=== PATIENT | female | born 1940 | race Caucasian/White ===

== ENCOUNTER → 2018-06-09 08:46 | Outpatient (CLI) | payer MEDICARE, OTHER, SELFPAY ==
[2018-06-09 08:56] LABS: Bacteria 0 SEEN /hpf (None Seen); Mucous, Urine 0 SEEN /hpf (<or=2+); Red Blood Cells-Urine 0 SEEN /hpf (0-5)
[2018-06-09 10:30] LABS: Color, Urine Straw (Yellow); Glucose, Dipstick Normal (Normal); Ketone-Dipstick Negative (Negative); Leukocyte Esterase-Dipstick Negative /ul (Negative); Nitrite-Dipstick Negative (Negative); Occult Blood-Urine 10 /ul (Negative); Protein-Dipstick Negative (Negative); Specific Gravity, Urine 1.005 (1.002-1.030); Urine Bilirubin Dipstick Negative (Negative); Urine Clarity Clear (Clear); Urine Urobilinogen Normal (Normal); Urine pH 6.5 (5.0 - 8.0)
[2018-06-09 10:38] LABS: Squamous Epithelial Cells - UA 0-5 SEEN /hpf (5-10); White Blood Cells 0-5 SEEN /hpf (0-5)
[2018-06-09 10:39] LABS: Erythrocyte Sedimentation Rate 3 mm/hr (0-30)
[2018-06-09 10:41] LABS: Absolute Lymphocyte Count 1.44 X10^3/ul (0.83-4.51); Absolute Neutrophil Count 3.5 X10^3/uL (2.0-7.7); Basophil# 0.02 X10^3/uL; Basophil% 0.4 % (0-1); Eosinophil# 0.09 X10^3/uL; Eosinophils% 1.6 % (0-5); Hematocrit 43.3 % (37-47); Hemoglobin 14.4 g/dl (12.0-15.0); Lymphocyte # 1.44 X10^3/ul (4.0); Lymphocyte % 26.3 % (19-41); Mean Corp Hgb Conc 33.3 g/gl (32-36); Mean Corpuscular Hgb 29.9 pg (27.0-32.0); Monocyte# 0.47 X10^3/uL; Monocyte% 8.6 % (0-10); Neutrophil # 3.45 X10^3/uL (2.7-7.7); Neutrophil % 62.9 % (47-70); Platelet Count 244 K/mm3 (150-450); RBC Distribution Width SD 39.1 fl (35.1-43.9); Red Blood Count 4.81 M/mm3 (4.2-5.4); White Blood Count 5.5 K/mm3 (4.4-11.0)
[2018-06-09 10:42] LABS: POSITIVE COUNT NO; POSITIVE DIFFERENTIAL NO; POSITIVE MORPHOLOGY NO
[2018-06-09 10:55] LABS: T3 Total - Triiodothyronine 1.15 ng/mL (0.6-1.81)
[2018-06-09 10:56] LABS: AST(SGOT) 18 U/L (15-37); Alanine Aminotransfer ALT/SGPT 26 U/L (13-56); Albumin, Serum 3.8 g/dL (3.2-5.0); Alkaline Phosphatase 81 U/L (45-117); Anion Gap 6 (5-15); BUN 24 mg/dL (7-18); BUN/Creat Ratio 26.4 RATIO (10-20); Calcium,Total 9.1 mg/dL (8.5-10.1); Chloride 109 mmol/L (98-107); Creatinine, Serum 0.91 mg/dL (0.55-1.02); EST Glomerular Filtration Rate 63 mL/min (>60); Est Glom Filt Rate - Afr Amer 77 mL/min (>60); Globulin 3.7 g/dL (2.2-4.2); Glucose 96 mg/dL (74-106); Potassium 4.1 mmol/L (3.5-5.1); Protein, Total 7.5 g/dL (6.4-8.2); Sodium Level 143 mmol/L (136-145); T4 Free Direct 0.94 ng/dL (0.76-1.46); Thyroid Stim Hormone (TSH) 2.29 uIU/mL (0.358-3.74)
[2018-06-11 11:00] LABS: ANTINUCLEAR ANTIBODIES DIRECT Negative (Negative)
== END ==
PROVIDERS: Family Provider Internal Medicine; PCP Internal Medicine; Referring Provider Dermatology Pediatric Dermatology; Visit Provider Dermatology Pediatric Dermatology
DX: L20.89 Other atopic dermatitis (principal); L29.8 Other pruritus; L81.7 Pigmented purpuric dermatosis
CPT/HCPCS: 36415; 80053; 81001; 84439; 84443; 84480; 85025; 85652; 86038

== ENCOUNTER → 2018-09-29 08:48 | Outpatient (CLI) | payer MEDICARE, OTHER, SELFPAY ==
[2017-10-21 08:18] VITALS: BMI 25.6
--- NOTE | 2018-09-29 12:24 | PFTCOMP ---
COMPLETE PULMONARY FUNCTION TEST INTERPRETATION Brief HPI: Patient is a 78 year old female, currently under the care of myself, who presents to [facility] for complete pulmonary function tests secondary to diagnosis of COPD. Respiratory therapist reports good effort and reproducible results. Interpretation: Forced expiration spirometry shows no large airways obstructive ventilatory defect with an FEV1 of 96% predicted. There is no significant bronchodilator response by strict ATS criteria. Spirograms are of good quality and plateau normally. The respiratory flow volume loop shows a normal pattern. Lung volumes by body plethysmography show a normal total lung capacity at 4.17 L, 96% predicted. All other lung volumes are within normal limits. Diffusion capacity by carbon monoxide is normal at 85% predicted. The airway resistance is normal. Compared to previous pulmonary function tests from 03/25/2017, there has been no significant change. Impression: These pulmonary function tests are within normal limits and show no significant international exchange coordinator the last 18 months.
== END ==
PROVIDERS: Family Provider Internal Medicine; PCP Internal Medicine; Referring Provider Nurse Practitioner Acute Care; Visit Provider Nurse Practitioner Acute Care
DX: J44.9 Chronic obstructive pulmonary disease, unspecified (principal)
CPT/HCPCS: 94060; 94726; 94729

== ENCOUNTER → 2019-10-25 | Outpatient (CLI) | payer MEDICARE, OTHER, SELFPAY ==
[2018-10-20 07:54] VITALS: BMI 27.4
[2019-10-25 17:47] LABS: Absolute Lymphocyte Count 1.63 X10^3/uL (0.83-4.51); Absolute Neutrophil Count 3.5 X10^3/uL (2.0-7.7); Basophil# 0.04 X10^3/uL; Basophil% 0.7 % (0-1); Eosinophil# 0.07 X10^3/uL; Eosinophils% 1.2 % (0-5); Hematocrit 42.7 % (37-47); Hemoglobin 14.3 g/dL (12.0-15.0); Lymphocyte # 1.63 X10^3/ul (4.0); Lymphocyte % 28.3 % (19-41); Mean Corp Hgb Conc 33.5 g/dL (32-36); Mean Corpuscular Hgb 29.5 pg (27.0-32.0); Mean Corpuscular Volume 88.2 fL (81-99); Mean Platelet Vol. 10.5 fl (6.2-12.0); Monocyte# 0.48 X10^3/uL; Monocyte% 8.3 % (0-10); NRBC Flagged by Analyzer 0 % (0-5); Neutrophil # 3.53 X10^3/uL (2.7-7.7); Neutrophil % 61.3 % (47-70); Platelet Count 245 K/mm3 (150-450); RBC Distribution Width CV 11.8 % (11.6-14.6); Red Blood Count 4.84 M/mm3 (4.2-5.4); White Blood Count 5.8 K/mm3 (4.4-11.0)
[2019-10-25 18:19] LABS: AST(SGOT) 20 U/L (15-37); Alanine Aminotransfer ALT/SGPT 24 U/L (13-56); Albumin, Serum 3.6 g/dL (3.2-5.0); Alkaline Phosphatase 92 U/L (45-117); Anion Gap 5 (5-15); BUN 22 mg/dL (7-18); BUN/Creat Ratio 18.8 RATIO (10-20); Bilirubin, Direct 0.09 mg/dL (0.00-0.30); Calcium,Total 9.1 mg/dL (8.5-10.1); Chloride 110 mmol/L (98-107); Cholesterol 207 mg/dL (200); Creatinine, Serum 1.17 mg/dL (0.55-1.02); EST Glomerular Filtration Rate 47 mL/min (>60); Est Glom Filt Rate - Afr Amer 57 mL/min (>60); Globulin 3.5 g/dL (2.2-4.2); Glucose 104 mg/dL (74-106); High Density Lipoprotein 51 mg/dL; Protein, Total 7.1 g/dL (6.4-8.2); Sodium Level 142 mmol/L (136-145); Triglycerides 160 mg/dL; Very Low Density Lipoprotein 32 mg/dL (5-40)
[2019-10-28 12:07] LABS: QNTFERON TB Mitogen Value > 10.00 IU/mL (.); QNTFERON TB Nil Value 0.04 IU/mL (.); QNTFERON TB1+ Ag Value 0.06 IU/mL (.); QNTFERON TB2+ Ag Value 0.06 IU/mL (.)
[2019-10-28 14:04] LABS: QNTIFERON TB Positive Criteria Negative (Negative)
== END | disposition home or self-care (01) ==
LOC: MTLAB 14:54
PROVIDERS: PCP Internal Medicine; Referring Provider Dermatology; Visit Provider Dermatology
DX: L40.0 Psoriasis vulgaris (principal); Z79.899 Other long term (current) drug therapy
CPT/HCPCS: 36415; 80053; 80061; 82248; 85025; 86480

== ENCOUNTER 2020-11-28 08:48 | Observation (INO) | payer MEDICARE, OTHER, SELFPAY ==
[2019-11-30 11:21] VITALS: BMI 27.4
[2020-11-28] VITALS (10 sets, daily range): BP systolic 139–178; BP diastolic 76–100; PULSE 67–75; RESP 16–21; TEMP 36.3–36.8; O2SAT 96–100; BMI 27.8; BMI 28.5
--- NOTE | 2020-11-28 09:06 | EKG12_ITS ---
Test Reason : DIZZY Blood Pressure : / mmHG Vent. Rate : 068 BPM Atrial Rate : 068 BPM P-R Int : 158 ms QRS Dur : 090 ms QT Int : 436 ms P-R-T Axes : 030 -17 022 degrees QTc Int : 463 ms Normal sinus rhythm Inferior infarct , age undetermined Anterior infarct , age undetermined Abnormal ECG Confirmed by NIKUNJ HUDDLESTON, JON ([id number]), marketing editor MARCOS SAENZ ([id number]) on 12/01/2020 2:52:26 PM Referred By: FAWN Confirmed By:AMANDA CALVIN MD
--- NOTE | 2020-11-28 09:06 | CT_ITS ---
STUDY: CT BRAIN WITHOUT CONTRAST REASON FOR EXAM: Female, 80 years old. Vertigo RADIATION DOSAGE (If Supplied By Facility): CTDIvol = ( 44.99 ) mGy, DLP = ( 779.24 ) mGycm TECHNIQUE: Transaxial CT imaging of the brain was performed without administration of intravenous contrast material. Individualized dose optimization techniques were used for this CT. COMPARISON: No relevant priors. FINDINGS: Normal soft tissue structures. Normal calvarium. There is moderate cerebral atrophy with widening of the extra-axial spaces and ventricular dilatation. There are areas of decreased attenuation within the white matter tracts of the supratentorial brain, consistent with microvascular disease changes. Normal basal ganglia and thalami. Normal brainstem. There is mild cerebellar atrophy. There is no intracranial hemorrhage. There are no findings of an acute ischemic infarction. Normal visualized paranasal sinuses. CT/Brain/Head without Contrast IMPRESSION: Chronic involutional changes of the brain. No acute hemorrhage Electronically Signed: Ja Jules MD at 10:06 EDT , Service support ,
--- NOTE | 2020-11-28 09:09 | ED.DCSUM_ITS ---
History of Present Illness Chief Complaint: Dizziness Informant: Patient Onset: Today Narrative: Presents with sudden onset of room spinning while getting ready for massage therapy. Nausea with symptoms. Symptoms worse with movement. Reports awaking with mild off balance symptoms states while walking mildly bumped her head on a cabinet however was not significant. Denies any headache or visual changes. No speech changes. No hemiparesis. States had similar symptoms 15 years ago. She states she was evaluated in ED however not admitted. Denies any stroke history. Denies any recent sinus congestion ear pain or ringing. She does wear hearing aids. Patient does report she has pain when she urinates however not significant. Prior similar symptoms: Yes Past Medical History - Allergies and Home Meds Allergies/Adverse Reactions: Allergies Latex, Natural Rubber Allergy (Mild, Verified 10/20/18 07:31) simvastatin [From Zocor] Allergy (Mild, Verified 10/20/18 07:31) guaifenesin [From Robitussin] Allergy (Verified 10/20/18 07:31) Unknown Penicillins Allergy (Verified 10/20/18 07:31) Unknown Sulfa (Sulfonamide Antibiotics) Allergy (Verified 10/20/18 07:31) Unknown Primary Care Physician: Suyapa Jordan MD [Primary Care Provider] - Past Medical History: - - COPD, hypertension Smoking Status: Never smoker Review of Systems General: Denies: Chills, Fever, Sweats Eyes: Denies: Visual changes - bilaterally, Diplopia ENT: Denies: Rhinorrhea, Sore throat Cardiovascular: Denies: Chest pain, Palpitations Respiratory: Denies: Dyspnea, Cough, Dyspnea on exertion Gastrointestinal: Reports: Nausea. Denies: Abdominal pain, Vomiting, Diarrhea, Melena, Hematochezia Genitourinary: Denies: Dysuria, Hematuria, Frequency Musculoskeletal: Denies: Back pain, Extremity Pain Skin: Denies: Rash, Wounds Neurological: Reports: - - Vertigo. Denies: Headache, Weakness, Numbness Physical Exam Vital Signs/Narrative: Vital Signs Temp Pulse Resp BP Pulse Ox 11/28/20 08:49 97.4 F L 67 17 139/84 H 100 Inital Vital Signs reviewed: Yes General: Well nourished, Well developed, No Acute Distress Head: Normocephalic, Atraumatic Eyes: Perrl, EOMI, - - No nystagmus ENT: Moist mucous membranes, No rhinorrhea Neck: Supple, Nontender Cardiovascular: Regular rate, Regular rhythm, No murmurs Respiratory: No distress, CTA bilaterally, Chest nontender Abdomen: Soft, Nontender, Nondistended, Normal bowel sounds Back: Nontender, Normal Inspection Extremities: Nontender, No edema Skin: Normal color, No rash Neurological: Alert, Oriented x3, Cranial nerves II-XII grossly intact, Normal Strength, Normal Sensation, - - NIH 0. Ivette-Hallpike did not elicit any nystagmus, however with laying down each side she would have recurrent symptoms of vertigo. Psychological: Normal affect, Normal Mood Diagnostic/Tx/Re-eval Clinical Impression(s) from Imaging Studies Brain CT 11/28/20 09:06 IMPRESSION: Chronic involutional changes of the brain. No acute hemorrhage Electronically Signed: Ja Jules MD at 10:06 EDT , Service support , Abnormal Lab Results 11/28/20 11/28/20 11/28/20 09:36 09:36 09:36 WBC 5.7 RBC 4.95 Hgb 14.6 Hct 43.8 MCV 88.5 MCH 29.5 MCHC 33.3 RDW Std Deviation 39.2 RDW Coeff of Catrina 12.1 Plt Count 249 MPV 9.6 Immature Gran % (Auto) 0.400 Neut % (Auto) 68.6 Lymph % (Auto) 22.0 [place] % (Auto) 6.3 Eos % (Auto) 1.8 Baso % (Auto) 0.9 Absolute Neuts (auto) 3.9 Absolute Lymphs (auto) 1.25 Nucleated RBC % 0 PT 11.8 INR 0.9 APTT 25.8 Sodium 142 Potassium 3.4 L Chloride 109 H Carbon Dioxide 29.0 Anion Gap 4 L BUN 17 Creatinine 0.91 Estim Creat Clear Calc 40.11 Est GFR (MDRD) Af Amer 76 Est GFR (MDRD) Non-Af 63 BUN/Creatinine Ratio 18.7 Glucose 101 Calcium 9.3 Urine Color Urine Clarity Urine pH Ur Specific [place] Urine Protein Urine Glucose (UA) Urine Ketones Urine Occult Blood Urine Nitrite Urine Bilirubin Urine Urobilinogen Ur Leukocyte Esterase Urine RBC Urine WBC Ur Squamous Epith Cells Urine Bacteria Urine Mucus 11/28/20 09:36 WBC RBC Hgb Hct MCV MCH MCHC RDW Std Deviation RDW Coeff of Catrina Plt Count MPV Immature Gran % (Auto) Neut % (Auto) Lymph % (Auto) [place] % (Auto) Eos % (Auto) Baso % (Auto) Absolute Neuts (auto) Absolute Lymphs (auto) Nucleated RBC % PT INR APTT Sodium Potassium Chloride Carbon Dioxide Anion Gap BUN Creatinine Estim Creat Clear Calc Est GFR (MDRD) Af Amer Est GFR (MDRD) Non-Af BUN/Creatinine Ratio Glucose Calcium Urine Color Yellow Urine Clarity Clear Urine pH 7.0 Ur Specific [place] 1.010 Urine Protein Negative Urine Glucose (UA) Normal Urine Ketones Negative Urine Occult Blood 10 H Urine Nitrite Negative Urine Bilirubin Negative Urine Urobilinogen Normal Ur Leukocyte Esterase 25 H Urine RBC 0-5 SEEN Urine WBC 0-5 SEEN Ur Squamous Epith Cells 0-5 SEEN Urine Bacteria 0 SEEN Urine Mucus 0 SEEN - EKG Initial EKG Interpretation: Sinus Rhythm - Sinus rate of 68, no ST changes. T wave inversion in leads III. - Medical Decision Making Patient acute vertigo symptoms. There is no nystagmus with Ivette-Hallpike however she was symptomatic on each side. Work-up initiated CT head negative basic labs normal she initially given IV Reglan with some improvement of symptoms her nausea is much better. She was ambulated to the restroom for urine sample however required 2 person assist for stability. Urine was sent had 25 leukocytes, culture sent. With patient being continued symptomatic with instability I feel she will benefit from inpatient management. Concerns there could be a posterior circulation component with her acute onset of vertigo symptoms. Bedside swallow by nursing, oral meclizine ordered. I discussed with hospitalist Dr. Dumas, patient reporting pain when she urinates with leukocytes we will give a dose of Rocephin in the ED. Urine culture pending. Patient and family updated. ED Disposition - Plan for ED Patient: Disposition: Acute Care Hospital [facility] Diagnosis: Acute severe vertigo, UTI (urinary tract infection) Referrals: Suyapa Jordan MD [Primary Care Provider] -
[2020-11-28] MEDS: Metoclopramide 10 MG/2 ML Vial 5 MG IV (09:27)
[2020-11-28] MEDS: 0.9% Normal Saline 1,000 ML 150 ML IV (09:28)
[2020-11-28 09:38] LABS: Absolute Lymphocyte Count 1.25 X10^3/uL (0.83-4.51); Absolute Neutrophil Count 3.9 X10^3/uL (2.0-7.7); Basophil# 0.05 X10^3/uL; Basophil% 0.9 % (0-1); Eosinophils% 1.8 % (0-5); Hematocrit 43.8 % (37-47); Hemoglobin 14.6 g/dL (12.0-15.0); Lymphocyte # 1.25 X10^3/ul (4.0); Mean Corp Hgb Conc 33.3 g/dL (32-36); Mean Corpuscular Hgb 29.5 pg (27.0-32.0); Mean Corpuscular Volume 88.5 fL (81-99); Mean Platelet Vol. 9.6 fl (6.2-12.0); Monocyte# 0.36 X10^3/uL; Monocyte% 6.3 % (0-10); NRBC Flagged by Analyzer 0 % (0-5); Neutrophil % 68.6 % (47-70); Platelet Count 249 K/mm3 (150-450); RBC Distribution Width CV 12.1 % (11.6-14.6); RBC Distribution Width SD 39.2 fl (35.1-43.9); Red Blood Count 4.95 M/mm3 (4.2-5.4); White Blood Count 5.7 K/mm3 (4.4-11.0)
[2020-11-28 09:49] LABS: International Normalized Ratio 0.9; Prothrombin Time (Protime)PT. 11.8 SECONDS (11.7-14.9)
[2020-11-28 09:50] LABS: Partial Thromboplast Time 25.8 Seconds (24.1-36.2)
[2020-11-28 09:52] LABS: Anion Gap 4 (5-15); BUN 17 mg/dL (7-18); BUN/Creat Ratio 18.7 RATIO (10-20); Calcium,Total 9.3 mg/dL (8.5-10.1); Chloride 109 mmol/L (98-107); Creatinine, Serum 0.91 mg/dL (0.55-1.02); EST Glomerular Filtration Rate 63 mL/min (>60); Est Glom Filt Rate - Afr Amer 76 mL/min (>60); Estimated Creatinine Clearance 40.11 ml/min; Glucose 101 mg/dL (74-106); Potassium 3.4 mmol/L (3.5-5.1); Sodium Level 142 mmol/L (136-145)
[2020-11-28 11:13] LABS: Bacteria 0 SEEN /hpf (None Seen); Mucous, Urine 0 SEEN /hpf (<or=2+)
[2020-11-28] MEDS: Meclizine 12.5 MG Tablet PO (11:13)
[2020-11-28 11:17] LABS: Color, Urine Yellow (Yellow); Glucose, Dipstick Normal (Normal); Ketone-Dipstick Negative (Negative); Leukocyte Esterase-Dipstick 25 /ul (Negative); Nitrite-Dipstick Negative (Negative); Occult Blood-Urine 10 /ul (Negative); Protein-Dipstick Negative (Negative); Urine Bilirubin Dipstick Negative (Negative); Urine Clarity Clear (Clear); Urine Urobilinogen Normal (Normal)
[2020-11-28 11:25] LABS: Red Blood Cells-Urine 0-5 SEEN /hpf (0-5); Squamous Epithelial Cells - UA 0-5 SEEN /hpf (5-10); White Blood Cells 0-5 SEEN /hpf (0-5)
[2020-11-28] MEDS: Ceftriaxone 1 GM/50 ML BAG IV (11:44)
--- NOTE | 2020-11-28 12:32 | MRI_ITS ---
STUDY: MRI BRAIN WITHOUT CONTRAST REASON FOR EXAM: Female, 80 years old. vertigo, ataxia -- Screws and plate in the left forearm TECHNIQUE: Standardized multiplanar fat and water weighted pulse sequences were obtained. COMPARISON: CT of the brain 11/28/2020 FINDINGS: Moderate atrophy and periventricular white matter ischemic change without mass effect or restricted diffusion.. Chronic ischemic changes of the michel. Normal bilateral basal ganglia. 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 There is no extra-axial fluid accumulation. Normal flow voids within the major intracranial circulation suggesting patency by spin echo criteria. Normal sella turcica, pituitary gland, infundibular stalk, optic chiasm and hypothalamus. Normal tectal plate and pineal gland. Normal midbrain, and medulla. Diffuse cerebellar atrophy.. Normal basal cisterns. Normal bilateral temporal bones. Normal bilateral internal auditory canals. Postsurgical changes of the orbits. Normal visualized paranasal sinuses. Normal calvarium and skull base. Normal visualized soft tissue structures. Normal visualized upper cervical spine. MRI/Brain without Contrast IMPRESSION: Atrophy and periventricular white matter ischemic changes. No evidence for acute infarct. Chronic ischemic changes of the michel and old lacunar infarct of left posterior thalamus Electronically Signed: Tomy Quijano MD at 16:06 EDT , Service support ,
[2020-11-28 13:15] LABS: Magnesium 2.4 mg/dL (1.6-2.6)
--- NOTE | 2020-11-28 13:35 | PCM.HP.STD ---
Problem List (1) Acute severe vertigo Status: Acute (2) UTI (urinary tract infection) Status: Acute (3) History of cataract extraction Status: Resolved (4) History of amputation of right great toe Status: Resolved (5) History of appendectomy Status: Resolved (6) history of left arm surgery Status: Resolved (7) history of hand reconstruction Status: Resolved (8) Psoriasis Status: Chronic (9) Urticaria Status: Chronic (10) Acute gastritis Status: Acute (11) Esophagitis Status: Chronic (12) Diverticulitis of colon Status: Chronic (13) Chronic cough Status: Chronic (14) Hoarseness Status: Chronic (15) Overweight Status: Chronic (16) HUMPHRIES (dyspnea on exertion) Status: Chronic (17) Stage 1 mild COPD by GOLD classification Status: Chronic History of Present Illness Date of Admission: 11/28/20 Chief Complaint: Vertigo in the morning. The patient is a 80 year old F with multiple comorbidities as listed above came to ER after she had sudden onset of vertigo. While she was getting ready for massage therapy, she felt the room was spinning along with nausea but no vomiting. She also has gait instability/loss of balance when she stands up and feels like falling. As per ER physician note, she also bumped her head on a cabinet but no significant injury. Denies headache, neck pain, blurry vision, focal weakness, numbness or tingling, dysarthria, dysphagia or language deficit. Denies previous history of a stroke. Her sister had a stroke in the past. She also complained of burning micturition but no increased frequency or urgency. UA negative WBC 0-5 cells, LE 25. Urine culture ordered. In ED, triage vitals shows elevated blood pressure 178/100, heart rate 69 but no hypoxia or tachypnea. Twelve-lead EKG shows normal sinus rhythm at 68 bpm, QTC [address] head without contrast no acute intracranial abnormality. Past Medical History Past Medical History (Chronic Problems): Chronic Problems (Last Reviewed 10/20/18 @ 07:30 by Lila Plunkett) Psoriasis (Chronic) Urticaria (Chronic) Esophagitis (Chronic) Diverticulitis of colon (Chronic) Chronic cough (Chronic) Hoarseness (Chronic) Overweight (Chronic) HUMPHRIES (dyspnea on exertion) (Chronic) Stage 1 mild COPD by GOLD classification (Chronic) Medical History: Medical History (Last Reviewed 10/20/18 @ 07:30 by Lila Plunkett) Psoriasis (Chronic) L40.9 Urticaria (Chronic) L50.9 Acute gastritis (Acute) K29.00 Esophagitis (Chronic) K20.9 Diverticulitis of colon (Chronic) K57.32 Chronic cough (Chronic) R05 Hoarseness (Chronic) R49.0 Overweight (Chronic) E66.3 HUMPHRIES (dyspnea on exertion) (Chronic) R06.09 Stage 1 mild COPD by GOLD classification (Chronic) J44.9 Allergies Latex, Natural Rubber Allergy (Mild, Verified 10/20/18 07:31) simvastatin [From Zocor] Allergy (Mild, Verified 10/20/18 07:31) guaifenesin [From Robitussin] Allergy (Verified 10/20/18 07:31) Unknown Penicillins Allergy (Verified 10/20/18 07:31) Unknown Sulfa (Sulfonamide Antibiotics) Allergy (Verified 10/20/18 07:31) Unknown Home Medications: Ambulatory Orders Medication Instructions Recorded Esomeprazole Mag Trihydrate 40 mg PO DAILY 06/24/15 [Nexium] amlodipine 10 mg tablet 10 mg PO QDAY 10/09/17 benzonatate 200 mg capsule 200 mg PO TID PRN 10/09/17 furosemide 20 mg tablet 20 mg PO DAILY 10/09/17 magnesium 250 mg tablet 125 mg PO QDAY 10/09/17 potassium gluconate 595 mg (99 mg) 595 mg PO QDAY tab 10/09/17 tablet aclidinium bromide 400 1 inh INHALATION Q12H #1 ea 11/30/19 mcg/actuation breath activated powder inhaler Aclidinium [place] [Tudorza 400 mcg IH BID 11/28/20 Pressair] Lisinopril 10 mg PO DAILY 11/28/20 Surgical History: Surgical History (Last Reviewed 10/20/18 @ 07:30 by Lila Plunkett) History of cataract extraction (Resolved) Z98.49 History of amputation of right great toe (Resolved) Z98.890, Z89.411 History of appendectomy (Resolved) Z98.890, Z90.49 history of left arm surgery (Resolved) history of hand reconstruction (Resolved) Smoking Status: Never smoker Tobacco Use: Non-smoker - *Family History Maternal Family History: Family History (Last Reviewed 10/20/18 @ 07:30 by Lila Plunkett) Mother Colon cancer Father Colon cancer Sister Breast cancer Diabetes CVA (cerebral vascular accident) Cervical cancer Brother Heart disease Daughter COPD (chronic obstructive pulmonary disease) Son Diabetes Review of Systems Constitutional: Denies: Chills, Fever, Weight Change HEENT: Reports: Difficulty Hearing - Chronic, Hard of Hearing. Denies: Difficulty Swallowing, Dysphasia, Head Aches, Hearing Changes, Nasal bleeding, Nasal Congestion, Post Nasal Drip, Sinus Congestion, Sinus Drainage, Visual Changes Cardiovascular: Denies: Chest Pain, Palpitations Respiratory: Denies: Cough, Shortness of breath at rest, Sputum production Gastrointestinal: Denies: Abdominal Pain, Nausea, Vomiting Genitourinary: Reports: Dysuria. Denies: Frequency, Hematuria, Urgency Musculoskeletal: Reports: Back Pain. Denies: Joint Pain, Joint Tenderness Skin: Denies: Rash, Wounds Neurological: Reports: Balance problems, Incoordination. Denies: Focal weakness, Numbness, Tingling Psychiatric: Denies: Anxiety, Depression, Homicidal Ideations, Suicidal Ideations Hematologic/ Lymphatic: Denies: Easy Bruising, Easy Bleeding VTE Information - Inpt Only VTE Present on Admission: No VTE Mechan Device Prophylaxis: None VTE Pharm Prophylaxis ordered?: Yes Patient Problems: Active and Suspected Problems (Last Reviewed 10/20/18 @ 07:30 by Lila Plunkett) Acute severe vertigo (Acute) UTI (urinary tract infection) (Acute) Objective: General: Alert, Oriented x3, Cooperative HEENT: No nystagmus noted. Atraumatic, PERRLA, EOMI, Normocephalic Oral: No Gingival or Mucosal Lesions/ Ulcerations Neck: Supple, No JVD, Negative Carotid Bruits Lungs: Air entry diminished in bilateral lung bases. No crepitation/rhonchi Cardiovascular: Regular rate, Regular Rhythm, Normal S1, Normal S2, No murmurs Abdomen: Bowel Sounds Present, Soft, Non Tender, Non-Distended : No renal angle tenderness. No suprapubic tenderness. Extremities: No edema, Capillary Refill Less than 3 Seconds Skin: No rashes, No breakdown Musculoskeletal: No Tenderness to Palpation of Joints or Extremities. Gait instability. Neurological: Cranial nerves II-XII grossly intact, Deep Tendon Reflexes 2+/4. NIHSS stroke scale 2; 1 for left leg mild drift and 1 for abnormal finger-nose test/heel valenzuela test. Mild weakness on the left lower leg. Psych/Mental Status: Normal Affect, Appropriate. - Physical Exam Vitals/I&O's: Vital Signs Temp Pulse Resp BP Pulse Ox 97.4 F L 70 18 168/80 H 97 11/28/20 12:26 11/28/20 12:26 11/28/20 12:26 11/28/20 12:26 11/28/20 12:26 Oxygen Delivery Method Room Air Weight: 155 lb 14.4 oz Body Mass Index (BMI) 28.5 Intake and Output for Last 24 Hours 11/26/20 11/27/20 11/28/20 23:59 23:59 23:59 Intake Total 50 / 50 Balance 50 / 50 Laboratory Results 11/28/20 09:36: WBC 5.7, RBC 4.95, Hgb 14.6, Hct 43.8, MCV 88.5, MCH 29.5, MCHC 33.3, RDW Std Deviation 39.2, RDW Coeff of Catrina 12.1, Plt Count 249, MPV 9.6, Immature Gran % (Auto) 0.400, Neut % (Auto) 68.6, Lymph % (Auto) 22.0, [place] % (Auto) 6.3, Eos % (Auto) 1.8, Baso % (Auto) 0.9, Absolute Neuts (auto) 3.9, Absolute Lymphs (auto) 1.25, Nucleated RBC % 0 11/28/20 09:36: Sodium 142, Potassium 3.4 L, Chloride 109 H, Carbon Dioxide 29.0, Anion Gap 4 L, BUN 17, Creatinine 0.91, Estim Creat Clear Calc 40.11, Est GFR (MDRD) Af Amer 76, Est GFR (MDRD) Non-Af 63, BUN/Creatinine Ratio 18.7, Glucose 101, Calcium 9.3 11/28/20 09:36: PT 11.8, INR 0.9, APTT 25.8 11/28/20 09:36: Urine Color Yellow, Urine Clarity Clear, Urine pH 7.0, Ur Specific [place] 1.010, Urine Protein Negative, Urine Glucose (UA) Normal, Urine Ketones Negative, Urine Occult Blood 10 H, Urine Nitrite Negative, Urine Bilirubin Negative, Urine Urobilinogen Normal, Ur Leukocyte Esterase 25 H, Urine RBC 0-5 SEEN, Urine WBC 0-5 SEEN, Ur Squamous Epith Cells 0-5 SEEN, Urine Bacteria 0 SEEN, Urine Mucus 0 SEEN 11/28/20 12:50: Magnesium 2.4, Troponin I < 0.015 Current Medications Acetaminophen (Acetaminophen 325 Mg Tablet) 650 mg PO Q6H PRN PRN PRN Reason: Pain Score 1-10/Temp > 100.7 F Al Hydroxide/Mg Hydroxide (Mag Hydrox/Al Hydrox/Simeth 30 Ml Udc) 30 ml PO Q6H PRN PRN PRN Reason: Gastric Burning Albuterol Sulfate (Albuterol 2.5 Mg/3 Ml Vial.Neb.) 2.5 mg INHALATION Q2H PRN PRN PRN Reason: SOB/Wheezing Amlodipine Besylate (Amlodipine 10 Mg Tablet) 10 mg PO DAILY [facility] Benzonatate (Benzonatate 100 Mg Capsule) 200 mg PO TID PRN PRN Reason: COUGH Furosemide (Furosemide 20 Mg Tablet) 20 mg PO DAILY [facility] Hydralazine HCl (Hydralazine 20 Mg/Ml Vial) 5 mg IV Q30M PRN PRN Reason: to maintain BP goals Lactated Ringer's () 1,000 mls @ 75 mls/hr IV .[id number] [facility] Stop: 11/29/20 01:51 Labetalol HCl (Labetalol (Prefilled) 20 Mg/4 Ml) 10 - 20 mg IV Q10M PRN PRN PRN Reason: to Maintain BP Goals Lisinopril (Lisinopril 10 Mg Tablet) 10 mg PO DAILY [facility] Morphine Sulfate (Morphine 2 Mg/Ml Syringe) 2 mg IV Q3H PRN PRN PRN Reason: Pain Score 6-10 Nitroglycerin (Nitroglycerin (Inpatient Use) 0.4 Mg Tab.Subl) 0.4 mg SL Q5M PRN PRN Reason: CARDIAC/CHEST PAIN Ondansetron HCl (Ondansetron 4 Mg/2 Ml Vial) 4 mg IV Q8H PRN PRN PRN Reason: NAUSEA/VOMITING Oxycodone HCl (Oxycodone 5 Mg Tablet) 5 mg PO Q4H PRN PRN PRN Reason: Pain Score 4-5 Pantoprazole Sodium (Pantoprazole Sodium 40 Mg Tablet) 40 mg PO DAILY [facility] Assessment/Plan All Active Problems (Last Reviewed 10/20/18 @ 07:30 by Lila Plunkett) Acute severe vertigo (Acute) UTI (urinary tract infection) (Acute) History of cataract extraction (Resolved) History of amputation of right great toe (Resolved) History of appendectomy (Resolved) history of left arm surgery (Resolved) history of hand reconstruction (Resolved) Acute gastritis (Acute) This 80-year-old female admitted for sudden onset of vertigo and found to have gait instability/loss of equilibrium. 1. Vertigo/gait instability concern for posterior fossa stroke: Patient is being admitted to PCU. Follow up TIA/stroke protocol with NIH stroke scale monitoring, BP and glucose control and MRI brain. PT OT and speech evaluation. If MRI is abnormal/positive for acute stroke, will do head and neck vascular study and 2D echo. EKG shows normal sinus rhythm. troponin magnesium normal. No prior history of a stroke. 2. Concern of acute cystitis: Burning micturition but UA is benign. Empirically started on IV ceftriaxone. Urine culture ordered. 3. Stage I mild COPD: At home, patient is Tudorza inhalation. DuoNeb as needed while in the hospital for shortness of breath. 4. Hypertension: Current 148/76. Control blood pressure as per stroke guidelines. 5. Other chronic comorbidities include gastritis, esophagitis, psoriasis history of urticaria: Home medication reconciliation done. VTE prophylaxis: On Lovenox 40 mg subcu daily. Living will/advanced directive/end of life care: Patient does not have living will or advanced directive. Her , Yossi Strickland is next to kin and power of regulatory attorney for health. After discussion of benefits/risks procedures involved with full code, DNR CC arrest and DNR CC, the patient opted for DNR-CC Arrest with no intubation Patient does not want artificial life support including intubation, tube feed, ventilator and/chest compression, central venous catheter, vasopressor and DC shock if needed but at same time does not want to be neglected. She was reassured of proper medical care; not to be neglected. Total time spent in [id number]-[id number] encounter in discussion of advanced directive 16 minutes. OBSV E&M: 73670 Initial observation care L3 Procedures: 15847 Advncd Care Plan 30 Min
[2020-11-28] MEDS: Potassium Chloride Oral Tablet 20 MEQ 40 MEQ PO (13:53)
[2020-11-28] MEDS: Lactated Ringers 1,000 ML 75 ML IV (13:54)
[2020-11-28] MEDS: Enoxaparin 40 MG/0.4 ML Syringe SC (16:21)
[2020-11-29] VITALS (7 sets, daily range): BP systolic 119–145; BP diastolic 77–90; PULSE 68–79; RESP 16–18; TEMP 36.6–37.1; O2SAT 97–98
[2020-11-29 05:47] LABS: Anion Gap 2 (5-15); BUN 13 mg/dL (7-18); Calcium,Total 8.9 mg/dL (8.5-10.1); Chloride 110 mmol/L (98-107); Cholesterol 174 mg/dL (200); Creatinine, Serum 0.86 mg/dL (0.55-1.02); EST Glomerular Filtration Rate 67 mL/min (>60); Est Glom Filt Rate - Afr Amer 81 mL/min (>60); Estimated Creatinine Clearance 40.58 ml/min; Glucose 91 mg/dL (74-106); High Density Lipoprotein 39 mg/dL; Potassium 3.8 mmol/L (3.5-5.1); Sodium Level 142 mmol/L (136-145); Thyroid Stim Hormone (TSH) 2.92 uIU/mL (0.358-3.74); Triglycerides 188 mg/dL; Very Low Density Lipoprotein 38 mg/dL (5-40)
[2020-11-29] MEDS: Pantoprazole Sodium 40 MG Tablet PO (09:17)
[2020-11-29] MEDS: Furosemide 20 MG Tablet PO (09:17)
--- NOTE | 2020-11-29 09:31 | PCM.DC ---
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) You will use the following diet at home:: Cardiac Your food should be the consistency of: Regular Discharge Activity: May Not Drive Weight Bearing Status: Weight bearing as tolerated Call your doctor if you observe: Fever of 101 or Higher, Numbness or Tingling, Change in Color, Inability to urinate, Inability to have a bowel movement, Using more than one pad per hour, Shortness of breath, Dizziness, Fainting spells, Swelling in the ankles, Chest pain, Prolonged hiccoughing, Increased palpitations (irregular heartbeat), Calf discomfort, Uncontrolled pain Allergies/Adverse Reactions: Allergies Latex, Natural Rubber Allergy (Mild, Verified 10/20/18 07:31) simvastatin [From Zocor] Allergy (Mild, Verified 10/20/18 07:31) guaifenesin [From Robitussin] Allergy (Verified 10/20/18 07:31) Unknown Penicillins Allergy (Verified 10/20/18 07:31) Unknown Sulfa (Sulfonamide Antibiotics) Allergy (Verified 10/20/18 07:31) Unknown Medications to take at Discharge Esomeprazole Mag Trihydrate [Nexium] 40 mg PO DAILY 06/24/15 benzonatate 200 mg capsule 200 mg PO TID PRN 10/09/17 magnesium 250 mg tablet 125 mg PO QDAY 10/09/17 potassium gluconate 595 mg (99 mg) tablet 595 mg PO QDAY tab 10/09/17 aclidinium bromide 400 mcg/actuation breath activated powder inhaler 1 inh INHALATION Q12H #1 ea 11/30/19 Aclidinium [place] [Tudorza Pressair] 400 mcg IH BID 11/28/20 Amlodipine Besylate [Norvasc] 10 mg PO QDAY #0 11/29/20 Furosemide [Lasix] 20 mg PO DAILY PRN PRN #0 11/29/20 Lisinopril 10 mg PO DAILY #0 11/29/20 Meclizine HCl [Antivert] 12.5 mg PO 4X/DAY PRN PRN #30 tablet 11/29/20 The following prescriptions were given: Meclizine HCl [Antivert] 12.5 mg PO 4X/DAY PRN PRN #30 tablet PRN Reason: dizziness Transmission Status: Pending to [facility]/pharmacy #[id number] Primary Care Physician: Suyapa Jordan MD [Primary Care Provider] - Please follow up with your Primary Care Physician in: in 2 weeks Test Results: Test results from this visit will be discussed in further detail at your follow-up appointment, if applicable.
--- NOTE | 2020-11-29 09:33 | DS.PCM_ITS ---
Discharge Date and Diagnosis - Problem List Patient Problems: Active and Suspected Problems (Last Reviewed 10/20/18 @ 07:30 by Lila Plunkett) Acute severe vertigo (Acute) UTI (urinary tract infection) (Acute) Acute gastritis (Acute) Date of Admission: 11/28/20 Date of Discharge: 11/29/20 - Primary Discharge Diagnosis Acute Problems: Active Problems (Last Reviewed 10/20/18 @ 07:30 by Lila Plunkett) Acute severe vertigo (Acute) UTI (urinary tract infection) (Acute) Acute gastritis (Acute) - Secondary Discharge Diagnosis Chronic Problems: Chronic Problems (Last Reviewed 10/20/18 @ 07:30 by Lila Plunkett) Psoriasis (Chronic) Urticaria (Chronic) Esophagitis (Chronic) Diverticulitis of colon (Chronic) Chronic cough (Chronic) Hoarseness (Chronic) Overweight (Chronic) HUMPHRIES (dyspnea on exertion) (Chronic) 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 1. Vertigo/gait instability most likely due to BPPV patient is being admitted to PCU. MRI brain negative for acute change. 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 Patient was evaluated by PT and OT and recommended no further therapy. Patient symptoms resolved. EKG shows normal sinus rhythm. troponin magnesium normal. No prior history of a stroke. 2. Mild acute cystitis: Burning micturition but UA is benign. 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 Patient had 1 dose of Rocephin in the hospital. Culture is in nonpathologic range but decided to treat this patient with symptoms. Discharged on Levaquin 500 mg daily for 2 days. 3. Stage I mild COPD: At home, patient is Tudorza inhalation. Tudorza resumed 4. Hypertension: Current 148/76. BP controlled. 5. Other chronic comorbidities include gastritis, esophagitis, psoriasis history of urticaria: Discharge medication reconciliation done. Discharge follow-up instructions completed. Discharge process discussed with the patient and all questions were answered to patient's satisfaction. Prescription for meclizine given. Patient advised to follow-up with neurologist Dr. Meyer Total time spent, exact 35 minutes on discharge meds reconciliation, examination, coordination of care with nurses and ancillary staff, review of imaging and blood test and discussion with the patient on follow-up instructions Patient Problems: Active and Suspected Problems (Last Reviewed 10/20/18 @ 07:30 by Lila Plunkett) Acute severe vertigo (Acute) UTI (urinary tract infection) (Acute) Acute gastritis (Acute) Objective: Seen and examined. Patient dizziness and vertigo has resolved. At bedside, Ivette-Hallpike test was done was negative for vertigo, dizziness or nystagmus. Dysuria has resolved. On physical exam General: Alert, Oriented x3, Cooperative HEENT: No nystagmus noted. Atraumatic, PERRLA, EOMI, Normocephalic Oral: No Gingival or Mucosal Lesions/ Ulcerations Neck: Supple, No JVD, Negative Carotid Bruits Lungs: Air entry diminished in bilateral lung bases. No crepitation/rhonchi Cardiovascular: Regular rate, Regular Rhythm, Normal S1, Normal S2, No murmurs Abdomen: Bowel Sounds Present, Soft, Non Tender, Non-Distended : No renal angle tenderness. No suprapubic tenderness. Extremities: No edema, Capillary Refill Less than 3 Seconds Skin: No rashes, No breakdown Musculoskeletal: No Tenderness to Palpation of Joints or Extremities. Gait instability. Neurological: Cranial nerves II-XII grossly intact, Deep Tendon Reflexes 2+/4. NIH stroke scale 0. Psych/Mental Status: Normal Affect, Appropriate. - Physical Exam Vitals/I&O's: Vital Signs Temp Pulse Resp BP Pulse Ox 98.2 F 79 16 142/81 H 97 11/29/20 02:15 11/29/20 07:35 11/29/20 02:15 11/29/20 02:15 11/29/20 02:15 Oxygen Delivery Method Room Air Weight: 155 lb 14.4 oz Body Mass Index (BMI) 28.5 Intake and Output for Last 24 Hours 11/27/20 11/28/20 11/29/20 23:59 23:59 23:59 Intake Total 1227.5 / 1227.5 1240 / 1240 Balance 1227.5 / 1227.5 1240 / 1240 Laboratory Results 11/28/20 09:36: WBC 5.7, RBC 4.95, Hgb 14.6, Hct 43.8, MCV 88.5, MCH 29.5, MCHC 33.3, RDW Std Deviation 39.2, RDW Coeff of Catrina 12.1, Plt Count 249, MPV 9.6, Immature Gran % (Auto) 0.400, Neut % (Auto) 68.6, Lymph % (Auto) 22.0, [place]oup % (Auto) 6.3, Eos % (Auto) 1.8, Baso % (Auto) 0.9, Absolute Neuts (auto) 3.9, Absolute Lymphs (auto) 1.25, Nucleated RBC % 0 11/28/20 09:36: Sodium 142, Potassium 3.4 L, Chloride 109 H, Carbon Dioxide 29.0, Anion Gap 4 L, BUN 17, Creatinine 0.91, Estim Creat Clear Calc 40.11, Est GFR (MDRD) Af Amer 76, Est GFR (MDRD) Non-Af 63, BUN/Creatinine Ratio 18.7, Glucose 101, Calcium 9.3 11/28/20 09:36: PT 11.8, INR 0.9, APTT 25.8 11/28/20 09:36: Urine Color Yellow, Urine Clarity Clear, Urine pH 7.0, Ur Specific Hooper 1.010, Urine Protein Negative, Urine Glucose (UA) Normal, Urine Ketones Negative, Urine Occult Blood 10 H, Urine Nitrite Negative, Urine Bilirubin Negative, Urine Urobilinogen Normal, Ur Leukocyte Esterase 25 H, Urine RBC 0-5 SEEN, Urine WBC 0-5 SEEN, Ur Squamous Epith Cells 0-5 SEEN, Urine Bacteria 0 SEEN, Urine Mucus 0 SEEN 11/28/20 12:50: Magnesium 2.4, Troponin I < 0.015 11/29/20 05:00: Sodium 142, Potassium 3.8, Chloride 110 H, Carbon Dioxide 30.0, Anion Gap 2 L, BUN 13, Creatinine 0.86, Estim Creat Clear Calc 40.58, Est GFR (MDRD) Af Amer 81, Est GFR (MDRD) Non-Af 67, BUN/Creatinine Ratio 15.0, Glucose 91, Calcium 8.9, Triglycerides 188, Cholesterol 174, LDL Cholesterol 97, VLDL Cholesterol 38, HDL Cholesterol 39 L, TSH 2.92 Current Medications Acetaminophen (Acetaminophen 325 Mg Tablet) 650 mg PO Q6H PRN PRN PRN Reason: Pain Score 1-10/Temp > 100.7 F Al Hydroxide/Mg Hydroxide (Mag Hydrox/Al Hydrox/Simeth 30 Ml Udc) 30 ml PO Q6H PRN PRN PRN Reason: Gastric Burning Albuterol/Ipratropium (Ipratropium/Albuterol Sulfate 3 Ml Ampul.Neb) 3 ml INHALATION Q4HWA.RT PRN PRN Reason: shortness of Breath Amlodipine Besylate (Amlodipine 10 Mg Tablet) 10 mg PO DAILY [facility] Last Admin: 11/29/20 09:20 Dose: Not Given Documented by: Benzonatate (Benzonatate 100 Mg Capsule) 200 mg PO TID PRN PRN Reason: COUGH Enoxaparin Sodium (Enoxaparin 40 Mg/0.4 Ml Syringe) 40 mg SC DAILY [facility] Last Admin: 11/29/20 09:20 Dose: Not Given Documented by: Furosemide (Furosemide 20 Mg Tablet) 20 mg PO DAILY [facility] Last Admin: 11/29/20 09:17 Dose: 20 mg Documented by: Hydralazine HCl (Hydralazine 20 Mg/Ml Vial) 5 mg IV Q30M PRN PRN Reason: to maintain BP goals Labetalol HCl (Labetalol (Prefilled) 20 Mg/4 Ml) 10 - 20 mg IV Q10M PRN PRN PRN Reason: to Maintain BP Goals Lisinopril (Lisinopril 10 Mg Tablet) 10 mg PO DAILY [facility] Morphine Sulfate (Morphine 2 Mg/Ml Syringe) 2 mg IV Q3H PRN PRN PRN Reason: Pain Score 6-10 Nitroglycerin (Nitroglycerin (Inpatient Use) 0.4 Mg Tab.Subl) 0.4 mg SL Q5M PRN PRN Reason: CARDIAC/CHEST PAIN Ondansetron HCl (Ondansetron 4 Mg/2 Ml Vial) 4 mg IV Q8H PRN PRN PRN Reason: NAUSEA/VOMITING Oxycodone HCl (Oxycodone 5 Mg Tablet) 5 mg PO Q4H PRN PRN PRN Reason: Pain Score 4-5 Pantoprazole Sodium (Pantoprazole Sodium 40 Mg Tablet) 40 mg PO DAILY [facility] Last Admin: 11/29/20 09:17 Dose: 40 mg Documented by: Discharge Activity: May Not Drive Weight Bearing Status: Weight bearing as tolerated Call your doctor if you observe: Fever of 101 or Higher, Numbness or Tingling, Change in Color, Inability to urinate, Inability to have a bowel movement, Using more than one pad per hour, Shortness of breath, Dizziness, Fainting spells, Swelling in the ankles, Chest pain, Prolonged hiccoughing, Increased palpitations (irregular heartbeat), Calf discomfort, Uncontrolled pain Home Medications: Medications to take at Discharge Esomeprazole Mag Trihydrate [Nexium] 40 mg PO DAILY 06/24/15 benzonatate 200 mg capsule 200 mg PO TID PRN 10/09/17 magnesium 250 mg tablet 125 mg PO QDAY 10/09/17 potassium gluconate 595 mg (99 mg) tablet 595 mg PO QDAY tab 10/09/17 aclidinium bromide 400 mcg/actuation breath activated powder inhaler 1 inh INHALATION Q12H #1 ea 11/30/19 Aclidinium [place] [Tudorza Pressair] 400 mcg IH BID 11/28/20 Amlodipine Besylate [Norvasc] 10 mg PO QDAY #0 11/29/20 Furosemide [Lasix] 20 mg PO DAILY PRN PRN #0 11/29/20 Lisinopril 10 mg PO DAILY #0 11/29/20 Meclizine HCl [Antivert] 12.5 mg PO 4X/DAY PRN PRN #30 tablet 11/29/20 levoFLOXacin tablet [Levaquin tablet] 500 mg PO DAILY #2 tablet 11/29/20 Following Prescriptions Were Given to Patient: Meclizine HCl [Antivert] 12.5 mg PO 4X/DAY PRN PRN #30 tablet PRN Reason: dizziness Transmission Status: Received by [facility]/pharmacy #[id number] levoFLOXacin tablet [Levaquin tablet] 500 mg PO DAILY #2 tablet Transmission Status: Received by [facility]/pharmacy #[id number] Primary Care Physician: Suyapa Jordan MD [Primary Care Provider] - Please follow up with your Primary Care Physician in: in 2 weeks Medical Necessity - Tobacco Use Smoking Status: Never smoker Tobacco Use: Non-smoker Meaningful Use Info Meaningful Use Diagnoses (Choose all that apply): None applicable OBSV E&M: 46655 Observation care discharge
[2020-11-29] MEDS: Lisinopril 10 MG Tablet PO (09:34)
--- NOTE | 2020-11-29 10:34 | CASEMGMT ---
Per therapy, pt does not need any further therapy at discharge. Pt has DME, if needed. SStaten RN CM
--- NOTE | 2020-11-29 14:08 | NURSING ---
message left regarding antibiotic RX being sent to [facility] pharmacy for UTI with call back number for questions.
== END 2020-11-29 09:32 | disposition home or self-care (01) ==
LOC: ED 11:34 → PCU 11:38
PROVIDERS: Admitting Provider Internal Medicine; Emergency Provider Emergency Medicine; PCP Internal Medicine; Visit Provider Internal Medicine
DX: R42 Dizziness and giddiness (principal); K29.00 Acute gastritis without bleeding; N30.00 Acute cystitis without hematuria; I10 Essential (primary) hypertension; J44.9 Chronic obstructive pulmonary disease, unspecified; Z79.899 Other long term (current) drug therapy; Z89.411 Acquired absence of right great toe; L40.9 Psoriasis, unspecified; B95.4 Other streptococcus as the cause of diseases classified elsewhere; R29.700 NIHSS score 0; R49.0 Dysphonia
CPT/HCPCS: 36415; 70450; 70551; 80048; 80061; 81001; 83735; 84443; 84484; 85025; 85610; 85730; 87077; 87086; 87088; 87186; 92522; 92610; 93005; 94762; 96361; 96365; 96366; 96372; 96375; 97162; 97166; 99218; 99251; 99285; J7030; J7120; G0378; G0463

== ENCOUNTER 2021-04-06 12:00 | Emergency (ER) | payer MEDICARE, OTHER, SELFPAY ==
[2020-11-28 12:24] VITALS: BMI 28.5
[2021-04-06 12:01] VITALS: BP 168/92; PULSE 75; RESP 18; TEMP 36.3; O2SAT 96; BMI 26.9
[2021-04-06 12:12] VITALS: BP 166/92; PULSE 76; RESP 21; O2SAT 96
--- NOTE | 2021-04-06 12:20 | EKG12_ITS ---
Test Reason : DIZZINESS Blood Pressure : / mmHG Vent. Rate : 071 BPM Atrial Rate : 071 BPM P-R Int : 150 ms QRS Dur : 088 ms QT Int : 408 ms P-R-T Axes : 045 005 034 degrees QTc Int : 443 ms Normal sinus rhythm Anterior infarct , age undetermined Abnormal ECG Confirmed by GONZÁLEZ HUDDLESTON, TAMERA ([id number]), associate entertainment editor KATTY WATTERS ([id number]) on 04/10/2021 9:10:06 AM Referred By: ANN/JONEL Confirmed By:TAMERA CLAUDIO MD
--- NOTE | 2021-04-06 12:35 | EX.ED.DYSGE1 ---
HPI History of Present Illness Chief Complaint: Dizziness Informant: patient Narrative Narrative: Patient is an 81-year-old female who presents to the emergency department for an episode of dizziness and high blood pressure. 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 Whenever she stood up she felt very dizzy. She told the other volunteers that she needed to sit down. They checked her blood pressure and it was in the 170 systolic. At that time they called the EMS crew to get her to the emergency department. Patient does have a history of vertigo. She is feeling better at this time but does not feel completely back to her baseline. She did have a slight left-sided headache. She denies any vision changes. No weakness or loss of sensation. No issues with word finding. She does not take anything for her symptoms. Patient does have a history of high blood pressure and did have a recent decrease in her amlodipine from 5 to 2.5 mg as she was dropping her blood pressures. She denies any chest pain or shortness of breath. No heart palpitations. No vomiting. [facility] Medical History (Updated 04/06/21 @ 13:[address] Kp Joiner, ) Acute gastritis Chronic cough Diverticulitis of colon HUMPHRIES (dyspnea on exertion) Esophagitis Hoarseness Overweight Psoriasis Stage 1 mild COPD by GOLD classification Urticaria Home Medications esomeprazole magnesium 40 mg PO DAILY 06/24/15 [History Last Taken Unknown] benzonatate 200 mg capsule 200 mg PO TID PRN 10/09/17 [History Last Taken Unknown] magnesium 250 mg tablet 125 mg PO QDAY 10/09/17 [History Last Taken Unknown] potassium gluconate 595 mg (99 mg) tablet 595 mg PO QDAY tab 10/09/17 [History Last Taken Unknown] aclidinium bromide 400 mcg/actuation breath activated powder inhaler 1 inh INHALATION Q12H #1 ea 11/30/19 [Rx Last Taken Unknown] aclidinium bromide 400 mcg IH BID 11/28/20 [History Last Taken Unknown] amlodipine 10 mg PO QDAY #0 11/29/20 [Rx Last Taken Unknown] furosemide 20 mg PO DAILY PRN PRN #0 11/29/20 [Rx Last Taken Unknown] levofloxacin 500 mg PO DAILY #2 tablet 11/29/20 [Rx Last Taken Unknown] lisinopril 10 mg PO DAILY #0 11/29/20 [Rx Last Taken Unknown] meclizine 12.5 mg PO 4X/DAY PRN PRN #30 tablet 11/29/20 [Rx Last Taken Unknown] meclizine 25 mg PO 4X/DAY PRN PRN #20 tab 04/06/21 [Rx Last Taken Unknown] Allergy/AdvReac Type Severity Reaction Status Date / Time Latex, Natural Rubber Allergy Mild Verified 04/06/21 12:01 simvastatin [From Zocor] Allergy Mild Verified 04/06/21 12:01 guaifenesin [From Robitussin] Allergy Unknown Verified 04/06/21 12:01 Penicillins Allergy Unknown Verified 04/06/21 12:01 Sulfa (Sulfonamide Allergy Unknown Verified 04/06/21 12:01 Antibiotics) Family History Mother Colon cancer Father Colon cancer Sister Breast cancer Diabetes CVA (cerebral vascular accident) Cervical cancer Brother Heart disease Daughter COPD (chronic obstructive pulmonary disease) Son Diabetes Surgical History History of amputation of right great toe History of appendectomy History of cataract extraction history of hand reconstruction history of left arm surgery Social History Smoking Status: Never smoker ROS ROS ED Constitutional Constitutional ED: Denies chills or fever(s) Eyes Eyes: Denies change in vision ENT ENT ED: Denies epistaxis or rhinorrhea Cardiovascular Cardiovascular: Denies chest pain or palpitations Respiratory/Chest Respiratory/Chest: Denies cough, dyspnea or dyspnea on exertion Gastrointestinal Gastrointestinal: Denies abdominal pain, diarrhea, nausea or vomiting Genitourinary Genitourinary ED: Denies dysuria, hematuria or urinary frequency Musculoskeletal Musculoskeletal: Denies back pain or neck pain Integumentary Denies rash Neurologic Neurologic: Reports headache(s) and other Details: Dizziness ; Denies weakness EXAM Physical Exam Const Vital Signs: 04/06/21 12:01 04/06/21 12:12 04/06/21 13:54 Temperature 97.4 F L Temperature Source Temporal Pulse Rate 75 76 78 Respiratory Rate 18 21 H 18 Blood Pressure 168/92 H 166/92 H 160/97 H Blood Pressure Mean 117 116 Pulse Ox 96 96 96 Oxygen Delivery Method Room Air Room Air Positive well nourished and well developed General Appearance ED: well developed and NAD HEENT Reports normocephalic and head/scalp atraumatic Eyes PERRL and EOMs intact bilaterally Neck supple Resp normal respiratory effort and clear to auscultation bilaterally Auscultation: Negative for rales, rhonchi or wheezes Cardio regular rate, regular rhythm and no murmurs GI normal to inspection, nondistended, normoactive bowel sounds and non-tender Palpation: soft; Negative for guarding or rebound tenderness present Back/Spine no CVA tenderness Extremity normal to inspection General Extremety ED: Negative for edema or tenderness General Extremity: Negative for edema Neuro oriented x3, CN's II-XII intact bilaterally and no sensory deficits noted Neuro Narrative: NIH score of 0. Sensorium / Orientation: alert Motor Exam: strength 5/5 throughout Psych mental status grossly normal Skin no rashes or lesions noted MDM MDM MDM Narrative Medical decision making narrative: Patient presents [facility] department for an episode of dizziness when moving from bent over to standing position lifting. She is feeling better at this time. On arrival to the ED she does have high blood pressure but is starting to trend downward. She is a benign physical exam. She states that she is embarrassed to be here and she thinks that they overreacted at the [facility]. EKG was performed per protocol. This time we will trial a dose of meclizine. This time I do not feel any imaging or lab work is necessary. On reexamination patient resting comfortably. She is feeling better at this time. This time I believe she is stable for discharge. We will write a prescription for meclizine for home treatment to take as needed. She has had this before. She is to follow-up with her PCP. Return precautions are reviewed with her. All questions were answered. EKG Initial EKG: Attestation: I personally reviewed and interpreted this EKG as follows: (Rate of 71 bpm and normal sinus rhythm. Normal intervals. Normal axis. No significant ST elevations or depressions. No T wave abnormalities.) Discharge Plan Triage Chief Complaint: Dizziness Other Complaint: Hypertension ED Provider: Kp Joiner Dx/Rx/DC Orders Clinical Impression: Dizziness Instructions: ED Dizziness, Uncertain Cause Prescriptions: New meclizine 25 mg tablet 25 mg PO 4X/DAY PRN PRN (Reason: Dizziness) Qty: 20 RF: 0 No Action benzonatate 200 mg capsule 200 mg PO TID PRN (Reason: Cough) RF: 0 magnesium 250 mg tablet 125 mg PO QDAY RF: 0 potassium gluconate 595 mg (99 mg) tablet 595 mg PO QDAY RF: 0 Tudorza Pressair 400 mcg/actuation aerosol powdr breath activated 1 inh INHALATION Q12H Qty: 1 RF: 11 esomeprazole magnesium 40 MG capsule 40 mg PO DAILY RF: 0 aclidinium bromide 400 MCG aerosol powdr breath activated 400 mcg IH BID RF: 0 meclizine 12.5 MG tablet 12.5 mg PO 4X/DAY PRN PRN (Reason: dizziness) Qty: 30 RF: 0 amlodipine 10 mg tablet 10 mg PO QDAY Qty: 0 RF: 0 lisinopril 10 MG tablet 10 mg PO DAILY Qty: 0 RF: 0 furosemide 20 mg tablet 20 mg PO DAILY PRN PRN (Reason: leg swelling) Qty: 0 RF: 0 levofloxacin 500 MG tablet 500 mg PO DAILY Qty: 2 RF: 0 Primary Care Provider: Suyapa Jordan Referrals: Suyapa Jordan MD [Primary Care Provider] - 3-5 Days Disposition Disposition: Home, Self Care Discharge Date/Time: 04/06/21 13:55
[2021-04-06] MEDS: Meclizine HCl 25 MG Tablet PO (12:37)
[2021-04-06 13:54] VITALS: BP 160/97; PULSE 78; RESP 18; O2SAT 96
== END 2021-04-06 13:55 | disposition home or self-care (01) ==
PROVIDERS: Emergency Provider Emergency Medicine; PCP Internal Medicine
DX: R42 Dizziness and giddiness (principal); J44.9 Chronic obstructive pulmonary disease, unspecified
CPT/HCPCS: 93005; 99283

== ENCOUNTER 2021-06-12 12:27 | Outpatient (CLI) | payer MEDICARE, OTHER, SELFPAY ==
[2021-06-12 12:44] VITALS: BP 142/63; PULSE 75; RESP 16; TEMP 36.6; O2SAT 97; BMI 26.9
[2021-06-12] MEDS: 0.9% Saline Lock 10 ML Syringe IV (12:51)
[2021-06-12 13:38] VITALS: BP 132/62; PULSE 69; RESP 16; TEMP 36.6; O2SAT 95
[2021-06-12 14:32] VITALS: BP 142/73; PULSE 71; RESP 16; TEMP 36.9; O2SAT 98
== END 2021-06-12 14:38 | disposition home or self-care (01) ==
LOC: MS3OUT 12:27 → MS3 12:28
PROVIDERS: PCP Internal Medicine; Referring Provider Nurse Practitioner Adult Health; Visit Provider Nurse Practitioner Adult Health
DX: Z23 Encounter for immunization (principal); U07.1 COVID-19
CPT/HCPCS: J7050; M0243; A4216; Q0244

== ENCOUNTER 2021-11-22 13:04 | Emergency (ER) | payer MEDICARE, OTHER, SELFPAY ==
[2021-11-22 13:05] VITALS: BP 191/112; PULSE 112; RESP 16; TEMP 36.4; O2SAT 97; BMI 27.0
--- NOTE | 2021-11-22 13:17 | EKG12_ITS ---
Test Reason : Blood Pressure : / mmHG Vent. Rate : 110 BPM Atrial Rate : 110 BPM P-R Int : 162 ms QRS Dur : 088 ms QT Int : 356 ms P-R-T Axes : 002 -40 -10 degrees QTc Int : 481 ms Sinus tachycardia Left axis deviation Inferior infarct , age undetermined Anterolateral infarct , age undetermined Abnormal ECG Confirmed by GONZÁLEZ HUDDLESTON, TAMERA ([id number]), newspaper managing editor KATTY WATTERS ([id number]) on 11/23/2021 2:47:32 PM Referred By: PRABHA Confirmed By:TAMERA CLAUDIO MD
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
[2021-11-22] MEDS: Mag Hydrox/Al Hydrox/Simeth 30 ML UDC PO (13:53)
[2021-11-22] MEDS: Ondansetron 4 MG/2 ML Vial IV (13:53)
[2021-11-22 13:54] LABS: Absolute Lymphocyte Count 1.44 X10^3/uL (0.83-4.51); Absolute Neutrophil Count 8.8 X10^3/uL (2.0-7.7); Basophil# 0.04 X10^3/uL; Basophil% 0.4 % (0-1); Eosinophil# 0.04 X10^3/uL; Eosinophils% 0.4 % (0-5); Hematocrit 45.6 % (37-47); Hemoglobin 15.8 g/dL (12.0-15.0); Lymphocyte # 1.44 X10^3/ul (0.83-4.51); Lymphocyte % 12.7 % (19-41); Mean Corp Hgb Conc 34.6 g/dL (32-36); Mean Corpuscular Hgb 30.2 pg (27.0-32.0); Mean Platelet Vol. 9.6 fl (6.2-12.0); Monocyte# 0.95 X10^3/uL; Monocyte% 8.4 % (0-10); NRBC Flagged by Analyzer 0 % (0-5); Neutrophil # 8.82 X10^3/uL (2.7-7.7); Neutrophil % 77.9 % (47-70); Platelet Count 278 K/mm3 (150-450); RBC Distribution Width CV 12.1 % (11.6-14.6); RBC Distribution Width SD 38.6 fl (35.1-43.9); Red Blood Count 5.24 M/mm3 (4.2-5.4); White Blood Count 11.3 K/mm3 (4.4-11.0)
--- NOTE | 2021-11-22 14:00 | RAD_ITS ---
STUDY: X-RAY CHEST REASON FOR EXAM: Female, 81 years old. 2 day history of epigastric pain. TECHNIQUE: Single AP portable view of the chest. COMPARISON: Comparison is made with prior study 03/29/2014. FINDINGS: EKG electrodes are seen. Hyperinflation. Mild increased markings at the lung bases slightly more prominent on the left side suggestive of a scarring. There is no demonstrated pleural abnormality. Normal size heart. Normal mediastinum and hernesto. Normal visualized pulmonary arteries. There is atherosclerotic tortuosity of the aortic arch and descending thoracic aorta. There are degenerative changes of the visualized thoracic spine. Multiple healed right rib fractures. Hiatal hernia. RAD/Chest 1 View (Portable) IMPRESSION: Hyperinflation. Mild increased markings at the lung bases suggestive of scarring. Electronically Signed: Jay Louie MD at 14:15 EDT ,
[2021-11-22 14:17] LABS: AST(SGOT) 16 U/L (15-37); Alanine Aminotransfer ALT/SGPT 23 U/L (13-56); Albumin, Serum 3.9 g/dL (3.2-5.0); Alkaline Phosphatase 103 U/L (45-117); Anion Gap 5 (5-15); BUN 19 mg/dL (7-18); BUN/Creat Ratio 18.8 RATIO (10-20); Calcium,Total 9.4 mg/dL (8.5-10.1); Chloride 106 mmol/L (98-107); Creatinine, Serum 1.01 mg/dL (0.55-1.02); EST Glomerular Filtration Rate 56 mL/min (>60); Est Glom Filt Rate - Afr Amer 67 mL/min (>60); Estimated Creatinine Clearance 33.96 ml/min; Globulin 4.1 g/dL (2.2-4.2); Glucose 117 mg/dL (74-106); Lipase 129 U/L (73-393); Potassium 3.8 mmol/L (3.5-5.1); Sodium Level 137 mmol/L (136-145); Troponin-I HS 8 pg/mL (3.0-54.0)
[2021-11-22] MEDS: Morphine 4 MG/ML Syringe IV (14:52)
[2021-11-22 15:37] VITALS: BP 147/82; PULSE 83; RESP 22; O2SAT 94
--- NOTE | 2021-11-22 15:51 | CT_ITS ---
STUDY: CT ABDOMEN AND PELVIS WITH CONTRAST REASON FOR EXAM: Female, 81 years old. Epigastric pain and heartburn RADIATION DOSAGE (If Supplied By Facility): CTDIvol = ( 12.80 ) mGy, DLP = ( 759.23 ) mGycm TECHNIQUE: Transaxial images were obtained from the dome of the diaphragm to the symphysis pubis without oral contrast. IV 100mL [id number]-300 was administered. Sagittal and coronal images were reconstructed. Individualized dose optimization techniques were used for this CT. COMPARISON: None. FINDINGS: Chronic interstitial changes noted in both lung bases with interstitial edema, small bilateral pleural effusions and bibasilar atelectasis. There is cardiomegaly. Normal liver. Normal gallbladder and extrahepatic biliary system. Normal spleen. Normal pancreas. Normal bilateral adrenal glands. No obstructive uropathy, or suspicious solid renal lesion, there are bilateral cortical and parapelvic renal cysts. There is a large hiatal hernia composed mostly of the fundus of the stomach. Nondistended fluid-filled small bowel loops are noted consistent with ileus. Colonic diverticulosis is noted particular in the sigmoid colon, no CT evidence of acute diverticulitis. However, because of the extensive diverticular disease in the sigmoid colon and underlying lesion cannot be excluded. There is non-visualization of the appendix. Normal abdominal aorta. Normal inferior vena cava. Normal retroperitoneum. Normal urinary bladder. Uterus is present, the endometrium cannot be accurately evaluated with CT. No suspicious cystic mass or free fluid in the pelvis. There is an umbilical hernia containing fat. There are diffuse degenerative changes of the visualized lumbar spine, and pelvis. There is a grade 1 spondylolisthesis at L4-5 CT/Abdomen/Pelvis W IV Cont ONLY IMPRESSION: Chronic interstitial changes in both lung bases with interstitial edema, small pleural effusions and bibasilar atelectasis. Cardiomegaly Bilateral cortical and parapelvic renal cysts, no specific follow-up needed Colonic diverticulosis, particularly in the sigmoid colon without diverticulitis. Underlying lesion of the sigmoid cannot be excluded due to the extensive diverticular disease in the sigmoid. Uterus is present, the endometrium cannot be accurately evaluated with CT. Degenerative bony changes Electronically Signed: Ja Jules MD at 16:43 EDT ,
[2021-11-22 17:14] VITALS: BP 120/78
== END 2021-11-22 17:21 | disposition home or self-care (01) ==
PROVIDERS: Emergency Provider Emergency Medicine; PCP Internal Medicine; Visit Provider Emergency Medicine
DX: K29.00 Acute gastritis without bleeding (principal); J44.9 Chronic obstructive pulmonary disease, unspecified; K44.9 Diaphragmatic hernia without obstruction or gangrene; K21.9 Gastro-esophageal reflux disease without esophagitis; N28.9 Disorder of kidney and ureter, unspecified; Z87.19 Personal history of other diseases of the digestive system; L40.9 Psoriasis, unspecified; Z79.899 Other long term (current) drug therapy; Z79.1 Long term (current) use of non-steroidal anti-inflammatories (NSAID)
CPT/HCPCS: 71045; 74177; 80053; 83690; 84484; 85025; 93005; 96365; 96366; 96375; 99285; J7050; Q9967; A4216; J2405

== ENCOUNTER → 2022-03-28 | Outpatient (CLI) | payer MEDICARE, OTHER, SELFPAY ==
--- NOTE | 2022-03-28 09:15 | RAD_ITS ---
INDICATION: severe hiatal hernia, eval for volvulus EXAMINATION/TECHNIQUE: Fluoroscopic evaluation of the upper gastrointestinal tract was performed in multiple projections, supine, erect and prone positions. Patient received effervescent granules in addition to Thin and thick barium orally. Total Fluoroscopic Time: 2:40 minutes/seconds. Number of Fluoroscopic Images: 38 COMPARISON: 11/22/2021. FINDINGS: Unremarkable transit of the contrast bolus through the oral cavity into the esophagus, no evidence of laryngeal aspiration or penetration. Irregular contractility of the esophagus is noted. Unremarkable transit of the contrast bolus the esophagus, no evidence of esophageal diverticula or strictures, no evidence of a SCHATZKI ring was seen. There is an irregular orientation of the gastroesophageal junction visualized due to a Large hiatus hernia but no evidence of delay of transit through the gastroesophageal junction, no evidence of stricture or narrowing. Severe gastroesophageal reflux is visualized. No evidence of volvulus of the stomach is seen. The stomach demonstrates mild prominence of the gastric folds, no evidence of mucosal irregularities, no evidence of ulcerations or intraluminal masses is seen. The gastric outlet is unremarkable, unremarkable duodenal sweep visualized. Unremarkable contrast opacification of the small bowel loops, no evidence of small bowel distention or obstruction. Unremarkable opacification of the cecum and proximal ascending colon. RAD/Upper GI/w Small Bowel IMPRESSION: Irregular contractility of the esophagus. Large hiatus hernia with severe gastroesophageal reflux seen. No evidence of gastric volvulus. Electronically Signed: Campbell Paris MD at 12:46 EDT ,
== END | disposition home or self-care (01) ==
LOC: RAD 09:12
PROVIDERS: PCP Internal Medicine; Referring Provider Nurse Practitioner Adult Health; Visit Provider Nurse Practitioner Adult Health
DX: K44.9 Diaphragmatic hernia without obstruction or gangrene (principal); K21.9 Gastro-esophageal reflux disease without esophagitis
CPT/HCPCS: 74246; 74248

== ENCOUNTER → 2022-04-17 | Outpatient (CLI) | payer MEDICARE, OTHER, SELFPAY ==
--- NOTE | 2022-04-17 11:28 | NM_ITS ---
CLINICAL: 82-year-old female with history of hiatal hernia, epigastric pain. SEMI-SOLID PHASE 99m Tc SULFUR COLLOID GASTRIC EMPTYING STUDY COMPARISON: Upper gastrointestinal series report 03/28/2022 FINDINGS: The patient was administered 1.0 mCi of 99m Tc sulfur colloid mixed with oatmeal and consumed per os. Image acquisitions in the anterior and posterior projections were obtained for 60 minutes. There is prompt visualization of the stomach. There is no gastroesophageal reflux identified. The T ? emptying was calculated to be 26.95 minutes, (Normal: 12-56 minutes). NM/Gastric Emptying Study IMPRESSION: 1. NORMAL 99m Tc sulfur colloid semi-solid phase (oatmeal) gastric emptying imaging examination. A. There is normal and preserved semi-solid phase gastric emptying compared to normal controls with maintained first order kinetics throughout all components of the examination. (Luis et al, J Nucl Med Tech 38: 186, 2010). Electronically Signed: López Ruth, at 13:50 EDT ,
== END | disposition home or self-care (01) ==
LOC: NM 11:27
PROVIDERS: PCP Internal Medicine; Referring Provider Nurse Practitioner Adult Health; Visit Provider Nurse Practitioner Adult Health
DX: K21.00 Gastro-esophageal reflux disease with esophagitis, without bleeding (principal); K44.9 Diaphragmatic hernia without obstruction or gangrene
CPT/HCPCS: 78264; A9541

== ENCOUNTER 2023-11-18 18:32 | Emergency (ER) | payer MEDICARE, OTHER, SELFPAY ==
[2023-11-18 18:33] VITALS: BP 167/81; PULSE 85; RESP 18; TEMP 36.2; O2SAT 97
--- NOTE | 2023-11-18 18:58 | ED.VIS.GI ---
HPI HPI - GI History of Present Illness Chief Complaint: Abd Pain Informant: patient Abdominal Pain/Flank Pain Onset: Hours (2) Context: Gradual Onset Timing: Continuous Quality: Sharp Location: - (Periumbilical) Worsened by: Car ride Relieved by: Nothing Nausea/Vomiting/Emesis GI Symptom: Positive for Nausea; Negative for Vomiting Diarrhea/Melena/Hematochezia GI Symptom: Negative for Diarrhea, Melena or Hematochezia Associated Symptoms Associated Symptoms: Positive for Frequency; Negative for Dysuria or Hematuria Narrative Narrative: Patient presents with abdominal pain that began approximately 2 hours prior to arrival. Patient states the pain came on gradually. Patient describes the pain as sharp. Patient states pain is over the periumbilical area. Patient states she knows she has a umbilical hernia. Patient states she normally tries to keep it reduced. Patient states she was unable to reduce it tonight. Patient states that her pain is worse with hitting a bump in the road. Patient admits to some nausea but denies any vomiting. Patient denies any diarrhea, melena, or hematochezia. Patient admits to some urinary frequency but denies any dysuria or hematuria. [facility] Medical History (Updated 11/18/23 @ 21:[address] Remy Archer, DO) Acute gastritis Chronic cough Diverticulitis of colon HUMPHRIES (dyspnea on exertion) Esophagitis Hoarseness Overweight Psoriasis Stage 1 mild COPD by GOLD classification Urticaria Home Medications magnesium 250 mg tablet 125 mg PO QDAY supplement 10/09/17 [History Last Taken Unknown] potassium gluconate 595 mg (99 mg) tablet 595 mg PO QDAY supplement 10/09/17 [History Last Taken Unknown] aclidinium bromide 400 mcg/actuation breath activated powder inhaler 400 mcg IH BID breathing 11/28/20 [History Last Taken Unknown] amlodipine 10 mg tablet 10 mg PO QDAY ##0 11/29/20 [Rx Last Taken Unknown] furosemide 20 mg tablet 20 mg PO DAILY PRN PRN leg swelling ##0 11/29/20 [Rx Last Taken Unknown] lisinopril 10 mg tablet 10 mg PO DAILY ##0 11/29/20 [Rx Last Taken Unknown] meclizine 25 mg tablet 25 mg PO 4X/DAY PRN PRN Dizziness #20 tabs 04/06/21 [Rx Last Taken Unknown] sucralfate 1 gram tablet 1 g PO QAC #90 tabs 06/19/22 [Rx Last Taken Unknown] esomeprazole magnesium 40 mg capsule,delayed release 40 mg PO QAM #90 caps 07/08/23 [Rx Last Taken Unknown] ciprofloxacin HCl 500 mg tablet 500 mg PO BID #20 TABLETS 11/18/23 [Rx Last Taken Unknown] metronidazole 500 mg tablet 500 mg PO Q6H #40 tabs 11/18/23 [Rx Last Taken Unknown] Allergy/AdvReac Type Severity Reaction Status Date / Time Latex, Natural Rubber Allergy Mild Verified 11/18/23 18:34 simvastatin [From Zocor] Allergy Mild Verified 11/18/23 18:34 guaifenesin [From Robitussin] Allergy Unknown Verified 11/18/23 18:34 Penicillins Allergy Anaphylaxis Verified 11/18/23 18:34 Sulfa (Sulfonamide Allergy Unknown Verified 11/18/23 18:34 Antibiotics) Family History (Reviewed 10/29/22 @ 14:04 by Ale Gill [employer] SALESPERSON, [employer] SALESPERSON-C) Mother Colon cancer Father Colon cancer Sister Breast cancer Diabetes CVA (cerebral vascular accident) Cervical cancer Brother Heart disease Daughter COPD (chronic obstructive pulmonary disease) Son Diabetes Surgical History History of amputation of right great toe History of appendectomy History of cataract extraction history of hand reconstruction history of left arm surgery Social History Smoking Status: Never smoker ROS ROS ED Constitutional Constitutional ED: Denies chills or fever(s) Eyes Eyes: Denies blurry vision or change in vision ENT ENT ED: Denies rhinorrhea or sore throat Cardiovascular Cardiovascular: Denies chest pain or palpitations Respiratory/Chest Respiratory/Chest: Denies cough or dyspnea Gastrointestinal Gastrointestinal: Reports abdominal pain and nausea; Denies vomiting Genitourinary Genitourinary ED: Reports urinary frequency; Denies dysuria or hematuria Musculoskeletal Musculoskeletal: Reports back pain; Denies neck pain Integumentary Denies abscess or rash Neurologic Neurologic: Denies headache(s) or weakness Allergic/Immunologic Allergic/Immunologic ED: Denies mouth swelling or urticaria EXAM Physical Exam Const Vital Signs: 11/18/23 18:33 11/18/23 20:32 Temperature 97.2 F L Temperature Source Temporal Pulse Rate 85 78 Respiratory Rate 18 18 Blood Pressure 167/81 H 151/75 H Blood Pressure Mean 109 100 Pulse Ox 97 96 Oxygen Delivery Method Room Air Room Air Positive well nourished and well developed General Appearance ED: well developed and NAD HEENT Reports moist mucous membranes Neck supple and no JVD Resp normal respiratory effort and clear to auscultation bilaterally Cardio regular rate and regular rhythm GI non-distended Palpation: soft, tender periumbilical and hernia umbilical Neuro CN's II-XII intact bilaterally, moves all extremities and no sensory deficits noted Sensorium / Orientation: alert Motor Exam: strength 5/5 throughout Psych mental status grossly normal MDM MDM MDM Narrative Medical decision making narrative: Differential diagnosis includes incarcerated umbilical hernia, bowel obstruction, perforation, gastroenteritis, and urinary tract infection. CBC will be obtained to assess for leukocytosis and anemia. Basic metabolic profile will be obtained to assess for electrolyte abnormality and renal function. Urinalysis will be obtained to assess for urinary tract infection and hematuria. CT scan of the abdomen and pelvis will be obtained to assess for incarcerated hernia, bowel obstruction, and perforation. Lab Data Attestation: I reviewed the patient's lab results. Lab results narrative: CBC was reviewed. There is a mild leukocytosis of 14.7. Hemoglobin was 15.1. The remainder is within normal limits. Basic metabolic profile was reviewed. BUN was slightly elevated at 22. The remainder was essentially within normal limits. Urinalysis was reviewed. There is no evidence of urinary tract infection or hematuria. Labs: Laboratory Results - last 24 hr 11/18/23 11/18/23 18:45 21:40 WBC 14.7 H RBC 5.15 Hgb 15.1 H Hct 45.1 MCV 87.6 MCH 29.3 MCHC 33.5 RDW Std Deviation 40.0 RDW Coeff of Catrina 12.5 Plt Count 254 MPV 10.0 Immature Gran % (Auto) 0.500 Neut % (Auto) 87.2 H Lymph % (Auto) 6.7 L Mineral % (Auto) 5.0 Eos % (Auto) 0.3 Baso % (Auto) 0.3 Absolute Neuts (auto) 12.8 H Absolute Lymphs (auto) 0.98 Nucleated RBC % 0 Sodium 142 Potassium 3.7 Chloride 109 H Carbon Dioxide 26.0 Anion Gap 7 BUN 22 H Creatinine 0.91 Estim Creat Clear Calc 41.69 Est GFR (MDRD) Af Amer 76 Est GFR (MDRD) Non-Af 63 BUN/Creatinine Ratio 24.2 H Glucose 111 H Calcium 9.6 Urine Color Yellow Urine Clarity Clear Urine pH 6.5 Ur Specific [place] 1.010 Urine Protein Negative Urine Glucose (UA) Normal Urine Ketones 15 H Urine Occult Blood 10 H Urine Nitrite Negative Urine Bilirubin Negative Urine Urobilinogen Normal Ur Leukocyte Esterase Negative Radiography Diagnostic Testing: Clinical Impression(s) from Imaging Studies Abdomen/Pelvis CT 11/18/23 19:03 IMPRESSION: 1. Small bowel diverticula with inflammation in the left hemipelvis which may represent small bowel diverticulitis. There is no abscess or perforation identified. 2. Cortical and peripelvic cysts within the kidneys. 3. Large hiatal hernia. Electronically Signed: Chinmay Bowman MD at 21:28 EDT Reading Location ID and State: [facility] / [place] Tel , Service support , CT scan of the abdomen and pelvis was obtained. There are small bowel diverticula with inflammation in the left hemipelvis which may represent small bowel diverticulitis. There is no abscess or perforation noted. This was interpreted by the radiologist and was also independently reviewed by myself. Treatment and Re-Evaluation :: Patient was given IV fluids, morphine, and Zofran. Patient was laying flat. The umbilical hernia was able to be reduced prior to the patient going to CT scan. Patient was feeling better on reevaluation. Patient was advised of her findings. Patient was given a dose of Cipro and Flagyl here. Patient was given prescription for Cipro and Flagyl. Patient was instructed to follow-up with her primary care physician in 5 to 7 days. Patient understood and was agreeable with the plan. All questions were answered. Discharge Plan Triage Chief Complaint: Abd Pain ED Provider: Remy Archer Dx/Rx/DC Orders Clinical Impression: Diverticulitis small intestine w/o perforation or abscess w/o bleeding, Stage 1 mild COPD by GOLD classification Instructions: ED Diverticulitis Prescriptions: New metronidazole [metronidazole] 500 mg tablet 500 mg PO Q6H Qty: 40 0RF ciprofloxacin HCl [ciprofloxacin HCl] 500 mg tablet 500 mg PO BID Qty: 20 0RF No Action magnesium 250 mg tablet 125 mg PO QDAY potassium gluconate 595 mg (99 mg) tablet 595 mg PO QDAY aclidinium bromide 400 MCG aerosol powdr breath activated 400 mcg IH BID amlodipine 10 mg tablet 10 mg PO QDAY Qty: 0 0RF Rx Instructions: Hold for systolic blood pressure less than 130 mmHg lisinopril 10 MG tablet 10 mg PO DAILY Qty: 0 0RF Rx Instructions: Hold for SBP less than 130 mmHg furosemide 20 mg tablet 20 mg PO DAILY PRN PRN (Reason: leg swelling) Qty: 0 0RF meclizine 25 mg tablet 25 mg PO 4X/DAY PRN PRN (Reason: Dizziness) Qty: 20 0RF sucralfate 1 gram tablet 1 g PO QAC Qty: 90 1RF esomeprazole magnesium 40 mg capsule,delayed release(DR/EC) 40 mg PO QAM Qty: 90 1RF Primary Care Provider: Suyapa Jordan Referrals: Suyapa Jordan MD [Primary Care Provider] - 5-7 Days Disposition Disposition: Home, Self Care
--- NOTE | 2023-11-18 19:03 | CT_ITS ---
EXAM: CT ABDOMEN AND PELVIS WITH INTRAVENOUS CONTRAST CLINICAL INDICATION: Abdominal pain TECHNIQUE: Helically acquired images were obtained of the abdomen and pelvis with intravenous contrast. This CT exam was performed using one or more of the following dose reduction techniques: automated exposure control, adjustment of the mA and/or kV according to patient size, and/or use of iterative reconstruction technique. CONTRAST: Oral and amp; IV Gastrografin and amp; 100mL Isovue-300 COMPARISON: 11/22/2021 FINDINGS: LOWER THORAX: There is a large hiatal hernia. Lung bases are clear. No cardiomegaly. No significant pericardial effusion. ABDOMEN: LIVER: Unremarkable. Homogeneous. No focal mass. GALLBLADDER AND BILE DUCTS: Unremarkable. No calcified gallstones. No gallbladder distention or wall edema. No intra- or extrahepatic biliary ductal dilation. PANCREAS: Unremarkable. No focal cystic or solid mass. SPLEEN: Unremarkable. Normal size without focal cystic or solid mass. ADRENALS: Unremarkable. No nodules. KIDNEYS AND URETERS: There are large peripelvic cysts within both kidneys which are stable. There are also cortical cysts on both kidneys which are stable. No follow-up imaging is necessary. STOMACH AND BOWEL: There is a diverticulum with inflammation seen off a loop of small bowel in the pelvis which may represent small bowel diverticulitis. There is no abscess or perforation. There are diverticula of the sigmoid colon with no inflammation. No stomach or bowel distention. PELVIS: APPENDIX: No evidence of acute appendicitis. BLADDER: Unremarkable. REPRODUCTIVE: Unremarkable as visualized. No mass. ABDOMEN and PELVIS: INTRAPERITONEAL SPACE: Unremarkable. No ascites or other fluid collection. No free air. BONES/JOINTS: Unremarkable. No suspicious lytic or blastic abnormality. SOFT TISSUES: There is an umbilical hernia which contains mesenteric fat. VASCULATURE: Unremarkable. Abdominal aorta is non-dilated. LYMPH NODES: Unremarkable. No enlarged lymph nodes. CT/Abdomen/Pelvis WITH Contrast IMPRESSION: 1. Small bowel diverticula with inflammation in the left hemipelvis which may represent small bowel diverticulitis. There is no abscess or perforation identified. 2. Cortical and peripelvic cysts within the kidneys. 3. Large hiatal hernia. Electronically Signed: Chinmay Bowman MD at 21:28 EDT ,
[2023-11-18] MEDS: Ondansetron 4 MG/2 ML Vial IV (19:12)
[2023-11-18] MEDS: 0.9% Normal Saline (1000mL) 1,000 ML 1000 ML IV (19:12)
[2023-11-18] MEDS: Morphine 4 MG/ML Syringe IV (19:13)
[2023-11-18 19:17] VITALS: BMI 27.5
[2023-11-18 19:17] LABS: Absolute Lymphocyte Count 0.98 X10^3/uL (0.83-4.51); Absolute Neutrophil Count 12.8 X10^3/uL (2.0-7.7); Basophil# 0.04 X10^3/uL; Basophil% 0.3 % (0-1); Eosinophil# 0.04 X10^3/uL; Eosinophils% 0.3 % (0-5); Hematocrit 45.1 % (37-47); Hemoglobin 15.1 g/dL (12.0-15.0); Lymphocyte # 0.98 X10^3/ul (0.83-4.51); Lymphocyte % 6.7 % (19-41); Mean Corp Hgb Conc 33.5 g/dL (32-36); Mean Corpuscular Hgb 29.3 pg (27.0-32.0); Mean Corpuscular Volume 87.6 fL (81-99); Monocyte# 0.74 X10^3/uL; NRBC Flagged by Analyzer 0 % (0-5); Neutrophil % 87.2 % (47-70); Platelet Count 254 K/mm3 (150-450); RBC Distribution Width CV 12.5 % (11.6-14.6); Red Blood Count 5.15 M/mm3 (4.2-5.4); White Blood Count 14.7 K/mm3 (4.4-11.0)
[2023-11-18 19:37] LABS: Anion Gap 7 (5-15); BUN 22 mg/dL (7-18); BUN/Creat Ratio 24.2 RATIO (10-20); Calcium,Total 9.6 mg/dL (8.5-10.1); Chloride 109 mmol/L (98-107); Creatinine, Serum 0.91 mg/dL (0.55-1.02); EST Glomerular Filtration Rate 63 mL/min (>60); Est Glom Filt Rate - Afr Amer 76 mL/min (>60); Estimated Creatinine Clearance 41.69 ml/min; Glucose 111 mg/dL (74-106); Potassium 3.7 mmol/L (3.5-5.1); Sodium Level 142 mmol/L (136-145)
[2023-11-18 20:32] VITALS: BP 151/75; PULSE 78; RESP 18; O2SAT 96
[2023-11-18 21:47] LABS: Bacteria 0 SEEN /hpf (None Seen); Mucous, Urine 0 SEEN /hpf (<or=2+); Squamous Epithelial Cells - UA 0 SEEN /hpf (5-10); White Blood Cells 0 SEEN /hpf (0-5)
[2023-11-18 21:48] LABS: Color, Urine Yellow (Yellow); Glucose, Dipstick Normal (Normal); Ketone-Dipstick 15 mg/dl (Negative); Leukocyte Esterase-Dipstick Negative /ul (Negative); Nitrite-Dipstick Negative (Negative); Occult Blood-Urine 10 /ul (Negative); Protein-Dipstick Negative (Negative); Urine Bilirubin Dipstick Negative (Negative); Urine Clarity Clear (Clear); Urine Urobilinogen Normal (Normal); Urine pH 6.5 (5.0 - 8.0)
[2023-11-18 22:01] LABS: Red Blood Cells-Urine 0-5 SEEN /hpf (0-5)
[2023-11-18] MEDS: metroNIDAZOLE 500 MG Tablet PO (22:04)
[2023-11-18] MEDS: Ciprofloxacin 500 MG Tablet PO (22:04)
[2023-11-18 22:05] VITALS: BP 153/66; PULSE 78; PULSE 81; RESP 18; TEMP 37.1; O2SAT 93
== END 2023-11-18 22:08 | disposition home or self-care (01) ==
PROVIDERS: Emergency Provider Emergency Medicine; PCP Internal Medicine; Visit Provider Emergency Medicine
DX: K57.12 Diverticulitis of small intestine without perforation or abscess without bleeding (principal); J44.9 Chronic obstructive pulmonary disease, unspecified
CPT/HCPCS: 74177; 80048; 81001; 85025; 96361; 96374; 96375; 99282; J7030; Q9967; J2405

== ENCOUNTER 2024-04-16 18:34 | Emergency (ER) | payer MEDICARE, OTHER, SELFPAY ==
[2024-04-16 18:35] VITALS: BP 189/90; PULSE 68; RESP 18; TEMP 36.6; O2SAT 98; BMI 26.6
--- NOTE | 2024-04-16 19:05 | CT_ITS ---
EXAMINATION : Head CT w/out contrast HISTORY : Closed head injury, persistent headache, COMPARISON : 11/28/2020. TECHNIQUE : Multiple contiguous axial images were obtained from the skull base to the vertex without intravenous contrast. A radiation dose optimization technique was used for this scan. FINDINGS : There is no evidence for acute intracranial hemorrhage, mass effect, or midline shift. There is no extra-axial fluid collection. There are periventricular white matter changes consistent with chronic microvascular ischemic disease. There is sulcal widening and ventricular enlargement consistent with cerebral atrophy. There is normal mcneal-white differentiation, without CT evidence of acute ischemia or infarct. The skull base and calvarium are unremarkable. The orbits are unremarkable. The paranasal sinuses are clear. The mastoid air cells are well-aerated. The soft tissues are unremarkable. CT/Brain/Head without Contrast IMPRESSION: No acute intracranial abnormality. Chronic involutional and ischemic changes of the brain. Electronically Signed: Jere Dean MD at 20:00 EDT ,
--- NOTE | 2024-04-16 19:23 | EDS_ITS ---
HPI HPI - Fall History of Present Illness Chief Complaint: Fall Detail of Chief Complaint: Headache status post fall Informant: patient Occured/Mechanism Occurred: Weeks (6 weeks) Mechanism/Context: Yes same level fall Narrative: Patient fell backward striking the back of her head. She saw stars. Usually ambulates: Without assistance Pain/Injury Location: Occiput Current Severity: Mild Maximum Severity: Severe Worsened by: Nothing specific Relieved by: Improves if she takes Tylenol or NSAID Associated Symptoms Associated Symptoms: Positive for Loss of consciousness (Transient); Negative for Parasthesias, Weakness, Loss of function, Inability to ambulate or Amnesia Narrative Narrative: Patient is a 84-year-old woman. Patient was instructed to come to the emergency room by her PCP. She had a fall 6 weeks ago. She had transient loss of consciousness. She has had headaches since the fall. Headache was worse the first 1 to 2 weeks. She denies double vision blurred vision loss of vision. Denies neck pain. Denies paresthesia, anesthesia or motor weakness upper lower extremity. She does report nausea. She had no vomiting recently. She is not on an antithrombotic or anticoagulant. Patient denies fever, chills night sweats. Patient denies double vision, blurred vision or loss of vision. She denies ringing or ears or decreased hearing. She denies neck stiffness. She denies cardiac respiratory symptoms. Patient is concerned that her insurance will deny her ER visit and the CAT scan. Patient was informed based on the [place] head rules she meets criteria for a scan and it is medically necessary. Prior similar symptoms: No Recent Illness/Hospitalization: No [facility] Medical History (Updated 04/16/24 @ 20:[address] Everett Sebastian MD) Psoriasis Urticaria Acute gastritis Esophagitis Diverticulitis of colon Chronic cough Hoarseness Overweight HUMPHRIES (dyspnea on exertion) Stage 1 mild COPD by GOLD classification Home Medications ?Medication ?Instructions ?Recorded ?Last Taken ?Type magnesium 250 mg tablet 125 mg PO QDAY supplement 10/09/17 Unknown History potassium gluconate 595 mg (99 mg) 595 mg PO QDAY supplement 10/09/17 Unknown History tablet aclidinium bromide 400 400 mcg IH BID breathing 11/28/20 Unknown History mcg/actuation breath activated powder inhaler amlodipine 10 mg tablet 10 mg PO QDAY ##0 11/29/20 Unknown Rx furosemide 20 mg tablet 20 mg PO DAILY PRN PRN leg 11/29/20 Unknown Rx swelling ##0 lisinopril 10 mg tablet 10 mg PO DAILY ##0 11/29/20 Unknown Rx meclizine 25 mg tablet 25 mg PO 4X/DAY PRN PRN Dizziness 04/06/21 Unknown Rx #20 tabs sucralfate 1 gram tablet 1 g PO QAC #90 tabs 06/19/22 Unknown Rx ciprofloxacin HCl 500 mg tablet 500 mg PO BID #20 TABLETS 11/18/23 Unknown Rx metronidazole 500 mg tablet 500 mg PO Q6H #40 tabs 11/18/23 Unknown Rx dicyclomine 10 mg capsule 10 mg PO BID #60 caps 12/25/23 Unknown Rx doxycycline hyclate 100 mg capsule 100 mg PO BID #60 caps 01/05/24 Unknown Rx esomeprazole magnesium 40 mg 40 mg PO QAM #90 caps 01/09/24 Unknown Rx capsule,delayed release Allergy/AdvReac Type Severity Reaction Status Date / Time Latex, Natural Rubber Allergy Mild Verified 04/16/24 18:35 simvastatin (From Zocor) Allergy Mild Verified 04/16/24 18:35 guaifenesin (From Robitussin) Allergy Unknown Verified 04/16/24 18:35 Penicillins Allergy Anaphylaxis Verified 04/16/24 18:35 Sulfa (Sulfonamide Allergy Unknown Verified 04/16/24 18:35 Antibiotics) Family History Mother Colon cancer Father Colon cancer Sister Breast cancer Diabetes CVA (cerebral vascular accident) Cervical cancer Brother Heart disease Daughter COPD (chronic obstructive pulmonary disease) Son Diabetes Surgical History History of cataract extraction History of amputation of right great toe History of appendectomy history of left arm surgery history of hand reconstruction Social History Smoking Status: Never smoker ROS ROS ED Constitutional Constitutional ED: Denies chills, fever(s) or subjective Eyes Eyes: Denies blurry vision, change in vision or diplopia Cardiovascular Cardiovascular: Denies chest pain or palpitations Respiratory/Chest Respiratory/Chest: Denies cough, dyspnea or dyspnea on exertion Gastrointestinal Gastrointestinal: Reports nausea; Denies vomiting Genitourinary Genitourinary ED: Denies hematuria Musculoskeletal Musculoskeletal: Denies arthralgias, back pain or myalgias Integumentary Denies rash Neurologic Neurologic: Reports headache(s); Denies paresthesias or weakness Endocrine Endocrinology: Denies polydipsia, polyphagia or polyuria Hematologic/Lymphatic Hematologic/Lymphatic: Denies easy bleeding or easy bruising EXAM Physical Exam Const Vital Signs: 04/16/24 18:35 04/16/24 18:59 Temperature 98 F Temperature Source Temporal Pulse Rate 68 Respiratory Rate 18 Respiratory Effort Normal Respiratory Depth Normal Respiratory Pattern Normal Blood Pressure 189/90 H Blood Pressure Mean 123 Pulse Ox 98 Oxygen Delivery Method Room Air Room Air Positive well nourished and well developed General Appearance ED: well developed and NAD HEENT Reports normocephalic, TM's clear and TM's normal bilaterally HEENT Narrative: No clinical signs of basilar skull fracture. trauma Tympanic Membrane ED: Yes TM's clear Eyes PERRL and EOMs intact bilaterally Eyes Narrative: There is no nystagmus. There is no APD. There is no subconjunctival hemorrhage. General Eye ED: Negative for pale conjunctiva or scleral icterus Neck full ROM, no lymphadenopathy and supple Neck Narrative: There is no midline posterior neck pain. Resp no retractions and clear to auscultation bilaterally Cardio regular rate, regular rhythm, S1 normal heart sound, S2 normal heart sound and no murmurs Back/Spine Cervical Spine: Negative for cervical spine tenderness Lumbar Spine / Lower Back: Negative for lumbar spinal tenderness Extremity Extremity Narrative: Grossly normal Neuro oriented x3, CN's II-XII intact bilaterally, moves all extremities, no focal motor deficits and no sensory deficits noted [place] Coma Scale: document GCS findings Spontaneous Obeys Commands Oriented 15 Motor Exam: strength 5/5 throughout Psych Psych Narrative: Patient is anxious because she is concerned that her insurance company will deny the visit because they did not hide when she had traumatic injury to her thumb that was infected. Skin Lesions: no lesions Rashes: no rashes MDM MDM MDM Narrative Medical decision making narrative: Patient met criteria for CT based on the [place] CT head rule and [place] rule date of injury. Since patient had a persistent headache and is required oral analgesics for 6 weeks we will obtain CT to rule out intracranial bleed i.e. subdural hematoma intraparenchymal contusion. Doubt traumatic subarachnoid and doubt epidural abscess. Radiography Diagnostic Testing: Clinical Impression(s) from Imaging Studies Brain CT 04/16/24 19:05 IMPRESSION: No acute intracranial abnormality. Chronic involutional and ischemic changes of the brain. Electronically Signed: Jere Dean MD at 20:00 EDT , CT was reviewed by me and agree there is no acute process. Discharge Plan Triage Chief Complaint: Fall ED Provider: Everett Sebastian Dx/Rx/DC Orders Clinical Impression: Post-concussion syndrome, Injury due to fall, Dizziness due to old head trauma Instructions: Coping with Concussion, ED Concussion Prescriptions: No Action magnesium 250 mg tablet 125 mg PO QDAY potassium gluconate 595 mg (99 mg) tablet 595 mg PO QDAY dicyclomine 10 mg capsule 10 mg PO BID Qty: 60 2RF aclidinium bromide 400 MCG aerosol powdr breath activated 400 mcg IH BID amlodipine 10 mg tablet 10 mg PO QDAY Qty: 0 0RF Rx Instructions: Hold for systolic blood pressure less than 130 mmHg lisinopril 10 MG tablet 10 mg PO DAILY Qty: 0 0RF Rx Instructions: Hold for SBP less than 130 mmHg furosemide 20 mg tablet 20 mg PO DAILY PRN PRN (Reason: leg swelling) Qty: 0 0RF meclizine 25 mg tablet 25 mg PO 4X/DAY PRN PRN (Reason: Dizziness) Qty: 20 0RF metronidazole [metronidazole] 500 mg tablet 500 mg PO Q6H Qty: 40 0RF ciprofloxacin HCl [ciprofloxacin HCl] 500 mg tablet 500 mg PO BID Qty: 20 0RF sucralfate 1 gram tablet 1 g PO QAC Qty: 90 1RF doxycycline hyclate 100 mg capsule 100 mg PO BID Qty: 60 1RF esomeprazole magnesium 40 mg capsule,delayed release(DR/EC) 40 mg PO QAM Qty: 90 1RF Primary Care Provider: Suyapa Joradn Referrals: Suyapa Jordan MD [Primary Care Provider] - As Needed Print Language: Maltese Disposition Disposition: Home, Self Care
[2024-04-16 20:40] VITALS: BP 158/74; PULSE 70; RESP 16; TEMP 36.4; O2SAT 95
== END 2024-04-16 20:41 | disposition home or self-care (01) ==
PROVIDERS: Emergency Provider Emergency Medicine; PCP Internal Medicine; Visit Provider Emergency Medicine
DX: F07.81 Postconcussional syndrome (principal); J44.9 Chronic obstructive pulmonary disease, unspecified; R42 Dizziness and giddiness; R51.9 Headache, unspecified; W01.10XA Fall on same level from slipping, tripping and stumbling with subsequent striking against unspecified object, initial encounter
CPT/HCPCS: 70450; 99282

== ENCOUNTER 2024-12-31 15:45 | Emergency (ER) | payer MEDICARE, OTHER, SELFPAY ==
[2024-12-31 15:45] VITALS: BP 197/125; PULSE 81; TEMP 36.4; O2SAT 98; BMI 26.6
--- NOTE | 2024-12-31 15:57 | EDS_ITS ---
HPI History of Present Illness Chief Complaint: Back [facility] Medical History Psoriasis Urticaria Acute gastritis Esophagitis Diverticulitis of colon Chronic cough Hoarseness Overweight HUMPHRIES (dyspnea on exertion) Stage 1 mild COPD by GOLD classification Home Medications ?Medication ?Instructions ?Recorded ?Last Taken ?Type magnesium 250 mg tablet 125 mg PO QDAY supplement Unknown History potassium gluconate 595 mg (99 mg) 595 mg PO QDAY supp lement 10/09/17 Unknown History tablet aclidinium bromide 400 400 mcg IH BID breathing 02/12 Unknown History mcg/actuation breath activated powder inhaler amlodipine 10 mg tablet 10 mg PO QDAY ##0 11/29/20 U nknown Rx furosemide 20 mg tablet 20 mg PO DAILY PRN PRN leg 0 11/29/20 Unknown Rx swelling ##0 lisinopril 10 mg tablet 10 mg PO DAILY ##0 11/29/20 Unknown Rx dicyclomine 10 mg capsule 10 mg PO BID #60 caps Unknown Rx esomeprazole magnesium 40 mg 40 mg PO QAM #90 caps 08/17 Unknown Rx capsule,delayed release Allergy/AdvReac Type Severity Reaction Status Date / Time Latex, Natural Rubber Allergy Mild Verified 12/31/24 15:53 simvastatin (From Zocor) Allergy Mild Verified 12/31/24 15:53 guaifenesin (From Robitussin) Allergy Unknown Verified 12/31/24 15:53 Penicillins Allergy Anaphylaxis Verified 12/31/24 15:53 Sulfa (Sulfonamide Allergy Unknown Verified 12/31/24 15:53 Antibiotics) Family History Mother Colon cancer Father Colon cancer Sister Breast cancer Diabetes CVA (cerebral vascular accident) Cervical cancer Brother Heart disease Daughter COPD (chronic obstructive pulmonary disease) Son Diabetes Surgical History History of cataract extraction History of amputation of right great toe History of appendectomy history of left arm surgery history of hand reconstruction Social History Smoking Status: Never smoker EXAM Physical Exam Const Vital Signs: 12/31/24 15:45 12/31/24 17:45 12/31/24 19:00 Temperature 97.5 F L Temperature Source Temporal Pulse Rate 81 66 70 Respiratory Rate 16 Blood Pressure 197/125 H 153/87 H 158/79 H Blood Pressure Mean 149 109 105 Pulse Ox 98 97 96 Oxygen Delivery Method Room Air Room Air Room Air [facility] Narr[place] Medical decision making narrative: HISTORY OF PRESENT ILLNESS: Chief complaint: Back pain 84-year-old female history of constipation, hiatal hernia, GERD, UTI, COPD presents with back pain. States her back pain start after work in the garden yesterday. She further states she was doing yard work with her bent over. did not feel any immediate pain but noticed worsening pain overnight. Located lower back Patient denies any saddle anesthesia, urinary retention, bowel or bladder incontinence, lower extremity weakness, fever or IV drug use, no recent spinal manipulation or surgery, no recent urinary catheterization. REVIEW OF SYSTEMS: Pertinent positives: Low back pain Pertinent negatives: Bowel or bladder incontinence PHYSICAL EXAM: Nursing triage notes reviewed, Vital signs reviewed Constitutional: please see [facility] HENT: MMM Eyes: Pupils equal round and reactive to light, Extraocular muscles intact Neck: No stridor, no JVD, full neck ROM Lungs: Clear to auscultation, No wheezing or rales. No increased work of breathing, no conversational dyspnea, no accessory muscle use, no nasal flaring. No respiratory distress noted Heart: Regular rate and rhythm, No murmurs, No rubs and No gallops, 2+ distal pulses (radial, femoral, posterior tibial) in all extremities Abdomen: Soft, there is no tenderness, rigidity, rebound or guarding, no obvious peritoneal signs, no palpable pulsatile abdominal masses, no auscultated abdominal bruit : No CVAT Extremities: No edema Neuro: No new focal neurological deficits, cranial nerves II through XII intact, 5/5 strength in all present extremities. Intact sensation to light touch in all present extremities, 2+ reflexes bilateral patella tendons. Skin: No rash or lesions noted MEDICAL DECISION MAKING: Chief Complaint: please see [facility] External records reviewed: Factors affecting care: none Social determinants of health: none History obtained from others: none Consults: none [facility] Narrative: Patient was initially hypertensive blood pressure 197/125, afebrile nontoxic- appearing. Initial exam without focal neurologic deficits in lower extremities. I considered the following differential diagnosis: Bony injury, cauda equina, conus medullaris, skeletal back pain The patient was treated with oral muscle laxer's, oral narcotics, oral steroids lidocaine patch and ibuprofen ALL IMAGES (IF OBTAINED) HAVE BEEN PERSONALLY REVIEWED AND INTERPRETED BY MYSELF. CT scan of the lumbar spine shows acute/subacute L1 compression fracture The synthesis of the patient's history, physical exam, labs emergency thoracic L1 compression fracture On reevaluation patient blood pressure improved to 158/79. Pain improved. Will prescribe narcotics, muscle relaxers and steroids. Will give close spine follow-up The patient and/or family, caregivers express understanding. The patient and/or family, caregivers agrees with the plan. Shared decision making: I will have a discussion with the patient and or visitors regarding ris k/benefits of further testing or admission. They will be made aware of of the risk/benefits inherent in this decision they will be given the opportunity to voice understanding. Total critical care time today provided was at least 0 minutes. This excludes separately billable procedures. Critical care time (if documented) is secondary to the patient having high probability of clinically significant/life threatening deterioration in the patient's condition which required my urgent intervention. Impression: 1. Acute back pain 2. L1 compression fracture Dispo: Discharge This note was generated with [employer] dictation software. It may contain incorrect words, spelling, and punctuation that were not noted in review of the chart prior to signing. Radiography Diagnostic Testing: Clinical Impression(s) from Imaging Studies Lumbar Spine CT 12/31/24 16:11 IMPRESSION: Mild acute-subacute L1 compression deformity. Degenerative changes without high-grade canal stenosis or neural foraminal narrowing. Reading Location: [facility] Discharge Plan Triage Chief Complaint: Back ED Provider: Johnson Osborne Dx/Rx/DC Orders Prescriptions: No Action magnesium 250 mg tablet 125 mg PO QDAY potassium gluconate 595 mg (99 mg) tablet 595 mg PO QDAY dicyclomine 10 mg capsule 10 mg PO BID Qty: 60 2RF aclidinium bromide 400 MCG aerosol powdr breath activated 400 mcg IH BID amlodipine 10 mg tablet 10 mg PO QDAY Qty: 0 0RF Rx Instructions: Hold for systolic blood pressure less than 130 mmHg lisinopril 10 MG tablet 10 mg PO DAILY Qty: 0 0RF Rx Instructions: Hold for SBP less than 130 mmHg furosemide 20 mg tablet 20 mg PO DAILY PRN PRN (Reason: leg swelling) Qty: 0 0RF esomeprazole magnesium 40 mg capsule,delayed release(DR/EC) 40 mg PO QAM Qty: 90 1RF Primary Care Provider: Suyapa Jordan Referrals: Suyapa Jordan MD [Primary Care Provider] - Print Language: Frisian
--- NOTE | 2024-12-31 16:11 | CT_ITS ---
PROCEDURE: SPINE LUMBAR WITHOUT CONTRAST 12/31/2024 REASON FOR EXAM: BACK PAIN TECHNIQUE: Lumbar spine CT without contrast. Coronal and Sagittal reconstruction series were provided. One or more dose reduction techniques were used (e.g., Automated exposure control, adjustment of the mA and/or kV according to patient size, use of iterative reconstruction technique COMPARISON: None. FINDINGS: Vertebrae: Mild acute-subacute L1 compression deformity. Less than 10% loss of disc height. Remainder of the vertebral body heights are within normal limits. Disc spaces are maintained. Diffuse osteopenia. Multilevel degenerative changes, without high-grade canal stenosis or neural foraminal narrowing. Alignment: Lumbar lordosis is maintained. Grade 1 anterolisthesis of L4 on L5. Multilevel degenerative changes without high-grade canal stenosis or neural foraminal narrowing. Sacrum: Mild degenerative changes of the SI joints CT/Spine Lumbar without Contrast IMPRESSION: Mild acute-subacute L1 compression deformity. Degenerative changes without high-grade canal stenosis or neural foraminal narr owing. Reading Location: [facility]
[2024-12-31] MEDS: Orphenadrine 100 MG Tablet PO (16:17)
[2024-12-31] MEDS: oxyCODONE 5 MG Tablet PO (16:17)
[2024-12-31] MEDS: Ibuprofen 200 MG Tablet 400 MG PO (16:17)
[2024-12-31] MEDS: predniSONE 20 MG Tablet PO (16:17)
[2024-12-31] MEDS: Lidocaine 5% Patch 1 PATCH TOPICAL (16:18)
[2024-12-31 17:45] VITALS: BP 153/87; PULSE 66; RESP 16; O2SAT 97
[2024-12-31 19:00] VITALS: BP 158/79; PULSE 70; O2SAT 96
[2024-12-31 20:00] VITALS: BP 161/74; PULSE 64; RESP 18; TEMP 36.6; O2SAT 96
== END 2024-12-31 20:31 | disposition home or self-care (01) ==
PROVIDERS: Emergency Provider Emergency Medicine; PCP Internal Medicine; Visit Provider Emergency Medicine
DX: M48.56XA Collapsed vertebra, not elsewhere classified, lumbar region, initial encounter for fracture (principal); J44.9 Chronic obstructive pulmonary disease, unspecified; K21.9 Gastro-esophageal reflux disease without esophagitis
CPT/HCPCS: 72131; 99283

== ENCOUNTER 2025-01-10 07:23 | Observation (INO) | payer MEDICARE, OTHER, SELFPAY ==
[2025-01-10 07:24] VITALS: BP 114/89; PULSE 67; RESP 18; TEMP 36.6; O2SAT 95; BMI 28.9
--- NOTE | 2025-01-10 07:50 | ED.VIS.BACK ---
HPI History of Present Illness Chief Complaint: Back Informant: patient and EMS Narrative Narrative: 84-year-old female presenting to the emergency room with low back pain. Patient states that last week she was seen in the emergency department for sudden onset of back pain. She states that she was bent over putting gas in the mower when she suddenly got a sharp pain in the midline of the lumbar region. She states that she underwent a CT scan that showed a compression fracture. Review of the chart shows a mild compression fracture of L1 was read by radiology. Patient denies any radicular symptoms. She denies any difficulty with bowel or bladder control. Last bowel movement was yesterday. She states she was given 3 days of pain medication and has no more that pain medicine. She states she was given the name of her doctor to follow-up with but she does not know that And did not schedule follow-up with them or primary care. She states last night she took a Tylenol PM and slept through the night but this morning she was unable to get up out of bed. She states her has stage IV cancer and cannot really care for so he called the ambulance. She denies any fevers. No rashes. She states that she has a IcyHot patch on the low back. She denies any abdominal pain. No urinary symptoms. [facility] Medical History (Updated 01/10/25 @ 09:[address] Gus Garza, ) Psoriasis Urticaria Acute gastritis Esophagitis Diverticulitis of colon Chronic cough Hoarseness Overweight HUMPHRIES (dyspnea on exertion) Stage 1 mild COPD by GOLD classification Home Medications ?Medication ?Instructions ?Recorded ?Last Taken ?Type furosemide 20 mg tablet 20 mg PO DAILY PRN PRN leg 11/29/20 01/10/25 Rx swelling ##0 esomeprazole magnesium 40 mg 40 mg PO QAM #90 caps 07/06/24 01/10/25 Rx capsule,delayed release amlodipine 2.5 mg tablet 2.5 mg PO DAILY 01/10/25 01/10/25 History calcium carbonate (Oyster Shell 500 mg PO DAILY 01/10/25 01/10/25 History Calcium) lisinopril 20 mg tablet 20 mg PO DAILY 01/10/25 01/10/25 History lysine 500 mg tablet (L-Lysine) 500 mg PO DAILY 01/10/25 01/10/25 History zinc acetate 50 mg (zinc) capsule 50 mg PO DAILY 01/10/25 01/10/25 History (Galzin) Allergy/AdvReac Type Severity Reaction Status Date / Time Latex, Natural Rubber Allergy Mild Verified 01/10/25 07:27 simvastatin (From Zocor) Allergy Mild Verified 01/10/25 07:27 guaifenesin (From Robitussin) Allergy Unknown Verified 01/10/25 07:27 Penicillins Allergy Anaphylaxis Verified 01/10/25 07:27 Sulfa (Sulfonamide Allergy Unknown Verified 01/10/25 07:27 Antibiotics) Family History Mother Colon cancer Father Colon cancer Sister Breast cancer Diabetes CVA (cerebral vascular accident) Cervical cancer Brother Heart disease Daughter COPD (chronic obstructive pulmonary disease) Son Diabetes Surgical History History of cataract extraction History of amputation of right great toe History of appendectomy history of left arm surgery history of hand reconstruction Social History Smoking Status: Never smoker ROS ROS ED Constitutional Constitutional ED: Denies chills, fever(s) or weight loss Eyes Eyes: Denies change in vision or diplopia ENT ENT ED: Denies ear pain, rhinorrhea or sore throat Cardiovascular Cardiovascular: Denies chest pain, orthopnea, palpitations or racing heartbeat Respiratory/Chest Respiratory/Chest: Denies cough, dyspnea or orthopnea Gastrointestinal Gastrointestinal: Denies abdominal pain, diarrhea, nausea or vomiting Genitourinary Genitourinary ED: Denies dysuria, hematuria or urinary frequency Musculoskeletal Musculoskeletal: Reports back pain; Denies arthralgias, myalgias or neck pain Integumentary Denies abscess or rash Neurologic Neurologic: Denies headache(s), paresthesias or weakness Psychiatric Psychiatric: Denies anxiety, depression, suicidal ideation or suicidal thoughts Endocrine Endocrinology: Denies polydipsia, polyphagia or polyuria Allergic/Immunologic Allergic/Immunologic ED: Denies mouth swelling, tongue swelling or urticaria EXAM Physical Exam Narrative Exam Narrative: Elderly female sitting slightly laying back in the bed. Const Vital Signs: 01/10/25 07:24 Temperature 97.8 F Temperature Source Oral Pulse Rate 67 Respiratory Rate 18 Blood Pressure 114/89 H Blood Pressure Mean 97 Pulse Ox 95 Oxygen Delivery Method Room Air Positive well nourished and well developed General Appearance ED: well developed and NAD HEENT Reports normocephalic, head/scalp atraumatic and moist mucous membranes Eyes PERRL and EOMs intact bilaterally Neck no lymphadenopathy, supple and no JVD Resp normal respiratory effort and clear to auscultation bilaterally Cardio regular rate, regular rhythm and no murmurs GI normal to inspection, nondistended, normoactive bowel sounds and non-tender Palpation: soft Back/Spine no CVA tenderness and normal ROM Back/Spine Narrative: Painful range of motion. She notes pain in the midline of the lower lumbar region. I do not appreciate any rashes. There is an icy patch on but I remove this to the evaluate the skin and do not appreciate rash. No significant tenderness to palpation in the paraspinal musculature. Extremity normal to inspection General Extremety ED: Negative for edema General Extremity: Negative for edema Neuro oriented x3, CN's II-XII intact bilaterally and no sensory deficits noted Neuro Narrative: no saddle anesthesia. normal LE reflexes. Normal sensation of legs. =strength in both legs. Sensorium / Orientation: alert Motor Exam: strength 5/5 throughout Deep Tendon Reflexes: Rt Patellar (L4): 2+, Lt Patellar (L4): 2+, Rt Ankle (S1): 2+ and Lt Ankle (S1): 2+ Deep Tendon Reflexes Back: Rt Patellar (L4): 2+, Lt Patellar (L4): 2+, Rt Ankle (S1): 2+ and Lt Ankle (S1): 2+ Psych mental status grossly normal Mood & Affect: Negative for depressed or tearful Skin no rashes or lesions noted and no wounds MDM MDM MDM Narrative Medical decision making narrative: Differential diagnosis includes but not limited to fracture lumbar stenosis cauda equina lumbar radiculopathy disc herniation hematoma infection Basic blood work shows a white count of 5.5 hemoglobin 13.9 platelet count is 238. CMP was obtained shows an alkaline phosphatase of 107 creatinine 0[address] of the lumbar spine was repeated which shows progression of the fracture with mild retropulsion of the posterior wall. She is neurologically intact. Please see radiologist read for full details patient received pain medication. She still has significant pain with range of motion. I spoke with the patient and her . I think the appropriate next course would be admission MRI and spine evaluation. History & Record Review Discussion w/independent historian: Patient and Family Additional record(s) reviewed:: Prior ED visit and Prior labs Lab Data Attestation: I reviewed the patient's lab results. Labs: Laboratory Results - last 24 hr 01/10/25 07:57 WBC 5.5 RBC 4.62 Hgb 13.9 Hct 41.4 MCV 89.6 MCH 30.1 MCHC 33.6 RDW Std Deviation 39.0 RDW Coeff of Catrina 12.0 Plt Count 238 MPV 9.4 Immature Gran % (Auto) 0.200 Neut % (Auto) 61.9 Lymph % (Auto) 25.1 Calvert % (Auto) 10.7 H Eos % (Auto) 1.4 Baso % (Auto) 0.7 Absolute Neuts (auto) 3.4 Absolute Lymphs (auto) 1.39 Nucleated RBC % 0 Sodium 142 Potassium 3.9 Chloride 110 H Carbon Dioxide 22.2 Anion Gap 10 BUN 21 H Creatinine 0.87 Estim Creat Clear Calc 43.87 L Est GFR (MDRD) Non-Af 65 BUN/Creatinine Ratio 23.9 H Glucose 91 Calcium 9.4 Total Bilirubin 0.25 AST 24 ALT 11 Alkaline Phosphatase 107 H Total Protein 6.8 Albumin 3.8 Globulin 3.0 Albumin/Globulin Ratio 1.2 Radiography Diagnostic Testing: Clinical Impression(s) from Imaging Studies Lumbar Spine CT 01/10/25 08:15 IMPRESSION: 1. Mild progression of acute to subacute compression fracture at the superior endplate of L1. 2. Minimal retropulsion of the posterior superior wall of L1 resulting in minimal osseous spinal canal stenosis. 3. Grade 1 anterolisthesis of L4 on L5. 4. Moderate multilevel degenerative change, greatest at L5-S1. Reading [facility] Management Discussion w/another healthcare provider: Hospitalist (Dr Brown) Discharge Plan Dx/Rx/DC Orders Clinical Impression: Lumbar compression fracture, Acute back pain, Lumbar degenerative disc disease, Anterolisthesis of lumbar spine Disposition Disposition: [facility]
[2025-01-10] MEDS: Morphine 4 MG/ML Syringe IV (07:55)
[2025-01-10] MEDS: Ondansetron 4 MG/2 ML Vial IV (07:55)
[2025-01-10 08:09] LABS: Absolute Lymphocyte Count 1.39 X10^3/uL (0.83-4.51); Absolute Neutrophil Count 3.4 X10^3/uL (2.0-7.7); Basophil# 0.04 X10^3/uL; Basophil% 0.7 % (0-1); Eosinophil# 0.08 X10^3/uL; Eosinophils% 1.4 % (0-5); Hematocrit 41.4 % (37-47); Hemoglobin 13.9 g/dL (12.0-15.0); Lymphocyte # 1.39 X10^3/ul (0.83-4.51); Lymphocyte % 25.1 % (19-41); Mean Corp Hgb Conc 33.6 g/dL (32-36); Mean Corpuscular Hgb 30.1 pg (27.0-32.0); Mean Corpuscular Volume 89.6 fL (81-99); Mean Platelet Vol. 9.4 fl (6.2-12.0); Monocyte# 0.59 X10^3/uL; Monocyte% 10.7 % (0-10); NRBC Flagged by Analyzer 0 % (0-5); Neutrophil # 3.42 X10^3/uL (2.7-7.7); Neutrophil % 61.9 % (47-70); Platelet Count 238 K/mm3 (150-450); Red Blood Count 4.62 M/mm3 (4.2-5.4); White Blood Count 5.5 K/mm3 (4.4-11.0)
--- NOTE | 2025-01-10 08:15 | CT_ITS ---
PROCEDURE: SPINE LUMBAR WITHOUT CONTRAST 01/10/2025 REASON FOR EXAM: L1 COMPRESSION FRACTURE/INCREASED PAIN Increased lumbar pain. TECHNIQUE: Lumbar spine CT without contrast. Coronal and Sagittal reconstruction series were provided. One or more dose reduction techniques were used (e.g., Automated exposure control, adjustment of the mA and/or kV according to patient size, use of iterative reconstruction technique COMPARISON: December 31, 2024 RADIATION DOSE SUMMARY: CTDlvol: 15.65 mGy DLP: 521.23 mGycm FINDINGS: Vertebrae: Acute to subacute compression fracture at the superior endplate of L1 with slight progression of vertebral body height loss compared to 12/31/2024 and more visualized fracture line at the superior endplate of L1. Minimal retropulsion of the posterior superior wall of L1 resulting in minimal osseous spinal canal stenosis. Alignment: Grade 1 anterolisthesis of L4 on L5 Vacuum disc phenomenon consistent with disc degeneration at L1-2, L4-5 and L5-S1. Advanced facet degenerative changes L4-5. Evaluation noncalcified disc pathology is markedly limited on CT without intrathecal contrast and is best evaluated with MRI. While evaluation is limited at L4-5 there does appear to be disc uncovering from anterolisthesis and diffuse disc bulge resulting in at least mild spinal canal and bilateral neural foraminal narrowing. Additional small disc bulges appear present at L2-3, L3-4 and L5-S1. Sacrum: Sacrum appears intact. CT/Spine Lumbar without Contrast IMPRESSION: 1. Mild progression of acute to subacute compression fracture at the superior endplate of L1. 2. Minimal retropulsion of the posterior superior wall of L1 resulting in mini mal osseous spinal canal stenosis. 3. Grade 1 anterolisthesis of L4 on L5. 4. Moderate multilevel degenerative change, greatest at L5-S1. Reading Location[facility]
[2025-01-10 08:48] LABS: ALB/GLOB Ratio 1.2 RATIO (0.9-2.4); AST(SGOT) 24 U/L (<=31); Alanine Aminotransfer ALT/SGPT 11 U/L (<=34); Albumin, Serum 3.8 g/dL (3.4-4.8); Alkaline Phosphatase 107 U/L (35-104); Anion Gap 10 (5-15); BUN 21 mg/dL (4-19); BUN/Creat Ratio 23.9 RATIO (10-20); Calcium,Total 9.4 mg/dL (7.6-11.0); Carbon Dioxide 22.2 mmol/L (21.0-32.0); Chloride 110 mmol/L (98-108); Creatinine, Serum 0.87 mg/dL (0.70-1.20); EST Glomerular Filtration Rate 65 (>60); Estimated Creatinine Clearance 43.87 ml/min (50-250); Glucose 91 mg/dL (70-99); Potassium 3.9 mmol/L (3.3-5.1); Protein, Total 6.8 g/dL (5.9-8.4); Sodium Level 142 mmol/L (133-145); Total Bilirubin 0.25 mg/dL (0.00-1.30)
[2025-01-10 09:50] VITALS: BP 147/78; PULSE 78; RESP 19; TEMP 36.6; O2SAT 97
[2025-01-10 10:03] LABS: Bacteria 0 SEEN /hpf (None Seen); Mucous, Urine 0 SEEN /hpf (<or=2+); Red Blood Cells-Urine 0 SEEN /hpf (0-5)
[2025-01-10 10:06] LABS: Color, Urine Yellow (Yellow); Glucose, Dipstick Normal (Normal); Ketone-Dipstick Negative (Negative); Leukocyte Esterase-Dipstick 100 /ul (Negative); Nitrite-Dipstick Negative (Negative); Occult Blood-Urine 10 /ul (Negative); Protein-Dipstick 30 mg/dl (Negative); Specific Gravity, Urine 1.015 (1.002-1.030); Urine Bilirubin Dipstick Negative (Negative); Urine Clarity Sl. Cloudy (Clear); Urine Urobilinogen Normal (Normal)
--- NOTE | 2025-01-10 10:09 | ED.RN ---
patient requesting to go home. Dr. Garza informed. AMA paperwork printed
--- NOTE | 2025-01-10 10:13 | ED.RN ---
after discussion with this RN, patient decided to stay and be admitted
[2025-01-10 10:23] LABS: Squamous Epithelial Cells - UA 0-5 SEEN /hpf (5-10); Transitional Epithelial - Ur 0-5 SEEN /hpf (0-5); White Blood Cells 0-5 SEEN /hpf (0-5)
--- NOTE | 2025-01-10 10:36 | MRI_ITS ---
PROCEDURE: MRI SPINE LUMBAR (ROUTINE) 01/10/2025 REASON FOR EXAM: COMPRESSION FRACTURE EVALUATION Lumbar pain. TECHNIQUE: MRI lumbar spine without contrast. Multiplanar and multisequence images were obtained without IV contrast administration. COMPARISON: CT lumbar spine 01/10/2025 and 12/31/2024 FINDINGS: Vertebrae: There is acute progression of a [id number] compression fracture of L1 with marrow edema, visualized fracture lines at the superior endplate and further vertebral body height loss compared to 12/31/2024. Minimal retropulsion of the posterior superior wall of L1 resulting in minimal spinal canal stenosis. The retropulsion of the posterior superior L1 wall does not contact or compress the distal spinal cord. Alignment: Grade 1 anterolisthesis of L4 on L5 Conus Medullaris: Distal spinal cord demonstrates normal signal characteristics and contour. L1-2: L1-2 mild diffuse disc bulge resulting in minimal spinal canal stenosis without mass effect on the nerve roots. Mild bilateral neural foraminal stenosis without mass effect on the nerve roots L2-3: L2-3 minimal diffuse disc bulge. Minimal spinal canal stenosis and mild bilateral neural foraminal stenosis without mass effect on the nerve roots L3-4: L3-4 diffuse disc bulge and mild bilateral facet degenerative change. Moderate spinal canal stenosis. Disc bulge contacts the nerve roots in the ventral spinal canal without compression of the nerve roots. Disc bulge contacts the bilateral L3 nerve roots without compression of the nerve roots. L4-5: L4-5 diffuse disc bulge, disc uncovering from grade 1 anterolisthesis and advanced bilateral facet degenerative changes results in severe spinal canal stenosis with compression of the nerve roots in the spinal canal. [id number] bilateral neural foraminal stenosis without mass effect on the nerve roots L5-S1: L5-S1 diffuse disc bulge, asymmetric to the left and mild bilateral facet degenerative change. Minimal spinal canal stenosis without mass effect on the nerve roots. Minimal right neural foraminal stenosis without mass effect on the nerve root. Moderate left neural foraminal stenosis. Disc bulge contacts the left L5 nerve root without compression of the nerve root. Sacrum: Partially visualized upper sacrum appears intact Incidental notation made of bilateral renal cysts. MRI/Spine Lumbar (Routine) IMPRESSION: 1. Acute progression of [id number] L1 compression fracture with marrow e nataly. Minimal retropulsion of posterior superior wall of L1 resulting in minimal spinal canal stenosis without mass effect on th e spinal cord. 2. Grade 1 anterolisthesis of L4 on L5. 3. Severe L4-5 spinal canal stenosis with compression of the nerve roots withi n the spinal canal. 4. Multilevel degenerative changes with varying degrees of spinal canal and ne ural foraminal stenosis, as detailed above. Reading Location: [facility]
[2025-01-10 10:44] VITALS: BP 157/65; PULSE 63; RESP 18; TEMP 36.7; O2SAT 97
[2025-01-10] MEDS: oxyCODONE 5 MG Tablet PO ×2 (11:15→21:05)
[2025-01-10 11:37] VITALS: BMI 24.7
[2025-01-10] MEDS: Enoxaparin 40 MG/0.4 ML Syringe SC (11:52)
[2025-01-10] MEDS: Lidocaine 5% Patch 1 PATCH TOPICAL (11:53)
[2025-01-10 14:42] VITALS: BP 123/59; PULSE 70; RESP 16; TEMP 36.7; O2SAT 94
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
[2025-01-10] MEDS: Acetaminophen 500 MG Tablet 1000 MG PO ×2 (14:55→21:06)
--- NOTE | 2025-01-10 16:53 | HP.PCM.HOS_ITS ---
HPI - General General Date of Admission: 01/10/25 HPI Narrative VIJI LONDON, is a 84 F who presents to the hospital with increasing lumbar back pain. Is localized to her midline and does not radiate down her legs. She states that about a week ago on she was filling up her 0 turn lawnmower and asked when she noticed the pain, it got more severe the next day so she went to her PCPs office who referred her to urgent care who then sent her to the hospital. While at the hospital she was given some pain medication and was discharged home with a pain management follow-up however she did not recognize the name and did not realize that the provider was local so she never made an appointment. She presented today because of the continued back pain in her lumbar spine. CT scan shows little bit of progression in my opinion of her compression fracture of L1. She was admitted for pain control and MRI imaging. She denies any red flag symptoms with loss of bowel or bladder function and control. [facility] Medical History (Updated 01/10/25 @ 09:[address] 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 Home Medications ?Medication ?Instructions ?Recorded ?Last Taken ?Type furosemide 20 mg tablet 20 mg PO DAILY PRN PRN leg 0 11/29/20 01/10/25 08:00 Rx swelling ##0 20 mg esomeprazole magnesium 40 mg 40 mg PO QAM #90 caps 08/1701/10/25 08:00 Rx capsule,delayed release 40 mg amlodipine 2.5 mg tablet 2.5 mg PO DAILY 01/10/25 08:00 History 2.5 mg calcium carbonate (Oyster Shell 500 mg PO DAILY 01/10/25 08:00 History Calcium) 500 mg lisinopril 20 mg tablet 20 mg PO DAILY 01/10/2512/23 08:00 History 20 mg lysine 500 mg tablet (L-Lysine) 500 mg PO DAILY 01/10/25 08:00 History 500 mg vit C 250 mg-vit E 90 mg-zinc 40 1 tab PO BID eye heal th 01/10/25 01/10/25 08:00 History mg-copper 1 bv-fuwizh-tlgizb 1 TAB capsule (PreserVision AREDS-2) zinc acetate 50 mg (zinc) capsule 50 mg PO DAILY 01/1001/10/25 08:00 History (Galzin) 50 mg Allergy/AdvReac Type Severity Reaction Status Date / Time Latex, Natural Rubber Allergy Mild Verified 01/10/25 07:27 simvastatin (From Zocor) Allergy Mild Verified 01/10/25 07:27 guaifenesin (From Robitussin) Allergy Unknown Verified 01/10/25 07:27 Penicillins Allergy Anaphylaxis Verified 01/10/25 07:27 Sulfa (Sulfonamide Allergy Unknown Verified 01/10/25 07:27 Antibiotics) Family History Mother Colon cancer Father Colon cancer Sister Breast cancer Diabetes CVA (cerebral vascular accident) Cervical cancer Brother Heart disease Daughter COPD (chronic obstructive pulmonary disease) Son Diabetes Surgical History History of cataract extraction History of amputation of right great toe History of appendectomy history of left arm surgery history of hand reconstruction Social History Smoking Status: Never smoker ROS Constitutional Constitutional: Denies chills, fatigue, fever(s) or malaise Eyes Eyes: Denies blurry vision ENT HEENT: Denies headache(s) or nasal discharge Cardiovascular Cardiovascular: Denies chest pain, dyspnea on exertion or syncope Respiratory/Chest Respiratory/Chest: Denies cough, shortness of breath at rest or shortness of breath with exertion Gastrointestinal Gastrointestinal: Denies constipation, diarrhea, nausea or vomiting Genitourinary Genitourinary: Denies dysuria Musculoskeletal Musculoskeletal: Reports back pain Neurologic Neurologic: Denies focal weakness, numbness or tremor(s) Psychiatric Psychiatric: Denies anxiety or depression Vital Signs Vital Signs Vital Signs: 01/10/25 07:24 01/10/25 09:50 01/10/25 10:44 Temperature 97.8 F 98 F 98.1 F Temperature Source Oral Oral Pulse Rate 67 78 63 Respiratory Rate 18 19 H 18 Blood Pressure 114/89 H 147/78 H 157/65 H Blood Pressure Mean 97 101 95 Blood Pressure Source Monitor Blood Pressure Position Semi-Fowlers Blood Pressure Location Right Arm Pulse Ox 95 97 97 Oxygen Delivery Method Room Air Room Air 01/10/25 14:42 Temperature 98.0 F Temperature Source Oral Pulse Rate 70 Respiratory Rate 16 Blood Pressure 123/59 H Blood Pressure Mean 80 Blood Pressure Source Monitor Blood Pressure Position Sitting Blood Pressure Location Left Arm Pulse Ox 94 Oxygen Delivery Method Room Air Weight Weight: 135 lb 5.821 oz Body Mass Index (BMI) 24.7 Physical Exam Narrative General: Alert, Oriented x3, Cooperative, No apparent distress HEENT: Atraumatic, PERRLA, EOMI, Normocephalic Oral: Moist Mucosa Neck: Supple, No JVD Lungs: Diminished, Normal air movement, No rhonchi, No wheeze, No rales Cardiovascular: Regular rate, Regular Rhythm, Normal S1, Normal S2, No murmurs Abdomen: Soft, Non Tender, Non-Distended, No Hepato-splenomegaly Extremities: No edema, Capillary Refill Less than 3 Seconds Skin: No rashes, No breakdown Musculoskeletal: Tenderness to palpation in the midline thoracolumbar region between Neurological: No focal neurological deficits, Motor Exam 5/5 strength throughout, Sensory exam intact to light touch and pain Psych/Mental Status: Normal Affect, Appropriate Results Lab / Micro Data 01/10/25 07:57 01/10/25 07:57 Labs: Laboratory Results - last 24 hr 01/10/25 07:57: WBC 5.5, RBC 4.62, Hgb 13.9, Hct 41.4, MCV 89.6, MCH 30.1, MCHC 33.6, RDW Std Deviation 39.0, RDW Coeff of Catrina 12.0, Plt Count 238, MPV 9.4, Immature Gran % (Auto) 0.200, Neut % (Auto) 61.9, Lymph % (Auto) 25.1, Tyrrell % (Auto) 10.7 H, Eos % (Auto) 1.4, Baso % (Auto) 0.7, Absolute Neuts (auto) 3.4, Absolute Lymphs (auto) 1.39, Nucleated RBC % 0, Sodium 142, Potassium 3.9, C hloride 110 H, Carbon Dioxide 22.2, Anion Gap 10, BUN 21 H, Creatinine 0.87, E stim Creat Clear Calc 43.87 L, Est GFR (MDRD) Non-Af 65, BUN/Creatinine Ratio 23.9 H, Glucose 91, Calcium 9.4, Total Bilirubin 0.25, AST 24, ALT 11, Alkaline Phosphatase 107 H, Total Protein 6.8, Albumin 3.8, Globulin 3.0, Albumin/Globulin Ratio 1.2 01/10/25 09:47: Urine Color Yellow, Urine Clarity Sl. Cloudy, Urine pH 6.0, Ur Specific Rousseau 1.015, Urine Protein 30 H, Urine Glucose (UA) Normal, Urine Ketones Negative, Urine Occult Blood 10 H, Urine Nitrite Negative, Urine Bilirubin Negative, Urine Urobilinogen Normal, Ur Leukocyte Esterase 100 H, Urine RBC 0 SEEN, Urine WBC 0-5 SEEN, Ur Squamous Epith Cells 0-5 SEEN, Ur Transition Epith Cell 0-5 SEEN, Urine Bacteria 0 SEEN, Urine Mucus 0 SEEN Imaging Radiology Impression Lumbar Spine CT 01/10/25 08:15 IMPRESSION: 1. Mild progression of acute to subacute compression fracture at the superior endplate of L1. 2. Minimal retropulsion of the posterior superior wall of L1 resulting in minimal osseous spinal canal stenosis. 3. Grade 1 anterolisthesis of L4 on L5. 4. Moderate multilevel degenerative change, greatest at L5-S1. [facility] Lumbar Spine MRI 01/10/25 10:36 IMPRESSION: 1. Acute progression of [id number] L1 compression fracture with marrow edema. Minimal retropulsion of posterior superior wall of L1 resulting in minimal spinal canal stenosis without mass effect on the spinal cord. 2. Grade 1 anterolisthesis of L4 on L5. 3. Severe L4-5 spinal canal stenosis with compression of the nerve roots within the spinal canal. 4. Multilevel degenerative changes with varying degrees of spinal canal and neural foraminal stenosis, as detailed above. Reading [facility] Assessment & Plan Assessment/Plan (1) Lumbar compression fracture: PLAN: Plan 1. Lumbar compression fracture ? MRI demonstrates severe canal stenosis of L4-5 though she is not having any peripheral symptoms in her lower extremities ? She does have mild to moderate compression fracture with edema indicating acute compression fracture ? Will consult pain management for potential kyphoplasty as an outpatient ? Continue with multimodal pain management ? PT/OT to assist with mobility 2. Essential HTN ? Continue with her home blood pressure medications ? She does take Lasix as needed for edema ? Will monitor and make adjustments as necessary 3. GERD ? Stable ? Continue with PPI DVT: Lovenox 60 minutes was spent on direct patient care, including documentation as well as chart review and collaboration with colleagues Charges/Coding Visit Charges Inpatient E&M: 59452 Init Hosp L2
--- NOTE | 2025-01-10 17:54 | NURSING ---
Dr. Renae. just seen patient, discussed [facility] will attempt kypoplasty outpatient- aware dr renae going back to office to schedule it. talked with primary RN about conversation with ambulating patient after Dr. Renae seen and talked with [facility] U[facility] about getting script med to bed before they close.
--- NOTE | 2025-01-10 18:18 | DCINST_ITS ---
Discharge Instructions Diet Discharge Diet: No restrictions DC O2, CPAP, BIPAP needs Home O2 Discharge instructions: No Dressing / Incision Discharge Activity: Return to Normal Activity Dressing / Incision Call your doctor if you observe: Fever of 101 or Higher, Shortness of breath, Dizziness, Fainting spells, Swelling in the ankles, Chest pain and Increased palpitations (irregular heartbeat) Follow Up Care Test Results: Test results from this visit will be discussed in further detail at your follow- up appointment, if applicable. Discharge Plan Admission Admit Date/Time: 01/10/25 09:47 Attending Provider: Jose David Brown Primary Care Provider: Suyapa Jordan Consulting Providers: Kavitha Renae Discharge Orders/Prescriptions Prescriptions: New oxycodone 5 mg Tablet 5 mg PO Q4H PRN PRN (Reason: Pain Score 4-10) 4 Days Qty: 15 0RF Continued furosemide 20 mg tablet 20 mg PO DAILY PRN PRN (Reason: leg swelling) Qty: 0 0RF lisinopril 20 mg tablet 20 mg PO DAILY amlodipine 2.5 mg tablet 2.5 mg PO DAILY calcium carbonate [Oyster Shell Calcium] 500 mg calcium (1,250 mg) tablet 500 mg PO DAILY Galzin 50 mg (zinc) capsule 50 mg PO DAILY lysine [L-Lysine] 500 mg tablet 500 mg PO DAILY PreserVision AREDS-2 250-90-40-1 mg capsule 1 tab PO BID esomeprazole magnesium 40 mg capsule,delayed release(DR/EC) 40 mg PO QAM Qty: 90 1RF Referrals / Follow Up: Kavitha Renae MD [Med Staff - Active Staff] - 01/11/25 3:00 pm Suyapa Jordan MD [Primary Care Provider] - Within 1 Week Disposition Disposition (needs filled in before D/C Order can be placed): Home, Self Care
[2025-01-10] MEDS: cycloBENZAPRine HCl 5 MG TABLET PO (21:06)
[2025-01-10 21:36] VITALS: BP 162/85; PULSE 66; RESP 18; TEMP 36.6; O2SAT 95
[2025-01-11] MEDS: oxyCODONE 5 MG Tablet PO ×2 (05:43→14:12)
[2025-01-11] MEDS: Acetaminophen 500 MG Tablet 1000 MG PO ×2 (05:43→14:10)
[2025-01-11 06:24] VITALS: BP 143/84; PULSE 67; RESP 18; TEMP 36.6; O2SAT 95
[2025-01-11 07:47] VITALS: BP 132/79; PULSE 62; RESP 16; TEMP 36.7; O2SAT 95
[2025-01-11] MEDS: Calcium (Elemental) 500 MG Tablet PO (08:03)
[2025-01-11] MEDS: Lidocaine 5% Patch 1 PATCH TOPICAL (10:01)
[2025-01-11] MEDS: Lisinopril 20 MG Tablet PO (10:01)
[2025-01-11] MEDS: amLODIPine 2.5 MG Tablet PO (10:01)
[2025-01-11] MEDS: Pantoprazole Sodium 40 MG Tablet PO (10:01)
--- NOTE | 2025-01-11 10:40 | CASEMGMT ---
RN CM into pt room, pt sitting up in bed after getting out of shower. Pt states she was completely indep at home prior to this hospitalization performing all ADL/IADLs and caring for her who has prostate cancer. Pt did not use AD. Pt states she has a FWW at home, walk in shower, CHC and shower chair. Pt declines the need for any HHC at this time. She is aware that if she changes her mind, she may call her PCP once home. Pt will be dc'd to Dr. Renae's office today for a kyphoplasty per her report. Pt denies any homegoing needs at this time.
--- NOTE | 2025-01-11 11:50 | PHA.DC_ITS ---
Pharmacy [facility] Pharmacy Service has performed discharge medication reconciliation and counseling for this patient. 1. OXYCODONE 5MG PO Q4H PRN PAIN The patient's discharge medication list was reviewed for discrepancies and discrepancies were resolved. The patient was counseled on the following discharge medications and changes in medications for homegoing were reviewed. The Reason for Use, instructions for use, and potential side effects were reviewed for all new medications. The patient's questions regarding all of their medications were answered. The patient was able to verbally demonstrate an understanding of their discharge medications. Medications at Discharge Home Medications furosemide 20 mg tablet 20 mg PO DAILY PRN PRN leg swelling ##0 11/29/20 esomeprazole magnesium 40 mg capsule,delayed release 40 mg PO QAM #90 caps 07/06/24 amlodipine 2.5 mg tablet 2.5 mg PO DAILY 01/10/25 calcium carbonate (Oyster Shell Calcium) 500 mg PO DAILY 01/10/25 lisinopril 20 mg tablet 20 mg PO DAILY 01/10/25 lysine 500 mg tablet (L-Lysine) 500 mg PO DAILY 01/10/25 oxycodone 5 mg tablet 5 mg PO Q4H PRN PRN Pain Score 4-10 4 days #15 tabs 01/10/25 vit C 250 mg-vit E 90 mg-zinc 40 mg-copper 1 kg-uqnbma-ygukgl capsule (PreserVision AREDS-2) 1 tab PO BID eye health 01/10/25 zinc acetate 50 mg (zinc) capsule (Galzin) 50 mg PO DAILY 01/10/25
[2025-01-11 14:05] VITALS: BP 136/69; PULSE 75; RESP 16; TEMP 36.6; O2SAT 94
--- NOTE | 2025-01-11 14:12 | CHAPLAIN ---
Type of Pastoral Visit _x__ Initial Visit ___ Follow-up Visit ___ On-call Visit ___ General Patient Visit ___ Spiritual Assessment ___ Family Conference ___ Bereavement ___ Rapid Response ___ Code Blue ___ Other (describe below) Pastoral Care Referral From _x__ Patient ___ Family ___ Nurse ___ Physician ___ Statistical Clerk ___ Political Reporter ___ Other (describe below) Sacrament/Intervention _x__ Active listening ___ Anointing ___ Gnosticism ___ Bereavement ___ Communion _x__ Latosha exploration ___ _x__ Life review _x__ Prayer ___ Reconciliation ___ Sacrament of Sick _x__ Supportive presence ___ Wedding ___ Other (describe below) Pastoral Comments patient is welcoming and she gives brief explanation of how her back has had a fracture; pt talks more about her concern for her who is also present, as he has stage four cancer; spouse speaks of good answers to prayer though on his health; pt expects surgery to relieve her pain; pt and spouse are dependent on each other; a local son also has health problems; another son lives out of state and is not helpful to them; pt more recently transferred to another jewish but has a good latosha in God; pt welcomes time to talk over her situation and for a prayer; pt mentions that she and have been 65 years and have much to be thankful for even when they are in difficult times;
--- NOTE | 2025-01-11 15:38 | PCM.DC.SUM ---
Providers Date of Admission: 01/10/25 Primary Care Physician: Dr. Suyapa Jordan MD Consultations 01/10/25 16:52 Consult: Pain Management Routine Consulting Provider: Kavitha Renae Reason for Consult: L1 compression fracture EMERGENT Consult: No MD Notified: Yes Date Notified: 01/10/25 Time Notified: 16:53 Method of Notification: Verbal Reason For Visit: BACK PAIN Diagnosis Discharge Diagnosis (1) Lumbar compression fracture: Status: Acute Code(s): S32.000A - Wedge compression fracture of unspecified lumbar vertebra, initial encounter for closed fracture Medications at Discharge Home Medications furosemide 20 mg tablet 20 mg PO DAILY PRN PRN leg swelling ##0 11/29/20 esomeprazole magnesium 40 mg capsule,delayed release 40 mg PO QAM #90 caps 07/06/24 amlodipine 2.5 mg tablet 2.5 mg PO DAILY 01/10/25 calcium carbonate (Oyster Shell Calcium) 500 mg PO DAILY 01/10/25 lisinopril 20 mg tablet 20 mg PO DAILY 01/10/25 lysine 500 mg tablet (L-Lysine) 500 mg PO DAILY 01/10/25 oxycodone 5 mg tablet 5 mg PO Q4H PRN PRN Pain Score 4-10 4 days #15 tabs 01/10/25 vit C 250 mg-vit E 90 mg-zinc 40 mg-copper 1 in-trtchb-atwyuq capsule (PreserVision AREDS-2) 1 tab PO BID eye health 01/10/25 zinc acetate 50 mg (zinc) capsule (Galzin) 50 mg PO DAILY 01/10/25 Hospital Course Operations None Procedures None Summary of Care Provided Minutes Spent on Discharge: 33 Hospital Course: Per HPI: VIJI LONDON, is a 84 F who presents to the hospital with increasing lumbar back pain. Is localized to her midline and does not radiate down her legs. She states that about a week ago on she was filling up her 0 turn lawnmower and asked when she noticed the pain, it got more severe the next day so she went to her PCPs office who referred her to urgent care who then sent her to the hospital. While at the hospital she was given some pain medication and was discharged home with a pain management follow-up however she did not recognize the name and did not realize that the provider was local so she never made an appointment. She presented today because of the continued back pain in her lumbar spine. CT scan shows little bit of progression in my opinion of her compression fracture of L1. She was admitted for pain control and MRI imaging. She denies any red flag symptoms with loss of bowel or bladder function and control. Hospital Course: 1. Lumbar compression fracture?84-year-old female was pulling at the gas tank of her 0 turn lawnmower when she felt the sharp pain in her back about a week and a half ago. She presented the next day to the hospital where she was found to have an L1 compression fracture and was given pain meds with the number to pain management however she did not recognize the number for the physician and she did not realize that he was local so she did not make an appointment. She presented back to the hospital with increasing pain and it was noted that the compression fracture had worsened so she was admitted overnight. Pain management was consulted and stated they would be able to do the kyphoplasty in the office the next day. I discussed with her the plan for discharge today and she expressed understanding the risk benefits of going home and is okay with going home. She was sent a prescription for pain meds to her home pharmacy and she will be taken directly from the hospital to the appointment with pain management for the kyphoplasty today. 2. Essential hypertension, GERD chronic medical conditions which complicate her care. Her home medications were continued with appropriate Physical Exam Narrative General: Alert, Oriented x3, Cooperative, No apparent distress HEENT: Atraumatic, PERRLA, EOMI, Normocephalic Oral: Moist Mucosa Neck: Supple, No JVD Lungs: Diminished, Normal air movement, No rhonchi, No wheeze, No rales Cardiovascular: Regular rate, Regular Rhythm, Normal S1, Normal S2, No murmurs Abdomen: Soft, Non Tender, Non-Distended, No Hepato-splenomegaly Extremities: No edema, Capillary Refill Less than 3 Seconds Skin: No rashes, No breakdown Musculoskeletal: Tenderness to palpation in the midline thoracolumbar region between Neurological: No focal neurological deficits, Motor Exam 5/5 strength throughout, Sensory exam intact to light touch and pain Psych/Mental Status: Normal Affect, Appropriate Weight / BMI Weight Weight: 135 lb 5.821 oz Body Mass Index (BMI) 24.7 ABG / Lab / Microbiology Data 01/10/25 07:57 01/10/25 07:57 D/C Instructions Discharge Diet: No restrictions Call your doctor if you observe: Fever of 101 or Higher, Shortness of breath, Dizziness, Fainting spells, Swelling in the ankles, Chest pain and Increased palpitations (irregular heartbeat) DC O2, CPAP, BIPAP Needs Home O2 Discharge instructions: No Meaningful Use Info Meaningful Use Meaningful Use Diagnoses (Choose all that apply): None applicable Ischemic Stroke Statin Dosing Therapy Reference: STATIN DOSE THERAPY REFERENCE: * Patients > 75 years receive moderate or high dose statin therapy. * Patients 75 years or YOUNGER should receive HIGH intensity statin dose unless contraindicated. You will be required to document reason for non-treatment if statin daily dose does not meet guidelines. HIGH DOSE STATIN THERAPY DAILY Atorvastatin > than or = to 40 mg Rosuvastatin > than or = to 20 mg Amlodipine + Atorvastatin > than or = to 2.5/40 mg Ezetimibe + Simvastatin 10/80 mg Simvastatin 80mg Discharge Plan Admission Admit Date/Time: 01/10/25 09:47 Attending Provider: Jose David Brown Primary Care Provider: Suyapa Jordan Consulting Providers: Kavitha Renae Discharge Orders/Prescriptions Prescriptions: New oxycodone 5 mg Tablet 5 mg PO Q4H PRN PRN (Reason: Pain Score 4-10) 4 Days Qty: 15 0RF Continued furosemide 20 mg tablet 20 mg PO DAILY PRN PRN (Reason: leg swelling) Qty: 0 0RF lisinopril 20 mg tablet 20 mg PO DAILY amlodipine 2.5 mg tablet 2.5 mg PO DAILY calcium carbonate [Oyster Shell Calcium] 500 mg calcium (1,250 mg) tablet 500 mg PO DAILY Galzin 50 mg (zinc) capsule 50 mg PO DAILY lysine [L-Lysine] 500 mg tablet 500 mg PO DAILY PreserVision AREDS-2 250-90-40-1 mg capsule 1 tab PO BID esomeprazole magnesium 40 mg capsule,delayed release(DR/EC) 40 mg PO QAM Qty: 90 1RF Referrals / Follow Up: Kavitha Renae MD [Med Staff - Active Staff] - 01/11/25 3:00 pm Suyapa Jordan MD [Primary Care Provider] - Within 1 Week Disposition Disposition (needs filled in before D/C Order can be placed): Home, Self Care Charges/Coding Visit Charges Inpatient E&M: 85454 Disch Hosp >30min
== END 2025-01-11 16:04 | disposition home or self-care (01) ==
LOC: ED 09:06 → MS3 09:55
PROVIDERS: Admitting Provider Family Medicine; Emergency Provider Emergency Medicine; PCP Internal Medicine; Visit Provider Family Medicine
DX: S32.000A Wedge compression fracture of unspecified lumbar vertebra, initial encounter for closed fracture (principal); J44.89 Other specified chronic obstructive pulmonary disease; X50.1XXA Overexertion from prolonged static or awkward postures, initial encounter; M51.360 Other intervertebral disc degeneration, lumbar region with discogenic back pain only; M43.16 Spondylolisthesis, lumbar region; I10 Essential (primary) hypertension; K21.9 Gastro-esophageal reflux disease without esophagitis; Z79.899 Other long term (current) drug therapy
CPT/HCPCS: 72131; 72148; 80053; 81001; 85025; 96372; 96374; 96375; 97162; 97166; 99221; 99285; G0378; J2405

== ENCOUNTER 2025-02-16 13:15 | Outpatient (RCR) | payer MEDICARE, OTHER, SELFPAY ==
[2025-02-09 13:31] VITALS: BP 150/88; PULSE 72; RESP 16; TEMP 36.5; BMI 25.1
[2025-02-16 13:13] VITALS: BP 150/83; PULSE 80; RESP 18; TEMP 36.7; BMI 25.1
== END 2025-02-21 23:59 | disposition home or self-care (01) ==
LOC: WC 13:15
PROVIDERS: PCP Internal Medicine; Referring Provider Internal Medicine; Visit Provider Surgery
DX: L97.222 Non-pressure chronic ulcer of left calf with fat layer exposed (principal); J44.9 Chronic obstructive pulmonary disease, unspecified; S81.802S Unspecified open wound, left lower leg, sequela; X58.XXXS Exposure to other specified factors, sequela; M51.369 Other intervertebral disc degeneration, lumbar region without mention of lumbar back pain or lower extremity pain; L40.9 Psoriasis, unspecified; I10 Essential (primary) hypertension; K57.90 Diverticulosis of intestine, part unspecified, without perforation or abscess without bleeding; R42 Dizziness and giddiness; K44.9 Diaphragmatic hernia without obstruction or gangrene; Z79.899 Other long term (current) drug therapy; Z89.411 Acquired absence of right great toe
CPT/HCPCS: 11042; 87070; 87075; 87077; 87186; 87205; 99213; G0463

== ENCOUNTER 2025-03-01 08:00 | Outpatient (RCR) | payer MEDICARE, OTHER, SELFPAY ==
[2025-02-22 08:07] VITALS: BP 158/70; PULSE 71; RESP 16; TEMP 36.9
--- NOTE | 2025-02-23 08:31 | WC ---
PHOTO 02/22/25 RIGHT LAT LE
--- NOTE | 2025-02-23 15:08 | PCM.WC.HP ---
History of Present Illness Date of Service: 02/22/25 Chief Complaint: Wound of the left distal lateral calf History of Wound: This is an 85-year-old female who presented with a traumatic wound on the distal left lateral calf. The trauma occurred in September, and the traumatic wound failed to heal appropriately. The patient had been treated with oral doses of cephalexin and doxycycline by her primary care physician. She had been using Dreft soaks topically on a daily basis. The patient is a retired [employer]. She volunteers for charitable causes. 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 She claims to ambulate liberally. She denies a history of thrombophlebitis. She denies a history of significant lower extremity swelling. The patient does not smoke. She is not diabetic. [facility] Medical History Non-pressure chronic ulcer of left lower leg with fat layer exposed Vertigo Hypertension Diverticulosis Psoriasis Urticaria Acute gastritis Esophagitis Diverticulitis of colon Chronic cough Hoarseness Overweight HUMPHRIES (dyspnea on exertion) Stage 1 mild COPD by GOLD classification Home Medications Medication Instructions Recorded Last Taken Type furosemide 20 mg tablet 20 mg PO DAILY PRN PRN leg 11/29/20 01/10/25 08:00 Rx swelling ##0 20 mg esomeprazole magnesium 40 mg 40 mg PO QAM #90 caps 07/06/24 01/10/25 08:00 Rx capsule,delayed release 40 mg amlodipine 2.5 mg tablet 2.5 mg PO DAILY 01/10/25 01/10/25 08:00 History 2.5 mg calcium carbonate (Oyster Shell 500 mg PO DAILY 01/10/25 01/10/25 08:00 History Calcium) 500 mg lisinopril 20 mg tablet 20 mg PO DAILY 01/10/25 01/10/25 08:00 History 20 mg lysine 500 mg tablet (L-Lysine) 500 mg PO DAILY 01/10/25 01/10/25 08:00 History 500 mg oxycodone 5 mg tablet 5 mg PO Q4H PRN PRN Pain Score 01/10/25 Unknown Rx 4-10 4 days #15 tabs vit C 250 mg-vit E 90 mg-zinc 40 1 tab PO BID eye health 01/10/25 01/10/25 08:00 History mg-copper 1 [id number] 1 TAB capsule (PreserVision AREDS-2) zinc acetate 50 mg (zinc) capsule 50 mg PO DAILY 01/10/25 01/10/25 08:00 History (Galzin) 50 mg naproxen 500 mg tablet 500 mg PO BID PRN PRN pain 02/09/25 Unknown History oxycodone 5 mg capsule 5 mg PO Q6H PRN PRN pain 02/09/25 Unknown History levofloxacin 500 mg tablet 500 mg PO DAILY Wound Infection 02/15/25 Unknown Rx #10 tabs Allergy/AdvReac Type Severity Reaction Status Date / Time Latex, Natural Rubber Allergy Mild Verified 02/09/25 13:43 simvastatin (From Zocor) Allergy Mild Verified 02/09/25 13:43 guaifenesin (From Robitussin) Allergy Unknown Verified 02/09/25 13:43 Penicillins Allergy Anaphylaxis Verified 02/09/25 13:43 Sulfa (Sulfonamide Allergy Unknown Verified 02/09/25 13:43 Antibiotics) Family History Mother Colon cancer Father Colon cancer Sister Breast cancer Diabetes CVA (cerebral vascular accident) Cervical cancer Brother Heart disease Daughter COPD (chronic obstructive pulmonary disease) Son Diabetes Surgical History History of cataract extraction History of amputation of right great toe History of appendectomy history of left arm surgery history of hand reconstruction Social History Smoking Status: Never smoker Physical Exam Const alert, oriented x3, no apparent distress, average body habitus and well nourished Constitutional Narrative: The patient's BMI is 25.1. General Appearance: cooperative, comfortable, well kempt and well developed Orientation / Consciousness: awake, oriented to person, oriented to place and oriented to time Exam Limitations: no limitations HEENT normocephalic and head/scalp atraumatic Head and Scalp: normal to inspection, normocephalic and atraumatic Face and Sinus: normal facial exam Nose: external nose normal External Ear: external ears normal Eyes EOMs intact bilaterally General Eye: normal appearance of both eyes Resp normal respiratory effort, normal air movement, no retractions and no use of accessory muscles Effort and Inspection: able to speak in complete sentences Skin Wound Narrative: An wound is noted on the patient's distal left lateral calf. The base of the wound demonstrates a small amount of yellow, nonviable, and devitalized tissue, in addition to bioburden. The areas of pink, healthy granulation tissue appear to be increasing. Dimensions are documented elsewhere. Wound margins are well beveled. There is a rim of faint erythema peripherally. The ulceration extends through all layers of the dermis and into the subcutaneous tissues. Neuro oriented x3, CN's II-XII intact bilaterally, moves all extremities, no focal motor deficits and no sensory deficits noted Sensorium / Orientation: awake, alert, oriented to person, oriented to place and oriented to time Speech: speech normal Psych Appearance: grossly normal and appropriate Attitude: calm Activity / Motor Behavior: appropriate eye contact Speech: normal speech Mood & Affect: euthymic mood Thought Process: normal thought process Thought Content: normal thought content Attention / Concentration: attention grossly intact Debridement Note Debridement Note Wound debrided: Distal left lateral calf ulceration Laterality: Left Type of Debridement: Excisional debridement Anesthesia Used: 5% Lidocaine Gel and Cetacaine Depth: Down to and including healthy tissue and in the subcutaneous layer Percentage of wound debrided: 100 Instrument Used: 5mm curette Tissue Removed: Bioburden and nonviable tissue Severity: Fat Layer Exposed Amount of bleeding with debridement: Mild Bleeding Controlled with: Compression and gauze Patient tolerated procedure: Patient tolerated procedure well Post-Debridement Measurements and Additional Note: Post-Debridement Measurements/Treatment - Nurse 1 - General Ulcer Assessment Start: 02/22/25 08:07 Freq: Status: Active Protocol: INGRIS Activity Type Activity Date Activity User E-sign Co-sign Detail Recorded Client Recorded Date Recorded By Document 02/22/25 08:07 [facility] [id number] 02/22/25 08:10 [facility] 02/22/25 08:07 - Today's Visit Information Type of service Follow-up Visit (Physician/SENIOR VALIDATION ENGINEER ) Arrival Mode Ambulatory Transfer Assistance None Patient Identification Verified (Name & Yes ) Patient Requires Transmission-Based No Precautions Vital Signs Temperature (97.8 F-99.1 F) 98.4 F Temperature Source Temporal Pulse Rate (60-100) 71 Pulse Location Monitor Respiratory Rate (12-18) 16 Respiratory rate source Observation Oxygen Delivery Method Room Air Blood Pressure (90/60-120/80) 158/70 H Blood Pressure Mean 99 Source Monitor Position Sitting Blood Pressure Location Right Arm History Since Last Visit- (Skip if this is Patient's initial visit) Have you changed medications since your No last visit? Any new allergies or adverse reactions No Had a fall/change in ADL's that may No increase risk of falls Signs or symptoms of abuse and/or No neglect since last visit Have you been in the hospital since your No last visit? Has dressing in place as prescribed Yes Has compression in place as prescribed Yes Has offloadiing in place as prescribed N/A Experienced any changes in pain level or No management Left Footwear Regular Shoe Right Footwear Regular Shoe Pain Scale: 0-10 Numeric Is Patient Pain Free? Yes WC - Nurse 1 - General Ulcer Measurement Start: 02/22/25 08:07 Freq: Status: Active Protocol: Activity Type Activity Date Activity User E-sign Co-sign Detail Recorded Client Recorded Date Recorded By Document 02/22/25 08:07 [facility] [id number] 02/22/25 08:10 [facility] 02/22/25 08:07 Wound Center Nurse 1 #1 LT LAT LE -Combined with other wound No -Current Size (cm) - Length 3.2 -Current Size (cm) - Width 2 -Current Size (cm) - Depth 0.1 -Total Square Cm 6.4 -Date of Last Picture (Recall this 02/22/25 field) -Photo Taken Yes -Tunneling No -Undermining/Tunneling No -Circular Undermining No -Exudate Amt Medium -Exudate Type Serosanguineous -Wound Margin Flat & Intact -Granulation Amt Medium (34-66%) -Granulation Quality Fernley -Slough/Fibrin Yes -Necrosis Amt Medium (34-66%) -Necrotic Tissue Type Adherent Slough -Texture (Terese-wound Skin Appearance) Assessed -Moisture (Terese-wound Skin Appearance) Assessed -Color (Terese-wound Skin Appearance) Assessed -Temperature (Terese-wound Skin No Abnormality Appearance) (Pt Warm) -Tenderness on Palpation (Terese-wound No Skin Appearance) -Ulcer Cleansing Rinsed/ Irrigated with Saline -Foul Odor after Cleansing No -Anesthetic Used 5% Lidocaine Gel WC - Nurse 2 - General Ulcer CM Notes Start: 02/22/25 08:07 Freq: Status: Active Protocol: Activity Type Activity Date Activity User E-sign Co-sign Detail Recorded Client Recorded Date Recorded By Document 02/22/25 08:18 [id number] 02/22/25 08:21 DS 02/22/25 08:18 Wound Center Nurse 2 -Time 08:18 -Correct Patient Yes -Correct Side, Site, Position Yes -Correct Procedure Yes -Procedure Performed Yes -Type of Procedure Debridement -Clinical Debridement Subcutaneous -Tissue Removed Subcutaneous -Post Debridement (cm) - Length 3.4 -Post Debridement (cm) - Width 2.0 -Post Debridement (cm) - Depth 0.2 -Total Square (Post) (cm) 6.80 -Area of Debridement (cm) - Length 3.4 -Area of Debridement (cm) - Width 2.0 -Total Square (Area) (cm) 6.80 -Tunneling No -Undermining/Tunneling No -Circular Undermining No -Wound/Ulcer Outcome Not Healed -Ulcer Cleansing gauze -Foul Odor after Cleansing No -Bioengineered Tissue No -Bleeding Controlled with Pressure -Treatment Response Procedure Tolerated Well -Debridement - Subq, 1st 20sq cm Yes Pain Scale: 0-10 Numeric Is Patient Pain Free? No left lat leg -Description Sharp,Throbbing -Intensity 6 -Duration (hours) Chronic -Pain Aggravating Factors Debridement -Alleviating Factors/Interventions Will continue to monitor, Emotional Support -Comments cetacaine spray used. WC - Nurse 3 - General Ulcer D/C NN Start: 02/22/25 08:07 Freq: Status: Active Protocol: Activity Type Activity Date Activity User E-sign Co-sign Detail Recorded Client Recorded Date Recorded By Document 02/22/25 08:29 [facility] [id number] 02/22/25 08:30 [facility] 02/22/25 08:29 Wound Care Center Nurse 3 #1 LT LAT LE -Ulcer Cleansing Rinsed/ Irrigated with Saline -Foul Odor after Cleansing No -Other Dressing santyl, moistened gauze -Primary Dressing Covered/Secured with Dry Gauze & Roll Gauze, Secured with Tape -Other Covering abd Treatment Response Procedure Tolerated Well Pain Scale: 0-10 Numeric Is Patient Pain Free? Yes WC - Visit Discharge Discharge Condition Stable Ambulatory Status Ambulatory Transportation Private Auto Charges/Coding Procedures Integumentary [id number]: [id number] Saba subq tissue 20 sq cm/< Assessment/Plan Assessment/Plan (1) Non-pressure chronic ulcer of left lower leg with fat layer exposed: CODE(S): L97.922 - Non-pressure chronic ulcer of unspecified part of left lower leg with fat layer exposed (2) Lumbar degenerative disc disease: CODE(S): M51.369 - Other intervertebral disc degeneration, lumbar region without mention of lumbar back pain or lower extremity pain (3) Diverticulosis: CODE(S): K57.90 - Diverticulosis of intestine, part unspecified, without perforation or abscess without bleeding (4) Hiatal hernia with GERD without esophagitis: CODE(S): K44.9 - Diaphragmatic hernia without obstruction or gangrene; K21.9 - Gastro-esophageal reflux disease without esophagitis (5) History of cataract extraction: CODE(S): Z98.49 - Cataract extraction status, unspecified eye (6) History of amputation of right great toe: CODE(S): Z98.890 - Other specified postprocedural states; Z89.411 - Acquired absence of right great toe (7) History of appendectomy: CODE(S): Z98.890 - Other specified postprocedural states; Z90.49 - Acquired absence of other specified parts of digestive tract (8) history of left arm surgery: (9) history of hand reconstruction: (10) HUMPHRIES (dyspnea on exertion): CODE(S): R06.09 - Other forms of dyspnea (11) Stage 1 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 The ulceration resulted from trauma which occurred several months ago. The patient had been previously treated with several courses of oral antibiotics, including cephalexin and doxycycline. She had recently been using Dreft soaks topically on a daily basis. An excisional debridement has been performed today. Swab cultures were obtained on February 11, 2025, the results of which indicated the growth of Staphylococcus aureus and Proteus mirabilis. The patient was placed on Levaquin 500 milligrams p.o. daily for a total of 10 days, which is nearly complete. We are to continue the use of collagenase Santyl topically, which will be applied on a daily basis. The patient has been instructed in appropriate means of application. The patient has been advised to optimize her nutritional intake. She has also been advised to keep her lower extremities elevated as much as possible, and to avoid prolonged idle sitting, in an effort to avoid swelling in her lower extremities. It is felt that the Dreft soaks have been unproductive, a matter which has been conveyed to the patient. The patient is to return in 1 week for reevaluation. Total time: 24 minutes
[2025-03-01 08:03] VITALS: BP 149/76; PULSE 71; RESP 16; TEMP 36.7
--- NOTE | 2025-03-02 08:40 | WC ---
PHOTO 03/01/25 LEFT LATERAL LEG
--- NOTE | 2025-03-06 16:28 | PCM.WC.HP ---
History of Present Illness Date of Service: 03/01/25 Chief Complaint: Wound of the left distal lateral calf History of Wound: This is an 85-year-old female who presented with a traumatic wound on the distal left lateral calf. The trauma occurred in September, and the traumatic wound failed to heal appropriately. The patient had been treated with oral doses of cephalexin and doxycycline by her primary care physician. She had been using Dreft soaks topically on a daily basis. The patient is a retired [employer]. She volunteers for charitable causes. 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 She claims to ambulate liberally. She denies a history of thrombophlebitis. She denies a history of significant lower extremity swelling. The patient does not smoke. She is not diabetic. [facility] Medical History Non-pressure chronic ulcer of left lower leg with fat layer exposed Vertigo Hypertension Diverticulosis Psoriasis Urticaria Acute gastritis Esophagitis Diverticulitis of colon Chronic cough Hoarseness Overweight HUMPRHIES (dyspnea on exertion) Stage 1 mild COPD by GOLD classification Home Medications Medication Instructions Recorded Last Taken Type furosemide 20 mg tablet 20 mg PO DAILY PRN PRN leg 11/29/20 01/10/25 08:00 Rx swelling ##0 20 mg esomeprazole magnesium 40 mg 40 mg PO QAM #90 caps 07/06/24 01/10/25 08:00 Rx capsule,delayed release 40 mg amlodipine 2.5 mg tablet 2.5 mg PO DAILY 01/10/25 01/10/25 08:00 History 2.5 mg calcium carbonate (Oyster Shell 500 mg PO DAILY 01/10/25 01/10/25 08:00 History Calcium) 500 mg lisinopril 20 mg tablet 20 mg PO DAILY 01/10/25 01/10/25 08:00 History 20 mg lysine 500 mg tablet (L-Lysine) 500 mg PO DAILY 01/10/25 01/10/25 08:00 History 500 mg oxycodone 5 mg tablet 5 mg PO Q4H PRN PRN Pain Score 01/10/25 Unknown Rx 4-10 4 days #15 tabs vit C 250 mg-vit E 90 mg-zinc 40 1 tab PO BID eye health 01/10/25 01/10/25 08:00 History mg-copper 1 [id number] 1 TAB capsule (PreserVision AREDS-2) zinc acetate 50 mg (zinc) capsule 50 mg PO DAILY 01/10/25 01/10/25 08:00 History (Galzin) 50 mg naproxen 500 mg tablet 500 mg PO BID PRN PRN pain 02/09/25 Unknown History oxycodone 5 mg capsule 5 mg PO Q6H PRN PRN pain 02/09/25 Unknown History levofloxacin 500 mg tablet 500 mg PO DAILY Wound Infection 02/15/25 Unknown Rx #10 tabs Allergy/AdvReac Type Severity Reaction Status Date / Time Latex, Natural Rubber Allergy Mild Verified 02/09/25 13:43 simvastatin (From Zocor) Allergy Mild Verified 02/09/25 13:43 guaifenesin (From Robitussin) Allergy Unknown Verified 02/09/25 13:43 Penicillins Allergy Anaphylaxis Verified 02/09/25 13:43 Sulfa (Sulfonamide Allergy Unknown Verified 02/09/25 13:43 Antibiotics) Family History Mother Colon cancer Father Colon cancer Sister Breast cancer Diabetes CVA (cerebral vascular accident) Cervical cancer Brother Heart disease Daughter COPD (chronic obstructive pulmonary disease) Son Diabetes Surgical History History of cataract extraction History of amputation of right great toe History of appendectomy history of left arm surgery history of hand reconstruction Social History Smoking Status: Never smoker Physical Exam Const alert, oriented x3, no apparent distress, average body habitus and well nourished Constitutional Narrative: The patient's BMI is 25.1. General Appearance: cooperative, comfortable, well kempt and well developed Orientation / Consciousness: awake, oriented to person, oriented to place and oriented to time Exam Limitations: no limitations HEENT normocephalic and head/scalp atraumatic Head and Scalp: normal to inspection, normocephalic and atraumatic Face and Sinus: normal facial exam Nose: external nose normal External Ear: external ears normal Eyes EOMs intact bilaterally General Eye: normal appearance of both eyes Resp normal respiratory effort, normal air movement, no retractions and no use of accessory muscles Effort and Inspection: able to speak in complete sentences Skin Wound Narrative: A wound is noted on the patient's distal left lateral calf. The base of the wound demonstrates a moderate amount of slough, in addition to bioburden. The areas of pink, healthy granulation tissue appear to be increasing. Dimensions are documented elsewhere. The wound is slightly smaller than noted the previous week. Wound margins are well beveled. There is a rim of faint erythema peripherally. The ulceration extends through all layers of the dermis and into the subcutaneous tissues. Neuro oriented x3, CN's II-XII intact bilaterally, moves all extremities, no focal motor deficits and no sensory deficits noted Sensorium / Orientation: awake, alert, oriented to person, oriented to place and oriented to time Speech: speech normal Psych Appearance: grossly normal and appropriate Attitude: calm Activity / Motor Behavior: appropriate eye contact Speech: normal speech Mood & Affect: euthymic mood Thought Process: normal thought process Thought Content: normal thought content Attention / Concentration: attention grossly intact Debridement Note Debridement Note Wound debrided: Distal left lateral calf ulceration Laterality: Left Type of Debridement: Excisional debridement Anesthesia Used: 5% Lidocaine Gel and Cetacaine Depth: Down to and including healthy tissue and in the subcutaneous layer Percentage of wound debrided: 100 Instrument Used: 5mm curette Tissue Removed: Bioburden and slough Severity: Fat Layer Exposed Amount of bleeding with debridement: Mild Bleeding Controlled with: Compression and gauze Patient tolerated procedure: Patient tolerated procedure well Post-Debridement Measurements and Additional Note: Post-Debridement Measurements/Treatment - Nurse 1 - General Ulcer Assessment Start: 02/22/25 08:07 Freq: Status: Active Protocol: INGRIS Activity Type Activity Date Activity User E-sign Co-sign Detail Recorded Client Recorded Date Recorded By Document 02/22/25 08:07 [facility] [id number] 02/22/25 08:10 [facility] Document 03/01/25 08:03 [facility] [id number] 03/01/25 08:07 [facility] 02/22/25 03/01/25 08:07 08:03 - Today's Visit Information Type of service Follow-up Visit Follow-up Visit (Physician/CLIMATOLOGIST (Physician/CLIMATOLOGIST ) ) Arrival Mode Ambulatory Ambulatory Transfer Assistance None None Patient Identification Verified (Name & Yes Yes ) Patient Requires Transmission-Based No No Precautions Vital Signs Temperature (97.8 F-99.1 F) 98.4 F 98.1 F Temperature Source Temporal Temporal Pulse Rate (60-100) 71 71 Pulse Location Monitor Monitor Respiratory Rate (12-18) 16 16 Respiratory rate source Observation Observation Oxygen Delivery Method Room Air Room Air Blood Pressure (90/60-120/80) 158/70 H 149/76 H Blood Pressure Mean 99 100 Source Monitor Monitor Position Sitting Sitting Blood Pressure Location Right Arm Left Arm History Since Last Visit- (Skip if this is Patient's initial visit) Have you changed medications since your No No last visit? Any new allergies or adverse reactions No No Had a fall/change in ADL's that may No No increase risk of falls Signs or symptoms of abuse and/or No No neglect since last visit Have you been in the hospital since your No No last visit? Has dressing in place as prescribed Yes Yes Has compression in place as prescribed Yes N/A Has offloadiing in place as prescribed N/A N/A Experienced any changes in pain level or No No management Left Footwear Regular Shoe Regular Shoe Right Footwear Regular Shoe Regular Shoe Pain Scale: 0-10 Numeric Is Patient Pain Free? Yes Yes - Nurse 1 - General Ulcer Measurement Start: 02/22/25 08:07 Freq: Status: Active Protocol: Activity Type Activity Date Activity User E-sign Co-sign Detail Recorded Client Recorded Date Recorded By Document 02/22/25 08:07 [facility] [id number] 02/22/25 08:10 [facility] Document 03/01/25 08:03 [facility] [id number] 03/01/25 08:07 [facility] 02/22/25 03/01/25 08:07 08:03 Wound Center Nurse 1 #1 LT LAT LE -Combined with other wound No No -Current Size (cm) - Length 3.2 3.4 -Current Size (cm) - Width 2 1.8 -Current Size (cm) - Depth 0.1 0.1 -Total Square Cm 6.4 6.12 -Date of Last Picture (Recall this 02/22/25 03/01/25 field) -Photo Taken Yes Yes -Epithelialization Small 1-33% -Tunneling No No -Undermining/Tunneling No No -Circular Undermining No No -Exudate Amt Medium Medium -Exudate Type Serosanguineous Serous -Wound Margin Flat & Intact Flat & Intact -Granulation Amt Medium (34-66%) Small (1-33%) -Granulation Quality Slinger Red -Slough/Fibrin Yes Yes -Necrosis Amt Medium (34-66%) Large (67-100%) -Necrotic Tissue Type Adherent Slough Adherent Slough -Texture (Terese-wound Skin Appearance) Assessed Assessed, Scarring -Moisture (Terese-wound Skin Appearance) Assessed Assessed -Color (Terese-wound Skin Appearance) Assessed Assessed -Temperature (Terese-wound Skin No Abnormality No Abnormality Appearance) (Pt Warm) (Pt Warm) -Tenderness on Palpation (Terese-wound No No Skin Appearance) -Ulcer Cleansing Rinsed/ Rinsed/ Irrigated with Irrigated with Saline Saline -Foul Odor after Cleansing No No -Anesthetic Used 5% Lidocaine 5% Lidocaine Gel Gel WC - Nurse 2 - General Ulcer CM Notes Start: 02/22/25 08:07 Freq: Status: Active Protocol: Activity Type Activity Date Activity User E-sign Co-sign Detail Recorded Client Recorded Date Recorded By Document 02/22/25 08:18 DS [id number] 02/22/25 08:21 DS Document 03/01/25 08:17 DS [id number] 03/01/25 08:20 DS 02/22/25 03/01/25 08:18 08:17 Wound Center Nurse 2 #1 LT LAT LE -Time 08:18 08:17 -Correct Patient Yes Yes -Correct Side, Site, Position Yes Yes -Correct Procedure Yes Yes -Procedure Performed Yes Yes -Type of Procedure Debridement Debridement -Clinical Debridement Subcutaneous Subcutaneous -Tissue Removed Subcutaneous Subcutaneous -Post Debridement (cm) - Length 3.4 3.5 -Post Debridement (cm) - Width 2.0 1.9 -Post Debridement (cm) - Depth 0.2 0.2 -Total Square (Post) (cm) 6.80 6.65 -Area of Debridement (cm) - Length 3.4 3.5 -Area of Debridement (cm) - Width 2.0 1.9 -Total Square (Area) (cm) 6.80 6.65 -Tunneling No No -Undermining/Tunneling No No -Circular Undermining No No -Wound/Ulcer Outcome Not Healed Not Healed -Ulcer Cleansing gauze gauze -Foul Odor after Cleansing No No -Bioengineered Tissue No No -Bleeding Controlled with Pressure Pressure -Treatment Response Procedure Procedure Tolerated Well Tolerated Well -Debridement - Subq, 1st 20sq cm Yes Yes Pain Scale: 0-10 Numeric Is Patient Pain Free? No No left lat leg -Description Sharp,Throbbing Sharp,Throbbing -Intensity 6 8 -Duration (hours) Chronic Chronic -Pain Behavior Moaning, Guarding, Withdrawal from Touch -Pain Aggravating Factors Debridement Debridement -Alleviating Factors/Interventions Will continue Will continue to monitor, to monitor Emotional Support -Comments cetacaine spray cetecaine used used. WC - Nurse 3 - General Ulcer D/C NN Start: 02/22/25 08:07 Freq: Status: Active Protocol: Activity Type Activity Date Activity User E-sign Co-sign Detail Recorded Client Recorded Date Recorded By Document 02/22/25 08:29 [facility] [id number] 02/22/25 08:30 [facility] Document 03/01/25 08:31 KW [id number] 03/01/25 08:34 KW 02/22/25 03/01/25 08:29 08:31 Wound Care Center Nurse 3 #1 LT LAT LE -Ulcer Cleansing Rinsed/ Irrigated with Saline -Foul Odor after Cleansing No -Other Dressing santyl, pt santyl moistened gauze -Primary Dressing Covered/Secured with Dry Gauze & Dry Gauze & Roll Gauze, Roll Gauze, Secured with Secured with Tape Tape -Other Covering abd Treatment Response Procedure Tolerated Well Pain Scale: 0-10 Numeric Is Patient Pain Free? Yes Yes WC - Visit Discharge Discharge Condition Stable Stable Ambulatory Status Ambulatory Ambulatory Transportation Private Auto Private Auto Medication Reconcilliation completed & No provided to patient/care provider Clinical Summary of Care Provided Yes Charges/Coding Procedures Integumentary [id number]: [id number] Saba subq tissue 20 sq cm/< Assessment/Plan Assessment/Plan (1) Non-pressure chronic ulcer of left lower leg with fat layer exposed: CODE(S): L97.922 - Non-pressure chronic ulcer of unspecified part of left lower leg with fat layer exposed (2) Lumbar degenerative disc disease: CODE(S): M51.369 - Other intervertebral disc degeneration, lumbar region without mention of lumbar back pain or lower extremity pain (3) Diverticulosis: CODE(S): K57.90 - Diverticulosis of intestine, part unspecified, without perforation or abscess without bleeding (4) Hiatal hernia with GERD without esophagitis: CODE(S): K44.9 - Diaphragmatic hernia without obstruction or gangrene; K21.9 - Gastro-esophageal reflux disease without esophagitis (5) History of cataract extraction: CODE(S): Z98.49 - Cataract extraction status, unspecified eye (6) History of amputation of right great toe: CODE(S): Z98.890 - Other specified postprocedural states; Z89.411 - Acquired absence of right great toe (7) History of appendectomy: CODE(S): Z98.890 - Other specified postprocedural states; Z90.49 - Acquired absence of other specified parts of digestive tract (8) history of left arm surgery: (9) history of hand reconstruction: (10) HUMPHRIES (dyspnea on exertion): CODE(S): R06.09 - Other forms of dyspnea (11) Stage 1 mild COPD by GOLD classification: CODE(S): J44.9 - Chronic obstructive pulmonary disease, unspecified (12) Hypertension: CODE(S): I10 - Essential (primary) hypertension (13) Vertigo: CODE(S): R42 - Dizziness and giddiness (14) Psoriasis: CODE(S): L40.9 - Psoriasis, unspecified PLAN: Plan This is an 85-year-old functional and active female who presented with a chronic, nonhealing wound on the distal portion of her left lateral calf. The wound resulted from trauma which occurred several months ago. The patient had been previously treated with several courses of oral antibiotics, including cephalexin and doxycycline. She had recently been using Dreft soaks topically on a daily basis. An excisional debridement has been performed today. Swab cultures were obtained on February 11, 2025, the results of which indicated the growth of Staphylococcus aureus and Proteus mirabilis. The patient was placed on Levaquin 500 milligrams p.o. daily for a total of 10 days, which has been completed. We are to continue the use of collagenase Santyl topically, which will be applied on a daily basis. The patient has been instructed in appropriate means of application. The patient has been advised to optimize her nutritional intake. She has also been advised to keep her lower extremities elevated as much as possible, and to avoid prolonged idle sitting, in an effort to avoid swelling in her lower extremities. The patient is to return in 1 week for reevaluation. Total time: 25 minutes
== END 2025-03-24 14:43 | disposition home or self-care (01) ==
LOC: WC 08:00
PROVIDERS: PCP Internal Medicine; Referring Provider Internal Medicine; Visit Provider Surgery
DX: L97.222 Non-pressure chronic ulcer of left calf with fat layer exposed (principal); S81.802S Unspecified open wound, left lower leg, sequela; X58.XXXS Exposure to other specified factors, sequela; Z89.411 Acquired absence of right great toe; L40.9 Psoriasis, unspecified; M79.89 Other specified soft tissue disorders
CPT/HCPCS: 11042

== ENCOUNTER → 2025-05-31 | Outpatient (CLI) | payer MEDICARE, OTHER, SELFPAY | END | disposition home or self-care (01) | LOC: LABSPEC 18:53 | PROVIDERS: PCP Internal Medicine; Visit Provider Podiatrist | DX: L97.922 Non-pressure chronic ulcer of unspecified part of left lower leg with fat layer exposed (principal) | CPT/HCPCS: 87070; 87077; 87186; 87205 ==

== ENCOUNTER 2025-06-10 17:19 | Emergency (ER) | payer MEDICARE, OTHER, SELFPAY ==
[2025-06-10 17:21] VITALS: BP 141/115; PULSE 84; RESP 18; TEMP 36.6; O2SAT 95
[2025-06-10 17:25] VITALS: BP 137/85
[2025-06-10 17:35] VITALS: BMI 25.9
--- NOTE | 2025-06-10 18:21 | CT_ITS ---
EXAM: CT BRAIN/HEAD WITHOUT CONTRAST; SPINE CERVICAL WITHOUT CONTRAST CLINICAL HISTORY: HEAD TRAUMA COMPARISON: 04/16/2024 TECHNIQUE: Noncontrast CT images of the head and cervical spine with multiplanar reconstructions. Dose reduction techniques were used including intermediate exposure control (AEC),iterative reconstruction technique, and/or mA and/or KV dose adjustments based on patient's size. FINDINGS: HEAD: No acute intracranial hemorrhage, extra-axial collection, mass effect or evidence of acute infarct. Mild-moderate generalized brain parenchymal volume loss and chronic microangiopathic changes. Atherosclerotic vascular calcifications. Absent white earth ocular lenses. Small posterior right parietal scalp contusion/hematoma with laceration. No acute skull base or calvarial fracture. Well-aerated paranasal sinuses and bilateral mastoid air cells. Marginally calcified periapical odontogenic cyst protruding into the right maxillary sinus noted. CERVICAL SPINE: No acute fracture or subluxation. Positional and/or degenerative straightening of the cervical lordosis. Multilevel spondylotic changes with varying degrees of disc space narrowing, multiple small Schmorl's nodes and/or subchondral cysts, anterior osteophytosis, uncovertebral spurring and hypertrophic facet arthropathy. Prominent dorsal disc osteophyte complex formations at C4-5, C5-6, and C6-7, with associated mild-moderate spinal canal narrowing at these levels. No prevertebral soft tissue swelling. Atherosclerotic vascular calcifications. CT/Brain/Head without Contrast IMPRESSION: 1. No acute intracranial abnormality. 2. Mild posterior right parietal scalp contusion/hematoma with laceration. 3. No acute C-spine fracture or subluxation. Multilevel spondylotic changes. Reading Location: [id number]
--- NOTE | 2025-06-10 18:21 | CT_ITS ---
EXAM: CT BRAIN/HEAD WITHOUT CONTRAST; SPINE CERVICAL WITHOUT CONTRAST CLINICAL HISTORY: HEAD TRAUMA COMPARISON: 04/16/2024 TECHNIQUE: Noncontrast CT images of the head and cervical spine with multiplanar reconstructions. Dose reduction techniques were used including intermediate exposure control (AEC),iterative reconstruction technique, and/or mA and/or KV dose adjustments based on patient's size. FINDINGS: HEAD: No acute intracranial hemorrhage, extra-axial collection, mass effect or evidence of acute infarct. Mild-moderate generalized brain parenchymal volume loss and chronic microangiopathic changes. Atherosclerotic vascular calcifications. Absent havasupai ocular lenses. Small posterior right parietal scalp contusion/hematoma with laceration. No acute skull base or calvarial fracture. Well-aerated paranasal sinuses and bilateral mastoid air cells. Marginally calcified periapical odontogenic cyst protruding into the right maxillary sinus noted. CERVICAL SPINE: No acute fracture or subluxation. Positional and/or degenerative straightening of the cervical lordosis. Multilevel spondylotic changes with varying degrees of disc space narrowing, multiple small Schmorl's nodes and/or subchondral cysts, anterior osteophytosis, uncovertebral spurring and hypertrophic facet arthropathy. Prominent dorsal disc osteophyte complex formations at C4-5, C5-6, and C6-7, with associated mild-moderate spinal canal narrowing at these levels. No prevertebral soft tissue swelling. Atherosclerotic vascular calcifications. CT/Spine Cervical without Contras IMPRESSION: 1. No acute intracranial abnormality. 2. Mild posterior right parietal scalp contusion/hematoma with laceration. 3. No acute C-spine fracture or subluxation. Multilevel spondylotic changes. Reading Location: [id number]
[2025-06-10] MEDS: Lidocaine 1% /Epi 1:100 (20ml) 20 ML Vial 10 ML INFILT (18:51)
--- OUTSIDE RECORDS SUMMARY | 2025-06-10 19:10 | XMS RPT_ITS | CCD ---
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 Da Hardwick Primary Care Provider Dr. Da Castro Referring Provider Friend, Dr. Mederos Attending Provider Jairo FIRER TUNNEL KILN, FIRER TUNNEL KILN-C Ale Olvera Attending Provider Da Castro MD Primary Care Provider Varun Aguilar RN Unavailable Dr. Da Hardwick Primary Care Provider Dr. 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 Da Castro MD Primary Care Provider Dr. Johnson Osborne DO Emergency Provider Dr. Johnson Osborne DO Attending Provider Dr. Gus Garza DO Emergency Provider Kevin HUDDLESTON, Dr. Jose David Matthew Admit Provider Kevin HUDDLESTON, Dr. Jose David Matthew Attending Provider Oc HUDDLESTON, Dr. Plummer Other Provider Kevin HUDDLESTON, Dr. Jose David Matthew Other Provider Julian HUDDLESTON, Dr. Dale Referring Provider Nury HUDDLESTON, Dr. Frankie Pires Attending Provider Nury HUDDLESTON, Dr. Frankie Pires Other Provider GANTA, DA Primary Care Unavailable OLDER, MONA Attending Unavailable GANTA, DA Primary Care Unavailable SUNDEEP CASTANO Attending Unavailable GANTA, DA Primary Care Unavailable GANTA, DA Attending Unavailable GANTA, DA Referring Unavailable GANTA, DA Primary Care Unavailable GANTA, DA Primary Care Unavailable GUY BARTON Attending Unavailable SELF Referring Unavailable GANTA, DA Primary Care Unavailable GANTA, DA Attending Unavailable GANTA, DA Referring Unavailable GANTA, DA Primary Care Unavailable GANTA, DA Primary Care Unavailable GANTA, DA Referring Unavailable GANTA, DA Primary Care Unavailable SELF Referring Unavailable GANTA, DA Attending Unavailable OLDER, MONA Attending Unavailable GANTA, DA Primary Care Unavailable OLDER, MONA Attending Unavailable GANTA, DA Primary Care Unavailable OLDER, MONA Attending Unavailable GANTA, DA Primary Care Unavailable Ganta, Da Referring Unavailable Ganta, Da Primary Care Unavailable Frankie Arrington Attending Unavailable Jose David Brown F Attending Unavailable Basalallyson Ayted Consulting Unavailable EdeoniGio collinsJose David F Admitting Unavailable Ganta, Da Primary Care Unavailable EdeoniGio collinsJose David F Attending Unavailable Ganta, Da Primary Care Unavailable BasalKavitha valadez Consulting Unavailable Edeonis, Jose David F Admitting Unavailable Kotsonis, Jose David F Consulting Unavailable Ganta, Da Referring Unavailable Gatito Reyes Attending Unavailable Ganta, Da Primary Care Unavailable Ganta, Da Referring Unavailable Ganta, Da Primary Care Unavailable Frankie Arrington Attending Unavailable Johnson Osborne Attending Unavailable Ganta, Da Primary Care Unavailable Bita Murphy Attending Unavailable [facility] Unavailable Allergies Allergy Classification Reported Allergen(s) Allergy Type Date of Onset Reaction(s) Facility (3 sources) guaiFENesin drug allergy 4 [facility] Work Phone: (6 sources) natural latex rubber; Translations: [LATEX] allergy to substance 6 itchy, blister [facility] Work Phone: (3 sources) Penicillins (Antibiotic) drug allergy [facility] Work Phone: (6 sources) simvastatin drug allergy 4 myalgia [facility] Work Phone: (3 sources) Sulfonamides (Antibiotic) drug allergy [facility] Work Phone: (20 sources) WASPS; Translations: [WASPS] drug allergy 4 Other: See Comments, Swelling [facility] Work Phone: (20 sources) ELASTIC; Translations: [ELASTIC] drug allergy 5 Rash [facility] Work Phone: (20 sources) Codeine / guaiFENesin; Translations: [CODEINE-GUAIFEN ESIN] Drug Allergy 5 Anaphylaxis [facility] Work Phone: (13 sources) Penicillins; Translations: [PENICILLINS] Drug Allergy 5 Anaphylaxis [facility] (20 sources) Simvastatin; Translations: [SIMVASTATIN] Drug Allergy 0 Intolerance, Myalgia [facility] Work Phone: (20 sources) Sulfonamides (Antibiotic); Translations: [SULFA (SULFONAMIDE ANTIBIOTICS)] Propensity to adverse reactions to drug 5 Intolerance [facility] Work Phone: (20 sources) Thiazides; Translations: [THIAZIDES] Drug Intolerance 6 Intolerance [facility] Work Phone: (20 sources) Gloves, Latex; Translations: [GLOVES, LATEX] Propensity to adverse reactions 6 Rash [facility] Work Phone: (10 sources) guaiFENesin Drug Allergy 2 Unknown [facility] (11 sources) natural latex rubber; Translations: [Latex, Natural Rubber] Allergy to substance 2 [facility] (20 sources) Penicillins Drug Allergy 5 Anaphylaxis [facility] (20 sources) Thiazides Drug Intolerance 6 Intolerance [facility] Work Phone: (8 sources) Penicillins Allergy to substance 2 Anaphylaxis [facility] (8 sources) Sulfonamides (Antibiotic) Allergy to substance 2 Unknown [facility] (13 sources) Penicillins Drug Allergy 5 Anaphylaxis [facility] (2 sources) Thiazides Drug Intolerance 6 Intolerance [facility] (1 source) guaiFENesin Drug Allergy 5 [facility] Repository (1 source) Penicillins Drug allergy (disorder) 5 [facility] Rep[facility] (1 source) Simvastatin Drug Allergy 5 [facility] Rep[facility] (1 source) Sulfonamides (Antibiotic) Drug allergy (disorder) 5 [facility] Repository Medications Current Medications Medication Drug Class(es) Dates Sig (Normalized) Sig (Original) Aclidinium [place] (20 sources) Start: 11-28-2020 take 400 ug by inhalation twice daily Aclidinium [place] Active 400 MCG IH TWICE A DAY November 28, 2020 11:13am Start: 11-28-2020 take 400 ug by inhal ation twice daily Aclidinium [place] 400 MCG aerosol powdr breath activated Active 400 ug IH TWICE A DAY November 28, 2020 12:00am Start: 11-28-2020 take 400 ug by inhal ation twice daily Aclidinium [place] Active 400 MCG IH TWICE A DAY November 28, 2020 12:00am Start: 11-30-2019 End: 10-29-2022 Aclidinium [place] (Tudorza Pressair) 400 mcg/actuation aerosol powdr breath activated Discontinued 1 NMA INHALATION Q12H 1 11 November 30, 2019 11:20am October 29, 2022 3:10pm Cough Start: 11-30-2019 End: 10-29-2022 Aclidinium [place] (Tudorza Pressair) 400 mcg/actuation aerosol powdr breath activated Discontinued 1 NMA INHALATION Q12H 1 November 30, 2019 11:20am October 29, 2022 3:10pm Start: 11-30-2019 End: 10-29-2022 Aclidinium [place] (Tudorza Pressair) 400 mcg/actuation aerosol powdr breath activated Discontinued 1 INH INHALATION Q12H 1 November 30, 2019 11:20am October 29, 2022 3:10pm Start: 11-30-2019 Aclidinium [place] (Tudorza Pressair) 400 mcg/actuation aerosol powdr breath activated Active 1 INH INHALATION Q12H 1 November 30, 2019 11:20am Start: 10-20-2018 End: 11-30-2019 Aclidinium [place] (Tudorza Pressair) 400 mcg/actuation aerosol powdr breath activated Discontinued 1 INH INHALATION Q12H 1 October 20, 2018 9:16am November 30, 2019 11:21am Start: 10-20-2018 End: 11-30-2019 Aclidinium [place] (Tudorza Pressair) 400 mcg/actuation aerosol powdr breath activated Discontinued 1 NMA INHALATION Q12H 1 October 20, 2018 1:00am November 30, 2019 11:21am Cough Start: 10-20-2018 End: 11-30-2019 Aclidinium [place] (Tudorza Pressair) 400 mcg/actuation aerosol powdr breath activated Discontinued 1 NMA INHALATION Q12H 1 October 20, 2018 1:00am November 30, 2019 11:21am Start: 10-20-2018 End: 11-30-2019 Aclidinium [place] (Tudorza Pressair) 400 mcg/actuation aerosol powdr breath activated Discontinued 1 INH INHALATION Q12H October 20, 2018 1:00am November 30, 2019 11:21am Start: 06-24-2015 End: 10-20-2018 take 1 puff(s) by inhalation twice daily Aclidinium [place] Discontinued 2 PUFF IH TWICE A DAY June 24, 2015 9:40am October 20, 2018 9:16am Start: 06-24-2015 End: 10-20-2018 Aclidinium [place] 400 MCG a erosol powdr breath activated Discontinued 2 NMA IH TWICE A DAY June 24, 2015 12:00am October 20, 2018 9:16am Start: 06-24-2015 End: 10-20-2018 take 1 puff(s) by inhalation twice daily Aclidinium [place] Discontinued 2 PUFF IH TWICE A DAY June 24, 2015 12:00am October 20, 2018 9:16am Start: 07-27-2014 End: 12-19-2022 aclidinium bromide (TUDORZA PRESSAIR) 400 mcg/actuation aepb inhaler TWICE A DAY 0 07/27/2014 12/19/2022 Discontinued Start: 07-27-2014 take 1 puff(s) by in halation twice daily TUDORZA PRESSAIR 400 MCG/ACT AEPB 1 puff by inhalation twice daily ACLIDINIUM BROMIDE [id number] Emily Aviles CNP Comment on above: TWICE A DAY amLODIPine 2.5 mg oral tablet (20 sources) Dihydropyridine Calcium Channel Chcuho Start: End: take 1 tablet by mouth once daily Amlodipine 2.5 mg tablet Active 2.5 mg PO DAILY January 10, 2025 12:00am Start: 11-14-2021 End: 12-16-2022 take 1 tablet by mouth once daily, then take 5 tablets by mouth once daily amLODIPine (NORVASC) 2.5 mg tablet Indications: Essential hypertension Take 1 tablet by mouth once daily. (Note change from 5mg 1/2 every day) 15 tablet 0 12/16/2022 Active Start: 11-29-2020 End: 01-10-2025 Amlodipine 10 mg tablet Disc ontinued 10 mg PO daily 0 0 November 29, 2020 9:30am January 10, 2025 9:05am Hold for systolic blood pressure less than 130 mmHg Start: 10-09-2017 End: 11-29-2020 take 1 tablet by mouth once daily Amlodipine (Norvasc) 10 mg tablet Discontinued 10 mg PO daily October 09, 2017 1:00am November 29, 2020 9:30am Start: 04-03-2016 take 1 tablet by jabier th once daily NORVASC 10 MG TABS One tablet by mouth daily AMLODIPINE BESYLATE [id number] Lila Hooper Comment on above: Take 1 tablet by jabier th once daily. (Note change from 5mg 1/2 every day) Take 1 tablet by jabier th once daily. calcium carbonate 1250 mg oral tablet (20 sources) Start: 01-10-2025 take 1 tablet by mouth once daily Calcium Carbonate (Oyster Shell Calcium) 500 mg calcium (1,250 mg) tablet Active 500 mg PO DAILY January 10, 2025 12:00am Start: 02-01-2010 calcium carbon ate ([id number])(TUMS 500 MG CHEWABLE TAB) Take 1,000 mg by mouth two times a day as needed (GERD). 0 02/01/2010 Active TUMS 500 MG CHEW as needed CALCIUM CARBONATE ANTACID [id number] Lila Hooper CALCIUM CARBONAT E TABS 420mg-180mg as needed CALCIUM CARBONATE TABS [id number] Jean Maza MA End: 04-03-2016 CALCIUM CARBONATE TABS 420mg -180mg as needed CALCIUM CARBONATE TABS [id number] Lila Hooper Comment on above: PRN calcium carbonate 1500 mg / cholecalciferol 200 unt oral tablet (20 sources) Vitamin D Start: 09-24-2008 take 1 tablet by mouth once daily calcium carbonate/vitamin d3(CALCIUM 600 WITH VITAMIN D3 600 MG (1,500)-200 UNIT TAB) Take 1 tablet by mouth once daily. 0 09/24/2008 Active Start: 09-24-2008 calcium carbon ate/vitamin d3(CALCIUM 600 WITH VITAMIN D3 600 MG (1,500)-200 UNIT TAB) Take one(1) tablet twice daily. 0 09/24/2008 Active Comment on above: Take one(1) tablet t wice daily. clindamycin 150 mg oral capsule (1 source) Lincosamide Antibacterial Start: 02-15-20 End: 02-22-20 take 2 capsules by mouth three times daily clindamycin (CLEOCIN) 150 mg capsule Take 2 capsules by mouth three times daily for 7 days. 42 capsule 0 02/14/2022 02/21/2022 Active Comment on above: Take 2 capsules by m out three times daily for 7 days. doxycycline hyclate 100 mg oral tablet (20 sources) Tetracycline-class Drug Start: 01-25-20 End: 02-01-20 take 1 tablet by mouth twice daily doxycycline (VIBRA-TABS) 100 mg tablet Indications: Ulcer of left lower extremity, limited to breakdown of skin (HCC) Take 1 tablet by mouth two times a day for 7 days. 14 tablet 01/24/2025 01/31/2025 Active Start: 12-02-2024 End: 12-12-2024 take 1 tablet by mouth twice daily doxycycline (VIBRA-TABS) 100 mg tablet Take 1 tablet by mouth two times a day for 10 days. 20 tablet 12/02/2024 12/12/2024 Active Start: 03-06-2024 End: 03-13-2024 take 1 tablet by mouth twice daily doxycycline monohydrate 100 mg tablet Take 1 tablet by mouth two times a day for 7 days. 14 tablet 0 03/06/2024 03/13/2024 Active Start: 12-25-2023 End: 06-28-2024 take 1 capsule by mouth twice daily Doxycycline Hyclate 100 mg capsule Discontinued 100 mg PO TWICE A DAY 60 1 January 05, 2024 10:46am June 28, 2024 9:54am Start: 10-16-2022 End: 10-23-2022 take 1 tablet by mouth twice daily doxycycline (VIBRA-TABS) 100 mg tablet Take 1 tablet by mouth twice daily for 7 days. 14 tablet 0 10/16/2022 10/23/2022 Active Start: 01-23-2022 End: 02-02-2022 take 1 tablet by mouth twice daily doxycycline (VIBRA-TABS) 100 mg tablet Indications: Cellulitis of left lower extremity Take 1 tablet by mouth twice daily for 10 days. 20 tablet 0 01/23/2022 02/02/2022 Active Comment on above: Take 1 tablet by jabier twice daily for 10 days. Take 1 tablet by jabier twice daily for 7 days. estradiol 0.1 mg/ml vaginal cream (20 sources) Estrogen Start: 07-16-2019 End: 12-19-2023 estradiol (ESTRACE) 0.01 % (0.1 mg/gram) vaginal cream Indications: Vaginal dryness Use 1 g vaginally one time a week. 30 g 11 12/19/2022 Active ESTRACE 0.1 MG/G M CREA use a pea sized amount to the vagina daily ESTRADIOL [id number] Lila Hooper ESTRACE 0.1 MG/G M CREA use a pea sized amount to the vagina daily ESTRADIOL [id number] Jean Maza MA Comment on above: Use 1 g vaginally on e time a week. famotidine 20 mg oral tablet (20 sources) Histamine-2 Receptor Antagonist Start: 2 take 1 tablet by mouth every twenty-four hours as needed famotidine (PEPCID) 20 mg tablet Take 1 tablet by mouth at bedtime as needed. 90 tablet 3 11/14/2021 Active Comment on above: Take 1 tablet by jabier th at bedtime as needed. furosemide 20 mg oral tablet (20 sources) Loop Diuretic Start: 8 End: 5 take 1 tablet by mouth once daily furosemide (LASIX) 20 mg tablet Indications: Uncontrolled stage 2 hypertension Take 1 tablet by mouth once daily. 90 tablet 3 11/24/2024 Active Start: 04-03-2016 take 1 tablet by jabier th once daily FUROSEMIDE 20 MG TABS One tablet by mouth daily FUROSEMIDE [id number] Lila Hooper Comment on above: Take 1 tablet by jabier th once daily. Needs appointment for future refills TAKE 1 TABLET DAILY (NEED APPOINTMENT FOR FUTURE REFILLS) ibuprofen 600 mg oral tablet (3 sources) Nonsteroidal Anti-inflammatory Drug Start: 11-16-19 End: 11-30-19 take 1 tablet by mouth every six hours as needed for pain ibuprofen (MOTRIN) 600 mg tablet Indications: Partial thickness burn of left forearm, initial encounter Take 1 tablet by mouth every 6 hours as needed for pain for up to 14 days. 56 tablet 0 11/15/2021 11/29/2021 Active Comment on above: Take 1 tablet by jabier th every 6 hours as needed for pain for up to 14 days. lactobacillus acidophilus 460 mg oral capsule (20 sources) Start: 02-15-20 22 Lactobacillus acidophilus (FLORAJEN ACIDOPHILUS) 20 billion cell cap Take 460 mg by mouth once daily. 30 capsule 02/14/2022 Active Comment on above: Take 460 mg by mouth once daily. levoFLOXacin 500 mg oral tablet (12 sources) Quinolone Antimicrobial Start: 02-16-20 25 take 1 tablet by mouth once daily Levofloxacin 500 mg tablet Active 500 mg PO DAILY February 15, 2025 12:00am Wound Infection Start: 11-29-2020 End: 05-02-2022 take 1 tablet by mouth once daily Levofloxacin 500 MG tablet Discontinued 500 mg PO DAILY 2 November 29, 2020 12:00am May 02, 2022 4:13pm lisinopril 20 mg oral tablet (20 sources) Angiotensin Converting Enzyme Inhibitor Start: 11-14-2021 End: 11-23-2024 take 1 tablet by mouth once daily Lisinopril 20 mg tablet Active 20 mg PO DAILY January 10, 2025 12:00am Start: 11-29-2020 End: 01-10-2025 Lisinopril 10 MG tablet Disc ontinued 10 mg PO DAILY 0 0 November 29, 2020 9:30am January 10, 2025 9:05am Hold for SBP less than 130 mmHg Start: 11-28-2020 End: 11-29-2020 take 1 tablet by mouth once daily Lisinopril 10 MG tablet Discontinued 10 mg PO DAILY November 28, 2020 12:00am November 29, 2020 9:30am Start: 04-03-2016 take 1 tablet by jabier th once daily LISINOPRIL 10 MG TABS One tablet by mouth daily LISINOPRIL [id number] Lila Hooper Comment on above: Take 1 tablet by jabier th once daily. TAKE 1 TABLET DAILY lysine 500 mg oral tablet (5 sources) Start: 01-10-2025 take 1 tablet by mouth once daily Lysine (L-Lysine) 500 mg tablet Active 500 mg PO DAILY January 10, 2025 12:00am magnesium (20 sources) Start: 10-09-2017 take 125 mg by mouth once daily Magnesium Active 125 MG PO daily October 09, 2017 10:22am Start: 10-09-2017 End: 01-10-2025 Magnesium 250 mg tablet Disc ontinued 125 mg PO daily October 09, 2017 1:00am January 10, 2025 9:09am supplement Start: 10-09-2017 End: 01-10-2025 Magnesium 250 mg tablet Disc ontinued 125 mg PO daily October 09, 2017 1:00am January 10, 2025 9:09am Start: 10-09-2017 Magnesium 250 mg tablet Active 125 mg PO daily October 09, 2017 1:00am Start: 10-09-2017 take 125 mg by mouth once petr y Magnesium Active 125 MG PO daily October 09, 2017 1:00am Start: 11-01-2008 take 1 tablet by jabier th once daily MAGNESIUM 250 MG TAB Take 250 mg by mouth once daily. 0 11/01/2008 Active Start: 11-01-2008 MAGNESIUM 250 MG TAB Take one(1) tablet daily. 0 11/01/2008 Active take 1 tablet by jabier th once daily MAGNESIUM 250 MG TABS One tablet by mouth daily MAGNESIUM [id number] Jean Maza MA Comment on above: Take one(1) tablet d aily. naproxen 500 mg oral tablet (20 sources) Nonsteroidal Anti-inflammatory Drug Start: 01-05-20 End: 01-25-20 take 1 tablet by mouth twice daily as needed for pain Naproxen 500 mg tablet Active 500 mg PO TWICE DAILY NEEDED as needed for pain February 09, 2025 12:00am omeprazole 20 mg delayed release oral capsule (20 sources) Proton Pump Inhibitor Start: 12-20-19 End: 06-23-20 take 1 capsule by mouth once daily before breakfast omeprazole (PRILOSEC) 20 mg capsule Take 1 capsule by mouth daily before breakfast. 1/2 hr before meal. 30 capsule 2 06/23/2023 Active Comment on above: Take 1 capsule by mo [facility] daily before breakfast. 1/2 hr before meal. oseltamivir 75 mg oral capsule (2 sources) Neuraminidase Inhibitor Start: 07-20-20 End: 07-25-20 take 1 capsule by mouth twice daily oseltamivir (TAMIFLU) 75 mg capsule Indications: Influenza A Take 1 capsule by mouth two times a day for 5 days. 10 capsule 0 07/20/2023 07/25/2023 Active Comment on above: Take 1 capsule by mo [facility] two times a day for 5 days. oxyCODONE hydrochloride 5 mg oral capsule (11 sources) Opioid Agonist Start: 02-10-20 take 1 capsule by mouth every six hours as needed for pain Oxycodone 5 mg capsule Active 5 mg PO EVERY 6 HOURS NEEDED as needed for pain February 09, 2025 12:00am Start: 01-10-2025 take 1 tablet by jabier every four hours as needed for pain Oxycodone 5 mg Tablet Active 5 mg PO EVERY 4 HOURS NEEDED as needed for Pain Score 4-10 15 4 0 January 10, 2025 Compression fracture of lumbar vertebra Start: 12-31-2024 End: 01-10-2025 take 1 capsule by mouth every six hours as needed for pain Oxycodone 5 mg capsule Discontinued 5 mg PO EVERY 6 HOURS as needed for pain 12 3 0 December 31, 2024 January 10, 2025 9:09am Compression fracture of lumbar vertebra Polyethylene Glycols (20 sources) polyethylene gly col 3350 (MIRALAX ORAL) Take 17 g by mouth as needed (constipation). Active polyethylene gly col 3350 (MIRALAX ORAL) Take 17 g by mouth as needed (constipation). 0 Active polyethylene gly col 3350 (MIRALAX ORAL) Take by mouth. 0 Active Comment on above: Take by mouth. potassium gluconate 2.5 meq oral tablet (20 sources) Start: 11-01-2008 End: 01-10-2025 take 1 tablet by mouth once daily POTASSIUM GLUCONATE 595 MG (99 MG) TAB Take 595 mg by mouth once daily. 0 11/01/2008 Active Start: 11-01-2008 POTASSIUM GLUC AMANDA 595 MG (99 MG) TAB Take one(1) tablet daily. 0 11/01/2008 Active Comment on above: Take one(1) tablet d aily. predniSONE 20 mg oral tablet (3 sources) Start: End: take 2 tablets by mouth once daily predniSONE (DELTASONE) 20 mg tablet Take 2 tablets by mouth once daily for 5 days. 10 tablet 0 10/16/2022 10/21/2022 Active Comment on above: Take 2 tablets by [facility] once daily for 5 days. 7 actuat umeclidinium 0.0625 mg/actuat dry powder inhaler (20 sources) Anticholinergic Start: take 1 puff(s) by inhalation once daily umeclidinium (INCRUSE ELLIPTA) 62.5 mcg/actuation inhaler Indications: Chronic obstructive pulmonary disease, unspecified COPD type (HCC) Inhale 1 Puff as instructed once daily. 30 Each 5 12/19/2022 Active Comment on above: Inhale 1 Puff as ins tructed once daily. Vit C,I-Uu-Pxsce-Lutein- Zeaxan (Preservision Areds-2) 250-90-40-1 mg capsule (3 sources) Start: 025 take 2 capsules by mouth twice daily Vit C,P-Fv-Wuphc-Lutein -Zeaxan (Preservision Areds-2) 250-90-40-1 mg capsule Active 1 {tbl} PO TWICE A DAY January 10, 2025 12:00am eye health Start: 01-10-2025 take 2 capsules by m outh twice daily Vit C,Q-Zx-Vjmja-Lutein-Zeaxan (Preservision Areds-2) 250-90-40-1 mg capsule Active 1 {tbl} PO TWICE A DAY January 10, 2025 12:00am vitamin b12 1 mg oral tablet (20 sources) Vitamin B12 Start: 08-15-2015 take 1 tablet by mouth once daily cyanocobalamin (VITAMIN B-12) 1,000 mcg tab Indications: Vitamin B 12 deficiency Take 1 tablet by mouth once daily. 0 08/15/2015 Active Comment on above: Take 1 tablet by mouth once daily. zinc acetate 50 mg oral capsule (5 sources) Start: 01-10-2025 take 1 capsule by mouth once daily Zinc Acetate (Galzin) 50 mg (zinc) capsule Active 50 mg PO DAILY January 10, 2025 12:00am Completed/Discontinued Medications Medication Drug Class(es) Dates Sig (Normalized) Sig (Original) ACAPELLA (3 sources) Start: 09-26-2015 ACAPELLA Use Twice daily Dx: Bronchiectesis ACAPELLA Ever Langley acetaminophen 500 mg oral tablet (1 source) Start: 02-03-2025 End: 02-03-2025 take 1 dose by mouth once, then take 4000 mg by mouth once daily 1,000 mg, ORAL, ONCE, 1 dose, On [facility] 02/03/25 at 1000, No more than 4000 mg of acetaminophen should be given per day (FROM ALL SOURCES) Aclidinium [place] 400 MCG aerosol powdr breath activated (5 sources) Start: 11-28-2020 End: 01-10-2025 take 400 ug by inhalation twice daily Aclidinium [place] 400 MCG aerosol powdr breath activated Discontinued 400 ug IH TWICE A DAY November 28, 2020 12:00am January 10, 2025 9:09am breathing Start: 11-28-2020 End: 01-10-2025 take 400 ug by inhalation twice daily Aclidinium [place] 400 MCG aerosol powdr breath activated Discontinued 400 ug IH TWICE A DAY November 28, 2020 12:00am January 10, 2025 9:09am [id number] 200 actuat albuterol 0.09 mg/actuat metered dose inhaler (20 sources) beta2-Adrenergic Agonist Start: 11-14-2021 End: 01-05-2024 take 2 puff(s) by inhalation every four hours as needed for wheezing albuterol HFA (PROVENTIL HFA, VENTOLIN HFA) 90 mcg/actuation inhaler Indications: Bronchopneumonia Inhale 2 Puffs as instructed every 4 hours as needed for wheezing/shortness of breath. With spacer please. 1 Inhaler 2 11/14/2021 01/05/2024 Discontinued End: 09-28-2014 PROAIR HFA 108 (90 Base) MCG /ACT AERS inhale 2 puffs as instructed every 4 hrs as needed ALBUTEROL SULFATE [id number] Jean Maza MA PROAIR HFA 108 ( 90 Base) MCG/ACT AERS inhale 2 puffs as instructed every 4 hrs as needed ALBUTEROL SULFATE [id number] Jean Maza MA Comment on above: Inhale 2 Puffs as in structed every 4 hours as needed for wheezing/shortness of breath. With spacer please. benzonatate 100 mg oral capsule (20 sources) Non-narcotic Antitussive Start: 023 End: 023 take 2 capsules by mouth every eight hours as needed benzonatate (TESSALON PERLES) 100 mg capsule Take 2 capsules by mouth three times daily as needed. 30 capsule 0 10/16/2022 06/23/2023 Discontinued take 1 tablet by jabier th three times daily as needed for cough BENZONATATE 200 MG CAPS One tablet by mo [facility] three times daily as needed for cough for up to 10 days BENZONATATE [id number] Jean Maza MA Comment on above: Take 2 capsules by m [facility] three times daily as needed. Biotin (20 sources) End: 01-05-2024 BIOTIN ORAL Take by mouth. 0 01/05/2024 Discontinued BIOTIN ORAL Take by mouth. 0 Active Comment on above: Take by mouth. calcium citrate (6 sources) End: 04-03-2016 take 1 tablet by mouth twice daily CALCIUM CITRATE +D TABS One tablet by mouth twice daily CALCIUM CITRATE-VITAMIN D TABS [id number] Lila Hooper take 1 tablet by mouth twice tylor ly CALCIUM CITRATE +D TABS One tablet by mouth twice daily CALCIUM CITRATE-VITAMIN D TABS [id number] Jean Maza MA ciprofloxacin 500 mg oral tablet (7 sources) Quinolone Antimicrobial Start: 11-18-2023 End: 06-28-2024 take 1 tablet by mouth twice daily Ciprofloxacin Hcl 500 mg tablet Discontinued 500 mg PO TWICE A DAY 20 November 18, 2023 12:00am June 28, 2024 9:54am clobetasol propionate 0.0005 mg/mg topical ointment (3 sources) Corticosteroid CLOBETASOL PROPIONATE 0.05 % OINT apply 1 application to affected area twice daily CLOBETASOL PROPIONATE [id number] Jean Maza MA dicyclomine hydrochloride 10 mg oral capsule (6 sources) Anticholinergic Start: 12-25-2023 End: 01-10-2025 take 1 capsule by mouth twice daily Dicyclomine 10 mg capsule Discontinued 10 mg PO TWICE A DAY 60 December 25, 2023 12:00am January 10, 2025 9:05am esomeprazole 40 mg delayed release oral capsule (20 sources) Proton Pump Inhibitor Start: 04-03-2016 take 1 tablet by mouth every other day, then take 2 tablets by mouth NEXIUM 20 MG PACK One tablet by mouth every other day. On off days, 2 capsules ESOMEPRAZOLE MAGNESIUM [id number] Lila Hooper Start: 06-24-2015 End: 07-06-2024 take 1 capsule by mouth once daily in the morning Esomeprazole Magnesium 40 mg capsule,delayed release(DR/EC) Discontinued 40 mg PO EVERY MORNING 90 January 09, 2024 3:10pm July 06, 2024 10:42am Start: 04-11-2014 End: 12-19-2022 esomeprazole (NEXIUM) 40 mg capsule twice daily before meals. (1) once daily. 0 04/11/2014 12/19/2022 Discontinued esomeprazole mag nesium (NEXIUM ORAL) Take by mouth as needed. Active take 1 tablet by jabier th once daily NEXIUM 40 MG PACK One tablet by mouth daily ESOMEPRAZOLE MAGNESIUM [id number] Jean Maza MA Comment on above: twice daily before m eals. (1) once daily. fish oil (6 sources) End: 04-24-2017 take 1 tablet by mouth once daily FISH OIL 1000 MG CAPS One tablet by mouth daily OMEGA-3 FATTY ACIDS [id number] Lila Peck [employer] take 1 tablet by mouth once petr y FISH OIL 1000 MG CAPS One tablet by mouth daily OMEGA-3 FATTY ACIDS [id number] Jean Maza MA FLUTICASONE PROPIONATE (20 sources) Corticosteroid Start: 10-02-2016 FLONASE ALLERG Y RELIEF 50 MCG/ACT SUSP 1 spray each nare bid FLUTICASONE PROPIONATE [id number] Claire Shapr Start: 06-24-2015 End: 11-30-2019 Fluticasone Propionate 1 SPR AY spray,suspension Discontinued 1 NMA NASAL TWICE A DAY June 24, 2015 12:00am November 30, 2019 11:26am Start: 06-24-2015 End: 11-30-2019 Fluticasone Propionate Disco ntinued 1 SPRAY NASAL TWICE A DAY June 24, 2015 12:00am November 30, 2019 11:26am Start: 04-03-2015 take 2 spray(s) nasa l route once daily fluticasone (FLONASE) 50 mcg/actuation nasal spray Use 2 Sprays in each nostril once daily. 1 Bottle 11 04/03/2015 Active End: 09-28-2014 take 2 spray(s) nasal route once daily FLUTICASONE PROPIONATE 50 MCG/ACT SUSP use 2 sprays in each nostril once daily FLUTICASONE PROPIONATE [id number] Jean Maza MA Comment on above: Use 2 Sprays in each nostril once daily. hydrOXYzine hydrochloride 25 mg oral tablet (20 sources) Antihistamine Start: 06-24-20 18 End: 12-20-19 23 take 1 tablet by mouth every six hours as needed hydrOXYzine HCl (ATARAX) 25 mg tablet Take 1 tablet by mouth every 6 hours as needed. 45 tablet 1 06/24/2018 12/19/2022 Discontinued Comment on above: Take 1 tablet by jabier th every 6 hours as needed. meclizine hydrochloride 25 mg oral tablet (20 sources) Antiemetic Start: 04-06-20 End: 06-28-20 take 1 tablet by mouth four times daily as needed for dizziness Meclizine 25 mg tablet Discontinued 25 mg PO 4 TIMES DAILY NEEDED as needed for Dizziness 20 April 06, 2021 12:00am June 28, 2024 9:54am Start: 11-29-2020 End: 10-29-2022 take 1 tablet by mouth four times daily as needed for dizziness Meclizine 12.5 MG tablet Discontinued 12.5 mg PO 4 TIMES DAILY NEEDED as needed for dizziness November 29, 2020 9:30am October 29, 2022 3:10pm metroNIDAZOLE 500 mg oral tablet (11 sources) Nitroimidazole Antimicrobial Start: 11-18-2023 End: 06-28-2024 take 1 tablet by mouth every six hours Metronidazole 500 mg tablet Discontinued 500 mg PO EVERY 6 HOURS 40 0 November 18, 2023 12:00am June 28, 2024 9:54am End: 01-05-2024 take 1 tablet by mouth four times daily metroNIDAZOLE (FLAGYL) 500 mg tablet Take 500 mg by mouth four times daily. 0 01/05/2024 Discontinued Comment on above: Take 500 mg by mouth four times daily. 24 hr oxybutynin chloride 10 mg extended release oral tablet (19 sources) Cholinergic Muscarinic Antagonist Start: 2 End: 3 take 1 tablet by mouth once daily oxybutynin ER (DITROPAN XL) 10 mg 24 hr tablet Take 1 tablet by mouth once daily. 30 tablet 0 06/11/2022 06/23/2023 Discontinued Comment on above: Take 1 tablet by jabier th once daily. red yeast rice 600 mg oral capsule (6 sources) End: 4 take 1 tablet by mouth twice daily RED YEAST RICE EXTRACT 600 MG CAPS One tablet by mouth twice daily RED YEAST RICE EXTRACT [id number] Ever Langley sucralfate 1000 mg oral tablet (20 sources) Aluminum Complex Start: 2 End: 4 take 1 tablet by mouth before mealtime Sucralfate 1 gram tablet Discontinued 1 g PO before meals 90 1 June 19, 2022 2:56pm June 28, 2024 9:55am Start: 11-22-2021 End: 01-06-2022 take 1 tablet by mouth three times daily Sucralfate (Carafate) 1 gram tablet Discontinued 1 g PO THREE TIMES A DAY 90 30 0 December 07, 2021 1:48pm January 05, 2022 12:00am January 06, 2022 12:05am Gastritis 60 actuat tiotropium 0.76624 mg/actuat inhalation spray (20 sources) Anticholinergic Start: 06-24-2015 End: 10-21-2017 take 4 g by inhalation once daily Tiotropium [place] 4 GM mist Discontinued 4 g IH DAILY June 24, 2015 12:00am October 21, 2017 9:24am Start: 09-28-2014 End: 03-28-2015 SPIRIVA RESPIMAT 2.5 MCG/ACT AERS Two puffs inhaled daily TIOTROPIUM BROMIDE MONOHYDRATE [id number] Jean Maza MA Start: 09-28-2014 take 2 puff(s) by in halation once daily SPIRIVA RESPIMAT 2.5 MCG/ACT AERS 2 puffs INH daily TIOTROPIUM BROMIDE MONOHYDRATE [id number] Ever Langley Start: 09-28-2014 SPIRIVA RESPIM AT 2.5 MCG/ACT AERS Two puffs inhaled daily TIOTROPIUM BROMIDE MONOHYDRATE [id number] Ever Langley Start: 09-28-2014 End: 03-28-2015 take 2 puff(s) by inhalation once daily SPIRIVA RESPIMAT 2.5 MCG/ACT AERS 2 puffs INH daily TIOTROPIUM BROMIDE MONOHYDRATE [id number] Jean Maza MA 100 ml zoledronic acid 0.05 mg/ml injection (1 source) Bisphosphonate Start: 02-03-2025 End: 02-03-2025 5 mg, INTRAVENOUS, at 400 mL/hr, Administer over 15 Minutes, ONCE, 1 dose, On Kristi 02/03/25 at 1000, Hazardous Potential Reproductive Risk Drug: Use appropriate PPE. Problems Active Problems Problem Classification Problem Date Documented Da te Episodic/Chronic Abdominal hernia (20 sources) Diaphragmatic hernia; Translations: [Diaphragmatic hernia without obstruction or gangrene] Onset: 2 07-05-2005 Episodic Chronic obstructive pulmonary disease and bronchiectasis (20 sources) Mild chronic obstructive pulmonary disease; Translations: [Chronic obstructive lung disease] Onset: 5 06-11-2016 Chronic Chronic ulcer of skin (10 sources) Superficial skin ulcer of lower limb; Translations: [Non-pressure chronic ulcer of unspecified part of left lower leg limited to breakdown of skin] Onset: 5 01-24-2025 Chronic Conditions associated with dizziness or vertigo (20 sources) Severe vertigo, acute onset; Translations: [Dizziness and giddiness] Onset: 5 11-28-2020 Episodic Delirium, dementia, and amnestic and other cognitive disorders (6 sources) Postconcussion syndrome; Translations: [Postconcussional syndrome] 04-24-2024 Chronic Disorders of lipid metabolism (20 sources) Dyslipidemia; Translations: [Hyperlipidemia, unspecified] Onset: 0 08-15-2015 Chronic Diverticulosis and diverticulitis (20 sources) Diverticulitis of large intestine without perforation or abscess without bleeding; Translations: [Diverticulitis of colon (without mention of hemorrhage)] Onset: 4 07-05-2005 Chronic E Codes: Fall (9 sources) Fall on same level from slipping, tripping or stumbling ; Translations: [Fall on same level from slipping, tripping and stumbling without subsequent striking against object, initial encounter] 04-09-2024 Episodic Esophageal disorders (2 sources) Gastroesophageal reflux disease without esophagitis; Translations: [Gastro-esophageal reflux disease without esophagitis] Onset: 5 2025 Chronic Essential hypertension (20 sources) Essential hypertension; Translations: [Essential (primary) hypertension] Onset: 6 08-13-2016 Chronic Genitourinary symptoms and ill-defined conditions (1 source) Urinary incontinence; Translations: [Unspecified urinary incontinence] Chronic Immunizations and screening for infectious disease (4 sources) Patient encounter status; Translations: [Encounter for immunization] Onset: 5 Episodic Influenza (1 source) Influenza due to Influenza A virus; Translations: [Influenza due to other identified influenza virus with other respiratory manifestations] 07-20-2023 Episodic Nonspecific chest pain (1 source) Chest pain; Translations: [Chest pain, unspecified] Episodic Nutritional deficiencies (2 sources) Vitamin D deficiency; Translations: [Vitamin D deficiency, unspecified] Onset: 5 2025 Chronic Open wounds of extremities (3 sources) Disorder of lower extremity; Translations: [Unspecified open wound, left lower leg, subsequent encounter] Onset: Episodic Osteoporosis (3 sources) Osteoporosis; Translations: [Age-related osteoporosis without current pathological fracture] Onset: 5 2025 Chronic Other acquired deformities (10 sources) Lumbar spondylolisthesis; Translations: [Spondylolisthesis, lumbar region] 01-10-2025 Episodic Other bone disease and musculoskeletal deformities (13 sources) History of amputation of right great toe; Translations: [Acquired absence of right great toe] 10-09-2017 Chronic Other bone disease and musculoskeletal deformities (1 source) Acquired absence of right great toe; Translations: [Acquired absence of right great toe] Onset: Chronic Other bone disease and musculoskeletal deformities (1 source) Absence of toe; Translations: [Acquired absence of other right toe(s)] Episodic Other connective tissue disease (2 sources) Pain in right hand; Translations: [Pain in right hand] 04-09-2024 Episodic Other eye disorders (1 source) Cataract extraction status, unspecified eye; Translations: [Cataract extraction status, unspecified eye] Onset: 5 Episodic Other female genital disorders (1 source) Vaginal dryness; Translations: [Other specified noninflammatory disorders of vagina] Episodic Other fractures (12 sources) Compression fracture of lumbar spine; Translations: [Wedge compression fracture of unspecified lumbar vertebra, initial encounter for closed fracture] 12-31-2024 Episodic Other gastrointestinal disorders (10 sources) Constipation; Translations: [Constipation, unspecified] 10-29-2022 Episodic Other inflammatory condition of skin (13 sources) Psoriasis; Translations: [Psoriasis, unspecified] 10-09-2017 Chronic Other inflammatory condition of skin (1 source) Psoriasis, unspecified; Translations: [Psoriasis, unspecified] Onset: 5 Chronic Other injuries and conditions due to external causes (2 sources) Injury of left foot; Translations: [Unspecified injury of left foot, sequela] Episodic Other injuries and conditions due to external causes (1 source) Injury of head; Translations: [Other specified injuries of head, initial encounter] 04-16-2024 Episodic Other lower respiratory disease (19 sources) Dyspnea on exertion; Translations: [Chronic cough] Onset: 4 03-28-2015 Episodic Other lower respiratory disease (10 sources) Chronic cough; Translations: [Chronic cough] 10-09-2017 Episodic Other lower respiratory disease (1 source) Other forms of dyspnea; Translations: [Other forms of dyspnea] Onset: 5 Episodic Other nervous system disorders (20 sources) Magnetic resonance imaging of brain abnormal; Translations: [Disorder of brain, unspecified] Onset: 1 12-18-2020 Chronic Other non-traumatic joint disorders (1 source) Pain in right shoulder; Translations: [Pain in joint, shoulder region] 01-05-2024 Episodic Other non-traumatic joint disorders (3 sources) Pain of right wrist; Translations: [Pain in right wrist] 04-09-2024 Episodic Other nutritional; endocrine; and metabolic disorders (3 sources) Overweight; Translations: [Overweight] Onset: 4 03-29-2014 Chronic Other nutritional; endocrine; and metabolic disorders (10 sources) Overweight; Translations: [Overweight] 10-09-2017 Episodic Other upper respiratory disease (13 sources) Hoarse; Translations: [Dysphonia] Onset: 4 03-29-2014 Episodic Other upper respiratory infections (1 source) Viral upper respiratory tract infection; Translations: [Acute upper respiratory infection, unspecified] 07-20-2023 Episodic Residual codes; unclassified (1 source) Family history of cancer of colon; Translations: [Family history of malignant neoplasm of digestive organs] 11-24-2023 Episodic Residual codes; unclassified (1 source) Other specified postprocedural states; Translations: [Other specified postprocedural states] Onset: 5 Episodic Residual codes; unclassified (1 source) Acquired absence of other specified parts of digestive tract; Translations: [Acquired absence of other specified parts of digestive tract] Onset: 5 Episodic Spondylosis; intervertebral disc disorders; other back problems (13 sources) Degeneration of lumbar intervertebral disc; Translations: [Degeneration of intervertebral disc of lumbar region] 01-10-2025 Chronic Unclassified (10 sources) Age more than 65 years; Translations: [Over 65 years old] 06-11-2021 Unclassified (1 source) Acute midline low back pain without sciatica; Translations: [Acute midline low back pain without sciatica] Onset: 5 Unclassified (1 source) Other intervertebral disc degeneration, lumbar region without mention of lumbar back pain or lower extremity pain; Translations: [Other intervertebral disc degeneration, lumbar region without mention of lumbar back pain or lower extremity pain] Onset: 5 Unclassified (1 source) Low back pain, unspecified; Translations: [Low back pain, unspecified] Onset: 5 Urinary tract infections (10 sources) Urinary tract infectious disease; Translations: [Urinary tract infection, site not specified] 11-28-2020 Episodic Viral infection (11 sources) Disease caused by 2019-nCoV; Translations: [COVID-19] Episodic Past or Other Problems Problem Classification Problem Date Documented Da te Episodic/Chronic Allergic reactions (20 sources) Urticaria; Translations: [Urticaria, unspecified] Onset: 0 02-01-2010 Episodic Crushing injury or internal injury (3 sources) Traumatic pneumothorax; Translations: [Traumatic pneumothorax] Resolved: 0 03-29-2014 Episodic Esophageal disorders (20 sources) Esophagitis; Translations: [Esophagitis] Resolved: 9 10-09-2017 Episodic Fracture of lower limb (20 sources) Closed fracture of metatarsal bone; Translations: [Fracture of unspecified metatarsal bone(s), unspecified foot, initial encounter for closed fracture] Onset: 1 Resolved: 9 12-09-2018 Episodic Gastritis and duodenitis (20 sources) Acute gastritis; Translations: [Acute gastritis without bleeding] Resolved: 9 Episodic Other bone disease and musculoskeletal deformities (20 sources) History of amputation of right lesser toe; Translations: [Acquired absence of other right toe(s)] Onset: 2 2022 Episodic Other bone disease and musculoskeletal deformities (20 sources) Disorder of skeletal system; Translations: [Disorder of bone, unspecified] Resolved: 9 12-09-2018 Episodic Other bone disease and musculoskeletal deformities (1 source) Acquired absence of other right toe(s); Translations: [H/O amputation of lesser toe, right (HCC)] Onset: 2 Episodic Other connective tissue disease (20 sources) Bilateral cramp of muscle of lower limbs; Translations: [Cramp and spasm] Onset: 5 04-03-2015 Episodic Other connective tissue disease (20 sources) Cramp in lower limb; Translations: [Cramp and spasm] Onset: 5 Resolved: 9 12-09-2018 Episodic Other fractures (1 source) Wedge compression fracture of unspecified lumbar vertebra, initial encounter for closed fracture; Translations: [Wedge compression fracture of unspecified lumbar vertebra, initial encounter for closed fracture] Onset: 5 Episodic Other gastrointestinal disorders (3 sources) Constipation, unspecified; Translations: [Constipation, unspecified] Onset: 4 Episodic Other nervous system disorders (20 sources) Paresthesia; Translations: [Paresthesia of skin] Onset: 5 Resolved: 9 12-09-2018 Episodic Pathological fracture (12 sources) Pathological fracture due to osteoporosis; Translations: [Age-related osteoporosis with current pathological fracture, unspecified site, initial encounter for fracture] Onset: 5 2025 Episodic Residual codes; unclassified (20 sources) Family history of malignant neoplasm of gastrointestinal tract; Translations: [Family history of malignant neoplasm of digestive organs] Onset: 8 08-22-2008 Episodic Skin and subcutaneous tissue infections (7 sources) Cellulitis of left lower limb; Translations: [Cellulitis of left lower limb] Onset: 5 Episodic Spondylosis; intervertebral disc disorders; other back problems (12 sources) Acute low back pain; Translations: [Acute midline low back pain without sciatica] Onset: 5 12-31-2024 Episodic Unclassified (13 sources) history of hand reconstruction 10-09-2017 Unclassified (13 sources) history of left arm surgery 02-15-2018 Results Test Name Value Interpretation Reference Range Facility Wound Cultureon 06-03-2025 WC Wound Culture Wound Culture Wound Culture Proteus mirabilis Amount Growth 2+ Enterococcus faecalis Enterococcus faecalis STRPAR Amount Growth 3+ Streptococcus parasanguinis Ampicillin Islt CARMELA >=32 Ampicillin+Sulbac Islt CARMELA >=32 R Cefepime Islt CARMELA <=0.12 cefTRIAXone Islt CARMELA 1 S Ciprofloxacin Islt CARMELA <=0.06 S Gentamicin Islt CARMELA <=1 S levoFLOXacin Islt CARMELA <=0.12 S Meropenem Islt CARMELA 0.5 S Pip+Tazo Islt CARMELA <=4 S TMP SMX Islt CARMELA <=20 S Enterococcus faecalis: REACTION Ampicillin Islt CARMELA <=2 S Gentamicin Synergy Susc Islt SYN-S S Linezolid Islt CARMELA 2 Streptomycin High Pot Susc Islt SYN-S S Vancomycin Islt CARMELA 1 S Streptococcus parasanguinis: REACTION Ampicillin Islt CARMELA <=0.25 S Penicillin G Islt CARMELA <=0.06 S Cefotaxime Islt CARMELA <=0.12 cefTRIAXone Islt CARMELA <=0.12 S Linezolid Islt CARMELA <=2 S Vancomycin Islt CARMELA 0.5 S Normal [facility] Comment on above: Performed By: #### M 100.2000, M100.3000 ####[facility] [id number] [facility]. [place], [place], [id number] Gram Stainon 06-01-2025 GS Gram Stain 2+ Gram positive cocci 1+ Gram negative rods 1+ Gram positive rods Normal [facility] Comment on above: Performed By: #### M 100.1999, M100.3000 ####[facility] [id number] [place], [address] CNOVon 05-24-2025 CNOV Office Visit (INTMWS) JENNI STRICKLAND V ([id number]) 1940 F Date Time Provider Department 05/24/25 9:20 AM DA CASTRO During your visit today, we recorded the following information about you: Pulse Respiration Blood pressure Weight 72/minute 16/minute 132/76 63 kg Da Castro MD 05/24/2025 11:07 AM Signed Jenni Strickland is a 85 year old female here for a Medicare wellness visit. Medicare Health Risk Assessment General Health Very good Exercise: Minutes/Day 30 min Exercise: Days/Week 7 days Alcohol: Daily Use Never Alcohol: Drinks/Day Patient does not drink Alcohol: 6 or more drinks Never Feel off balance No Concerns: Teeth/Dentures No Concerns: Sexual function Decline Troubled by feelings None of the above Frequency: Eating healthy diet Nearly every day ADLs requiring help None of the above Safety precautions in home/vehicle Yes Smoke, vape, chews tobacco No Difficulty hearing Yes, I wear a hearing aid Difficulty seeing No Current Providers Specialists: I have reviewed specialist-related care of the patient in the medical record. Medical/Family history review Reviewed and updated problem list, medical/surgical/fam louise/social history, medications, and allergies. Opioid use review Opioid Medications (last 90 days) No data to display Anxiety/Depression screening no anxiety or depression Recommendation: no further intervention at this time Cognitive screening Cognitive screening reviewed and No further action needed (score 3-5). Functional Observation Was the patient's Timed Up AND Go test unsteady or >= 12 seconds? No Advance Care Planning Surrogate decision maker and/or advance care plan documented Measurements BP 148/73 Pulse 75 Resp 16 Wt 63 kg (139 lb) BMI 25.42 kg/m? Vision Screening: Follows with optometry/ophthalmol ogy Assessment/Plan Medicare annual wellness visit, subsequent (Z00.00) - Counseled on healthy diet and regular exercise - Fall avoidance information provided - Personalized prevention plan provided Reason for Visit HPI The Jenni is a 85-year-old female, with a history of HTN, presenting for a Medicare Annual Wellness Visit. The Jenni reports that her blood pressure was elevated today, which she attributes to not having urinated since taking her furosemide. She notes that she usually urinates 2-5 times within the first hour after taking the medication. She is currently taking amlodipine, calcium, Nexium, famotidine, furosemide, lisinopril, potassium, and magnesium. She also takes reactive magnesium for leg cramps, as advised by her chiropractor, Dr. Gann. 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 She reports that she is no longer using inhalers such as Incruse Ellipta or fluticasone. The Jenni is currently receiving wound care from Bita Murphy and reports significant improvement. She previously received care from another provider but discontinued due to painful debridement procedures. She also has a history of a hand injury from a jewel hole cornerer accident, which required five surgeries. She reports that her hand was initially recommended for amputation, but she sought alternative treatment. She has a history of a lesser toe amputation following an accident. She also has a history of osteopenia and has previously taken Fosamax for many years. She reports that she was advised to discontinue the medication. She reports that she is in charge of all household activities, including grocery shopping, cooking, housework, and managing finances. 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 She engages in moderate to strenuous exercise, such as brisk walking, for approximately 20-30 minutes every day. She reports eating healthy foods, including fruits, vegetables, whole grains, and fiber-rich foods, every day. She denies alcohol consumption and smoking. She reports no concerns with balance, hearing, or vision, although she wears hearing aids and bifocals for reading. She has her own teeth and a partial denture due to a previous fall that resulted in broken teeth. She reports that her home is safe, with grab bars in the bathroom, handles on all stairwells, and adequate lighting, including night lighting. She always wears a seatbelt when driving. She denies feelings of anxiety, stress, anger, irritability, loneliness, or thoughts of self-harm. She reports occasional anger towards her for not taking care of his personal health. She rates her overall health as very good, although she notes that it is not as good as before she broke her back. She reports that her sister, who is four years younger, has had multiple falls and mini-strokes and is angry because the Jenni is getting around much better. SOCIAL HISTORY[1] Past medica (more content not included)... Normal [facility] BD DXA - AXIAL SKELETONon BD DXA - AXIAL SKELETON * * *Final Repor t* * * DATE OF EXAM: May 13 2025 3:37PM DANIEL Pierce - BD DXA - AXIAL SKELETON / PROCEDURE REASON: Osteoporosis, unspecified osteoporosis type, unspecified pathological fracture p * * * * Physician Interpretation * * * * EXAMINATION: DXA BONE DENSITOMETRY BD DXA - AXIAL SKELETON, BD DXA - VFA ASSESS ONLY PATIENT DEMOGRAPHICS: Age: 85 years, Gender: Female SCANNER INFORMATION: DXA Model: Vigno C [id number] Date Scanned: 05/13/2025 3:37 PM CLINICAL HISTORY: DIAGNOSTIC Osteoporosis, unspecified osteoporosis type, unspecified pathological fracture presence . RISK FACTORS FOR OSTEOPOROSIS AND ASSOCIATED FRACTURES REPORTED BY THIS PATIENT: Please refer to Bone Health Questionnaire in the EMR CURRENT THERAPY: Please refer to Bone Health Questionnaire in the EMR TECHNICAL LIMITATIONS: L1 segment augmentation RESULTS: Lumbar spine (L2, L3, L4): 0.868 g/cm2, T-score -1.9 , Z-score 1.0 Lumbar spine: 2017 : 0.839 g/cm2 No statistically significant change Right Femoral Neck: 0.601 g/cm2, T-score -2.2 , Z-score 0.3 Right Femoral Neck: 2017 : 0.716 g/cm2 Statistically significant decrease Right Total Hip: 0.719 g/cm2, T-score -1.8 , Z-score 0.5 Right Total Hip: 2017 : 0.804 g/cm2 Statistically significant decrease Left Femoral Neck: 0.615 g/cm2, T-score -2.1 , Z-score 0.4 Left Femoral Neck: 2017 : 0.706 g/cm2 Statistically significant decrease Left Total Hip: 0.775 g/cm2, T-score -1.4 , Z-score 1.0 Left Total Hip: 2017 : 0.815 g/cm2 Statistically significant decrease CHANGE IS STATISTICALLY SIGNIFICANT IN THE SPINE OR HIP IF GREATER THAN OR EQUAL TO 0.04 g/cm2 VERTEBRAL FRACTURE ASSESSMENT Indication for VFA: Physician ordered Levels visualized: T2-L5 Results: L1 compression fracture with cement augmentation. . Presence of a single vertebral fracture increases subsequent global fracture risk, multiple fractures significantly increase fracture risk. TRABECULAR BONE ASSESSMENT TBS not performed: IMPRESSION: THE LOWEST T-SCORE IS -2.2 IN THE RIGHT HIP 1) DIAGNOSIS (based on BMD alone): OSTEOPENIA Caution: Medical conditions other than osteoporosis may cause low bone density, such as osteomalacia or renal osteodystrophy. Clinical correlation is necessary. 2) FRACTURE RISK (based on FRAX): 10-year absolute fracture risk: - major osteoporotic fracture = 22 % - hip fracture = 6.8 % - A diagnosis of Osteoporosis, a 10 year probability of hip fracture greater than or equal to 3% or a 10 year probability of any major osteoporosis-related fracture greater than or equal to 20% should be considered for treatment. - DXA scanner generated FRAX calculations may slightly differ from online FRAX calculations due to differences in software versions. - All recommendations and calculations are to be considered as guidelines and should not replace sound clinical judgement - Caution: Fracture risk may be increased independent of BMD in patients with corticosteroid use, age greater than 65 years, or a history of prior fragility fracture. RECOMMENDATIONS: Follow-up in 2 years or as clinically indicated. Patients that are taking corticosteroids, are transplant recipients or have hyperparathyroidism should have annual follow-up. Follow-up scans should always be done on the same machine for accurate comparison. FOR MORE INFORMATION ABOUT DIAGNOSIS AND TREATMENT: [facility] for Osteoporosis and Metabolic Bone Disease:? [email or web address] National Osteoporosis Foundation:? www.nof.org International Society of Clinical Densitometry www.iscd.org Tearer Press Clipping: DEZ Transcribe Date/Time: May 15 2025 6:09P Dictated by : OMAIRA CINTRON MD This examination was interpreted and the report reviewed and electronically signed by: OMAIRA CINTRON MD on May 15 2025 6:13PM EST [id number] CN -2.2 Normal [facility] BD DXA - VFA ASSESS ONLYon 0 05-13-2025 BD DXA - VFA ASSESS ONLY * * *Final Repo rt* * * DATE OF EXAM: May 13 2025 3:37PM [id number] [id number] - BD DXA - VFA ASSESS ONLY / PROCEDURE REASON: Age-related osteoporosis with current pathological fracture, initial encounter * * * * Physician Interpretation * * * * EXAMINATION: DXA BONE DENSITOMETRY BD DXA - AXIAL SKELETON, BD DXA - VFA ASSESS ONLY PATIENT DEMOGRAPHICS: Age: 85 years, Gender: Female SCANNER INFORMATION: DXA Model: [employer] Amu[employer]te C [id number] Date Scanned: 05/13/2025 3:37 PM CLINICAL HISTORY: DIAGNOSTIC Osteoporosis, unspecified osteoporosis type, unspecified pathological fracture presence . RISK FACTORS FOR OSTEOPOROSIS AND ASSOCIATED FRACTURES REPORTED BY THIS PATIENT: Please refer to Bone Health Questionnaire in the EMR CURRENT THERAPY: Please refer to Bone Health Questionnaire in the EMR TECHNICAL LIMITATIONS: L1 segment augmentation RESULTS: Lumbar spine (L2, L3, L4): 0.868 g/cm2, T-score -1.9 , Z-score 1.0 Lumbar spine: 2017 : 0.839 g/cm2 No statistically significant change Right Femoral Neck: 0.601 g/cm2, T-score -2.2 , Z-score 0.3 Right Femoral Neck: 2017 : 0.716 g/cm2 Statistically significant decrease Right Total Hip: 0.719 g/cm2, T-score -1.8 , Z-score 0.5 Right Total Hip: 2017 : 0.804 g/cm2 Statistically significant decrease Left Femoral Neck: 0.615 g/cm2, T-score -2.1 , Z-score 0.4 Left Femoral Neck: 2017 : 0.706 g/cm2 Statistically significant decrease Left Total Hip: 0.775 g/cm2, T-score -1.4 , Z-score 1.0 Left Total Hip: 2017 : 0.815 g/cm2 Statistically significant decrease CHANGE IS STATISTICALLY SIGNIFICANT IN THE SPINE OR HIP IF GREATER THAN OR EQUAL TO 0.04 g/cm2 VERTEBRAL FRACTURE ASSESSMENT Indication for VFA: Physician ordered Levels visualized: T2-L5 Results: L1 compression fracture with cement augmentation. . Presence of a single vertebral fracture increases subsequent global fracture risk, multiple fractures significantly increase fracture risk. TRABECULAR BONE ASSESSMENT TBS not performed: IMPRESSION: THE LOWEST T-SCORE IS -2.2 IN THE RIGHT HIP 1) DIAGNOSIS (based on BMD alone): OSTEOPENIA Caution: Medical conditions other than osteoporosis may cause low bone density, such as osteomalacia or renal osteodystrophy. Clinical correlation is necessary. 2) FRACTURE RISK (based on FRAX): 10-year absolute fracture risk: - major osteoporotic fracture = 22 % - hip fracture = 6.8 % - A diagnosis of Osteoporosis, a 10 year probability of hip fracture greater than or equal to 3% or a 10 year probability of any major osteoporosis-related fracture greater than or equal to 20% should be considered for treatment. - DXA scanner generated FRAX calculations may slightly differ from online FRAX calculations due to differences in software versions. - All recommendations and calculations are to be considered as guidelines and should not replace sound clinical judgement - Caution: Fracture risk may be increased independent of BMD in patients with corticosteroid use, age greater than 65 years, or a history of prior fragility fracture. RECOMMENDATIONS: Follow-up in 2 years or as clinically indicated. Patients that are taking corticosteroids, are transplant recipients or have hyperparathyroidism should have annual follow-up. Follow-up scans should always be done on the same machine for accurate comparison. FOR MORE INFORMATION ABOUT DIAGNOSIS AND TREATMENT: [facility] for Osteoporosis and Metabolic Bone Disease:? [email or web address] [email or web address]/osteo National Osteoporosis Foundation:? www.nof.org International Society of Clinical Densitometry www.iscd.org Tearer [employer] Clipping: DEZ Transcribe Date/Time: May 15 2025 6:09P Dictated by : OMAIRA CINTRON MD This examination was interpreted and the report reviewed and electronically signed by: OMAIRA CINTRON MD on May 15 2025 6:13PM EST [id number] CN -2.2 Normal [facility] Wound Ctr History AND Physic sinan 03-06-2025 Wound Ctr History & Physical [facility] [address] [place] [id number] H P Exam - Wound Care 03/06/25 1628 MR#: [id number] Acct: [id number] Name: JENNI STRICKLAND Rep #: [id number] : 1940 85 From: Frankie Arrington MD PCP: Dr. Da Castro MD Status:REG R Location: History of Present Illness Date of Service: 03/01/25 Chief Complaint: Wound of the left distal lateral calf History of Wound: This is an 85-year-old female who presented with a traumatic wound on the distal left lateral calf. The trauma occurred in September, and the traumatic wound failed to heal appr opriately. The patient had been treated with oral doses of cephalexin and doxycycline by her primary care physician. She had been using Dreft soaks topically on a daily basis. 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 She claims to ambulate liberally. She denies a history of thrombophlebitis. She denies a history of significant lower extremity swelling. The patient does not smoke. She is not diabetic. 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 classification Home Medications ???Medication ???Instructions ???Recorded ???Last Taken ???Type furosemide 20 mg tablet 20 mg PO DAILY PRN PRN leg 1 01/10/25 08:00 Rx swelling ##0 20 mg esomeprazole magnesium 40 mg 40 mg PO QAM #90 caps 07/06/24 08:00 Rx capsule,delayed release 40 mg amlodipine 2.5 mg tablet 2.5 mg PO DAILY 01/10/25 01/10/25 08:00 History 2.5 mg calcium carbonate (Oyster Shell 500 mg PO DAILY 01/10/25 01/10/25 08:00 History Calcium) 500 mg lisinopril 20 mg tablet 20 mg PO DAILY 01/10/25 01/10/25 0 8:00 History 20 mg lysine 500 mg tablet (L-Lysine) 500 mg PO DAILY 01/10/25 01/10/25 08:00 History 500 mg oxycodone 5 mg tablet 5 mg PO Q4H PRN PRN Pain Score Unknown Rx 4-10 4 days #15 tabs vit C 250 mg-vit E 90 mg-zinc 40 1 tab PO BID eye health 01/10/25 0 01/10/25 08:00 History mg-copper 1 [id number] 1 TAB capsule (PreserVision AREDS-2) zinc acetate 50 mg (zinc) capsule 50 mg PO DAILY 01/10/25 01/10/25 08:00 History (Galzin) 50 mg naproxen 500 mg tablet 500 mg PO BID PRN PRN pain 5 Unknown History oxycodone 5 mg capsule 5 mg PO Q6H PRN PRN pain 02/09/25 Unknown History levofloxacin 500 mg tablet 500 mg PO DAILY Wound Infection Unknown Rx #10 tabs Allergy/AdvReac Type Severity Reaction Status Date / Time Latex, Natural Rubber Allergy Mild Verified 02/09/25 13:43 simvastatin (From Zocor) Allergy Mild Verified 02/09/25 13:43 guaifenesin (From Robitussin) Allergy Unknown Verified 02/09/25 13:43 Penicillins Allergy Anaphylaxis Verified 02/09/25 13:43 Sulfa (Sulfonamide Allergy Unknown Verified 02/09/25 13:43 Antibiotics) Family History Mother Colon cancer Father Colon cancer Sister Breast cancer Diabetes CVA (cerebral vascular accident) Cervical cancer Brother Heart disease Daughter COPD (chronic obstructive pulmonary disease) Son Diabetes Surgical History History of cataract extraction History of amputation of right great toe History of appendectomy history of left arm surgery history of hand reconstruction Social History Smoking Status: Never smoker Physical Exam Const alert, oriented x3, no apparent distress, average body habitus and well nourished Constitutional Narrative: The patient's BMI is 25.1. General Appearance: cooperative, comfortable, well kempt and well developed Orientation / Consciousness: awake, oriented to person, oriented to place and oriented to time Exam Limitations: no limitations HEENT normocephalic and head/scalp atraumatic Head and Scalp: normal to inspection, normocephalic and atraumatic Face and Sinus: normal facial exam Nose: external nose normal External Ear: external ears normal Eyes EOMs intact bilaterally General Eye: normal appearance of both eyes Resp normal respiratory effort, normal air movement, no retractions and no use of accessory muscles Effort and Inspection: able to speak in complete sentences Skin Wound Narrative: A wound is noted on the patient's distal left lateral calf. The base of the wound demonstrates a moderate amount of slough, in addition to bioburden. The areas of pink, healthy granulation tissue graeme (more content not included)... Normal [facility] Wound Ctr History AND Physic sinan 02-23-2025 Wound Ctr History & Physical [facility] [address] [place] [address] H P Exam - Wound Care 02/23/25 1508 MR#: [id number] Acct: [id number] Name: JENNI STRICKLAND Rep #: [id number] : 1940 85 From: Frankie Arrington MD PCP: Dr. Da Castro MD Status:REG RCR Location: History of Present Illness Date of Service: 02/22/25 Chief Complaint: Wound of the left distal lateral calf History of Wound: This is an 85-year-old female who presented with a traumatic wound on the distal left lateral calf. The trauma occurred in September, and the traumatic wound failed to heal appr opriately. The patient had been treated with oral doses of cephalexin and doxycycline by her primary care physician. She had been using Dreft soaks topically on a daily basis. 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 She claims to ambulate liberally. She denies a history of thrombophlebitis. She denies a history of significant lower extremity swelling. The patient does not smoke. She is not diabetic. 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 classification Home Medications ???Medication ???Instructions ???Recorded ???Last Taken ???Type furosemide 20 mg tablet 20 mg PO DAILY PRN PRN leg 1 01/10/25 08:00 Rx swelling ##0 20 mg esomeprazole magnesium 40 mg 40 mg PO QAM #90 caps 07/06/24 08:00 Rx capsule,delayed release 40 mg amlodipine 2.5 mg tablet 2.5 mg PO DAILY 01/10/25 01/10/25 08:00 History 2.5 mg calcium carbonate (Oyster Shell 500 mg PO DAILY 01/10/25 01/10/25 08:00 History Calcium) 500 mg lisinopril 20 mg tablet 20 mg PO DAILY 01/10/25 01/10/25 0 8:00 History 20 mg lysine 500 mg tablet (L-Lysine) 500 mg PO DAILY 01/10/25 01/10/25 08:00 History 500 mg oxycodone 5 mg tablet 5 mg PO Q4H PRN PRN Pain Score Unknown Rx 4-10 4 days #15 tabs vit C 250 mg-vit E 90 mg-zinc 40 1 tab PO BID eye health 01/10/25 0 01/10/25 08:00 History mg-copper 1 [id number] 1 TAB capsule (PreserVision AREDS-2) zinc acetate 50 mg (zinc) capsule 50 mg PO DAILY 01/10/25 01/10/25 08:00 History (Galzin) 50 mg naproxen 500 mg tablet 500 mg PO BID PRN PRN pain 5 Unknown History oxycodone 5 mg capsule 5 mg PO Q6H PRN PRN pain 02/09/25 Unknown History levofloxacin 500 mg tablet 500 mg PO DAILY Wound Infection Unknown Rx #10 tabs Allergy/AdvReac Type Severity Reaction Status Date / Time Latex, Natural Rubber Allergy Mild Verified 02/09/25 13:43 simvastatin (From Zocor) Allergy Mild Verified 02/09/25 13:43 guaifenesin (From Robitussin) Allergy Unknown Verified 02/09/25 13:43 Penicillins Allergy Anaphylaxis Verified 02/09/25 13:43 Sulfa (Sulfonamide Allergy Unknown Verified 02/09/25 13:43 Antibiotics) Family History Mother Colon cancer Father Colon cancer Sister Breast cancer Diabetes CVA (cerebral vascular accident) Cervical cancer Brother Heart disease Daughter COPD (chronic obstructive pulmonary disease) Son Diabetes Surgical History History of cataract extraction History of amputation of right great toe History of appendectomy history of left arm surgery history of hand reconstruction Social History Smoking Status: Never smoker Physical Exam Const alert, oriented x3, no apparent distress, average body habitus and well nourished Constitutional Narrative: The patient's BMI is 25.1. General Appearance: cooperative, comfortable, well kempt and well developed Orientation / Consciousness: awake, oriented to person, oriented to place and oriented to time Exam Limitations: no limitations HEENT normocephalic and head/scalp atraumatic Head and Scalp: normal to inspection, normocephalic and atraumatic Face and Sinus: normal facial exam Nose: external nose normal External Ear: external ears normal Eyes EOMs intact bilaterally General Eye: normal appearance of both eyes Resp normal respiratory effort, normal air movement, no retractions and no use of accessory muscles Effort and Inspection: able to speak in complete sentences Skin Wound Narrative: An wound is noted on the patient's distal left lateral calf. The base of the wound demonstrates a small amount of yellow, nonviable, and devitalized tissue, in addition to bioburden. The areas of pin (more content not included)... Normal [facility] Wound Ctr History AND Physic sinan 02-18-2025 Wound Ctr History & Physical [facility] [address] [place] [address] H P Exam - Wound Care 02/18/25 1551 MR#: [id number] Acct: [id number] Name: JENNI STRICKLAND Rep #: [id number] : 1940 85 From: Frankie Arrington MD PCP: Dr. Da Castro MD Status:[facility] Location: History of Present Illness Date of Service: 02/16/25 Chief Complaint: Wound of the left distal lateral calf History of Wound: This is an 85-year-old female who presented with a traumatic wound on the distal left lateral calf. The trauma occurred in September, and the traumatic wound has failed to heal appropriately. The patient has been treated with oral doses of cephalexin and doxycycline by her primary care physician. She has been using Dreft soaks topically on a daily basis. 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 She claims to ambulate liberally. She denies a history of thrombophlebitis. She denies a history of significant lower extremity swelling. The patient does not smoke. She is not diabetic. 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 classification Home Medications ???Medication ???Instructions ???Recorded ???Last Taken ???Type furosemide 20 mg tablet 20 mg PO DAILY PRN PRN leg 1 01/10/25 08:00 Rx swelling ##0 20 mg esomeprazole magnesium 40 mg 40 mg PO QAM #90 caps 07/06/24 08:00 Rx capsule,delayed release 40 mg amlodipine 2.5 mg tablet 2.5 mg PO DAILY 01/10/25 01/10/25 08:00 History 2.5 mg calcium carbonate (Oyster Shell 500 mg PO DAILY 01/10/25 01/10/25 08:00 History Calcium) 500 mg lisinopril 20 mg tablet 20 mg PO DAILY 01/10/25 01/10/25 0 8:00 History 20 mg lysine 500 mg tablet (L-Lysine) 500 mg PO DAILY 01/10/25 01/10/25 08:00 History 500 mg oxycodone 5 mg tablet 5 mg PO Q4H PRN PRN Pain Score Unknown Rx 4-10 4 days #15 tabs vit C 250 mg-vit E 90 mg-zinc 40 1 tab PO BID eye health 01/10/25 0 01/10/25 08:00 History mg-copper 1 [id number] 1 TAB capsule (PreserVision AREDS-2) zinc acetate 50 mg (zinc) capsule 50 mg PO DAILY 01/10/25 01/10/25 08:00 History (Galzin) 50 mg naproxen 500 mg tablet 500 mg PO BID PRN PRN pain 5 Unknown History oxycodone 5 mg capsule 5 mg PO Q6H PRN PRN pain 02/09/25 Unknown History levofloxacin 500 mg tablet 500 mg PO DAILY Wound Infection Unknown Rx #10 tabs Allergy/AdvReac Type Severity Reaction Status Date / Time Latex, Natural Rubber Allergy Mild Verified 02/09/25 13:43 simvastatin (From Zocor) Allergy Mild Verified 02/09/25 13:43 guaifenesin (From Robitussin) Allergy Unknown Verified 02/09/25 13:43 Penicillins Allergy Anaphylaxis Verified 02/09/25 13:43 Sulfa (Sulfonamide Allergy Unknown Verified 02/09/25 13:43 Antibiotics) Family History Mother Colon cancer Father Colon cancer Sister Breast cancer Diabetes CVA (cerebral vascular accident) Cervical cancer Brother Heart disease Daughter COPD (chronic obstructive pulmonary disease) Son Diabetes Surgical History History of cataract extraction History of amputation of right great toe History of appendectomy history of left arm surgery history of hand reconstruction Social History Smoking Status: Never smoker Vital Signs Vital Signs Vital Signs: Weight Weight: 137 lb 8 oz Body Mass Index (BMI) 25.1 Physical Exam Const alert, oriented x3, no apparent distress, average body habitus and well nourished Constitutional Narrative: The patient's BMI is 25.1. General Appearance: cooperative, comfortable, well kempt and well developed Orientation / Consciousness: awake, oriented to person, oriented to place and oriented to time Exam Limitations: no limitations HEENT normocephalic and head/scalp atraumatic Head and Scalp: normal to inspection, normocephalic and atraumatic Face and Sinus: normal facial exam Nose: external nose normal External Ear: external ears normal Eyes EOMs intact bilaterally General Eye: normal appearance of both eyes Resp normal respiratory effort, normal air movement, no retractions and no use of accessory muscles Effort and Inspection: able to speak in complete sentences Extremity no calf tenderness General Extremity: Negative for clubbing or cyanosis Skin Wound Narr (more content not included)... Normal [facility] Culture, Anaerobic Any Sourc brennon 02-15-2025 CUAN left lat leg No anaerobic bacteria isolated. Normal [facility] Comment on above: Performed By: #### M 100.4001, M100.3000, M100.1999 ####[facility] [address] [place], [address] Wound Cultureon 02-14-2025 WC left lat leg Wound Culture Staphylococcus aureus Amount Growth Rare Proteus mirabilis Proteus mirabilis cefOXitin Susc Islt Doxycycline Islt CARMELA <=0.5 S Clindamycin Islt CARMELA 0.25 S Clindamycin.induced Susc Islt NEG Erythromycin Islt CARMELA <=0.25 S Gentamicin Islt CARMELA <=0.5 S Linezolid Islt CARMELA 2 S Moxifloxacin Islt CARMELA <=0.25 S Oxacillin Susc Islt <=0.25 S Tetracycline Islt CARMELA <=1 S TMP SMX Islt CARMELA <=10 S Vancomycin Islt CARMELA <=0.5 S Proteus mirabilis: REACTION Ampicillin Islt CARMELA >=32 Ampicillin+Sulbac Islt CARMELA >=32 R Cefepime Islt CARMELA <=0.12 S cefTRIAXone Islt CARMELA 1 S Ciprofloxacin Islt CARMELA <=0.06 S Gentamicin Islt CARMELA <=1 S levoFLOXacin Islt CARMELA <=0.12 S Meropenem Islt CARMELA <=0.25 S Pip+Tazo Islt CARMELA <=4 S TMP SMX Islt CARMELA <=20 S Normal [facility] Comment on above: Performed By: #### M 100.4001, M100.3000, M100.1999 ####[facility] [address] [facility] [place], [place], [id number] Gram Stainon 02-12-2025 GS Positive Normal [facility] Comment on above: Performed By: #### M 100.4001, M100.3000, M100.1999 ####[facility] [address] [facility] [place], [place], [id number] Anaerobic cultureOrdered By: Frankie Arrington on 02-11-2025 Bacteria identified Anaer cx Nom (Unsp spec) No anaerobic bacteria isolated. [facility] Gram stainOrdered By: Frankie Arrington on 02-11-2025 Microscopic observation Gram stain Nom (Unsp spec) [facility] Wound Ctr History AND Physic sinan 02-11-2025 Wound Ctr History & Physical [facility] [address] [place] [address] H P Exam - Wound Care 02/11/25 1615 MR#: [id number] Acct: [id number] Name: JENNI STRICKLAND Rep #: [id number] : 1940 85 From: Frankie Arrington MD PCP: Dr. Da Castro MD Status:REG R Location: History of Present Illness Date of Service: 02/09/25 Chief Complaint: Wound of the left distal lateral calf History of Wound: This is an 85-year-old female who presented with a traumatic wound on the distal left lateral calf. The trauma occurred in September, and the traumatic wound has failed to heal appropriately. The patient has been treated with oral doses of cephalexin and doxycycline by her primary care physician. She has been using Dreft soaks topically on a daily basis. 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 She claims to ambulate liberally. She denies a history of thrombophlebitis. She denies a history of significant lower extremity swelling. The patient does not smoke. She is not diabetic. 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 classification Home Medications ???Medication ???Instructions ???Recorded ???Last Taken ???Type furosemide 20 mg tablet 20 mg PO DAILY PRN PRN leg 1 01/10/25 08:00 Rx swelling ##0 20 mg esomeprazole magnesium 40 mg 40 mg PO QAM #90 caps 07/06/24 08:00 Rx capsule,delayed release 40 mg amlodipine 2.5 mg tablet 2.5 mg PO DAILY 01/10/25 01/10/25 08:00 History 2.5 mg calcium carbonate (Oyster Shell 500 mg PO DAILY 01/10/25 01/10/25 08:00 History Calcium) 500 mg lisinopril 20 mg tablet 20 mg PO DAILY 01/10/25 01/10/25 0 8:00 History 20 mg lysine 500 mg tablet (L-Lysine) 500 mg PO DAILY 01/10/25 01/10/25 08:00 History 500 mg oxycodone 5 mg tablet 5 mg PO Q4H PRN PRN Pain Score Unknown Rx 4-10 4 days #15 tabs vit C 250 mg-vit E 90 mg-zinc 40 1 tab PO BID eye health 01/10/25 0 01/10/25 08:00 History mg-copper 1 [id number] 1 TAB capsule (PreserVision AREDS-2) zinc acetate 50 mg (zinc) capsule 50 mg PO DAILY 01/10/25 01/10/25 08:00 History (Galzin) 50 mg naproxen 500 mg tablet 500 mg PO BID PRN PRN pain 5 Unknown History oxycodone 5 mg capsule 5 mg PO Q6H PRN PRN pain 02/09/25 Unknown History Allergy/AdvReac Type Severity Reaction Status Date / Time Latex, Natural Rubber Allergy Mild Verified 02/09/25 13:43 simvastatin (From Zocor) Allergy Mild Verified 02/09/25 13:43 guaifenesin (From Robitussin) Allergy Unknown Verified 02/09/25 13:43 Penicillins Allergy Anaphylaxis Verified 02/09/25 13:43 Sulfa (Sulfonamide Allergy Unknown Verified 02/09/25 13:43 Antibiotics) Family History Mother Colon cancer Father Colon cancer Sister Breast cancer Diabetes CVA (cerebral vascular accident) Cervical cancer Brother Heart disease Daughter COPD (chronic obstructive pulmonary disease) Son Diabetes Surgical History History of cataract extraction History of amputation of right great toe History of appendectomy history of left arm surgery history of hand reconstruction Social History Smoking Status: Never smoker Vital Signs Vital Signs Vital Signs: Weight Weight: 137 lb 8 oz Body Mass Index (BMI) 25.1 Physical Exam Const alert, oriented x3, no apparent distress, average body habitus and well nourished Constitutional Narrative: The patient's BMI is 25.1. General Appearance: cooperative, comfortable, well kempt and well developed Orientation / Consciousness: awake, oriented to person, oriented to place and oriented to time Exam Limitations: no limitations HEENT normocephalic and head/scalp atraumatic Head and Scalp: normal to inspection, normocephalic and atraumatic Face and Sinus: normal facial exam Nose: external nose normal External Ear: external ears normal Eyes EOMs intact bilaterally General Eye: normal appearance of both eyes Resp normal respiratory effort, normal air movement, no retractions and no use of accessory muscles Effort and Inspection: able to speak in complete sentences Extremity no calf tenderness General Extremity: Negative for clubbing or cyanosis Skin Wound Narrative: An ulceration is noted on the patient's distal left lateral calf. The base of the ulcerati (more content not included)... Normal [facility] CNOVon 02-01-2025 CNOV Office Visit (INTMWS) JENNI STRICKLAND V ([id number]) 1940 F Date Time Provider Department 02/01/25 8:40 AM DA CASTRO During your visit today, we recorded the following information about you: Pulse Respiration Blood pressure Weight 77/minute 16/minute 159/86 62.6 kg Da Castro MD 02/01/2025 9:03 AM Signed We discussed the wound on your leg: - I am referring you to the wound care center at [facility] for further evaluation and treatment. The wound measures 2 cm by 1 cm, is oval-shaped, and contains slough ( tissue) below the skin in the fat layer. It needs to be debrided and treated with a specific regimen, which the wound care team will provide. - We have faxed the referral to the wound care center. Please try to get in today if possible. - Continue to monitor the wound for any signs of infection, such as redness, swelling, or streaking. At this time, there is no evidence of spreading infection. We discussed your constipation: - You may take Miralax daily to help with constipation. It is not habit-forming and safe for regular use. - You can also try Metamucil or psyllium husk to bulk up your stool. - Continue eating fruits and vegetables, but avoid foods with seeds if they aggravate your gastritis. Limit cheese intake, as it may contribute to constipation. We discussed your blood pressure: - Your blood pressure today was slightly elevated, likely due to pain and activity. Continue monitoring it at home and let us know if it remains consistently high. If you have any additional concerns or if your symptoms worsen, please contact our office. Da Castro MD 02/01/2025 9:42 AM Signed Reason for Visit Follow up HPI Jenni Strickland is a 85-year-old female with a history of back fracture, presenting with a leg ulcer. Jenni reports the development of a leg ulcer following a back injection. 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 However, after receiving an injection for her back, the area became sore and eventually ulcerated. She notes that the ulcer started draining and opened up significantly after the injection. Approximately two weeks ago, her grandson observed that the ulcer had increased in size, prompting her to seek medical attention. She was unable to see her pre billing clinician due to scheduling conflicts and was referred to Dr. Barton, who advised her to seek further care for the ulcer. She has been managing the ulcer at home but reports significant pain and difficulty sleeping. She denies taking naproxen for pain management. Jenni has a history of a back fracture, for which she received an injection. She was prescribed an antibiotic post-injection but is unsure of the type. She has known allergies to penicillin and sulfa. She also has a history of multiple rib fractures and a hand injury requiring five surgeries. She has been taking Motrin 500 mg four times a day for pain management but is concerned about the potential for addiction. She also reports constipation and is hesitant to take Miralax due to concerns about dependency. She follows a diet rich in fruits and vegetables but avoids seeds due to gastritis. She notes that cheese exacerbates her constipation. Social History Tobacco Use Smoking status: Never Smokeless tobacco: Never Vaping Use Vaping status: Never Used Substance Use Topics Alcohol use: No Drug use: No Past medical history, appointments, medications, allergies reviewed. Pertinent Lab/Diagnostic Studies are reviewed and discussed today Current Outpatient Medications: naproxen (NAPROSYN) 500 mg tablet esomeprazole magnesium (NEXIUM ORAL) furosemide (LASIX) 20 mg tablet lisinopril (ZESTRIL) 20 mg tablet amLODIPine (NORVASC) 2.5 mg tablet umeclidinium (INCRUSE ELLIPTA) 62.5 mcg/actuation inhaler polyethylene glycol 3350 (MIRALAX ORAL) Lactobacillus acidophilus (FLORAJEN ACIDOPHILUS) 20 billion cell cap famotidine (PEPCID) 20 mg tablet cyanocobalamin (VITAMIN B-12) 1,000 mcg tab fluticasone (FLONASE) 50 mcg/actuation nasal spray calcium carbonate ([id number])(TUMS 500 MG CHEWABLE TAB) POTASSIUM GLUCONATE 595 MG (99 MG) TAB MAGNESIUM 250 MG TAB calcium carbonate/vitamin d3(CALCIUM 600 WITH VITAMIN D3 600 MG (1,500)-200 UNIT TAB) omeprazole (PRILOSEC) 20 mg capsule estradiol (ESTRACE) 0.01 % (0.1 mg/gram) vaginal cream Health Maintenance DTaP,Tdap,Td Vaccine(1 - Tdap) Shingrix Vaccine(2 of 3) RSV Vaccine(1 - 1-dose 75+ series) Bone Density Screening Depression Screening Anxiety Screening@ Review Of Systems Constitutional: (+) fatigue, (+) insomnia Skin: (+) leg wound drainage Gastrointestinal: (+) constipation Musculoskeletal: (+) leg pain Physical Exam BP 159/86 Pulse 77 Resp 16 Wt 62.6 kg (138 lb) S (more content not included)... Normal [facility] CNOVon 01-24-2025 CNOV Office Visit (INTMWS) JENNI STRICKLAND V ([id number]) 1940 F Date Time Provider Department 01/24/25 9:20 AM GUY BARTON INTMWS During your visit today, we recorded the following information about you: Temperature Pulse Respiration Blood pressure 98.8 degrees 92/minute 20/minute 144/86 Weight 62.4 kg Guy Barton MD 01/24/2025 9:36 AM Addendum Keep area clean and dry. Change dressing if becomes wet or soiled. Wet to dry dressing. Guy Barton MD 01/24/2025 9:44 AM Signed This note was created using [email or web address]. Subjective Patient presents with: Derm Problem Jenni Strickland is a 85 year old female. Recording using [employer] software for draft documentation of the visit was discussed with the patient/authorized sales representative livestock; all questions welcomed and answered. Patient/authorized sales representative livestock agreed to proceed Jenni is a 85-year-old female, with a history of L1 compression fracture, presenting for evaluation of a leg ulcer. Jenni reports the onset of a leg ulcer following a minor trauma a couple of months ago when she bumped her leg on a car door. Initially, there was no break in the skin, and she thought everything was fine. However, during a massage session in early November, her massage therapist noticed swelling and erythema on the leg, prompting her to seek medical attention. At that time, the wound was small, approximately the size of her little fingernail, and she was advised to visit a walk-in clinic or the ER. Jenni delayed seeking immediate care due to her 's stage 4 cancer and her responsibilities at home. She later developed severe back pain while assisting her with yard work, leading to a visit to the ER, where she was diagnosed with an L1 compression fracture. She was referred to Dr. Dixon for pain management, and received an injection for pain management and was prescribed cephalexin, which she completed for 1 week. She is allergic to penicillin and sulfa. Following the antibiotic treatment, Jenni noticed that the previously small wound on her leg had opened up, was draining, and had increased in size. She reports significant pain, particularly at night, which has been affecting her sleep. The wound has been progressively worsening, and she has been unable to manage it effectively due to her back pain. She denies fever but reports difficulty walking and performing daily activities. Jenni is currently taking an opioid medication for back pain, prescribed by her pain physician, and expresses concerns about potential addiction. She has been using Tylenol for pain management but reports it is ineffective. She denies a history of smoking or alcohol use and reports being always cold all over, including her feet, but denies cyanosis. She has a history of good pedal pulses as per her sort worker. Review of Systems Per HPI. 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 furosemide (LASIX) 20 mg tablet Take 1 tablet by mouth once daily. lisinopril (ZESTRIL) 20 mg tablet Take 1 tablet by mouth every afternoon. amLODIPine (NORVASC) 2.5 mg tablet Take 1 tablet by mouth once daily. estradiol (ESTRACE) 0.01 % (0.1 mg/gram) vaginal cream Use 1 g vaginally one time a week. umeclidinium (INCRUSE ELLIPTA) 62.5 mcg/actuation inhaler Inhale 1 Puff as instructed once daily. polyethylene glycol 3350 (MIRALAX ORAL) Take 17 g by mouth as needed (constipation). Lactobacillus acidophilus (FLORAJEN ACIDOPHILUS) 20 billion cell cap Take 460 mg by mouth once daily. famotidine (PEPCID) 20 mg tablet Take 1 tablet by mouth at bedtime as needed. cyanocobalamin (VITAMIN B-12) 1,000 mcg tab Take 1 tablet by mouth once daily. fluticasone (FLONASE) 50 mcg/actuation nasal spray Use 2 Sprays in each nostril once daily. calcium carbonate ([id number])(TUMS 500 MG CHEWABLE TAB) Take 1,000 mg by mouth two times a day as needed (GERD). POTASSIUM GLUCONATE 595 MG (99 MG) TAB Take 595 mg by mouth once daily. MAGNESIUM 250 MG TAB Take 250 mg by mouth once daily. calcium carbonate/vitamin d3(CALCIUM 600 WITH VITAM (more content not included)... Normal [facility] 25(OH)D3 SerPl-mCncon 2024 25-hydroxyvitamin D3 [Mass/Vol] 49.6 ng/mL Normal 31.0-80.0 [facility] Comment on above: Order Comment: Speci sarbjit Type: BLOOD SPECIMENOrdering Facility: [facility] Address: [address] [place] [address] Result Comment: Clas sification of 25 [place] Vitamin D status: Deficiency/Insufficiency: < or = 30 ng/ml. Sufficiency/Optimal Levels: 31-80 ng/mL Toxicity: > 100 ng/mL. Test performed by chemiluminescent immunoassay. Performed By: #### 1 989-3 ####[facility] LABCLIA [id number] [address] [address] [place] 25-hydroxyvitamin D3 [Mass/V ol]on 2025 Interpretation and review of laboratory results Normal [facility] The reference range interval was based on an analysis of samples from healthy adults and may not pertain to children from 0-18 years old. [facility] Basic metabolic 2000 panelon 2025 Anion gap [Moles/Vol] 13 mmol/L Normal 8-15 [facility] Comment on above: Order Comment: Maria Guadalupe schaffer Type: BLOOD SPECIMENOrdering Facility: [facility] Address: [address] [place] [address] Performed By: #### 2 4321-2, 2777-, 8 ####[facility] LABCLIA [id number] [address] [address] [place] Calcium [Mass/Vol] 10.0 mg/dL Normal 8.5-10.2 [facility] Comment on above: Order Comment: Speci men Type: BLOOD SPECIMENOrdering Facility: [facility] Address: [address] [place] [address] Performed By: #### 2 4321-2, 2777-1, 8 ####[facility] LABCLIA [id number] [place] [id number] [place] Chloride [Moles/Vol] 103 mmol/L Normal 98-107 [facility] Comment on above: Order Comment: Speci men Type: BLOOD SPECIMENOrdering Facility: [facility] Address: [address] [place] [address] Performed By: #### 2 4321-2, 2777-1, 2738 ####[facility] LABIA [id number] [place] [id number] [place] CO2 [Moles/Vol] 25 mmol/L Normal 22-30 [facility] Comment on above: Order Comment: Speci men Type: BLOOD SPECIMENOrdering Facility: [facility] Address: [address] [place] [address] Performed By: #### 2 4321-2, 2777-1, 2738 ####[facility] LABIA [id number] [place] [address] [place] Creatinine [Mass/Vol] 0.88 mg/dL Normal 0.58-0.96 [facility] Comment on above: Order Comment: Speci men Type: BLOOD SPECIMENOrdering Facility: [facility] Address: [address] [place] [address] Performed By: #### 2 4321-2, 2777-1, 2738 ####[facility] LABIA [id number] [place] [id number] [place] Creatinine and Glomerular filtration rate.predicted panel (S/P/Bld) 64 mL/min/1.73m??? Normal >=60 [facility] Comment on above: Order Comment: Speci men Type: BLOOD SPECIMENOrdering Facility: [facility] Address: [address] [place] [address] Result Comment: Zayra mated Glomerular Filtration Rate (eGFR) is calculated using the 2020 CKD-EPI creatinine equation. This equation utilizes serum creatinine, sex, and age as parameters. The creatinine assay has traceable calibration to isotope dilution-mass spectrometry. Refer to KDIGO guidelines for clinical interpretation. In patients with unstable renal function, e.g. those with acute kidney injury, the eGFR may not accurately reflect actual GFR. Performed By: #### 2 4321-2, 2776-08, 2731-03 ####[facility] LABCLIA [id number] [facility] [address] [address] [place] Glucose [Mass/Vol] 93 mg/dL Normal 74-99 [facility] Comment on above: Order Comment: Specallyson schaffer Type: BLOOD SPECIMENOrdering Facility: [facility] Address: [address] [place] [address] Result Comment: The [place] Diabetes Association (ADA) provides guidance for cutoff values for fasting glucose and random glucose. The ADA defines fasting as no caloric intake for at least 8 hours. Fasting plasma glucose results between 100 to 125 mg/dL indicate increased risk for diabetes (prediabetes). Fasting plasma glucose results greater than or equal to 126 mg/dL meet the criteria for diagnosis of diabetes. In the absence of unequivocal hyperglycemia, results should be confirmed by repeat testing. In a patient with classic symptoms of hyperglycemia or hyperglycemic crisis, random plasma glucose results greater than or equal to 200 mg/dL meet the criteria for diagnosis of diabetes. Reference: Standards of Medical Care in Diabetes 2016, [place] Diabetes Association. Diabetes Care. 2016.39(Suppl 1). Performed By: #### 2 4321-2, 2776-08, 2731-03 ####[facility] LABCLIA [id number] [facility] [address] [address] [place] Potassium [Moles/Vol] 4.4 mmol/L Normal 3.7-5.1 [facility] Comment on above: Order Comment: Maria Guadalupe schaffer Type: BLOOD SPECIMENOrdering Facility: [facility] Address: [address] [place] [address] Performed By: #### 2 4321-2, 2776-08, 2731-03 ####[facility] LABCLIA [id number] [facility] [address] [address] [place] Sodium [Moles/Vol] 141 mmol/L Normal 136-144 [facility] Comment on above: Order Comment: Speci men Type: BLOOD SPECIMENOrdering Facility: [facility] Address: [address] [place] [address] Performed By: #### 2 4321-2, 2777-, 2731-03 ####[facility] [id number] [place] [address] [place] Urea nitrogen [Mass/Vol] 24 mg/dL High 7-21 [facility] Comment on above: Order Comment: Speci men Type: BLOOD SPECIMENOrdering Facility: [facility] Address: [address] [place] [address] Performed By: #### 2 4321-2, 2777-, 2731-03 ####[facility] LABIA [id number] [address] [place] CNOVon 2025 CNOV Office Visit (INTMWS) JENNI STRICKLAND V ([id number]) 1940 F Date Time Provider Department 01/18/25 10:20 AM DA CASTRO INTMWS During your visit today, we recorded the following information about you: Pulse Blood pressure Weight Height 74/minute 135/77 62.8 kg 1.575 m Da Castro MD 01/27/2025 3:53 PM Addendum Reason for Visit Follow up vertebral fracture DEANGELO Arteaga is a 85-year-old female, with a history of osteoporosis and GERD, presenting for follow-up after sustaining an L1 compression fracture. 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 She felt a sudden pain in her spine during the activity but did not seek medical attention until the following day. She initially visited a walk-in clinic, where she was referred to the emergency department. A CT scan confirmed the L1 compression fracture. She was advised to follow up within a week but missed the appointment. She reports that the fracture has been painful but is gradually improving. She has been managing the pain with extra-strength Tylenol, as she cannot tolerate ibuprofen. She is also wearing a brace and being cautious with her activities. She mentions that a physician recommended a procedure involving the injection of a substance, possibly cement or glue, to prevent further deterioration of the fracture. Jenni has a history of osteoporosis and was previously on Fosamax, which was discontinued in 2017. She also has a history of GERD, which she manages with dietary modifications. She reports that her GERD symptoms are well-controlled as long as she avoids greasy and spicy foods. She denies any current issues with GERD. Social History Tobacco Use Smoking status: Never Smokeless tobacco: Never Vaping Use Vaping status: Never Used Substance Use Topics Alcohol use: No Drug use: No Past medical history, appointments, medications, allergies reviewed. Pertinent Lab/Diagnostic Studies are reviewed and discussed today Current Outpatient Medications: esomeprazole magnesium (NEXIUM ORAL) furosemide (LASIX) 20 mg tablet lisinopril (ZESTRIL) 20 mg tablet amLODIPine (NORVASC) 2.5 mg tablet naproxen (NAPROSYN) 500 mg tablet estradiol (ESTRACE) 0.01 % (0.1 mg/gram) vaginal cream umeclidinium (INCRUSE ELLIPTA) 62.5 mcg/actuation inhaler polyethylene glycol 3350 (MIRALAX ORAL) Lactobacillus acidophilus (FLORAJEN ACIDOPHILUS) 20 billion cell cap famotidine (PEPCID) 20 mg tablet cyanocobalamin (VITAMIN B-12) 1,000 mcg tab fluticasone (FLONASE) 50 mcg/actuation nasal spray calcium carbonate ([id number])(TUMS 500 MG CHEWABLE TAB) POTASSIUM GLUCONATE 595 MG (99 MG) TAB MAGNESIUM 250 MG TAB calcium carbonate/vitamin d3(CALCIUM 600 WITH VITAMIN D3 600 MG (1,500)-200 UNIT TAB) omeprazole (PRILOSEC) 20 mg capsule Health Maintenance DTaP,Tdap,Td Vaccine(1 - Tdap) Shingrix Vaccine(2 of 3) RSV Vaccine(1 - 1-dose 75+ series) Depression Screening Anxiety Screening@ Review Of Systems Gastrointestinal: (+) acid reflux Musculoskeletal: (+) back pain Physical Exam BP 135/77 Pulse 74 Ht 157.5 cm (5' 2) Wt 62.8 kg (138 lb 7.2 oz) SpO2 100% BMI 25.32 kg/m? GENERAL: NAD, alert and oriented SKIN: unremarkable, no rash or skin lesions. HEAD: normocephalic LUNGS: Clear to auscultation bilaterally, no wheezes/rhonchi/rale s. HEART: Regular rate and rhythm, no murmurs. No ectopy. EXTREMITIES: Normal, No deformities, No skin discoloration, No edema. NEURO: Awake, alert and oriented x3, cranial nerves II-XII grossly intact, normal gait, no involuntary motions Imaging: (2017) Bone Density Scan (DEXA) CT Lumbar Spine: Compression fracture at L1 Assessment and Plan 1. Age-related osteoporosis with current pathological fracture, initial encounter (M80.00XA) Osteoporosis, unspecified osteoporosis type, unspecified pathological fracture presence (M81.0) Last DEXA scan was in 2017. Previously on Fosamax, discontinued after 7 years of use. Due to significant GI issues, including a hiatal hernia, oral bisphosphonates are not ideal. - Ordered labs: Vitamin B12, PTH, Vitamin D, and phosphorus levels. - Initiated zoledronic acid infusions; patient to confirm orders with the infusion center at [place]. - Provided educational pamphlet on osteoporosis, including dietary recommendations for calcium and vitamin D supplementation. 2. Essential hypertension (I10) - bp is controlled. Cont current regimen 3. Vitamin D deficiency (E55.9) - vit d levels are normal now after replacement 4. Compression fracture of lumbar vertebra, unspecified lumbar vertebral level, initial encounter ([facility]) (S32.000A) Compression fracture at L1 confirmed by CT scan. Patient experiencing significant pain, managed with extra strength Tylenol and wearing a brace. (more content not included)... Normal [facility] Tamara 2025 [facility] Telephone (RISSA) JENNI STRICKLAND V ([id number]) 1940 F Date Time Provider Department 01/18/25 OSMAR GUERRA During your visit today, we recorded the following information about you: Sandra Thrasher LPN 2025 10:[address] Castro's office called stating that Dr. Castro placed Reclast order. Michael/Becka- please check order and convert to [place] if appropriate, then send to [facility] for scheduling. TAMMY Colón Angela 2025 12:54 PM Signed Tried calling patient twice. Unable to hear due to a bad phone connection. Marleni Mccabe 2025 2:47 PM Signed Patient called back and scheduled for 02/03 Marleni Isbell Allergies As of Date: 2025 Noted Allergy Reaction PENICILLINS 06/06/2005 10 - Anaphylaxis ROBITUSSIN A-C (CODEINE-GUAIFENES*1 10 - Anaphylaxis WASPS 03/21/2014 7 - Swelling Comments: swelling at sting site ELASTIC 06/07/2005 2 - Rash GLOVES, LATEX 06/14/2006 2 - Rash Comments: blisters HCTZ (THIAZIDES) 10/09/2015 5 - Intolerance Comments: Pins and needles sensation SULFA (SULFONAMIDE ANTIBIOTICS) 06/06/2005 5 - Intolerance ZOCOR (SIMVASTATIN) 06/19/2010 17 - Myalgia Comments: muscle ache Date Reviewed: 2025 Reviewed by: Lyndsey Fulton LPN - Fully Assessed Reason for Visit: Appointment [186] Prescriptions as of 2025 - esomeprazole magnesium (NEXIUM ORAL) Take by mouth as needed. - furosemide (LASIX) 20 mg tablet Take 1 tablet by mouth once daily. - lisinopril (ZESTRIL) 20 mg tablet Take 1 tablet by mouth every afternoon. - amLODIPine (NORVASC) 2.5 mg tablet Take 1 tablet by mouth once daily. - naproxen (NAPROSYN) 500 mg tablet Take 1 tablet by mouth two times a day as needed (for pain/inflammation). Take with food. - omeprazole (PRILOSEC) 20 mg capsule Take 1 capsule by mouth daily before breakfast. 1/2 hr before meal. - estradiol (ESTRACE) 0.01 % (0.1 mg/gram) vaginal cream Use 1 g vaginally one time a week. - umeclidinium (INCRUSE ELLIPTA) 62.5 mcg/actuation inhaler Inhale 1 Puff as instructed once daily. - polyethylene glycol 3350 (MIRALAX ORAL) Take 17 g by mouth as needed (constipation). - Lactobacillus acidophilus (FLORAJEN ACIDOPHILUS) 20 billion cell cap Take 460 mg by mouth once daily. - famotidine (PEPCID) 20 mg tablet Take 1 tablet by mouth at bedtime as needed. - cyanocobalamin (VITAMIN B-12) 1,000 mcg tab Take 1 tablet by mouth once daily. - fluticasone (FLONASE) 50 mcg/actuation nasal spray Use 2 Sprays in each nostril once daily. - calcium carbonate (pge8241)(TUMS 500 MG CHEWABLE TAB) Take 1,000 mg by mouth two times a day as needed (GERD). - POTASSIUM GLUCONATE 595 MG (99 MG) TAB Take 595 mg by mouth once daily. - MAGNESIUM 250 MG TAB Take 250 mg by mouth once daily. - calcium carbonate/vitamin d3(CALCIUM 600 WITH VITAMIN D3 600 MG (1,500)-200 UNIT TAB) Take 1 tablet by mouth once daily. Problem List As Of Date 2025 Noted Resolved Esophagitis, unspecified [K20.90] 12/09/2018 Acute gastritis [535.0] 12/09/2018 Diverticulitis [K57.92] Disorder of bone and cartilage, unspecified [M8* 12/09/2018 DIAPHRAGMATIC HERNIA [K44.9] FAMILY HX GI MALIGNANCY [Z80.0] 08/22/2008 Urticaria [L50.9] 02/01/2010 Dyslipidemia (high LDL; low HDL) [E78.5] 02/01/2010 Closed fracture of metatarsal bone(s) [S92.309A]03/12/2011 12/09/2018 Umbilical hernia without mention of obstruction*06/29/20 12 Cramp of both lower extremities [R25.2] 04/03/2015 Leg cramps [R25.2] 04/03/2015 12/09/2018 Tingling in extremities [R20.2] 04/03/2015 12/09/2018 COPD (chronic obstructive pulmonary disease) (H*04/03/2015 Essential hypertension [I10] 11/13/2015 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*12/18/2020 H/O amputation of lesser toe, right (HCC) [Z89.*2022 Age-related osteoporosis with current pathologi*2025 Encounter Status:Closed by MARLENI ISBELL on 01/18/25 Normal [facility] No Panel Informationon 01-18 Interpretation and review of laboratory results Normal [facility] PHOSPHORUS INORGANICon 01-18 Phosphate [Mass/Vol] 3.8 mg/dL 2.7 - 4 .8 mg/dL [facility] PTH INTACTon 2025 Parathyrin.intact [Mass/Vol] 55 pg/mL 15 - 65 pg/mL [facility] PTH-Intact SerPl-mCncon 12-24 Parathyrin.intact [Mass/Vol] 55 pg/mL Normal 15-65 [facility] Comment on above: Order Comment: Speci men Type: BLOOD SPECIMENOrdering Facility: [facility] Address: [address] [place] [address] Performed By: #### 2 4321-2, 2777-1, 8 ####[facility] LABCLIA [id number] [address] STATES OF [facility] Phosphate SerPl-mCncon 01-18 Phosphate [Mass/Vol] 3.8 mg/dL Normal 2.7-4.8 [facility] Comment on above: Order Comment: Speci men Type: BLOOD SPECIMENOrdering Facility: [facility] Address: [address] [place] [address] Performed By: #### 2 4321-2, 2777-1, 8 ####[facility] LABCLIA [id number] [place] [id number] [place] VITAMIN D 25 HYDROXYon 01-18 25-hydroxyvitamin D3 [Mass/Vol] 49.6 ng/mL 31.0 - 80.0 ng/mL [facility] Comment on above: Classification of 25 [place] Vitamin D status: Deficiency/Insufficiency: < or = 30 ng/ml. Sufficiency/Optimal Levels: 31-80 ng/mL Toxicity: > 100 ng/mL. Test performed by chemiluminescent immunoassay. Absolute lymphocyte countOrd ered By: Gus Garza on 01-10-2025 Lymphocytes Auto (Unsp spec) [#/Vol] 1.39 10*3/uL 0.83-4.51 [facility] Absolute neutrophil countOrd ered By: Gus Garza on 01-10-2025 Neutrophils (Bld) [#/Vol] 3.4 10*3/uL 2.0-7.7 [facility] Anion gap in Serum or Plasma Ordered By: Gus Garza on 01-10-2025 Anion gap [Moles/Vol] 10 mmol/L 5-15 [facility] Automated lymphocyte count a s percentage of total leukocytesOrdered By: Gus Garza on 01-10-2025 Lymphocytes/100 WBC Auto (Unsp spec) 25.1 % 19-41 [facility] BUN/creatinine ratioOrdered By: Gus Garza on 01-10-2025 Urea nitrogen/Creatinine [Mass ratio] 23.9 mg/mg High 10-20 [facility] Basophil percentageOrdered B y: Gus Garza on 01-10-2025 Basophils/100 WBC (Bld) 0.7 % 0-1 [facility] Bilirubin Test strip Ql (U)O rdered By: Gus Garza on 01-10-2025 Bilirubin Ql (U) Negative Negative [facility] Bilirubin, totalOrdered By: Gus Garza on 01-10-2025 Bilirubin [Mass/Vol] 0.25 mg/dL 0.00-1.30 [facility] CBC W/Diff, Automatedon 12-23 Absolute Lymph 1.39 X10 3/uL Normal 0.83-4.51 [facility] Comment on above: Performed By: #### L 100.0100, L500.4050 #### [facility] Laboratory [address] [place], [address] Absolute Neut 3.4 X10 3/uL Normal 2.0-7.7 [facility] Comment on above: Performed By: #### L 100.0100, L500.4050 #### [facility] [address] [place], [address] Basophils/100 WBC (Bld) 0.7 % Normal 0-1 [facility] Comment on above: Performed By: #### L 100.0100, L500.4050 #### [facility] [address] [place], [address] Eosinophils/100 WBC (Bld) 1.4 % Normal 0-5 [facility] Comment on above: Performed By: #### L 100.0100, L500.4050 #### [facility] [address] [place], [address] Erythrocyte distribution width (RBC) [Ratio] 12.0 % Normal 11.6-14.6 [facility] Comment on above: Performed By: #### L 100.0100, L500.4050 #### [facility] [address] [place], [address] Hematocrit (Bld) [Volume fraction] 41.4 % Normal 37-47 [facility] Comment on above: Performed By: #### L 100.0100, L500.4050 #### [facility] [address] [place], [address] Hemoglobin (Bld) [Mass/Vol] 13.9 g/dL Normal 12.0-15.0 [facility] Comment on above: Performed By: #### L 100.0100, L500.4050 #### [facility] [address] [place], [address] IG% 0.200 Normal 0.0-0.9 [facility] Comment on above: Result Comment: IG% - Immature Granulocytes (promyelocytes, myelocytes and metamyelocytes) > 1% indicates that a LEFT SHIFT is Present. Performed By: #### L 100.0100, L500.4050 #### [facility] [address] [place], [address] Lymphocytes/100 WBC (Bld) 25.1 % Normal 19-41 [facility] Comment on above: Performed By: #### L 100.0100, L500.4050 #### [facility] [address] [place], [address] MCH (RBC) [Entitic mass] 30.1 pg Normal 27.0-32.0 [facility] Comment on above: Performed By: #### L 100.0100, L500.4050 #### [facility] [address] [place], [address] MCHC (RBC) [Mass/Vol] 33.6 g/dL Normal 32-36 [facility] Comment on above: Performed By: #### L 100.0100, L500.4050 #### [facility] [address] [place], [address] MCV (RBC) [Entitic vol] 89.6 fL Normal 81-99 [facility] Comment on above: Performed By: #### L 100.0100, L500.4050 #### [facility] [address] [place], [address] Monocytes/100 WBC (Bld) 10.7 % High 0-10 [facility] Comment on above: Performed By: #### L 100.0100, L500.4050 #### [facility] [address] [place], [address] Neutrophils/100 WBC (Bld) 61.9 % Normal 47-70 [facility] Comment on above: Performed By: #### L 100.0100, L500.4050 #### [facility] [address] [place], [address] Nucleated RBC (Bld) [#/Vol] 0 10*3/uL Normal 0-5 [facility] Comment on above: Performed By: #### L 100.0100, L500.4050 #### [facility] [address] [place], [address] Platelet mean volume (Bld) [Entitic vol] 9.4 fL Normal 6.2-12.0 [facility] Comment on above: Performed By: #### L 100.0100, L500.4050 #### [facility] [address] [place], [address] Platelets (Bld) [#/Vol] 238 10*3/uL Normal 150-450 [facility] Comment on above: Performed By: #### L 100.0100, L500.4050 #### [facility] [address] [place], [address] RBC (Bld) [#/Vol] 4.62 10*6/uL Normal 4.2-5.4 [facility] Comment on above: Performed By: #### L 100.0100, L500.4050 #### [facility] [address] [place], [address] RDW SD 39.0 fl Normal 35.1-43.9 [facility] Comment on above: Performed By: #### L 100.0100, L500.4050 #### [facility] Laboratory [address] [place], [address] WBC (Bld) [#/Vol] 5.5 10*3/uL Normal 4.4-11.0 [facility] Comment on above: Performed By: #### L 100.0100, L500.4050 #### [facility] [address] [place], [address] Carbon dioxide, total [Moles /volume] in Central venous bloodOrdered By: Gus Garza on 01-10-2025 CO2 [Moles/Vol] 22.2 mmol/L 21.0-32.0 [facility] Chloride assayOrdered By: Dinesh Garza on 01-10-2025 Chloride [Moles/Vol] 110 mmol/L High 98-108 [facility] Comprehensive Metabolic Prof ilon 01-10-2025 Albumin [Mass/Vol] 3.8 g/dL Normal 3.4-4.8 [facility] Comment on above: Performed By: #### L 100.0100, L500.4050 #### [facility] Laboratory [address] [place], [address] Albumin/Globulin [Mass ratio] 1.2 {ratio} Normal 0.9-2.4 [facility] Comment on above: Performed By: #### L 100.0100, L500.4050 #### [facility] Laboratory [address] [place], [address] ALK PHOS 107 U/L High 35-104 [facility] Comment on above: Performed By: #### L 100.0100, L500.4050 #### [facility] Laboratory [address] [place], [address] ALT [Catalytic activity/Vol] 11 U/L Normal <=34 [facility] Comment on above: Performed By: #### L 100.0100, L500.4050 #### [facility] [address] [place], [address] AST [Catalytic activity/Vol] 24 U/L Normal <=31 [facility] Comment on above: Performed By: #### L 100.0100, L500.4050 #### [facility] Laboratory [address] [place], [address] Bilirubin [Mass/Vol] 0.25 mg/dL Normal 0.00-1.30 [facility] Comment on above: Performed By: #### L 100.0100, L500.4050 #### [facility] [address] [place], [address] BUN/CRE 23.9 RATIO High 10-20 [facility] Comment on above: Performed By: #### L 100.0100, L500.4050 #### [facility] [address] [place], [address] Calcium [Mass/Vol] 9.4 mg/dL Normal 7.6-11.0 [facility] Comment on above: Performed By: #### L 100.0100, L500.4050 #### [facility] [address] [place], [address] Chloride [Moles/Vol] 110 mmol/L High 98-108 [facility] Comment on above: Performed By: #### L 100.0100, L500.4050 #### [facility] [address] [place], [address] CO2 [Moles/Vol] 22.2 mmol/L Normal 21.0-32.0 [facility] Comment on above: Performed By: #### L 100.0100, L500.4050 #### [facility] [address] [place], [address] Creatinine [Mass/Vol] 0.87 mg/dL Normal 0.70-1.20 [facility] Comment on above: Performed By: #### L 100.0100, L500.4050 #### [facility] [address] [place], [address] ECRCL 43.87 ml/min Low 50-250 [facility] Comment on above: Performed By: #### L 100.0100, L500.4050 #### [facility] Laboratory [address] [place], [address] GAP 10 Normal 5-15 [facility] Comment on above: Performed By: #### L 100.0100, L500.4050 #### [facility] Laboratory [address] [place], [address] GFR/1.73 sq M.predicted among non-blacks MDRD (S/P/Bld) [Vol rate/Area] 65 mL/min/{1.73_m2} Normal >60 [facility] Comment on above: Result Comment: mL/m in/1.73m2 CKD-EPI Creatinine Equation (2020) Performed By: #### L 100.0100, L500.4050 #### [facility] Laboratory [address] [place], [address] Globulin (S) [Mass/Vol] 3.0 g/dL Normal 2.2-4.2 [facility] Comment on above: Performed By: #### L 100.0100, L500.4050 #### [facility] [address] [place], [address] Glucose [Mass/Vol] 91 mg/dL Normal 70-99 [facility] Comment on above: Performed By: #### L 100.0100, L500.4050 #### [facility] Laboratory [address] [place], [address] Potassium [Moles/Vol] 3.9 mmol/L Normal 3.3-5.1 [facility] Comment on above: Performed By: #### L 100.0100, L500.4050 #### [facility] [address] [place], [address] Sodium [Moles/Vol] 142 mmol/L Normal 133-145 [facility] Comment on above: Performed By: #### L 100.0100, L500.4050 #### [facility] [address] [place], [address] T PROT 6.8 g/dL Normal 5.9-8.4 [facility] Comment on above: Performed By: #### L 100.0100, L500.4050 #### [facility] Laboratory [address] [place], [address] Urea nitrogen [Mass/Vol] 21 mg/dL High - [facility] Comment on above: Performed By: #### L 100.0100, L500.4050 #### [facility] Laboratory [address] [place], [address] Discharge Instructionon 12-23 Discharge Instruction [facility] Medical Records Department [address] [place] [address] Instructions for Home/Discharge Instructions 01/10/25 1818 MR#: [id number] Acct: [id number] Name: JENNI STRICKLAND Rep #: [id number] : 1940 84 From: Jose David Brown MD PCP: Dr. Da Castro MD Status:ADM LINDA Discharge Instructions Diet Discharge Diet: No restrictions DC O2, CPAP, BIPAP needs Home O2 Discharge instructions: No Dressing / Incision Discharge Activity: Return to Normal Activity Dressing / Incision Call your doctor if you observe: Fever of 101 or Higher, Shortness of breath, Dizziness, Fainting spells, Swelling in the ankles, Chest pain and Increased palpitations (irregular heartbeat) Follow Up Care Test Results: Test results from this visit will be discussed in further detail at your follow-up appointment, if applicable. Discharge Plan Admission Admit Date/Time: 01/10/25 09:47 Attending Provider: Jose David Brown Primary Care Provider: Da Castro Consulting Providers: Kavitha Renae Discharge Orders/Prescriptions Prescriptions: New oxycodone 5 mg Tablet 5 mg PO Q4H PRN PRN (Reason: Pain Score 4-10) 4 Days Qty: 15 0RF Continued furosemide 20 mg tablet 20 mg PO DAILY PRN PRN (Reason: leg swelling) Qty: 0 0RF lisinopril 20 mg tablet 20 mg PO DAILY amlodipine 2.5 mg tablet 2.5 mg PO DAILY calcium carbonate [Oyster Shell Calcium] 500 mg calcium (1,250 mg) tablet 500 mg PO DAILY Galzin 50 mg (zinc) capsule 50 mg PO DAILY lysine [L-Lysine] 500 mg tablet 500 mg PO DAILY PreserVision AREDS-2 250-90-40-1 mg capsule 1 tab PO BID esomeprazole magnesium 40 mg capsule,delayed release(DR/EC) 40 mg PO QAM Qty: 90 1RF Referrals / Follow Up: Kavitha Renae MD [Med Staff - Active Staff] - 01/11/25 3:00 pm Da Castro MD [Primary Care Provider] - Within 1 Week Disposition Disposition (needs filled in before D/C Order can be placed): Home, Self Care 01/11/25 0706 Jose David Brown MD CC: Dr. Kavitha Renae MD; Dr. Da Castro MD Signed Normal [facility] Emergency Department Summary on 01-10-2025 Emergency Department Summary [facility] Medical Records Department [address] [place] [address] Emergency Department Summary 01/10/25 MR#: [id number] Acct: [id number] Name: JENNI STRICKLAND Rep #: [id number] : 1940 84 From: Gus Garza DO PCP: Dr. Da Castro MD Status:ADM LINDA Location: [place] [address] HPI History of Present Illness Chief Complaint: Back Informant: patient and EMS Narrative Narrative: 84-year-old female presenting to the emergency room with low back pain. Patient states that last week she was seen in the emergency department for sudden onset of back pain. She states that she was bent over putting gas in the mower when she suddenly got a sharp pain in the midline of the lumbar region. She states that she underwent a CT scan that showed a compression fracture. Review of the chart shows a mild compression fracture of L1 was read by radiology. Patient denies any radicular symptoms. She denies any difficulty with bowel or bladder control. Last bowel movement was yesterday. She states she was given 3 days of pain medication and has no more that pain medicine. She states she was given the name of her doctor to follow-up with but she does not know that Dr. And did not schedule follow-up with them or primary care. She states last night she took a Tylenol PM and slept through the night but this morning she was unable to get up out of bed. She states her has stage IV cancer and cannot really care for so he called the ambulance. She denies any fevers. No rashes. She states that she has a IcyHot patch on the low back. She denies any abdominal pain. No urinary symptoms. [facility] Medical History (Updated 01/10/25 @ 09:[address] Gus Garza, ) Psoriasis Urticaria Acute gastritis Esophagitis Diverticulitis of colon Chronic cough Hoarseness Overweight HUMPHRIES (dyspnea on exertion) Stage 1 mild COPD by GOLD classification Home Medications ???Medication ???Instructions ???Recorded ???Last Taken ???Type furosemide 20 mg tablet 20 mg PO DAILY PRN PRN leg 1 01/10/25 Rx swelling ##0 esomeprazole magnesium 40 mg 40 mg PO QAM #90 caps 07/06/24 Rx capsule,delayed release amlodipine 2.5 mg tablet 2.5 mg PO DAILY 01/10/25 01/10/25 History calcium carbonate (Oyster Shell 500 mg PO DAILY 01/10/25 01/10/25 History Calcium) lisinopril 20 mg tablet 20 mg PO DAILY 01/10/25 01/10/25 H istory lysine 500 mg tablet (L-Lysine) 500 mg PO DAILY 01/10/25 01/10/25 History zinc acetate 50 mg (zinc) capsule 50 mg PO DAILY 01/10/25 01/10/25 History (Galzin) Allergy/AdvReac Type Severity Reaction Status Date / Time Latex, Natural Rubber Allergy Mild Verified 01/10/25 07:27 simvastatin (From Zocor) Allergy Mild Verified 01/10/25 07:27 guaifenesin (From Robitussin) Allergy Unknown Verified 01/10/25 07:27 Penicillins Allergy Anaphylaxis Verified 01/10/25 07:27 Sulfa (Sulfonamide Allergy Unknown Verified 01/10/25 07:27 Antibiotics) Family History Mother Colon cancer Father Colon cancer Sister Breast cancer Diabetes CVA (cerebral vascular accident) Cervical cancer Brother Heart disease Daughter COPD (chronic obstructive pulmonary disease) Son Diabetes Surgical History History of cataract extraction History of amputation of right great toe History of appendectomy history of left arm surgery history of hand reconstruction Social History Smoking Status: Never smoker ROS ROS ED Constitutional Constitutional ED: Denies chills, fever(s) or weight loss Eyes Eyes: Denies change in vision or diplopia ENT ENT ED: Denies ear pain, rhinorrhea or sore throat Cardiovascular Cardiovascular: Denies chest pain, orthopnea, palpitations or racing heartbeat Respiratory/Chest Respiratory/Chest: Denies cough, dyspnea or orthopnea Gastrointestinal Gastrointestinal: Denies abdominal pain, diarrhea, nausea or vomiting Genitourinary Genitourinary ED: Denies dysuria, hematuria or urinary frequency Musculoskeletal Musculoskeletal: Reports back pain; Denies arthralgias, myalgias or neck pain Integumentary Denies abscess or rash Neurologic Neurologic: Denies headache(s), paresthesias or weakness Psychiatric Psychiatric: Denies anxiety, depression, suicidal ideation or suicidal thoughts Endocrine Endocrinology: Denies polydipsia, polyphagia or polyuria Allergic/Immunologic Allergic/Immunologic ED: Denies mouth swelling, tongue swelling or urticaria EXAM Physical Exam Narrative Exam Narrative: Elderly female sitting slightly laying back in the bed. Const Vital Signs: 01/10/25 07:24 Temperature 97.8 F Temperature Source (more content not included)... Normal [facility] Eosinophil percentageOrdered By: Gus Garza on 01-10-2025 Eosinophils/100 WBC (Bld) 1.4 % 0-5 [facility] Erythrocyte distribution wid th ratioOrdered By: Gus Garza on 01-10-2025 Erythrocyte distribution width (RBC) [Ratio] 12.0 % 11.6-14.6 [facility] Erythrocyte distribution wid th standard deviationOrdered By: Gus Garza on 01-10-2025 Erythrocyte distribution width (RBC) [Ratio] 39.0 fl 35.1-43.9 [facility] Glomerular filtration rate ( GFR) estimation/1.73 sq m using serum, plasma, or whole bOrdered By: Gus Garza on 01-10-2025 GFR/1.73 sq M.predicted among non-blacks MDRD (S/P/Bld) [Vol rate/Area] 65 mL/min/{1.73_m2} >60 [facility] Comment on above: mL/min/1.73m2 CKD-EP I Creatinine Equation (2020) H AND P Exam - [place] 01-10-2025 H&P Exam - Hospitalist [facility] Medical Records Department [address] [place] [address] H P Exam - Hospitalist 01/10/25 1653 MR#: [id number] Acct: [id number] Name: JENNI STRICKLAND Rep #: [id number] : 1940 84 From: Jose David Brown MD PCP: Dr. Da Castro MD Status:ADM LINDA Location: [place] [id number] [facility] General Date of Admission: 01/10/25 HPI Narrative JENNI STRICKLAND, is a 84 F who presents to the hospital with increasing lumbar back pain. Is localized to her midline and does not radiate down her legs. She states that about a week ago on she was filling up her 0 turn lawnmower and asked when she noticed the pain, it got more severe the next day so she went to her PCPs office who referred her to urgent care who then sent her to the hospital. While at the hospital she was given some pain medication and was discharged home with a pain management follow-up however she did not recognize the name and did not realize that the provider was local so she never made an appointment. She presented today because of the continued back pain in her lumbar spine. CT scan shows little bit of progression in my opinion of her compression fracture of L1. She was admitted for pain control and MRI imaging. She denies any red flag symptoms with loss of bowel or bladder function and control. [facility] Medical History (Updated 01/10/25 @ 09:[address] 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 Home Medications ???Medication ???Instructions ???Recorded ???Last Taken ???Type furosemide 20 mg tablet 20 mg PO DAILY PRN PRN leg 1 01/10/25 08:00 Rx swelling ##0 20 mg esomeprazole magnesium 40 mg 40 mg PO QAM #90 caps 07/06/24 08:00 Rx capsule,delayed release 40 mg amlodipine 2.5 mg tablet 2.5 mg PO DAILY 01/10/25 01/10/25 08:00 History 2.5 mg calcium carbonate (Oyster Shell 500 mg PO DAILY 01/10/25 01/10/25 08:00 History Calcium) 500 mg lisinopril 20 mg tablet 20 mg PO DAILY 01/10/25 01/10/25 0 8:00 History 20 mg lysine 500 mg tablet (L-Lysine) 500 mg PO DAILY 01/10/25 01/10/25 08:00 History 500 mg vit C 250 mg-vit E 90 mg-zinc 40 1 tab PO BID eye health 01/10/25 0 01/10/25 08:00 History mg-copper 1 vb-kflryg-thuify 1 TAB capsule (PreserVision AREDS-2) zinc acetate 50 mg (zinc) capsule 50 mg PO DAILY 01/10/25 01/10/25 08:00 History (Galzin) 50 mg Allergy/AdvReac Type Severity Reaction Status Date / Time Latex, Natural Rubber Allergy Mild Verified 01/10/25 07:27 simvastatin (From Zocor) Allergy Mild Verified 01/10/25 07:27 guaifenesin (From Robitussin) Allergy Unknown Verified 01/10/25 07:27 Penicillins Allergy Anaphylaxis Verified 01/10/25 07:27 Sulfa (Sulfonamide Allergy Unknown Verified 01/10/25 07:27 Antibiotics) Family History Mother Colon cancer Father Colon cancer Sister Breast cancer Diabetes CVA (cerebral vascular accident) Cervical cancer Brother Heart disease Daughter COPD (chronic obstructive pulmonary disease) Son Diabetes Surgical History History of cataract extraction History of amputation of right great toe History of appendectomy history of left arm surgery history of hand reconstruction Social History Smoking Status: Never smoker ROS Constitutional Constitutional: Denies chills, fatigue, fever(s) or malaise Eyes Eyes: Denies blurry vision ENT HEENT: Denies headache(s) or nasal discharge Cardiovascular Cardiovascular: Denies chest pain, dyspnea on exertion or syncope Respiratory/Chest Respiratory/Chest: Denies cough, shortness of breath at rest or shortness of breath with exertion Gastrointestinal Gastrointestinal: Denies constipation, diarrhea, nausea or vomiting Genitourinary Genitourinary: Denies dysuria Musculoskeletal Musculoskeletal: Reports back pain Neurologic Neurologic: Denies focal weakness, numbness or tremor(s) Psychiatric Psychiatric: Denies anxiety or depression Vital Signs Vital Signs Vital Signs: 01/10/25 07:24 01/10/25 09:50 01/10/25 10:44 Temperature 97.8 F 98 F 98.1 F Temperature Source Oral Oral Pulse Rate 67 78 63 Respiratory Rate 18 19 H 18 Blood Pressure 114/89 H 147/78 H 157/65 H Blood Pressure Mean 97 101 95 Blood Pressure Source Monitor Blood Pressure Position Semi-Fowlers Blood Pressure Location Right Arm Pulse Ox 95 97 97 Oxygen Delivery Method Room Air Room Air 01/10/25 14:42 Temperature 98.0 F Temperature Source Oral P (more content not included)... Normal [facility] Hematocrit Auto (Bld) [Volum e fraction]Ordered By: Gus Garza on 01-10-2025 Hematocrit (Bld) [Volume fraction] 41.4 % 37-47 [facility] Hemoglobin measurementOrdere d By: Gus Garza on 01-10-2025 Hemoglobin (Bld) [Mass/Vol] 13.9 g/dL 12.0-15.0 [facility] Immature granulocytes/100 WB C Auto (Bld)Ordered By: Gus Garza on 01-10-2025 Immature granulocytes/100 WBC (Bld) 0.200 % 0.0-0.9 [facility] Comment on above: IG% - Immature Granu locytes (promyelocytes, myelocytes and metamyelocytes) > 1% indicates that a LEFT SHIFT is Present. Ketones Test strip Ql (U)Ord ered By: Gus Garza on 01-10-2025 Ketones Ql (U) Negative Negative [facility] Laboratory - Chemistry and C hemistry - challengeOrdered By: Gus Garza on 01-10-2025 AST [Catalytic activity/Vol] 24 U/L <32 [facility] MCV (mean corpuscular volume ) determinationOrdered By: Gus Garza on 01-10-2025 MCV (RBC) [Entitic vol] 89.6 fL 81-99 [facility] Magnetic resonance imaging r eportOrdered By: Kaleb Alvarado on 01-10-2025 Study report [facility] Imaging Services [address] [place] [address] Spine Lumbar (Routine) MR#: [id number] Acct: [id number] Name: JENNI STRICKLAND Rep #: [id number] : 1940 F 84 From: David Alvarado MD PCP: Dr. Da Castro MD Status: ADM I NO Study:Spine Lumbar (Routine) Date of Exam: 01/10/25 Exam# [id number] Ordering Dr: Jose David Brown MD PROCEDURE: MRI SPINE LUMBAR (ROUTINE) 01/10/2025 REASON FOR EXAM: COMPRESSION FRACTURE EVALUATION Lumbar pain. TECHNIQUE: MRI lumbar spine without contrast. Multiplanar and multisequence images were obtained without IV contrast administration. COMPARISON: CT lumbar spine 01/10/2025 and 12/31/2024 FINDINGS: Vertebrae: There is acute progression of a ueds-nx-opuitjeo compression fractureof L1 with marrow edema, visualized fracture lines at the superior endplate and further vertebral body height loss compared to 12/31/2024. Minimal retropulsion of the posterior superior wall of L1 resulting in minimal spinal canal stenosis. The retropulsion of the posterior superior L1 wall does not contact or compress the distal spinal cord. Alignment: Grade 1 anterolisthesis of L4 on L5 Conus Medullaris: Distal spinal cord demonstrates normal signal characteristics and contour. L1-2: L1-2 mild diffuse disc bulge resulting in minimal spinal canal stenosis without mass effect on the nerve roots. Mild bilateral neural foraminal stenosis without mass effect on the nerve roots L2-3: L2-3 minimal diffuse disc bulge. Minimal spinal canal stenosis and mild bilateral neural foraminal stenosis without mass effect on the nerve roots L3-4: L3-4 diffuse disc bulge and mild bilateral facet degenerative change. Moderate spinal canal stenosis. Disc bulge contacts the nerve roots in the ventral spinal canal without compression of the nerve roots. Disc bulge contacts the bilateral L3 nerve roots without compression of the nerve roots. L4-5: L4-5 diffuse disc bulge, disc uncovering from grade 1 anterolisthesis and advanced bilateral facet degenerative changes results in severe spinal canal stenosis with compression of the nerve roots in the spinal canal. Ylxk-xh-ymdtutdh bilateral neural foraminal stenosis without mass effect on the nerve roots L5-S1: L5-S1 diffuse disc bulge, asymmetric to the left and mild bilateral facetdegenerative change. Minimal spinal canal stenosis without mass effect on the nerve roots. Minimal right neural foraminalstenosis without mass effect on the nerve root. Moderate left neural foraminal stenosis. Disc bulge contacts the left L5 nerve root without compression of the nerve root. Sacrum: Partially visualized upper sacrum appears intact Incidental notation made of bilateral renal cysts. MRI/Spine Lumbar (Routine) IMPRESSION: 1. Acute progression of ublh-kf-sunglkyc L1 compression fracture with marrow edema. Minimal retropulsion of posterior superior wall of L1 resulting in minimal spinal canal stenosis without mass effect on thespinal cord. 2. Grade 1 anterolisthesis of L4 on L5. 3. Severe L4-5 spinal canal stenosis with compression of the nerve roots withinthe spinal canal. 4. Multilevel degenerative changes with varying degrees of spinal canal and neural foraminal stenosis, as detailed above. Reading Location[facility] CC: Dr. Da Castro MD; Dr. Jose David Brown MD ~ [employer] Clipping: Signed [facility] Mean corpuscular hemoglobin (MCH) determinationOrdered By: Gus Garza on 01-10-2025 MCH (RBC) [Entitic mass] 30.1 pg 27.0-32.0 [facility] Mean corpuscular hemoglobin concentration (MCHC) determinationOrdered By: Gus Garza on 01-10-2025 MCHC (RBC) [Mass/Vol] 33.6 g/dL 32-36 [facility] Mean platelet volume determi nationOrdered By: Gus Garza on 01-10-2025 Platelet mean volume (Bld) [Entitic vol] 9.4 fL 6.2-12.0 [facility] Microscopic analysis of urin e for red blood cells (RBC)Ordered By: Gus Garza on 01-10-2025 Microscopic analysis of urine for red blood cells (RBC) 0 SEEN /hpf 0-5 [facility] Monocyte percentageOrdered B y: Gus Garza on 01-10-2025 Monocytes/100 WBC (Bld) 10.7 % High 0-10 [facility] Mucus LM Ql (Urine sed)Order ed By: Gus Garza on 01-10-2025 Mucus Ql (Urine sed) 0 SEEN /hpf [facility] Neutrophil percentageOrdered By: Gus Garza on 01-10-2025 Neutrophils/100 WBC (Bld) 61.9 % 47-70 [facility] Nitrite Test strip Ql (U)Ord ered By: Gus Garza on 01-10-2025 Nitrite Ql (U) Negative Negative [facility] Nucleated red blood cell per centageOrdered By: Gus Garza on 01-10-2025 Nucleated RBC/100 WBC (Bld) [Ratio] 0 % 0-5 [facility] Platelet countOrdered By: Dinesh Garza on 01-10-2025 Platelets (Bld) [#/Vol] 238 10*3/uL 150-450 [facility] Potassium measurement (mass/ volume)Ordered By: Gus Garza on 01-10-2025 Potassium (Unsp spec) [Mass/Vol] 3.9 mmol/L 3.3-5.1 [facility] Protein Test strip Ql (U)Ord ered By: Gus Garza on 01-10-2025 Protein Ql (U) 30 mg/dl High Negative [facility] RBC Auto (Bld) [#/Vol]Ordere d By: Gus Garza on 01-10-2025 RBC (Bld) [#/Vol] 4.62 10*6/uL 4.2-5.4 [facility] Serum creatinine measurement (mass/volume)Ordered By: Gus Garza on 01-10-2025 Creatinine [Mass/Vol] 0.87 mg/dL 0.70-1.20 [facility] Serum globulin measurementOr dered By: Gus Garza on 01-10-2025 Globulin (S) [Mass/Vol] 3.0 g/dL 2.2-4.2 [facility] Serum glucose measurement (m ass/volume)Ordered By: Gus Garza on 01-10-2025 Glucose [Mass/Vol] 91 mg/dL 70-99 [facility] Serum or plasma alanine armendariz otransferase (ALT) measurementOrdered By: Gus Garza on 01-10-2025 ALT [Catalytic activity/Vol] 11 U/L <35 [facility] Serum or plasma albumin josé miguel urement (mass/volume)Ordered By: Gus Garza on 01-10-2025 Albumin [Mass/Vol] 3.8 g/dL 3.4-4.8 [facility] Serum or plasma albumin/glob ulin mass ratioOrdered By: Gus Garza on 01-10-2025 Albumin/Globulin [Mass ratio] 1.2 {ratio} 0.9-2.4 [facility] Serum or plasma alkaline westley sphatase measurementOrdered By: Gus Garza on 01-10-2025 ALP [Catalytic activity/Vol] 107 U/L High 35-104 [facility] Serum or plasma calcium josé miguel urement (mass/volume)Ordered By: Gus Garza on 01-10-2025 Calcium [Mass/Vol] 9.4 mg/dL 7.6-11.0 [facility] Serum or plasma urea nitroge n measurement (mass/volume)Ordered By: Gus Garza on 01-10-2025 Urea nitrogen [Mass/Vol] 21 mg/dL High 4-19 [facility] Sodium levelOrdered By: Steve Garza on 01-10-2025 Sodium [Moles/Vol] 142 mmol/L 133-145 [facility] Spine Lumbar (Routine)on Spine Lumbar (Routine) [facility] Imaging Services [address] [place], [place] [id number] Spine Lumbar (Routine) MR#: [id number] Acct: [id number] Name: EM,JENNIVERNON CORONADO Rep #: [id number] : 1940 F 84 From: Kaleb Alvarado MD PCP: Dr. Da Castro MD Status: ADM LINDA Study: Spine Lumbar (Routine) Date of Exam: 01/10/25 Exam# [id number] Ordering Dr: Jose David Brown MD PROCEDURE: MRI SPINE LUMBAR (ROUTINE) 01/10/2025 REASON FOR EXAM: COMPRESSION FRACTURE EVALUATION Lumbar pain. TECHNIQUE: MRI lumbar spine without contrast. Multiplanar and multisequence images were obtained without IV contrast administration. COMPARISON: CT lumbar spine 01/10/2025 and 12/31/2024 FINDINGS: Vertebrae: There is acute progression of a uoyw-ae-jtxutwjb compression fracture of L1 with marrow edema, visualized fracture lines at the superior endplate and further vertebral body height loss compared to 12/31/2024. Minimal retropulsion of the posterior superior wall of L1 resulting in minimal spinal canal stenosis. The retropulsion of the posterior superior L1 wall does not contact or compress the distal spinal cord. Alignment: Grade 1 anterolisthesis of L4 on L5 Conus Medullaris: Distal spinal cord demonstrates normal signal characteristics and contour. L1-2: L1-2 mild diffuse disc bulge resulting in minimal spinal canal stenosis without mass effect on the nerve roots. Mild bilateral neural foraminal stenosis without mass effect on the nerve roots L2-3: L2-3 minimal diffuse disc bulge. Minimal spinal canal stenosis and mild bilateral neural foraminal stenosis without mass effect on the nerve roots L3-4: L3-4 diffuse disc bulge and mild bilateral facet degenerative change. Moderate spinal canal stenosis. Disc bulge contacts the nerve roots in the ventral spinal canal without compression of the nerve roots. Disc bulge contacts the bilateral L3 nerve roots without compression of the nerve roots. L4-5: L4-5 diffuse disc bulge, disc uncovering from grade 1 anterolisthesis and advanced bilateral facet degenerative changes results in severe spinal canal stenosis with compression of the nerve roots in the spinal canal. Lqum-qq-zlliutpc bilateral neural foraminal stenosis without mass effect on the nerve roots L5-S1: L5-S1 diffuse disc bulge, asymmetric to the left and mild bilateral facet degenerative change. Minimal spinal canal stenosis without mass effect on the nerve roots. Minimal right neural foraminal stenosis without mass effect on the nerve root. Moderate left neural foraminal stenosis. Disc bulge contacts the left L5 nerve root without compression of the nerve root. Sacrum: Partially visualized upper sacrum appears intact Incidental notation made of bilateral renal cysts. MRI/Spine Lumbar (Routine) IMPRESSION: 1. Acute progression of febs-zw-efoqppva L1 compression fracture with marrow edema. Minimal retropulsion of posterior superior wall of L1 resulting in minimal spinal canal stenosis without mass effect on the spinal cord. 2. Grade 1 anterolisthesis of L4 on L5. 3. Severe L4-5 spinal canal stenosis with compression of the nerve roots within the spinal canal. 4. Multilevel degenerative changes with varying degrees of spinal canal and neural foraminal stenosis, as detailed above. Reading Location: [facility] CC: Dr. Da Castro MD; Dr. Jose David Brown MD [employer] Clipping: Signed Normal [facility] Spine Lumbar without Contras ton 01-10-2025 Spine Lumbar without Contrast [facility] Imaging Services [address] [place] [id number] Spine Lumbar without Contrast MR#: [id number] Acct: [id number] Name: JENNI STRICKLAND Rep #: [id number] : 1940 F 84 From: Kaleb Alvarado MD PCP: Dr. Da Castro MD Status: REG ER Study: Spine Lumbar without Contrast Date of Exam: Exam# [id number] Ordering Dr: Gus Garza DO PROCEDURE: SPINE LUMBAR WITHOUT CONTRAST 01/10/2025 REASON FOR EXAM: L1 COMPRESSION FRACTURE/INCREASED PAIN Increased lumbar pain. TECHNIQUE: Lumbar spine CT without contrast. Coronal and Sagittal reconstruction series were provided. One or more dose reduction techniques were used (e.g., Automated exposure control, adjustment of the mA and/or kV according to patient size, use of iterative reconstruction technique COMPARISON: December 31, 2024 RADIATION DOSE SUMMARY: CTDlvol: 15.65 mGy DLP: 521.23 mGycm FINDINGS: Vertebrae: Acute to subacute compression fracture at the superior endplate of L1 with slight progression of vertebral body height loss compared to 12/31/2024 and more visualized fracture line at the superior endplate of L1. Minimal retropulsion of the posterior superior wall of L1 resulting in minimal osseous spinal canal stenosis. Alignment: Grade 1 anterolisthesis of L4 on L5 Vacuum disc phenomenon consistent with disc degeneration at L1-2, L4-5 and L5-S1. Advanced facet degenerative changes L4-5. Evaluation noncalcified disc pathology is markedly limited on CT without intrathecal contrast and is best evaluated with MRI. While evaluation is limited at L4-5 there does appear to be disc uncovering from anterolisthesis and diffuse disc bulge resulting in at least mild spinal canal and bilateral neural foraminal narrowing. Additional small disc bulges appear present at L2-3, L3-4 and L5-S1. Sacrum: Sacrum appears intact. CT/Spine Lumbar without Contrast IMPRESSION: 1. Mild progression of acute to subacute compression fracture at the superior endplate of L1. 2. Minimal retropulsion of the posterior superior wall of L1 resulting in minimal osseous spinal canal stenosis. 3. Grade 1 anterolisthesis of L4 on L5. 4. Moderate multilevel degenerative change, greatest at L5-S1. Reading Location: [facility] CC: Dr. Da Castro MD; Dr. Gus Garza DO [employer] Clipping: Signed Normal [facility] Squamous epithelial cells de tection in urine sediment by light microscopyOrdered By: Gus Garza on 01-10-2025 Epithelial cells.squamous LM Ql (Urine sed) 0-5 SEEN /hpf 5-10 [facility] Total proteinOrdered By: Mike Garza on 01-10-2025 Protein [Mass/Vol] 6.8 g/dL 5.9-8.4 [facility] Transitional cells detection in urine sediment by light microscopyOrdered By: Gus Garza on 01-10-2025 Transitional cells LM Ql (Urine sed) 0-5 SEEN /hpf 0-5 [facility] Urinalysis, Completeon 01-10 EPI,SQUAMOUS 0-5 SEEN Normal 5-10 [facility] Comment on above: Order Comment: COLLE CTOR TO SPECIFY Performed By: #### L [id number] #### [facility] Laboratory [address] [place], [address] EPI,TRANSITION 0-5 SEEN Normal 0-5 [facility] Comment on above: Order Comment: JOSE CTOR TO SPECIFY Performed By: #### L [id number] #### [facility] Laboratory [address] [place], [address] WBC 0-5 SEEN Normal 0-5 [facility] Comment on above: Order Comment: JOSE CTOR TO SPECIFY Performed By: #### L [id number] #### [facility] Laboratory [address] [place], [address] BACTERIA 0 SEEN Normal None Seen [facility] Comment on above: Order Comment: JOSE CTOR TO SPECIFY Performed By: #### L [id number] #### [facility] Laboratory [address] [place], [address] Mucus Ql (Urine sed) 0 SEEN Normal [facility] Comment on above: Order Comment: JOSE CTOR TO SPECIFY Performed By: #### L [id number] #### [facility] Laboratory [address] [place], [address] RBC 0 SEEN Normal 0-5 [facility] Comment on above: Order Comment: JOSE CTOR TO SPECIFY Performed By: #### L [id number] #### [facility] Laboratory [address] [place], [address] Urine clarityOrdered By: Mike Garza on 01-10-2025 Clarity (U) Sl. Cloudy Clear [facility] Urine color determinationOrd ered By: Gus Garza on 01-10-2025 Color (U) Yellow Yellow [facility] Urine glucose detectionOrder ed By: Gus Garza on 01-10-2025 Glucose Ql (U) Normal mg/dl Normal [facility] Urine leukocyte esterase det ection by dipstickOrdered By: Gus Garza on 01-10-2025 Leukocyte esterase Test strip Ql (U) 100 /ul High Negative [facility] Urine pHOrdered By: Gus duff on 01-10-2025 pH (U) 6.0 [pH] 5.0 - 8.0 [facility] Urine sediment bacteria coun t by microscopy (number/high power field)Ordered By: Gus Garza on 01-10-2025 Bacteria LM.HPF (Urine sed) [#/Area] 0 /[HPF] None Seen [facility] Urine specific gravity measu rementOrdered By: Gus Garza on 01-10-2025 Specific gravity (U) [Rel density] 1.015 1.002-1.030 [facility] Urine urobilinogen measureme ntOrdered By: Gus Garza on 01-10-2025 Urobilinogen Ql (U) Normal mg/dl Normal [facility] White blood cell (WBC) count Ordered By: Gus Garza on 01-10-2025 WBC (Bld) [#/Vol] 5.5 10*3/uL 4.4-11.0 [facility] White blood cell countOrdere d By: Gus Garza on 01-10-2025 White blood cell count 0-5 SEEN /hpf 0-5 [facility] CNOVon 12-31-2024 [facility] V ([id number]) 1940 F Date Time Provider Department 12/31/24 3:15 PM [facility] During your visit today, we recorded the following information about you: Temperature Pulse Respiration Blood pressure 97.3 degrees 70/minute 18/minute 179/99 Sundeep Castano APRN.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 12/31/2024 3:37 PM Signed Patient came in with complaints of horrible mid back pain. Patient says she was pouring gas into the lumbar and felt something happen to her back. Patient says it is extremely uncomfortable but denies any difficulty using the restroom. Upon examination patient could not even get up out of the chair by herself. Patient is crying in so much pain. Patient says it feels like something is very wrong back there. Every step patient takes patient seems in extreme pain. Due to the mechanism of injury and pain level not matching patient's pain for the emergency room. Patient wants to take herself. Patient agreeable to care plan. Allergies As of Date: 12/31/2024 Noted Allergy Reaction PENICILLINS 06/06/2005 10 - Anaphylaxis ROBITUSSIN A-C (CODEINE-GUAIFENES*1 10 - Anaphylaxis WASPS 03/21/2014 7 - Swelling Comments: swelling at sting site ELASTIC 06/07/2005 2 - Rash GLOVES, LATEX 06/14/2006 2 - Rash Comments: blisters HCTZ (THIAZIDES) 10/09/2015 5 - Intolerance Comments: Pins and needles sensation SULFA (SULFONAMIDE ANTIBIOTICS) 06/06/2005 5 - Intolerance ZOCOR (SIMVASTATIN) 06/19/2010 17 - Myalgia Comments: muscle ache Date Reviewed: 12/31/2024 Reviewed by: Alena Rangel MA - Fully Assessed Reason for Visit: Low Back Pain [126] Cmt: Midline low back pain x1 day, was lifting gas can to mower, felt sharp pain Primary Visit Diagnosis:Acute midline low back pain without sciatica [M54.50] Prescriptions as of 12/31/2024 - furosemide (LASIX) 20 mg tablet Take 1 tablet by mouth once daily. - lisinopril (ZESTRIL) 20 mg tablet Take 1 tablet by mouth every afternoon. - amLODIPine (NORVASC) 2.5 mg tablet Take 1 tablet by mouth once daily. - naproxen (NAPROSYN) 500 mg tablet Take 1 tablet by mouth two times a day as needed (for pain/inflammation). Take with food. - omeprazole (PRILOSEC) 20 mg capsule Take 1 capsule by mouth daily before breakfast. 1/2 hr before meal. - estradiol (ESTRACE) 0.01 % (0.1 mg/gram) vaginal cream Use 1 g vaginally one time a week. - umeclidinium (INCRUSE ELLIPTA) 62.5 mcg/actuation inhaler Inhale 1 Puff as instructed once daily. - polyethylene glycol 3350 (MIRALAX ORAL) Take 17 g by mouth as needed (constipation). - Lactobacillus acidophilus (FLORAJEN ACIDOPHILUS) 20 billion cell cap Take 460 mg by mouth once daily. - famotidine (PEPCID) 20 mg tablet Take 1 tablet by mouth at bedtime as needed. - cyanocobalamin (VITAMIN B-12) 1,000 mcg tab Take 1 tablet by mouth once daily. - fluticasone (FLONASE) 50 mcg/actuation nasal spray Use 2 Sprays in each nostril once daily. - calcium carbonate ([id number])(TUMS 500 MG CHEWABLE TAB) Take 1,000 mg by mouth two times a day as needed (GERD). - POTASSIUM GLUCONATE 595 MG (99 MG) TAB Take 595 mg by mouth once daily. - MAGNESIUM 250 MG TAB Take 250 mg by mouth once daily. - calcium carbonate/vitamin d3(CALCIUM 600 WITH VITAMIN D3 600 MG (1,500)-200 UNIT TAB) Take 1 tablet by mouth once daily. Problem List As Of Date 12/31/2024 Noted Resolved Esophagitis, unspecified [K20.90] 12/09/2018 Acute gastritis [535.0] 12/09/2018 Diverticulitis [K57.92] Disorder of bone and cartilage, unspecified [M8* 12/09/2018 DIAPHRAGMATIC HERNIA [K44.9] FAMILY HX GI MALIGNANCY [Z80.0] 08/22/2008 Urticaria [L50.9] 02/01/2010 Dyslipidemia (high LDL; low HDL) [E78.5] 02/01/2010 Closed fracture of metatarsal bone(s) [S92.309A]03/12/2011 12/09/2018 Umbilical hernia without mention of obstruction*06/29/20 12 Cramp of both lower extremities [R25.2] 04/03/2015 Leg cramps [R25.2] 04/03/2015 12/09/2018 Tingling in extremities [R20.2] 04/03/2015 12/09/2018 COPD (chronic obstructive pulmonary disease) (H*04/03/2015 Essential hypertension [I10] 11/13/2015 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 Da Castro MD Status:REG ER Location: ED HPI History of Present Illness Chief Complaint: Back PFSH PFSH Medical History Psoriasis Urticaria Acute gastritis Esophagitis Diverticulitis of colon Chronic cough Hoarseness Overweight HUMPHRIES (dyspnea on exertion) Stage 1 mild COPD by GOLD classification Home Medications ???Medication ???Instructions ???Recorded ???Last Taken ???Type magnesium 250 mg tablet 125 mg PO QDAY supplement 10/09/17 Unknown History potassium gluconate 595 mg (99 mg) 595 mg PO QDAY supplement Unknown History tablet aclidinium bromide 400 400 mcg IH BID breathing 11/28/20 Unknown History mcg/actuation breath activated powder inhaler amlodipine 10 mg tablet 10 mg PO QDAY ##0 11/29/20 Unknown Rx furosemide 20 mg tablet 20 mg PO DAILY PRN PRN leg 1 Unknown Rx swelling ##0 lisinopril 10 mg tablet 10 mg PO DAILY ##0 11/29/20 Unknow n Rx dicyclomine 10 mg capsule 10 mg PO BID #60 caps 12/25/23 Unk nown Rx esomeprazole magnesium 40 mg 40 mg PO QAM #90 caps 07/06/24 Unk nown Rx capsule,delayed release Allergy/AdvReac Type Severity Reaction Status Date / Time Latex, Natural Rubber Allergy Mild Verified 12/31/24 15:53 simvastatin (From Zocor) Allergy Mild Verified 12/31/24 15:53 guaifenesin (From Robitussin) Allergy Unknown Verified 12/31/24 15:53 Penicillins Allergy Anaphylaxis Verified 12/31/24 15:53 Sulfa (Sulfonamide Allergy Unknown Verified 12/31/24 15:53 Antibiotics) Family History Mother Colon cancer Father Colon cancer Sister Breast cancer Diabetes CVA (cerebral vascular accident) Cervical cancer Brother Heart disease Daughter COPD (chronic obstructive pulmonary disease) Son Diabetes Surgical History History of cataract extraction History of amputation of right great toe History of appendectomy history of left arm surgery history of hand reconstruction Social History Smoking Status: Never smoker EXAM Physical Exam Const Vital Signs: 12/31/24 15:45 12/31/24 17:45 12/31/24 19:00 Temperature 97.5 F L Temperature Source Temporal Pulse Rate 81 66 70 Respiratory Rate 16 Blood Pressure 197/125 H 153/87 H 158/79 H Blood Pressure Mean 149 109 105 Pulse Ox 98 97 96 Oxygen Delivery Method Room Air Room Air Room Air MDM MDM MDM Narrative Medical decision making narrative: HISTORY OF PRESENT ILLNESS: Chief complaint: Back pain 84-year-old female history of constipation, hiatal hernia, GERD, UTI, COPD presents with back pain. States her back pain start after work in the garden yesterday. She further states she was doing yard work with her bent over. did not feel any immediate pain but noticed worsening pain overnight. Located lower back Patient denies any saddle anesthesia, urinary retention, bowel or bladder incontinence, lower extremity weakness, fever or IV drug use, no recent spinal manipulation or surgery, no recent urinary catheterization. REVIEW OF SYSTEMS: Pertinent positives: Low back pain Pertinent negatives: Bowel or bladder incontinence PHYSICAL EXAM: Nursing triage notes reviewed, Vital signs reviewed Constitutional: please see mdm HENT: MMM Eyes: Pupils equal round and reactive to light, Extraocular muscles intact Neck: No stridor, no JVD, full neck ROM Lungs: Clear to auscultation, No wheezing or rales. No increased work of breathing, no conversational dyspnea, no accessory muscle use, no nasal flaring. No respiratory distress noted Heart: Regular rate and rhythm, No murmurs, No rubs and No gallops, 2+ distal pulses (radial, femoral, posterior tibial) in all extremities Abdomen: Soft, there is no tenderness, rigidity, rebound or guarding, no obvious peritoneal signs, no palpable pulsatile abdominal masses, no auscultated abdominal bruit : No CVAT Extremities: No edema Neuro: No new focal neurological deficits, cranial nerves II through XII intact, 5/5 strength in all present extremities. Intact sensation to light touch in all present extremities, 2+ reflexes bilateral patella tendons. Skin: No rash or lesions noted MEDICAL DECISION MAKING: Chief Complaint: please see HPI External records reviewed: Factors affecting care: none Social determinants of health: none History obtained from others: none Consults: none (more content not included)... Normal [facility] Spine Lumbar without Contras ton 12-31-2024 Spine Lumbar without Contrast [facility] Imaging Services [address] [place], [place] [id number] Spine Lumbar without Contrast MR#: [id number] Acct: [id number] Name: JENNI STRICKLAND Rep #: [id number] : 1940 F 84 From: Greg bruno MD PCP: Dr. Da Castro MD Status: REG ER Study: Spine Lumbar without Contrast Date of Exam: Exam# [id number] Ordering Dr: Johnson Osborne DO PROCEDURE: SPINE LUMBAR WITHOUT CONTRAST 12/31/2024 REASON FOR EXAM: BACK PAIN TECHNIQUE: Lumbar spine CT without contrast. Coronal and Sagittal reconstruction series were provided. One or more dose reduction techniques were used (e.g., Automated exposure control, adjustment of the mA and/or kV according to patient size, use of iterative reconstruction technique COMPARISON: None. FINDINGS: Vertebrae: Mild acute-subacute L1 compression deformity. Less than 10% loss of disc height. Remainder of the vertebral body heights are within normal limits. Disc spaces are maintained. Diffuse osteopenia. Multilevel degenerative changes, without high-grade canal stenosis or neural foraminal narrowing. Alignment: Lumbar lordosis is maintained. Grade 1 anterolisthesis of L4 on L5. Multilevel degenerative changes without high-grade canal stenosis or neural foraminal narrowing. Sacrum: Mild degenerative changes of the SI joints CT/Spine Lumbar without Contrast IMPRESSION: Mild acute-subacute L1 compression deformity. Degenerative changes without high-grade canal stenosis or neural foraminal narrowing. Reading Location: [facility] CC: Dr. Da Castro MD; Dr. Johnson Osborne DO Tearer Press Clipping: Signed Normal [facility] CNCOon 12-30-2024 CNCO Letter Text Normal [facility] CNOVon 12-10-2024 CNOV Office Visit (INTMWS) JENNI STRICKLAND V ([id number]) 1940 F Date Time Provider Department 12/10/24 1:00 PM MONA MANCILLA During your visit today, we recorded the following information about you: Pulse Respiration Blood pressure 77/minute 16/minute 135/74 Mona Mancilla APRN.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 12/10/2024 1:01 PM Signed CC: Patient presents with: Recheck: Follow up cellulitis and BP HPI Jenni Strickland is a 84 year old female who presents today for cellulitis and BP follow up. Recording using [employer] software for draft documentation of the visit was discussed with the patient/authorized sales representative livestock; all questions welcomed and answered. Patient/authorized sales representative livestock agreed to proceed Cellulitis: - Significant improvement in leg redness; no warmth, drainage, fever, or chills. - Pain has resolved. - Completed 8.5 days of doxycycline; 1.5 days remaining. - No new drainage on sheets. Hypertension: - Took antihypertensive medication this morning. - Home blood pressure readings this week ranged from 120/64 to 150/unknown. - Denies headaches, dizziness, edema, palpitations, angina, or dyspnea. - Reports feeling well with good energy levels. - Experiencing emotional stress due to the recent loss of two close friends and unsure if this has been affecting her BP readings. Was not checking her BP prior to these losses. 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 furosemide (LASIX) 20 mg tablet Take 1 tablet by mouth once daily. lisinopril (ZESTRIL) 20 mg tablet Take 1 tablet by mouth every afternoon. amLODIPine (NORVASC) 2.5 mg tablet Take 1 tablet by mouth once daily. naproxen (NAPROSYN) 500 mg tablet Take 1 tablet by mouth two times a day as needed (for pain/inflammation). Take with food. omeprazole (PRILOSEC) 20 mg capsule Take 1 capsule by mouth daily before breakfast. 1/2 hr before meal. estradiol (ESTRACE) 0.01 % (0.1 mg/gram) vaginal cream Use 1 g vaginally one time a week. umeclidinium (INCRUSE ELLIPTA) 62.5 mcg/actuation inhaler Inhale 1 Puff as instructed once daily. polyethylene glycol 3350 (MIRALAX ORAL) Take 17 g by mouth as needed (constipation). Lactobacillus acidophilus (FLORAJEN ACIDOPHILUS) 20 billion cell cap Take 460 mg by mouth once daily. (Patient taking differently: Take 460 mg by mouth as needed.) famotidine (PEPCID) 20 mg tablet Take 1 tablet by mouth at bedtime as needed. cyanocobalamin (VITAMIN B-12) 1,000 mcg tab Take 1 tablet by mouth once daily. fluticasone (FLONASE) 50 mcg/actuation nasal spray Use 2 Sprays in each nostril once daily. calcium carbonate ([id number])(TUMS 500 MG CHEWABLE TAB) Take 1,000 mg by mouth two times a day as needed (GERD). POTASSIUM GLUCONATE 595 MG (99 MG) TAB Take 595 mg by mouth once daily. MAGNESIUM 250 MG TAB Take 250 mg by mouth once daily. calcium carbonate/vitamin d3(CALCIUM 600 WITH VITAMIN D3 600 MG (1,500)-200 UNIT TAB) Take 1 tablet by mouth once daily. FAMILY HISTORY Problem Relation Age of Onset Colon Cancer Mother Colon Cancer Father other (colon polyps) Father Stroke Maternal Grandmother Colon Cancer Paternal Grandfather Breast Cancer Sister Cervical Cancer Sister COPD Daughter Heart Brother Coronary Artery Disease Sister fatal DC Coronary Artery Disease Brother fatal DC Diabetes Sis (more content not included)... Normal [facility] CNOVon 12-06-2024 CNOV Office Visit (INTMWS) JENNI STRICKLAND V ([id number]) 1940 F Date Time Provider Department 12/06/24 9:20 AM MONA MANCILLA IN[place] During your visit today, we recorded the following information about you: Pulse Respiration Blood pressure 84/minute 16/minute 156/82 Mona Mancilla APRN.CNP 12/06/2024 8:04 AM Signed - Continue taking Doxycycline twice a day for the remaining 7 days as prescribed. - Monitor the redness around the wound. If the redness completely disappears before your next appointment, you may cancel the follow-up visit. - Next follow-up appointment is scheduled for Friday to assess the wound and determine if additional antibiotics are needed. Take your blood pressure medicine prior to seeing me on Friday Mona Mancilla APRN.CNP 12/06/2024 8:10 AM Signed CC: Patient presents with: Recheck: Cellulitis follow up HPI Jenni Strickland is a 84 year old female who presents today for follow up on cellulitis but BP is also elevated due to her not taking her BP meds this morning. Recording using [employer] software for draft documentation of the visit was discussed with the patient/authorized sales representative livestock; all questions welcomed and answered. Patient/authorized sales representative livestock agreed to proceed Leg Wound: - Noted improvement in pain, redness, and swelling. - Mild tenderness and residual redness around the wound. - Minimal drainage observed on sheets prior to the visit. - Denies fever, chills, body aches, or dyspnea. - Taking doxycycline BID for 3 days; 7 days remaining. HTN: Ms. Strickland denies headache, chest pain, palpitations, dyspnea, and peripheral edema. Patient denies any side effects of her medication(s) and is compliant with their regimen except has not taken yet this morning. 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 furosemide (LASIX) 20 mg tablet Take 1 tablet by mouth once daily. lisinopril (ZESTRIL) 20 mg tablet Take 1 tablet by mouth every afternoon. amLODIPine (NORVASC) 2.5 mg tablet Take 1 tablet by mouth once daily. naproxen (NAPROSYN) 500 mg tablet Take 1 tablet by mouth two times a day as needed (for pain/inflammation). Take with food. omeprazole (PRILOSEC) 20 mg capsule Take 1 capsule by mouth daily before breakfast. 1/2 hr before meal. estradiol (ESTRACE) 0.01 % (0.1 mg/gram) vaginal cream Use 1 g vaginally one time a week. umeclidinium (INCRUSE ELLIPTA) 62.5 mcg/actuation inhaler Inhale 1 Puff as instructed once daily. polyethylene glycol 3350 (MIRALAX ORAL) Take 17 g by mouth as needed (constipation). Lactobacillus acidophilus (FLORAJEN ACIDOPHILUS) 20 billion cell cap Take 460 mg by mouth once daily. (Patient taking differently: Take 460 mg by mouth as needed.) famotidine (PEPCID) 20 mg tablet Take 1 tablet by mouth at bedtime as needed. cyanocobalamin (VITAMIN B-12) 1,000 mcg tab Take 1 tablet by mouth once daily. fluticasone (FLONASE) 50 mcg/actuation nasal spray Use 2 Sprays in each nostril once daily. calcium carbonate ([id number])(TUMS 500 MG CHEWABLE TAB) Take 1,000 mg by mouth two times a day as needed (GERD). POTASSIUM GLUCONATE 595 MG (99 MG) TAB Take 595 mg by mouth once daily. MAGNESIUM 250 MG TAB Take 250 mg by mouth once da (more content not included)... Normal [facility] CNOVon 12-02-2024 CNOV Office Visit (INTMWS) JENNI STRICKLAND V ([id number]) 1940 F Date Time Provider Department 12/02/24 9:20 AM MONA MANCILLA During your visit today, we recorded the following information about you: Pulse Respiration Blood pressure 76/minute 16/minute 152/74 Mona Mancilla APRN.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 12/02/2024 9:55 AM Signed CC: Patient presents with: Wound Check: Sore on L lower leg x 2 weeks HPI Jenni Strickland is a 84 year old female who presents today for a sore on her leg. Is in a alcazar as she [place] [facility] [place] concerned with the sore and wanted her to go to the ER for the infection, but patient is going to see her grandson at noon for the first time in 2 years and needs to get home. The patient consented to the use of BodyMedia software for draft documentation of the visit consistent with [facility]?s Notice of Privacy Practices. Jenni is a 84-year-old female presenting with erythema and tenderness of the left leg. Jenni reports erythema and tenderness of the left leg following a minor injury sustained 2 weeks ago when she bumped her leg on a car door. Initially, the injury was painful but did not result in any skin breakage or bleeding. Approximately 10 days ago, she began experiencing pain in the affected area, which has progressively worsened. Yesterday, she noticed swelling in the leg, which resolved by this morning. The erythema is described as real red and the area is very touchy. She denies any drainage from the site. She has been applying warm compresses to the area for comfort. She has not used topical antibiotics due to a history of adverse reactions to triple antibiotic ointment and bacitracin in the past. She denies fever, chills, myalgias, dyspnea, drainage, or chest pain. She has a history of multiple antibiotic allergies, including severe reactions to penicillins, cephalexins, and Bactrim. She has not taken antibiotics recently, with the last course being nearly a year ago for gastrointestinal issues. REVIEW OF SYSTEMS See HPI PAST MEDICAL HISTORY Diagnosis Date Atopic dermatitis 06/09/2018 COPD (chronic obstructive pulmonary disease) (HCC) 04/03/2015 Diaphragmatic hernia without mention of obstruction or gangrene Disorder of bone and cartilage, unspecified Diverticulitis of colon (without mention of hemorrhage)(562.11) Dyspnea on exertion 10/21/2017 chronic Esophagitis, unspecified Essential hypertension 11/13/2015 Milia 06/09/2018 Pigmented purpura 06/09/2018 Psoriasis Urticaria PAST SURGICAL HISTORY Procedure Laterality Date AFTER CATARACT LASER SURGERY bilateral CHEST TUBE - INSERT 1985 trauma from bull, rib fractures, on vent. 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 furosemide (LASIX) 20 mg tablet Take 1 tablet by mouth once daily. lisinopril (ZESTRIL) 20 mg tablet Take 1 tablet by mouth every afternoon. amLODIPine (NORVASC) 2.5 mg tablet Take 1 tablet by mouth once daily. naproxen (NAPROSYN) 500 mg tablet Take 1 tablet by mouth two times a day as needed (for pain/inflammation). Take with food. omeprazole (PRILOSEC) 20 mg capsule Take 1 capsule by mouth daily before breakfast. 1/2 hr before meal. estradiol (ESTRACE) 0.01 % (0.1 mg/gram) vaginal cream Use 1 g vaginally one time a week. umeclidinium (INCRUSE ELLIPTA) 62.5 mcg/actuation inhaler Inhale 1 Puff as instructed once daily. polyethylene glycol 3350 (MIRALAX ORAL) Take 17 g by mouth as needed (constipation). Lactobacillus acidophilus (FLORAJEN ACIDOPHILUS) 20 billion cell cap Take 460 mg by mouth once daily. (Patient taking differently: Take 460 mg by mouth as needed.) famotidine (PEPCID) 20 mg tablet Take 1 tablet by mouth at bedtime as needed. cyanocobalamin (VITAMIN B-12) 1,000 mcg tab Take 1 tablet by mouth once daily. fluticasone (FLONASE) 50 mcg/actuation nasal spray Use 2 Sprays in each nostril once daily. calcium carbonate ([id number])(TUMS 500 MG CHEWABLE TAB) Take 1,000 mg by mouth two times a day as ne (more content not included)... Normal [facility] CNOVon 07-12-2024 CNOV Office Visit (INTMWS) JENNI STRICKLAND V ([id number]) 1940 F Date Time Provider Department 07/12/24 9:20 AM MONA MANCILLA INTMWS During your visit today, we recorded the following information about you: Pulse Respiration Blood pressure Weight 80/minute 16/minute 131/76 65.8 kg Mona Mancilla APRN.CNP 07/12/2024 10:19 AM Signed Jenni Flores Em is a 84 year old female here for a Medicare wellness visit. Medicare Health Risk Assessment General Health Very Good Exercise: Minutes/Day Not at this time Exercise: Days/Week Not at this time Alcohol: Daily Use Does not drink alcohol Alcohol: Drinks/Day Does not drink alcohol Alcohol: 6 or more drinks Does not drink alcohol Feel off balance denies Concerns: Teeth/Dentures Difficulty with teeth, unable to afford implants. Declines on dentures Concerns: Sexual function denies Troubled by feelings denies Frequency: Eating healthy diet All of the time ADLs requiring help Denies Safety precautions in home/vehicle Always wears seatbelt, has grab bars in the bathroom, all steps have handrails. No clutter/rugs on floor Smoke, vape, chews tobacco Denies Difficulty hearing Wears hearing aides. Difficulty seeing denies Current Providers Specialists: I have reviewed specialist-related care of the patient in the medical record. Optometry: Dr. Magaña - macular degeneration. GI: Dr. Reyes Dermatology: Dr. Faulkner Massotherapist Medical/Family history review Reviewed and updated problem list, medical/surgical/fam louise/social history, medications, and allergies. Opioid use review Opioid Medications (last 90 days) No data to display Anxiety/Depression screening PHQ-2 Score: 0 (Lower risk for depression) NEAL-2 Sore: 0 Recommendation: no further intervention at this time Cognitive screening Mini Cog Score: 5 Cognitive screening reviewed and No further action needed (score 3-5). Functional Observation Was the patient's Timed Up AND Go test unsteady or >= 12 seconds? No Advance Care Planning Surrogate decision maker and/or advance care plan documented POA of healthcare is . No paperwork on file. Measurements BP 131/76 Pulse 80 Resp 16 Wt 65.8 kg (145 lb) BMI 26.52 kg/m? Vision Screening: Follows with optometry/ophthalmol ogy Assessment/Plan Medicare annual wellness visit, subsequent () - Counseled on healthy diet and regular exercise - Fall avoidance information provided - Personalized prevention plan provided ASSESSMENT/PLAN: 1. Medicare annual wellness visit, subsequent - ICD9: V70.0, ICD10: Z00.00 (primary diagnosis) - Counseled on healthy diet and regular exercise - Patient counseled on and acknowledged vaccine benefits/risks/side effects; VIS provided: Influenza - Follow up for annual exam in one year 2. Need for influenza vaccination - ICD9: V04.81, ICD10: Z23 - INFLUENZA VACCINE, PRSV FREE, AGE 65+ YR, HIGH DOSE, TRIVALENT (FLUZONE HIGH-DOSE) Prescription instructions reviewed with patient as applicable. Potential red flag symptoms discussed with the patient. Reviewed appropriate action plan to take if red flag symptoms occur. Patient agreeable to treatment plan. MICHELE Weaver Joy, APRN.CNP 07/12/2024 9:41 AM Signed Screening schedule The following prevention plan is recommended: Influenza Vaccine(1) due on 04/25/2024 WHAT YOU CAN DO TO PREVENT FALLS Many falls can be prevented. By making some changes, you can lower your chances of falling. Four things YOU can do to prevent falls for you* and your caregiver 1. Begin a regular exercise program Exercise is one of the most important ways to lower your chances of falling. It makes you stronger and helps you feel better. Exercises that improve balance and coordination (like Charles Chi) are the most helpful. Lack of exercise leads to weakness and increases your chances of falling. Ask your doctor or health care provider about the best type of exercise program for you. 2. Have your health care provider review your medicines Have your doctor or pharmacist review all the medicines you take, even uhyn-hfm-etbsofa medicines. As you get older, the way medicines work in your body can change. Some medicines, or combinations of medicines, can make you sleepy or dizzy and can cause you to fall. 3. Have your vision checked Have your eyes checked by an eye doctor at least once a year. You may be wearing the wrong glasses or have a condition like glaucoma or cataracts that limits your vision. Poor vision can increase your chances of falling. 4. Make your home safer About half of all falls happen at home. To make your home safer: Remove things you can trip over (like papers, books, clothes, and shoes) from stairs and places where you walk. Remove small throw rugs or use double-sided tape to keep the rugs from slipping. Keep items you use often in cab (more content not included)... Normal [facility] Gastroenterology Visit Repor ton 06-28-2024 Gastroenterology Visit Report [facility] Gastroenterology [address] [place] [address] OFFICE VISIT Date of Service: 06/28/24 MR#: [id number] Acct: [id number] Name: JENNI STRICKLAND Rep #: [id number] : 1940 Provider: Gatito Reyes DO Age/Sex: 84/F Location: [facility] Status: Signed Intake Vital Signs 11/18/23 18:33 04/16/24 18:35 Height 5 ft 2 in 5 ft 2 in Intake Visit Reasons: 6 M FU Chief Complaint: f/u Allergies Latex, Natural Rubber Allergy (Mild, Verified 04/16/24 18:35) simvastatin (From Zocor) Allergy (Mild, Verified 04/16/24 18:35) guaifenesin (From Robitussin) Allergy (Verified 04/16/24 18:35) Unknown Penicillins Allergy (Verified 04/16/24 18:35) Anaphylaxis Sulfa (Sulfonamide Antibiotics) Allergy (Verified 04/16/24 18:35) Unknown Medications ???Medication ???Instructions ???Recorded ???Confirmed ???Type magnesium 250 mg tablet 125 mg PO QDAY supplement 10/09/17 06/28/24 History potassium gluconate 595 mg (99 mg) 595 mg PO QDAY supplement 10/09/17 06/28/24 History tablet aclidinium bromide 400 400 mcg IH BID breathing 11/28/20 06/28/24 History mcg/actuation breath activated powder inhaler amlodipine 10 mg tablet 10 mg PO QDAY ##0 11/29/20 06/28/24 Rx furosemide 20 mg tablet 20 mg PO DAILY PRN PRN leg 11/29/20 06/28/24 Rx swelling ##0 lisinopril 10 mg tablet 10 mg PO DAILY ##0 11/29/20 06/28/24 Rx dicyclomine 10 mg capsule 10 mg PO BID #60 caps 12/25/23 06/28/24 Rx esomeprazole magnesium 40 mg 40 mg PO QAM #90 caps 01/09/24 06/28/24 Rx capsule,delayed release Have you fallen in the past year?: No PFSH Medical History (Updated 04/24/24 @ 00:02 by Background Daemon) Psoriasis Urticaria Acute gastritis Esophagitis Diverticulitis of colon Chronic cough Hoarseness Overweight HUMPHRIES (dyspnea on exertion) Stage 1 mild COPD by GOLD classification Surgical History History of cataract extraction History of amputation of right great toe History of appendectomy history of left arm surgery history of hand reconstruction Family History Mother Colon cancer Father Colon cancer Sister Breast cancer Diabetes CVA (cerebral vascular accident) Cervical cancer Brother Heart disease Daughter COPD (chronic obstructive pulmonary disease) Son Diabetes Social History Smoking Status: Never smoker HPI HPI Chief Complaint: f/u Details: JENNI STRICKLAND, is a 84 F who presents to the office today for follow up. GET 8.. normal 26.95 minutes abd/pelvis CT 324 1. Small bowel diverticula with inflammation in the left hemipelvis which may represent small bowel diverticulitis. There is no abscess or perforation identified. 2. Cortical and peripelvic cysts within the kidneys. 3. Large hiatal hernia. OV 5.2.24 Pt reports that since her ER visit in October she has not been feeling completely back to normal and has been experiencing some continued abdominal pain. Pt reports that she tries to be mindful of her diet and avoid foods that she knows will upset her stomach, such as greasy or spicy foods. Pt reports that she is currently having formed bms daily. [facility] 8..24 fall - struck back of head OV 11.4.24 Pt reports increased stress in her life which has caused an increased in some IBS symptoms. Pt reports that she can go 4-5 days without a bm and then have days where all she has is diarrhea. ROS Const Constitutional: Positive for fatigue; No fever(s) or weight change ENT ENT: No difficulty swallowing Gastro GI: No abdominal pain, belching, bloating, change in bowel habits, change in stool character, coffee ground emesis, constipation, cramping, diarrhea, heartburn, difficulty swallowing, feeling full early, excessive flatus, incontinent of stools, Vomiting blood/hematemesis, Blood in stool, loose stools, Black,tarry stools, nausea/dyspepsia, pain with swallowing, vomiting or other Musc Musculoskeletal: Positive for muscle cramps, numbness, tingling and Arthritis; No joint pain Skin Skin: Positive for dry skin and itchy eyes; No yellowing of the eye Neuro Neurology: Positive for numbness and tingling Psych Psychiatric: Positive for anxiety and Positive for depression Endo Endocrine: Positive for fatigue; No weight change Aller/Imm Allergy/Immunologic: Positive for itchy eyes Sumit/Lymp Hematologic/Lymphati c: No easy bleeding or easy bruising Exam Const General: cooperative, healthy appearing and comfortable Orientation: alert, awake and oriented x3 Assessment and Plan Assessment and Plan (1) Constipation: Status: Chronic Plan: Continue miralax prn f/u prn (2) Hiatal hernia with GERD without esophagi (more content not included)... Normal [facility] No Panel Informationon 04-09 IMPRESSION: No acute osseous findings right wrist, right hand. Study constraints as above. Tearer Press Clipping: DEZ Transcribe Date/Time: Apr 09 2024 6:24P Dictated by : KARY JESSICA MD This examination was interpreted and the report reviewed and electronically signed by: KARY JESSICA MD on Apr 09 2024 6:43PM [facility] DIVISION OF RADIOLOGY Radiology Study observation (narrative) [facility] No Panel InformationOrdered By: Ccf Provider on 04-09-2024 [facility] XR Hand - right PA and Later al and Obliqueon 04-09-2024 * * *Final Report* * * DATE OF EXAM: Apr 09 2024 5:10PM WOX [id number] - XR HAND 3V PA/LAT/OBL RT / PROCEDURE REASON: multiple diagnoses * * * * Physician Interpretation * * * * EXAMINATION: XR WRIST 3V PA/LAT/OBL RT, XR HAND 3V PA/LAT/OBL RT HISTORY: Acute right hand and right wrist pain after fall. Pt unable to fully flatten hand or straighten fingers. Limited ROM due to pain. Right wrist pain Fall on same level from slipping, tripping or stumbling, initial encounter . TECHNIQUE: XR WRIST 3V PA/LAT/OBL RT, XR HAND 3V PA/LAT/OBL RT Laterality: RIGHT Number of different views (projections): 3 M: XB_1 COMPARISON: None RESULT: Right hand and right wrist: 3 images of each. No identified acute osseous abnormality. Old healed fracture base of the third proximal phalanx. Second MCP arthroplasty. Withheld information regarding location of the posttraumatic pain. DIVISION OF RADIOLOGY Provider, [facility] [place] - 04/09/2024 * * *Final Report* * * DATE OF EXAM: Apr 09 2024 5:10PM WOX [id number] - XR HAND 3V PA/LAT/OBL RT / PROCEDURE REASON: multiple diagnoses * * * * Physician Interpretation * * * * EXAMINATION: XR WRIST 3V PA/LAT/OBL RT, XR HAND 3V PA/LAT/OBL RT HISTORY: Acute right hand and right wrist pain after fall. Pt unable to fully flatten hand or straighten fingers. Limited ROM due to pain. Right wrist pain Fall on same level from slipping, tripping or stumbling, initial encounter . TECHNIQUE: XR WRIST 3V PA/LAT/OBL RT, XR HAND 3V PA/LAT/OBL RT Laterality: RIGHT Number of different views (projections): 3 M: XB_1 COMPARISON: None RESULT: Right hand and right wrist: 3 images of each. No identified acute osseous abnormality. Old healed fracture base of the third proximal phalanx. Second MCP arthroplasty. Withheld information regarding location of the posttraumatic pain. IMPRESSION IMPRESSION: No acute osseous findings right wrist, right hand. Study constraints as above. Tearer Press Clipping: PSCB Transcribe Date/Time: Apr 09 2024 6:24P Dictated by : KARY JESSICA MD This examination was interpreted and the report reviewed and electronically signed by: KARY JESSICA MD on Apr 09 2024 6:43PM [facility] XR Wrist - right PA and Late ral and Obliqueon 04-09-2024 * * *Final Report* * * DATE OF EXAM: Apr 09 2024 5:10PM WOX 5271 - XR WRIST 3V PA/LAT/OBL RT / PROCEDURE REASON: multiple diagnoses * * * * Physician Interpretation * * * * EXAMINATION: XR WRIST 3V PA/LAT/OBL RT, XR HAND 3V PA/LAT/OBL RT HISTORY: Acute right hand and right wrist pain after fall. Pt unable to fully flatten hand or straighten fingers. Limited ROM due to pain. Right wrist pain Fall on same level from slipping, tripping or stumbling, initial encounter . TECHNIQUE: XR WRIST 3V PA/LAT/OBL RT, XR HAND 3V PA/LAT/OBL RT Laterality: RIGHT Number of different views (projections): 3 M: XB_1 COMPARISON: None RESULT: Right hand and right wrist: 3 images of each. No identified acute osseous abnormality. Old healed fracture base of the third proximal phalanx. Second MCP arthroplasty. Withheld information regarding location of the posttraumatic pain. DIVISION OF RADIOLOGY Provider, [facility] [place] - 04/09/2024 * * *Final Report* * * DATE OF EXAM: Apr 09 2024 5:10PM WOX 5271 - XR WRIST 3V PA/LAT/OBL RT / PROCEDURE REASON: multiple diagnoses * * * * Physician Interpretation * * * * EXAMINATION: XR WRIST 3V PA/LAT/OBL RT, XR HAND 3V PA/LAT/OBL RT HISTORY: Acute right hand and right wrist pain after fall. Pt unable to fully flatten hand or straighten fingers. Limited ROM due to pain. Right wrist pain Fall on same level from slipping, tripping or stumbling, initial encounter . TECHNIQUE: XR WRIST 3V PA/LAT/OBL RT, XR HAND 3V PA/LAT/OBL RT Laterality: RIGHT Number of different views (projections): 3 M: XB_1 COMPARISON: None RESULT: Right hand and right wrist: 3 images of each. No identified acute osseous abnormality. Old healed fracture base of the third proximal phalanx. Second MCP arthroplasty. Withheld information regarding location of the posttraumatic pain. IMPRESSION IMPRESSION: No acute osseous findings right wrist, right hand. Study constraints as above. Tearer Press Clipping: PSCB Transcribe Date/Time: Apr 09 2024 6:24P Dictated by : KARY JESSICA MD This examination was interpreted and the report reviewed and electronically signed by: KARY JESSICA MD on Apr 09 2024 6:43PM [facility] Absolute lymphocyte countOrd ered By: Remy Archer on 11-18-2023 Lymphocytes Auto (Unsp spec) [#/Vol] 0.98 10*3/uL 0.83-4.51 [facility] Automated lymphocyte count a s percentage of total leukocytesOrdered By: Remy Archer on 11-18-2023 Lymphocytes/100 WBC Auto (Unsp spec) 6.7 % 19-41 [facility] Basophil percentageOrdered B y: Remy Archer on 11-18-2023 Basophil percentage 0 SEEN /hpf 0-5 [facility] Basophils/100 WBC (Bld) 0.3 % 0-1 [facility] Chloride [Moles/Vol] 109 mmol/L 98-107 [facility] Eosinophils/100 WBC (Bld) 0.3 % 0-5 [facility] Glucose [Mass/Vol] 111 mg/dL 74-106 [facility] Comment on above: Fasting Glucose resu lt from 100 to 125 mg/dL suggests IMPAIRED HOMEOSTASIS per A.D.A. criteria. Hemoglobin (Bld) [Mass/Vol] 15.1 g/dL 12.0-15.0 [facility] Monocytes/100 WBC (Bld) 5.0 % 0-10 [facility] Neutrophils (Bld) [#/Vol] 12.8 10*3/uL 2.0-7.7 [facility] Neutrophils/100 WBC (Bld) 87.2 % 47-70 [facility] Potassium [Moles/Vol] 3.7 mmol/L 3.5-5.1 [facility] Sodium [Moles/Vol] 142 mmol/L 136-145 [facility] WBC (Bld) [#/Vol] 14.7 10*3/uL 4.4-11.0 [facility] Bilirubin Test strip Ql (U)O rdered By: Remy Archer on 11-18-2023 Bilirubin Ql (U) Negative Negative [facility] Determination of erythrocyte mean corpuscular volume (MCV)Ordered By: Remy Archer on 11-18-2023 MCV (RBC) [Entitic vol] 87.6 fL 81-99 [facility] Erythrocyte distribution wid th ratioOrdered By: Remy Archer on 11-18-2023 Erythrocyte distribution width (RBC) [Ratio] 12.5 % 11.6-14.6 [facility] Erythrocyte distribution wid th standard deviationOrdered By: Remy Archer on 11-18-2023 Erythrocyte distribution width (RBC) [Entitic vol] 40.0 fL 35.1-43.9 [facility] Hematocrit Auto (Bld) [Volum e fraction]Ordered By: Remy Archer on 11-18-2023 Hematocrit (Bld) [Volume fraction] 45.1 % 37-47 [facility] Immature granulocytes/100 WB C Auto (Bld)Ordered By: Remy Archer on 11-18-2023 Immature granulocytes/100 WBC (Bld) 0.500 % 0.0-0.9 [facility] Comment on above: IG% - Immature Granu locytes (promyelocytes, myelocytes and metamyelocytes) > 1% indicates that a LEFT SHIFT is Present. Ketones Test strip Ql (U)Ord ered By: Remy Archer on 11-18-2023 Ketones Ql (U) 15 mg/dl Negative [facility] Laboratory - Chemistry and C hemistry - challengeOrdered By: Remy Archer on 11-18-2023 CO2 [Moles/Vol] 26.0 mmol/L 21.0-32.0 [facility] Urea nitrogen/Creatinine [Mass ratio] 24.2 mg/mg 10-20 [facility] Laboratory - Hematology and Cell countsOrdered By: Remy Archer on 11-18-2023 MCH (RBC) [Entitic mass] 29.3 pg 27.0-32.0 [facility] MCHC (RBC) [Mass/Vol] 33.5 g/dL 32-36 [facility] Nucleated RBC/100 WBC (Bld) [Ratio] 0 % 0-5 [facility] Platelet mean volume (Bld) [Entitic vol] 10.0 fL 6.2-12.0 [facility] Platelets (Bld) [#/Vol] 254 10*3/uL 150-450 [facility] Mucus LM Ql (Urine sed)Order ed By: Remy Archer on 11-18-2023 Mucus Ql (Urine sed) 0 SEEN /hpf [facility] Nitrite Test strip Ql (U)Ord ered By: Remy Archer on 11-18-2023 Nitrite Ql (U) Negative Negative [facility] No Panel InformationOrdered By: Remy Archer on 11-18-2023 Urine RBC 0-5 SEEN /hpf 0-5 [facility] Estimated Creatinine Clearance Calc 41.69 ml/min [facility] Estimated GFR (MDRD) Amer 76 mL/min >60 [facility] Comment on above: GFR Calc Estimated GFR (MDRD) Non-Af Amer 63 mL/min >60 [facility] Comment on above: Non- GFR Calc Protein Test strip Ql (U)Ord ered By: Remy Archer on 11-18-2023 Protein Ql (U) Negative Negative [facility] RBC Auto (Bld) [#/Vol]Ordere d By: Remy Archer on 11-18-2023 RBC (Bld) [#/Vol] 5.15 10*6/uL 4.2-5.4 [facility] Serum or plasma calcium josé miguel urement (mass/volume)Ordered By: Remy Archer on 11-18-2023 Calcium [Mass/Vol] 9.6 mg/dL 8.5-10.1 [facility] Serum or plasma creatinine m easurement (mass/volume)Ordered By: Remy Archer on 11-18-2023 Creatinine [Mass/Vol] 0.91 mg/dL 0.55-1.02 [facility] Comment on above: The validity of the calculated GFR & GFRAA in patients over 70 years has not been determined. Clinical correlation is essential. Serum or plasma urea nitroge n measurement (mass/volume)Ordered By: Remy Archer on 11-18-2023 Urea nitrogen [Mass/Vol] 22 mg/dL 7-18 [facility] Squamous epithelial cells de tection in urine sediment by light microscopyOrdered By: Remy Archer on 11-18-2023 Epithelial cells.squamous LM Ql (Urine sed) 0 SEEN /hpf 5-10 [facility] Thin prep Papanicolaou smear with manual screeningOrdered By: Remy Archer on 11-18-2023 Thin prep Papanicolaou smear with manual screening 7 5-15 [facility] Urine blood detectionOrdered By: Remy Archer on 11-18-2023 RBC Ql (U) 10 /ul Negative [facility] Urine clarityOrdered By: Emily Archer on 11-18-2023 Clarity (U) Clear Clear [facility] Urine color determinationOrd ered By: Remy Archer on 11-18-2023 Color (U) Yellow Yellow [facility] Urine glucose detectionOrder ed By: Remy Archer on 11-18-2023 Glucose Ql (U) Normal mg/dl Normal [facility] Urine leukocyte esterase det ection by dipstickOrdered By: Remy Archer on 11-18-2023 Leukocyte esterase Test strip Ql (U) Negative Negative [facility] Urine pHOrdered By: Remy morley on 11-18-2023 pH (U) 6.5 [pH] 5.0 - 8.0 [facility] Urine sediment bacteria coun t by microscopy (number/high power field)Ordered By: Remy Archer on 11-18-2023 Bacteria LM.HPF (Urine sed) [#/Area] 0 /[HPF] None Seen [facility] Urine specific gravity measu rementOrdered By: Remy Archer on 11-18-2023 Specific gravity (U) [Rel density] 1.010 1.002-1.030 [facility] Urine urobilinogen measureme ntOrdered By: Remy Archer on 11-18-2023 Urobilinogen Ql (U) Normal mg/dl Normal [facility] INFLUENZA A&B MOLECULAR (POC )on 07-20-2023 Flu A (POCT) Positive Abnormal Negative [facility] Procedural Control Valid [facility] XR Chest PA and Lateralon IMPRESSION: No acute cardiopulmonary disease. Hiatal hernia. Tearer Press Clipping: DEZ Transcribe Date/Time: Oct 16 2022 1:47P Dictated by : UNIQUE BEAVERS MD This examination was interpreted and the report reviewed and electronically signed by: UNIQUE BEAVERS MD on Oct 16 2022 1:50PM [facility] DIVISION OF RADIOLOGY * * *Final Report* * * DATE OF EXAM: Oct 16 2022 1:43PM WOX 5291 - XR CHEST 2V FRONTAL/LAT / PROCEDURE REASON: multiple diagnoses * * * * Physician Interpretation * * * * EXAMINATION: CHEST RADIOGRAPH (2 VIEW FRONTAL & LATERAL) CLINICAL HISTORY: COPD (chronic obstructive pulmonary disease) with acute bronchitis (HCC) COPD (chronic obstructive pulmonary disease) with acute bronchitis (HCC) MQ: XC2_6 EXAM DATE/TIME: 10/16/2022 1:43 PM COMPARISON: No relevant prior studies available. RESULT: Lines, tubes, and devices: None. Lungs and pleura: No consolidation. No lung mass. No pleural effusion. No pneumothorax. Cardiomediastinal silhouette: The cardiac silhouette appears mildly prominent accentuated by magnification related to the AP technique. A moderate hiatal hernia is noted. Bones and soft tissues: Degenerative changes are noted in the thoracic spine. Old right rib fracture deformities are noted. DIVISION OF RADIOLOGY Provider, [facility] [place] - 10/16/2022 * * *Final Report* * * DATE OF EXAM: Oct 16 2022 1:43PM WOX 5291 - XR CHEST 2V FRONTAL/LAT / PROCEDURE REASON: multiple diagnoses * * * * Physician Interpretation * * * * EXAMINATION: CHEST RADIOGRAPH (2 VIEW FRONTAL & LATERAL) CLINICAL HISTORY: COPD (chronic obstructive pulmonary disease) with acute bronchitis (HCC) COPD (chronic obstructive pulmonary disease) with acute bronchitis (HCC) MQ: XC2_6 EXAM DATE/TIME: 10/16/2022 1:43 PM COMPARISON: No relevant prior studies available. RESULT: Lines, tubes, and devices: None. Lungs and pleura: No consolidation. No lung mass. No pleural effusion. No pneumothorax. Cardiomediastinal silhouette: The cardiac silhouette appears mildly prominent accentuated by magnification related to the AP technique. A moderate hiatal hernia is noted. Bones and soft tissues: Degenerative changes are noted in the thoracic spine. Old right rib fracture deformities are noted. IMPRESSION IMPRESSION: No acute cardiopulmonary disease. Hiatal hernia. Tearer Press Clipping: DEZ Transcribe Date/Time: Oct 16 2022 1:47P Dictated by : UNIQUE BEAVERS MD This examination was interpreted and the report reviewed and electronically signed by: UNIQUE BEAVERS MD on Oct 16 2022 1:50PM EST [facility] Radiology Study observation (narrative) [facility] XR Chest PA and LateralOrder ed By: Cc Provider on 10-16-2022 [facility] XR Foot - left AP and Latera l and obliqueon 06-11-2022 IMPRESSION: No radiographic evidence of acute osseous injury Tearer Press Clipping: [facility] Transcribe Date/Time: Jun 11 2022 4:29P Dictated by : SERGE COLON MD This examination was interpreted and the report reviewed and electronically signed by: SERGE COLON MD on Jun 11 2022 4:31PM EST DIVISION OF RADIOLOGY * * *Final Report* * * DATE OF EXAM: Jun 11 2022 10:27AM WOX [id number] - XR FOOT 3V AP/LAT/OBL LT / PROCEDURE REASON: Injury of left foot, sequela * * * * Physician Interpretation * * * * CLINICAL INDICATION: Injury TECHNIQUE: 3 view radiographic study of the left foot COMPARISON: Radiograph dated August 27, 2018 FINDINGS: No acute fracture or dislocation identified. Severe first metatarsophalangeal joint osteoarthritis with joint space narrowing, subchondral sclerosis and marginal osteophyte formation. Flexion of the second through fifth toes. Plantar and miniscule dorsal calcaneal enthesophytes. DIVISION OF RADIOLOGY Provider, [facility] [place] - 06/11/2022 * * *Final Report* * * DATE OF EXAM: Jun 11 2022 10:27AM WOX [id number] - XR FOOT 3V AP/LAT/OBL LT / PROCEDURE REASON: Injury of left foot, sequela * * * * Physician Interpretation * * * * CLINICAL INDICATION: Injury TECHNIQUE: 3 view radiographic study of the left foot COMPARISON: Radiograph dated August 27, 2018 FINDINGS: No acute fracture or dislocation identified. Severe first metatarsophalangeal joint osteoarthritis with joint space narrowing, subchondral sclerosis and marginal osteophyte formation. Flexion of the second through fifth toes. Plantar and miniscule dorsal calcaneal enthesophytes. IMPRESSION IMPRESSION: No radiographic evidence of acute osseous injury Tearer Press Clipping: DEZ Transcribe Date/Time: Jun 11 2022 4:29P Dictated by : SERGE COLON MD This examination was interpreted and the report reviewed and electronically signed by: SERGE COLON MD on Jun 11 2022 4:31PM EST [facility] Radiology Study observation (narrative) [facility] XR Foot - left AP and Latera l and obliqueOrdered By: [facility] Provider on 06-11-2022 [facility] SPIROMETRY - BASELINE AND PO ST ERINATORon 01-29-2022 [id number]% POST (L/S) 1.68 L/S [facility] [id number]% PRE (L/S) 2.01 L/S [facility] FEV1 PRE (L) 1.85 L [facility] FEV1/FVC POST (%) 0.80 % [facility] FEV1/FVC PRE (%) 0.81 % [facility] FEV1_POST (L) 1.82 L [facility] FVC POST (L) 2.27 L [facility] FVC PRE (L) 2.27 L [facility] PEF POST (L/S) 6.04 L/S [facility] PEF PRE (L/S) 4.61 L/S [facility] Absolute lymphocyte counton 11-22-2021 Lymphocytes Auto (Unsp spec) [#/Vol] 1.44 10*3/uL 0.83-4.51 [facility] Work Phone: Basophil percentageon 2021 Basophils/100 WBC (Bld) 0.4 % 0-1 [facility] Work Phone: Bilirubin [Mass/Vol] 0.70 mg/dL 0.20-1.00 [facility] Work Phone: Comment on above: For patients on eltr ombopag therapy, use of Dimension [place] TBIL is not recommended. Chloride [Moles/Vol] 106 mmol/L 98-107 [facility] Work Phone: Eosinophils/100 WBC (Bld) 0.4 % 0-5 [facility] Work Phone: Glucose [Mass/Vol] 117 mg/dL 74-106 [facility] Work Phone: Comment on above: Fasting Glucose resu lt from 100 to 125 mg/dL suggests IMPAIRED HOMEOSTASIS per A.D.A. criteria. Neutrophils (Bld) [#/Vol] 8.8 10*3/uL 2.0-7.7 [facility] Work Phone: Neutrophils/100 WBC (Bld) 77.9 % 47-70 [facility] Work Phone: Potassium [Moles/Vol] 3.8 mmol/L 3.5-5.1 [facility] Work Phone: Protein [Mass/Vol] 8.0 g/dL 6.4-8.2 [facility] Work Phone: Sodium [Moles/Vol] 137 mmol/L 136-145 [facility] Work Phone: [phone] WBC (Bld) [#/Vol] 11.3 10*3/uL 4.4-11.0 [facility] Work Phone: [phone] Blood erythrocytes count (nu mber/volume)on 11-22-2021 RBC (Bld) [#/Vol] 5.24 10*6/uL 4.2-5.4 [facility] Work Phone: [phone] Blood hemoglobin measurement (mass/volume)on 11-22-2021 Hemoglobin (Bld) [Mass/Vol] 15.8 g/dL 12.0-15.0 [facility] Work Phone: [phone] Blood lymphocytes/100 leukoc yteson 11-22-2021 Lymphocytes/100 WBC (Bld) 12.7 % 19-41 [facility] Work Phone: [phone] Blood monocytes/100 leukocyt eson 11-22-2021 Monocytes/100 WBC (Bld) 8.4 % 0-10 [facility] Work Phone: [phone] Blood platelet mean volumeon 11-22-2021 Platelet mean volume (Bld) [Entitic vol] 9.6 fL 6.2-12.0 [facility] Work Phone: [phone] Determination of erythrocyte mean corpuscular volume (MCV)on 11-22-2021 MCV (RBC) [Entitic vol] 87.0 fL 81-99 [facility] Work Phone: [phone] Hematocrit Auto (Bld) [Volum e fraction]on 11-22-2021 Hematocrit (Bld) [Volume fraction] 45.6 % 37-47 [facility] Work Phone: [phone] Laboratory - Chemistry and C hemistry - challengeon 11-22-2021 ALP [Catalytic activity/Vol] 103 U/L 45-117 [facility] Work Phone: [phone] ALT [Catalytic activity/Vol] 23 U/L 13-56 [facility] Work Phone: [phone] CO2 [Moles/Vol] 26.0 mmol/L 21.0-32.0 [facility] Work Phone: [phone] Globulin (S) [Mass/Vol] 4.1 g/dL 2.2-4.2 [facility] Work Phone: [phone] Lipase [Catalytic activity/Vol] 129 U/L 73-393 [facility] Work Phone: [phone] Urea nitrogen/Creatinine [Mass ratio] 18.8 mg/mg 10-20 [facility] Work Phone: [phone] Laboratory - Hematology and Cell countson 11-22-2021 Erythrocyte distribution width (RBC) [Entitic vol] 38.6 fL 35.1-43.9 [facility] Work Phone: [phone] Erythrocyte distribution width (RBC) [Ratio] 12.1 % 11.6-14.6 [facility] Work Phone: [phone] Immature granulocytes/100 WBC (Bld) 0.200 % 0.0-0.9 [facility] Work Phone: [phone] Comment on above: IG% - Immature Granu locytes (promyelocytes, myelocytes and metamyelocytes) > 1% indicates that a LEFT SHIFT is Present. MCH (RBC) [Entitic mass] 30.2 pg 27.0-32.0 [facility] Work Phone: [phone] Nucleated RBC/100 WBC (Bld) [Ratio] 0 % 0-5 [facility] Work Phone: [phone] MCHC Auto (RBC) [Mass/Vol]on 11-22-2021 MCHC (RBC) [Mass/Vol] 34.6 g/dL 32-36 [facility] Work Phone: [phone] No Panel Informationon 11-22 Estimated Creatinine Clearance Calc 33.96 ml/min [facility] Work Phone: [phone] Estimated GFR (MDRD) Amer 67 mL/min >60 [facility] Work Phone: [phone] Comment on above: GFR Calc Estimated GFR (MDRD) Non-Af Amer 56 mL/min >60 [facility] Work Phone: Comment on above: Non- GFR Calc Troponin I High Sensitivity 8 pg/mL 3.0-54.0 [facility] Work Phone: Comment on above: Please Note: New Ewelina t Units and Gender Specific Reference Ranges. For more information see Policy Stat Procedure [place] High Sensitivity Troponin (TNIH) and attachments. Platelets bldon 11-22-2021 Platelets (Bld) [#/Vol] 278 10*3/uL 150-450 [facility] Work Phone: [phone] Serum or plasma albumin josé miguel urement (mass/volume)on 11-22-2021 Albumin [Mass/Vol] 3.9 g/dL 3.2-5.0 [facility] Work Phone: [phone] Serum or plasma albumin/glob ulin mass ratioon 11-22-2021 Albumin/Globulin [Mass ratio] 1.0 {ratio} 0.9-2.4 [facility] Work Phone: [phone] Serum or plasma calcium josé miguel urement (mass/volume)on 11-22-2021 Calcium [Mass/Vol] 9.4 mg/dL 8.5-10.1 [facility] Work Phone: [phone] Serum or plasma creatinine m easurement (mass/volume)on 11-22-2021 Creatinine [Mass/Vol] 1.01 mg/dL 0.55-1.02 [facility] Work Phone: Comment on above: The validity of the calculated GFR & GFRAA in patients over 70 years has not been determined. Clinical correlation is essential. Serum or plasma urea nitroge n measurement (mass/volume)on 11-22-2021 Urea nitrogen [Mass/Vol] 19 mg/dL 7-18 [facility] Work Phone: [phone] Thin prep Papanicolaou smear with manual screeningon 11-22-2021 Thin prep Papanicolaou smear with manual screening 16 U/L 15-37 [facility] Work Phone: [phone] Thin prep Papanicolaou smear with manual screening 5 5-15 [facility] Work Phone: Office Visit: COPD stage 1on 04-24-2017 Documentation of current medications (procedure) Done Invalid Interpretation Code [facility] Work Phone: Fall risk assessment No Invalid Interpretation Code [facility] Work Phone: Tobacco smoking status NHIS Never Invalid Interpretation Code [facility] Work Phone: Tobacco use CPHS Never smoker Invalid Interpretation Code [facility] Work Phone: Vital Signs Date Time Vital Sign Value Performing Clinician Facility 03-01-2025 08:03-0400 Body temperature 98.1 [degF] Dr. Da Castro MD Work Phone: 0(249)602-889079 [place] [address] 03-01-2025 08:03-0400 Diastolic blood pressure 76 mm[Hg] Dr. Da Castro MD Work Phone: 3(458)704-799079 [place] [address] 03-01-2025 08:03-0400 Heart rate 71 /min Dr. Da Castro MD Work Phone: 4(156)644-670979 [place] [address] 03-01-2025 08:03-0400 Respiratory rate 16 /min Dr. Da Castro MD Work Phone: 1(910)473-027479 [place] [address] 03-01-2025 08:03-0400 Systolic blood pressure 149 mm[Hg] Dr. Da Castro MD Work Phone: 1(630)712-770579 [place] [address] 02-16-2025 13:13-0400 Body mass index (BMI) [Ratio] 25.1 kg/m2 Dr. Da Castro MD Work Phone: 0(992)495-754879 [place] [address] 02-16-2025 13:13-0400 Body temperature 98.1 [degF] Dr. Da Castro MD Work Phone: 4(024)112-170879 [place] [address] 02-16-2025 13:13-0400 Diastolic blood pressure 83 mm[Hg] Dr. Da Castro MD Work Phone: 9(290)993-348679 [place] [address] 02-16-2025 13:13-0400 Heart rate 80 /min Dr. Da Castro MD Work Phone: 4(259)423-861279 [place] [address] 02-16-2025 13:13-0400 Respiratory rate 18 /min Dr. Da Castro MD Work Phone: [facility] 02-16-2025 13:13-0400 Systolic blood pressure 150 mm[Hg] Dr. Da Castro MD Work Phone: [facility] 02-09-2025 13:31-0400 Body height 157.[address] Da Castro MD Work Phone: [facility] 02-09-2025 13:31-0400 Body weight 62.[address] Da Castro MD Work Phone: [facility] 02-03-2025 09:46-0400 Body temperature 97.39 [degF] [facility] Work Phone: [facility] 02-03-2025 09:46-0400 Diastolic blood pressure 80 mm[Hg] [facility] Work Phone: [facility] 02-03-2025 09:46-0400 Heart rate 67 /min [facility] Work Phone: [facility] 02-03-2025 09:46-0400 SaO2% (BldA) [Mass fraction] 98 % [facility] Work Phone: [facility] 02-03-2025 09:46-0400 Systolic blood pressure 149 mm[Hg] [facility] Work Phone: [facility] 02-01-2025 08:19-0400 Body mass index (BMI) [Ratio] 25.24 kg/m2 Da Castro MD Work Phone: [facility] 02-01-2025 08:19-0400 Body weight 62.6 kg Da Castro MD Work Phone: [facility] 02-01-2025 08:19-0400 Diastolic blood pressure 86 mm[Hg] Da Castro MD Work Phone: [facility] 02-01-2025 08:19-0400 Heart rate 77 /min Da Castro MD Work Phone: [facility] 02-01-2025 08:19-0400 Respiratory rate 16 /min Da Castro MD Work Phone: [facility] 02-01-2025 08:19-0400 SaO2% (BldA) [Mass fraction] 99 % Da Castro MD Work Phone: [facility] 02-01-2025 08:19-0400 Systolic blood pressure 159 mm[Hg] Da Castro MD Work Phone: [facility] 01-24-2025 09:09-0400 Body mass index (BMI) [Ratio] 25.16 kg/m2 Guy Barton MD Work Phone: [facility] 01-24-2025 09:09-0400 Body temperature 98.8 [degF] Guy Barton MD Work Phone: [facility] 01-24-2025 09:09-0400 Body weight 62.4 kg Guy Barton MD Work Phone: [facility] 01-24-2025 09:09-0400 Diastolic blood pressure 86 mm[Hg] Guy Barton MD Work Phone: [facility] 01-24-2025 09:09-0400 Heart rate 92 /min Guy Barton MD Work Phone: [facility] 01-24-2025 09:09-0400 Respiratory rate 20 /min Guy Barton MD Work Phone: [facility] 01-24-2025 09:09-0400 Systolic blood pressure 144 mm[Hg] Guy Barton MD Work Phone: [facility] 2025 10:13-0400 Body height 157.5 cm Da Castro MD Work Phone: [facility] 2025 10:13-0400 Body mass index (BMI) [Ratio] 25.32 kg/m2 Da Castro MD Work Phone: [facility] 2025 10:13-0400 Body weight 62.8 kg Da Castro MD Work Phone: 3(466)032-904739 [place] [address] 2025 10:13-0400 Diastolic blood pressure 77 mm[Hg] Da Castro MD Work Phone: 9(198)560-026639 [place] [address] 2025 10:13-0400 Heart rate 74 /min Da Castro MD Work Phone: 3(651)398-644739 [place] [address] 2025 10:13-0400 SaO2% (BldA) [Mass fraction] 100 % Da Castro MD Work Phone: 1(519)106-188039 [place] [address] 2025 10:13-0400 Systolic blood pressure 135 mm[Hg] Da Castro MD Work Phone: 4(913)117-640239 [place] [address] 01-11-2025 14:05-0400 Body temperature 97.9 [degF] Dr. Da Castro MD Work Phone: 4(732)013-924179 [place] [address] 01-11-2025 14:05-0400 Diastolic blood pressure 69 mm[Hg] Dr. Da Castro MD Work Phone: 6(232)454-508379 [place] [address] 01-11-2025 14:05-0400 Heart rate 75 /min Dr. Da Castro MD Work Phone: 2(142)860-309979 [place] [address] 01-11-2025 14:05-0400 Respiratory rate 16 /min Dr. Da Castro MD Work Phone: 4(034)834-193879 [place] [address] 01-11-2025 14:05-0400 SaO2% (BldA) [Mass fraction] 94 % Dr. Da Castro MD Work Phone: 0(610)787-680109 [place] [address] 01-11-2025 14:05-0400 Systolic blood pressure 136 mm[Hg] Dr. Da Castro MD Work Phone: 0(087)598-152379 [place] [address] 01-10-2025 11:37-0400 Body height 157.[address] Da Castro MD Work Phone: 3(230)555-688279 [place] [address] 01-10-2025 11:37-0400 Body mass index (BMI) [Ratio] 24.7 kg/m2 Dr. Da Castro MD Work Phone: 4(348)487-656679 [place] [address] 01-10-2025 11:37-0400 Body weight 61.[address] Da Castro MD Work Phone: 2(079)937-293479 [place] [address] 01-10-2025 09:50-0400 Body temperature 98 [degF] Dr. Da Castro MD Work Phone: 9(718)933-132879 [place] [address] 01-10-2025 09:50-0400 Diastolic blood pressure 78 mm[Hg] Dr. Da Castro MD Work Phone: 2(230)354-914079 [place] [address] 01-10-2025 09:50-0400 Heart rate 78 /min Dr. Da Castro MD Work Phone: 1(825)595-729279 [place] [address] 01-10-2025 09:50-0400 Respiratory rate 19 /min Dr. Da Castro MD Work Phone: 3(829)772-038879 [place] [address] 01-10-2025 09:50-0400 SaO2% (BldA) [Mass fraction] 97 % Dr. Da Castro MD Work Phone: 8(573)817-988579 [place] [address] 01-10-2025 09:50-0400 Systolic blood pressure 147 mm[Hg] Dr. Da Castro MD Work Phone: 1(545)625-808379 [place] [address] 01-10-2025 07:24-0400 Body height 157.[address] Da Castro MD Work Phone: 5(458)010-003179 [place] [address] 01-10-2025 07:24-0400 Body mass index (BMI) [Ratio] 28.9 kg/m2 Dr. Da Castro MD Work Phone: 7(291)106-063179 [place] [address] 01-10-2025 07:24-0400 Body weight 71.[address] Da Castro MD Work Phone: 1(121)109-919679 [place] [address] 12-31-2024 20:00-0400 Body temperature 97.8 [degF] Dr. Da Castro MD Work Phone: 2(147)209-400579 [place] [address] 12-31-2024 20:00-0400 Diastolic blood pressure 74 mm[Hg] Dr. Da Castro MD Work Phone: [facility] 12-31-2024 20:00-0400 Heart rate 64 /min Dr. Da Castro MD Work Phone: [facility] 12-31-2024 20:00-0400 SaO2% (BldA) [Mass fraction] 96 % Dr. Da Castro MD Work Phone: [facility] 12-31-2024 20:00-0400 Systolic blood pressure 161 mm[Hg] Dr. Da Castro MD Work Phone: 8(212)867-716879 [place] [address] 12-31-2024 15:45-0400 Body height 157.[address] Da Castro MD Work Phone: 8(385)686-526479 [place] [address] 12-31-2024 15:45-0400 Body mass index (BMI) [Ratio] 26.6 kg/m2 Dr. Da Castro MD Work Phone: [facility] 12-31-2024 15:45-0400 Body weight 66.[address] Da Castro MD Work Phone: [facility] 12-31-2024 15:27-0400 Body temperature 97.3 [degF] Sundeep Castano APRN.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 Work Phone: [facility] 12-31-2024 15:27-0400 Diastolic blood pressure 99 mm[Hg] Sundeep Castano APRN.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 Work Phone: [facility] 12-31-2024 15:27-0400 Heart rate 70 /min Sundeep Castano APRN.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 Work Phone: [facility] 12-31-2024 15:27-0400 Respiratory rate 18 /min Sundeep Castano APRN.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 Work Phone: [facility] 12-31-2024 15:27-0400 SaO2% (BldA) [Mass fraction] 100 % Sundeep Castano APRN.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 Work Phone: [facility] 12-31-2024 15:27-0400 Systolic blood pressure 179 mm[Hg] Sundeep Omaira DRILL SERGEANT.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 Work Phone: [facility] 12-10-2024 12:35-0400 Diastolic blood pressure 74 mm[Hg] Mona Older DRILL SERGEANT.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 Work Phone: [facility] Comment on above: BP Arlette 12-10-2024 12:35-0400 Systolic blood pressure 135 mm[Hg] Mona Older DRILL SERGEANT.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 Work Phone: [facility] Comment on above: BP Arlette 12-10-2024 12:16-0400 Heart rate 77 /min Mona Older DRILL SERGEANT.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 Work Phone: [facility] 12-10-2024 12:16-0400 Respiratory rate 16 /min Mona Older DRILL SERGEANT.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 Work Phone: [facility] 12-10-2024 12:16-0400 SaO2% (BldA) [Mass fraction] 97 % Mona Older DRILL SERGEANT.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 Work Phone: [facility] 12-06-2024 07:55-0400 Diastolic blood pressure 82 mm[Hg] Mona Older DRILL SERGEANT.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 Work Phone: [facility] 12-06-2024 07:55-0400 Heart rate 84 /min Mona Older DRILL SERGEANT.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 Work Phone: [facility] 12-06-2024 07:55-0400 Respiratory rate 16 /min Mona Older DRILL SERGEANT.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 Work Phone: [facility] 12-06-2024 07:55-0400 SaO2% (BldA) [Mass fraction] 95 % Mona Older DRILL SERGEANT.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 Work Phone: [facility] 12-06-2024 07:55-0400 Systolic blood pressure 156 mm[Hg] Mona Older DRILL SERGEANT.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 Work Phone: [facility] 12-02-2024 09:32-0400 Diastolic blood pressure 74 mm[Hg] Mona Older DRILL SERGEANT.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 Work Phone: [facility] 12-02-2024 09:32-0400 Heart rate 76 /min Mona Older DRILL SERGEANT.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 Work Phone: [facility] 12-02-2024 09:32-0400 Respiratory rate 16 /min Mona Older DRILL SERGEANT.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 Work Phone: [facility] 12-02-2024 09:32-0400 SaO2% (BldA) [Mass fraction] 95 % Mona Older DRILL SERGEANT.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 Work Phone: [facility] 12-02-2024 09:32-0400 Systolic blood pressure 152 mm[Hg] Mona Older DRILL SERGEANT.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 Work Phone: [facility] 07-12-2024 10:03-0500 Diastolic blood pressure 76 mm[Hg] Mona Older DRILL SERGEANT.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 Work Phone: [facility] Comment on above: BP Arlette 07-12-2024 10:03-0500 Systolic blood pressure 131 mm[Hg] Mona Older DRILL SERGEANT.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 Work Phone: [facility] Comment on above: BP Arlette 07-12-2024 09:24-0500 Body mass index (BMI) [Ratio] 26.52 kg/m2 Mona Older DRILL SERGEANT.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 Work Phone: [facility] 07-12-2024 09:24-0500 Body weight 65.77 kg Mona Older DRILL SERGEANT.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 Work Phone: [facility] 07-12-2024 09:24-0500 Heart rate 80 /min Mona Older DRILL SERGEANT.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 Work Phone: [facility] 07-12-2024 09:24-0500 Respiratory rate 16 /min Mona Older DRILL SERGEANT.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 Work Phone: [facility] 04-09-2024 16:48-0400 Body mass index (BMI) [Ratio] 26.89 kg/m2 Lila Gray DRILL SERGEANT.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 Work Phone: [facility] 04-09-2024 16:48-0400 Body temperature 97.9 [degF] Lila Gray DRILL SERGEANT.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 Work Phone: [facility] 04-09-2024 16:48-0400 Body weight 66.68 kg Lila Gray DRILL SERGEANT.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 Work Phone: [facility] 04-09-2024 16:48-0400 Diastolic blood pressure 99 mm[Hg] Lila Gray DRILL SERGEANT.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 Work Phone: [facility] 04-09-2024 16:48-0400 Heart rate 105 /min Lila Gray DRILL SERGEANT.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 Work Phone: [facility] 04-09-2024 16:48-0400 Respiratory rate 18 /min Lila Gray DRILL SERGEANT.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 Work Phone: [facility] 04-09-2024 16:48-0400 SaO2% (BldA) [Mass fraction] 95 % Lila Gray DRILL SERGEANT.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 Work Phone: [facility] 04-09-2024 16:48-0400 Systolic blood pressure 174 mm[Hg] Lila Gray DRILL SERGEANT.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 Work Phone: [facility] 03-06-2024 15:03-0400 Body mass index (BMI) [Ratio] 27.02 kg/m2 Krislyn Aberegg PA Work Phone: [facility] 03-06-2024 15:03-0400 Body temperature 97.9 [degF] Krislyn Aberegg PA Work Phone: [facility] 03-06-2024 15:03-0400 Body weight 67 kg Krislyn Aberegg PA Work Phone: [facility] 03-06-2024 15:03-0400 Diastolic blood pressure 70 mm[Hg] Krislyn Aberegg PA Work Phone: [facility] 03-06-2024 15:03-0400 Heart rate 83 /min Krislyn Aberegg PA Work Phone: [facility] 03-06-2024 15:03-0400 Respiratory rate 16 /min Krislyn Aberegg PA Work Phone: [facility] 03-06-2024 15:03-0400 SaO2% (BldA) [Mass fraction] 97 % Krislyn Aberegg PA Work Phone: [facility] 03-06-2024 15:03-0400 Systolic blood pressure 116 mm[Hg] Krislyn Aberegg PA Work Phone: [facility] 01-05-2024 08:56-0400 Diastolic blood pressure 76 mm[Hg] Mona Older DRILL SERGEANT.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 Work Phone: [facility] Comment on above: arlette bp 01-05-2024 08:56-0400 Systolic blood pressure 127 mm[Hg] Mona Older DRILL SERGEANT.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 Work Phone: [facility] Comment on above: arlette bp 01-05-2024 08:14-0400 Body height 157.5 cm Mona Older DRILL SERGEANT.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 Work Phone: [facility] 01-05-2024 08:14-0400 Body mass index (BMI) [Ratio] 25.79 kg/m2 Mona Older DRILL SERGEANT.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 Work Phone: [facility] 01-05-2024 08:14-0400 Body weight 63.96 kg Mona Older DRILL SERGEANT.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 Work Phone: [facility] 01-05-2024 08:14-0400 Heart rate 77 /min Mona Older DRILL SERGEANT.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 Work Phone: [facility] 01-05-2024 08:14-0400 Respiratory rate 12 /min Mona Older DRILL SERGEANT.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 Work Phone: [facility] 01-05-2024 08:14-0400 SaO2% (BldA) [Mass fraction] 96 % Mona Older DRILL SERGEANT.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 Work Phone: [facility] 12-15-2023 08:46-0400 Body height 157.5 cm Mili Escamilla MD Work Phone: [facility] 12-15-2023 08:46-0400 Body mass index (BMI) [Ratio] 25.94 kg/m2 Mili Escamilla MD Work Phone: [facility] 12-15-2023 08:46-0400 Body temperature 97.2 [degF] Mili Escamilla MD Work Phone: [facility] 12-15-2023 08:46-0400 Body weight 64.32 kg Mili Escamilla MD Work Phone: [facility] 12-15-2023 08:46-0400 Diastolic blood pressure 80 mm[Hg] Mili Escamilla MD Work Phone: [facility] 12-15-2023 08:46-0400 Heart rate 83 /min Mili Escamilla MD Work Phone: [facility] 12-15-2023 08:46-0400 Respiratory rate 20 /min Mili Escamilla MD Work Phone: [facility] 12-15-2023 08:46-0400 SaO2% (BldA) [Mass fraction] 98 % Miil Escamilla MD Work Phone: [facility] 12-15-2023 08:46-0400 Systolic blood pressure 120 mm[Hg] Mili Escamilla MD Work Phone: [facility] 11-24-2023 09:04-0400 Body temperature 97.7 [degF] Shelia Rigoberto DRILL SERGEANT.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 Work Phone: [facility] 11-24-2023 09:04-0400 Body weight 63.5 kg Shelia Rigoberto DRILL SERGEANT.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 Work Phone: [facility] 11-24-2023 09:04-0400 Diastolic blood pressure 80 mm[Hg] Shelia Rigoberto DRILL SERGEANT.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 Work Phone: [facility] 11-24-2023 09:04-0400 Heart rate 64 /min Shelia Rigoberto DRILL SERGEANT.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 Work Phone: [facility] 11-24-2023 09:04-0400 Respiratory rate 20 /min Shelia Rigoberto DRILL SERGEANT.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 Work Phone: [facility] 11-24-2023 09:04-0400 Systolic blood pressure 146 mm[Hg] Shelia Harkinsr DRILL SERGEANT.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 Work Phone: [facility] 11-18-2023 22:05-0400 Body temperature 98.7 [degF] [facility] 11-18-2023 22:05-0400 Diastolic blood pressure 66 mm[Hg] [facility] 11-18-2023 22:05-0400 Heart rate 78 /min [facility] 11-18-2023 22:05-0400 Respiratory rate 18 /min [facility] 11-18-2023 22:05-0400 SaO2% (BldA) [Mass fraction] 93 % [facility] 11-18-2023 22:05-0400 Systolic blood pressure 153 mm[Hg] [facility] 11-18-2023 19:17-0400 Body mass index (BMI) [Ratio] 27.5 kg/m2 [facility] 11-18-2023 19:17-0400 Body weight 68.3 kg [facility] 11-18-2023 18:33-0400 Body height 157.48 cm [facility] 07-20-2023 13:00-0500 Body temperature 99.81 [degF] Lanie Williamson-Lucian DRILL SERGEANT.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 Work Phone: [facility] 07-20-2023 13:00-0500 Body weight 66.22 kg Lanie Williamson-Lucian DRILL SERGEANT.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 Work Phone: [facility] 07-20-2023 13:00-0500 Diastolic blood pressure 83 mm[Hg] Lanie Gomezler-Wood DRILL SERGEANT.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 Work Phone: [facility] 07-20-2023 13:00-0500 Heart rate 84 /min Lanie Pracecilialer-Wood DRILL SERGEANT.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 Work Phone: [facility] 07-20-2023 13:00-0500 Respiratory rate 26 /min Lanie Praisler-Wood DRILL SERGEANT.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 Work Phone: [facility] 07-20-2023 13:00-0500 SaO2% (BldA) [Mass fraction] 94 % Lanie Williamson-Lucian DRILL SERGEANT.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 Work Phone: [facility] 07-20-2023 13:00-0500 Systolic blood pressure 137 mm[Hg] Lanie Williamson-Lucian DRILL SERGEANT.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 Work Phone: [facility] 06-23-2023 08:56-0400 Diastolic blood pressure 64 mm[Hg] Queenie Denbow PA-C Work Phone: [facility] 06-23-2023 08:56-0400 Systolic blood pressure 128 mm[Hg] Queenie Denbow PA-C Work Phone: [facility] 06-23-2023 08:05-0400 Body height 157.5 cm Queenie Denbow PA-C Work Phone: [facility] 06-23-2023 08:05-0400 Body temperature 98.01 [degF] Queenie Denbow PA-C Work Phone: [facility] 06-23-2023 08:05-0400 Body weight 67.59 kg Queenie Denbow PA-C Work Phone: [facility] 06-23-2023 08:05-0400 Heart rate 56 /min Queenie Denbow PA-C Work Phone: [facility] 06-23-2023 08:05-0400 Respiratory rate 12 /min Queenie Denbow PA-C Work Phone: [facility] 06-23-2023 08:05-0400 SaO2% (BldA) [Mass fraction] 95 % Queenie Denbow PA-C Work Phone: [facility] 12-19-2022 11:04-0400 Body temperature 98.6 [degF] Da Castro MD Work Phone: [facility] 12-19-2022 11:04-0400 Body weight 67.13 kg Da Castro MD Work Phone: [facility] 12-19-2022 11:04-0400 Diastolic blood pressure 80 mm[Hg] Da Castro MD Work Phone: [facility] 12-19-2022 11:04-0400 Heart rate 73 /min Da Castro MD Work Phone: [facility] 12-19-2022 11:04-0400 Respiratory rate 16 /min Da Castro MD Work Phone: [facility] 12-19-2022 11:04-0400 SaO2% (BldA) [Mass fraction] 97 % Da Castro MD Work Phone: [facility] 12-19-2022 11:04-0400 Systolic blood pressure 138 mm[Hg] Da Castro MD Work Phone: [facility] 06-11-2022 09:01-0400 Body temperature 98.4 [degF] Da Castro MD Work Phone: [facility] 06-11-2022 09:01-0400 Body weight 69.85 kg Da Castro MD Work Phone: [facility] 06-11-2022 09:01-0400 Diastolic blood pressure 90 mm[Hg] Da Castro MD Work Phone: [facility] 06-11-2022 09:01-0400 Heart rate 75 /min Da Castro MD Work Phone: [facility] 06-11-2022 09:01-0400 Respiratory rate 16 /min Da Castro MD Work Phone: [facility] 06-11-2022 09:01-0400 SaO2% (BldA) [Mass fraction] 97 % Da Castro MD Work Phone: [facility] 06-11-2022 09:01-0400 Systolic blood pressure 136 mm[Hg] Da Castro MD Work Phone: [facility] 03-07-2022 11:58-0400 Body weight 67.04 kg Da Castro MD Work Phone: [facility] 03-07-2022 11:58-0400 Diastolic blood pressure 80 mm[Hg] Da Castro MD Work Phone: [facility] 03-07-2022 11:58-0400 Heart rate 76 /min Da Castro MD Work Phone: [facility] 03-07-2022 11:58-0400 SaO2% (BldA) [Mass fraction] 95 % Da Castro MD Work Phone: [facility] 03-07-2022 11:58-0400 Systolic blood pressure 114 mm[Hg] Da Castro MD Work Phone: [facility] 02-20-2022 10:23-0400 Body height 157.5 cm Da Castro MD Work Phone: [facility] 02-20-2022 10:23-0400 Body temperature 97.59 [degF] Da Castro MD Work Phone: [facility] 02-20-2022 10:23-0400 Body weight 66.68 kg Da Castro MD Work Phone: [facility] 02-20-2022 10:23-0400 Diastolic blood pressure 56 mm[Hg] Da Castro MD Work Phone: [facility] 02-20-2022 10:23-0400 Heart rate 70 /min Da Castro MD Work Phone: [facility] 02-20-2022 10:23-0400 Respiratory rate 12 /min Da Castro MD Work Phone: [facility] 02-20-2022 10:23-0400 SaO2% (BldA) [Mass fraction] 99 % Da Castro MD Work Phone: [facility] 02-20-2022 10:23-0400 Systolic blood pressure 106 mm[Hg] Da Castro MD Work Phone: [facility] 02-13-2022 13:49-0400 Body height 157.[address] Da Castro Work Phone: [facility] Work Phone: 02-13-2022 13:49-0400 Body mass index (BMI) [Ratio] 27.4 kg/m2 Dr. Da Castro Work Phone: [facility] Work Phone: 02-13-2022 13:49-0400 Body weight 68.[address] Da Castro Work Phone: [facility] Work Phone: 02-13-2022 13:49-0400 Diastolic blood pressure 79 mm[Hg] Dr. Da Castro Work Phone: [facility] Work Phone: 02-13-2022 13:49-0400 Heart rate 84 /min Dr. Da Castro Work Phone: [facility] Work Phone: 02-13-2022 13:49-0400 SaO2% (BldA) [Mass fraction] 96 % Dr. Da Castro Work Phone: [facility] Work Phone: 02-13-2022 13:49-0400 Systolic blood pressure 142 mm[Hg] Dr. Da Castro Work Phone: [facility] Work Phone: 01-29-2022 09:16-0400 Body height 157.5 cm [facility] Work Phone: [facility] 01-29-2022 09:16-0400 Body weight 66.68 kg [facility] Work Phone: [facility] 01-29-2022 09:16-0400 Heart rate 82 /min [facility] Work Phone: [facility] 01-29-2022 09:16-0400 Respiratory rate 14 /min [facility] Work Phone: [facility] 01-29-2022 09:16-0400 SaO2% (BldA) [Mass fraction] 97 % [facility] Work Phone: [facility] 01-23-2022 08:08-0400 Body height 157.5 cm Da Castro MD Work Phone: [facility] 01-23-2022 08:08-0400 Body temperature 97.81 [degF] Da Castro MD Work Phone: [facility] 01-23-2022 08:08-0400 Body weight 66.68 kg Da Castro MD Work Phone: [facility] 01-23-2022 08:08-0400 Diastolic blood pressure 70 mm[Hg] Da Castro MD Work Phone: [facility] 01-23-2022 08:08-0400 Heart rate 75 /min Da Castro MD Work Phone: [facility] 01-23-2022 08:08-0400 Respiratory rate 12 /min Da Castro MD Work Phone: [facility] 01-23-2022 08:08-0400 SaO2% (BldA) [Mass fraction] 100 % Da Castro MD Work Phone: [facility] 01-23-2022 08:08-0400 Systolic blood pressure 130 mm[Hg] Da Castro MD Work Phone: [facility] 11-22-2021 17:14-0400 Diastolic blood pressure 78 mm[Hg] [facility] Work Phone: 11-22-2021 17:14-0400 Systolic blood pressure 120 mm[Hg] [facility] Work Phone: 11-22-2021 15:37-0400 Heart rate 83 /min [facility] Work Phone: 11-22-2021 15:37-0400 Respiratory rate 22 /min [facility] Work Phone: 11-22-2021 15:37-0400 SaO2% (BldA) [Mass fraction] 94 % [facility] Work Phone: 11-22-2021 13:05-0400 Body height 157.48 cm [facility] Work Phone: 11-22-2021 13:05-0400 Body mass index (BMI) [Ratio] 27 kg/m2 [facility] Work Phone: 11-22-2021 13:05-0400 Body temperature 97.6 [degF] [facility] Work Phone: 11-22-2021 13:05-0400 Body weight 67 kg [facility] Work Phone: 04-24-2017 06:14-0400 BMI (Body Mass Index) 25.2 kg/m2 Lila Plunkett BUILDING TECH [facility] Work Phone: 04-24-2017 06:14-0400 Body Temperature 97.2 [degF] Lila Plunkett BUILDING TECH [facility] Work Phone: 04-24-2017 06:14-0400 BP Diastolic 76 mm[Hg] Lila Plunkett BUILDING TECH [facility] Work Phone: 04-24-2017 06:14-0400 BP Systolic 125 mm[Hg] Lila Plunkett BUILDING TECH [facility] Work Phone: 04-24-2017 06:14-0400 Height 158.75 cm Lila Plunkett BUILDING TECH [facility] Work Phone: 04-24-2017 06:14-0400 Pulse (Heart Rate) 66 /min Lila Plunkett BUILDING TECH [facility] Work Phone: 04-24-2017 06:14-0400 Respiratory Rate 18 /min Lila Plunkett BUILDING TECH [facility] Work Phone: 04-24-2017 06:14-0400 Weight 63.5 kg Lila Plunkett BUILDING TECH [facility] Work Phone: 10-02-2016 08:24-0500 Body Temperature 96.98 [degF] Lila Plunkett BUILDING TECH [facility] Work Phone: 10-02-2016 08:24-0500 BSA (Body Surface Area) 1.71 m2 Lila Arzatechitra MUNOZ [facility] Work Phone: 10-02-2016 08:24-0500 Height 158.75 cm Lila Arzatechirta MUNOZ [facility] Work Phone: 10-02-2016 08:24-0500 Weight 69.09 kg Lila Plunkett BUILDING TECH [facility] Work Phone: Encounters Encounter Date Encounter Type Care Provider Facility Start: 05-31-2025 ambulatory [facility] Facility:[facility] Start: 05-24-2025 End: 05-24-2025 ambulatory [facility] Facility:[facility] Start: 05-24-2025 [facility] Start: 05-13-2025 ambulatory [facility] Facility:[facility] Start: 04-12-2025 End: 04-12-2025 ambulatory Laverne Dubose RN [employer] Comment on above: Primary Care Coordin ator- Other (Chart review) Start: 03-01-2025 Non-patient / Non-visit Dr. Frankie Arrington MD -[facility] Start: 03-01-2025 End: 03-24-[address] Da Castro MD Work Phone: [facility] [place] Start: 03-01-2025 End: 03-24-[address] Frankie Arrington MD -[facility] Work Phone: Start: 02-22-2025 Non-patient / Non-visit Dr. Frankie Arrington MD [facility] Start: 02-18-2025 Non-patient / Non-visit Dr. Frankie Arrington MD [facility] Start: 02-16-2025 Non-patient / Non-visit Dr. Frankie Arrington MD -[facility] Start: 02-16-2025 End: 02-21-[address] Da Castro MD Work Phone: [facility] Start: 02-16-2025 End: 02-21-[address] Frankie Arrington MD -[facility] Work Phone: Start: 02-09-2025 Non-patient / Non-visit Dr. 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, subsequent encounter (Primary Dx) Start: 02-01-2025 End: 02-01-2025 Office outpatient visit 25 minutes Da Castro MD Work Phone: [facility] [place] Comment on above: Ulcer of left lower extremity with fat layer exposed (HCC) (Primary Dx); Constipation, unspecified constipation type; Essential hypertension Start: 02-01-2025 End: 02-01-2025 ambulatory SELF Facility:[facility] Start: 01-24-2025 End: 01-24-2025 Office outpatient visit 25 minutes Guy Barton MD Work Phone: [facility] [place] Comment on above: Ulcer of left lower extremity, limited to breakdown of skin (HCC) (Primary Dx); Cellulitis of left lower extremity Start: 01-24-2025 End: 01-24-2025 ambulatory [facility] Facility:[facility] Start: 01-19-2025 End: 03-21-2025 Follow-up encounter Da Castro MD Work Phone: [facility] [place] Start: 2025 End: 2025 Telephone encounter Osmar Guerra MD Work Phone: Hematology/Oncology Comment on above: Appointment Start: 2025 End: 2025 ambulatory [facility] Facility:[facility] Start: 2025 End: 2025 Office outpatient visit 25 minutes Da Castro MD Work Phone: [facility] [place] Comment on above: 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 Adry Brown MD -[facility] Work Phone: Start: 01-10-2025 Non-patient / Non-visit Dr. Adry Brown MD -[facility] Work Phone: Start: 01-10-2025 End: 01-11-2025 ambulatory Jose David Brown Facility:[facility] Start: 01-10-2025 End: 01-11-2025 Evaluation and management of inpatient Dr. Jose David Brown MD -Medical Surgical 3 Work Phone: Start: 01-10-2025 End: 01-11-[address] Da Castro MD Work Phone: [facility] Work Phone: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 Chronic bronchitis, unspecified chronic bronchitis type (HCC) Dyslipidemia (high LDL; low HDL) Expected: 06/23/2023, Expires: 09/22/[address] [facility] Work Phone: Comment on above: Expected: 06/23/2023 , Expires: 09/22/2023 Start: 06-23-2023 End: 09-22-2023 Comprehensive metabolic 2000 panel - Serum or Plasma COMP METABOLIC PANEL Lab Routine Essential hypertension Chronic bronchitis, unspecified chronic bronchitis type (HCC) Dyslipidemia (high LDL; low HDL) Expected: 06/23/2023, Expires: 09/22/[address] [facility] Work Phone: Comment on above: Expected: 06/23/2023 , Expires: 09/22/2023 Start: 06-23-2023 End: 09-22-2023 Lipid 1996 panel - Serum or Plasma LIPID PANEL BASIC Lab Routine Dyslipidemia (high LDL; low HDL) Expected: 06/23/2023, Expires: 09/22/[address] [facility] Work Phone: Comment on above: Expected: 06/23/2023 , Expires: 09/22/2023 Start: 05-04-2023 [facility]ABET[facility]CREEN [facility] Start: 05-04-2023 Diabetes Screening Diabetes Screenin g [facility] Start: 04-25-2023 Covid-19 Vaccine ( season) Covid-19 Vaccine () [facility] Start: 04-25-2023 Influenza vaccination [facility] Start: 08-25-2022 ADVANCE DIRECTIVE DISCUSSION ADVANCE DIRECTIVE DISCUSSION [facility] Start: 08-25-2022 [facility] Start: 06-11-2022 End: 08-11-2022 Bacteria identified in Urine by Culture [facility] Work Phone: Comment on above: Expected: 06/11/2022 , Expires: 08/11/2022 Start: 06-11-2022 End: 08-11-2022 Urinalysis complete panel - Urine [facility] Work Phone: Comment on above: Expected: 06/11/2022 , Expires: 08/11/2022 Start: 04-25-2022 Influenza vaccination INFLUENZA (#1) [facility] Start: 08-25-2021 ADVANCE DIRECTIVE DISCUSSION ADVANCE DIRECTIVE DISCUSSION [facility] Start: 08-25-2021 [facility] Start: 04-10-2021 COVID-19 VACCINE (4 - Booster for Moderna series) COVID-19 VACCINE (4 - Booster for Moderna series) [facility] Start: 02-03-2021 COVID-19 VACCINE (4 - Booster for Moderna series) COVID-19 VACCINE (4 - Booster for Moderna series) [facility] Start: 02-03-2021 COVID-19 VACCINE (4 - Moderna series) COVID-19 VACCINE (4 - Moderna series) [facility] Start: 07-07-2019 Screening for osteoporosis Bone Density Screening [facility] Start: 10-21-2017 End: 10-21-2017 Appointment Appointment Pulmonary Medicine [facility] Work Phone: Start: 04-24-2017 End: 04-24-2017 Appointment Appointment Pulmonary Medicine [facility] Work Phone: Start: 04-24-2017 End: 04-24-2017 Follow Up Appt 6 months Follow Up Appt 6 months [facility] Work Phone: Start: 03-25-2017 End: 03-26-2017 Pulmonary Function Test - complete Pulmonary Function Test - complete [facility] Work Phone: Start: 03-25-2017 End: 03-26-2017 Pulmonary stress test/simple Pulmonary stress testing; simple (eg, 6-minute walk) [facility] Work Phone: Start: 10-02-2016 End: 03-26-2017 BWA BWA [facility] Work Phone: Start: 10-02-2016 End: 03-26-2017 Follow Up Appt 6 months Follow Up Appt 6 months [facility] Work Phone: Start: 04-03-2016 End: 04-03-2016 [facility] [place] Work Phone: Start: 04-03-2016 End: 04-03-2016 Follow Up Appt 6 months Follow Up Appt 6 months [facility] Work Phone: Start: 09-26-2015 End: 04-03-2016 Follow Up Appt 6 months Follow Up Appt 6 months [facility] Work Phone: Start: 09-26-2015 End: 09-30-2016 Pulmonary Function Test - complete Pulmonary Function Test - complete [facility] Work Phone: Start: 09-26-2015 End: 04-02-2016 Pulmonary stress test/simple Pulmonary stress testing; simple (eg, 6-minute walk) [facility] Work Phone: Start: 03-28-2015 End: 04-02-2016 Follow Up Appt 6 months Follow Up Appt 6 months [facility] Work Phone: Start: 03-28-2015 End: 04-02-2016 Tte w/doppler, complete Echo Complete with Color Flow [facility] [place] Work Phone: Start: 09-28-2014 End: 04-02-2016 Follow Up Appt 6 months Follow Up Appt 6 months [facility] Phone: Start: 06-29-2014 End: 04-02-2016 Follow Up Appt 3 months Follow Up Appt 3 months [facility] Phone: Start: 06-28-2014 End: 04-02-2016 Cholesterol Methylcholine inhalation challenge [facility] Phone: Start: 03-29-2014 End: 04-02-2016 Chest x-ray X-Ray, Chest, PA & Lateral [facility] Phone: Start: 03-29-2014 End: 04-02-2016 Follow Up Appt 3 months Follow Up Appt 3 months [facility] Phone: Start: 03-29-2014 End: 04-02-2016 Pulmonary Fuction Test - complete Pulmonary Fuction Test - complete [facility] Phone: Start: 2014 RSV Vaccine (1 - 1-d ose 75+ series) RSV Vaccine (1 - 1-dose 75+ series) [facility] Start: 05-14-2011 SHINGRIX VACCINE (2 of 3) TROTTER GRIX VACCINE (2 of 3) [facility] Start: 08-23-2008 Urine microalbumin profile [facility] Start: 1999 RSV Vaccine (1 - 1-d ose 60+ series) RSV Vaccine (1 - 1-dose 60+ series) [facility] Start: 1957 SPIROMETRY SPIROMETRY [facility] Bilirubin measuremen t, urine [facility] End: 02-18-2026 DXA Cervical and thoracic and lumbar spine Views for vertebral fracture DXA - VFA ASSESS ONLY Radiology Routine Age-related osteoporosis with current pathological fracture, initial encounter 1 Occurrences starting 2025 until 02/18/[address] [facility] Work Phone: Comment on above: 1 Occurrences starti ng 2025 until 02/18/2026 End: 02-17-2026 DXA Skeletal system.axial Views for bone density DXA-AXIAL SKELETON Radiology Routine Osteoporosis, unspecified osteoporosis type, unspecified pathological fracture presence 1 Occurrences starting 2025 until 02/17/2026 [facility] Comment on above: 1 Occurrences starti ng 2025 until 02/17/2026 Hemoglobin [Presence ] in Urine [facility] Measurement of keton es in urine using dipstick [facility] Microscopic urinalysis [facility] Organism count, microscopic method [facility] Patient Education [facility] Work Phone: Patient referral [facility] Work Phone: PFIZER-BIONTECH COVI D-19 VACCINE, AGE 12+ YR ([place]) PFIZER-BIONTECH COVID-19 VACCINE, AGE 12+ YR ([place]) Immunization/Injection Routine Encounter for immunization Ordered: 01/23/[address] [facility] Work Phone: Comment on above: Ordered: 01/23/2022 pH of Urine [facility] Radionuclide gastric emptying study [facility] Work Phone: SARS-CoV-2 (COVID-19 ) RNA [Presence] in Respiratory specimen by ELISSA with probe detection COVID NAAT, UPPER RESPIRATORY, ROUTINE Microbiology Routine Viral URI with cough Ordered: 07/20/[address] [facility] Work Phone: Comment on above: Ordered: 07/20/2023 Specific gravity of Urine [facility] End: 02-22-2023 SPIROMETRY - BASELINE AND POST DILATOR SPIROMETRY - BASELINE AND POST DILATOR PFT Routine Chronic obstructive pulmonary disease, unspecified COPD type (HCC) 1 Occurrences starting 01/23/2022 until 02/22/[address] [facility] Work Phone: Comment on above: 1 Occurrences starti ng 01/23/2022 until 02/22/2023 Urine dipstick for glucose [facility] Urine dipstick for leukocyte esterase [facility] Urine dipstick for nitrite [facility] Urine dipstick for protein [facility] Urine examination [facility] Urine microscopy: epithelial cells [facility] Urine microscopy: re d cells [facility] Urobilinogen [Presen ce] in Urine [facility] White blood cell [facility] End: 07-11-2023 XR FOOT GENERAL 3V AP/LAT/OBL LEFT XR FOOT GENERAL 3V AP/LAT/OBL LEFT Radiology Routine Injury of left foot, sequela 1 Occurrences starting 06/11/2022 until 07/11/[address] [facility] Work Phone: Comment on above: 1 Occurrences starti ng 06/11/2022 until 07/11/2023 XR FOOT GENERAL 3V AP/LAT/OBL LEFT XR FOOT GENERAL 3V AP/LAT/OBL LEFT Radiology Routine Injury of left foot, sequela 06/11/2022 10:27 AM EDT [facility] Work Phone: [facility] Immunizations Immunization Date Immunization Notes Care Provider [facility] 07-12-2024 influenza, high dose seasonal, preservative-free Mona Mancilla APRN.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 Work Phone: [facility] 07-12-2024 influenza virus vaccine, unspecified formulation Da Castro MD Work Phone: [facility] 08-28-2023 influenza virus vaccine, unspecified formulation Ricardo BUCIO Work Phone: [facility] 06-11-2022 influenza, high-dose , quadrivalent vaccine (FLUZONE HIGH DOSE QUADRIVALENT) Da Castro MD Work Phone: [facility] 06-11-2022 influenza virus vaccine, unspecified formulation Janay Bond RN [facility] 07-25-2021 influenza, high-dose , quadrivalent vaccine (FLUZONE HIGH DOSE QUADRIVALENT) Lanie Chery APRN.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 Work Phone: [facility] Work Phone: 12-09-2020 COVID-19 vaccine, fu ll dose (MODERNA) Lanie Chery APRN.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 Work Phone: [facility] Work Phone: 11-10-2020 COVID-19 vaccine, fu ll dose (MODERNA) Lanie Chery DRILL SERGEANT.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 Work Phone: [facility] Work Phone: 05-04-2020 influenza, high-dose , quadrivalent vaccine (FLUZONE HIGH DOSE QUADRIVALENT) Lanie Chery DRILL SERGEANT.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 Work Phone: [facility] 07-16-2019 influenza, high dose seasonal, preservative-free Lanie Williamson-Lucian DRILL SERGEANT.[facility] Work Phone: [facility] Work Phone: 06-24-2018 influenza, high dose seasonal, preservative-free Lanie Pradivina-Lucian DRILL SERGEANT.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 Work Phone: [facility] Work Phone: 06-12-2017 influenza, high dose seasonal, preservative-free Lanie Williamson-Lucian DRILL SERGEANT.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 Work Phone: [facility] Work Phone: 05-15-2016 influenza, high dose seasonal, preservative-free Lanei Pradivina-Lucian DRILL SERGEANT.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 Work Phone: [facility] Work Phone: 08-15-2015 pneumococcal conjuga te vaccine, 13 valent Lanie Chery DRILL SERGEANT.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 Work Phone: [facility] 05-15-2015 influenza, injectabl e, quadrivalent, preservative free Lanie Williamson-Lucian DRILL SERGEANT.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 Work Phone: [facility] Work Phone: 05-26-2012 influenza virus vaccine, unspecified formulation Lanie Chery DRILL SERGEANT.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 Work Phone: [facility] 05-15-2012 pneumococcal polysaccharide vaccine, 23 valent Lanie Chery DRILL SERGEANT.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 Work Phone: [facility] Work Phone: 03-19-2011 zoster vaccine, live Lanie Chery DRILL SERGEANT.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 Work Phone: [facility] 06-19-2010 influenza virus vaccine, unspecified formulation Lanie Chery DRILL SERGEANT.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 Work Phone: [facility] Work Phone: 08-22-2008 tetanus and diphther ia toxoids, adsorbed, preservative free, for adult use (2 Lf of tetanus toxoid and 2 Lf of diphtheria toxoid) Lanie Chery DRILL SERGEANT.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 Work Phone: [facility] Work Phone: 06-25-2006 influenza virus vaccine, unspecified formulation Lanie Chery DRILL SERGEANT.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 Work Phone: [facility] Work Phone: 05-25-2003 pneumococcal polysaccharide vaccine, 23 valent Lanie Chery DRILL SERGEANT.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 Work Phone: [facility] Work Phone: NEGATED: Highlighted row has not occurred!01-23-2022 COVID-19 vaccine, age 12+ yr ([employer] - [place] [employer]) Da Castro MD Work Phone: [facility] Work Phone: Comment on above: Deferred: OTHER Payers Date Payer Category Payer Self-pay [id number] 2015 Private Health Insurance HUMANA HUMANA MEDICARE SUPPLEMENT [id number] 2015-Present [phone] [address] [address] [place] [address] Indemnity [id number] 2015 Private Health Insurance [id number] 2015 Private Health Insurance [id number] 2003 Medicare MEDICARE MEDICAR E A AND B [id number] 2003-Present [phone] [place] [address] Medicare [id number] 2003 Medicare [id number] 2003 Medicare [id number] Unknown [id number] Unknown [id number] Unknown [id number] Unknown [id number] Unknown [id number] Unknown [id number] Unknown [id number] Unknown [id number] Social History Date Type Detail Facility Start: 03-06-2011 End: 02-09-2025 Tobacco smoking status NHIS Never smoked tobacco [facility] Start: 11-15-2021 End: 02-01-2025 Alcohol intake Current non-drinker of alcohol (finding) [facility] Start: 1940 Sex Assigned At Not on file [facility] Start: 11-05-2021 End: 03-07-2022 Exposure to SARS-CoV-2 (event) Not sure [facility] Work Phone: Start: 11-22-2021 End: 11-18-2023 Tobacco smoking status NHIS Unknown if ever smoked [facility] Start: 11-28-2020 Non-smoker [facility] Start: 1940 Sex Assigned At Female W [facility] Start: 03-06-2011 Tobacco use and exposure Smokeless tobacco non-user [facility] Work Phone: Start: 12-19-2022 End: 06-23-2023 History of Social function [facility] Work Phone: Start: 12-19-2022 End: 06-23-2023 Tobacco use panel [facility] Work Phone: Start: 07-26-2012 Adult Depression Screening Assessment 0 [facility] Work Phone: (I/We) worried wheth er (my/our) food would run out before (I/we) got money to buy more. Never true [facility] Do you feel stress - tense, restless, nervous, or anxious, or unable to sleep at night because your mind is troubled all the time - these days [OSQ] Only a little [facility] In the past 12 month s, was there a time when you were not able to pay the mortgage or rent on time? No [facility] Goals Date Patient Goal Desired Activity /State Personal health goal Comment on above: Formatting of this n ote might be different from the original. Be able to Fxn so she is able to help her Personal health goal Comment on above: Formatting of this n ote might be different from the original. Stay well and keep moving Personal health goal Comment on above: Formatting of this n ote might be different from the original. Patient has the following Chronic Obstructive Pulmonary Disease goals: Two PCP visits annually Education provided and reviewed with patient - sent on 02/18/23 Understanding COPD Patient will meet these goals by 02/19/24 (describe interventions done by PCC) Pt's Goal: Stay well and keep moving Comment on above: Formatting of this n ote might be different from the original. Be able to Fxn so she is able to help her Comment on above: Formatting of this n ote might be different from the original. Stay well and keep moving Comment on above: Formatting of this n ote might be different from the original. Patient has the following Chronic Obstructive Pulmonary Disease goals: Two PCP visits annually Education provided and reviewed with patient - sent on 02/18/23 Understanding COPD Patient will meet these goals by 02/19/24 (describe interventions done by PCC) Pt's Goal: Stay well and keep moving Functional Status Date Assessment Result Facility 01-11-2025 Functional status Ambulates;Bath room Privilege [facility] Work Phone: 02-23-2015 Are you deaf, or do you have serious difficulty hearing No 02/23/2015 9:52 AM Rosa M Ivey LPN No [facility] 02-23-2015 Are you blind, or do you have serious difficulty seeing, even when wearing glasses No 02/23/2015 9:52 AM Rosa M Ivey LPN No [facility] 02-23-2015 Do you have serious difficulty walking or climbing stairs Yes 02/23/2015 9:52 AM Rosa M Ivey LPN Yes [facility] 02-23-2015 Do you have difficul ty dressing or bathing No 02/23/2015 9:52 AM Rosa M Ivey LPN No [facility] 02-23-2015 Because of a physica l, mental, or emotional condition, do you have difficulty doing errands alone such as visiting a physician's office or shopping No 02/23/2015 9:52 AM Rosa M Ivey LPN No [facility] Mental Status Date Assessment Result Facility 01-10-2025 Cognitive function Voice/Name [facility] Work Phone: 02-23-2015 Because of a physica l, mental, or emotional condition, do you have serious difficulty concentrating, remembering, or making decisions No 02/23/2015 9:52 AM Rosa M Ivey LPN No [facility] Clinical Notes 04-03-2015 to 05-24-2025 Laverne Dubose RN - 04/12/2025 1:16 PM EDT Note Date & Type Note Facility 05-24-2025 Note HNO ID: [id number] Author: DA CASTRO MD Service: ? Author Type: Physician Type: Progress Notes Filed: 05/24/2025 11:07 Note Text: Jenni Strickland is a 85 year old female here for a Medicare wellness visit. Medicare Health Risk Assessment General Health Very good Exercise: Minutes/Day 30 min Exercise: Days/Week 7 days Alcohol: Daily Use Never Alcohol: Drinks/Day Patient does not drink Alcohol: 6 or more drinks Never Feel off balance No Concerns: Teeth/Dentures No Concerns: Sexual function Decline Troubled by feelings None of the above Frequency: Eating healthy diet Nearly every day ADLs requiring help None of the above Safety precautions in home/vehicle Yes Smoke, vape, chews tobacco No Difficulty hearing Yes, I wear a hearing aid Difficulty seeing No Current Providers Specialists: I have reviewed specialist-related care of the patient in the medical record. Medical/Family history review Reviewed and updated problem list, medical/surgical/family/social history, medications, and allergies. Opioid use review Opioid Medications (last 90 days) No data to display Anxiety/Depression screening no anxiety or depression Recommendation: no further intervention at this time Cognitive screening Cognitive screening reviewed and No further action needed (score 3-5). Functional Observation Was the patient's Timed Up AND Go test unsteady or >= 12 seconds? No Advance Care Planning Surrogate decision maker and/or advance care plan documented Measurements BP 148/73 Pulse 75 Resp 16 Wt 63 kg (139 lb) BMI 25.42 kg/m? Vision Screening: Follows with optometry/ophthalmology Assessment/Plan Medicare annual wellness visit, subsequent (Z00.00) - Counseled on healthy diet and regular exercise - Fall avoidance information provided - Personalized prevention plan provided Reason for Visit HPI The Jenni is a 85-year-old female, with a history of HTN, presenting for a Medicare Annual Wellness Visit. The Jenni reports that her blood pressure was elevated today, which she attributes to not having urinated since taking her furosemide. She notes that she usually urinates 2-5 times within the first hour after taking the medication. She is currently taking amlodipine, calcium, Nexium, famotidine, furosemide, lisinopril, potassium, and magnesium. She also takes reactive magnesium for leg cramps, as advised by her chiropractor, Dr. Gann. 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 She reports that she is no longer using inhalers such as Incruse Ellipta or fluticasone. The Jenni is currently receiving wound care from Bita Murphy and reports significant improvement. She previously received care from another provider but discontinued due to painful debridement procedures. She also has a history of a hand injury from a jewel hole cornerer accident, which required five surgeries. She reports that her hand was initially recommended for amputation, but she sought alternative treatment. She has a history of a lesser toe amputation following an accident. She also has a history of osteopenia and has previously taken Fosamax for many years. She reports that she was advised to discontinue the medication. She reports that she is in charge of all household activities, including grocery shopping, cooking, housework, and managing finances. 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 She engages in moderate to strenuous exercise, such as brisk walking, for approximately 20-30 minutes every day. She reports eating healthy foods, including fruits, vegetables, whole grains, and fiber-rich foods, every day. She denies alcohol consumption and smoking. She reports no concerns with balance, hearing, or vision, although she wears hearing aids and bifocals for reading. She has her own teeth and a partial denture due to a previous fall that resulted in broken teeth. She reports that her home is safe, with grab bars in the bathroom, handles on all stairwells, and adequate lighting, including night lighting. She always wears a seatbelt when driving. She denies feelings of anxiety, stress, anger, irritability, loneliness, or thoughts of self-harm. She reports occasional anger towards her for not taking care of his personal health. She rates her overall health as very good, although she notes that it is not as good as before she broke her back. She reports that her sister, who is four years younger, has had multiple falls and mini-strokes and is angry because the Jenni is getting around much better. SOCIAL HISTORY[1] Past medical history, appointments, medications, allergies reviewed. Pertinent Lab/Diagnostic Studies are reviewed and discussed today Current Outpatient Medications: naproxen (NAPROSYN) 500 mg tablet esomeprazole magnesium (NEXIUM ORAL) furosemide (LASIX) 20 mg table (more content not included)... [facility] 05-23-2025 Note HNO ID: [id number] Author: AYAN RUBY RN Service: ? Author Type: Registered Nurse Type: Progress Notes Filed: 05/23/2025 12:09 Note Text: Value Based Care Coordination Chart Review Provider Action / FYI: Unable to Reach Upon review of patient chart, the patient is excluded from Chronic Disease Management Patient is not a candidate for CDM at this time and placed in the following status: Unable to reach Action taken: No action needed . Ayan Ruby RN May 23, 2025 12:08 PM [facility] 05-23-2025 Note Patient Outreach (AM [facility]) JENNI STRICKLAND V ([id number]) 1940 F Date Time Provider Department 05/23/25 AYNA RUBY [facility] During your visit today, we recorded the following information about you: Ayan Ruby RN 05/23/2025 12:09 PM Signed Value Based Care Coordination Chart Review Provider Action / FYI: Unable to Reach Upon review of patient chart, the patient is excluded from Chronic Disease Management Patient is not a candidate for CDM at this time and placed in the following status: Unable to reach Action taken: No action needed . Ayan Ruby RN May 23, 2025 12:08 PM Allergies As of Date: 05/23/2025 Noted Allergy Reaction PENICILLINS 06/06/2005 10 - Anaphylaxis ROBITUSSIN A-C (CODEINE-GUAIFENES*06/06/2005 10 - Anaphylaxis WASPS 03/21/2014 7 - Swelling Comments: swelling at sting site ELASTIC 06/07/2005 2 - Rash GLOVES, LATEX 06/14/2006 2 - Rash Comments: blisters HCTZ (THIAZIDES) 10/09/2015 5 - Intolerance Comments: Pins and needles sensation SULFA (SULFONAMIDE ANTIBIOTICS) 06/06/2005 5 - Intolerance ZOCOR (SIMVASTATIN) 06/19/2010 17 - Myalgia Comments: muscle ache Date Reviewed: 02/03/2025 Reviewed by: Jasmina Weeks RN - Fully Assessed Reason for Visit: Care Coordination [3490] Cmt: JESSICA chart review Prescriptions as of 05/23/2025 - naproxen (NAPROSYN) 500 mg tablet Take 1 tablet by mouth two times a day as needed for pain (for pain/inflammation). Take with food. - esomeprazole magnesium (NEXIUM ORAL) Take by mouth as needed. - furosemide (LASIX) 20 mg tablet Take 1 tablet by mouth once daily. - lisinopril (ZESTRIL) 20 mg tablet Take 1 tablet by mouth every afternoon. - amLODIPine (NORVASC) 2.5 mg tablet Take 1 tablet by mouth once daily. - omeprazole (PRILOSEC) 20 mg capsule Take 1 capsule by mouth daily before breakfast. 1/2 hr before meal. - estradiol (ESTRACE) 0.01 % (0.1 mg/gram) vaginal cream Use 1 g vaginally one time a week. - umeclidinium (INCRUSE ELLIPTA) 62.5 mcg/actuation inhaler Inhale 1 Puff as instructed once daily. - polyethylene glycol 3350 (MIRALAX ORAL) Take 17 g by mouth as needed (constipation). - Lactobacillus acidophilus (FLORAJEN ACIDOPHILUS) 20 billion cell cap Take 460 mg by mouth once daily. - famotidine (PEPCID) 20 mg tablet Take 1 tablet by mouth at bedtime as needed. - cyanocobalamin (VITAMIN B-12) 1,000 mcg tab Take 1 tablet by mouth once daily. - fluticasone (FLONASE) 50 mcg/actuation nasal spray Use 2 Sprays in each nostril once daily. - calcium carbonate (ign1558)(TUMS 500 MG CHEWABLE TAB) Take 1,000 mg by mouth two times a day as needed (GERD). - POTASSIUM GLUCONATE 595 MG (99 MG) TAB Take 595 mg by mouth once daily. - MAGNESIUM 250 MG TAB Take 250 mg by mouth once daily. - calcium carbonate/vitamin d3(CALCIUM 600 WITH VITAMIN D3 600 MG (1,500)-200 UNIT TAB) Take 1 tablet by mouth once daily. Problem List As Of Date 05/23/2025 Noted Resolved Esophagitis, unspecified [K20.90] 12/09/2018 Acute gastritis [535.0] 12/09/2018 Diverticulitis [K57.92] Disorder of bone and cartilage, unspecified [M8* 12/09/2018 DIAPHRAGMATIC HERNIA [K44.9] FAMILY HX GI MALIGNANCY [Z80.0] 08/22/2008 Urticaria [L50.9] 02/01/2010 Dyslipidemia (high LDL; low HDL) [E78.5] 02/01/2010 Closed fracture of metatarsal bone(s) [S92.309A]03/12/2011 12/09/2018 Umbilical hernia without mention of obstruction*06/29/2012 Cramp of both lower extremities [R25.2] 04/03/2015 Leg cramps [R25.2] 04/03/2015 12/09/2018 Tingling in extremities [R20.2] 04/03/2015 12/09/2018 COPD (chronic obstructive pulmonary disease) (H*04/03/2015 Essential hypertension [I10] 11/13/2015 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*12/18/2020 H/O amputation of lesser toe, right (HCC) [Z89.*2022 Age-related osteoporosis with current pathologi*2025 Encounter Status:Closed by AYAN RUBY on 05/23/25 [facility] 05-13-2025 Note HNO ID: [id number] Author: OBNITA CANDELARIA RT(R) Service: ? Author Type: Technologist Type: Progress Notes Filed: 05/13/2025 15:28 Note Text: Radiology Service Progress Note PATIENT NAME: Jenni Strickland DATE OF SERVICE: May 13, 2025 TIME: 3:02 PM PATIENT IDENTITY VERIFICATION COMPLETED USING TWO (2) IDENTIFIERS: Name and Date of confirmed by patient verbally. FALL SCREENING: Has the patient had 2 falls in the last year or 1 fall with injury or currently using an Ambulatory Assistive Device (Walker, Cane, Wheelchair, Crutches, etc.)? No PATIENT GENDER DATA: Assigned female at . status: : No status: NO. PATIENT RELEVANT IMPLANT DATA REVIEWED: Not Applicable PATIENT PRESENTS WITH AN IMPLANTABLE OR ATTACHED PHOTOLETTERING 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: No RADIOLOGY DEPARTMENT: Bone Density PERIPHERAL IV DATA: Not applicable SIGNED BY: RT Ghazala(R) May 13, 2025 3:02 PM [facility] 05-12-2025 Note HNO ID: [id number] Author: ADRIANNE HICKEY MA Service: ? Author Type: Ballast Inspector Type: Progress Notes Filed: 05/12/2025 08:36 Note Text: POPULATION HEALTH NAVIGATION OUTREACH Action/FYI Contacted patient to schedule HCC care gaps and health maintenance. 1st attempt: Left message with my direct number Upcoming appointment notes updated to include HCC gap closure. Topic Due (Y or N) Comments Annual Wellness Exam Yes Due 07/12/2025 PCP Follow up No Colorectal Cancer Screening No A1C No HTN/Controlling BP Yes HCC Yes Flu Vaccine Yes Updated appointment notes Yes Reason for Outreach Care Gap/HCC or Scheduling Wellness Visits Care Gaps due: Medicare Annual Wellness Visit Controlling Blood Pressure Flu Vaccine Patient Contacted: Unable or unnecessary to reach patient: Left message HCC related Updated appointment notes Navigation Signature: Adrianne Hickey MA May 12, 2025 8:35 AM [facility] 05-12-2025 Note Patient Outreach (NE TNAV) JENNI STRICKLAND V ([id number]) 1940 F Date Time Provider Department 05/12/25 ADRIANNE HICKEY [facility] During your visit today, we recorded the following information about you: Adrianne Hickey MA 05/12/2025 8:36 AM Signed POPULATION HEALTH NAVIGATION OUTREACH Action/FYI Contacted patient to schedule HCC care gaps and health maintenance. 1st attempt: Left message with my direct number Upcoming appointment notes updated to include HCC gap closure. Topic Due (Y or N) Comments Annual Wellness Exam Yes Due 07/12/2025 PCP Follow up No Colorectal Cancer Screening No A1C No HTN/Controlling BP Yes HCC Yes Flu Vaccine Yes Updated appointment notes Yes Reason for Outreach Care Gap/HCC or Scheduling Wellness Visits Care Gaps due: Medicare Annual Wellness Visit Controlling Blood Pressure Flu Vaccine Patient Contacted: Unable or unnecessary to reach patient: Left message HCC related Updated appointment notes Navigation Signature: Adrianne Hickey MA May 12, 2025 8:35 AM Allergies As of Date: 05/12/2025 Noted Allergy Reaction PENICILLINS 06/06/2005 10 - Anaphylaxis ROBITUSSIN A-C (CODEINE-GUAIFENES*06/06/2005 10 - Anaphylaxis WASPS 03/21/2014 7 - Swelling Comments: swelling at sting site ELASTIC 06/07/2005 2 - Rash GLOVES, LATEX 06/14/2006 2 - Rash Comments: blisters HCTZ (THIAZIDES) 10/09/2015 5 - Intolerance Comments: Pins and needles sensation SULFA (SULFONAMIDE ANTIBIOTICS) 06/06/2005 5 - Intolerance ZOCOR (SIMVASTATIN) 06/19/2010 17 - Myalgia Comments: muscle ache Date Reviewed: 02/03/2025 Reviewed by: Jasmina Weeks RN - Fully Assessed Reason for Visit: Population Health Navigation Outreach [3910] Cmt: Pablito/Workbench/ACO Prescriptions as of 05/12/2025 - naproxen (NAPROSYN) 500 mg tablet Take 1 tablet by mouth two times a day as needed for pain (for pain/inflammation). Take with food. - esomeprazole magnesium (NEXIUM ORAL) Take by mouth as needed. - furosemide (LASIX) 20 mg tablet Take 1 tablet by mouth once daily. - lisinopril (ZESTRIL) 20 mg tablet Take 1 tablet by mouth every afternoon. - amLODIPine (NORVASC) 2.5 mg tablet Take 1 tablet by mouth once daily. - omeprazole (PRILOSEC) 20 mg capsule Take 1 capsule by mouth daily before breakfast. 1/2 hr before meal. - estradiol (ESTRACE) 0.01 % (0.1 mg/gram) vaginal cream Use 1 g vaginally one time a week. - umeclidinium (INCRUSE ELLIPTA) 62.5 mcg/actuation inhaler Inhale 1 Puff as instructed once daily. - polyethylene glycol 3350 (MIRALAX ORAL) Take 17 g by mouth as needed (constipation). - Lactobacillus acidophilus (FLORAJEN ACIDOPHILUS) 20 billion cell cap Take 460 mg by mouth once daily. - famotidine (PEPCID) 20 mg tablet Take 1 tablet by mouth at bedtime as needed. - cyanocobalamin (VITAMIN B-12) 1,000 mcg tab Take 1 tablet by mouth once daily. - fluticasone (FLONASE) 50 mcg/actuation nasal spray Use 2 Sprays in each nostril once daily. - calcium carbonate ([id number])(TUMS 500 MG CHEWABLE TAB) Take 1,000 mg by mouth two times a day as needed (GERD). - POTASSIUM GLUCONATE 595 MG (99 MG) TAB Take 595 mg by mouth once daily. - MAGNESIUM 250 MG TAB Take 250 mg by mouth once daily. - calcium carbonate/vitamin d3(CALCIUM 600 WITH VITAMIN D3 600 MG (1,500)-200 UNIT TAB) Take 1 tablet by mouth once daily. Problem List As Of Date 05/12/2025 Noted Resolved Esophagitis, unspecified [K20.90] 12/09/2018 Acute gastritis [535.0] 12/09/2018 Diverticulitis [K57.92] Disorder of bone and cartilage, unspecified [M8* 12/09/2018 DIAPHRAGMATIC HERNIA [K44.9] FAMILY HX GI MALIGNANCY [Z80.0] 08/22/2008 Urticaria [L50.9] 02/01/2010 Dyslipidemia (high LDL; low HDL) [E78.5] 02/01/2010 Closed fracture of metatarsal bone(s) [S92.309A]03/12/2011 12/09/2018 Umbilical hernia without mention of obstruction*06/29/2012 Cramp of both lower extremities [R25.2] 04/03/2015 Leg cramps [R25.2] 04/03/2015 12/09/2018 Tingling in extremities [R20.2] 04/03/2015 12/09/2018 COPD (chronic obstructive pulmonary disease) (H*04/03/2015 Essential hypertension [I10] 11/13/2015 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*12/18/2020 H/O amputation of lesser toe, right (HCC) [Z89.*2022 Age-related osteoporosis with current pathologi*2025 Encounter Status:Closed by ADRIANNE HICKEY on 05/12/25 [facility] 04-12-2025 Note HNO ID: [id number] Author: LAVERNE DUBOSE RN Service: ? Author Type: Registered Nurse Type: Progress Notes Filed: 04/12/2025 13:17 Note Text: Value Based Care Coordination Chart Review Provider Action / FYI: Not hu Upon review of patient chart, the patient is excluded from Chronic Disease Management Patient is not a candidate for CDM at this time and placed in the following status: Deferred Action taken: No action needed . Laverne Dubose RN April 12, 2025 1:17 PM [facility] 04-12-2025 History of Present illness Narrative Value Based Care Coordination Chart Review Provider Action / FYI: Not hu Upon review of patient chart, the patient is excluded from Chronic Disease Management Patient is not a candidate for CDM at this time and placed in the following status: Deferred Action taken: No action needed . Laverne Dubose RN April 12, 2025 1:17 PM documented in this encounter [facility] 04-12-2025 Note Patient Outreach (AM [facility]) JENNI STRICKLAND V ([id number]) 1940 F Date Time Provider Department 04/12/25 LAVERNE DUBOSE [facility] [place] visit today, we recorded the following information about you: Laverne Dubose RN 04/12/2025 1:17 PM Signed Value Based Care Coordination Chart Review Provider Action / FYI: Not hu Upon review of patient chart, the patient is excluded from Chronic Disease Management Patient is not a candidate for CDM at this time and placed in the following status: Deferred Action taken: No action needed . Laverne Dubose RN April 12, 2025 1:17 PM Allergies As of Date: 04/12/2025 Noted Allergy Reaction PENICILLINS 06/06/2005 10 - Anaphylaxis ROBITUSSIN A-C (CODEINE-GUAIFENES*06/06/2005 10 - Anaphylaxis WASPS 03/21/2014 7 - Swelling Comments: swelling at sting site ELASTIC 06/07/2005 2 - Rash GLOVES, LATEX 06/14/2006 2 - Rash Comments: blisters HCTZ (THIAZIDES) 10/09/2015 5 - Intolerance Comments: Pins and needles sensation SULFA (SULFONAMIDE ANTIBIOTICS) 06/06/2005 5 - Intolerance ZOCOR (SIMVASTATIN) 06/19/2010 17 - Myalgia Comments: muscle ache Date Reviewed: 02/03/2025 Reviewed by: Jasmina Weeks RN - Fully Assessed 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 Take with food. - esomeprazole magnesium (NEXIUM ORAL) Take by mouth as needed. - furosemide (LASIX) 20 mg tablet Take 1 tablet by mouth once daily. - lisinopril (ZESTRIL) 20 mg tablet Take 1 tablet by mouth every afternoon. - amLODIPine (NORVASC) 2.5 mg tablet Take 1 tablet by mouth once daily. - omeprazole (PRILOSEC) 20 mg capsule Take 1 capsule by mouth daily before breakfast. 1/2 hr before meal. - estradiol (ESTRACE) 0.01 % (0.1 mg/gram) vaginal cream Use 1 g vaginally one time a week. - umeclidinium (INCRUSE ELLIPTA) 62.5 mcg/actuation inhaler Inhale 1 Puff as instructed once daily. - polyethylene glycol 3350 (MIRALAX ORAL) Take 17 g by mouth as needed (constipation). - Lactobacillus acidophilus (FLORAJEN ACIDOPHILUS) 20 billion cell cap Take 460 mg by mouth once daily. - famotidine (PEPCID) 20 mg tablet Take 1 tablet by mouth at bedtime as needed. - cyanocobalamin (VITAMIN B-12) 1,000 mcg tab Take 1 tablet by mouth once daily. - fluticasone (FLONASE) 50 mcg/actuation nasal spray Use 2 Sprays in each nostril once daily. - calcium carbonate ([id number])(TUMS 500 MG CHEWABLE TAB) Take 1,000 mg by mouth two times a day as needed (GERD). - POTASSIUM GLUCONATE 595 MG (99 MG) TAB Take 595 mg by mouth once daily. - MAGNESIUM 250 MG TAB Take 250 mg by mouth once daily. - calcium carbonate/vitamin d3(CALCIUM 600 WITH VITAMIN D3 600 MG (1,500)-200 UNIT TAB) Take 1 tablet by mouth once daily. Problem List As Of Date 04/12/2025 Noted Resolved Esophagitis, unspecified [K20.90] 12/09/2018 Acute gastritis [535.0] 12/09/2018 Diverticulitis [K57.92] Disorder of bone and cartilage, unspecified [M8* 12/09/2018 DIAPHRAGMATIC HERNIA [K44.9] FAMILY HX GI MALIGNANCY [Z80.0] 08/22/2008 Urticaria [L50.9] 02/01/2010 Dyslipidemia (high LDL; low HDL) [E78.5] 02/01/2010 Closed fracture of metatarsal bone(s) [S92.309A]03/12/2011 12/09/2018 Umbilical hernia without mention of obstruction*06/29/2012 Cramp of both lower extremities [R25.2] 04/03/2015 Leg cramps [R25.2] 04/03/2015 12/09/2018 Tingling in extremities [R20.2] 04/03/2015 12/09/2018 COPD (chronic obstructive pulmonary disease) (H*04/03/2015 Essential hypertension [I10] 11/13/2015 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*12/18/2020 H/O amputation of lesser toe, right (HCC) [Z89.*2022 Age-related osteoporosis with current pathologi*2025 Encounter Status:Closed by LAVERNE DUBOSE RN on 04/12/25 [facility] 03-06-2025 History and physi maria esther note Note Date/Time March 06, 2025 4:37pm [facility] [address] [place] [address] H&P Exam - Wound Care 03/06/25 1628 MR#: [id number] Acct: [id number] Name: JENNI STRICKLAND Rep #:[id number] 2 : 1940 85 From: Frankie Harper PCP: Dr. Da Castro MD Status:REG R CR Location: History of Present Illness Date of Service: 03/01/25 Chief Complaint: Wound of the left distal lateral calf History of Wound: This is an 85-year-old female who presented with a traumatic wound on the distal left lateral calf. The trauma occurred in September, and thetraumatic wound failed to heal appropriately. The patient had been treated withoral doses of cephalexin and doxycycline by her primary care physician. She hadbeen using Dreft soaks topically on a daily basis. 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 She claims to ambulate liberally. She denies a history of thrombophlebitis. She denies a history of significant lower extremity swelling. The patient does not smoke. She is not diabetic. 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 classification Home Medications ?Medication ?Instructions ?Recorded ?Last Taken ?Type furosemide 20 mg tablet 20 mg PO DAILY PRN PRN leg 0 11/29/20 01/10/25 08:00 Rx swelling ##0 20 mg esomeprazole magnesium 40 mg 40 mg PO QAM #90 caps 08/1701/10/25 08:00 Rx capsule,delayed release 40 mg amlodipine 2.5 mg tablet 2.5 mg PO DAILY 01/10/25 08:00 History 2.5 mg calcium carbonate (Oyster [place] 500 mg PO DAILY 01/10/25 08:00 History Calcium) 500 mg lisinopril 20 mg tablet 20 mg PO DAILY 01/10/2512/23 08:00 History 20 mg lysine 500 mg tablet (L-Lysine) 500 mg PO DAILY 01/10/25 08:00 History 500 mg oxycodone 5 mg tablet 5 mg PO Q4H PRN PRN Pain Sco re 01/10/25 Unknown Rx 4-10 4 days #15 tabs vit C 250 mg-vit E 90 mg-zinc 40 1 tab PO BID eye heal th 01/10/25 01/10/25 08:00 History mg-copper 1 [id number] 1 TAB capsule (PreserVision AREDS-2) zinc acetate 50 mg (zinc) capsule 50 mg PO DAILY 01/1001/10/25 08:00 History (Galzin) 50 mg naproxen 500 mg tablet 500 mg PO BID PRN PRN pain 0 02/09/25 Unknown History oxycodone 5 mg capsule 5 mg PO Q6H PRN PRN pain Unknown History levofloxacin 500 mg tablet 500 mg PO DAILY Wound Infec tion 02/15/25 Unknown Rx #10 tabs Allergy/AdvReac Type Severity Reaction Status Date / Time Latex, Natural Rubber Allergy Mild Verified 02/09/25 13:43 simvastatin (From Zocor) Allergy Mild Verified 02/09/25 13:43 guaifenesin (From Robitussin) Allergy Unknown Verified 02/09/25 13:43 Penicillins Allergy Anaphylaxis Verified 02/09/25 13:43 Sulfa (Sulfonamide Allergy Unknown Verified 02/09/25 13:43 Antibiotics) Family History Mother Colon cancer Father Colon cancer Sister Breast cancer Diabetes CVA (cerebral vascular accident) Cervical cancer Brother Heart disease Daughter COPD (chronic obstructive pulmonary disease) Son Diabetes Surgical History History of cataract extraction History of amputation of right great toe History of appendectomy history of left arm surgery history of hand reconstruction Social History Smoking Status: Never smoker Physical Exam Const alert, oriented x3, no apparent distress, average body habitus and well nourished Constitutional Narrative: The patient's BMI is 25.1. General Appearance: cooperative, comfortable, well kempt and well developed Orientation / Consciousness: awake, oriented to person, oriented to place and oriented to time Exam Limitations: no limitations HEENT normocephalic and head/scalp atraumatic Head and Scalp: normal to inspection, normocephalic and atraumatic Face and Sinus: normal facial exam Nose: external nose normal External Ear: external ears normal Eyes EOMs intact bilaterally General Eye: normal appearance of both eyes Resp normal respiratory effort, normal air movement, no retractions and no use of accessory muscles Effort and Inspection: able to speak in complete sentences Skin Wound Narrative: A wound is noted on the patient's distal left lateral calf. The base of the wound demonstrates a moderate amount of slough, in addition to bioburden. The areas of pink, healthy granulation tissue appear to be increasing. Dimensions are documented elsewhere. The wound is slightly smaller than noted the previousweek. Wound margins are well beveled. There is a rim of faint erythema peripherally. The ulceration extends through all layers of the dermis and into the subcutaneous tissues. Neuro oriented x3, CN's II-XII intact bilaterally, moves all extremities, no focal motor deficits and no sensory deficits noted Sensorium / Orientation: awake, alert, oriented to person, oriented to place andoriented to time Speech: speech normal Psych Appearance: grossly normal and appropriate Attitude: calm Activity / Motor Behavior: appropriate eye contact Speech: normal speech Mood & Affect: euthymic mood Thought Process: normal thought process Thought Content: normal thought content Attention / Concentration: attention grossly intact Debridement Note Debridement Note Wound debrided: Distal left lateral calf ulceration Laterality: Left Type of Debridement: Excisional debridement Anesthesia Used: 5% Lidocaine Gel and Cetacaine Depth: Down to and including healthy tissue and in the subcutaneous layer Percentage of wound debrided: 100 Instrument Used: 5mm curette Tissue Removed: Bioburden and slough Severity: Fat Layer Exposed Amount of bleeding with debridement: Mild Bleeding Controlled with: Compression and gauze Patient tolerated procedure: Patient tolerated procedure well Post-Debridement Measurements and Additional Note: Post-Debridement Measurements/Treatment - Nurse 1 - General Ulcer Assessment Start: 02/22/25 08:07 Freq: Status: Active Protocol: INGRIS Activity Type Activity Date Activity User E-sign Co-sign Detail Recorded Client Recorded Date Recorded By Document 02/22/25 08:07 [facility] [id number] 02/22/25 08:10 [facility] Document 03/01/25 08:03 [facility] [id number] 03/01/25 08:07 CHE[facility] 02/22/25 03/01/25 08:07 08:03 - Today's Visit Information Type of service Follow-up Visit 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 (Physician/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 ) ) Arrival Mode Ambulatory Ambulatory Transfer Assistance None None Patient Identification Verified (Name & Yes Yes ) Patient Requires Transmission-Based No No Precautions Vital Signs Temperature (97.8 F-99.1 F) 98.4 F 98.1 F Temperature Source Temporal Temporal Pulse Rate (60-100) 71 71 Pulse Location Monitor Monitor Respiratory Rate (12-18) 16 16 Respiratory rate source Observation Observation Oxygen Delivery Method Room Air Room Air Blood Pressure (90/60-120/80) 158/70 H 149/76 H Blood Pressure Mean 99 100 Source Monitor Monitor Position Sitting Sitting Blood Pressure Location Right Arm Left Arm History Since Last Visit- (Skip if this is Patient's initial visit) Have you changed medications since your No No last visit? Any new allergies or adverse reactions No No Had a fall/change in ADL's that may No No increase risk of falls Signs or symptoms of abuse and/or No No neglect since last visit Have you been in the hospital since your No No last visit? Has dressing in place as prescribed Yes Yes Has compression in place as prescribed Yes N/A Has offloadiing in place as prescribed N/A N/A Experienced any changes in pain level or No No management Left Footwear Regular Shoe Regular Shoe Right Footwear Regular Shoe Regular Shoe Pain Scale: 0-10 Numeric Is Patient Pain Free? Yes Yes - Nurse 1 - General Ulcer Measurement Start: 02/22/25 08:07 Freq: Status: Active Protocol: Activity Type Activity Date Activity User E-sign Co-sign Detail Recorded Client Recorded Date Recorded By Document 02/22/25 08:07 [facility] [id number] 02/22/25 08:10 [facility] Document 03/01/25 08:03 [facility] [id number] 03/01/25 08:07 [facility] 02/22/25 03/01/25 08:07 08:03 Wound Center Nurse 1 #1 LT LAT LE -Combined with other wound No No -Current Size (cm) - Length 3.2 3.4 -Current Size (cm) - Width 2 1.8 -Current Size (cm) - Depth 0.1 0.1 -Total Square Cm 6.4 6.12 -Date of Last Picture (Recall this 02/22/25 03/01/25 field) -Photo Taken Yes Yes -Epithelialization Small 1-33% -Tunneling No No -Undermining/Tunneling No No -Circular Undermining No No -Exudate Amt Medium Medium -Exudate Type Serosanguineous Serous -Wound Margin Flat & Intact Flat & Intact -Granulation Amt Medium (34-66%) Small (1-33%) -Granulation Quality [place] Red -Slough/Fibrin Yes Yes -Necrosis Amt Medium (34-66%) Large (67-100%) -Necrotic Tissue Type Adherent Slough Adherent Slough -Texture (Terese-wound Skin Appearance) Assessed Assessed, Scarring -Moisture (Terese-wound Skin Appearance) Assessed Assessed -Color (Terese-wound Skin Appearance) Assessed Assessed -Temperature (Terese-wound Skin No Abnormality No Abnormality Appearance) (Pt Warm) (Pt Warm) -Tenderness on Palpation (Terese-wound No No Skin Appearance) -Ulcer Cleansing Rinsed/ Rinsed/ Irrigated with Irrigated with Saline Saline -Foul Odor after Cleansing No No -Anesthetic Used 5% Lidocaine 5% Lidocaine Gel Gel WC - Nurse 2 - General Ulcer CM Notes Start: 02/22/25 08:07 Freq: Status: Active Protocol: Activity Type Activity Date Activity User E-sign Co-sign Detail Recorded Client Recorded Date Recorded By Document 02/22/25 08:18 DS [id number] 02/22/25 08:21 DS Document 03/01/25 08:17 DS [id number] 03/01/25 08:20 DS 02/22/25 03/01/25 08:18 08:17 Wound Center Nurse 2 #1 LT LAT LE -Time 08:18 08:17 -Correct Patient Yes Yes -Correct Side, Site, Position Yes Yes -Correct Procedure Yes Yes -Procedure Performed Yes Yes -Type of Procedure Debridement Debridement -Clinical Debridement Subcutaneous Subcutaneous -Tissue Removed Subcutaneous Subcutaneous -Post Debridement (cm) - Length 3.4 3.5 -Post Debridement (cm) - Width 2.0 1.9 -Post Debridement (cm) - Depth 0.2 0.2 -Total Square (Post) (cm) 6.80 6.65 -Area of Debridement (cm) - Length 3.4 3.5 -Area of Debridement (cm) - Width 2.0 1.9 -Total Square (Area) (cm) 6.80 6.65 -Tunneling No No -Undermining/Tunneling No No -Circular Undermining No No -Wound/Ulcer Outcome Not Healed Not Healed -Ulcer Cleansing gauze gauze -Foul Odor after Cleansing No No -Bioengineered Tissue No No -Bleeding Controlled with Pressure Pressure -Treatment Response Procedure Procedure Tolerated Well Tolerated Well -Debridement - Subq, 1st 20sq cm Yes Yes Pain Scale: 0-10 Numeric Is Patient Pain Free? No No left lat leg -Description Sharp,Throbbing Sharp,Throbbing -Intensity 6 8 -Duration (hours) Chronic Chronic -Pain Behavior Moaning, Guarding, Withdrawal from Touch -Pain Aggravating Factors Debridement Debridement -Alleviating Factors/Interventions Will continue Will continue to monitor, to monitor Emotional Support -Comments cetacaine spray cetecaine used used. - Nurse 3 - General Ulcer D/C NN Start: 02/22/25 08:07 Freq: Status: Active Protocol: Activity Type Activity Date Activity User E-sign Co-sign Detail Recorded Client Recorded Date Recorded By Document 02/22/25 08:29 [facility] [id number] 02/22/25 08:30 [facility] Document 03/01/25 08:31 [id number] 03/01/25 08:34 02/22/25 03/01/25 08:29 08:31 Wound Care Center Nurse 3 #1 LT LAT LE -Ulcer Cleansing Rinsed/ Irrigated with Saline -Foul Odor after Cleansing No -Other Dressing santyl, pt santyl moistened gauze -Primary Dressing Covered/Secured with Dry Gauze & Dry Gauze & Roll Gauze, Roll Gauze, Secured with Secured with Tape Tape -Other Covering abd Treatment Response Procedure Tolerated Well Pain Scale: 0-10 Numeric Is Patient Pain Free? Yes Yes - Visit Discharge Discharge Condition Stable Stable Ambulatory Status Ambulatory Ambulatory Transportation Private Auto Private Auto Medication Reconcilliation completed & No provided to patient/care provider Clinical Summary of Care Provided Yes Charges/Coding Procedures Integumentary [id number]: [id number] Saba subq tissue 20 sq cm/< Assessment/Plan Assessment/Plan (1) Non-pressure chronic ulcer of left lower leg with fat layer exposed: CODE(S): L97.922 - Non-pressure chronic ulcer of unspecified part of left lower leg with fat layer exposed (2) Lumbar degenerative disc disease: CODE(S): M51.369 - Other intervertebral disc degeneration, lumbar region without mention of lumbar back pain or lower extremity pain (3) Diverticulosis: CODE(S): K57.90 - Diverticulosis of intestine, part unspecified, without perforation or abscess without bleeding (4) Hiatal hernia with GERD without esophagitis: CODE(S): K44.9 - Diaphragmatic hernia without obstruction or gangrene; K21.9 - Gastro-esophageal reflux disease without esophagitis (5) History of cataract extraction: CODE(S): Z98.49 - Cataract extraction status, unspecified eye (6) History of amputation of right great toe: CODE(S): Z98.890 - Other specified postprocedural states; Z89.411 - Acquired absence of right great toe (7) History of appendectomy: CODE(S): Z98.890 - Other specified postprocedural states; Z90.49 - Acquired absence of other specified parts of digestive tract (8) history of left arm surgery: (9) history of hand reconstruction: (10) HUMPHRIES (dyspnea on exertion): CODE(S): R06.09 - Other forms of dyspnea (11) Stage 1 mild COPD by GOLD classification: CODE(S): J44.9 - Chronic obstructive pulmonary disease, unspecified (12) Hypertension: CODE(S): I10 - Essential (primary) hypertension (13) Vertigo: CODE(S): R42 - Dizziness and giddiness (14) Psoriasis: CODE(S): L40.9 - Psoriasis, unspecified PLAN: Plan This is an 85-year-old functional and active female who presented with a chronic, nonhealing wound on the distal portion of her left lateral calf. The wound resulted from trauma which occurred several months ago. The patient had been previously treated with several courses of oral antibiotics, including cephalexin and doxycycline. She had recently been using Dreft soaks topically on a daily basis. An excisional debridement has been performed today. Swab cultures were obtained on February 11, 2025, the results of which indicated the growth of Staphylococcus aureus and Proteus mirabilis. The patient was placed on Levaquin 500 milligrams p.o. daily for a total of 10 days, which has been completed. We are to continue the use of collagenase Santyl topically, which will be applied on a daily basis. The patient has been instructed in appropriate means of application. The patient has been advised to optimize her nutritional intake. She has also been advised to keep her lower extremities elevated as much as possible, and to avoid prolonged idle sitting, in an effort to avoid swelling in her lower extremities. The patient is to return in 1 week for reevaluation. Total time: 25 minutes 03/06/25 1637 <Electronically signed by Frankie Arrington MD> Cosigner Signature (if applicable): CC: ~ Signed [facility] Work Phone: [phone] History and physical note [facility] [address] [place] [address] H&P Exam - Wound Care 03/06/25 1628 MR#: [id number] Acct: [id number] Name: JENNI STRICKLAND Rep #:[id number] 2 : 1940 85 From: Frankie Harper PCP: Dr. Da Castro MD Status:REG R CR Location: History of Present Illness Date of Service: 03/01/25 Chief Complaint: Wound of the left distal lateral calf History of Wound: This is an 85-year-old female who presented with a traumatic wound on the distal left lateral calf. The trauma occurred in September, and thetraumatic wound failed to heal appropriately. The patient had been treated withoral doses of cephalexin and doxycycline by her primary care physician. She hadbeen using Dreft soaks topically on a daily basis. 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 She claims to ambulate liberally. She denies a history of thrombophlebitis. She denies a history of significant lower extremity swelling. The patient does not smoke. She is not diabetic. 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 classification Home Medications ?Medication ?Instructions ?Recorded ?Last Taken ?Type furosemide 20 mg tablet 20 mg PO DAILY PRN PRN leg 0 11/29/20 01/10/25 08:00 Rx swelling ##0 20 mg esomeprazole magnesium 40 mg 40 mg PO QAM #90 caps 08/1701/10/25 08:00 Rx capsule,delayed release 40 mg amlodipine 2.5 mg tablet 2.5 mg PO DAILY 01/10/25 08:00 History 2.5 mg calcium carbonate (Oyster Shell 500 mg PO DAILY 01/10/25 08:00 History Calcium) 500 mg lisinopril 20 mg tablet 20 mg PO DAILY 01/10/2512/23 08:00 History 20 mg lysine 500 mg tablet (L-Lysine) 500 mg PO DAILY 01/10/25 08:00 History 500 mg oxycodone 5 mg tablet 5 mg PO Q4H PRN PRN Pain Sco re 01/10/25 Unknown Rx 4-10 4 days #15 tabs vit C 250 mg-vit E 90 mg-zinc 40 1 tab PO BID eye heal th 01/10/25 01/10/25 08:00 History mg-copper 1 [id number] 1 TAB capsule (PreserVision AREDS-2) zinc acetate 50 mg (zinc) capsule 50 mg PO DAILY 01/1001/10/25 08:00 History (Galzin) 50 mg naproxen 500 mg tablet 500 mg PO BID PRN PRN pain 0 02/09/25 Unknown History oxycodone 5 mg capsule 5 mg PO Q6H PRN PRN pain Unknown History levofloxacin 500 mg tablet 500 mg PO DAILY Wound Infec tion 02/15/25 Unknown Rx #10 tabs Allergy/AdvReac Type Severity Reaction Status Date / Time Latex, Natural Rubber Allergy Mild Verified 02/09/25 13:43 simvastatin (From Zocor) Allergy Mild Verified 02/09/25 13:43 guaifenesin (From Robitussin) Allergy Unknown Verified 02/09/25 13:43 Penicillins Allergy Anaphylaxis Verified 02/09/25 13:43 Sulfa (Sulfonamide Allergy Unknown Verified 02/09/25 13:43 Antibiotics) Family History Mother Colon cancer Father Colon cancer Sister Breast cancer Diabetes CVA (cerebral vascular accident) Cervical cancer Brother Heart disease Daughter COPD (chronic obstructive pulmonary disease) Son Diabetes Surgical History History of cataract extraction History of amputation of right great toe History of appendectomy history of left arm surgery history of hand reconstruction Social History Smoking Status: Never smoker Physical Exam Const alert, oriented x3, no apparent distress, average body habitus and well nourished Constitutional Narrative: The patient's BMI is 25.1. General Appearance: cooperative, comfortable, well kempt and well developed Orientation / Consciousness: awake, oriented to person, oriented to place and oriented to time Exam Limitations: no limitations HEENT normocephalic and head/scalp atraumatic Head and Scalp: normal to inspection, normocephalic and atraumatic Face and Sinus: normal facial exam Nose: external nose normal External Ear: external ears normal Eyes EOMs intact bilaterally General Eye: normal appearance of both eyes Resp normal respiratory effort, normal air movement, no retractions and no use of accessory muscles Effort and Inspection: able to speak in complete sentences Skin Wound Narrative: A wound is noted on the patient's distal left lateral calf. The base of the wound demonstrates a moderate amount of slough, in addition to bioburden. The areas of pink, healthy granulation tissue appear to be increasing. Dimensions are documented elsewhere. The wound is slightly smaller than noted the previousweek. Wound margins are well beveled. There is a rim of faint erythema peripherally. Theulceration extends through all layers of the dermis and into the subcutaneous tissues. Neuro oriented x3, CN's II-XII intact bilaterally, moves all extremities, no focal motor deficits and no sensory deficits noted Sensorium / Orientation: awake, alert, oriented to person, oriented to place andoriented to time Speech: speech normal Psych Appearance: grossly normal and appropriate Attitude: calm Activity / Motor Behavior: appropriate eye contact Speech: normal speech Mood & Affect: euthymic mood Thought Process: normal thought process Thought Content: normal thought content Attention / Concentration: attention grossly intact Debridement Note Debridement Note Wound debrided: Distal left lateral calf ulceration Laterality: Left Type of Debridement: Excisional debridement Anesthesia Used: 5% Lidocaine Gel and Cetacaine Depth: Down to and including healthy tissue and in the subcutaneous layer Percentage of wound debrided: 100 Instrument Used: 5mm curette Tissue Removed: Bioburden and slough Severity: Fat Layer Exposed Amount of bleeding with debridement: Mild Bleeding Controlled with: Compression and gauze Patient tolerated procedure: Patient tolerated procedure well Post-Debridement Measurements and Additional Note: Post-Debridement Measurements/Treatment ELAYNE - Nurse 1 - General Ulcer Assessment Start: 02/22/25 08:07 Freq: Status: Active Protocol: INGRIS Activity Type Activity Date Activity User E-sign Co-sign Detail Recorded Client Recorded Date Recorded By Document 02/22/25 08:07 [employer] 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 ) ) Arrival Mode Ambulatory Ambulatory Transfer Assistance None None Patient Identification Verified (Name & Yes Yes ) Patient Requires Transmission-Based No No Precautions Vital Signs Temperature (97.8 F-99.1 F) 98.4 F 98.1 F Temperature Source Temporal Temporal Pulse Rate (60-100) 71 71 Pulse Location Monitor Monitor Respiratory Rate (12-18) 16 16 Respiratory rate source Observation Observation Oxygen Delivery Method Room Air Room Air Blood Pressure (90/60-120/80) 158/70 H 149/76 H Blood Pressure Mean 99 100 Source Monitor Monitor Position Sitting Sitting Blood Pressure Location Right Arm Left Arm History Since Last Visit- (Skip if this is Patient's initial visit) Have you changed medications since your No No last visit? Any new allergies or adverse reactions No No Had a fall/change in ADL's that may No No increase risk of falls Signs or symptoms of abuse and/or No No neglect since last visit Have you been in the hospital since your No No last visit? Has dressing in place as prescribed Yes Yes Has compression in place as prescribed Yes N/A Has offloadiing in place as prescribed N/A N/A Experienced any changes in pain level or No No management Left Footwear Regular Shoe Regular Shoe Right Footwear Regular Shoe Regular Shoe Pain Scale: 0-10 Numeric Is Patient Pain Free? Yes Yes ELAYNE - Nurse 1 - General Ulcer Measurement Start: 02/22/25 08:07 Freq: Status: Active Protocol: Activity Type Activity Date Activity User E-sign Co-sign Detail Recorded Client Recorded Date Recorded By Document 02/22/25 08:07 BMF [id number] 02/22/25 08:10 BM Document 03/01/25 08:03 BMF [id number] 03/01/25 08:07 BMF 02/22/25 03/01/25 08:07 08:03 Wound Center Nurse 1 #1 LT LAT LE -Combined with other wound No No -Current Size (cm) - Length 3.2 3.4 -Current Size (cm) - Width 2 1.8 -Current Size (cm) - Depth 0.1 0.1 -Total Square Cm 6.4 6.12 -Date of Last Picture (Recall this 02/22/25 03/01/25 field) -Photo Taken Yes Yes -Epithelialization Small 1-33% -Tunneling No No -Undermining/Tunneling No No -Circular Undermining No No -Exudate Amt Medium Medium -Exudate Type Serosanguineous Serous -Wound Margin Flat & Intact Flat & Intact -Granulation Amt Medium (34-66%) Small (1-33%) -Granulation Quality [place] Red -Slough/Fibrin Yes Yes -Necrosis Amt Medium (34-66%) Large (67-100%) -Necrotic Tissue Type Adherent Slough Adherent Slough -Texture (Terese-wound Skin Appearance) Assessed Assessed, Scarring -Moisture (Terese-wound Skin Appearance) Assessed Assessed -Color (Terese-wound Skin Appearance) Assessed Assessed -Temperature (Terese-wound Skin No Abnormality No Abnormality Appearance) (Pt Warm) (Pt Warm) -Tenderness on Palpation (Terese-wound No No Skin Appearance) -Ulcer Cleansing Rinsed/ Rinsed/ Irrigated with Irrigated with Saline Saline -Foul Odor after Cleansing No No -Anesthetic Used 5% Lidocaine 5% Lidocaine Gel Gel WC - Nurse 2 - General Ulcer CM Notes Start: 02/22/25 08:07 Freq: Status: Active Protocol: Activity Type Activity Date Activity User E-sign Co-sign Detail Recorded Client Recorded Date Recorded By Document 02/22/25 08:18 DS [id number] 02/22/25 08:21 DS Document 03/01/25 08:17 DS [id number] 03/01/25 08:20 DS 02/22/25 03/01/25 08:18 08:17 Wound Center Nurse 2 #1 LT LAT LE -Time 08:18 08:17 -Correct Patient Yes Yes -Correct Side, Site, Position Yes Yes -Correct Procedure Yes Yes -Procedure Performed Yes Yes -Type of Procedure Debridement Debridement -Clinical Debridement Subcutaneous Subcutaneous -Tissue Removed Subcutaneous Subcutaneous -Post Debridement (cm) - Length 3.4 3.5 -Post Debridement (cm) - Width 2.0 1.9 -Post Debridement (cm) - Depth 0.2 0.2 -Total Square (Post) (cm) 6.80 6.65 -Area of Debridement (cm) - Length 3.4 3.5 -Area of Debridement (cm) - Width 2.0 1.9 -Total Square (Area) (cm) 6.80 6.65 -Tunneling No No -Undermining/Tunneling No No -Circular Undermining No No -Wound/Ulcer Outcome Not Healed Not Healed -Ulcer Cleansing gauze gauze -Foul Odor after Cleansing No No -Bioengineered Tissue No No -Bleeding Controlled with Pressure Pressure -Treatment Response Procedure Procedure Tolerated Well Tolerated Well -Debridement - Subq, 1st 20sq cm Yes Yes Pain Scale: 0-10 Numeric Is Patient Pain Free? No No left lat leg -Description Sharp,Throbbing Sharp,Throbbing -Intensity 6 8 -Duration (hours) Chronic Chronic -Pain Behavior Moaning, Guarding, Withdrawal from Touch -Pain Aggravating Factors Debridement Debridement -Alleviating Factors/Interventions Will continue Will continue to monitor, to monitor Emotional Support -Comments cetacaine spray cetecaine used used. WC - Nurse 3 - General Ulcer D/C NN Start: 02/22/25 08:07 Freq: Status: Active Protocol: Activity Type Activity Date Activity User E-sign Co-sign Detail Recorded Client Recorded Date Recorded By Document 02/22/25 08:29 BM [id number] 02/22/25 08:30 BMF Document 03/01/25 08:31 KW [id number] 03/01/25 08:34 KW 02/22/25 03/01/25 08:29 08:31 Wound Care Center Nurse 3 #1 LT LAT LE -Ulcer Cleansing Rinsed/ Irrigated with Saline -Foul Odor after Cleansing No -Other Dressing santyl, pt santyl moistened gauze -Primary Dressing Covered/Secured with Dry Gauze & Dry Gauze & Roll Gauze, Roll Gauze, Secured with Secured with Tape Tape -Other Covering abd Treatment Response Procedure Tolerated Well Pain Scale: 0-10 Numeric Is Patient Pain Free? Yes Yes WC - Visit Discharge Discharge Condition Stable Stable Ambulatory Status Ambulatory Ambulatory Transportation Private Auto Private Auto Medication Reconcilliation completed & No provided to patient/care provider Clinical Summary of Care Provided Yes Charges/Coding Procedures Integumentary [id number]: [id number] Saba subq tissue 20 sq cm/< Assessment/Plan Assessment/Plan (1) Non-pressure chronic ulcer of left lower leg with fat layer exposed: CODE(S): L97.922 - Non-pressure chronic ulcer of unspecified part of left lower leg with fat layer exposed (2) Lumbar degenerative disc disease: CODE(S): M51.369 - Other intervertebral disc degeneration, lumbar region without mention of lumbar back pain or lower extremity pain (3) Diverticulosis: CODE(S): K57.90 - Diverticulosis of intestine, part unspecified, without perforation or abscess without bleeding (4) Hiatal hernia with GERD without esophagitis: CODE(S): K44.9 - Diaphragmatic hernia without obstruction or gangrene; K21.9 - Gastro-esophageal reflux disease without esophagitis (5) History of cataract extraction: CODE(S): Z98.49 - Cataract extraction status, unspecified eye (6) History of amputation of right great toe: CODE(S): Z98.890 - Other specified postprocedural states; Z89.411 - Acquired absence of right greattoe (7) History of appendectomy: CODE(S): Z98.890 - Other specified postprocedural states; Z90.49 - Acquired absence of other specified parts of digestive tract (8) history of left arm surgery: (9) history of hand reconstruction: (10) HUMPHRIES (dyspnea on exertion): CODE(S): R06.09 - Other forms of dyspnea (11) Stage 1 mild COPD by GOLD classification: CODE(S): J44.9 - Chronic obstructive pulmonary disease, unspecified (12) Hypertension: CODE(S): I10 - Essential (primary) hypertension (13) Vertigo: CODE(S): R42 - Dizziness and giddiness (14) Psoriasis: CODE(S): L40.9 - Psoriasis, unspecified PLAN: Plan This is an 85-year-old functional and active female who presented with a chronic, nonhealing wound on the distal portion of her left lateral calf. The wound resulted from trauma which occurred several months ago. The patient had been previously treated with several courses of oral antibiotics, including cephalexin and doxycycline. She had recently been using Dreft soaks topically on a daily basis. An excisional debridement has been performed today. Swab cultures were obtained on February 11, 2025, the results of which indicated the growth of Staphylococcus aureus and Proteus mirabilis. The patient was placed on Levaquin 500 milligrams p.o. daily for a total of 10 days, which has been completed.We are to continue the use of collagenase Santyl topically, which will be applied on a daily basis.The patient has been instructed in appropriate means of application. The patient has been advised to optimize her nutritional intake. She has also been advised to keep her lower extremities elevated as much as possible, and to avoid prolonged idle sitting, in an effort to avoid swelling in her lower extremities. The patient is to return in 1 week for reevaluation. Total time: 25 minutes 03/06/25 1637 Cosigner Signature (if applicable): CC: ~ Signed [facility]07-02-2025 History and physical note Author Frankie Arrington [facility] Note Date/Time February 23, 2025 3:59p m [facility] [address] [place] [address] H&P Exam - Wound Care 02/23/25 1508 MR#: [id number] Acct: [id number] Name: JENNI STRICKLAND Rep #:[id number] : 1940 85 From: Frankie Harper PCP: Dr. Da Castro MD Status:REG R CR Location: History of Present Illness Date of Service: 02/22/25 Chief Complaint: Wound of the left distal lateral calf History of Wound: This is an 85-year-old female who presented with a traumatic wound on the distal left lateral calf. The trauma occurred in September, and thetraumatic wound failed to heal appropriately. The patient had been treated withoral doses of cephalexin and doxycycline by her primary care physician. She hadbeen using Dreft soaks topically on a daily basis. 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 She claims to ambulate liberally. She denies a history of thrombophlebitis. She denies a history of significant lower extremity swelling. The patient does not smoke. She is not diabetic. 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 classification Home Medications ?Medication ?Instructions ?Recorded ?Last Taken ?Type furosemide 20 mg tablet 20 mg PO DAILY PRN PRN leg 0 11/29/20 01/10/25 08:00 Rx swelling ##0 20 mg esomeprazole magnesium 40 mg 40 mg PO QAM #90 caps 08/1701/10/25 08:00 Rx capsule,delayed release 40 mg amlodipine 2.5 mg tablet 2.5 mg PO DAILY 01/10/25 08:00 History 2.5 mg calcium carbonate (Oyster Shell 500 mg PO DAILY 01/10/25 08:00 History Calcium) 500 mg lisinopril 20 mg tablet 20 mg PO DAILY 01/10/2512/23 08:00 History 20 mg lysine 500 mg tablet (L-Lysine) 500 mg PO DAILY 01/10/25 08:00 History 500 mg oxycodone 5 mg tablet 5 mg PO Q4H PRN PRN Pain Sco re 01/10/25 Unknown Rx 4-10 4 days #15 tabs vit C 250 mg-vit E 90 mg-zinc 40 1 tab PO BID eye heal th 01/10/25 01/10/25 08:00 History mg-copper 1 [id number]-[id number] 1 TAB capsule (PreserVision AREDS-2) zinc acetate 50 mg (zinc) capsule 50 mg PO DAILY 01/1001/10/25 08:00 History (Galzin) 50 mg naproxen 500 mg tablet 500 mg PO BID PRN PRN pain 0 02/09/25 Unknown History oxycodone 5 mg capsule 5 mg PO Q6H PRN PRN pain Unknown History levofloxacin 500 mg tablet 500 mg PO DAILY Wound Infec tion 02/15/25 Unknown Rx #10 tabs Allergy/AdvReac Type Severity Reaction Status Date / Time Latex, Natural Rubber Allergy Mild Verified 02/09/25 13:43 simvastatin (From Zocor) Allergy Mild Verified 02/09/25 13:43 guaifenesin (From Robitussin) Allergy Unknown Verified 02/09/25 13:43 Penicillins Allergy Anaphylaxis Verified 02/09/25 13:43 Sulfa (Sulfonamide Allergy Unknown Verified 02/09/25 13:43 Antibiotics) Family History Mother Colon cancer Father Colon cancer Sister Breast cancer Diabetes CVA (cerebral vascular accident) Cervical cancer Brother Heart disease Daughter COPD (chronic obstructive pulmonary disease) Son Diabetes Surgical History History of cataract extraction History of amputation of right great toe History of appendectomy history of left arm surgery history of hand reconstruction Social History Smoking Status: Never smoker Physical Exam Const alert, oriented x3, no apparent distress, average body habitus and well nourished Constitutional Narrative: The patient's BMI is 25.1. General Appearance: cooperative, comfortable, well kempt and well developed Orientation / Consciousness: awake, oriented to person, oriented to place and oriented to time Exam Limitations: no limitations HEENT normocephalic and head/scalp atraumatic Head and Scalp: normal to inspection, normocephalic and atraumatic Face and Sinus: normal facial exam Nose: external nose normal External Ear: external ears normal Eyes EOMs intact bilaterally General Eye: normal appearance of both eyes Resp normal respiratory effort, normal air movement, no retractions and no use of accessory muscles Effort and Inspection: able to speak in complete sentences Skin Wound Narrative: An wound is noted on the patient's distal left lateral calf. The base of the wound demonstrates a small amount of yellow, nonviable, and devitalized tissue, in addition to bioburden. The areas of pink, healthy granulation tissue appear to be increasing. Dimensions are documented elsewhere. Wound margins are well beveled. There is a rim of faint erythema peripherally. The ulceration extendsthrough all layers of the dermis and into the subcutaneous tissues. Neuro oriented x3, CN's II-XII intact bilaterally, moves all extremities, no focal motor deficits and no sensory deficits noted Sensorium / Orientation: awake, alert, oriented to person, oriented to place andoriented to time Speech: speech normal Psych Appearance: grossly normal and appropriate Attitude: calm Activity / Motor Behavior: appropriate eye contact Speech: normal speech Mood & Affect: euthymic mood Thought Process: normal thought process Thought Content: normal thought content Attention / Concentration: attention grossly intact Debridement Note Debridement Note Wound debrided: Distal left lateral calf ulceration Laterality: Left Type of Debridement: Excisional debridement Anesthesia Used: 5% Lidocaine Gel and Cetacaine Depth: Down to and including healthy tissue and in the subcutaneous layer Percentage of wound debrided: 100 Instrument Used: 5mm curette Tissue Removed: Bioburden and nonviable tissue Severity: Fat Layer Exposed Amount of bleeding with debridement: Mild Bleeding Controlled with: Compression and gauze Patient tolerated procedure: Patient tolerated procedure well Post-Debridement Measurements and Additional Note: Post-Debridement Measurements/Treatment - Nurse 1 - General Ulcer Assessment Start: 02/22/25 08:07 Freq: Status: Active Protocol: INGRIS Activity Type Activity Date Activity User E-sign Co-sign Detail Recorded Client Recorded Date Recorded By Document 02/22/25 08:07 [facility] [id number] 02/22/25 08:10 [facility] 02/22/25 08:07 - Today's Visit Information Type of service 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 ) Arrival Mode Ambulatory Transfer Assistance None Patient Identification Verified (Name & Yes ) Patient Requires Transmission-Based No Precautions Vital Signs Temperature (97.8 F-99.1 F) 98.4 F Temperature Source Temporal Pulse Rate (60-100) 71 Pulse Location Monitor Respiratory Rate (12-18) 16 Respiratory rate source Observation Oxygen Delivery Method Room Air Blood Pressure (90/60-120/80) 158/70 H Blood Pressure Mean 99 Source Monitor Position Sitting Blood Pressure Location Right Arm History Since Last Visit- (Skip if this is Patient's initial visit) Have you changed medications since your No last visit? Any new allergies or adverse reactions No Had a fall/change in ADL's that may No increase risk of falls Signs or symptoms of abuse and/or No neglect since last visit Have you been in the hospital since your No last visit? Has dressing in place as prescribed Yes Has compression in place as prescribed Yes Has offloadiing in place as prescribed N/A Experienced any changes in pain level or No management Left Footwear Regular Shoe Right Footwear Regular Shoe Pain Scale: 0-10 Numeric Is Patient Pain Free? Yes - Nurse 1 - General Ulcer Measurement Start: 02/22/25 08:07 Freq: Status: Active Protocol: Activity Type Activity Date Activity User E-sign Co-sign Detail Recorded Client Recorded Date Recorded By Document 02/22/25 08:07 [facility] [id number] 02/22/25 08:10 [facility] 02/22/25 08:07 Wound Center Nurse 1 #1 LT LAT LE -Combined with other wound No -Current Size (cm) - Length 3.2 -Current Size (cm) - Width 2 -Current Size (cm) - Depth 0.1 -Total Square Cm 6.4 -Date of Last Picture (Recall this 02/22/25 field) -Photo Taken Yes -Tunneling No -Undermining/Tunneling No -Circular Undermining No -Exudate Amt Medium -Exudate Type Serosanguineous -Wound Margin Flat & Intact -Granulation Amt Medium (34-66%) -Granulation Quality [place] -Slough/Fibrin Yes -Necrosis Amt Medium (34-66%) -Necrotic Tissue Type Adherent Slough -Texture (Terese-wound Skin Appearance) Assessed -Moisture (Terese-wound Skin Appearance) Assessed -Color (Terese-wound Skin Appearance) Assessed -Temperature (Terese-wound Skin No Abnormality Appearance) (Pt Warm) -Tenderness on Palpation (Terese-wound No Skin Appearance) -Ulcer Cleansing Rinsed/ Irrigated with Saline -Foul Odor after Cleansing No -Anesthetic Used 5% Lidocaine Gel ELAYNE - Nurse 2 - General Ulcer CM Notes Start: 02/22/25 08:07 Freq: Status: Active Protocol: Activity Type Activity Date Activity User E-sign Co-sign Detail Recorded Client Recorded Date Recorded By Document 02/22/25 08:18 DS [id number] 02/22/25 08:21 DS 02/22/25 08:18 Wound Center Nurse 2 -Time 08:18 -Correct Patient Yes -Correct Side, Site, Position Yes -Correct Procedure Yes -Procedure Performed Yes -Type of Procedure Debridement -Clinical Debridement Subcutaneous -Tissue Removed Subcutaneous -Post Debridement (cm) - Length 3.4 -Post Debridement (cm) - Width 2.0 -Post Debridement (cm) - Depth 0.2 -Total Square (Post) (cm) 6.80 -Area of Debridement (cm) - Length 3.4 -Area of Debridement (cm) - Width 2.0 -Total Square (Area) (cm) 6.80 -Tunneling No -Undermining/Tunneling No -Circular Undermining No -Wound/Ulcer Outcome Not Healed -Ulcer Cleansing gauze -Foul Odor after Cleansing No -Bioengineered Tissue No -Bleeding Controlled with Pressure -Treatment Response Procedure Tolerated Well -Debridement - Subq, 1st 20sq cm Yes Pain Scale: 0-10 Numeric Is Patient Pain Free? No left lat leg -Description Sharp,Throbbing -Intensity 6 -Duration (hours) Chronic -Pain Aggravating Factors Debridement -Alleviating Factors/Interventions Will continue to monitor, Emotional Support -Comments cetacaine spray used. - Nurse 3 - General Ulcer D/C NN Start: 02/22/25 08:07 Freq: Status: Active Protocol: Activity Type Activity Date Activity User E-sign Co-sign Detail Recorded Client Recorded Date Recorded By Document 02/22/25 08:29 [facility] [id number] 02/22/25 08:30 [facility] 02/22/25 08:29 [facility] Nurse 3 #1 LT LAT LE -Ulcer Cleansing Rinsed/ Irrigated with Saline -Foul Odor after Cleansing No -Other Dressing santyl, moistened gauze -Primary Dressing Covered/Secured with Dry Gauze & Roll Gauze, Secured with Tape -Other Covering abd Treatment Response Procedure Tolerated Well Pain Scale: 0-10 Numeric Is Patient Pain Free? Yes WC - Visit Discharge Discharge Condition Stable Ambulatory Status Ambulatory Transportation Private Auto Charges/Coding Procedures Integumentary 111xxx-113xx: 45782 Saba subq tissue 20 sq cm/< Assessment/Plan Assessment/Plan (1) Non-pressure chronic ulcer of left lower leg with fat layer exposed: CODE(S): L97.922 - Non-pressure chronic ulcer of unspecified part of left lower leg with fat layer exposed (2) Lumbar degenerative disc disease: CODE(S): M51.369 - Other intervertebral disc degeneration, lumbar region without mention of lumbar back pain or lower extremity pain (3) Diverticulosis: CODE(S): K57.90 - Diverticulosis of intestine, part unspecified, without perforation or abscess without bleeding (4) Hiatal hernia with GERD without esophagitis: CODE(S): K44.9 - Diaphragmatic hernia without obstruction or gangrene; K21.9 - Gastro-esophageal reflux disease without esophagitis (5) History of cataract extraction: CODE(S): Z98.49 - Cataract extraction status, unspecified eye (6) History of amputation of right great toe: CODE(S): Z98.890 - Other specified postprocedural states; Z89.411 - Acquired absence of right great toe (7) History of appendectomy: CODE(S): Z98.890 - Other specified postprocedural states; Z90.49 - Acquired absence of other specified parts of digestive tract (8) history of left arm surgery: (9) history of hand reconstruction: (10) HUMPHRIES (dyspnea on exertion): CODE(S): R06.09 - Other forms of dyspnea (11) Stage 1 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 The ulceration resulted from trauma which occurred several months ago. The patient had been previously treated with several courses of oral antibiotics, including cephalexin and doxycycline. She had recently been using Dreft soaks topically on a daily basis. An excisional debridement has been performed today. Swab cultures were obtained on February 11, 2025, the results of which indicated the growth of Staphylococcus aureus and Proteus mirabilis. The patient was placed on Levaquin 500 milligrams p.o. daily for a total of 10 days, which is nearly complete. We are to continue the use of collagenase Santyl topically, which will be applied on a daily basis. The patient has been instructed in appropriate means of application. The patient has been advised to optimize her nutritional intake. She has also been advised to keep her lower extremities elevated as much as possible, and to avoid prolonged idle sitting, in an effort to avoid swelling in her lower extremities. It is felt that the Dreft soaks have been unproductive, a matter which has been conveyed to the patient. The patient is to return in 1 week for reevaluation. Total time: 24 minutes 02/23/25 9840 <Electronically signed by Frankie Arrington MD> Cosigner Signature (if applicable): CC: ~ Signed [facility] Work Phone: [phone] 625-195107-02-2025 History and physical note [facility] [address] [place] [address] H&P Exam - Wound Care 02/23/25 1508 MR#: [id number] Acct: [id number] Name: JENNI STRICKLAND Rep #:[id number] : 1940 85 From: Frankie Harper PCP: Dr. Da Castro MD Status:REG R CR Location: History of Present Illness Date of Service: 02/22/25 Chief Complaint: Wound of the left distal lateral calf History of Wound: This is an 85-year-old female who presented with a traumatic wound on the distal left lateral calf. The trauma occurred in September, and thetraumatic wound failed to heal appropriately. The patient had been treated withoral doses of cephalexin and doxycycline by her primary care physician. She hadbeen using Dreft soaks topically on a daily basis. 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 She claims to ambulate liberally. She denies a history of thrombophlebitis. She denies a history of significant lower extremity swelling. The patient does not smoke. She is not diabetic. 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 classification Home Medications ?Medication ?Instructions ?Recorded ?Last Taken ?Type furosemide 20 mg tablet 20 mg PO DAILY PRN PRN leg 0 11/29/20 01/10/25 08:00 Rx swelling ##0 20 mg esomeprazole magnesium 40 mg 40 mg PO QAM #90 caps 08/1701/10/25 08:00 Rx capsule,delayed release 40 mg amlodipine 2.5 mg tablet 2.5 mg PO DAILY 01/10/25 08:00 History 2.5 mg calcium carbonate (Oyster Shell 500 mg PO DAILY 01/10/25 08:00 History Calcium) 500 mg lisinopril 20 mg tablet 20 mg PO DAILY 01/10/2512/23 08:00 History 20 mg lysine 500 mg tablet (L-Lysine) 500 mg PO DAILY 01/10/25 08:00 History 500 mg oxycodone 5 mg tablet 5 mg PO Q4H PRN PRN Pain Sco re 01/10/25 Unknown Rx 4-10 4 days #15 tabs vit C 250 mg-vit E 90 mg-zinc 40 1 tab PO BID eye heal th 01/10/25 01/10/25 08:00 History mg-copper 1 [id number] 1 TAB capsule (PreserVision AREDS-2) zinc acetate 50 mg (zinc) capsule 50 mg PO DAILY 01/1001/10/25 08:00 History (Galzin) 50 mg naproxen 500 mg tablet 500 mg PO BID PRN PRN pain 0 02/09/25 Unknown History oxycodone 5 mg capsule 5 mg PO Q6H PRN PRN pain Unknown History levofloxacin 500 mg tablet 500 mg PO DAILY Wound Infec tion 02/15/25 Unknown Rx #10 tabs Allergy/AdvReac Type Severity Reaction Status Date / Time Latex, Natural Rubber Allergy Mild Verified 02/09/25 13:43 simvastatin (From Zocor) Allergy Mild Verified 02/09/25 13:43 guaifenesin (From Robitussin) Allergy Unknown Verified 02/09/25 13:43 Penicillins Allergy Anaphylaxis Verified 02/09/25 13:43 Sulfa (Sulfonamide Allergy Unknown Verified 02/09/25 13:43 Antibiotics) Family History Mother Colon cancer Father Colon cancer Sister Breast cancer Diabetes CVA (cerebral vascular accident) Cervical cancer Brother Heart disease Daughter COPD (chronic obstructive pulmonary disease) Son Diabetes Surgical History History of cataract extraction History of amputation of right great toe History of appendectomy history of left arm surgery history of hand reconstruction Social History Smoking Status: Never smoker Physical Exam Const alert, oriented x3, no apparent distress, average body habitus and well nourished Constitutional Narrative: The patient's BMI is 25.1. General Appearance: cooperative, comfortable, well kempt and well developed Orientation / Consciousness: awake, oriented to person, oriented to place and oriented to time Exam Limitations: no limitations HEENT normocephalic and head/scalp atraumatic Head and Scalp: normal to inspection, normocephalic and atraumatic Face and Sinus: normal facial exam Nose: external nose normal External Ear: external ears normal Eyes EOMs intact bilaterally General Eye: normal appearance of both eyes Resp normal respiratory effort, normal air movement, no retractions and no use of accessory muscles Effort and Inspection: able to speak in complete sentences Skin Wound Narrative: An wound is noted on the patient's distal left lateral calf. The base of the wound demonstrates a small amount of yellow, nonviable, and devitalized tissue, in addition to bioburden. The areas of pink, healthy granulation tissue appear to be increasing. Dimensions are documented elsewhere. Wound margins are well beveled. There is a rim of faint erythema peripherally. The ulceration extendsthroughall layers of the dermis and into the subcutaneous tissues. Neuro oriented x3, CN's II-XII intact bilaterally, moves all extremities, no focal motor deficits and no sensory deficits noted Sensorium / Orientation: awake, alert, oriented to person, oriented to place andoriented to time Speech: speech normal Psych Appearance: grossly normal and appropriate Attitude: calm Activity / Motor Behavior: appropriate eye contact Speech: normal speech Mood & Affect: euthymic mood Thought Process: normal thought process Thought Content: normal thought content Attention / Concentration: attention grossly intact Debridement Note Debridement Note Wound debrided: Distal left lateral calf ulceration Laterality: Left Type of Debridement: Excisional debridement Anesthesia Used: 5% Lidocaine Gel and Cetacaine Depth: Down to and including healthy tissue and in the subcutaneous layer Percentage of wound debrided: 100 Instrument Used: 5mm curette Tissue Removed: Bioburden and nonviable tissue Severity: Fat Layer Exposed Amount of bleeding with debridement: Mild Bleeding Controlled with: Compression and gauze Patient tolerated procedure: Patient tolerated procedure well Post-Debridement Measurements and Additional Note: Post-Debridement Measurements/Treatment - Nurse 1 - General Ulcer Assessment Start: 02/22/25 08:07 Freq: Status: Active Protocol: INGRIS Activity Type Activity Date Activity User E-sign Co-sign Detail Recorded Client Recorded Date Recorded By Document 02/22/25 08:07 [facility] [id number] 02/22/25 08:10 [facility] 02/22/25 08:07 ELAYNE Rogers Today's Visit Information Type of service 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 ) Arrival Mode Ambulatory Transfer Assistance None Patient Identification Verified (Name & Yes ) Patient Requires Transmission-Based No Precautions Vital Signs Temperature (97.8 F-99.1 F) 98.4 F Temperature Source Temporal Pulse Rate (60-100) 71 Pulse Location Monitor Respiratory Rate (12-18) 16 Respiratory rate source Observation Oxygen Delivery Method Room Air Blood Pressure (90/60-120/80) 158/70 H Blood Pressure Mean 99 Source Monitor Position Sitting Blood Pressure Location Right Arm History Since Last Visit- (Skip if this is Patient's initial visit) Have you changed medications since your No last visit? Any new allergies or adverse reactions No Had a fall/change in ADL's that may No increase risk of falls Signs or symptoms of abuse and/or No neglect since last visit Have you been in the hospital since your No last visit? Has dressing in place as prescribed Yes Has compression in place as prescribed Yes Has offloadiing in place as prescribed N/A Experienced any changes in pain level or No management Left Footwear Regular Shoe Right Footwear Regular Shoe Pain Scale: 0-10 Numeric Is Patient Pain Free? Yes Sue Nurse 1 - General Ulcer Measurement Start: 02/22/25 08:07 Freq: Status: Active Protocol: Activity Type Activity Date Activity User E-sign Co-sign Detail Recorded Client Recorded Date Recorded By Document 02/22/25 08:07 [facility] [id number] 02/22/25 08:10 [facility] 02/22/25 08:07 Wound Center Nurse 1 #1 LT LAT LE -Combined with other wound No -Current Size (cm) - Length 3.2 -Current Size (cm) - Width 2 -Current Size (cm) - Depth 0.1 -Total Square Cm 6.4 -Date of Last Picture (Recall this 02/22/25 field) -Photo Taken Yes -Tunneling No -Undermining/Tunneling No -Circular Undermining No -Exudate Amt Medium -Exudate Type Serosanguineous -Wound Margin Flat & Intact -Granulation Amt Medium (34-66%) -Granulation Quality [place] -Slough/Fibrin Yes -Necrosis Amt Medium (34-66%) -Necrotic Tissue Type Adherent Slough -Texture (Terese-wound Skin Appearance) Assessed -Moisture (Terese-wound Skin Appearance) Assessed -Color (Terese-wound Skin Appearance) Assessed -Temperature (Terese-wound Skin No Abnormality Appearance) (Pt Warm) -Tenderness on Palpation (Terese-wound No Skin Appearance) -Ulcer Cleansing Rinsed/ Irrigated with Saline -Foul Odor after Cleansing No -Anesthetic Used 5% Lidocaine Gel WC - Nurse 2 - General Ulcer CM Notes Start: 02/22/25 08:07 Freq: Status: Active Protocol: Activity Type Activity Date Activity User E-sign Co-sign Detail Recorded Client Recorded Date Recorded By Document 02/22/25 08:18 DS [id number] 02/22/25 08:21 DS 02/22/25 08:18 Wound Center Nurse 2 -Time 08:18 -Correct Patient Yes -Correct Side, Site, Position Yes -Correct Procedure Yes -Procedure Performed Yes -Type of Procedure Debridement -Clinical Debridement Subcutaneous -Tissue Removed Subcutaneous -Post Debridement (cm) - Length 3.4 -Post Debridement (cm) - Width 2.0 -Post Debridement (cm) - Depth 0.2 -Total Square (Post) (cm) 6.80 -Area of Debridement (cm) - Length 3.4 -Area of Debridement (cm) - Width 2.0 -Total Square (Area) (cm) 6.80 -Tunneling No -Undermining/Tunneling No -Circular Undermining No -Wound/Ulcer Outcome Not Healed -Ulcer Cleansing gauze -Foul Odor after Cleansing No -Bioengineered Tissue No -Bleeding Controlled with Pressure -Treatment Response Procedure Tolerated Well -Debridement - Subq, 1st 20sq cm Yes Pain Scale: 0-10 Numeric Is Patient Pain Free? No left lat leg -Description Sharp,Throbbing -Intensity 6 -Duration (hours) Chronic -Pain Aggravating Factors Debridement -Alleviating Factors/Interventions Will continue to monitor, Emotional Support -Comments cetacaine spray used. WC - Nurse 3 - General Ulcer D/C NN Start: 02/22/25 08:07 Freq: Status: Active Protocol: Activity Type Activity Date Activity User E-sign Co-sign Detail Recorded Client Recorded Date Recorded By Document 02/22/25 08:29 [facility] [id number] 02/22/25 08:30 [facility] 02/22/25 08:29 Wound Care Center Nurse 3 #1 LT LAT LE -Ulcer Cleansing Rinsed/ Irrigated with Saline -Foul Odor after Cleansing No -Other Dressing santyl, moistened gauze -Primary Dressing Covered/Secured with Dry Gauze & Roll Gauze, Secured with Tape -Other Covering abd Treatment Response Procedure Tolerated Well Pain Scale: 0-10 Numeric Is Patient Pain Free? Yes - Visit Discharge Discharge Condition Stable Ambulatory Status Ambulatory Transportation Private Auto Charges/Coding Procedures Integumentary 111xxx-113xx: 78019 Saba subq tissue 20 sq cm/< Assessment/Plan Assessment/Plan (1) Non-pressure chronic ulcer of left lower leg with fat layer exposed: CODE(S): L97.922 - Non-pressure chronic ulcer of unspecified part of left lower leg with fat layer exposed (2) Lumbar degenerative disc disease: CODE(S): M51.369 - Other intervertebral disc degeneration, lumbar region without mention of lumbar back pain or lower extremity pain (3) Diverticulosis: CODE(S): K57.90 - Diverticulosis of intestine, part unspecified, without perforation or abscess without bleeding (4) Hiatal hernia with GERD without esophagitis: CODE(S): K44.9 - Diaphragmatic hernia without obstruction or gangrene; K21.9 - Gastro-esophageal reflux disease without esophagitis (5) History of cataract extraction: CODE(S): Z98.49 - Cataract extraction status, unspecified eye (6) History of amputation of right great toe: CODE(S): Z98.890 - Other specified postprocedural states; Z89.411 - Acquired absence of right greattoe (7) History of appendectomy: CODE(S): Z98.890 - Other specified postprocedural states; Z90.49 - Acquired absence of other specified parts of digestive tract (8) history of left arm surgery: (9) history of hand reconstruction: (10) HUMPHRIES (dyspnea on exertion): CODE(S): R06.09 - Other forms of dyspnea (11) Stage 1 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 The ulceration resulted from trauma which occurred several months ago. The patient had been previously treated with several courses of oral antibiotics, including cephalexin and doxycycline. She had recently been using Dreft soaks topically on a daily basis. An excisional debridement has been performed today. Swab cultures were obtained on February 11, 2025, the results of which indicated the growth of Staphylococcus aureus and Proteus mirabilis. The patient was placed on Levaquin 500 milligrams p.o. daily for a total of 10 days, which is nearly complete. We are to continue the use of collagenase Santyl topically, which will be applied on a daily basis. The patient has been instructed in appropriate means of application. The patient has beenadvised to optimize her nutritional intake. She has also been advised to keep her lower extremitieselevated as much as possible, and to avoid prolonged idle sitting, in an effort to avoid swelling in her lower extremities. It is felt that the Dreft soaks have been unproductive, a matter which has been conveyed to the patient. The patient is to return in 1 week for reevaluation. Total time: 24 minutes 02/23/25 6415 Cosigner Signature (if applicable): CC: ~ Signed [facility]06-27-2025 History and physical note Author Frankie Arrington [facility] Note Date/Time February 18, 2025 4:01 pm [facility] [address] [place] [address] H&P Exam - Wound Care 02/18/25 1551 MR#: [id number] Acct: [id number] Name: JENNI STRICKLAND Rep #:[id number] : 1940 85 From: Frankie Harper PCP: Dr. Da Castro MD Status:REG R CR Location: History of Present Illness Date of Service: 02/16/25 Chief Complaint: Wound of the left distal lateral calf History of Wound: This is an 85-year-old female who presented with a traumatic wound on the distal left lateral calf. The trauma occurred in September, and thetraumatic wound has failed to heal appropriately. The patient has been treated with oral doses of cephalexin and doxycycline by her primary care physician. She has been using Dreft soaks topically on a daily basis. 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 She claims to ambulate liberally. She denies a history of thrombophlebitis. She denies a history of significant lower extremity swelling. The patient does not smoke. She is not diabetic. 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 classification Home Medications ?Medication ?Instructions ?Recorded ?Last Taken ?Type furosemide 20 mg tablet 20 mg PO DAILY PRN PRN leg 0 11/29/20 01/10/25 08:00 Rx swelling ##0 20 mg esomeprazole magnesium 40 mg 40 mg PO QAM #90 caps 08/1701/10/25 08:00 Rx capsule,delayed release 40 mg amlodipine 2.5 mg tablet 2.5 mg PO DAILY 01/10/25 08:00 History 2.5 mg calcium carbonate (Oyster Shell 500 mg PO DAILY 01/10/25 08:00 History Calcium) 500 mg lisinopril 20 mg tablet 20 mg PO DAILY 01/10/2512/23 08:00 History 20 mg lysine 500 mg tablet (L-Lysine) 500 mg PO DAILY 01/10/25 08:00 History 500 mg oxycodone 5 mg tablet 5 mg PO Q4H PRN PRN Pain Sco re 01/10/25 Unknown Rx 4-10 4 days #15 tabs vit C 250 mg-vit E 90 mg-zinc 40 1 tab PO BID eye heal th 01/10/25 01/10/25 08:00 History mg-copper 1 [id number] 1 TAB capsule (PreserVision AREDS-2) zinc acetate 50 mg (zinc) capsule 50 mg PO DAILY 01/1001/10/25 08:00 History (Galzin) 50 mg naproxen 500 mg tablet 500 mg PO BID PRN PRN pain 0 02/09/25 Unknown History oxycodone 5 mg capsule 5 mg PO Q6H PRN PRN pain Unknown History levofloxacin 500 mg tablet 500 mg PO DAILY Wound Infec tion 02/15/25 Unknown Rx #10 tabs Allergy/AdvReac Type Severity Reaction Status Date / Time Latex, Natural Rubber Allergy Mild Verified 02/09/25 13:43 simvastatin (From Zocor) Allergy Mild Verified 02/09/25 13:43 guaifenesin (From Robitussin) Allergy Unknown Verified 02/09/25 13:43 Penicillins Allergy Anaphylaxis Verified 02/09/25 13:43 Sulfa (Sulfonamide Allergy Unknown Verified 02/09/25 13:43 Antibiotics) Family History Mother Colon cancer Father Colon cancer Sister Breast cancer Diabetes CVA (cerebral vascular accident) Cervical cancer Brother Heart disease Daughter COPD (chronic obstructive pulmonary disease) Son Diabetes Surgical History History of cataract extraction History of amputation of right great toe History of appendectomy history of left arm surgery history of hand reconstruction Social History Smoking Status: Never smoker Vital Signs Vital Signs Vital Signs: Weight Weight: 137 lb 8 oz Body Mass Index (BMI) 25.1 Physical Exam Const alert, oriented x3, no apparent distress, average body habitus and well nourished Constitutional Narrative: The patient's BMI is 25.1. General Appearance: cooperative, comfortable, well kempt and well developed Orientation / Consciousness: awake, oriented to person, oriented to place and oriented to time Exam Limitations: no limitations HEENT normocephalic and head/scalp atraumatic Head and Scalp: normal to inspection, normocephalic and atraumatic Face and Sinus: normal facial exam Nose: external nose normal External Ear: external ears normal Eyes EOMs intact bilaterally General Eye: normal appearance of both eyes Resp normal respiratory effort, normal air movement, no retractions and no use of accessory muscles Effort and Inspection: able to speak in complete sentences Extremity no calf tenderness General Extremity: Negative for clubbing or cyanosis Skin Wound Narrative: An wound is noted on the patient's distal left lateral calf. The base of the wound demonstrates a moderate amount of yellow, nonviable, and devitalized tissue. There do appear to be areas of pink, healthy granulation tissue. Dimensions are documented elsewhere. Wound margins are well beveled. There is a rim of erythema, suggestive of cellulitis. The ulceration extends through alllayers of the dermis and into the subcutaneous tissues. Neuro oriented x3, CN's II-XII intact bilaterally, moves all extremities, no focal motor deficits and no sensory deficits noted Sensorium / Orientation: awake, alert, oriented to person, oriented to place andoriented to time Speech: speech normal Psych Appearance: grossly normal and appropriate Attitude: calm Activity / Motor Behavior: appropriate eye contact Speech: normal speech Mood & Affect: euthymic mood Thought Process: normal thought process Thought Content: normal thought content Attention / Concentration: attention grossly intact Debridement Note Debridement Note Wound debrided: Distal left lateral calf ulceration Laterality: Left Type of Debridement: Excisional debridement Anesthesia Used: 5% Lidocaine Gel and Cetacaine Depth: Down to and including healthy tissue and in the subcutaneous layer Percentage of wound debrided: 100 Instrument Used: 3mm curette Tissue Removed: Bioburden and nonviable tissue Severity: Fat Layer Exposed Amount of bleeding with debridement: Mild Bleeding Controlled with: Compression and gauze Patient tolerated procedure: Patient tolerated procedure well Post-Debridement Measurements and Additional Note: Post-Debridement Measurements/Treatment ELAYNE - Nurse 1 - General Ulcer Assessment Start: 02/09/25 13:31 Freq: Status: Active Protocol: JANETHT Activity Type Activity Date Activity User E-sign Co-sign Detail Recorded Client Recorded Date Recorded By Document 02/09/25 13:31 KW [id number] 02/09/25 13:40 KW Document 02/16/25 13:13 KW [id number] 02/16/25 13:19 KW Edit Result 02/16/25 13:13 KW (1) [id number] 02/16/25 13:20 KW (1) Pulse Rate (60-100) => 80 Blood Pressure (90/60-120/80) => 150/83 H Blood Pressure Mean => 105 02/09/25 02/16/25 13:31 13:13 WC - Today's Visit Information Type of service Nurse-only Follow-up Visit Visit (Physician/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 ) Arrival Mode Ambulatory Ambulatory Patient Identification Verified (Name & Yes Yes ) Height and Weight Height 5 ft 2 in Weight 137 lb 8 oz Weight in Pounds 137.5 lbs Weight Measurement Method Estimated by Patient Body Mass Index (BMI) 25.1 25.1 BMI Classification Overweight Overweight Vital Signs Temperature (97.8 F-99.1 F) 97.7 F L 98.1 F Temperature Source Temporal Temporal Pulse Rate (60-100) 72 80 Pulse Location Monitor Monitor Respiratory Rate (12-18) 16 18 Respiratory rate source Observation Observation Oxygen Delivery Method Room Air Room Air Blood Pressure (90/60-120/80) 150/88 H 150/83 H Blood Pressure Mean 108 105 Source Monitor Monitor Position Semi-Fowlers Semi-Fowlers Blood Pressure Location Left Arm Left Arm History Since Last Visit- (Skip if this is Patient's initial visit) Have you changed medications since your No last visit? Any new allergies or adverse reactions No Had a fall/change in ADL's that may No increase risk of falls Signs or symptoms of abuse and/or No neglect since last visit Have you been in the hospital since your No last visit? Has dressing in place as prescribed Yes Has compression in place as prescribed Yes Has offloadiing in place as prescribed N/A Experienced any changes in pain level or No management Left Footwear Regular Shoe Regular Shoe Right Footwear Regular Shoe Regular Shoe Pain Scale: 0-10 Numeric Is Patient Pain Free? Yes Yes Communication Assessment Preferred language French Intensive Care Medicine Specialist Required No Able to Read Yes Able to Write Yes Right Hearing Abillity Use of Hearing Aid Left Hearing Abillity Use of Hearing Aid Visual Assistive Devices Glasses Teaching Assessment Preferences Verbal,Written, Demonstration Barriers to Learning None Readiness To Learn Excellent Willingness to Engage in Self Management High Activies Readiness to Engage in Self Management High Activities Anxiety Level Calm Cooperation Cooperative Perception Coherent Interest in Health Problem Asks Questions Education Importance Acknowledges Need Does Patient Smoke tobacco or other No substances Smoking Status Never smoker Is Patient Diabetic No Functional Assessment Recent Decline in Ability to Perform Denies Any Declines Culture/Jewish/Welder Tech Cultural/Jewish Needs that may affect No Treatment Plan Would you allow our [facility] director sales and trade marketing to No meet you for the purpose of spiritual/ emotional support? 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 No WC - Nurse 1 - General Ulcer Measurement Start: 02/09/25 13:31 Freq: Status: Active Protocol: Activity Type Activity Date Activity User E-sign Co-sign Detail Recorded Client Recorded Date Recorded By Document 02/09/25 13:31 [id number] 02/09/25 13:40 Document 02/16/25 13:13 [id number] 02/16/25 13:19 KW 02/09/25 02/16/25 13:31 13:13 Wound Center Nurse 1 #1 LT LAT LE -Current Size (cm) - Length 2 3.2 -Current Size (cm) - Width 1 1.8 -Current Size (cm) - Depth 0.1 0.1 -Total Square Cm 2 5.76 -Date of Last Picture (Recall this 02/09/25 02/16/25 field) -Photo Taken Yes -Exudate Amt None Present Medium -Exudate Type Serosanguineous -Wound Margin Distinct, Distinct, Outline Outline Attached Attached -Granulation Amt Small (1-33%) Small (1-33%) -Granulation Quality [place] -Necrosis Amt Large (67-100%) Large (67-100%) -Necrotic Tissue Type Adherent Slough Adherent Slough -Texture (Terese-wound Skin Appearance) Assessed Assessed -Moisture (Terese-wound Skin Appearance) Assessed Assessed -Color (Terese-wound Skin Appearance) Assessed, Assessed, Erythema, Erythema, Hemosiderin Hemosiderin Staining Staining -Temperature (Terese-wound Skin No Abnormality No Abnormality Appearance) (Pt Warm) (Pt Warm) -Tenderness on Palpation (Terese-wound No No Skin Appearance) -Ulcer Cleansing Soap and Water -Foul Odor after Cleansing No No -Anesthetic Used 5% Lidocaine 5% Lidocaine Gel Gel Left Calf (cm) 34.5 Left Ankle (cm) 21 - Nurse 2 - General Ulcer CM Notes Start: 02/09/25 13:31 Freq: Status: Active Protocol: Activity Type Activity Date Activity User E-sign Co-sign Detail Recorded Client Recorded Date Recorded By Document 02/09/25 14:05 [id number] 02/09/25 14:19 Document 02/16/25 13:47 [id number] 02/16/25 13:54 02/09/25 02/16/25 14:05 13:47 Wound Center Nurse 2 #1 LT LAT LE -Time 14:06 13:48 -Correct Patient Yes Yes -Correct Side, Site, Position Yes Yes -Correct Procedure Yes Yes -Procedure Performed Yes Yes -Type of Procedure Debridement Debridement -Clinical Debridement Subcutaneous Subcutaneous -Tissue Removed Subcutaneous Subcutaneous -Post Debridement (cm) - Length 2.0 3.0 -Post Debridement (cm) - Width 1.6 1.7 -Post Debridement (cm) - Depth 0.1 0.1 -Total Square (Post) (cm) 3.20 5.10 -Area of Debridement (cm) - Length 2.0 3.0 -Area of Debridement (cm) - Width 1.6 1.7 -Total Square (Area) (cm) 3.20 5.10 -Tunneling No No -Undermining/Tunneling No No -Circular Undermining No No -Wound/Ulcer Outcome Not Healed Not Healed -Ulcer Cleansing Rinsed/ Not Cleansed Irrigated with Saline -Foul Odor after Cleansing No No -Bioengineered Tissue No No -Bleeding Controlled with Pressure Pressure -Treatment Response Procedure Procedure Tolerated Well Tolerated Well -Offloading No No -Debridement - Subq, 1st 20sq cm Yes Yes Pain Scale: 0-10 Numeric Is Patient Pain Free? Yes Yes - Nurse 3 - General Ulcer D/C NN Start: 02/09/25 13:31 Freq: Status: Active Protocol: Activity Type Activity Date Activity User E-sign Co-sign Detail Recorded Client Recorded Date Recorded By Document 02/09/25 14:41 [facility] [id number] 02/09/25 14:42 [facility] Document 02/16/25 14:05 [facility] [id number] 02/16/25 14:05 BMF 02/09/25 02/16/25 14:41 14:05 Wound Care Center Nurse 3 #1 LT LAT LE -Ulcer Cleansing Rinsed/ Rinsed/ Irrigated with Irrigated with Saline Saline -Foul Odor after Cleansing No No -Other Dressing HYDROGEL santyl -Primary Dressing Covered/Secured with Dry Gauze & Dry Gauze & Roll Gauze Roll Gauze, Secured with Tape -Other Covering DRSG PER MT RN -Wound Comment(s) PT WILL BE PICKING UP SANTYL Treatment Response Procedure Procedure Tolerated Well Tolerated Well Pain Scale: 0-10 Numeric Is Patient Pain Free? Yes Yes WC - Visit Discharge Discharge Condition Stable Stable Ambulatory Status Ambulatory Ambulatory Transportation Private Auto Private Auto Charges/Coding Procedures Integumentary 111xxx-113xx: 61880 Saba subq tissue 20 sq cm/< Assessment/Plan Assessment/Plan (1) Non-pressure chronic ulcer of left lower leg with fat layer exposed: CODE(S): L97.922 - Non-pressure chronic ulcer of unspecified part of left lower leg with fat layer exposed (2) Lumbar degenerative disc disease: CODE(S): M51.369 - Other intervertebral disc degeneration, lumbar region without mention of lumbar back pain or lower extremity pain (3) Diverticulosis: CODE(S): K57.90 - Diverticulosis of intestine, part unspecified, without perforation or abscess without bleeding (4) Hiatal hernia with GERD without esophagitis: CODE(S): K44.9 - Diaphragmatic hernia without obstruction or gangrene; K21.9 - Gastro-esophageal reflux disease without esophagitis (5) History of cataract extraction: CODE(S): Z98.49 - Cataract extraction status, unspecified eye (6) History of amputation of right great toe: CODE(S): Z98.890 - Other specified postprocedural states; Z89.411 - Acquired absence of right great toe (7) History of appendectomy: CODE(S): Z98.890 - Other specified postprocedural states; Z90.49 - Acquired absence of other specified parts of digestive tract (8) history of left arm surgery: (9) history of hand reconstruction: (10) HUMPHRIES (dyspnea on exertion): CODE(S): R06.09 - Other forms of dyspnea (11) Stage 1 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 The ulceration resulted from trauma which occurred several months ago. The patient has been previously treated with several courses of oral antibiotics, including cephalexin and doxycycline. She has recently been using Dreft soaks topically on a daily basis. An excisional debridement has been performed today. Swab cultures were obtained on February 11, 2025, the results of which indicate thegrowth of Staphylococcus aureus and Proteus mirabilis. The patient has been placed on Levaquin 500 milligrams p.o. daily for a total of 10 days. We are to continue the use of collagenase Santyl topically, which will be applied on a daily basis. The patient has been instructed in appropriate means of application. The patient has been advised to optimize her nutritional intake. She has also been advised to keep her lower extremities elevated as much as possible, and to avoid prolonged idle sitting, in an effort to avoid swelling inher lower extremities. It is felt that the Dreft soaks have been unproductive, a matter which has been conveyed to the patient. The patient is to return in 1 week for reevaluation. Total time: 26 minutes 02/18/25 1601 <Electronically signed by Frankie Arrington MD> Cosigner Signature (if applicable): CC: ~ Signed [facility] Work Phone: [phone] History and physical note [facility] [address] [place] [address] H&P Exam - Wound Care 02/18/25 1551 MR#: [id number] Acct: [id number] Name: JENNI STRICKLAND Rep #:[id number] : 1940 85 From: Frankie Harper PCP: Dr. Da Castro MD Status:REG R CR Location: WC History of Present Illness Date of Service: 02/16/25 Chief Complaint: Wound of the left distal lateral calf History of Wound: This is an 85-year-old female who presented with a traumatic wound on the distal left lateral calf. The trauma occurred in September, and thetraumatic wound has failed to heal appropriately. The patient has been treated with oral doses of cephalexin and doxycycline by her primary care physician. She has been using Dreft soaks topically on a daily basis. 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 She claims to ambulate liberally. She denies a history of thrombophlebitis. She denies a history of significant lower extremity swelling. The patient does not smoke. She is not diabetic. 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 classification Home Medications ?Medication ?Instructions ?Recorded ?Last Taken ?Type furosemide 20 mg tablet 20 mg PO DAILY PRN PRN leg 0 11/29/20 01/10/25 08:00 Rx swelling ##0 20 mg esomeprazole magnesium 40 mg 40 mg PO QAM #90 caps 08/1701/10/25 08:00 Rx capsule,delayed release 40 mg amlodipine 2.5 mg tablet 2.5 mg PO DAILY 01/10/25 08:00 History 2.5 mg calcium carbonate (Oyster Shell 500 mg PO DAILY 01/10/25 08:00 History Calcium) 500 mg lisinopril 20 mg tablet 20 mg PO DAILY 01/10/2512/23 08:00 History 20 mg lysine 500 mg tablet (L-Lysine) 500 mg PO DAILY 01/10/25 08:00 History 500 mg oxycodone 5 mg tablet 5 mg PO Q4H PRN PRN Pain Sco re 01/10/25 Unknown Rx 4-10 4 days #15 tabs vit C 250 mg-vit E 90 mg-zinc 40 1 tab PO BID eye heal th 01/10/25 01/10/25 08:00 History mg-copper 1 [id number] 1 TAB capsule (PreserVision AREDS-2) zinc acetate 50 mg (zinc) capsule 50 mg PO DAILY 01/1001/10/25 08:00 History (Galzin) 50 mg naproxen 500 mg tablet 500 mg PO BID PRN PRN pain 0 02/09/25 Unknown History oxycodone 5 mg capsule 5 mg PO Q6H PRN PRN pain Unknown History levofloxacin 500 mg tablet 500 mg PO DAILY Wound Infec tion 02/15/25 Unknown Rx #10 tabs Allergy/AdvReac Type Severity Reaction Status Date / Time Latex, Natural Rubber Allergy Mild Verified 02/09/25 13:43 simvastatin (From Zocor) Allergy Mild Verified 02/09/25 13:43 guaifenesin (From Robitussin) Allergy Unknown Verified 02/09/25 13:43 Penicillins Allergy Anaphylaxis Verified 02/09/25 13:43 Sulfa (Sulfonamide Allergy Unknown Verified 02/09/25 13:43 Antibiotics) Family History Mother Colon cancer Father Colon cancer Sister Breast cancer Diabetes CVA (cerebral vascular accident) Cervical cancer Brother Heart disease Daughter COPD (chronic obstructive pulmonary disease) Son Diabetes Surgical History History of cataract extraction History of amputation of right great toe History of appendectomy history of left arm surgery history of hand reconstruction Social History Smoking Status: Never smoker Vital Signs Vital Signs Vital Signs: Weight Weight: 137 lb 8 oz Body Mass Index (BMI) 25.1 Physical Exam Const alert, oriented x3, no apparent distress, average body habitus and well nourished Constitutional Narrative: The patient's BMI is 25.1. General Appearance: cooperative, comfortable, well kempt and well developed Orientation / Consciousness: awake, oriented to person, oriented to place and oriented to time Exam Limitations: no limitations HEENT normocephalic and head/scalp atraumatic Head and Scalp: normal to inspection, normocephalic and atraumatic Face and Sinus: normal facial exam Nose: external nose normal External Ear: external ears normal Eyes EOMs intact bilaterally General Eye: normal appearance of both eyes Resp normal respiratory effort, normal air movement, no retractions and no use of accessory muscles Effort and Inspection: able to speak in complete sentences Extremity no calf tenderness General Extremity: Negative for clubbing or cyanosis Skin Wound Narrative: An wound is noted on the patient's distal left lateral calf. The base of the wound demonstrates a moderate amount of yellow, nonviable, and devitalized tissue. There do appear to be areas of pink, healthy granulation tissue. Dimensions are documented elsewhere. Wound margins are well beveled. Thereis a rim of erythema, suggestive of cellulitis. The ulceration extends through alllayers of the dermis and into the subcutaneous tissues. Neuro oriented x3, CN's II-XII intact bilaterally, moves all extremities, no focal motor deficits and no sensory deficits noted Sensorium / Orientation: awake, alert, oriented to person, oriented to place andoriented to time Speech: speech normal Psych Appearance: grossly normal and appropriate Attitude: calm Activity / Motor Behavior: appropriate eye contact Speech: normal speech Mood & Affect: euthymic mood Thought Process: normal thought process Thought Content: normal thought content Attention / Concentration: attention grossly intact Debridement Note Debridement Note Wound debrided: Distal left lateral calf ulceration Laterality: Left Type of Debridement: Excisional debridement Anesthesia Used: 5% Lidocaine Gel and Cetacaine Depth: Down to and including healthy tissue and in the subcutaneous layer Percentage of wound debrided: 100 Instrument Used: 3mm curette Tissue Removed: Bioburden and nonviable tissue Severity: Fat Layer Exposed Amount of bleeding with debridement: Mild Bleeding Controlled with: Compression and gauze Patient tolerated procedure: Patient tolerated procedure well Post-Debridement Measurements and Additional Note: Post-Debridement Measurements/Treatment WC - Nurse 1 - General Ulcer Assessment Start: 02/09/25 13:31 Freq: Status: Active Protocol: INGRIS Activity Type Activity Date Activity User E-sign Co-sign Detail Recorded Client Recorded Date Recorded By Document 02/09/25 13:31 KW [id number] 02/09/25 13:40 KW Document 02/16/25 13:13 KW [id number] 02/16/25 13:19 KW Edit Result 02/16/25 13:13 KW (1) [id number] 02/16/25 13:20 KW (1) Pulse Rate (60-100) => 80 Blood Pressure (90/60-120/80) => 150/83 H Blood Pressure Mean => 105 02/09/25 02/16/25 13:31 13:13 WC - Today's Visit Information Type of service Nurse-only Follow-up Visit Visit (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/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 ) Arrival Mode Ambulatory Ambulatory Patient Identification Verified (Name & Yes Yes ) Height and Weight Height 5 ft 2 in Weight 137 lb 8 oz Weight in Pounds 137.5 lbs Weight Measurement Method Estimated by Patient Body Mass Index (BMI) 25.1 25.1 BMI Classification Overweight Overweight Vital Signs Temperature (97.8 F-99.1 F) 97.7 F L 98.1 F Temperature Source Temporal Temporal Pulse Rate (60-100) 72 80 Pulse Location Monitor Monitor Respiratory Rate (12-18) 16 18 Respiratory rate source Observation Observation Oxygen Delivery Method Room Air Room Air Blood Pressure (90/60-120/80) 150/88 H 150/83 H Blood Pressure Mean 108 105 Source Monitor Monitor Position Semi-Fowlers Semi-Fowlers Blood Pressure Location Left Arm Left Arm History Since Last Visit- (Skip if this is Patient's initial visit) Have you changed medications since your No last visit? Any new allergies or adverse reactions No Had a fall/change in ADL's that may No increase risk of falls Signs or symptoms of abuse and/or No neglect since last visit Have you been in the hospital since your No last visit? Has dressing in place as prescribed Yes Has compression in place as prescribed Yes Has offloadiing in place as prescribed N/A Experienced any changes in pain level or No management Left Footwear Regular Shoe Regular Shoe Right Footwear Regular Shoe Regular Shoe Pain Scale: 0-10 Numeric Is Patient Pain Free? Yes Yes Communication Assessment Preferred language French Intensive Care Medicine Specialist Required No Able to Read Yes Able to Write Yes Right Hearing Abillity Use of Hearing Aid Left Hearing Abillity Use of Hearing Aid Visual Assistive Devices Glasses Teaching Assessment Preferences Verbal,Written, Demonstration Barriers to Learning None Readiness To Learn Excellent Willingness to Engage in Self Management High Activies Readiness to Engage in Self Management High Activities Anxiety Level Calm Cooperation Cooperative Perception Coherent Interest in Health Problem Asks Questions Education Importance Acknowledges Need Does Patient Smoke tobacco or other No substances Smoking Status Never smoker Is Patient Diabetic No Functional Assessment Recent Decline in Ability to Perform Denies Any Declines Culture/Jewish/Welder Tech Cultural/Jewish Needs that may affect No Treatment Plan Would you allow our hospital director sales and trade marketing to No meet you for the purpose of spiritual/ emotional support? 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 No WC - Nurse 1 - General Ulcer Measurement Start: 02/09/25 13:31 Freq: Status: Active Protocol: Activity Type Activity Date Activity User E-sign Co-sign Detail Recorded Client Recorded Date Recorded By Document 02/09/25 13:31 [id number] 02/09/25 13:40 Document 02/16/25 13:13 [id number] 02/16/25 13:19 02/09/25 02/16/25 13:31 13:13 Wound Center Nurse 1 #1 LT LAT LE -Current Size (cm) - Length 2 3.2 -Current Size (cm) - Width 1 1.8 -Current Size (cm) - Depth 0.1 0.1 -Total Square Cm 2 5.76 -Date of Last Picture (Recall this 02/09/25 02/16/25 field) -Photo Taken Yes -Exudate Amt None Present Medium -Exudate Type Serosanguineous -Wound Margin Distinct, Distinct, Outline Outline Attached Attached -Granulation Amt Small (1-33%) Small (1-33%) -Granulation Quality [place] -Necrosis Amt Large (67-100%) Large (67-100%) -Necrotic Tissue Type Adherent Slough Adherent Slough -Texture (Terese-wound Skin Appearance) Assessed Assessed -Moisture (Terese-wound Skin Appearance) Assessed Assessed -Color (Terese-wound Skin Appearance) Assessed, Assessed, Erythema, Erythema, Hemosiderin Hemosiderin Staining Staining -Temperature (Terese-wound Skin No Abnormality No Abnormality Appearance) (Pt Warm) (Pt Warm) -Tenderness on Palpation (Terese-wound No No Skin Appearance) -Ulcer Cleansing Soap and Water -Foul Odor after Cleansing No No -Anesthetic Used 5% Lidocaine 5% Lidocaine Gel Gel Left Calf (cm) 34.5 Left Ankle (cm) 21 WC - Nurse 2 - General Ulcer CM Notes Start: 02/09/25 13:31 Freq: Status: Active Protocol: Activity Type Activity Date Activity User E-sign Co-sign Detail Recorded Client Recorded Date Recorded By Document 02/09/25 14:05 [id number] 02/09/25 14:19 Document 02/16/25 13:47 [id number] 02/16/25 13:54 02/09/25 02/16/25 14:05 13:47 Wound Center Nurse 2 #1 LT LAT LE -Time 14:06 13:48 -Correct Patient Yes Yes -Correct Side, Site, Position Yes Yes -Correct Procedure Yes Yes -Procedure Performed Yes Yes -Type of Procedure Debridement Debridement -Clinical Debridement Subcutaneous Subcutaneous -Tissue Removed Subcutaneous Subcutaneous -Post Debridement (cm) - Length 2.0 3.0 -Post Debridement (cm) - Width 1.6 1.7 -Post Debridement (cm) - Depth 0.1 0.1 -Total Square (Post) (cm) 3.20 5.10 -Area of Debridement (cm) - Length 2.0 3.0 -Area of Debridement (cm) - Width 1.6 1.7 -Total Square (Area) (cm) 3.20 5.10 -Tunneling No No -Undermining/Tunneling No No -Circular Undermining No No -Wound/Ulcer Outcome Not Healed Not Healed -Ulcer Cleansing Rinsed/ Not Cleansed Irrigated with Saline -Foul Odor after Cleansing No No -Bioengineered Tissue No No -Bleeding Controlled with Pressure Pressure -Treatment Response Procedure Procedure Tolerated Well Tolerated Well -Offloading No No -Debridement - Subq, 1st 20sq cm Yes Yes Pain Scale: 0-10 Numeric Is Patient Pain Free? Yes Yes WC - Nurse 3 - General Ulcer D/C NN Start: 02/09/25 13:31 Freq: Status: Active Protocol: Activity Type Activity Date Activity User E-sign Co-sign Detail Recorded Client Recorded Date Recorded By Document 02/09/25 14:41 [facility] [id number] 02/09/25 14:42 [facility] Document 02/16/25 14:05 [facility] [id number] 02/16/25 14:05 [facility] 02/09/25 02/16/25 14:41 14:05 Wound Care Center Nurse 3 #1 LT LAT LE -Ulcer Cleansing Rinsed/ Rinsed/ Irrigated with Irrigated with Saline Saline -Foul Odor after Cleansing No No -Other Dressing HYDROGEL santyl -Primary Dressing Covered/Secured with Dry Gauze & Dry Gauze & Roll Gauze Roll Gauze, Secured with Tape -Other Covering DRSG PER MT RN -Wound Comment(s) PT WILL BE PICKING UP SANTYL Treatment Response Procedure Procedure Tolerated Well Tolerated Well Pain Scale: 0-10 Numeric Is Patient Pain Free? Yes Yes WC - Visit Discharge Discharge Condition Stable Stable Ambulatory Status Ambulatory Ambulatory Transportation Private Auto Private Auto Charges/Coding Procedures Integumentary 111xxx-113xx: [id number] Saba subq tissue 20 sq cm/< Assessment/Plan Assessment/Plan (1) Non-pressure chronic ulcer of left lower leg with fat layer exposed: CODE(S): L97.922 - Non-pressure chronic ulcer of unspecified part of left lower leg with fat layer exposed (2) Lumbar degenerative disc disease: CODE(S): M51.369 - Other intervertebral disc degeneration, lumbar region without mention of lumbar back pain or lower extremity pain (3) Diverticulosis: CODE(S): K57.90 - Diverticulosis of intestine, part unspecified, without perforation or abscess without bleeding (4) Hiatal hernia with GERD without esophagitis: CODE(S): K44.9 - Diaphragmatic hernia without obstruction or gangrene; K21.9 - Gastro-esophageal reflux disease without esophagitis (5) History of cataract extraction: CODE(S): Z98.49 - Cataract extraction status, unspecified eye (6) History of amputation of right great toe: CODE(S): Z98.890 - Other specified postprocedural states; Z89.411 - Acquired absence of right greattoe (7) History of appendectomy: CODE(S): Z98.890 - Other specified postprocedural states; Z90.49 - Acquired absence of other specified parts of digestive tract (8) history of left arm surgery: (9) history of hand reconstruction: (10) HUMPHRIES (dyspnea on exertion): CODE(S): R06.09 - Other forms of dyspnea (11) Stage 1 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 The ulceration resulted from trauma which occurred several months ago. The patient has been previously treated with several courses of oral antibiotics, including cephalexin and doxycycline. She has recently been using Dreft soaks topically on a daily basis. An excisional debridement has been performed today. Swab cultures were obtained on February 11, 2025, the results of which indicate thegrowth of Staphylococcus aureus and Proteus mirabilis. The patient has been placed on Levaquin 500 milligrams p.o. daily for a total of 10 days. We are to continue the use of collagenase Santyl topically, which will be applied on a daily basis. The patient has been instructed in appropriate means of application. The patient has been advised to optimize her nutritional intake. She has also been advised to keep her lower extremities elevated as much as pos sible, and to avoid prolonged idle sitting, in an effort to avoid swelling inher lower extremities.It is felt that the Dreft soaks have been unproductive, a matter which has been conveyed to the patient. The patient is to return in 1 week for reevaluation. Total time: 26 minutes 02/18/25 1601 Cosigner Signature (if applicable): CC: ~ Signed [facility]06-20-2025 History and physical note Author Frankie Arrington [facility] Note Date/Time February 11, 2025 4:36 pm [facility] [address] [place] [id number] H&P Exam - Wound Care 02/11/25 1615 MR#: [id number] Acct: [id number] Name: JENNI STRICKLAND Rep #:[id number] 5 : 1940 85 From: Frankie Harper PCP: Dr. Da Castro MD Status:REG R CR Location: History of Present Illness Date of Service: 02/09/25 Chief Complaint: Wound of the left distal lateral calf History of Wound: This is an 85-year-old female who presented with a traumatic wound on the distal left lateral calf. The trauma occurred in September, and thetraumatic wound has failed to heal appropriately. The patient has been treated with oral doses of cephalexin and doxycycline by her primary care physician. She has been using Dreft soaks topically on a daily basis. 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 She claims to ambulate liberally. She denies a history of thrombophlebitis. She denies a history of significant lower extremity swelling. The patient does not smoke. She is not diabetic. 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 classification Home Medications ?Medication ?Instructions ?Recorded ?Last Taken ?Type furosemide 20 mg tablet 20 mg PO DAILY PRN PRN leg 0 11/29/20 01/10/25 08:00 Rx swelling ##0 20 mg esomeprazole magnesium 40 mg 40 mg PO QAM #90 caps 08/1701/10/25 08:00 Rx capsule,delayed release 40 mg amlodipine 2.5 mg tablet 2.5 mg PO DAILY 01/10/25 08:00 History 2.5 mg calcium carbonate (Oyster Shell 500 mg PO DAILY 01/10/25 08:00 History Calcium) 500 mg lisinopril 20 mg tablet 20 mg PO DAILY 01/10/2512/23 08:00 History 20 mg lysine 500 mg tablet (L-Lysine) 500 mg PO DAILY 01/10/25 08:00 History 500 mg oxycodone 5 mg tablet 5 mg PO Q4H PRN PRN Pain Sco re 01/10/25 Unknown Rx 4-10 4 days #15 tabs vit C 250 mg-vit E 90 mg-zinc 40 1 tab PO BID eye heal th 01/10/25 01/10/25 08:00 History mg-copper 1 [id number] 1 TAB capsule (PreserVision AREDS-2) zinc acetate 50 mg (zinc) capsule 50 mg PO DAILY 01/1001/10/25 08:00 History (Galzin) 50 mg naproxen 500 mg tablet 500 mg PO BID PRN PRN pain 0 02/09/25 Unknown History oxycodone 5 mg capsule 5 mg PO Q6H PRN PRN pain Unknown History Allergy/AdvReac Type Severity Reaction Status Date / Time Latex, Natural Rubber Allergy Mild Verified 02/09/25 13:43 simvastatin (From Zocor) Allergy Mild Verified 02/09/25 13:43 guaifenesin (From Robitussin) Allergy Unknown Verified 02/09/25 13:43 Penicillins Allergy Anaphylaxis Verified 02/09/25 13:43 Sulfa (Sulfonamide Allergy Unknown Verified 02/09/25 13:43 Antibiotics) Family History Mother Colon cancer Father Colon cancer Sister Breast cancer Diabetes CVA (cerebral vascular accident) Cervical cancer Brother Heart disease Daughter COPD (chronic obstructive pulmonary disease) Son Diabetes Surgical History History of cataract extraction History of amputation of right great toe History of appendectomy history of left arm surgery history of hand reconstruction Social History Smoking Status: Never smoker Vital Signs Vital Signs Vital Signs: Weight Weight: 137 lb 8 oz Body Mass Index (BMI) 25.1 Physical Exam Const alert, oriented x3, no apparent distress, average body habitus and well nourished Constitutional Narrative: The patient's BMI is 25.1. General Appearance: cooperative, comfortable, well kempt and well developed Orientation / Consciousness: awake, oriented to person, oriented to place and oriented to time Exam Limitations: no limitations HEENT normocephalic and head/scalp atraumatic Head and Scalp: normal to inspection, normocephalic and atraumatic Face and Sinus: normal facial exam Nose: external nose normal External Ear: external ears normal Eyes EOMs intact bilaterally General Eye: normal appearance of both eyes Resp normal respiratory effort, normal air movement, no retractions and no use of accessory muscles Effort and Inspection: able to speak in complete sentences Extremity no calf tenderness General Extremity: Negative for clubbing or cyanosis Skin Wound Narrative: An ulceration is noted on the patient's distal left lateral calf. The base of the ulceration demonstrates a large amount of yellow, nonviable, and devitalizedtissue. Dimensions are documented elsewhere. Ulcer dimensions are well beveled. There is a rim of erythema, suggestive of cellulitis. The ulceration extends through all layers of the dermis and into the subcutaneous tissues. Neuro oriented x3, CN's II-XII intact bilaterally, moves all extremities, no focal motor deficits and no sensory deficits noted Sensorium / Orientation: awake, alert, oriented to person, oriented to place andoriented to time Speech: speech normal Psych Appearance: grossly normal and appropriate Attitude: calm Activity / Motor Behavior: appropriate eye contact Speech: normal speech Mood & Affect: euthymic mood Thought Process: normal thought process Thought Content: normal thought content Attention / Concentration: attention grossly intact Debridement Note Debridement Note Wound debrided: Distal left lateral calf ulceration Laterality: Left Type of Debridement: Excisional debridement Anesthesia Used: 5% Lidocaine Gel and Cetacaine Depth: Down to and including healthy tissue and in the subcutaneous layer Percentage of wound debrided: 100 Instrument Used: 5mm curette Severity: Fat Layer Exposed Amount of bleeding with debridement: Mild Bleeding Controlled with: Compression and gauze Patient tolerated procedure: Patient tolerated procedure well Debridement Free Text: Despite the use of lidocaine gel and Cetacaine spray, patient experienced significant pain and discomfort during the debridement process. Because of the associated terese-ulcer erythema, a swab culture was obtained for aerobic and anaerobic bacterial growth. Post-Debridement Measurements and Additional Note: Post-Debridement Measurements/Treatment - Nurse 1 - General Ulcer Assessment Start: 02/09/25 13:31 Freq: Status: Active Protocol: INGRIS Activity Type Activity Date Activity User E-sign Co-sign Detail Recorded Client Recorded Date Recorded By Document 02/09/25 13:31 [id number] 02/09/25 13:40 02/09/25 13:31 - Today's Visit Information Type of service Nurse-only Visit Arrival Mode Ambulatory Patient Identification Verified (Name & Yes ) Height and Weight Height 5 ft 2 in Weight 137 lb 8 oz Weight in Pounds 137.5 lbs Weight Measurement Method Estimated by Patient Body Mass Index (BMI) 25.1 BMI Classification Overweight Vital Signs Temperature (97.8 F-99.1 F) 97.7 F L Temperature Source Temporal Pulse Rate (60-100) 72 Pulse Location Monitor Respiratory Rate (12-18) 16 Respiratory rate source Observation Oxygen Delivery Method Room Air Blood Pressure (90/60-120/80) 150/88 H Blood Pressure Mean 108 Source Monitor Position Semi-Fowlers Blood Pressure Location Left Arm History Since Last Visit- (Skip if this is Patient's initial visit) Left Footwear Regular Shoe Right Footwear Regular Shoe Pain Scale: 0-10 Numeric Is Patient Pain Free? Yes Communication Assessment Preferred language French Intensive Care Medicine Specialist Required No Able to Read Yes Able to Write Yes Right Hearing Abillity Use of Hearing Aid Left Hearing Abillity Use of Hearing Aid Visual Assistive Devices Glasses Teaching Assessment Preferences Verbal,Written, Demonstration Barriers to Learning None Readiness To Learn Excellent Willingness to Engage in Self Management High Activies Readiness to Engage in Self Management High Activities Anxiety Level Calm Cooperation Cooperative Perception Coherent Interest in Health Problem Asks Questions Education Importance Acknowledges Need Does Patient Smoke tobacco or other No substances Smoking Status Never smoker Is Patient Diabetic No Functional Assessment Recent Decline in Ability to Perform Denies Any Declines Culture/Jewish/Welder [employer] Cultural/Jewish Needs that may affect No Treatment Plan Would you allow our [facility] director sales and trade marketing to No meet you for the purpose of spiritual/ emotional support? 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 No WC - Nurse 1 - General Ulcer Measurement Start: 02/09/25 13:31 Freq: Status: Active Protocol: Activity Type Activity Date Activity User E-sign Co-sign Detail Recorded Client Recorded Date Recorded By Document 02/09/25 13:31 [email or web address] [id number] 02/09/25 13:40 KW 02/09/25 13:31 Wound Center Nurse 1 #1 LT LAT LE -Current Size (cm) - Length 2 -Current Size (cm) - Width 1 -Current Size (cm) - Depth 0.1 -Total Square Cm 2 -Date of Last Picture (Recall this 02/09/25 field) -Photo Taken Yes -Exudate Amt None Present -Wound Margin Distinct, Outline Attached -Granulation Amt Small (1-33%) -Granulation Quality [place] -Necrosis Amt Large (67-100%) -Necrotic Tissue Type Adherent Slough -Texture (Terese-wound Skin Appearance) Assessed -Moisture (Terese-wound Skin Appearance) Assessed -Color (Terese-wound Skin Appearance) Assessed, Erythema, Hemosiderin Staining -Temperature (Terese-wound Skin No Abnormality Appearance) (Pt Warm) -Tenderness on Palpation (Terese-wound No Skin Appearance) -Ulcer Cleansing Soap and Water -Foul Odor after Cleansing No -Anesthetic Used 5% Lidocaine Gel Left Calf (cm) 34.5 Left Ankle (cm) 21 WC - Nurse 2 - General Ulcer CM Notes Start: 02/09/25 13:31 Freq: Status: Active Protocol: Activity Type Activity Date Activity User E-sign Co-sign Detail Recorded Client Recorded Date Recorded By Document 02/09/25 14:05 [id number] 02/09/25 14:19 02/09/25 14:05 Wound Center Nurse 2 #1 LT LAT LE -Time 14:06 -Correct Patient Yes -Correct Side, Site, Position Yes -Correct Procedure Yes -Procedure Performed Yes -Type of Procedure Debridement -Clinical Debridement Subcutaneous -Tissue Removed Subcutaneous -Post Debridement (cm) - Length 2.0 -Post Debridement (cm) - Width 1.6 -Post Debridement (cm) - Depth 0.1 -Total Square (Post) (cm) 3.20 -Area of Debridement (cm) - Length 2.0 -Area of Debridement (cm) - Width 1.6 -Total Square (Area) (cm) 3.20 -Tunneling No -Undermining/Tunneling No -Circular Undermining No -Wound/Ulcer Outcome Not Healed -Ulcer Cleansing Rinsed/ Irrigated with Saline -Foul Odor after Cleansing No -Bioengineered Tissue No -Bleeding Controlled with Pressure -Treatment Response Procedure Tolerated Well -Offloading No -Debridement - Subq, 1st 20sq cm Yes Pain Scale: 0-10 Numeric Is Patient Pain Free? Yes - Nurse 3 - General Ulcer D/C NN Start: 02/09/25 13:31 Freq: Status: Active Protocol: Activity Type Activity Date Activity User E-sign Co-sign Detail Recorded Client Recorded Date Recorded By Document 02/09/25 14:41 [facility] [id number] 02/09/25 14:42 [facility] 02/09/25 14:41 Wound Care Center Nurse 3 #1 LT LAT LE -Ulcer Cleansing Rinsed/ Irrigated with Saline -Foul Odor after Cleansing No -Other Dressing HYDROGEL -Primary Dressing Covered/Secured with Dry Gauze & Roll Gauze -Other Covering DRSG PER MT RN -Wound Comment(s) PT WILL BE PICKING UP SANTYL Treatment Response Procedure Tolerated Well Pain Scale: 0-10 Numeric Is Patient Pain Free? Yes - Visit Discharge Discharge Condition Stable Ambulatory Status Ambulatory Transportation Private Auto Lab / Micro Data Attestation: I reviewed the patient's lab results. Labs: Laboratory Tests 01/10/25 07:57 WBC 5.5 Hgb 13.9 Hct 41.4 Plt Count 238 Sodium 142 Potassium 3.9 Chloride 110 H Carbon Dioxide 22.2 BUN 21 H Creatinine 0.87 Glucose 91 Calcium 9.4 Total Bilirubin 0.25 AST 24 ALT 11 Alkaline Phosphatase 107 H Total Protein 6.8 Albumin 3.8 Charges/Coding Multi Select Codes Visit Charges Office Visit/Consults: 94472 OV L4 New 45 min Integumentary Integumentary CPT Codes: 37300 Saba subq tissue 20 sq cm/< Assessment/Plan Assessment/Plan (1) Non-pressure chronic ulcer of left lower leg with fat layer exposed: CODE(S): L97.922 - Non-pressure chronic ulcer of unspecified part of left lower leg with fat layer exposed (2) Lumbar degenerative disc disease: CODE(S): M51.369 - Other intervertebral disc degeneration, lumbar region without mention of lumbar back pain or lower extremity pain (3) Diverticulosis: CODE(S): K57.90 - Diverticulosis of intestine, part unspecified, without perforation or abscess without bleeding (4) Hiatal hernia with GERD without esophagitis: CODE(S): K44.9 - Diaphragmatic hernia without obstruction or gangrene; K21.9 - Gastro-esophageal reflux disease without esophagitis (5) History of cataract extraction: CODE(S): Z98.49 - Cataract extraction status, unspecified eye (6) History of amputation of right great toe: CODE(S): Z98.890 - Other specified postprocedural states; Z89.411 - Acquired absence of right great toe (7) History of appendectomy: CODE(S): Z98.890 - Other specified postprocedural states; Z90.49 - Acquired absence of other specified parts of digestive tract (8) history of left arm surgery: (9) history of hand reconstruction: (10) HUMPHRIES (dyspnea on exertion): CODE(S): R06.09 - Other forms of dyspnea (11) Stage 1 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 The ulceration resulted from trauma which occurred several months ago. Patient has been treated with several courses of oral antibiotics, including cephalexin and doxycycline. She has recently been using Dreft soaks topically on a daily basis. An excisional debridement has been performed today, and swab cultures were obtained for aerobic and anaerobic bacterial growth. The ulceration demonstrates significant devitalized and nonviable tissue. We are to implement the use of collagenase Santyl topically, which will be applied on a daily basis. The patient has been instructed in appropriate means of application. She has been provided a coupon to mitigate the cost of the collagenase Santyl. Patient has been advised to optimize her nutritional intake. She has also been advised to keep her lower extremities elevated is much as possible, and to avoid prolonged idle sitting, in an effort to avoid swelling in her lower extremities. It is felt that the Dreft soaks have been unproductive, a matter which has beenconveyed to the patient. The patient is to return in 1 week for reevaluation. The results of her swab culture will be awaited. Total time: 48 minutes 02/11/25 1636 <Electronically signed by Frankie Arrington MD> Cosigner Signature (if applicable): CC: ~ Signed [facility] Work Phone: [phone] 178-563606-20-2025 History and physical note [facility] [address] [place] [address] H&P Exam - Wound Care 02/11/25 1615 MR#: [id number] Acct: [id number] Name: JENNI STRICKLAND Rep #:[id number] 5 : 1940 85 From: Frankie Harper PCP: Dr. Da Castro MD Status:REG R CR Location: History of Present Illness Date of Service: 02/09/25 Chief Complaint: Wound of the left distal lateral calf History of Wound: This is an 85-year-old female who presented with a traumatic wound on the distal left lateral calf. The trauma occurred in September, and thetraumatic wound has failed to heal appropriately. The patient has been treated with oral doses of cephalexin and doxycycline by her primary care physician. She has been using Dreft soaks topically on a daily basis. 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 She claims to ambulate liberally. She denies a history of thrombophlebitis. She denies a history of significant lower extremity swelling. The patient does not smoke. She is not diabetic. 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 classification Home Medications ?Medication ?Instructions ?Recorded ?Last Taken ?Type furosemide 20 mg tablet 20 mg PO DAILY PRN PRN leg 0 11/29/20 01/10/25 08:00 Rx swelling ##0 20 mg esomeprazole magnesium 40 mg 40 mg PO QAM #90 caps 08/1701/10/25 08:00 Rx capsule,delayed release 40 mg amlodipine 2.5 mg tablet 2.5 mg PO DAILY 01/10/25 08:00 History 2.5 mg calcium carbonate (Oyster Shell 500 mg PO DAILY 01/10/25 08:00 History Calcium) 500 mg lisinopril 20 mg tablet 20 mg PO DAILY 01/10/2512/23 08:00 History 20 mg lysine 500 mg tablet (L-Lysine) 500 mg PO DAILY 01/10/25 08:00 History 500 mg oxycodone 5 mg tablet 5 mg PO Q4H PRN PRN Pain Sco re 01/10/25 Unknown Rx 4-10 4 days #15 tabs vit C 250 mg-vit E 90 mg-zinc 40 1 tab PO BID eye heal th 01/10/25 01/10/25 08:00 History mg-copper 1 [id number] 1 TAB capsule (PreserVision AREDS-2) zinc acetate 50 mg (zinc) capsule 50 mg PO DAILY 01/1001/10/25 08:00 History (Galzin) 50 mg naproxen 500 mg tablet 500 mg PO BID PRN PRN pain 0 02/09/25 Unknown History oxycodone 5 mg capsule 5 mg PO Q6H PRN PRN pain Unknown History Allergy/AdvReac Type Severity Reaction Status Date / Time Latex, Natural Rubber Allergy Mild Verified 02/09/25 13:43 simvastatin (From Zocor) Allergy Mild Verified 02/09/25 13:43 guaifenesin (From Robitussin) Allergy Unknown Verified 02/09/25 13:43 Penicillins Allergy Anaphylaxis Verified 02/09/25 13:43 Sulfa (Sulfonamide Allergy Unknown Verified 02/09/25 13:43 Antibiotics) Family History Mother Colon cancer Father Colon cancer Sister Breast cancer Diabetes CVA (cerebral vascular accident) Cervical cancer Brother Heart disease Daughter COPD (chronic obstructive pulmonary disease) Son Diabetes Surgical History History of cataract extraction History of amputation of right great toe History of appendectomy history of left arm surgery history of hand reconstruction Social History Smoking Status: Never smoker Vital Signs Vital Signs Vital Signs: Weight Weight: 137 lb 8 oz Body Mass Index (BMI) 25.1 Physical Exam Const alert, oriented x3, no apparent distress, average body habitus and well nourished Constitutional Narrative: The patient's BMI is 25.1. General Appearance: cooperative, comfortable, well kempt and well developed Orientation / Consciousness: awake, oriented to person, oriented to place and oriented to time Exam Limitations: no limitations HEENT normocephalic and head/scalp atraumatic Head and Scalp: normal to inspection, normocephalic and atraumatic Face and Sinus: normal facial exam Nose: external nose normal External Ear: external ears normal Eyes EOMs intact bilaterally General Eye: normal appearance of both eyes Resp normal respiratory effort, normal air movement, no retractions and no use of accessory muscles Effort and Inspection: able to speak in complete sentences Extremity no calf tenderness General Extremity: Negative for clubbing or cyanosis Skin Wound Narrative: An ulceration is noted on the patient's distal left lateral calf. The base of the ulceration demonstrates a large amount of yellow, nonviable, and devitalizedtissue. Dimensions are documented elsewhere. Ulcer dimensions are well beveled. There is a rim of erythema, suggestive of cellulitis. The ulce ration extends through all layers of the dermis and into the subcutaneous tissues. Neuro oriented x3, CN's II-XII intact bilaterally, moves all extremities, no focal motor deficits and no sensory deficits noted Sensorium / Orientation: awake, alert, oriented to person, oriented to place andoriented to time Speech: speech normal Psych Appearance: grossly normal and appropriate Attitude: calm Activity / Motor Behavior: appropriate eye contact Speech: normal speech Mood & Affect: euthymic mood Thought Process: normal thought process Thought Content: normal thought content Attention / Concentration: attention grossly intact Debridement Note Debridement Note Wound debrided: Distal left lateral calf ulceration Laterality: Left Type of Debridement: Excisional debridement Anesthesia Used: 5% Lidocaine Gel and Cetacaine Depth: Down to and including healthy tissue and in the subcutaneous layer Percentage of wound debrided: 100 Instrument Used: 5mm curette Severity: Fat Layer Exposed Amount of bleeding with debridement: Mild Bleeding Controlled with: Compression and gauze Patient tolerated procedure: Patient tolerated procedure well Debridement Free Text: Despite the use of lidocaine gel and Cetacaine spray, patient experienced significant pain and discomfort during the debridement process. Because of the associated terese-ulcer erythema, a swab culture was obtained for aerobic and anaerobic bacterial growth. Post-Debridement Measurements and Additional Note: Post-Debridement Measurements/Treatment - Nurse 1 - General Ulcer Assessment Start: 02/09/25 13:31 Freq: Status: Active Protocol: .[place] Activity Type Activity Date Activity User E-sign Co-sign Detail Recorded Client Recorded Date Recorded By Document 02/09/25 13:31 [id number] 02/09/25 13:40 02/09/25 13:31 - Today's Visit Information Type of service Nurse-only Visit Arrival Mode Ambulatory Patient Identification Verified (Name & Yes ) Height and Weight Height 5 ft 2 in Weight 137 lb 8 oz Weight in Pounds 137.5 lbs Weight Measurement Method Estimated by Patient Body Mass Index (BMI) 25.1 BMI Classification Overweight Vital Signs Temperature (97.8 F-99.1 F) 97.7 F L Temperature Source Temporal Pulse Rate (60-100) 72 Pulse Location Monitor Respiratory Rate (12-18) 16 Respiratory rate source Observation Oxygen Delivery Method Room Air Blood Pressure (90/60-120/80) 150/88 H Blood Pressure Mean 108 Source Monitor Position Semi-Fowlers Blood Pressure Location Left Arm History Since Last Visit- (Skip if this is Patient's initial visit) Left Footwear Regular Shoe Right Footwear Regular Shoe Pain Scale: 0-10 Numeric Is Patient Pain Free? Yes Communication Assessment Preferred language French Intensive Care Medicine Specialist Required No Able to Read Yes Able to Write Yes Right Hearing Abillity Use of Hearing Aid Left Hearing Abillity Use of Hearing Aid Visual Assistive Devices Glasses Teaching Assessment Preferences Verbal,Written, Demonstration Barriers to Learning None Readiness To Learn Excellent Willingness to Engage in Self Management High Activies Readiness to Engage in Self Management High Activities Anxiety Level Calm Cooperation Cooperative Perception Coherent Interest in Health Problem Asks Questions Education Importance Acknowledges Need Does Patient Smoke tobacco or other No substances Smoking Status Never smoker Is Patient Diabetic No Functional Assessment Recent Decline in Ability to Perform Denies Any Declines Culture/Jewish/Welder Tech Cultural/Jewish Needs that may affect No Treatment Plan Would you allow our hospital director sales and trade marketing to No meet you for the purpose of spiritual/ emotional support? 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 No WC - Nurse 1 - General Ulcer Measurement Start: 02/09/25 13:31 Freq: Status: Active Protocol: Activity Type Activity Date Activity User E-sign Co-sign Detail Recorded Client Recorded Date Recorded By Document 02/09/25 13:31 [id number] 02/09/25 13:40 02/09/25 13:31 Wound Center Nurse 1 #1 LT LAT LE -Current Size (cm) - Length 2 -Current Size (cm) - Width 1 -Current Size (cm) - Depth 0.1 -Total Square Cm 2 -Date of Last Picture (Recall this 02/09/25 field) -Photo Taken Yes -Exudate Amt None Present -Wound Margin Distinct, Outline Attached -Granulation Amt Small (1-33%) -Granulation Quality [place] -Necrosis Amt Large (67-100%) -Necrotic Tissue Type Adherent Slough -Texture (Terese-wound Skin Appearance) Assessed -Moisture (Terese-wound Skin Appearance) Assessed -Color (Terese-wound Skin Appearance) Assessed, Erythema, Hemosiderin Staining -Temperature (Terese-wound Skin No Abnormality Appearance) (Pt Warm) -Tenderness on Palpation (Terese-wound No Skin Appearance) -Ulcer Cleansing Soap and Water -Foul Odor after Cleansing No -Anesthetic Used 5% Lidocaine Gel Left Calf (cm) 34.5 Left Ankle (cm) 21 - Nurse 2 - General Ulcer CM Notes Start: 02/09/25 13:31 Freq: Status: Active Protocol: Activity Type Activity Date Activity User E-sign Co-sign Detail Recorded Client Recorded Date Recorded By Document 02/09/25 14:05 [id number] 02/09/25 14:19 02/09/25 14:05 Wound Center Nurse 2 #1 LT LAT LE -Time 14:06 -Correct Patient Yes -Correct Side, Site, Position Yes -Correct Procedure Yes -Procedure Performed Yes -Type of Procedure Debridement -Clinical Debridement Subcutaneous -Tissue Removed Subcutaneous -Post Debridement (cm) - Length 2.0 -Post Debridement (cm) - Width 1.6 -Post Debridement (cm) - Depth 0.1 -Total Square (Post) (cm) 3.20 -Area of Debridement (cm) - Length 2.0 -Area of Debridement (cm) - Width 1.6 -Total Square (Area) (cm) 3.20 -Tunneling No -Undermining/Tunneling No -Circular Undermining No -Wound/Ulcer Outcome Not Healed -Ulcer Cleansing Rinsed/ Irrigated with Saline -Foul Odor after Cleansing No -Bioengineered Tissue No -Bleeding Controlled with Pressure -Treatment Response Procedure Tolerated Well -Offloading No -Debridement - Subq, 1st 20sq cm Yes Pain Scale: 0-10 Numeric Is Patient Pain Free? Yes - Nurse 3 - General Ulcer D/C NN Start: 02/09/25 13:31 Freq: Status: Active Protocol: Activity Type Activity Date Activity User E-sign Co-sign Detail Recorded Client Recorded Date Recorded By Document 02/09/25 14:41 [facility] [id number] 02/09/25 14:42 [facility] 02/09/25 14:41 Wound Care Center Nurse 3 #1 LT LAT LE -Ulcer Cleansing Rinsed/ Irrigated with Saline -Foul Odor after Cleansing No -Other Dressing HYDROGEL -Primary Dressing Covered/Secured with Dry Gauze & Roll Gauze -Other Covering DRSG PER MT RN -Wound Comment(s) PT WILL BE PICKING UP SANTYL Treatment Response Procedure Tolerated Well Pain Scale: 0-10 Numeric Is Patient Pain Free? Yes - Visit Discharge Discharge Condition Stable Ambulatory Status Ambulatory Transportation Private Auto Lab / Micro Data Attestation: I reviewed the patient's lab results. Labs: Laboratory Tests 01/10/25 07:57 WBC 5.5 Hgb 13.9 Hct 41.4 Plt Count 238 Sodium 142 Potassium 3.9 Chloride 110 H Carbon Dioxide 22.2 BUN 21 H Creatinine 0.87 Glucose 91 Calcium 9.4 Total Bilirubin 0.25 AST 24 ALT 11 Alkaline Phosphatase 107 H Total Protein 6.8 Albumin 3.8 Charges/Coding Multi Select Codes Visit Charges Office Visit/Consults: 15318 OV L4 New 45 min Integumentary Integumentary CPT Codes: 77337 Saba subq tissue 20 sq cm/< Assessment/Plan Assessment/Plan (1) Non-pressure chronic ulcer of left lower leg with fat layer exposed: CODE(S): L97.922 - Non-pressure chronic ulcer of unspecified part of left lower leg with fat layer exposed (2) Lumbar degenerative disc disease: CODE(S): M51.369 - Other intervertebral disc degeneration, lumbar region without mention of lumbar back pain or lower extremity pain (3) Diverticulosis: CODE(S): K57.90 - Diverticulosis of intestine, part unspecified, without perforation or abscess without bleeding (4) Hiatal hernia with GERD without esophagitis: CODE(S): K44.9 - Diaphragmatic hernia without obstruction or gangrene; K21.9 - Gastro-esophageal reflux disease without esophagitis (5) History of cataract extraction: CODE(S): Z98.49 - Cataract extraction status, unspecified eye (6) History of amputation of right great toe: CODE(S): Z98.890 - Other specified postprocedural states; Z89.411 - Acquired absence of right greattoe (7) History of appendectomy: CODE(S): Z98.890 - Other specified postprocedural states; Z90.49 - Acquired absence of other specified parts of digestive tract (8) history of left arm surgery: (9) history of hand reconstruction: (10) HUMPHRIES (dyspnea on exertion): CODE(S): R06.09 - Other forms of dyspnea (11) Stage 1 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 The ulceration resulted from trauma which occurred several months ago. Patient has been treated with several courses of oral antibiotics, includingcephalexin and doxycycline. She has recently been using Dreft soaks topically on a daily basis. An excisional debridement has been performed today, and swab cultures were obtained for aerobic and anaerobic bacterial growth. The ulceration demonstrates significant devitalized and nonviable tissue. We are to implement the use of collagenase Santyl topically, which will be applied on a daily basis. The patient has been instructed in appropriate means of application. She has been provided a coupon to mitigate the cost of the collagenase Santyl. Patient has been advised to optimize her nutritionalintake. She has also been advised to keep her lower extremities elevated is much as possible, and to avoid prolonged idle sitting, in an effort to avoid swelling in her lower extremities. It is felt that the Dreft soaks have been unproductive, a matter which has beenconveyed to the patient. The patient is to return in 1 week for reevaluation. The results of her swab culture will be awaited. Total time: 48 minutes 02/11/25 [id number] Cosigner Signature (if applicable): CC: ~ Signed [facility]06-10-2025 NoteHNO ID: [id number] Author: DA CASTRO MD Service: ? Author Type: Physician Type: Progress Notes Filed: 02/01/2025 09:42 Note Text: Reason for Visit Follow up HPI Jenni Strickland is a 85-year-old female with a history of back fracture, presenting with a leg ulcer. Jenni reports the development of a leg ulcer following a back injection. 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 However, after receiving an injection for her back, the area became sore and eventually ulcerated. She notes that the ulcer started draining and opened up significantly after the injection. Approximately two weeks ago, her grandson observed that the ulcer had increased in size, prompting her to seek medical attention. She was unable to see her pre billing clinician due to scheduling conflicts and was referred to Dr. Barton, who advised her to seek further care for the ulcer. She has been managing the ulcer at home but reports significant pain and difficulty sleeping. She denies taking naproxen for pain management. Jenni has a history of a back fracture, for which she received an injection. She was prescribed an antibiotic post-injection but is unsure of the type. She has known allergies to penicillin and sulfa. She also has a history of multiple rib fractures and a hand injury requiring five surgeries. She has been taking Motrin 500 mg four times a day for pain management but is concerned about the potential for addiction. She also reports constipation and is hesitant to take Miralax due to concerns about dependency. She follows a diet rich in fruits and vegetables but avoids seeds due to gastritis. She notes that cheese exacerbates her constipation. Social History Tobacco Use Smoking status: Never Smokeless tobacco: Never Vaping Use Vaping status: Never Used Substance Use Topics Alcohol use: No Drug use: No Past medical history, appointments, medications, allergies reviewed. Pertinent Lab/Diagnostic Studies are reviewed and discussed today Current Outpatient Medications: naproxen (NAPROSYN) 500 mg tablet esomeprazole magnesium (NEXIUM ORAL) furosemide (LASIX) 20 mg tablet lisinopril (ZESTRIL) 20 mg tablet amLODIPine (NORVASC) 2.5 mg tablet umeclidinium (INCRUSE ELLIPTA) 62.5 mcg/actuation inhaler polyethylene glycol 3350 (MIRALAX ORAL) Lactobacillus acidophilus (FLORAJEN ACIDOPHILUS) 20 billion cell cap famotidine (PEPCID) 20 mg tablet cyanocobalamin (VITAMIN B-12) 1,000 mcg tab fluticasone (FLONASE) 50 mcg/actuation nasal spray calcium carbonate ([id number])(TUMS 500 MG CHEWABLE TAB) POTASSIUM GLUCONATE 595 MG (99 MG) TAB MAGNESIUM 250 MG TAB calcium carbonate/vitamin d3(CALCIUM 600 WITH VITAMIN D3 600 MG (1,500)-200 UNIT TAB) omeprazole (PRILOSEC) 20 mg capsule estradiol (ESTRACE) 0.01 % (0.1 mg/gram) vaginal cream Health Maintenance DTaP,Tdap,Td Vaccine(1 - Tdap) Shingrix Vaccine(2 of 3) RSV Vaccine(1 - 1-dose 75+ series) Bone Density Screening Depression Screening Anxiety Screening@ Review Of Systems Constitutional: (+) fatigue, (+) insomnia Skin: (+) leg wound drainage Gastrointestinal: (+) constipation Musculoskeletal: (+) leg pain Physical Exam BP 159/86 Pulse 77 Resp 16 Wt 62.6 kg (138 lb) SpO2 99% BMI 25.24 kg/m? GENERAL: NAD, alert and oriented. SKIN: Unremarkable, no rash or skin lesions. HEAD: Normocephalic. EYES: PERRLA, EOMI, conjunctiva clear. EARS: External ears normal, canals clear, TM's normal. LUNGS: Clear to auscultation bilaterally, no wheezes/rhonchi/rales. HEART: Regular rate and rhythm, no murmurs. No ectopy. EXTREMITIES: - Right lower extremity: Ulcer measuring 2 cm x 1 cm, oval-shaped, with slough present. No erythema or streaking noted. NEURO: Awake, alert and oriented x3, cranial nerves II-XII grossly intact, normal gait, no involuntary motions. Assessment and Plan 1. Ulcer of left lower extremity with fat layer exposed ([facility]) (L97.922) Ulcer on the left lower extremity measuring approximately 2 cm x 1 cm with significant slough, exposing the fat layer. No signs of infection or erythema. Ulcer developed after a back injection; patient has a history of allergies to penicillin and sulfa antibiotics. - Referred to [facility] for evaluation and debridement. - Faxed consult to the wound center. 2. Constipation, unspecified constipation type (K59.00) Patient reports constipation and concerns about using Miralax regularly. - Advised daily use of Miralax. - Recommended Metamucil or psyllium husk to bulk up stool. 3. Essential hypertension (I10) Blood pressure reading today was elevated at 148/81 mmHg, likely secondary to pain. - Continue current antihypertensive medication. - Monitor blood pressure regularly. Voice recognition software was used to compose this office note. Please excuse any un (more content not included)...[facility]06-10-2025 History of Present illness Narrative* Da Castro MD - 02/01/2025 9:39 AM EDT Reason for Visit Follow up HPI Jenni Strickland is a 85-year-old female with a history of back fracture, presenting with a leg ulcer. Jenni reports the development of a leg ulcer following a back injection. 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 However, after receiving an injection for her back, the area became sore and eventually ulcerated. She notes that the ulcer started draining and opened up significantly after the injection. Approximately two weeks ago, her grandson observed that the ulcer had increased in size, prompting her to seek medical attention. She was unable to see her pre billing clinician due to scheduling conflicts and was referred toDr. Barton, who advised her to seek further care for the ulcer. She has been managing the ulcer at home but reports significant pain and difficulty sleeping. She denies taking naproxen for pain management. Jenni has a history of a back fracture, for which she received an injection. She was prescribed an antibiotic post-injection but is unsure of the type. She has known allergies to penicillin and sulfa. She also has a history of multiple rib fractures and a hand injury requiring five surgeries. She has been taking Motrin 500 mg four times a day for pain management but is concerned about the potentia l for addiction. She also reports constipation and is hesitant to take Miralax due to concerns about dependency. She follows a diet rich in fruits and vegetables but avoids seeds due to gastritis. She notes that cheese exacerbates her constipation. Social History Tobacco Use Smoking status: Never Smokeless tobacco: Never Vaping Use Vaping status: Never Used Substance Use Topics Alcohol use: No Drug use: No Past medical history, appointments, medications, allergies reviewed. Pertinent Lab/Diagnostic Studies are reviewed and discussed today Current Outpatient Medications: naproxen (NAPROSYN) 500 mg tablet esomeprazole magnesium (NEXIUM ORAL) furosemide (LASIX) 20 mg tablet lisinopril (ZESTRIL) 20 mg tablet amLODIPine (NORVASC) 2.5 mg tablet umeclidinium (INCRUSE ELLIPTA) 62.5 mcg/actuation inhaler polyethylene glycol 3350 (MIRALAX ORAL) Lactobacillus acidophilus (FLORAJEN ACIDOPHILUS) 20 billion cell cap famotidine (PEPCID) 20 mg tablet cyanocobalamin (VITAMIN B-12) 1,000 mcg tab fluticasone (FLONASE) 50 mcg/actuation nasal spray calcium carbonate ([id number])(TUMS 500 MG CHEWABLE TAB) POTASSIUM GLUCONATE 595 MG (99 MG) TAB MAGNESIUM 250 MG TAB calcium carbonate/vitamin d3(CALCIUM 600 WITH VITAMIN D3 600 MG (1,500)-200 UNIT TAB) omeprazole (PRILOSEC) 20 mg capsule estradiol (ESTRACE) 0.01 % (0.1 mg/gram) vaginal cream Health Maintenance DTaP,Tdap,Td Vaccine(1 - Tdap) Shingrix Vaccine(2 of 3) RSV Vaccine(1 - 1-dose 75+ series) Bone Density Screening Depression Screening Anxiety Screening@ Review Of Systems Constitutional: (+) fatigue, (+) insomnia Skin: (+) leg wound drainage Gastrointestinal: (+) constipation Musculoskeletal: (+) leg pain Physical Exam BP 159/86 Pulse 77 Resp 16 Wt 62.6 kg (138 lb) SpO2 99% BMI 25.24 kg/m GENERAL: NAD, alert and oriented. SKIN: Unremarkable, no rash or skin lesions. HEAD: Normocephalic. EYES: PERRLA, EOMI, conjunctiva clear. EARS: External ears normal, canals clear, TM's normal. LUNGS: Clear to auscultation bilaterally, no wheezes/rhonchi/rales. HEART: Regular rate and rhythm, no murmurs. No ectopy. EXTREMITIES: - Right lower extremity: Ulcer measuring 2 cm x 1 cm, oval-shaped, with slough present. No erythemaor streaking noted. NEURO: Awake, alert and oriented x3, cranial nerves II-XII grossly intact, normal gait, no involuntary motions. Assessment and Plan 1. Ulcer of left lower extremity with fat layer exposed ([facility]) (L97.922) Ulcer on the left lower extremity measuring approximately 2 cm x 1 cm with significant slough, exposing the fat layer. No signs of infection or erythema. Ulcer developed after a back injection; patient has a history of allergies to penicillin and sulfa antibiotics. - Referred to [facility] for evaluation and debridement. - Faxed consult to the wound center. 2. Constipation, unspecified constipation type (K59.00) Patient reports constipation and concerns about using Miralax regularly. - Advised daily use of Miralax. - Recommended Metamucil or psyllium husk to bulk up stool. 3. Essential hypertension (I10) Blood pressure reading today was elevated at 148/81 mmHg, likely secondary to pain. - Continue current antihypertensive medication. - Monitor blood pressure regularly. Voice recognition software was used to compose this office note. Please excuse any unintended typographical errors. Recording using ambient [email or web address] software for draft documentation of the visit was discussed with the patient/authorized sales representative livestock; all questions welcomed and answered. Patient/authorized sales representative livestock agreed to proceed Da Castro [facility] Inst[facility]* Patient Instructions* Da Castro MD - 02/01/2025 9:03 AM EDT We discussed the wound on your leg: - I am referring you to the wound care center at [facility] for further evaluation and treatment. The wound measures 2 cm by 1 cm, is oval- shaped, and contains slough ( tissue) below the skin in the fat layer. It needs to be debrided and treated with a specific regimen, which the wound care team will provide. - We have faxed the referral to the wound care center. Please try to get in today if possible. - Continue to monitor the wound for any signs of infection, such as redness, swelling, or streaking. At this time, there is no evidence of spreading infection. We discussed your constipation: - You may take Miralax daily to help with constipation. It is not habit-forming and safe for regular use. - You can also try Metamucil or psyllium husk to bulk up your stool. - Continue eating fruits and vegetables, but avoid foods with seeds if they aggravate your gastritis. Limit cheese intake, as it may contribute to constipation. We discussed your blood pressure: - Your blood pressure today was slightly elevated, likely due to pain and activity. Continue monitoring it at home and let us know if it remains consistently high. If you have any additional concerns or if your symptoms worsen, please contact our office. documented [facility] NoteHNO ID: [id number] Author: GUY BARTON MD Service: ? Author Type: Physician Type: Progress Notes Filed: 01/24/2025 09:44 Note Text: This note was created using RealDeckter. Subjective Patient presents with: Derm Problem Jenni Strickland is a 85 year old female. Recording using [employer] software for draft documentation of the visit was discussed with the patient/authorized sales representative livestock; all questions welcomed and answered. Patient/authorized sales representative livestock agreed to proceed Jenni is a 85-year-old female, with a history of L1 compression fracture, presenting for evaluation of a leg ulcer. Jenni reports the onset of a leg ulcer following a minor trauma a couple of months ago when she bumped her leg on a car door. Initially, there was no break in the skin, and she thought everything was fine. However, during a massage session in early November, her massage therapist noticed swelling and erythema on the leg, prompting her to seek medical attention. At that time, the wound was small, approximately the size of her little fingernail, and she was advised to visit a walk-in clinic or the ER. Jenni delayed seeking immediate care due to her 's stage 4 cancer and her responsibilities at home. She later developed severe back pain while assisting her with yard work, leading to a visit to the ER, where she was diagnosed with an L1 compression fracture. She was referred to Dr. Dixon for pain management, and received an injection for pain management and was prescribed cephalexin, which she completed for 1 week. She is allergic to penicillin and sulfa. Following the antibiotic treatment, Jenni noticed that the previously small wound on her leg had opened up, was draining, and had increased in size. She reports significant pain, particularly at night, which has been affecting her sleep. The wound has been progressively worsening, and she has been unable to manage it effectively due to her back pain. She denies fever but reports difficulty walking and performing daily activities. Jenni is currently taking an opioid medication for back pain, prescribed by her pain physician, and expresses concerns about potential addiction. She has been using Tylenol for pain management but reports it is ineffective. She denies a history of smoking or alcohol use and reports being always cold all over, including her feet, but denies cyanosis. She has a history of good pedal pulses as per her sort worker. Review of Systems Per HPI. 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 furosemide (LASIX) 20 mg tablet Take 1 tablet by mouth once daily. lisinopril (ZESTRIL) 20 mg tablet Take 1 tablet by mouth every afternoon. amLODIPine (NORVASC) 2.5 mg tablet Take 1 tablet by mouth once daily. estradiol (ESTRACE) 0.01 % (0.1 mg/gram) vaginal cream Use 1 g vaginally one time a week. umeclidinium (INCRUSE ELLIPTA) 62.5 mcg/actuation inhaler Inhale 1 Puff as instructed once daily. polyethylene glycol 3350 (MIRALAX ORAL) Take 17 g by mouth as needed (constipation). Lactobacillus acidophilus (FLORAJEN ACIDOPHILUS) 20 billion cell cap Take 460 mg by mouth once daily. famotidine (PEPCID) 20 mg tablet Take 1 tablet by mouth at bedtime as needed. cyanocobalamin (VITAMIN B-12) 1,000 mcg tab Take 1 tablet by mouth once daily. fluticasone (FLONASE) 50 mcg/actuation nasal spray Use 2 Sprays in each nostril once daily. calcium carbonate ([id number])(TUMS 500 MG CHEWABLE TAB) Take 1,000 mg by mouth two times a day as needed (GERD). POTASSIUM GLUCONATE 595 MG (99 MG) TAB Take 595 mg by mouth once daily. MAGNESIUM 250 MG TAB Take 250 mg by mouth once daily. calcium carbonate/vitamin d3(CALCIUM 600 WITH VITAMIN D3 600 MG (1,500)-200 UNIT TAB) Take 1 tablet by mouth once daily. doxycycline (VIBRA-TABS) 100 mg tablet Take 1 tablet by mouth two times a day for 7 days. naproxen (NAPROSYN) 500 mg tablet Take 1 tablet by mouth two times a day as needed for pain (for pain/inflammation). Take with food. omeprazole (PRILOSEC) 20 mg capsule Take 1 capsule by mouth daily before breakfast. 1/2 hr before meal. (Patient not taking: Reported on (more content not included)...[facility]06-02-2025 History of Present illness Narrative* Guy Barton MD - 01/24/2025 9:38 AM EDT This note was created using RealDeckter. Subjective Patient presents with: Derm Problem Jenni Strickland is a 85 year old female. Recording using [employer] software for draft documentation of the visit was discussed with the patient/authorized sales representative livestock; all questions welcomed and answered. Patient/authorized sales representative livestock agreed to proceed Jenni is a 85-year-old female, with a history of L1 compression fracture, presenting for evaluationof a leg ulcer. Jenni reports the onset of a leg ulcer following a minor trauma a couple of months ago when she bumped her leg on a car door. Initially, there was no break in the skin, and she thought everything wasfine. However, during a massage session in early November, her massage therapist noticed swelling and erythema on the leg, prompting her to seek medical attention. At that time, the wound was small, approximately the size of her little fingernail, and she was advised to visit a walk-in clinic or the ER. Jenni delayed seeking immediate care due to her 's stage 4 cancer and her responsibilities at home. She later developed severe back pain while assisting her with yard work, leading to a visit to the ER, where she was diagnosed with an L1 compression fracture. She was referred to Dr. Dixon for pain management, and received an injection for pain management and was prescribed cephalexin, which she completed for 1 week. She is allergic to penicillin and sulfa. Following the antibiotic treatment, Jenni noticed that the previously small wound on her leg had opened up, was draining, and had increased in size. She reports significant pain, particularly at night, which has been affecting her sleep. The wound has been progressively worsening, and she has been unable to manage it effectively due to her back pain. She denies fever but reports difficulty walking and performing daily activities. Jenni is currently taking an opioid medication for back pain, prescribed by her pain physician, andexpresses concerns about potential addiction. She has been using Tylenol for pain management but reports it is ineffective. She denies a history of smoking or alcohol use and reports being always cold all over, including her feet, but denies cyanosis. 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 Review of Systems Per HPI. 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 furosemide (LASIX) 20 mg tablet Take 1 tablet by mouth once daily. lisinopril (ZESTRIL) 20 mg tablet Take 1 tablet by mouth every afternoon. amLODIPine (NORVASC) 2.5 mg tablet Take 1 tablet by mouth once daily. estradiol (ESTRACE) 0.01 % (0.1 mg/gram) vaginal cream Use 1 g vaginally one time a week. umeclidinium (INCRUSE ELLIPTA) 62.5 mcg/actuation inhaler Inhale 1 Puff as instructed once daily. polyethylene glycol 3350 (MIRALAX ORAL) Take 17 g by mouth as needed (constipation). Lactobacillus acidophilus (FLORAJEN ACIDOPHILUS) 20 billion cell cap Take 460 mg by mouth once daily. famotidine (PEPCID) 20 mg tablet Take 1 tablet by mouth at bedtime as needed. cyanocobalamin (VITAMIN B-12) 1,000 mcg tab Take 1 tablet by mouth once daily. fluticasone (FLONASE) 50 mcg/actuation nasal spray Use 2 Sprays in each nostril once daily. calcium carbonate ([id number])(TUMS 500 MG CHEWABLE TAB) Take 1,000 mg by mouth two times a day as needed (GERD). POTASSIUM GLUCONATE 595 MG (99 MG) TAB Take 595 mg by mouth once daily. MAGNESIUM 250 MG TAB Take 250 mg by mouth once daily. calcium carbonate/vitamin d3(CALCIUM 600 WITH VITAMIN D3 600 MG (1,500)-200 UNIT TAB) Take 1 tabletby mouth once daily. doxycycline (VIBRA-TABS) 100 mg tablet Take 1 tablet by mouth two times a day for 7 days. naproxen (NAPROSYN) 500 mg tablet Take 1 tablet by mouth two times a day as needed for pain (for pain/inflammation). Take with food. omeprazole (PRILOSEC) 20 mg capsule Take 1 capsule by mouth daily before breakfast. 1/2 hr before meal. (Patient not taking: Reported on 01/24/2025) No current facility-administered medications for this visit. Objective BP 144/86 Pulse 92 Temp 37.1 C (98.8 F) (Temporal) Resp 20 Wt 62.4 kg (137 lb 9.1 oz) BMI25.16 kg/m Physical Exam Constitutional: General: She is not in acute distress. Appearance: She is not ill-appearing. Cardiovascular: Pulses: Normal pulses. Pulmonary: Effort: Pulmonary effort is normal. Musculoskeletal: Right lower leg: No edema. Left lower leg: No edema. Skin: Comments: 2 x 1 cm left leg abrasion/ulcer with mild marginal erythema and swelling. No drainage. Tender. No lymphangitis. Neurological: Mental Status: She is alert. Assessment and Plan 1. Ulcer of left lower extremity, limited to breakdown of skin (HCC) - ICD9: 707.10, ICD10: L97.921 - DOXYCYCLINE HYCLATE 100 MG TABLET - NAPROXEN 500 MG TABLET Discussed medication dosage, usage, goals of therapy, and side effects. 2. Cellulitis of left lower extremity - ICD9: 682.6, ICD10: L03.116 - See above. We discussed your leg ulcer: - You will start taking doxycycline (antibiotic) to treat the cellulitis in your leg. This prescription has been sent to the [facility] on [address] in [facility]. - Please take doxycycline at least one hour apart from any calcium-containing products, such as calcium tablets. - You should see improvement within a few days. If your symptoms worsen or do not improve, please contact our office. - Keep the wound covered and clean. You may continue using the shower wand to rinse the area gently. - Follow up with Dr. Castro or Mona Mancilla in one week to monitor your progress. My nurse will schedule this appointment for you. We discussed your pain management: - I have prescribed naproxen, a non-steroidal anti-inflammatory medication, to help manage your pain. This prescription has also been sent to the [facility] on [address] in [facility]. - Take naproxen with food to prevent stomach irritation or bleeding. - If you experience any significant stomach discomfort or other side effects, please let us know. Additional instructions: - Please monitor your symptoms closely. If the wound becomes significantly worse, you develop a fever, or you experience any new concerning symptoms, contact our office immediately. - Continue to avoid activities that may strain your back or worsen your pain. 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 - Attend your follow-up appointment with Dr. Castro or Mona Mancilla in one week. If you have any questions or concerns before your follow-up, please contact our office. Guy Barton MD documented in this encounterWex[facility] Center06-02-2025 Instructions* Patient Instructions* Guy Barton MD - 01/24/2025 9:34 AM EDT Keep area clean and dry. Change dressing if becomes wet or soiled. Wet to dry dressing. documented in this encounterWexner [facility] Center05-27-2025 Telephone encounter Note * Telephone Encounter - Marleni Isbell - 2025 2:46 PM EDT Patient called back and scheduled for 02/03 Marleni Isbell [facility]05-[facility] Miscellaneous Notes* Telephone Encounter - Marleni Isblel - 2025 2:46 PM EDT Patient called back and scheduled for 02/03 Marleni Isbell * Telephone Encounter - Marleni Isbell - 2025 12:52 PM EDT Tried calling patient twice. Unable to hear due to a bad phone connection. Marleni Isbell * Telephone Encounter - Sandra Thrasher LPN - 2025 10:[address] Castro's office called stating that Dr. Castro placed Reclast order. Michael/Becka- please check order and convert to [place] if appropriate, then send to PSS for scheduling. Sandra Thrasher LPN documented in this encounterWexner Medical Center05-27-2025 Telephone encounter Note * Telephone Encounter - Marleni Isbell - 2025 12:52 PM EDT Tried calling patient twice. Unable to hear due to a bad phone connection. Marleni Isbell [facility]05-[facility] Telephone encounter Note* Telephone Encounter - Sandra Thrasher LPN - 2025 10:[address] Castro's office called stating that Dr. Castro placed Reclast order. Michael/Becka- please check order and convert to [place] if appropriate, then send to PSS for scheduling. Sandra Thrasher LPN [facility]05-27-[facility] Instructions* Patient Instructions* Da Castro MD - 2025 10:53 AM EDT We discussed your recent back injury and osteoporosis: - You have a compression fracture in your L1 vertebra. Continue wearing your back brace and taking Extra Strength Tylenol as needed for pain relief. Avoid ibuprofen, as it does not agree with you. - I have ordered a zoledronic acid infusion (Reclast) to help strengthen your bones and prevent further deterioration. Please contact the infusion center at [facility] to confirm they have received theorder. - Before starting the infusion, we need to check your Vitamin B12, PTH, Vitamin D, and phosphorus levels. Please complete these lab tests as soon as possible. - I recommend reviewing the pamphlet I provided on osteoporosis for guidance on calcium and VitaminD intake. You should continue consuming calcium-rich foods, such as milk and eggs, and supplement with additional calcium and Vitamin D as needed. We discussed your acid reflux: - Since you have a history of acid reflux, we decided against restarting Fosamax, as it may worsen your symptoms. Instead, we will proceed with the zoledronic acid infusion. We discussed your bone health: - Your last bone density scan (DEXA) was in 2017. It has been over 8 years, so it is time to reassess your bone health. I will arrange for a new DEXA scan to evaluate your current bone density. Please follow up with me after completing your labs and infusion to discuss your progress and any further steps. documented in this encounterWexner Medical Center05-27-2025 NoteHNO ID: [id number] Author: DA CASTRO MD Service: ? Author Type: Physician Type: Progress Notes Filed: 01/27/2025 15:53 Note Text: Reason for Visit Follow up vertebral fracture DEANGELO Arteaga is a 85-year-old female, with a history of osteoporosis and GERD, presenting for follow-up after sustaining an L1 compression fracture. 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 She felt a sudden pain in her spine during the activity but did not seek medical attention until the following day. She initially visited a walk-in clinic, where she was referred to the emergency department. A CT scan confirmed the L1 compression fracture. She was advised to follow up within a week but missed the appointment. She reports that the fracture has been painful but is gradually improving. She has been managing the pain with extra-strength Tylenol, as she cannot tolerate ibuprofen. She is also wearing a brace and being cautious with her activities. She mentions that a physician recommended a procedure involving the injection of a substance, possibly cement or glue, to prevent further deterioration of the fracture. Jenni has a history of osteoporosis and was previously on Fosamax, which was discontinued in 2017. She also has a history of GERD, which she manages with dietary modifications. She reports that her GERD symptoms are well-controlled as long as she avoids greasy and spicy foods. She denies any current issues with GERD. Social History Tobacco Use Smoking status: Never Smokeless tobacco: Never Vaping Use Vaping status: Never Used Substance Use Topics Alcohol use: No Drug use: No Past medical history, appointments, medications, allergies reviewed. Pertinent Lab/Diagnostic Studies are reviewed and discussed today Current Outpatient Medications: esomeprazole magnesium (NEXIUM ORAL) furosemide (LASIX) 20 mg tablet lisinopril (ZESTRIL) 20 mg tablet amLODIPine (NORVASC) 2.5 mg tablet naproxen (NAPROSYN) 500 mg tablet estradiol (ESTRACE) 0.01 % (0.1 mg/gram) vaginal cream umeclidinium (INCRUSE ELLIPTA) 62.5 mcg/actuation inhaler polyethylene glycol 3350 (MIRALAX ORAL) Lactobacillus acidophilus (FLORAJEN ACIDOPHILUS) 20 billion cell cap famotidine (PEPCID) 20 mg tablet cyanocobalamin (VITAMIN B-12) 1,000 mcg tab fluticasone (FLONASE) 50 mcg/actuation nasal spray calcium carbonate ([id number])(TUMS 500 MG CHEWABLE TAB) POTASSIUM GLUCONATE 595 MG (99 MG) TAB MAGNESIUM 250 MG TAB calcium carbonate/vitamin d3(CALCIUM 600 WITH VITAMIN D3 600 MG (1,500)-200 UNIT TAB) omeprazole (PRILOSEC) 20 mg capsule Health Maintenance DTaP,Tdap,Td Vaccine(1 - Tdap) Shingrix Vaccine(2 of 3) RSV Vaccine(1 - 1-dose 75+ series) Depression Screening Anxiety Screening@ Review Of Systems Gastrointestinal: (+) acid reflux Musculoskeletal: (+) back pain Physical Exam BP 135/77 Pulse 74 Ht 157.5 cm (5' 2) Wt 62.8 kg (138 lb 7.2 oz) SpO2 100% BMI 25.32 kg/m? GENERAL: NAD, alert and oriented SKIN: unremarkable, no rash or skin lesions. HEAD: normocephalic LUNGS: Clear to auscultation bilaterally, no wheezes/rhonchi/rales. HEART: Regular rate and rhythm, no murmurs. No ectopy. EXTREMITIES: Normal, No deformities, No skin discoloration, No edema. NEURO: Awake, alert and oriented x3, cranial nerves II-XII grossly intact, normal gait, no involuntary motions Imaging: (2017) Bone Density Scan (DEXA) CT Lumbar Spine: Compression fracture at L1 Assessment and Plan 1. Age-related osteoporosis with current pathological fracture, initial encounter (M80.00XA) Osteoporosis, unspecified osteoporosis type, unspecified pathological fracture presence (M81.0) Last DEXA scan was in 2017. Previously on Fosamax, discontinued after 7 years of use. Due to significant GI issues, including a hiatal hernia, oral bisphosphonates are not ideal. - Ordered labs: Vitamin B12, PTH, Vitamin D, and phosphorus levels. - Initiated zoledronic acid infusions; patient to confirm orders with the infusion center at [facility]. - Provided educational pamphlet on osteoporosis, including dietary recommendations for calcium and vitamin D supplementation. 2. Essential hypertension (I10) - bp is controlled. Cont current regimen 3. Vitamin D deficiency (E55.9) - vit d levels are normal now after replacement 4. Compression fracture of lumbar vertebra, unspecified lumbar vertebral level, initial encounter ([facility]) (S32.000A) Compression fracture at L1 confirmed by CT scan. Patient experiencing significant pain, managed with extra strength Tylenol and wearing a brace. - Continue current pain management with extra strength Tylenol. - Advised to avoid activities that may exacerbate the fracture. 5. Gastro-esophageal reflux disease without esophagitis (K21.9) Severe GERD, managed with dietary modifications. History of hiata (more content not included)...[facility]05-27-2025 History of Present illness Narrative* Da Castro MD - 2025 10:38 AM EDT Reason for Visit Follow up vertebral fracture HPI Jenni is a 85-year-old female, with a history of osteoporosis and GERD, presenting for follow-up after sustaining an L1 compression fracture. 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 She felt a sudden pain in her spine during the activity but did not seek medical attention until the following day. She initially visited a walk-in clinic, where she wasreferred to the emergency department. A CT scan confirmed the L1 compression fracture. She was advised to follow up within a week but missed the appointment. She reports that the fracture has been painful but is gradually improving. She has been managing the pain with extra-strength Tylenol, as she cannot tolerate ibuprofen. She is also wearing a brace and being cautious with her activities. She mentions that a physician recommended a procedure involving the injection of a substance, possibly cement or glue, to prevent further deterioration of the fracture. Jenni has a history of osteoporosis and was previously on Fosamax, which was discontinued in 2017. She also has a history of GERD, which she manages with dietary modifications. She reports that her GERD symptoms are well-controlled as long as she avoids greasy and spicy foods. She denies any current issues with GERD. Social History Tobacco Use Smoking status: Never Smokeless tobacco: Never Vaping Use Vaping status: Never Used Substance Use Topics Alcohol use: No Drug use: No Past medical history, appointments, medications, allergies reviewed. Pertinent Lab/Diagnostic Studies are reviewed and discussed today Current Outpatient Medications: esomeprazole magnesium (NEXIUM ORAL) furosemide (LASIX) 20 mg tablet lisinopril (ZESTRIL) 20 mg tablet amLODIPine (NORVASC) 2.5 mg tablet naproxen (NAPROSYN) 500 mg tablet estradiol (ESTRACE) 0.01 % (0.1 mg/gram) vaginal cream umeclidinium (INCRUSE ELLIPTA) 62.5 mcg/actuation inhaler polyethylene glycol 3350 (MIRALAX ORAL) Lactobacillus acidophilus (FLORAJEN ACIDOPHILUS) 20 billion cell cap famotidine (PEPCID) 20 mg tablet cyanocobalamin (VITAMIN B-12) 1,000 mcg tab fluticasone (FLONASE) 50 mcg/actuation nasal spray calcium carbonate ([id number])(TUMS 500 MG CHEWABLE TAB) POTASSIUM GLUCONATE 595 MG (99 MG) TAB MAGNESIUM 250 MG TAB calcium carbonate/vitamin d3(CALCIUM 600 WITH VITAMIN D3 600 MG (1,500)-200 UNIT TAB) omeprazole (PRILOSEC) 20 mg capsule Health Maintenance DTaP,Tdap,Td Vaccine(1 - Tdap) Shingrix Vaccine(2 of 3) RSV Vaccine(1 - 1-dose 75+ series) Depression Screening Anxiety Screening@ Review Of Systems Gastrointestinal: (+) acid reflux Musculoskeletal: (+) back pain Physical Exam BP 135/77 Pulse 74 Ht 157.5 cm (5' 2) Wt 62.8 kg (138 lb 7.2 oz) SpO2 100% BMI 25.32 kg/m GENERAL: NAD, alert and oriented SKIN: unremarkable, no rash or skin lesions. HEAD: normocephalic LUNGS: Clear to auscultation bilaterally, no wheezes/rhonchi/rales. HEART: Regular rate and rhythm, no murmurs. No ectopy. EXTREMITIES: Normal, No deformities, No skin discoloration, No edema. NEURO: Awake, alert and oriented x3, cranial nerves II-XII grossly intact, normal gait, no involuntary motions Imaging: (2017) Bone Density Scan (DEXA) CT Lumbar Spine: Compression fracture at L1 Assessment and Plan 1. Age-related osteoporosis with current pathological fracture, initial encounter (M80.00XA) Osteoporosis, unspecified osteoporosis type, unspecified pathological fracture presence (M81.0) Last DEXA scan was in 2017. Previously on Fosamax, discontinued after 7 years of use. Due to significant GI issues, including a hiatal hernia, oral bisphosphonates are not ideal. - Ordered labs: Vitamin B12, PTH, Vitamin D, and phosphorus levels. - Initiated zoledronic acid infusions; patient to confirm orders with the infusion center at [facility]. - Provided educational pamphlet on osteoporosis, including dietary recommendations for calcium and vitamin D supplementation. 2. Essential hypertension (I10) 3. Vitamin D deficiency (E55.9) 4. Compression fracture of lumbar vertebra, unspecified lumbar vertebral level, initial encounter ([facility]) (S32.000A) Compression fracture at L1 confirmed by CT scan. Patient experiencing significant pain, managed with extra strength Tylenol and wearing a brace. - Continue current pain management with extra strength Tylenol. - Advised to avoid activities that may exacerbate the fracture. 5. Gastro-esophageal reflux disease without esophagitis (K21.9) Severe GERD, managed with dietary modifications. History of hiatal hernia exacerbating symptoms. - Continue dietary management to control reflux symptoms. Voice recognition software was used to compose this office note. Please excuse any unintended typographical errors. Recording using ambient [email or web address] software for draft documentation of the visit was discussed with the patient/authorized sales representative livestock; all questions welcomed and answered. Patient/authorized sales representative livestock agreed to proceed Da Castro MD documented in this encounterWexner [facility] Center05-20-2025 Discharge summary [facility] Medical Records Department [address] [place] [address] Discharge Summary 01/11/25 1538 MR#: [id number] Acct: [id number] Name: JENNI STRICKLAND Rep #:[id number] : 1940 84 From: Jose David ochoa MD PCP: Dr. Da Castro MD Status:ADM I NO Location: [id number] Providers Date of Admission: 01/10/25 Primary Care Physician: Dr. Da Castro MD Consultations 01/10/25 16:52 Consult: Pain Management Routine Consulting Provider: Kavitha Renae Reason for Consult: L1 compression fracture EMERGENT Consult: No MD Notified: Yes Date Notified: 01/10/25 Time Notified: 16:53 Method of Notification: Verbal Reason For Visit: BACK PAIN Diagnosis Discharge Diagnosis (1) Lumbar compression fracture: Status: Acute Code(s): S32.000A - Wedge compression fracture of unspecified lumbar vertebra, initial encounter for closed fracture Medications at Discharge Home Medications furosemide 20 mg tablet 20 mg PO DAILY PRN PRN leg swelling ##0 11/29/20 esomeprazole magnesium 40 mg capsule,delayed release 40 mg PO QAM #90 caps 07/06/24 amlodipine 2.5 mg tablet 2.5 mg PO DAILY 01/10/25 calcium carbonate (Oyster Shell Calcium) 500 mg PO DAILY 01/10/25 lisinopril 20 mg tablet 20 mg PO DAILY 01/10/25 lysine 500 mg tablet (L-Lysine) 500 mg PO DAILY 01/10/25 oxycodone 5 mg tablet 5 mg PO Q4H PRN PRN Pain Score 4-10 4 days #15 tabs 01/10/25 vit C 250 mg-vit E 90 mg-zinc 40 mg-copper 1 [id number]-[id number] capsule (PreserVision AREDS-2) 1 tab PO BID eye health 01/10/25 zinc acetate 50 mg (zinc) capsule (Galzin) 50 mg PO DAILY 01/10/25 Hospital Course Operations None Procedures None Summary of Care Provided Minutes Spent on Discharge: 33 Hospital Course: Per HPI: JENNI STRICKLAND, is a 84 F who presents to the hospital with increasing lumbar back pain. Is localized to her midline and does not radiate down her legs. She states that about a week ago on she was filling up her 0 turn lawnmower and asked when she noticed the pain, it got more severethe next day so she went to her PCPs office who referred her to urgent care who then sent her to the hospital. While at the hospital she was given some pain medication and was discharged home with a pain management follow-up however she did not recognize the name and did not realize that theprovider was local so she never made an appointment. She presented today because of the continued back pain in her lumbar spine. CT scan shows little bit of progression in my opinion of her compression fracture of L1. She was admitted for pain control and MRI imaging. She denies any red flag symptoms with loss of bowel or bladderfunction and control. Hospital Course: 1. Lumbar compression fracture?84-year-old female was pulling at the gas tank of her 0 turnlawnmower when she felt the sharp pain in her back about aweek and a half ago. She presented the next day to the hospital where she was found to have an L1 compression fracture and was given pain meds with the numberto pain management however she did not recognize the number for the physician and she did not realize that he was local so she did not make an appointment. She presented back to the hospital with increasing pain and it was noted that the compression fracture had worsened so she was admitted overnight. Pain management was consulted and stated they would be able to do the kyphoplasty in the office the next day. I discussed with her the plan for discharge today and she expressed understanding the risk benefits of going home and is okay with going home. She was sent a prescriptionfor pain meds to her home pharmacy and she will be taken directly from the hospital to the [facility] with pain management for the kyphoplasty today. 2. Essential hypertension, GERD chronic medical conditions which complicate hercare. Her home medications were continued with appropriate Physical Exam Narrative General: Alert, Oriented x3, Cooperative, No apparent distress HEENT: Atraumatic, PERRLA, EOMI, Normocephalic Oral: Moist Mucosa Neck: Supple, No JVD Lungs: Diminished, Normal air movement, No rhonchi, No wheeze, No rales Cardiovascular: Regular rate, Regular Rhythm, Normal S1, Normal S2, No murmurs Abdomen: Soft, Non Tender, Non-Distended, No Hepato-splenomegaly Extremities: No edema, Capillary Refill Less than 3 Seconds Skin: No rashes, No breakdown Musculoskeletal: Tenderness to palpation in the midline thoracolumbar region between Neurological: No focal neurological deficits, Motor Exam 5/5 strength throughout, Sensory exam intact to light touch and pain Psych/Mental Status: Normal Affect, Appropriate Weight / BMI Weight Weight: 135 lb 5.821 oz Body Mass Index (BMI) 24.7 ABG / Lab / Microbiology Data 01/10/25 07:57 01/10/25 07:57 D/C Instructions Discharge Diet: No restrictions Call your doctor if you observe: Fever of 101 or Higher, Shortness of breath, Dizziness, Fainting spells, Swelling in the ankles, Chest pain and Increased palpitations (irregular heartbeat) DC O2, CPAP, BIPAP Needs Home O2 Discharge instructions: No Meaningful Use Info Meaningful Use Meaningful Use Diagnoses (Choose all that apply): None applicable Ischemic Stroke Statin Dosing Therapy Reference: STATIN DOSE THERAPY REFERENCE: * Patients > 75 years receive moderate or high dose statin therapy. * Patients 75 years or YOUNGER should receive HIGH intensity statin dose unless contraindicated. You will be required to document reason for non-treatment if statin daily dose does not meet guidelines. HIGH DOSE STATIN THERAPY DAILY Atorvastatin > than or = to 40 mg Rosuvastatin > than or = to 20 mg Amlodipine + Atorvastatin > than or = to 2.5/40 mg Ezetimibe + Simvastatin 10/80 mg Simvastatin 80mg Discharge Plan Admission Admit Date/Time: 01/10/25 09:47 Attending Provider: Jose David Brown Primary Care Provider: Da Castro Consulting Providers: Kavitha Renae Discharge Orders/Prescriptions Prescriptions: New oxycodone 5 mg Tablet 5 mg PO Q4H PRN PRN (Reason: Pain Score 4-10) 4 Days Qty: 15 0RF Continued furosemide 20 mg tablet 20 mg PO DAILY PRN PRN (Reason: leg swelling) Qty: 0 0RF lisinopril 20 mg tablet 20 mg PO DAILY amlodipine 2.5 mg tablet 2.5 mg PO DAILY calcium carbonate [Oyster Shell Calcium] 500 mg calcium (1,250 mg) tablet 500 mg PO DAILY Galzin 50 mg (zinc) capsule 50 mg PO DAILY lysine [L-Lysine] 500 mg tablet 500 mg PO DAILY PreserVision AREDS-2 250-90-40-1 mg capsule 1 tab PO BID esomeprazole magnesium 40 mg capsule,delayed release(DR/EC) 40 mg PO QAM Qty: 90 1RF Referrals / Follow Up: Kavitha Renae MD [Med Staff - Active Staff] - 01/11/25 3:00 pm Da Castro MD [Primary Care Provider] - Within 1 Week Disposition Disposition (needs filled in before D/C Order can be placed): Home, Self Care Charges/Coding Visit Charges Inpatient E&M: 18278 Disch Hosp >30min 01/11/25 1541 Cosigner Signature (if applicable): CC: Dr. Da Castro MD; Dr. Jose David Brown MD~ Signed [facility]05-20-2025 [facility] Medical Records Department [address] [place] [address] Discharge Summary 01/11/25 1538 MR#: [id number] Acct: [id number] Name: JENNI STRICKLAND Rep #: [id number] : 1940 84 From: Jose David Brown MD PCP: Dr. Da Castro MD Status:ADM LINDA [id number] Prov[facility] Date of Admission: 01/10/25 Primary Care Physician: Dr. Da Castro MD Consultations 01/10/25 16:52 Consult: Pain Management Routine Consulting Provider: Kavitha Renae Reason for Consult: L1 compression fracture EMERGENT Consult: No MD Notified: Yes Date Notified: 01/10/25 Time Notified: 16:53 Method of Notification: Verbal Reason For Visit: BACK PAIN Diagnosis Discharge Diagnosis (1) Lumbar compression fracture: Status: Acute Code(s): S32.000A - Wedge compression fracture of unspecified lumbar vertebra, initial encounter for closed fracture Medications at Discharge Home Medications furosemide 20 mg tablet 20 mg PO DAILY PRN PRN leg swelling ##0 11/29/20 esomeprazole magnesium 40 mg capsule,delayed release 40 mg PO QAM #90 caps 07/06/24 amlodipine 2.5 mg tablet 2.5 mg PO DAILY 01/10/25 calcium carbonate (Oyster Shell Calcium) 500 mg PO DAILY 01/10/25 lisinopril 20 mg tablet 20 mg PO DAILY 01/10/25 lysine 500 mg tablet (L-Lysine) 500 mg PO DAILY 01/10/25 oxycodone 5 mg tablet 5 mg PO Q4H PRN PRN Pain Score 4-10 4 days #15 tabs 01/10/25 vit C 250 mg-vit E 90 mg-zinc 40 mg-copper 1 xs-lkonpe-zwoyuc capsule (PreserVision AREDS-2) 1 tab PO BID eye health 01/10/25 zinc acetate 50 mg (zinc) capsule (Galzin) 50 mg PO DAILY 01/10/25 Hospital Course Operations None Procedures None Summary of Care Provided Minutes Spent on Discharge: 33 Hospital Course: Per HPI: JENNI STRICKLAND, is a 84 F who presents to the hospital with increasing lumbar back pain. Is localized to her midline and does not radiate down her legs. She states that about a week ago on she was filling up her 0 turn lawnmower and asked when she noticed the pain, it got more severe the next day so she went to her PCPs office who referred her to urgent care who then sent her to the hospital. While at the hospital she was given some pain medication and was discharged home with a pain management follow-up however she did not recognize the name and did not realize that the provider was local so she never made an appointment. She presented today because of the continued back pain in her lumbar spine. CT scan shows little bit of progression in my opinion of her compression fracture of L1. She was admitted for pain control and MRI imaging. She denies any red flag symptoms with loss of bowel or bladder function and control. Hospital Course: 1. Lumbar compression fracture???84-year-old female was pulling at the gas tank of her 0 turn lawnmower when she felt the sharp pain in her back about a week and a half ago. She presented the next day to the hospital where she was found to have an L1 compression fracture and was given pain meds with the number to pain management however she did not recognize the number for the physician and she did not realize that he was local so she did not make an appointment. She presented back to the hospital with increasing pain and it was noted that the compression fracture had worsened so she was admitted overnight. Pain management was consulted and stated they would be able to do the kyphoplasty in the office the next day. I discussed with her the plan for discharge today and she expressed understanding the risk benefits of going home and is okay with going home. She was sent a prescription for pain meds to her home pharmacy and she will be taken directly from the hospital to the appointment with pain management for the kyphoplasty today. 2. Essential hypertension, GERD chronic medical conditions which complicate her care. Her home medications were continued with appropriate Physical Exam Narrative General: Alert, Oriented x3, Cooperative, No apparent distress HEENT: Atraumatic, PERRLA, EOMI, Normocephalic Oral: Moist Mucosa Neck: Supple, No JVD Lungs: Diminished, Normal air movement, No rhonchi, No wheeze, No rales Cardiovascular: Regular rate, Regular Rhythm, Normal S1, Normal S2, No murmurs Abdomen: Soft, Non Tender, Non-Distended, No Hepato-splenomegaly Extremities: No edema, Capillary Refill Less than 3 Seconds Skin: No rashes, No breakdown Musculoskeletal: Tenderness to palpation in the midline thoracolumbar region between Neurological: No focal neurological deficits, Motor Exam 5/5 strength throughout, Sensory exam intact to light touch and pain Psych/Mental Status: Normal Affect, Appropriate Weight / BMI Weight Weight: 135 lb 5.821 oz Body Mass Index (BMI) 24.7 ABG / Lab / Microbiology Data 01/10/25 07:57 01/10/25 07:57 (more content not included)...[facility] 01-11-2025 Consult note Author Bruna Kohler [facility] Note Date/Time January 11, 2025 11:51 am [facility] Medical Records Department [address] [place] [address] Counseling Note - Pharmacy 01/11/25 1150 MR#: [id number] Acct: [id number] Name: JENNI STRICKLAND Rep #:[id number] : 1940 84 From: Bruna Kohler PCP: Dr. Da Castro MD Status:ADM I NO Y Location: [place] [address] Pharmacy [facility] has performed discharge medication reconciliation and counseling for this patient. 1. OXYCODONE 5MG PO Q4H PRN PAIN The patient's discharge medication list was reviewed for discrepancies and discrepancies were resolved. The patient was counseled on the following discharge medications and changes in medications for homegoing were reviewed. The Reason for Use, instructions for use, and potential side effects were reviewed for all new medications. The patient's questions regarding all of their medications were answered. The patient was able to verbally demonstrate an understanding of their dischargemedications. Medications at Discharge Home Medications furosemide 20 mg tablet 20 mg PO DAILY PRN PRN leg swelling ##0 11/29/20 esomeprazole magnesium 40 mg capsule,delayed release 40 mg PO QAM #90 caps 07/06/24 amlodipine 2.5 mg tablet 2.5 mg PO DAILY 01/10/25 calcium carbonate (Oyster Shell Calcium) 500 mg PO DAILY 01/10/25 lisinopril 20 mg tablet 20 mg PO DAILY 01/10/25 lysine 500 mg tablet (L-Lysine) 500 mg PO DAILY 01/10/25 oxycodone 5 mg tablet 5 mg PO Q4H PRN PRN Pain Score 4-10 4 days #15 tabs 01/10/25 vit C 250 mg-vit E 90 mg-zinc 40 mg-copper 1 uu-stlkvd-naphyp capsule (PreserVision AREDS-2) 1 tab PO BID eye health 01/10/25 zinc acetate 50 mg (zinc) capsule (Galzin) 50 mg PO DAILY 01/10/25 01/11/25 1151 <Electronically signed by Bruna Kohler> Date _ Bruna Kohler Cosigner Signature (if applicable): Date CC: ~ Signed [facility] Work Phone: 1(235) 508-453705-20-2025 Consult note [facility] Medical Records Department [address] [place] [address] Counseling Note - Pharmacy 01/11/25 1150 MR#: [id number] Acct: [id number] Name: JENNI STRICKLAND Rep #:[id number] : 1940 84 From: Bruna Kohler PCP: Dr. Da Castro MD Status:ADM I NO Y Location: [facility] [id number] Pharmacy [facility] has performed discharge medication reconciliation and counseling for this patient. 1. OXYCODONE 5MG PO Q4H PRN PAIN The patient's discharge medication list was reviewed for discrepancies and discrepancies were resolved. The patient was counseled on the following discharge medications and changes in medications for homegoing were reviewed. The Reason for Use, instructions for use, and potential side effects were reviewed for all new medications. The patient's questions regarding all of their medications were answered. The patient was able to verbally demonstrate an understanding of their dischargemedications. Medications at Discharge Home Medications furosemide 20 mg tablet 20 mg PO DAILY PRN PRN leg swelling ##0 11/29/20 esomeprazole magnesium 40 mg capsule,delayed release 40 mg PO QAM #90 caps 07/06/24 amlodipine 2.5 mg tablet 2.5 mg PO DAILY 01/10/25 calcium carbonate (Oyster Shell Calcium) 500 mg PO DAILY 01/10/25 lisinopril 20 mg tablet 20 mg PO DAILY 01/10/25 lysine 500 mg tablet (L-Lysine) 500 mg PO DAILY 01/10/25 oxycodone 5 mg tablet 5 mg PO Q4H PRN PRN Pain Score 4-10 4 days #15 tabs 01/10/25 vit C 250 mg-vit E 90 mg-zinc 40 mg-copper 1 jv-mptvte-uhthmy capsule (PreserVision AREDS-2) 1 tab PO BID eye health 01/10/25 zinc acetate 50 mg (zinc) capsule (Galzin) 50 mg PO DAILY 01/10/25 01/11/25 1151 Date _ Bruna Kohler Cosigner Signature (if applicable): _ CC: ~ Signed [facility]05-20-2025 Discharge summary Author Jose David Brown [facility] Note Date/Time January 11, 2025 7:06a m [facility] Medical Records Department [address] [place] [address] Instructions for Home/Discharge Instructions 01/10/25 1818 MR#: [id number] Acct: [id number] Name: JENNI STRICKLAND Rep #:[id number] : 1940 84 From: Jose David ochoa MD PCP: Dr. Da Castro MD Status:ADM I NO Discharge Instructions Diet Discharge Diet: No restrictions DC O2, CPAP, BIPAP needs Home O2 Discharge instructions: No Dressing / Incision Discharge Activity: Return to Normal Activity Dressing / Incision Call your doctor if you observe: Fever of 101 or Higher, Shortness of breath, Dizziness, Fainting spells, Swelling in the ankles, Chest pain and Increased palpitations (irregular heartbeat) Follow Up Care Test Results: Test results from this visit will be discussed in further detail at your follow- up appointment, if applicable. Discharge Plan Admission Admit Date/Time: 01/10/25 09:47 Attending Provider: Jose David Brown Primary Care Provider: Da Castro Consulting Providers: Kavitha Renae Discharge Orders/Prescriptions Prescriptions: New oxycodone 5 mg Tablet 5 mg PO Q4H PRN PRN (Reason: Pain Score 4-10) 4 Days Qty: 15 0RF Continued furosemide 20 mg tablet 20 mg PO DAILY PRN PRN (Reason: leg swelling) Qty: 0 0RF lisinopril 20 mg tablet 20 mg PO DAILY amlodipine 2.5 mg tablet 2.5 mg PO DAILY calcium carbonate [Oyster Shell Calcium] 500 mg calcium (1,250 mg) tablet 500 mg PO DAILY Galzin 50 mg (zinc) capsule 50 mg PO DAILY lysine [L-Lysine] 500 mg tablet 500 mg PO DAILY PreserVision AREDS-2 250-90-40-1 mg capsule 1 tab PO BID esomeprazole magnesium 40 mg capsule,delayed release(DR/EC) 40 mg PO QAM Qty: 90 1RF Referrals / Follow Up: Kavitha Renae MD [Med Staff - Active Staff] - 01/11/25 3:00 pm Da Castro MD [Primary Care Provider] - Within 1 Week Disposition Disposition (needs filled in before D/C Order can be placed): Home, Self Care 01/11/25 0706<Electronically signed by Jose David Brown MD>Jose David Brown MD CC: Dr. Kavitha Renae MD; Dr. Da Castro MD ~ Signed [facility] Work Phone: 1(711) 559-482105-20-2025 Discharge summary [facility] Medical Records Department [address] [place] [address] Instructions for Home/Discharge Instructions 01/10/25 1818 MR#: [id number] Acct: [id number] Name: JENNI STRICKLAND Rep #:[id number] : 1940 84 From: Jose David ochoa MD PCP: Dr. Da Castro MD Status:ADM I NO Discharge Instructions Diet Discharge Diet: No restrictions DC O2, CPAP, BIPAP needs Home O2 Discharge instructions: No Dressing / Incision Discharge Activity: Return to Normal Activity Dressing / Incision Call your doctor if you observe: Fever of 101 or Higher, Shortness of breath, Dizziness, Fainting spells, Swelling in the ankles, Chest pain and Increased palpitations (irregular heartbeat) Follow Up Care Test Results: Test results from this visit will be discussed in further detail at your follow- up appointment, if applicable. Discharge Plan Admission Admit Date/Time: 01/10/25 09:47 Attending Provider: Jose David Brown Primary Care Provider: Da Castro Consulting Providers: Kavitha Renae Discharge Orders/Prescriptions Prescriptions: New oxycodone 5 mg Tablet 5 mg PO Q4H PRN PRN (Reason: Pain Score 4-10) 4 Days Qty: 15 0RF Continued furosemide 20 mg tablet 20 mg PO DAILY PRN PRN (Reason: leg swelling) Qty: 0 0RF lisinopril 20 mg tablet 20 mg PO DAILY amlodipine 2.5 mg tablet 2.5 mg PO DAILY calcium carbonate [Oyster Shell Calcium] 500 mg calcium (1,250 mg) tablet 500 mg PO DAILY Galzin 50 mg (zinc) capsule 50 mg PO DAILY lysine [L-Lysine] 500 mg tablet 500 mg PO DAILY PreserVision AREDS-2 250-90-40-1 mg capsule 1 tab PO BID esomeprazole magnesium 40 mg capsule,delayed release(DR/EC) 40 mg PO QAM Qty: 90 1RF Referrals / Follow Up: Kavitha Renae MD [Med Staff - Active Staff] - 01/11/25 3:00 pm Da Castro MD [Primary Care Provider] - Within 1 Week Disposition Disposition (needs filled in before D/C Order can be placed): Home, Self Care 01/11/25 0706Jose David Brown MD CC: Dr. Kavitha Renae MD; Dr. Da Castro MD ~ Signed [facility]05-19-2025 History and physical note Author Jose David Brown [facility] Note Date/Time January 10, 2025 6:17p m [facility] Medical Records Department [address] [place] [address] H&P Exam - Hospitalist 01/10/25 1653 MR#: [id number] Acct: [id number] Name: JENNI STRICKLAND Rep #:[id number] : 1940 84 From: Jose David ochoa MD PCP: Dr. Da Castro MD Status:ADM I NO Location: [place] LL225-7 HPI - General General Date of Admission: 01/10/25 HPI Narrative JENNI STRICKLAND, is a 84 F who presents to the hospital with increasing lumbar back pain. Is localized to her midline and does not radiate down her legs. She states that about a week ago on she was filling up her 0 turn lawnmower and asked when she noticed the pain, it got more severe the next day so she went to her PCPs office who referred her to urgent care who then sent herto the hospital. While at the hospital she was given some pain medication and was discharged home with a pain management follow-up however she did not recognize the name and did not realize that the provider was local so she never made an appointment. She presented today because of the continued back pain in her lumbar spine. CT scan shows little bit of progression in my opinion of her compression fracture of L1. She was admitted for pain control and MRI imaging. She denies any red flag symptoms with loss of bowel or bladder function and control. [facility] Medical History (Updated 01/10/25 @ 09:[address] 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 Home Medications ?Medication ?Instructions ?Recorded ?Last Taken ?Type furosemide 20 mg tablet 20 mg PO DAILY PRN PRN leg 0 11/29/20 01/10/25 08:00 Rx swelling ##0 20 mg esomeprazole magnesium 40 mg 40 mg PO QAM #90 caps 08/1701/10/25 08:00 Rx capsule,delayed release 40 mg amlodipine 2.5 mg tablet 2.5 mg PO DAILY 01/10/25 08:00 History 2.5 mg calcium carbonate (Oyster Shell 500 mg PO DAILY 01/10/25 08:00 History Calcium) 500 mg lisinopril 20 mg tablet 20 mg PO DAILY 01/10/2512/23 08:00 History 20 mg lysine 500 mg tablet (L-Lysine) 500 mg PO DAILY 01/10/25 08:00 History 500 mg vit C 250 mg-vit E 90 mg-zinc 40 1 tab PO BID eye heal 01/10/25 01/10/25 08:00 History mg-copper 1 da-xrsjeu-oruoyw 1 TAB capsule (PreserVision AREDS-2) zinc acetate 50 mg (zinc) capsule 50 mg PO DAILY 01/1001/10/25 08:00 History (Galzin) 50 mg Allergy/AdvReac Type Severity Reaction Status Date / Time Latex, Natural Rubber Allergy Mild Verified 01/10/25 07:27 simvastatin (From Zocor) Allergy Mild Verified 01/10/25 07:27 guaifenesin (From Robitussin) Allergy Unknown Verified 01/10/25 07:27 Penicillins Allergy Anaphylaxis Verified 01/10/25 07:27 Sulfa (Sulfonamide Allergy Unknown Verified 01/10/25 07:27 Antibiotics) Family History Mother Colon cancer Father Colon cancer Sister Breast cancer Diabetes CVA (cerebral vascular accident) Cervical cancer Brother Heart disease Daughter COPD (chronic obstructive pulmonary disease) Son Diabetes Surgical History History of cataract extraction History of amputation of right great toe History of appendectomy history of left arm surgery history of hand reconstruction Social History Smoking Status: Never smoker ROS Constitutional Constitutional: Denies chills, fatigue, fever(s) or malaise Eyes Eyes: Denies blurry vision ENT HEENT: Denies headache(s) or nasal discharge Cardiovascular Cardiovascular: Denies chest pain, dyspnea on exertion or syncope Respiratory/Chest Respiratory/Chest: Denies cough, shortness of breath at rest or shortness of breath with exertion Gastrointestinal Gastrointestinal: Denies constipation, diarrhea, nausea or vomiting Genitourinary Genitourinary: Denies dysuria Musculoskeletal Musculoskeletal: Reports back pain Neurologic Neurologic: Denies focal weakness, numbness or tremor(s) Psychiatric Psychiatric: Denies anxiety or depression Vital Signs Vital Signs Vital Signs: 01/10/25 07:24 01/10/25 09:50 01/10/25 10:44 Temperature 97.8 F 98 F 98.1 F Temperature Source Oral Oral Pulse Rate 67 78 63 Respiratory Rate 18 19 H 18 Blood Pressure 114/89 H 147/78 H 157/65 H Blood Pressure Mean 97 101 95 Blood Pressure Source Monitor Blood Pressure Position Semi-Fowlers Blood Pressure Location Right Arm Pulse Ox 95 97 97 Oxygen Delivery Method Room Air Room Air 01/10/25 14:42 Temperature 98.0 F Temperature Source Oral Pulse Rate 70 Respiratory Rate 16 Blood Pressure 123/59 H Blood Pressure Mean 80 Blood Pressure Source Monitor Blood Pressure Position Sitting Blood Pressure Location Left Arm Pulse Ox 94 Oxygen Delivery Method Room Air Weight Weight: 135 lb 5.821 oz Body Mass Index (BMI) 24.7 Physical Exam Narrative General: Alert, Oriented x3, Cooperative, No apparent distress HEENT: Atraumatic, PERRLA, EOMI, Normocephalic Oral: Moist Mucosa Neck: Supple, No JVD Lungs: Diminished, Normal air movement, No rhonchi, No wheeze, No rales Cardiovascular: Regular rate, Regular Rhythm, Normal S1, Normal S2, No murmurs Abdomen: Soft, Non Tender, Non-Distended, No Hepato-splenomegaly Extremities: No edema, Capillary Refill Less than 3 Seconds Skin: No rashes, No breakdown Musculoskeletal: Tenderness to palpation in the midline thoracolumbar region between Neurological: No focal neurological deficits, Motor Exam 5/5 strength throughout, Sensory exam intact to light touch and pain Psych/Mental Status: Normal Affect, Appropriate Results Lab / Micro Data 01/10/25 07:57 01/10/25 07:57 Labs: Laboratory Results - last 24 hr 01/10/25 07:57: WBC 5.5, RBC 4.62, Hgb 13.9, Hct 41.4, MCV 89.6, MCH 30.1, MCHC 33.6, RDW Std Deviation 39.0, RDW Coeff of Catrina 12.0, Plt Count 238, MPV 9.4, Immature Gran % (Auto) 0.200, Neut % (Auto) 61.9, Lymph % (Auto) 25.1, [place] % (Auto) 10.7 H, Eos % (Auto) 1.4, Baso % (Auto) 0.7, Absolute Neuts (auto) 3.4, Absolute Lymphs (auto) 1.39, Nucleated RBC % 0, Sodium 142, Potassium 3.9, Chloride 110 H, Carbon Dioxide 22.2, Anion Gap 10, BUN 21 H, Creatinine 0.87, Estim Creat Clear Calc 43.87 L, Est GFR (MDRD) Non-Af 65, BUN/Creatinine Ratio 23.9 H, Glucose 91, Calcium 9.4, Total Bilirubin 0.25, AST 24, ALT 11, Alkaline Phosphatase 107 H, Total Protein 6.8, Albumin 3.8, Globulin 3.0, Albumin/Globulin Ratio 1.2 01/10/25 09:47: Urine Color Yellow, Urine Clarity Sl. Cloudy, Urine pH 6.0, Ur Specific [place] 1.015, Urine Protein 30 H, Urine Glucose (UA) Normal, Urine Ketones Negative, Urine Occult Blood 10 H, Urine Nitrite Negative, Urine Bilirubin Negative, Urine Urobilinogen Normal, Ur Leukocyte Esterase 100 H, Urine RBC 0 SEEN, Urine WBC 0-5 SEEN, Ur Squamous Epith Cells 0-5 SEEN, Ur Transition Epith Cell 0-5 SEEN, Urine Bacteria 0 SEEN, Urine Mucus 0 SEEN Imaging Radiology Impression Lumbar Spine CT 01/10/25 08:15 IMPRESSION: 1. Mild progression of acute to subacute compression fracture at the superior endplate of L1. 2. Minimal retropulsion of the posterior superior wall of L1 resulting in minimal osseous spinal canal stenosis. 3. Grade 1 anterolisthesis of L4 on L5. 4. Moderate multilevel degenerative change, greatest at L5-S1. Reading Location: [facility] Lumbar Spine MRI 01/10/25 10:36 IMPRESSION: 1. Acute progression of qitw-dt-rrcxnanb L1 compression fracture with marrow edema. Minimal retropulsion of posterior superior wall of L1 resulting in minimal spinal canal stenosis without mass effect on thespinal cord. 2. Grade 1 anterolisthesis of L4 on L5. 3. Severe L4-5 spinal canal stenosis with compression of the nerve roots withinthe spinal canal. 4. Multilevel degenerative changes with varying degrees of spinal canal and neural foraminal stenosis, as detailed above. Reading Location: [facility] Assessment & Plan Assessment/Plan (1) Lumbar compression fracture: PLAN: Plan 1. Lumbar compression fracture ? MRI demonstrates severe canal stenosis of L4-5 though she is not having any peripheral symptoms in her lower extremities ? She does have mild to moderate compression fracture with edema indicating acute compression fracture ? Will consult pain management for potential kyphoplasty as an outpatient ? Continue with multimodal pain management ? PT/OT to assist with mobility 2. Essential HTN ? Continue with her home blood pressure medications ? She does take Lasix as needed for edema ? Will monitor and make adjustments as necessary 3. GERD ? Stable ? Continue with PPI DVT: Lovenox 60 minutes was spent on direct patient care, including documentation as well as chart review and collaboration with colleagues Charges/Coding Visit Charges Inpatient E&M: 94535 Init Hosp L2 01/10/251816 <Electronically signed by Jose David Brown MD> Cosigner Signature (if applicable): CC: Dr. Da Castro MD; Dr. Jose David Brown MD~ Signed [facility] Work Phone: [phone]) 883-454105-19-2025 History and physical note [facility] Medical Records Department [address] [place] [address] H&P Exam - Hospitalist 01/10/25 1653 MR#: [id number] Acct: [id number] Name: JENNI STRICKLAND Rep #:[id number] : 1940 84 From: Jose David ochoa MD PCP: Dr. Da Castro MD Status:ADM I NO Location: [place]3 [id number] HPI - General General Date of Admission: 01/10/25 HPI Narrative JENNI STRICKLAND, is a 84 F who presents to the hospital with increasing lumbar back pain. Is localized to her midline and does not radiate down her legs. She states that about a week ago on she was filling up her 0 turn lawnmower and asked when she noticed the pain, it got more severe the next day so she went to her PCPs office who referred her to urgent care who then sent herto the hospital. While at the hospital she was given some pain medication and was discharged home with a pain management follow-up however she did not recognize the name and did not realize that the providerwas local so she never made an appointment. She presented today because of the continued back pain in her lumbar spine. CT scan shows little bit of progression in my opinion of her compression fracture of L1. She was admitted for pain control and MRI imaging. She denies any red flag symptoms with loss of bowel or bladder function and control. [facility] Medical History (Updated 01/10/25 @ 09:[address] 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 Home Medications ?Medication ?Instructions ?Recorded ?Last Taken ?Type furosemide 20 mg tablet 20 mg PO DAILY PRN PRN leg 0 11/29/20 01/10/25 08:00 Rx swelling ##0 20 mg esomeprazole magnesium 40 mg 40 mg PO QAM #90 caps 08/1701/10/25 08:00 Rx capsule,delayed release 40 mg amlodipine 2.5 mg tablet 2.5 mg PO DAILY 01/10/25 08:00 History 2.5 mg calcium carbonate (Oyster Shell 500 mg PO DAILY 01/10/25 08:00 History Calcium) 500 mg lisinopril 20 mg tablet 20 mg PO DAILY 01/10/2512/23 08:00 History 20 mg lysine 500 mg tablet (L-Lysine) 500 mg PO DAILY 01/10/25 08:00 History 500 mg vit C 250 mg-vit E 90 mg-zinc 40 1 tab PO BID eye heal th 01/10/25 01/10/25 08:00 History mg-copper 1 [id number] 1 TAB capsule (PreserVision AREDS-2) zinc acetate 50 mg (zinc) capsule 50 mg PO DAILY 01/1001/10/25 08:00 History (Galzin) 50 mg Allergy/AdvReac Type Severity Reaction Status Date / Time Latex, Natural Rubber Allergy Mild Verified 01/10/25 07:27 simvastatin (From Zocor) Allergy Mild Verified 01/10/25 07:27 guaifenesin (From Robitussin) Allergy Unknown Verified 01/10/25 07:27 Penicillins Allergy Anaphylaxis Verified 01/10/25 07:27 Sulfa (Sulfonamide Allergy Unknown Verified 01/10/25 07:27 Antibiotics) Family History Mother Colon cancer Father Colon cancer Sister Breast cancer Diabetes CVA (cerebral vascular accident) Cervical cancer Brother Heart disease Daughter COPD (chronic obstructive pulmonary disease) Son Diabetes Surgical History History of cataract extraction History of amputation of right great toe History of appendectomy history of left arm surgery history of hand reconstruction Social History Smoking Status: Never smoker ROS Constitutional Constitutional: Denies chills, fatigue, fever(s) or malaise Eyes Eyes: Denies blurry vision ENT HEENT: Denies headache(s) or nasal discharge Cardiovascular Cardiovascular: Denies chest pain, dyspnea on exertion or syncope Respiratory/Chest Respiratory/Chest: Denies cough, shortness of breath at rest or shortness of breath with exertion Gastrointestinal Gastrointestinal: Denies constipation, diarrhea, nausea or vomiting Genitourinary Genitourinary: Denies dysuria Musculoskeletal Musculoskeletal: Reports back pain Neurologic Neurologic: Denies focal weakness, numbness or tremor(s) Psychiatric Psychiatric: Denies anxiety or depression Vital Signs Vital Signs Vital Signs: 01/10/25 07:24 01/10/25 09:50 01/10/25 10:44 Temperature 97.8 F 98 F 98.1 F Temperature Source Oral Oral Pulse Rate 67 78 63 Respiratory Rate 18 19 H 18 Blood Pressure 114/89 H 147/78 H 157/65 H Blood Pressure Mean 97 101 95 Blood Pressure Source Monitor Blood Pressure Position Semi-Fowlers Blood Pressure Location Right Arm Pulse Ox 95 97 97 Oxygen Delivery Method Room Air Room Air 01/10/25 14:42 Temperature 98.0 F Temperature Source Oral Pulse Rate 70 Respiratory Rate 16 Blood Pressure 123/59 H Blood Pressure Mean 80 Blood Pressure Source Monitor Blood Pressure Position Sitting Blood Pressure Location Left Arm Pulse Ox 94 Oxygen Delivery Method Room Air Weight Weight: 135 lb 5.821 oz Body Mass Index (BMI) 24.7 Physical Exam Narrative General: Alert, Oriented x3, Cooperative, No apparent distress HEENT: Atraumatic, PERRLA, EOMI, Normocephalic Oral: Moist Mucosa Neck: Supple, No JVD Lungs: Diminished, Normal air movement, No rhonchi, No wheeze, No rales Cardiovascular: Regular rate, Regular Rhythm, Normal S1, Normal S2, No murmurs Abdomen: Soft, Non Tender, Non-Distended, No Hepato-splenomegaly Extremities: No edema, Capillary Refill Less than 3 Seconds Skin: No rashes, No breakdown Musculoskeletal: Tenderness to palpation in the midline thoracolumbar region between Neurological: No focal neurological deficits, Motor Exam 5/5 strength throughout, Sensory exam intact to light touch and pain Psych/Mental Status: Normal Affect, Appropriate Results Lab / Micro Data 01/10/25 07:57 01/10/25 07:57 Labs: Laboratory Results - last 24 hr 01/10/25 07:57: WBC 5.5, RBC 4.62, Hgb 13.9, Hct 41.4, MCV 89.6, MCH 30.1, MCHC 33.6, RDW Std Deviation 39.0, RDW Coeff of Catrina 12.0, Plt Count 238, MPV 9.4, Immature Gran % (Auto) 0.200, Neut % (Auto) 61.9, Lymph % (Auto) 25.1, Redwood % (Auto) 10.7 H, Eos % (Auto) 1.4, Baso % (Auto) 0.7, Absolute Neuts (auto) 3.4, Absolute Lymphs (auto) 1.39, Nucleated RBC % 0, Sodium 142, Potassium 3.9, Chloride 110 H, Carbon Dioxide 22.2, Anion Gap 10, BUN 21 H, Creatinine 0.87, Estim Creat Clear Calc 43.87 L, Est GFR (MDRD) Non-Af 65, BUN/Creatinine Ratio 23.9 H, Glucose 91, Calcium 9.4, Total Bilirubin 0.25, AST 24, ALT 11, Alkaline Phosphatase 107 H, Total Protein 6.8, Albumin 3.8, Globulin 3.0, Albumin/G lobulin Ratio 1.2 01/10/25 09:47: Urine Color Yellow, Urine Clarity Sl. Cloudy, Urine pH 6.0, Ur Specific [place] 1.015, Urine Protein 30 H, Urine Glucose (UA) Normal, Urine Ketones Negative, Urine Occult Blood 10 H, Urine Nitrite Negative, Urine Bilirubin Negative, Urine Urobilinogen Normal, Ur Leukocyte Esterase 100 H, Urine RBC 0 SEEN, Urine WBC 0-5 SEEN, Ur Squamous Epith Cells 0-5 SEEN, Ur Transition Epith Cell 0-5 SEEN, Urine Bacteria 0 SEEN, Urine Mucus 0 SEEN Imaging Radiology Impression Lumbar Spine CT 01/10/25 08:15 IMPRESSION: 1. Mild progression of acute to subacute compression fracture at the superior endplate of L1. 2. Minimal retropulsion of the posterior superior wall of L1 resulting in minimal osseous spinal canal stenosis. 3. Grade 1 anterolisthesis of L4 on L5. 4. Moderate multilevel degenerative change, greatest at L5-S1. Reading Location: [facility] Lumbar Spine MRI 01/10/25 10:36 IMPRESSION: 1. Acute progression of [id number] L1 compression fracture with marrow edema. Minimal retropulsion of posterior superior wall of L1 resulting in minimal spinal canal stenosis without mass effect on thespinal cord. 2. Grade 1 anterolisthesis of L4 on L5. 3. Severe L4-5 spinal canal stenosis with compression of the nerve roots withinthe spinal canal. 4. Multilevel degenerative changes with varying degrees of spinal canal and neural foraminal stenosis, as detailed above. Reading Location: [facility] Assessment & Plan Assessment/Plan (1) Lumbar compression fracture: PLAN: Plan 1. Lumbar compression fracture ? MRI demonstrates severe canal stenosis of L4-5 though she is not having any peripheral symptoms in her lower extremities ? She does have mild to moderate compression fracture with edema indicating acute compression fracture ? Will consult pain management for potential kyphoplasty as an outpatient ? Continue with multimodal pain management ? PT/OT to assist with mobility 2. Essential HTN ? Continue with her home blood pressure medications ? She does take Lasix as needed for edema ? Will monitor and make adjustments as necessary 3. GERD ? Stable ? Continue with PPI DVT: Lovenox 60 minutes was spent on direct patient care, including documentation as well as chart review and collaboration with colleagues Charges/Coding Visit Charges Inpatient E&M: 81955 Init Hosp L2 01/10/25 1817 Cosigner Signature (if applicable): CC: Dr. Da Castro MD; Dr. Jose David Brown MD~ Signed [facility]05-19-2025 Discharge summary Author Gus Garza [facility] Note Date/Time January 10, 2025 3:32p m [facility] Medical Records Department [address] [place] [address] Emergency Department Summary 01/10/25 MR#: [id number] Acct: [id number] Name: JENNI STRICKLAND Rep #:[id number] : 1940 84 From: Gus Allen PCP: Dr. Da Castro MD Status:ADM I NO Location: [place]3 [id number] HPI History of Present Illness Chief Complaint: Back Informant: patient and EMS Narrative Narrative: 84-year-old female presenting to the emergency room with low back pain. Patientstates that last week she was seen in the emergency department for sudden onset of back pain. She states that she was bent over putting gas in the mower when she suddenly got a sharp pain in the midline of the lumbar region. She states that she underwent a CT scan that showed a compression fracture. Review of the chart shows a mild compression fracture of L1 was read by radiology. Patient denies any radicular symptoms. She denies any difficulty with bowel or bladder control. Last bowel movement was yesterday. She states she was given 3 days ofpain medication and has no more that pain medicine. She states she was given the name of her doctor to follow-up with but she does not know that And did not schedule follow-up with them or primary care. She states last night she took a Tylenol PM and slept through the night but this morning she was unable toget up out of bed. She states her has stage IV cancer and cannot reallycare for so he called the ambulance. She denies any fevers. No rashes. She states that she has a IcyHot patch on the low back. She denies any abdominal pain. No urinary symptoms. [facility] Medical History (Updated 01/10/25 @ 09:[address] 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 Home Medications ?Medication ?Instructions ?Recorded ?Last Taken ?Type furosemide 20 mg tablet 20 mg PO DAILY PRN PRN leg 0 11/29/20 01/10/25 Rx swelling ##0 esomeprazole magnesium 40 mg 40 mg PO QAM #90 caps 08/1701/10/25 Rx capsule,delayed release amlodipine 2.5 mg tablet 2.5 mg PO DAILY 01/10/25 History calcium carbonate (Oyster Shell 500 mg PO DAILY 01/10/25 History Calcium) lisinopril 20 mg tablet 20 mg PO DAILY 01/10/2512/23 History lysine 500 mg tablet (L-Lysine) 500 mg PO DAILY 01/10/25 History zinc acetate 50 mg (zinc) capsule 50 mg PO DAILY 01/1001/10/25 History (Galzin) Allergy/AdvReac Type Severity Reaction Status Date / Time Latex, Natural Rubber Allergy Mild Verified 01/10/25 07:27 simvastatin (From Zocor) Allergy Mild Verified 01/10/25 07:27 guaifenesin (From Robitussin) Allergy Unknown Verified 01/10/25 07:27 Penicillins Allergy Anaphylaxis Verified 01/10/25 07:27 Sulfa (Sulfonamide Allergy Unknown Verified 01/10/25 07:27 Antibiotics) Family History Mother Colon cancer Father Colon cancer Sister Breast cancer Diabetes CVA (cerebral vascular accident) Cervical cancer Brother Heart disease Daughter COPD (chronic obstructive pulmonary disease) Son Diabetes Surgical History History of cataract extraction History of amputation of right great toe History of appendectomy history of left arm surgery history of hand reconstruction Social History Smoking Status: Never smoker ROS ROS ED Constitutional Constitutional ED: Denies chills, fever(s) or weight loss Eyes Eyes: Denies change in vision or diplopia ENT ENT ED: Denies ear pain, rhinorrhea or sore throat Cardiovascular Cardiovascular: Denies chest pain, orthopnea, palpitations or racing heartbeat Respiratory/Chest Respiratory/Chest: Denies cough, dyspnea or orthopnea Gastrointestinal Gastrointestinal: Denies abdominal pain, diarrhea, nausea or vomiting Genitourinary Genitourinary ED: Denies dysuria, hematuria or urinary frequency Musculoskeletal Musculoskeletal: Reports back pain; Denies arthralgias, myalgias or neck pain Integumentary Denies abscess or rash Neurologic Neurologic: Denies headache(s), paresthesias or weakness Psychiatric Psychiatric: Denies anxiety, depression, suicidal ideation or suicidal thoughts Endocrine Endocrinology: Denies polydipsia, polyphagia or polyuria Allergic/Immunologic Allergic/Immunologic ED: Denies mouth swelling, tongue swelling or urticaria EXAM Physical Exam Narrative Exam Narrative: Elderly female sitting slightly laying back in the bed. Const Vital Signs: 01/10/25 07:24 Temperature 97.8 F Temperature Source Oral Pulse Rate 67 Respiratory Rate 18 Blood Pressure 114/89 H Blood Pressure Mean 97 Pulse Ox 95 Oxygen Delivery Method Room Air Positive well nourished and well developed General Appearance ED: well developed and NAD HEENT Reports normocephalic, head/scalp atraumatic and moist mucous membranes Eyes PERRL and EOMs intact bilaterally Neck no lymphadenopathy, supple and no JVD Resp normal respiratory effort and clear to auscultation bilaterally Cardio regular rate, regular rhythm and no murmurs GI normal to inspection, nondistended, normoactive bowel sounds and non-tender Palpation: soft Back/Spine no CVA tenderness and normal ROM Back/Spine Narrative: Painful range of motion. She notes pain in the midline of the lower lumbar region. I do not appreciate any rashes. There is an icy patch on but I remove this to the evaluate the skin and do not appreciate rash. No significant tenderness to palpation in the paraspinal musculature. Extremity normal to inspection General Extremety ED: Negative for edema General Extremity: Negative for edema Neuro oriented x3, CN's II-XII intact bilaterally and no sensory deficits noted Neuro Narrative: no saddle anesthesia. normal LE reflexes. Normal sensation of legs. =strength inboth legs. Sensorium / Orientation: alert Motor Exam: strength 5/5 throughout Deep Tendon Reflexes: Rt Patellar (L4): 2+, Lt Patellar (L4): 2+, Rt Ankle (S1):2+ and Lt Ankle (S1): 2+ Deep Tendon Reflexes Back: Rt Patellar (L4): 2+, Lt Patellar (L4): 2+, Rt Ankle (S1): 2+ and Lt Ankle (S1): 2+ Psych mental status grossly normal Mood & Affect: Negative for depressed or tearful Skin no rashes or lesions noted and no wounds MDM MDM MDM Narrative Medical decision making narrative: Differential diagnosis includes but not limited to fracture lumbar stenosis cauda equina lumbar radiculopathy disc herniation hematoma infection Basic blood work shows a white count of 5.5 hemoglobin 13.9 platelet count is 238. CMP was obtained shows an alkaline phosphatase of 107 [address] 0[address] of the lumbar spine was repeated which shows progression of the fracture with mild retropulsion of the posterior wall. She is neurologically intact. Please see radiologist read for full details patient received pain medication. She still has significant pain with range of motion. I spoke with the patient and her . I think the appropriate next course would be admission MRI and spine evaluation. History & Record Review Discussion w/independent historian: Patient and Family Additional record(s) reviewed:: Prior ED visit and Prior labs Lab Data Attestation: I reviewed the patient's lab results. Labs: Laboratory Results - last 24 hr 01/10/25 07:57 WBC 5.5 RBC 4.62 Hgb 13.9 Hct 41.4 MCV 89.6 MCH 30.1 MCHC 33.6 RDW Std Deviation 39.0 RDW Coeff of Catrina 12.0 Plt Count 238 MPV 9.4 Immature Gran % (Auto) 0.200 Neut % (Auto) 61.9 Lymph % (Auto) 25.1 Redwood % (Auto) 10.7 H Eos % (Auto) 1.4 Baso % (Auto) 0.7 Absolute Neuts (auto) 3.4 Absolute Lymphs (auto) 1.39 Nucleated RBC % 0 Sodium 142 Potassium 3.9 Chloride 110 H Carbon Dioxide 22.2 Anion Gap 10 BUN 21 H Creatinine 0.87 Estim Creat Clear Calc 43.87 L Est GFR (MDRD) Non-Af 65 BUN/Creatinine Ratio 23.9 H Glucose 91 Calcium 9.4 Total Bilirubin 0.25 AST 24 ALT 11 Alkaline Phosphatase 107 H Total Protein 6.8 Albumin 3.8 Globulin 3.0 Albumin/Globulin Ratio 1.2 Radiography Diagnostic Testing: Clinical Impression(s) from Imaging Studies Lumbar Spine CT 01/10/25 08:15 IMPRESSION: 1. Mild progression of acute to subacute compression fracture at the superior endplate of L1. 2. Minimal retropulsion of the posterior superior wall of L1 resulting in minimal osseous spinal canal stenosis. 3. Grade 1 anterolisthesis of L4 on L5. 4. Moderate multilevel degenerative change, greatest at L5-S1. Reading [facility] Management Discussion w/another healthcare provider: Hospitalist (Dr Brown) Discharge Plan Dx/Rx/DC Orders Clinical Impression: Lumbar compression fracture, Acute back pain, Lumbar degenerative disc disease,Anterolisthesis of lumbar spine Disposition Disposition: [facility] What to do if you have Problems For any increased pain, shortness of breath, bleeding, nausea or vomiting, chestpain, or any unexpected problems, contact your Primary Care Provider. Call [facility] ([phone]) or report to the closest Emergency Room. Call 911 if necessary. 01/10/25 1532 <Electronically signed by Gus Garza DO> Cosigner Signature (if applicable): CC: Dr. aD Castro MD ~ Signed [facility] Work Phone: 1(499) 825-412405-19-2025 Discharge summary [facility] Medical Records Department [address] [place] [address] Emergency Department Summary 01/10/25 MR#: [id number] Acct: [id number] Name: JENNI STRICKLAND Rep #:[id number] : 1940 84 From: Gus Allen PCP: Dr. Da Castro MD Status:ADM I NO Location: [place] [address] HPI History of Present Illness Chief Complaint: Back Informant: patient and EMS Narrative Narrative: 84-year-old female presenting to the emergency room with low back pain. Patientstates that last week she was seen in the emergency department for sudden onset of back pain. She states that she was bent over putting gas in the mower when she suddenly got a sharp pain in the midline of the lumbar region. She states that she underwent a CT scan that showed a compression fracture. Review of the chartshows a mild compression fracture of L1 was read by radiology. Patient denies any radicular symptoms. She denies any difficulty with bowel or bladder control. Last bowel movement was yesterday. She states she was given 3 days ofpain medication and has no more that pain medicine. She states she was susan hernandez the name of her doctor to follow-up with but she does not know that Dr. Mendez did not schedule follow-up with them or primary care. She states last night she took a Tylenol PM and slept through the night but this morning she was unable toget up out of bed. She states her has stage IV cancer and cannot reallycare for so he called the ambulance. She denies any fevers. No rashes. She states that she has a IcyHot patch on the low back. She denies any abdominal pain. No urinary symptoms. [facility] Medical History (Updated 01/10/25 @ 09:[address] 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 Home Medications ?Medication ?Instructions ?Recorded ?Last Taken ?Type furosemide 20 mg tablet 20 mg PO DAILY PRN PRN leg 0 11/29/20 01/10/25 Rx swelling ##0 esomeprazole magnesium 40 mg 40 mg PO QAM #90 caps 08/1701/10/25 Rx capsule,delayed release amlodipine 2.5 mg tablet 2.5 mg PO DAILY 01/10/25 History calcium carbonate (Oyster Shell 500 mg PO DAILY 01/10/25 History Calcium) lisinopril 20 mg tablet 20 mg PO DAILY 01/10/2512/23 History lysine 500 mg tablet (L-Lysine) 500 mg PO DAILY 01/10/25 History zinc acetate 50 mg (zinc) capsule 50 mg PO DAILY 01/1001/10/25 History (Galzin) Allergy/AdvReac Type Severity Reaction Status Date / Time Latex, Natural Rubber Allergy Mild Verified 01/10/25 07:27 simvastatin (From Zocor) Allergy Mild Verified 01/10/25 07:27 guaifenesin (From Robitussin) Allergy Unknown Verified 01/10/25 07:27 Penicillins Allergy Anaphylaxis Verified 01/10/25 07:27 Sulfa (Sulfonamide Allergy Unknown Verified 01/10/25 07:27 Antibiotics) Family History Mother Colon cancer Father Colon cancer Sister Breast cancer Diabetes CVA (cerebral vascular accident) Cervical cancer Brother Heart disease Daughter COPD (chronic obstructive pulmonary disease) Son Diabetes Surgical History History of cataract extraction History of amputation of right great toe History of appendectomy history of left arm surgery history of hand reconstruction Social History Smoking Status: Never smoker ROS ROS ED Constitutional Constitutional ED: Denies chills, fever(s) or weight loss Eyes Eyes: Denies change in vision or diplopia ENT ENT ED: Denies ear pain, rhinorrhea or sore throat Cardiovascular Cardiovascular: Denies chest pain, orthopnea, palpitations or racing heartbeat Respiratory/Chest Respiratory/Chest: Denies cough, dyspnea or orthopnea Gastrointestinal Gastrointestinal: Denies abdominal pain, diarrhea, nausea or vomiting Genitourinary Genitourinary ED: Denies dysuria, hematuria or urinary frequency Musculoskeletal Musculoskeletal: Reports back pain; Denies arthralgias, myalgias or neck pain Integumentary Denies abscess or rash Neurologic Neurologic: Denies headache(s), paresthesias or weakness Psychiatric Psychiatric: Denies anxiety, depression, suicidal ideation or suicidal thoughts Endocrine Endocrinology: Denies polydipsia, polyphagia or polyuria Allergic/Immunologic Allergic/Immunologic ED: Denies mouth swelling, tongue swelling or urticaria EXAM Physical Exam Narrative Exam Narrative: Elderly female sitting slightly laying back in the bed. Const Vital Signs: 01/10/25 07:24 Temperature 97.8 F Temperature Source Oral Pulse Rate 67 Respiratory Rate 18 Blood Pressure 114/89 H Blood Pressure Mean 97 Pulse Ox 95 Oxygen Delivery Method Room Air Positive well nourished and well developed General Appearance ED: well developed and NAD HEENT Reports normocephalic, head/scalp atraumatic and moist mucous membranes Eyes PERRL and EOMs intact bilaterally Neck no lymphadenopathy, supple and no JVD Resp normal respiratory effort and clear to auscultation bilaterally Cardio regular rate, regular rhythm and no murmurs GI normal to inspection, nondistended, normoactive bowel sounds and non-tender Palpation: soft Back/Spine no CVA tenderness and normal ROM Back/Spine Narrative: Painful range of motion. She notes pain in the midline of the lower lumbar region. I do not appreciate any rashes. There is an icy patch on but I remove this to the evaluate the skin and do not appreciate rash. No significant tenderness to palpation in the paraspinal musculature. Extremity normal to inspection General Extremety ED: Negative for edema General Extremity: Negative for edema Neuro oriented x3, CN's II-XII intact bilaterally and no sensory deficits noted Neuro Narrative: no saddle anesthesia. normal LE reflexes. Normal sensation of legs. =strength inboth legs. Sensorium / Orientation: alert Motor Exam: strength 5/5 throughout Deep Tendon Reflexes: Rt Patellar (L4): 2+, Lt Patellar (L4): 2+, Rt Ankle (S1):2+ and Lt Ankle (S1): 2+ Deep Tendon Reflexes Back: Rt Patellar (L4): 2+, Lt Patellar (L4): 2+, Rt Ankle (S1): 2+ and Lt Ankle (S1): 2+ Psych mental status grossly normal Mood & Affect: Negative for depressed or tearful Skin no rashes or lesions noted and no wounds MDM MDM MDM Narrative Medical decision making narrative: Differential diagnosis includes but not limited to fracture lumbar stenosis cauda equina lumbar radiculopathy disc herniation hematoma infection Basic blood work shows a white count of 5.5 hemoglobin 13.9 platelet count is 238. CMP was obtainedshows an alkaline phosphatase of 107 creatinine 0[address] of the lumbar spine was repeated which shows progression of the fracture with mild retropulsion of the posterior wall. She is neurologically intact. Please see radiologist read for full details patient received pain medication. Shestill has significant pain with range of motion. I spoke with the patient and her . I think the appropriate next course would be admission MRI and spine evaluation. History & Record Review Discussion w/independent historian: Patient and Family Additional record(s) reviewed:: Prior ED visit and Prior labs Lab Data Attestation: I reviewed the patient's lab results. Labs: Laboratory Results - last 24 hr 01/10/25 07:57 WBC 5.5 RBC 4.62 Hgb 13.9 Hct 41.4 MCV 89.6 MCH 30.1 MCHC 33.6 RDW Std Deviation 39.0 RDW Coeff of Catrina 12.0 Plt Count 238 MPV 9.4 Immature Gran % (Auto) 0.200 Neut % (Auto) 61.9 Lymph % (Auto) 25.1 Redwood % (Auto) 10.7 H Eos % (Auto) 1.4 Baso % (Auto) 0.7 Absolute Neuts (auto) 3.4 Absolute Lymphs (auto) 1.39 Nucleated RBC % 0 Sodium 142 Potassium 3.9 Chloride 110 H Carbon Dioxide 22.2 Anion Gap 10 BUN 21 H Creatinine 0.87 Estim Creat Clear Calc 43.87 L Est GFR (MDRD) Non-Af 65 BUN/Creatinine Ratio 23.9 H Glucose 91 Calcium 9.4 Total Bilirubin 0.25 AST 24 ALT 11 Alkaline Phosphatase 107 H Total Protein 6.8 Albumin 3.8 Globulin 3.0 Albumin/Globulin Ratio 1.2 Radiography Diagnostic Testing: Clinical Impression(s) from Imaging Studies Lumbar Spine CT 01/10/25 08:15 IMPRESSION: 1. Mild progression of acute to subacute compression fracture at the superior endplate of L1. 2. Minimal retropulsion of the posterior superior wall of L1 resulting in minimal osseous spinal canal stenosis. 3. Grade 1 anterolisthesis of L4 on L5. 4. Moderate multilevel degenerative change, greatest at L5-S1. Reading [facility] Management Discussion w/another healthcare provider: Hospitalist (Dr Brown) Discharge Plan Dx/Rx/DC Orders Clinical Impression: Lumbar compression fracture, Acute back pain, Lumbar degenerative disc disease,Anterolisthesis of lumbar spine Disposition Disposition: [facility] Care [facility] What to do if you have Problems For any increased pain, shortness of breath, bleeding, nausea or vomiting, chestpain, or any unexpected problems, contact your Primary Care Provider. Call [facility] ([phone]) or report tothe closest Emergency Room. Call 911 if necessary. 01/10/25 1532 Cosigner Signature (if applicable): CC: Dr. Da Castro MD ~ Signed [facility]05-19-2025 Evaluation note* Diagnosis Onset Date Resolution Status Admit Date Acute back pain acute January 10, 2025 9:47am Anterolisthesis of lumbar spine acut e January 10, 2025 9:47am Lumbar compression fracture acute January 10, 2025 9:47am Lumbar degenerative disc disease acu te January 10, 2025 9:47am [facility] Work Phone: 1(392) 912-742905-19-2025 Evaluation note* Diagnosis Onset Date Resolution Status Admit Date Acute back pain acute January 10, 2025 9:47am Anterolisthesis of lumbar spine acut e January 10, 2025 9:47am Lumbar compression fracture acute January 10, 2025 9:47am Lumbar degenerative disc disease acu te January 10, 2025 9:47am Diverticulosis acute February 16, 2025 1:15pm Lumbar degenerative disc disease acu te February 16, 2025 1:15pm Vertigo acute February 16 1:15pm HUMPHRIES (dyspnea on exertion) chronic February 16, 2025 1:15pm Hiatal hernia with GERD with out esophagitis chronic February 16, 2025 1:15pm Hypertension chronic February 16, 2 025 1:15pm 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 February 16, 2025 1:15pm Psoriasis chronic February 16 1:15pm 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 February 16, 2025 1:15pm History of amputation of rig ht great toe resolved February 16, 2025 1:15pm History of appendectomy resolved J [facility] 2024 1:15pm History of cataract extraction resol eryn February 16, 2025 1:15pm history of hand reconstruction resol eryn February 16, 2025 1:15pm history of left arm surgery resolved February 16, 2025 1:15pm [facility] Work Phone: 1(310) 105-223305-19-2025 Evaluation note* Diagnosis Onset Date Resolution Status Admit Date Acute back pain acute January 10, 2025 9:47am Anterolisthesis of lumbar spine acut e January 10, 2025 9:47am Lumbar compression fracture acute January 10, 2025 9:47am Lumbar degenerative disc disease acu te January 10, 2025 9:47am Diverticulosis acute February 16, 2025 1:15pm Lumbar degenerative disc disease acu te February 16, 2025 1:15pm Vertigo acute February 16 1:15pm HUMPHRIES (dyspnea on exertion) chronic February 16, 2025 1:15pm Hiatal hernia with GERD with out esophagitis chronic February 16, 2025 1:15pm Hypertension chronic February 16, 2 025 1:15pm 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 February 16, 2025 1:15pm Psoriasis chronic February 16 1:15pm 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 February 16, 2025 1:15pm History of amputation of rig ht great toe resolved February 16, 2025 1:15pm History of appendectomy resolved J une 2024 1:15pm History of cataract extraction resol eryn February 16, 2025 1:15pm history of hand reconstruction resol eryn February 16, 2025 1:15pm history of left arm surgery resolved February 16, 2025 1:15pm Diverticulosis acute March 01, 2025 8:00am Lumbar degenerative disc disease acu te March 01, 2025 8:00am Vertigo acute March 01, 2025 8:00am HUMPHRIES (dyspnea on exertion) chronic March 01, 2025 8:00am Hiatal hernia with GERD with out esophagitis chronic March 01, 2025 8 :00am Hypertension chronic March 01 8:00am 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 March 01, 2025 8 :00am Psoriasis chronic March 01, 2025 8:00am 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 March 01, 2025 8 :00am History of amputation of rig ht great toe resolved March 01, 2025 8 :00am History of appendectomy resolved J anthony 2024 8:00am History of cataract extraction resol eryn March 01, 2025 8:00am history of hand reconstruction resol eryn March 01, 2025 8:00am history of left arm surgery resolved March 01, 2025 8:00am [facility] Work Phone: 1(221) 922-810405-19-2025 Radiology Diagnostic study note [facility] Imaging Services [address] [place] [address] [id number] Spine Lumbar without Contrast MR#: [id number] Acct: [id number] Name: JENNI STRICKLAND Rep #: [id number] : 1940 F 84 From: David Alvarado MD PCP: Dr. Da Castor MD Status: REG E R Study:Spine Lumbar without Contrast Date of E xam: 01/10/25 Exam# [id number] Ordering Dr: Leroy Garza DO PROCEDURE: SPINE LUMBAR WITHOUT CONTRAST 01/10/2025 REASON FOR EXAM: L1 COMPRESSION FRACTURE/INCREASED PAIN Increased lumbar pain. TECHNIQUE: Lumbar spine CT without contrast. Coronal and Sagittal reconstruction series were provided. One or more dose reduction techniques were used (e.g., Automated exposure control, adjustment of the mA and/or kV according to patient size, use of iterative reconstruction technique COMPARISON: December 31, 2024 RADIATION DOSE SUMMARY: CTDlvol: 15.65 mGy DLP: 521.23 mGycm FINDINGS: Vertebrae: Acute to subacute compression fracture at the superior endplate of L1with slight progression of vertebral body height loss compared to 12/31/2024 and more visualized fracture line at the superior endplate of L1. Minimal retropulsion of the posterior superior wall of L1 resulting in minimal osseous spinal canal stenosis. Alignment: Grade 1 anterolisthesis of L4 on L5 Vacuum disc phenomenon consistent with disc degeneration at L1-2, L4-5 and L5-S1. Advanced facet degenerative changes L4-5. Evaluation noncalcified disc pathology is markedly limited on CT without intrathecal contrast and is best evaluated with MRI. While evaluation is limited at L4-5 there does appear to be disc uncovering fromanterolisthesis anddiffuse disc bulge resulting in at least mild spinal canal and bilateral neural foraminal narrowing. Additional small disc bulges appear present at L2-3, L3-4 and L5-S1. Sacrum: Sacrum appears intact. CT/Spine Lumbar without Contrast IMPRESSION: 1. Mild progression of acute to subacute compression fracture at the superior endplate of L1. 2. Minimal retropulsion of the posterior superior wall of L1 resulting in minimal osseous spinal canal stenosis. 3. Grade 1 anterolisthesis of L4 on L5. 4. Moderate multilevel degenerative change, greatest at L5-S1. Reading Location: [facility] CC: Dr. Da Castro MD; Dr. Gus Garza, ~ [employer] Clipping: Signed [facility]05-09-2025 Discharge summary [facility] Medical Records Department [address] [place] [address] Emergency Department Summary 12/31/24 MR#: [id number] Acct: [id number] Name: JENNI STRICKLAND Rep #:[id number] : 1940 84 From: Johnson Allen PCP: Dr. Da Castro MD Status:REG E R Location: ED HPI History of Present Illness Chief Complaint: [facility] Medical History Psoriasis Urticaria Acute gastritis Esophagitis Diverticulitis of colon Chronic cough Hoarseness Overweight HUMPHRIES (dyspnea on exertion) Stage 1 mild COPD by GOLD classification Home Medications ?Medication ?Instructions ?Recorded ?Last Taken ?Type magnesium 250 mg tablet 125 mg PO QDAY supplement Unknown History potassium gluconate 595 mg (99 mg) 595 mg PO QDAY supp lement 10/09/17 Unknown History tablet aclidinium bromide 400 400 mcg IH BID breathing 02/12 Unknown History mcg/actuation breath activated powder inhaler amlodipine 10 mg tablet 10 mg PO QDAY ##0 11/29/20 U nknown Rx furosemide 20 mg tablet 20 mg PO DAILY PRN PRN leg 0 11/29/20 Unknown Rx swelling ##0 lisinopril 10 mg tablet 10 mg PO DAILY ##0 11/29/20 Unknown Rx dicyclomine 10 mg capsule 10 mg PO BID #60 caps Unknown Rx esomeprazole magnesium 40 mg 40 mg PO QAM #90 caps 08/17 Unknown Rx capsule,delayed release Allergy/AdvReac Type Severity Reaction Status Date / Time Latex, Natural Rubber Allergy Mild Verified 12/31/24 15:53 simvastatin (From Zocor) Allergy Mild Verified 12/31/24 15:53 guaifenesin (From Robitussin) Allergy Unknown Verified 12/31/24 15:53 Penicillins Allergy Anaphylaxis Verified 12/31/24 15:53 Sulfa (Sulfonamide Allergy Unknown Verified 12/31/24 15:53 Antibiotics) Family History Mother Colon cancer Father Colon cancer Sister Breast cancer Diabetes CVA (cerebral vascular accident) Cervical cancer Brother Heart disease Daughter COPD (chronic obstructive pulmonary disease) Son Diabetes Surgical History History of cataract extraction History of amputation of right great toe History of appendectomy history of left arm surgery history of hand reconstruction Social History Smoking Status: Never smoker EXAM Physical Exam Const Vital Signs: 12/31/24 15:45 12/31/24 17:45 12/31/24 19:00 Temperature 97.5 F L Temperature Source Temporal Pulse Rate 81 66 70 Respiratory Rate 16 Blood Pressure 197/125 H 153/87 H 158/79 H Blood Pressure Mean 149 109 105 Pulse Ox 98 97 96 Oxygen Delivery Method Room Air Room Air Room Air [facility] Narrative Medical decision making narrative: HISTORY OF PRESENT ILLNESS: Chief complaint: Back pain 84-year-old female history of constipation, hiatal hernia, GERD, UTI, COPD presents with back pain.States her back pain start after work in the garden yesterday. She further states she was doing yard work with her bent over. did not feel any immediate pain but noticed worsening pain overnight. Located lower back Patient denies any saddle anesthesia, urinary retention, bowel or bladder incontinence, lower extremity weakness, fever or IV drug use, no recent spinal manipulation or surgery, no recent urinary catheterization. REVIEW OF SYSTEMS: Pertinent positives: Low back pain Pertinent negatives: Bowel or bladder incontinence PHYSICAL EXAM: Nursing triage notes reviewed, Vital signs reviewed Constitutional: [facility] see [facility] HENT: MMM Eyes: Pupils equal round and reactive to light, Extraocular muscles intact Neck: No stridor, no JVD, full neck ROM Lungs: Clear to auscultation, No wheezing or rales. No increased work of breathing, no conversational dyspnea, no accessory muscle use, no nasal flaring. No respiratory distress noted Heart: Regular rate and rhythm, No murmurs, No rubs and No gallops, 2+ distal pulses (radial, femoral, posterior tibial) in all extremities Abdomen: Soft, there is no tenderness, rigidity, rebound or guarding, no obviousperitoneal signs, no palpable pulsatile abdominal masses, no auscultated abdominal bruit : No CVAT Extremities: No edema Neuro: No new focal neurological deficits, cranial nerves II through XII intact,5/5 strength in allpresent extremities. Intact sensation to light touch in all present extremities, 2+ reflexes bilateral patella tendons. Skin: No rash or lesions noted MEDICAL DECISION MAKING: Chief Complaint: please see HPI External records reviewed: Factors affecting care: none Social determinants of health: none History obtained from others: none Consults: none [facility] Narrative: Patient was initially hypertensive blood pressure 197/125, afebrile nontoxic- appearing. Initial exam without focal neurologic deficits in lower extremities. I considered the following differential diagnosis: Bony injury, cauda equina, conus medullaris, skeletal back pain The patient was treated with oral muscle laxer's, oral narcotics, oral steroids lidocaine patch andibuprofen ALL IMAGES (IF OBTAINED) HAVE BEEN PERSONALLY REVIEWED AND INTERPRETED BY MYSELF. CT scan of the lumbar spine shows acute/subacute L1 compression fracture The synthesis of the patient's history, physical exam, labs emergency thoracic L1 compression fracture On reevaluation patient blood pressure improved to 158/79. Pain improved. Willprescribe narcotics, muscle relaxers and steroids. Will give close spine follow-up The patient and/or family, caregivers express understanding. The patient and/orfamily, caregivers agrees with the plan. Shared decision making: I will have a discussion with the patient and or visitors regarding risk/benefits of further testing or admission. They will be made aware of of the risk/benefits inherent in this decision they will be given the opportunity to voice understanding. Total critical care time today provided was at least 0 minutes. This excludes separately billable procedures. Critical care time (if documented) is secondary to the patient having high probability ofclinically significant/life threatening deterioration in the patient's condition which required my urgent intervention. Impression: 1. Acute back pain 2. L1 compression fracture Dispo: Discharge This note was generated with WellDoc dictation software. It may contain incorrectwords, spelling, and punctuation that were not noted in review of the chart prior to signing. Radiography Diagnostic Testing: Clinical Impression(s) from Imaging Studies Lumbar Spine CT 12/31/24 16:11 IMPRESSION: Mild acute-subacute L1 compression deformity. Degenerative changes without high-grade canal stenosis or neural foraminal narrowing. Reading Location: [facility] Discharge Plan Triage Chief Complaint: Back ED Provider: Johnson Osborne Dx/Rx/DC Orders Prescriptions: No Action magnesium 250 mg tablet 125 mg PO QDAY potassium gluconate 595 mg (99 mg) tablet 595 mg PO QDAY dicyclomine 10 mg capsule 10 mg PO BID Qty: 60 2RF aclidinium bromide 400 MCG aerosol powdr breath activated 400 mcg IH BID amlodipine 10 mg tablet 10 mg PO QDAY Qty: 0 0RF Rx Instructions: Hold for systolic blood pressure less than 130 mmHg lisinopril 10 MG tablet 10 mg PO DAILY Qty: 0 0RF Rx Instructions: Hold for SBP less than 130 mmHg furosemide 20 mg tablet 20 mg PO DAILY PRN PRN (Reason: leg swelling) Qty: 0 0RF esomeprazole magnesium 40 mg capsule,delayed release(DR/EC) 40 mg PO QAM Qty: 90 1RF Primary Care Provider: Da Castro Referrals: Da Castro MD [Primary Care Provider] - Print Language: French What to do if you have Problems For any increased pain, shortness of breath, bleeding, nausea or vomiting, chestpain, or any unexpected problems, contact your Primary Care Provider. Call [facility] ([phone]) or report tothe closest Emergency Room. Call 911 if necessary. 12/31/242015 Cosigner Signature (if applicable): CC: Dr. Da Castro MD ~ Signed [facility]05-09-2025 Radiology Diagnostic study note [facility] Imaging Services [address] [place] [address] Spine Lumbar without Contrast MR#: [id number] Acct: [id number] Name: JENNI STRICKLAND Rep #: [id number] : 1940 F 84 From: Fabienne Givens MD PCP: Dr. Da Castro MD Status: REG E R Study:Spine Lumbar without Contrast Date of E xam: 12/31/24 Exam# [id number] Ordering Dr: Nina Osborne DO PROCEDURE: SPINE LUMBAR WITHOUT CONTRAST 12/31/2024 REASON FOR EXAM: BACK PAIN TECHNIQUE: Lumbar spine CT without contrast. Coronal and Sagittal reconstruction series were provided. One or more dose reduction techniques were used (e.g., Automated exposure control, adjustment of the mA and/or kV according to patient size, use of iterative reconstruction technique COMPARISON: None. FINDINGS: Vertebrae: Mild acute-subacute L1 compression deformity. Less than 10% loss of disc height. Remainder of the vertebral body heights are within normal limits. Disc spaces are maintained. Diffuse osteopenia. Multilevel degenerative changes, without high-grade canal stenosis or neural foraminal narrowing. Alignment: Lumbar lordosis is maintained. Grade 1 anterolisthesis of L4 on L5. Multilevel degenerative changes without high-grade canal stenosis or neural foraminal narrowing. Sacrum: Mild degenerative changes of the SI joints CT/Spine Lumbar without Contrast IMPRESSION: Mild acute-subacute L1 compression deformity. Degenerative changes without high-grade canal stenosis or neural foraminal narrowing. Reading Location: [facility] CC: Dr. Da Castro MD; Dr. Johnson Osborne DO ~ [employer] Clipping: Signed [facility]05-09-2025 NoteHNO ID: [id number] Author: SUNDEEP CASTANO APRN.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 Service: ? Author Type: Nurse Practitioner Type: Progress Notes Filed: 12/31/2024 15:37 Note Text: Patient came in with complaints of horrible mid back pain. Patient says she was pouring gas into the lumbar and felt something happen to her back. Patient says it is extremely uncomfortable but denies any difficulty using the restroom. Upon examination patient could not even get up out of the chair by herself. Patient is crying in so much pain. Patient says it feels like something is very wrong back there. Every step patient takes patient seems in extreme pain. Due to the mechanism of injury and pain level not matching patient's pain for the emergency room. Patient wants to take herself. Patient agreeable to care plan. [facility]05-09-2025 History of Present illness Narrative* Sundeep Castano APRN.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 - 12/31/2024 3:36 PM EDT Patient came in with complaints of horrible mid back pain. Patient says she was pouring gas into the lumbar and felt something happen to her back. Patient says it is extremely uncomfortable but denies any difficulty using the restroom. Upon examination patient could not even get up out of the chairby herself. Patient is crying in so much pain. Patient says it feels like something is very wrong back there. Every step patient takes patient seems in extreme pain. Due to the mechanism of injury and pain level not matching patient's pain for the emergency room. Patient wants to take herself. Patient agreeable to care plan. [facility] Discharge summary Author Johnson Osborne [facility] Note Date/Time December 31, 2024 8:16pm [facility] Medical Records Department [address] [place] [address] Emergency Department Summary 12/31/24 MR#: [id number] Acct: [id number] Name: JENNI STRICKLAND Rep #:[id number] : 1940 84 From: Johnson Allen PCP: Dr. Da Castro MD Status:REG E R Location: ED HPI History of Present Illness Chief Complaint: Back [facility] Medical History Psoriasis Urticaria Acute gastritis Esophagitis Diverticulitis of colon Chronic cough Hoarseness Overweight HUMPHRIES (dyspnea on exertion) Stage 1 mild COPD by GOLD classification Home Medications ?Medication ?Instructions ?Recorded ?Last Taken ?Type magnesium 250 mg tablet 125 mg PO QDAY supplement Unknown History potassium gluconate 595 mg (99 mg) 595 mg PO QDAY supp lement 10/09/17 Unknown History tablet aclidinium bromide 400 400 mcg IH BID breathing 02/12 Unknown History mcg/actuation breath activated powder inhaler amlodipine 10 mg tablet 10 mg PO QDAY ##0 11/29/20 U nknown Rx furosemide 20 mg tablet 20 mg PO DAILY PRN PRN leg 0 11/29/20 Unknown Rx swelling ##0 lisinopril 10 mg tablet 10 mg PO DAILY ##0 11/29/20 Unknown Rx dicyclomine 10 mg capsule 10 mg PO BID #60 caps Unknown Rx esomeprazole magnesium 40 mg 40 mg PO QAM #90 caps 08/17 Unknown Rx capsule,delayed release Allergy/AdvReac Type Severity Reaction Status Date / Time Latex, Natural Rubber Allergy Mild Verified 12/31/24 15:53 simvastatin (From Zocor) Allergy Mild Verified 12/31/24 15:53 guaifenesin (From Robitussin) Allergy Unknown Verified 12/31/24 15:53 Penicillins Allergy Anaphylaxis Verified 12/31/24 15:53 Sulfa (Sulfonamide Allergy Unknown Verified 12/31/24 15:53 Antibiotics) Family History Mother Colon cancer Father Colon cancer Sister Breast cancer Diabetes CVA (cerebral vascular accident) Cervical cancer Brother Heart disease Daughter COPD (chronic obstructive pulmonary disease) Son Diabetes Surgical History History of cataract extraction History of amputation of right great toe History of appendectomy history of left arm surgery history of hand reconstruction Social History Smoking Status: Never smoker EXAM Physical Exam Const Vital Signs: 12/31/24 15:45 12/31/24 17:45 12/31/24 19:00 Temperature 97.5 F L Temperature Source Temporal Pulse Rate 81 66 70 Respiratory Rate 16 Blood Pressure 197/125 H 153/87 H 158/79 H Blood Pressure Mean 149 109 105 Pulse Ox 98 97 96 Oxygen Delivery Method Room Air Room Air Room Air MDM MDM MDM Narrative Medical decision making narrative: HISTORY OF PRESENT ILLNESS: Chief complaint: Back pain 84-year-old female history of constipation, hiatal hernia, GERD, UTI, COPD presents with back pain. States her back pain start after work in the garden yesterday. She further states she was doing yard work with her bent over. did not feel any immediate pain but noticed worsening pain overnight. Located lower back Patient denies any saddle anesthesia, urinary retention, bowel or bladder incontinence, lower extremity weakness, fever or IV drug use, no recent spinal manipulation or surgery, no recent urinary catheterization. REVIEW OF SYSTEMS: Pertinent positives: Low back pain Pertinent negatives: Bowel or bladder incontinence PHYSICAL EXAM: Nursing triage notes reviewed, Vital signs reviewed Constitutional: please see mdm HENT: MMM Eyes: Pupils equal round and reactive to light, Extraocular muscles intact Neck: No stridor, no JVD, full neck ROM Lungs: Clear to auscultation, No wheezing or rales. No increased work of breathing, no conversational dyspnea, no accessory muscle use, no nasal flaring. No respiratory distress noted Heart: Regular rate and rhythm, No murmurs, No rubs and No gallops, 2+ distal pulses (radial, femoral, posterior tibial) in all extremities Abdomen: Soft, there is no tenderness, rigidity, rebound or guarding, no obviousperitoneal signs, no palpable pulsatile abdominal masses, no auscultated abdominal bruit : No CVAT Extremities: No edema Neuro: No new focal neurological deficits, cranial nerves II through XII intact,5/5 strength in all present extremities. Intact sensation to light touch in all present extremities, 2+ reflexes bilateral patella tendons. Skin: No rash or lesions noted MEDICAL DECISION MAKING: Chief Complaint: please see HPI External records reviewed: Factors affecting care: none Social determinants of health: none History obtained from others: none Consults: none [facility] Narrative: Patient was initially hypertensive blood pressure 197/125, afebrile nontoxic-appearing. Initial exam without focal neurologic deficits in lower extremities. I considered the following differential diagnosis: Bony injury, cauda equina, conus medullaris, skeletal back pain The patient was treated with oral muscle laxer's, oral narcotics, oral steroids lidocaine patch and ibuprofen ALL IMAGES (IF OBTAINED) HAVE BEEN PERSONALLY REVIEWED AND INTERPRETED BY MYSELF. CT scan of the lumbar spine shows acute/subacute L1 compression fracture The synthesis of the patient's history, physical exam, labs emergency thoracic L1 compression fracture On reevaluation patient blood pressure improved to 158/79. Pain improved. Willprescribe narcotics, muscle relaxers and steroids. Will give close spine follow-up The patient and/or family, caregivers express understanding. The patient and/orfamily, caregivers agrees with the plan. Shared decision making: I will have a discussion with the patient and or visitors regarding risk/benefits of further testing or admission. They will be made aware of of the risk/benefits inherent in this decision they will be given the opportunity to voice understanding. Total critical care time today provided was at least 0 minutes. This excludes separately billable procedures. Critical care time (if documented) is secondary to the patient having high probability of clinically significant/life threatening deterioration in the patient's condition which required my urgent intervention. Impression: 1. Acute back pain 2. L1 compression fracture Dispo: Discharge This note was generated with WellDoc dictation software. It may contain incorrectwords, spelling, and punctuation that were not noted in review of the chart prior to signing. Radiography Diagnostic Testing: Clinical Impression(s) from Imaging Studies Lumbar Spine CT 12/31/24 16:11 IMPRESSION: Mild acute-subacute L1 compression deformity. Degenerative changes without high-grade canal stenosis or neural foraminal narrowing. Reading Location: [facility] Discharge Plan Triage Chief Complaint: Back ED Provider: Johnson Osborne Dx/Rx/DC Orders Prescriptions: No Action magnesium 250 mg tablet 125 mg PO QDAY potassium gluconate 595 mg (99 mg) tablet 595 mg PO QDAY dicyclomine 10 mg capsule 10 mg PO BID Qty: 60 2RF aclidinium bromide 400 MCG aerosol powdr breath activated 400 mcg IH BID amlodipine 10 mg tablet 10 mg PO QDAY Qty: 0 0RF Rx Instructions: Hold for systolic blood pressure less than 130 mmHg lisinopril 10 MG tablet 10 mg PO DAILY Qty: 0 0RF Rx Instructions: Hold for SBP less than 130 mmHg furosemide 20 mg tablet 20 mg PO DAILY PRN PRN (Reason: leg swelling) Qty: 0 0RF esomeprazole magnesium 40 mg capsule,delayed release(DR/EC) 40 mg PO QAM Qty: 90 1RF Primary Care Provider: Da Castro Referrals: Da Castro MD [Primary Care Provider] - Print Language: French What to do if you have Problems For any increased pain, shortness of breath, bleeding, nausea or vomiting, chestpain, or any unexpected problems, contact your Primary Care Provider. Call [facility] ([phone]) or report to the closest Emergency Room. Call 911 if necessary. 12/31/242015 <Electronically signed by Johnson Osborne DO> Cosigner Signature (if applicable): CC: Dr. Da Castro MD ~ Signed [facility] Work Phone: 1(330) 464-491205-06-2025 NotePatient Outreach (INTMMN) JENNI STRICKLAND V ([id number]) 1940 F Date Time Provider Department 12/28/24 DA CASTRO INTMMN During your visit today, we recorded the following information about you: Allergies As of Date: 12/28/2024 Noted Allergy Reaction PENICILLINS 06/06/2005 10 - Anaphylaxis ROBITUSSIN A-C (CODEINE-GUAIFENES*06/06/2005 10 - Anaphylaxis WASPS 03/21/2014 7 - Swelling Comments: swelling at sting site ELASTIC 06/07/2005 2 - Rash GLOVES, LATEX 06/14/2006 2 - Rash Comments: blisters HCTZ (THIAZIDES) 10/09/2015 5 - Intolerance Comments: Pins and needles sensation SULFA (SULFONAMIDE ANTIBIOTICS) 06/06/2005 5 - Intolerance ZOCOR (SIMVASTATIN) 06/19/2010 17 - Myalgia Comments: muscle ache Date Reviewed: 12/10/2024 Reviewed by: Umm Vazquez MA - Fully Assessed Visit Diagnosis:Essential hypertension [I10] Order(s):BASIC METABOLIC PANEL [SQBMP] Order #: [id number] FUTURE Prescriptions as of 12/31/2024 - furosemide (LASIX) 20 mg tablet Take 1 tablet by mouth once daily. - lisinopril (ZESTRIL) 20 mg tablet Take 1 tablet by mouth every afternoon. - amLODIPine (NORVASC) 2.5 mg tablet Take 1 tablet by mouth once daily. - naproxen (NAPROSYN) 500 mg tablet Take 1 tablet by mouth two times a day as needed (for pain/inflammation). Take with food. - omeprazole (PRILOSEC) 20 mg capsule Take 1 capsule by mouth daily before breakfast. 1/2 hr before meal. - estradiol (ESTRACE) 0.01 % (0.1 mg/gram) vaginal cream Use 1 g vaginally one time a week. - umeclidinium (INCRUSE ELLIPTA) 62.5 mcg/actuation inhaler Inhale 1 Puff as instructed once daily. - polyethylene glycol 3350 (MIRALAX ORAL) Take 17 g by mouth as needed (constipation). - Lactobacillus acidophilus (FLORAJEN ACIDOPHILUS) 20 billion cell cap Take 460 mg by mouth once daily. - famotidine (PEPCID) 20 mg tablet Take 1 tablet by mouth at bedtime as needed. - cyanocobalamin (VITAMIN B-12) 1,000 mcg tab Take 1 tablet by mouth once daily. - fluticasone (FLONASE) 50 mcg/actuation nasal spray Use 2 Sprays in each nostril once daily. - calcium carbonate ([id number])(TUMS 500 MG CHEWABLE TAB) Take 1,000 mg by mouth two times a day as needed (GERD). - POTASSIUM GLUCONATE 595 MG (99 MG) TAB Take 595 mg by mouth once daily. - MAGNESIUM 250 MG TAB Take 250 mg by mouth once daily. - calcium carbonate/vitamin d3(CALCIUM 600 WITH VITAMIN D3 600 MG (1,500)-200 UNIT TAB) Take 1 tablet by mouth once daily. Problem List As Of Date 12/28/2024 Noted Resolved Esophagitis, unspecified [K20.90] 12/09/2018 Acute gastritis [535.0] 12/09/2018 Diverticulitis [K57.92] Disorder of bone and cartilage, unspecified [M8* 12/09/2018 DIAPHRAGMATIC HERNIA [K44.9] FAMILY HX GI MALIGNANCY [Z80.0] 08/22/2008 Urticaria [L50.9] 02/01/2010 Dyslipidemia (high LDL; low HDL) [E78.5] 02/01/2010 Closed fracture of metatarsal bone(s) [S92.309A]03/12/2011 12/09/2018 Umbilical hernia without mention of obstruction*06/29/2012 Cramp of both lower extremities [R25.2] 04/03/2015 Leg cramps [R25.2] 04/03/2015 12/09/2018 Tingling in extremities [R20.2] 04/03/2015 12/09/2018 COPD (chronic obstructive pulmonary disease) (H*04/03/2015 Essential hypertension [I10] 11/13/2015 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 If your leg becomes more red, painful, or begins to drain, call us right away so we can reassess and, if needed, restart antibiotics. Continue taking your blood pressure medication as prescribed. documented in this encounter[address]18-2025 NoteHNO ID: [id number] Author: MONA MANCILLA APRN.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 Service: ? Author Type: Nurse Practitioner Type: Progress Notes Filed: 12/10/2024 13:01 Note Text: CC: Patient presents with: Recheck: Follow up cellulitis and BP HPI Jenni Strickland is a 84 year old female who presents today for cellulitis and BP follow up. Recording using [employer] software for draft documentation of the visit was discussed with the patient/authorized sales representative livestock; all questions welcomed and answered. Patient/authorized sales representative livestock agreed to proceed Cellulitis: - Significant improvement in leg redness; no warmth, drainage, fever, or chills. - Pain has resolved. - Completed 8.5 days of doxycycline; 1.5 days remaining. - No new drainage on sheets. Hypertension: - Took antihypertensive medication this morning. - Home blood pressure readings this week ranged from 120/64 to 150/unknown. - Denies headaches, dizziness, edema, palpitations, angina, or dyspnea. - Reports feeling well with good energy levels. - Experiencing emotional stress due to the recent loss of two close friends and unsure if this has been affecting her BP readings. Was not checking her BP prior to these losses. 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 furosemide (LASIX) 20 mg tablet Take 1 tablet by mouth once daily. lisinopril (ZESTRIL) 20 mg tablet Take 1 tablet by mouth every afternoon. amLODIPine (NORVASC) 2.5 mg tablet Take 1 tablet by mouth once daily. naproxen (NAPROSYN) 500 mg tablet Take 1 tablet by mouth two times a day as needed (for pain/inflammation). Take with food. omeprazole (PRILOSEC) 20 mg capsule Take 1 capsule by mouth daily before breakfast. 1/2 hr before meal. estradiol (ESTRACE) 0.01 % (0.1 mg/gram) vaginal cream Use 1 g vaginally one time a week. umeclidinium (INCRUSE ELLIPTA) 62.5 mcg/actuation inhaler Inhale 1 Puff as instructed once daily. polyethylene glycol 3350 (MIRALAX ORAL) Take 17 g by mouth as needed (constipation). Lactobacillus acidophilus (FLORAJEN ACIDOPHILUS) 20 billion cell cap Take 460 mg by mouth once daily. (Patient taking differently: Take 460 mg by mouth as needed.) famotidine (PEPCID) 20 mg tablet Take 1 tablet by mouth at bedtime as needed. cyanocobalamin (VITAMIN B-12) 1,000 mcg tab Take 1 tablet by mouth once daily. fluticasone (FLONASE) 50 mcg/actuation nasal spray Use 2 Sprays in each nostril once daily. calcium carbonate ([id number])(TUMS 500 MG CHEWABLE TAB) Take 1,000 mg by mouth two times a day as needed (GERD). POTASSIUM GLUCONATE 595 MG (99 MG) TAB Take 595 mg by mouth once daily. MAGNESIUM 250 MG TAB Take 250 mg by mouth once daily. calcium carbonate/vitamin d3(CALCIUM 600 WITH VITAMIN D3 600 MG (1,500)-200 UNIT TAB) Take 1 tablet by mouth once daily. FAMILY HISTORY Problem Relation Age of Onset Colon Cancer Mother Colon Cancer Father other (colon polyps) Father Stroke Maternal Grandmother Colon Cancer Paternal Grandfather Breast Cancer Sister Cervical Cancer Sister COPD Daughter Heart Brother Coronary Artery Disease Sister fatal DC Coronary Artery Disease Brother fatal DC Diabetes Sister Stroke Sister Diabetes Son Social History Tobacco Use Smoking status: Never Smokeless tobacco: Never Vaping Use Vaping status: Never Used Substance Use Topics Alcohol use: No Drug use: No PHYSICAL EXAM BP 135/74 (more content not included)...[facility]04-18-2025 History of Present illness Narrative* Mona Mancilla APRN.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 - 12/10/2024 12:36 PM EDT CC: Patient presents with: Recheck: Follow up cellulitis and BP HPI Jenni Strickland is a 84 year old female who presents today for cellulitis and BP follow up. Recording using [employer] software for draft documentation of the visit was discussed with the patient/authorized sales representative livestock; all questions welcomed and answered. Patient/authorized sales representative livestock agreed to proceed Cellulitis: - Significant improvement in leg redness; no warmth, drainage, fever, or chills. - Pain has resolved. - Completed 8.5 days of doxycycline; 1.5 days remaining. - No new drainage on sheets. Hypertension: - Took antihypertensive medication this morning. - Home blood pressure readings this week ranged from 120/64 to 150/unknown. - Denies headaches, dizziness, edema, palpitations, angina, or dyspnea. - Reports feeling well with good energy levels. - Experiencing emotional stress due to the recent loss of two close friends and unsure if this has been affecting her BP readings. Was not checking her BP prior to these losses. 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 furosemide (LASIX) 20 mg tablet Take 1 tablet by mouth once daily. lisinopril (ZESTRIL) 20 mg tablet Take 1 tablet by mouth every afternoon. amLODIPine (NORVASC) 2.5 mg tablet Take 1 tablet by mouth once daily. naproxen (NAPROSYN) 500 mg tablet Take 1 tablet by mouth two times a day as needed (for pain/inflammation). Take with food. omeprazole (PRILOSEC) 20 mg capsule Take 1 capsule by mouth daily before breakfast. 1/2 hr before meal. estradiol (ESTRACE) 0.01 % (0.1 mg/gram) vaginal cream Use 1 g vaginally one time a week. umeclidinium (INCRUSE ELLIPTA) 62.5 mcg/actuation inhaler Inhale 1 Puff as instructed once daily. polyethylene glycol 3350 (MIRALAX ORAL) Take 17 g by mouth as needed (constipation). Lactobacillus acidophilus (FLORAJEN ACIDOPHILUS) 20 billion cell cap Take 460 mg by mouth once daily. (Patient taking differently: Take 460 mg by mouth as needed.) famotidine (PEPCID) 20 mg tablet Take 1 tablet by mouth at bedtime as needed. cyanocobalamin (VITAMIN B-12) 1,000 mcg tab Take 1 tablet by mouth once daily. fluticasone (FLONASE) 50 mcg/actuation nasal spray Use 2 Sprays in each nostril once daily. calcium carbonate ([id number])(TUMS 500 MG CHEWABLE TAB) Take 1,000 mg by mouth two times a day as needed (GERD). POTASSIUM GLUCONATE 595 MG (99 MG) TAB Take 595 mg by mouth once daily. MAGNESIUM 250 MG TAB Take 250 mg by mouth once daily. calcium carbonate/vitamin d3(CALCIUM 600 WITH VITAMIN D3 600 MG (1,500)-200 UNIT TAB) Take 1 tabletby mouth once daily. FAMILY HISTORY Problem Relation Age of Onset Colon Cancer Mother Colon Cancer Father other (colon polyps) Father Stroke Maternal Grandmother Colon Cancer Paternal Grandfather Breast Cancer Sister Cervical Cancer Sister COPD Daughter Heart Brother Coronary Artery Disease Sister fatal DC Coronary Artery Disease Brother fatal DC Diabetes Sister Stroke Sister Diabetes Son Social History Tobacco Use Smoking status: Never Smokeless tobacco: Never Vaping Use Vaping status: Never Used Substance Use Topics Alcohol use: No Drug use: No PHYSICAL EXAM BP 135/74 Pulse 77 Resp 16 SpO2 97% General Appearance: well appearing, in no acute distress, alert Skin: no increased warmth, scabbed area almost fully healed, post inflammatory changes around woundbut no erythema. No edema or tenderness Lungs: Lungs clear to auscultation. No wheezing, rhonchi, rales. Heart: RRR without murmur, gallop, or rubs. No ectopy Health maintenance reviewed with patient: Depression Screening due on 01/04/2025 Anxiety Screening due on 01/04/2025 DTaP,Tdap,Td Vaccine(1 - Tdap) due on 01/04/2025 RSV Vaccine(1 - 1-dose 75+ series) due on 01/04/2025 Shingrix Vaccine(2 of 3) due on 01/04/2025 Diabetes Screening due on 01/16/2027 Bone Density Screening Completed Spirometry Completed Influenza Vaccine Completed Advance Directive Discussion Completed Pneumococcal Vaccine: 50+ Completed Covid-19 Vaccine Discontinued DATA REVIEWED: No new labs Assessment/Plan 1. Cellulitis of left lower extremity (L03.116) - Significant improvement noted; redness almost completely resolved, no warmth, drainage, or tenderness observed. - Completed prescribed course of doxycycline with 1.5 days remaining; no extension of antibiotic therapy necessary. - Advised to monitor for any recurrence of erythema or tenderness and to report immediately for potential re-initiation of antibiotic treatment. 2. Essential hypertension (I10) - Blood pressure readings at home ranged from 120/64 to 150/xx mmHg; no associated cephalgia, vertigo, edema, palpitations, angina, or dyspnea reported. - Current BP measured at 135/74 mmHg; goal is <130/70 mmHg. - Discussed potential for stress and improper technique to affect home BP readings. - Continue current antihypertensive regimen. - Encouraged regular monitoring of blood pressure at home with proper technique. - keep upcoming appointment with pcp for further review Prescription instructions reviewed with patient as applicable. Potential red flag symptoms discussed with the patient. Reviewed appropriate action plan to take if red flag symptoms occur. Patient agreeable to treatment plan. Mona Mancilla APRN.CNP [facility] NoteHNO ID: [id number] Author: MONA MANCILLA APRN.CNP Service: ? Author Type: Nurse Practitioner Type: Progress Notes Filed: 12/06/2024 08:10 Note Text: CC: Patient presents with: Recheck: Cellulitis follow up HPI Jenni Strickland is a 84 year old female who presents today for follow up on cellulitis but BP is also elevated due to her not taking her BP meds this morning. Recording using [employer] software for draft documentation of the visit was discussed with the patient/authorized sales representative livestock; all questions welcomed and answered. Patient/authorized sales representative livestock agreed to proceed Leg Wound: - Noted improvement in pain, redness, and swelling. - Mild tenderness and residual redness around the wound. - Minimal drainage observed on sheets prior to the visit. - Denies fever, chills, body aches, or dyspnea. - Taking doxycycline BID for 3 days; 7 days remaining. HTN: Ms. Strickland denies headache, chest pain, palpitations, dyspnea, and peripheral edema. Patient denies any side effects of her medication(s) and is compliant with their regimen except has not taken yet this morning. 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 furosemide (LASIX) 20 mg tablet Take 1 tablet by mouth once daily. lisinopril (ZESTRIL) 20 mg tablet Take 1 tablet by mouth every afternoon. amLODIPine (NORVASC) 2.5 mg tablet Take 1 tablet by mouth once daily. naproxen (NAPROSYN) 500 mg tablet Take 1 tablet by mouth two times a day as needed (for pain/inflammation). Take with food. omeprazole (PRILOSEC) 20 mg capsule Take 1 capsule by mouth daily before breakfast. 1/2 hr before meal. estradiol (ESTRACE) 0.01 % (0.1 mg/gram) vaginal cream Use 1 g vaginally one time a week. umeclidinium (INCRUSE ELLIPTA) 62.5 mcg/actuation inhaler Inhale 1 Puff as instructed once daily. polyethylene glycol 3350 (MIRALAX ORAL) Take 17 g by mouth as needed (constipation). Lactobacillus acidophilus (FLORAJEN ACIDOPHILUS) 20 billion cell cap Take 460 mg by mouth once daily. (Patient taking differently: Take 460 mg by mouth as needed.) famotidine (PEPCID) 20 mg tablet Take 1 tablet by mouth at bedtime as needed. cyanocobalamin (VITAMIN B-12) 1,000 mcg tab Take 1 tablet by mouth once daily. fluticasone (FLONASE) 50 mcg/actuation nasal spray Use 2 Sprays in each nostril once daily. calcium carbonate ([id number])(TUMS 500 MG CHEWABLE TAB) Take 1,000 mg by mouth two times a day as needed (GERD). POTASSIUM GLUCONATE 595 MG (99 MG) TAB Take 595 mg by mouth once daily. MAGNESIUM 250 MG TAB Take 250 mg by mouth once daily. calcium carbonate/vitamin d3(CALCIUM 600 WITH VITAMIN D3 600 MG (1,500)-200 UNIT TAB) Take 1 tablet by mouth once daily. FAMILY HISTORY Problem Relation Age of Onset Colon Cancer Mother Colon Cancer Father other (colon polyps) Father Stroke Maternal Grandmother Colon Cancer Paternal Grandfather Breast Cancer Sister Cervical Cancer Sister COPD Daughter Heart Brother Coronary Artery Disease Sister fatal DC Coronary Artery Disease Brother fatal DC Diabetes Sister Stroke Sister Diabetes Son Social History Tobacco Use Smoking status: Never Smokeless tobacco: Never Vaping Use Vaping status: Never Used Substance Use Topics Alcohol use: No Drug use: No (more content not included)...[facility]04-14-2025 History of Present illness Narrative* Mona Mancilla APRN.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 - 12/06/2024 8:06 AM EDT CC: Patient presents with: Recheck: Cellulitis follow up HPI Jenni Strickland is a 84 year old female who presents today for follow up on cellulitis but BP is alsoelevated due to her not taking her BP meds this morning. Recording using [employer] software for draft documentation of the visit was discussed with the patient/authorized sales representative livestock; all questions welcomed and answered. Patient/authorized sales representative livestock agreed to proceed Leg Wound: - Noted improvement in pain, redness, and swelling. - Mild tenderness and residual redness around the wound. - Minimal drainage observed on sheets prior to the visit. - Denies fever, chills, body aches, or dyspnea. - Taking doxycycline BID for 3 days; 7 days remaining. HTN: Ms. Strickland denies headache, chest pain, palpitations, dyspnea, and peripheral edema. Patient denies any side effects of her medication(s) and is compliant with their regimen except has not taken yet this morning. 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 furosemide (LASIX) 20 mg tablet Take 1 tablet by mouth once daily. lisinopril (ZESTRIL) 20 mg tablet Take 1 tablet by mouth every afternoon. amLODIPine (NORVASC) 2.5 mg tablet Take 1 tablet by mouth once daily. naproxen (NAPROSYN) 500 mg tablet Take 1 tablet by mouth two times a day as needed (for pain/inflammation). Take with food. omeprazole (PRILOSEC) 20 mg capsule Take 1 capsule by mouth daily before breakfast. 1/2 hr before meal. estradiol (ESTRACE) 0.01 % (0.1 mg/gram) vaginal cream Use 1 g vaginally one time a week. umeclidinium (INCRUSE ELLIPTA) 62.5 mcg/actuation inhaler Inhale 1 Puff as instructed once daily. polyethylene glycol 3350 (MIRALAX ORAL) Take 17 g by mouth as needed (constipation). Lactobacillus acidophilus (FLORAJEN ACIDOPHILUS) 20 billion cell cap Take 460 mg by mouth once daily. (Patient taking differently: Take 460 mg by mouth as needed.) famotidine (PEPCID) 20 mg tablet Take 1 tablet by mouth at bedtime as needed. cyanocobalamin (VITAMIN B-12) 1,000 mcg tab Take 1 tablet by mouth once daily. fluticasone (FLONASE) 50 mcg/actuation nasal spray Use 2 Sprays in each nostril once daily. calcium carbonate ([id number])(TUMS 500 MG CHEWABLE TAB) Take 1,000 mg by mouth two times a day as needed (GERD). POTASSIUM GLUCONATE 595 MG (99 MG) TAB Take 595 mg by mouth once daily. MAGNESIUM 250 MG TAB Take 250 mg by mouth once daily. calcium carbonate/vitamin d3(CALCIUM 600 WITH VITAMIN D3 600 MG (1,500)-200 UNIT TAB) Take 1 tabletby mouth once daily. FAMILY HISTORY Problem Relation Age of Onset Colon Cancer Mother Colon Cancer Father other (colon polyps) Father Stroke Maternal Grandmother Colon Cancer Paternal Grandfather Breast Cancer Sister Cervical Cancer Sister COPD Daughter Heart Brother Coronary Artery Disease Sister fatal DC Coronary Artery Disease Brother fatal DC Diabetes Sister Stroke Sister Diabetes Son Social History Tobacco Use Smoking status: Never Smokeless tobacco: Never Vaping Use Vaping status: Never Used Substance Use Topics Alcohol use: No Drug use: No PHYSICAL EXAM BP 156/82 Pulse 84 Resp 16 SpO2 95% General Appearance: well appearing, in no acute distress, alert Skin: wound to LLE healing well with receding redness, no further increased warmth, no open areas or drainage noted. Scabbed center intact at this time Eyes: conjunctiva pink and moist, no icterus, sclera white, non-injected Lungs: Lungs clear to auscultation. No wheezing, rhonchi, rales. Heart: RRR without murmur, gallop, or rubs. No ectopy Health maintenance reviewed with patient: Depression Screening due on 01/04/2025 Anxiety Screening due on 01/04/2025 DTaP,Tdap,Td Vaccine(1 - Tdap) due on 01/04/2025 RSV Vaccine(1 - 1-dose 75+ series) due on 01/04/2025 Shingrix Vaccine(2 of 3) due on 01/04/2025 Diabetes Screening due on 01/16/2027 Bone Density Screening Completed Spirometry Completed Influenza Vaccine Completed Advance Directive Discussion Completed Pneumococcal Vaccine: 50+ Completed Covid-19 Vaccine Discontinued DATA REVIEWED: No new labs Assessment/Plan 1. Cellulitis of left lower extremity (L03.116) - Noted improvement in erythema, warmth, and swelling; still some residual redness and tenderness around the wound. - Patient has been compliant with doxycycline BID for 3 days; instructed to complete the full 10-day course. - Scheduled follow-up appointment on Friday to reassess the area. If erythema persists, may extend antibiotic therapy. - Emphasized the importance of completing the full antibiotic course to ensure complete resolution of the infection. YOU SHOULD SEEK MEDICAL ATTENTION IMMEDIATELY IF ANY OF THE FOLLOWING OCCURS: Symptoms keep getting worse despite treatment. The infection size increases and redness spreads. You develop fevers (temperature higher than 100.4 F / 38 C). You feel weak or lightheaded. Red streaks spread from the infection site. Any other new symptoms or concerns. 2. Essential hypertension - ICD9: 401.9, ICD10: I10 - Uncontrolled due to not taking meds this morning - will revaluate at follow up - take medications prior to visit on Friday. - Continue current medications - Recommend home blood pressure monitoring, to bring results to next visit - Encouraged sodium restriction, DASH or Mediterranean diet - Recommend regular aerobic exercise Prescription instructions reviewed with patient as applicable. Potential red flag symptoms discussed with the patient. Reviewed appropriate action plan to take if red flag symptoms occur. Patient agreeable to treatment plan. Mona Mancilla APRN.CNP documented in this [facility]04-14-[facility]25 Instructions* Patient Instructions* Mona Mancilla APRN.CNP - 12/06/2024 8:04 AM EDT - Continue taking Doxycycline twice a day for the remaining 7 days as prescribed. - Monitor the redness around the wound. If the redness completely disappears before your next appointment, you may cancel the follow-up visit. - Next follow-up appointment is scheduled for Friday to assess the wound and determine if additional antibiotics are needed. Take your blood pressure medicine prior to seeing me on Friday documented in this encounterWexner [facility] Center04-10-2025 Instructions* Patient Instructions* Mona Mancilla APRN.CNP - 12/02/2024 9:45 AM EDT We discussed the redness and tenderness in your left leg: - You likely have a skin infection. I am prescribing doxycycline (antibiotic) because you are allergic to penicillins, cephalosporins, and Bactrim. This prescription has been sent to your preferred pharmacy at [facility]. Please take it as directed. - I marked the edges of the redness on your leg with a skin marker. Monitor the area closely over the weekend. If the redness spreads beyond the marked area, you notice red streaks going up your leg,develop a fever, chills, or if the area starts oozing, please go to the emergency room immediately. - Continue using warm compresses on the area as you have been doing. - Avoid using triple antibiotic ointments or bacitracin, as you mentioned these have caused issues for you in the past. Follow-up: - Please return to the office on Friday so we can recheck your leg and ensure the infection is improving. If you have any concerns or notice worsening symptoms before your follow-up, please seek medical attention promptly. documented in this encounterWex[facility]04-10-2025 NoteHNO ID: [id number] Author: MONA MANCILLA APRN.CNP Service: ? Author Type: Nurse Practitioner Type: Progress Notes Filed: 12/02/2024 09:55 Note Text: CC: Patient presents with: Wound Check: Sore on L lower leg x 2 weeks HPI Jenni Strickland is a 84 year old female who presents today for a sore on her leg. Is in a alcazar as [place] [facility] [place] and wanted her to go to the ER for the infection, but patient is going to see her grandson at noon for the first time in 2 years and needs to get home. The patient consented to the use of [employer] software for draft documentation of the visit consistent with [facility]?s Notice of Privacy Practices. Jenni is a 84-year-old female presenting with erythema and tenderness of the left leg. Jenni reports erythema and tenderness of the left leg following a minor injury sustained 2 weeks ago when she bumped her leg on a car door. Initially, the injury was painful but did not result in any skin breakage or bleeding. Approximately 10 days ago, she began experiencing pain in the affected area, which has progressively worsened. Yesterday, she noticed swelling in the leg, which resolved by this morning. The erythema is described as real red and the area is very touchy. She denies any drainage from the site. She has been applying warm compresses to the area for comfort. She has not used topical antibiotics due to a history of adverse reactions to triple antibiotic ointment and bacitracin in the past. She denies fever, chills, myalgias, dyspnea, drainage, or chest pain. She has a history of multiple antibiotic allergies, including severe reactions to penicillins, cephalexins, and Bactrim. She has not taken antibiotics recently, with the last course being nearly a year ago for gastrointestinal issues. 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 furosemide (LASIX) 20 mg tablet Take 1 tablet by mouth once daily. lisinopril (ZESTRIL) 20 mg tablet Take 1 tablet by mouth every afternoon. amLODIPine (NORVASC) 2.5 mg tablet Take 1 tablet by mouth once daily. naproxen (NAPROSYN) 500 mg tablet Take 1 tablet by mouth two times a day as needed (for pain/inflammation). Take with food. omeprazole (PRILOSEC) 20 mg capsule Take 1 capsule by mouth daily before breakfast. 1/2 hr before meal. estradiol (ESTRACE) 0.01 % (0.1 mg/gram) vaginal cream Use 1 g vaginally one time a week. umeclidinium (INCRUSE ELLIPTA) 62.5 mcg/actuation inhaler Inhale 1 Puff as instructed once daily. polyethylene glycol 3350 (MIRALAX ORAL) Take 17 g by mouth as needed (constipation). Lactobacillus acidophilus (FLORAJEN ACIDOPHILUS) 20 billion cell cap Take 460 mg by mouth once daily. (Patient taking differently: Take 460 mg by mouth as needed.) famotidine (PEPCID) 20 mg tablet Take 1 tablet by mouth at bedtime as needed. cyanocobalamin (VITAMIN B-12) 1,000 mcg tab Take 1 tablet by mouth once daily. fluticasone (FLONASE) 50 mcg/actuation nasal spray Use 2 Sprays in each nostril once daily. calcium carbonate ([id number])(TUMS 500 MG CHEWABLE TAB) Take 1,000 mg by mouth two times a day as needed (GERD). POTASSIUM GLUCONATE 595 MG (99 MG) TAB Take 595 mg by mouth once daily. MAGNESIUM 250 MG TAB Take 250 mg by mouth once daily. calcium carbonate/vitamin d3(CALCIUM 600 WITH VITAMIN D3 600 MG (1,500)-200 UNIT TAB) Take 1 t (more content not included)...[facility] 12-02-2024 History of Present illness Narrative* Mona Mancilla APRN.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 - 12/02/2024 9:39 AM EDT CC: Patient presents with: Wound Check: Sore on L lower leg x 2 weeks HPI Jenni Strickland is a 84 year old female who presents today for a sore on her leg. Is in a [place] [facility] [place] and wanted her to go to the ER for the infection, but patient is going to see her grandson at noon for the first time in 2 years and needs to get home. The patient consented to the use of [employer] software for draft documentation of the visit consistent with [facility] Notice of Privacy Practices. Jenni is a 84-year-old female presenting with erythema and tenderness of the left leg. Jenni reports erythema and tenderness of the left leg following a minor injury sustained 2 weeks ago when she bumped her leg on a car door. Initially, the injury was painful but did not result in anyskin breakage or bleeding. Approximately 10 days ago, she began experiencing pain in the affected area, which has progressively worsened. Yesterday, she noticed swelling in the leg, which resolved bythis morning. The erythema is described as real red and the area is very touchy. She denies anydrainage from the site. She has been applying warm compresses to the area for comfort. She has not used topical antibioticsdue to a history of adverse reactions to triple antibiotic ointment and bacitracin in the past. She denies fever, chills, myalgias, dyspnea, drainage, or chest pain. She has a history of multipleantibiotic allergies, including severe reactions to penicillins, cephalexins, and Bactrim. She has not taken antibiotics recently, with the last course being nearly a year ago for gastrointestinal issues. REVIEW OF SYSTEMS See HPI PAST MEDICAL HISTORY Diagnosis Date Atopic dermatitis 06/09/2018 COPD (chronic obstructive pulmonary disease) (HCC) 04/03/2015 Diaphragmatic hernia without mention of obstruction or gangrene Disorder of bone and cartilage, unspecified Diverticulitis of colon (without mention of hemorrhage)(562.11) Dyspnea on exertion 10/21/2017 chronic Esophagitis, unspecified Essential hypertension 11/13/2015 Milia 06/09/2018 Pigmented purpura 06/09/2018 Psoriasis Urticaria PAST SURGICAL HISTORY Procedure Laterality Date AFTER CATARACT LASER SURGERY bilateral CHEST TUBE - INSERT 1985 trauma from bull, rib fractures, on vent. 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 furosemide (LASIX) 20 mg tablet Take 1 tablet by mouth once daily. lisinopril (ZESTRIL) 20 mg tablet Take 1 tablet by mouth every afternoon. amLODIPine (NORVASC) 2.5 mg tablet Take 1 tablet by mouth once daily. naproxen (NAPROSYN) 500 mg tablet Take 1 tablet by mouth two times a day as needed (for pain/inflammation). Take with food. omeprazole (PRILOSEC) 20 mg capsule Take 1 capsule by mouth daily before breakfast. 1/2 hr before meal. estradiol (ESTRACE) 0.01 % (0.1 mg/gram) vaginal cream Use 1 g vaginally one time a week. umeclidinium (INCRUSE ELLIPTA) 62.5 mcg/actuation inhaler Inhale 1 Puff as instructed once daily. polyethylene glycol 3350 (MIRALAX ORAL) Take 17 g by mouth as needed (constipation). Lactobacillus acidophilus (FLORAJEN ACIDOPHILUS) 20 billion cell cap Take 460 mg by mouth once daily. (Patient taking differently: Take 460 mg by mouth as needed.) famotidine (PEPCID) 20 mg tablet Take 1 tablet by mouth at bedtime as needed. cyanocobalamin (VITAMIN B-12) 1,000 mcg tab Take 1 tablet by mouth once daily. fluticasone (FLONASE) 50 mcg/actuation nasal spray Use 2 Sprays in each nostril once daily. calcium carbonate ([id number])(TUMS 500 MG CHEWABLE TAB) Take 1,000 mg by mouth two times a day as needed (GERD). POTASSIUM GLUCONATE 595 MG (99 MG) TAB Take 595 mg by mouth once daily. MAGNESIUM 250 MG TAB Take 250 mg by mouth once daily. calcium carbonate/vitamin d3(CALCIUM 600 WITH VITAMIN D3 600 MG (1,500)-200 UNIT TAB) Take 1 tabletby mouth once daily. FAMILY HISTORY Problem Relation Age of Onset Colon Cancer Mother Colon Cancer Father other (colon polyps) Father Stroke Maternal Grandmother Colon Cancer Paternal Grandfather Breast Cancer Sister Cervical Cancer Sister COPD Daughter Heart Brother Coronary Artery Disease Sister fatal DC Coronary Artery Disease Brother fatal DC Diabetes Sister Stroke Sister Diabetes Son Social History Tobacco Use Smoking status: Never Smokeless tobacco: Never Vaping Use Vaping status: Never Used Substance Use Topics Alcohol use: No Drug use: No PHYSICAL EXAM BP 152/74 Pulse 76 Resp 16 SpO2 95% General Appearance: well appearing, in no acute distress, alert Skin: wound to lateral side of left lower extremity above ankle with scabbed black center and erythema surrounding with increased warmth, no drainage or red streaking. Area very tender. Extremities: no edema. Health maintenance reviewed with patient: Advance Directive Discussion due on 08/25/2024 DTaP,Tdap,Td Vaccine(1 - Tdap) due on 01/04/2025 RSV Vaccine(1 - 1-dose 75+ series) due on 01/04/2025 Shingrix Vaccine(2 of 3) due on 01/04/2025 Depression Screening due on 01/04/2025 Anxiety Screening due on 01/04/2025 Diabetes Screening due on 01/16/2027 Bone Density Screening Completed Spirometry Completed Influenza Vaccine Completed Pneumococcal Vaccine: 50+ Completed Covid-19 Vaccine Discontinued Assessment/Plan 1. Cellulitis of left lower extremity (L03.116) Onset of erythema and tenderness approximately 10 days ago following minor trauma from a car door. No fever, chills, or drainage reported. Swelling noted yesterday but resolved today. Significant allergies to penicillins, cephalosporins, and Bactrim. - Initiated doxycycline therapy; prescription sent to [facility]. - Marked the borders of erythema with a skin marker to monitor for progression. - Advised patient to seek immediate medical attention if erythema extends, red streaks develop, or if fever, chills, or purulent drainage occur. - Scheduled follow-up appointment on Friday to assess response to treatment. Prescription instructions reviewed with patient as applicable. Potential red flag symptoms discussed with the patient. Reviewed appropriate action plan to take if red flag symptoms occur. Patient agreeable to treatment plan. Mona Mancilla APRN.CNP Medical Decision Making: Problems: Moderate: New problem with uncertain prognosis Risk: Low: Low risk from testing/treatment Moderate: Drug management Medical Decision Making Level: 4 - Moderate documented in this encounterW[facility]04-[facility]-2025 Telephone encounter Note * Telephone Encounter - Tatyana Bean - 11/23/2024 1:13 PM EDT Patient is nearly out of the furosemide, but wants all her scripts moved to the [facility] in [place]. She dislikes the home delivery service. [facility]04-01-2025 Miscellaneous Notes* Telephone Encounter - Tatyana Bean - 11/23/2024 1:13 PM EDT Patient is nearly out of the furosemide, but wants all her scripts moved to the [facility] in [place]. She dislikes the home delivery service. * Telephone Encounter - Tatyana Bean - 11/23/2024 1:10 PM EDT Prescription Refill Information The patient has been identified by name and date of : Yes Caregiver verified no other encounters exist for this prescription request: Yes Caregiver confirmed with patient/requestor that no other refills are due, in the near future, with this provider at this time: Yes The last office visit in the department: 07-12-24 Does the patient have a future office visit with this provider/department: Yes Requested Prescriptions Pending Prescriptions Disp Refills furosemide (LASIX) 20 mg tablet 90 tablet 3 lisinopril (ZESTRIL) 20 mg tablet 90 tablet 3 Sig: Take 1 tablet by mouth every afternoon. amLODIPine (NORVASC) 2.5 mg tablet 90 tablet 2 Sig: Take 1 tablet by mouth once daily. Tatyana Reilly November 23, 2024 1:12 PM documented in this encounterW[facility] Center04-01-2025 Telephone encounter Note * Telephone Encounter - Tatyana Bean - 11/23/2024 1:10 PM EDT Prescription Refill Information The patient has been identified by name and date of : Yes Caregiver verified no other encounters exist for this prescription request: Yes Caregiver confirmed with patient/requestor that no other refills are due, in the near future, with this provider at this time: Yes The last office visit in the department: 07-12-24 Does the patient have a future office visit with this provider/department: Yes Requested Prescriptions Pending Prescriptions Disp Refills furosemide (LASIX) 20 mg tablet 90 tablet 3 lisinopril (ZESTRIL) 20 mg tablet 90 tablet 3 Sig: Take 1 tablet by mouth every afternoon. amLODIPine (NORVASC) 2.5 mg tablet 90 tablet 2 Sig: Take 1 tablet by mouth once daily. Tatyana Reilly November 23, 2024 1:12 PM [facility]12-09-2024 NoteHNO ID: [id number] Author: JANAY BOND RN Service: ? Author Type: Registered Nurse Type: Progress Notes Filed: 08/02/2024 16:11 Note Text: CDM Telephonic Outreach Provider Action/FYI CDM: COPD Pt had a cold, symptoms resolved Pt denies symptom changes, concerns or needs SDOH updated Contacted for: Routine Telephonic Outreach Contact made with patient: Yes Patient identified by name and date of . Discussed care with patient Are you experiencing any new or worsening symptoms you need to talk about today? No Disease Specific Do you check your blood pressure at home? Yes, Enter readings: 124-130/ 72-78 Do you have new or worsening shortness of breath with activity? No Do you have new or worsening cough? No Do you have new or worsening wheezing? No Do you need to use your rescue (Albuterol) inhaler or nebulizer more often than normal? No Based on piece goods packer, the following disposition is advised: No symptoms or symptoms present, not severe. Routed to: No Action Needed LUCY Education Provided this Outreach: No Janay Bond RN August 02, 2024 4:05 [facility]12-09-2024 History of Present illness Narrative* Janay Bond RN - 08/02/2024 3:58 PM EST CDM Telephonic Outreach Provider Action/ CDM: COPD Pt had a cold, symptoms resolved Pt denies symptom changes, concerns or needs SDOH updated Contacted for: Routine Telephonic Outreach Contact made with patient: Yes Patient identified by name and date of . Discussed care with patient Are you experiencing any new or worsening symptoms you need to talk about today? No Disease Specific Do you check your blood pressure at home? Yes, Enter readings: 124-130/ 72-78 Do you have new or worsening shortness of breath with activity? No Do you have new or worsening cough? No Do you have new or worsening wheezing? No Do you need to use your rescue (Albuterol) inhaler or nebulizer more often than normal? No Based on piece goods packer, the following disposition is advised: No symptoms or symptoms present, not severe. Routed to: No Action Needed LUCY Education Provided this Outreach: No Janay Bond RN August 02, 2024 4:05 PM [facility] NotePatient Outreach ([facility]) JENNI STRICKLAND V ([id number]) 1940 F Date Time Provider Department 08/02/24 JANAY BOND [facility] During your visit today, we recorded the following information about you: Janay Bond RN 08/02/2024 4:11 PM Signed [facility] Telephonic Outreach Provider Action/ CDM: COPD Pt had a cold, symptoms resolved Pt denies symptom changes, concerns or needs SDOH updated Contacted for: Routine Telephonic Outreach Contact made with patient: Yes Patient identified by name and date of . Discussed care with patient Are you experiencing any new or worsening symptoms you need to talk about today? No Disease Specific Do you check your blood pressure at home? Yes, Enter readings: 124-130/ 72-78 Do you have new or worsening shortness of breath with activity? No Do you have new or worsening cough? No Do you have new or worsening wheezing? No Do you need to use your rescue (Albuterol) inhaler or nebulizer more often than normal? No Based on piece goods packer, the following disposition is advised: No symptoms or symptoms present, not severe. Routed to: No Action Needed LUCY Education Provided this Outreach: No Janay Bond RN August 02, 2024 4:05 PM Allergies As of Date: 08/02/2024 Noted Allergy Reaction PENICILLINS 06/06/2005 10 - Anaphylaxis ROBITUSSIN A-C (CODEINE-GUAIFENES*06/06/2005 10 - Anaphylaxis WASPS 03/21/2014 7 - Swelling Comments: swelling at sting site ELASTIC 06/07/2005 2 - Rash GLOVES, LATEX 06/14/2006 2 - Rash Comments: blisters HCTZ (THIAZIDES) 10/09/2015 5 - Intolerance Comments: Pins and needles sensation SULFA (SULFONAMIDE ANTIBIOTICS) 06/06/2005 5 - Intolerance ZOCOR (SIMVASTATIN) 06/19/2010 17 - Myalgia Comments: muscle ache Date Reviewed: 07/12/2024 Reviewed by: Umm Vazquez MA - Fully Assessed Reason for Visit: CDM [Other] Cmt: Chronic Disease Management Routine Call Prescriptions as of 08/27/2024 - amLODIPine (NORVASC) 2.5 mg tablet Take 1 tablet by mouth once daily. - naproxen (NAPROSYN) 500 mg tablet Take 1 tablet by mouth two times a day as needed (for pain/inflammation). Take with food. - furosemide (LASIX) 20 mg tablet TAKE 1 TABLET DAILY (NEED APPOINTMENT FOR FUTURE REFILLS) - lisinopril (ZESTRIL) 20 mg tablet take 1 tablet daily - omeprazole (PRILOSEC) 20 mg capsule Take 1 capsule by mouth daily before breakfast. 1/2 hr before meal. - estradiol (ESTRACE) 0.01 % (0.1 mg/gram) vaginal cream Use 1 g vaginally one time a week. - umeclidinium (INCRUSE ELLIPTA) 62.5 mcg/actuation inhaler Inhale 1 Puff as instructed once daily. - polyethylene glycol 3350 (MIRALAX ORAL) Take 17 g by mouth as needed (constipation). - Lactobacillus acidophilus (FLORAJEN ACIDOPHILUS) 20 billion cell cap Take 460 mg by mouth once daily. - famotidine (PEPCID) 20 mg tablet Take 1 tablet by mouth at bedtime as needed. - cyanocobalamin (VITAMIN B-12) 1,000 mcg tab Take 1 tablet by mouth once daily. - fluticasone (FLONASE) 50 mcg/actuation nasal spray Use 2 Sprays in each nostril once daily. - calcium carbonate ([id number])(TUMS 500 MG CHEWABLE TAB) Take 1,000 mg by mouth two times a day as needed (GERD). - POTASSIUM GLUCONATE 595 MG (99 MG) TAB Take 595 mg by mouth once daily. - MAGNESIUM 250 MG TAB Take 250 mg by mouth once daily. - calcium carbonate/vitamin d3(CALCIUM 600 WITH VITAMIN D3 600 MG (1,500)-200 UNIT TAB) Take 1 tablet by mouth once daily. Problem List As Of Date 08/02/2024 Noted Resolved Esophagitis, unspecified [K20.90] 12/09/2018 Acute gastritis [535.0] 12/09/2018 Diverticulitis [K57.92] Disorder of bone and cartilage, unspecified [M8* 12/09/2018 DIAPHRAGMATIC HERNIA [K44.9] FAMILY HX GI MALIGNANCY [Z80.0] 08/22/2008 Urticaria [L50.9] 02/01/2010 Dyslipidemia (high LDL; low HDL) [E78.5] 02/01/2010 Closed fracture of metatarsal bone(s) [S92.309A]03/12/2011 12/09/2018 Umbilical hernia without mention of obstruction*06/29/2012 Cramp of both lower extremities [R25.2] 04/03/2015 Leg cramps [R25.2] 04/03/2015 12/09/2018 Tingling in extremities [R20.2] 04/03/2015 12/09/2018 COPD (chronic obstructive pulmonary disease) (H*04/03/2015 Essential hypertension [I10] 11/13/2015 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*12/18/2020 H/O amputation of lesser toe, right (HCC) [Z89.*2022 Encounter Status:Closed by JANAY BOND on 08/02/24[facility] Instructions* Patient Instructions* Mona Mancilla APRN.CNP - 07/12/2024 9:41 AM EST Screening schedule The following prevention plan is recommended: Influenza Vaccine(1) due on 04/25/2024 WHAT YOU CAN DO TO PREVENT FALLS Many falls can be prevented. By making some changes, you can lower your chances of falling. Four things YOU can do to prevent falls for you* and your caregiver 1. Begin a regular exercise program Exercise is one of the most important ways to lower your chances of falling. It makes you stronger and helps you feel better. Exercises that improve balance and coordination (like [place]) are the most helpful. Lack of exercise leads to weakness and increases your chances of falling. Ask your doctor or health care provider about the best type of exercise program for you. 2. Have your health care provider review your medicines Have your doctor or pharmacist review all the medicines you take, even jaqk-isl-cvytrle medicines. As you get older, the way medicines work in your body can change. Some medicines, or combinations of medicines, can make you sleepy or dizzy andcan cause you to fall. 3. Have your vision checked Have your eyes checked by an eye doctor at least once a year. You may be wearing the wrong glasses or have a condition like glaucoma or cataracts that limits your vision. Poor vision can increase your chances of falling. 4. Make your home safer About half of all falls happen at home. To make your home safer: Remove things you can trip over (like papers, books, clothes, and shoes) from stairs and places where you walk. Remove small throw rugs or use double-sided tape to keep the rugs from slipping. Keep items you use often in cabinets you can reach easily without using a step stool. Have grab bars put in next to your toilet and in the tub or shower. Use non-slip mats in the bathtub and on shower floors. Improve the lighting in your home. As you get older, you need brighter lights to see well. Hang light-weight curtains or shades to reduce glare. Have handrails and lights put in on all staircases. Wear shoes both inside and outside the house. Avoid going barefoot or wearing slippers. For more information, contact: Centers for Disease Control and Prevention www.cdc.gov/injury * This information may not apply if you have certain medical conditions. documented in this encounterW[facility]11-[facility]-2024 NoteHNO ID: [id number] Author: MONA MANCILLA APRN.CNP Service: ? Author Type: Nurse Practitioner Type: Progress Notes Filed: 07/12/2024 10:19 Note Text: Jenni Strickland is a 84 year old female here for a Medicare wellness visit. Medicare Health Risk Assessment General Health Very Good Exercise: Minutes/Day Not at this time Exercise: Days/Week Not at this time Alcohol: Daily Use Does not drink alcohol Alcohol: Drinks/Day Does not drink alcohol Alcohol: 6 or more drinks Does not drink alcohol Feel off balance denies Concerns: Teeth/Dentures Difficulty with teeth, unable to afford implants. Declines on dentures Concerns: Sexual function denies Troubled by feelings denies Frequency: Eating healthy diet All of the time ADLs requiring help Denies Safety precautions in home/vehicle Always wears seatbelt, has grab bars in the bathroom, all steps have handrails. No clutter/rugs on floor Smoke, vape, chews tobacco Denies Difficulty hearing Wears hearing aides. Difficulty seeing denies Current Providers Specialists: I have reviewed specialist-related care of the patient in the medical record. Optometry: Dr. Magaña - macular degeneration. GI: Dr. Reyes Dermatology: Dr. Faulkner Massotherapist Medical/Family history review Reviewed and updated problem list, medical/surgical/family/social history, medications, and allergies. Opioid use review Opioid Medications (last 90 days) No data to display Anxiety/Depression screening PHQ-2 Score: 0 (Lower risk for depression) NEAL-2 Sore: 0 Recommendation: no further intervention at this time Cognitive screening Mini Cog Score: 5 Cognitive screening reviewed and No further action needed (score 3-5). Functional Observation Was the patient's Timed Up AND Go test unsteady or >= 12 seconds? No Advance Care Planning Surrogate decision maker and/or advance care plan documented POA of healthcare is . No paperwork on file. Measurements BP 131/76 Pulse 80 Resp 16 Wt 65.8 kg (145 lb) BMI 26.52 kg/m? Vision Screening: Follows with optometry/ophthalmology Assessment/Plan Medicare annual wellness visit, subsequent (Z) - Counseled on healthy diet and regular exercise - Fall avoidance information provided - Personalized prevention plan provided ASSESSMENT/PLAN: 1. Medicare annual wellness visit, subsequent - ICD9: V70.0, ICD10: Z00.00 (primary diagnosis) - Counseled on healthy diet and regular exercise - Patient counseled on and acknowledged vaccine benefits/risks/side effects; VIS provided: Influenza - Follow up for annual exam in one year 2. Need for influenza vaccination - ICD9: V04.81, ICD10: Z23 - INFLUENZA VACCINE, PRSV FREE, AGE 65+ YR, HIGH DOSE, TRIVALENT (FLUZONE HIGH-DOSE) Prescription instructions reviewed with patient as applicable. Potential red flag symptoms discussed with the patient. Reviewed appropriate action plan to take if red flag symptoms occur. Patient agreeable to treatment plan. [facility]ancilla APRN.[facility] History of Present illness Narrative* Mona Mancilla APRN.REE - 07/12/2024 9:32 AM EST Images from the original note were not included. Jenni Strickland is a 84 year old female here for a Medicare wellness visit. Medicare Health Risk Assessment General Health Very Good Exercise: Minutes/Day Not at this time Exercise: Days/Week Not at this time Alcohol: Daily Use Does not drink alcohol Alcohol: Drinks/Day Does not drink alcohol Alcohol: 6 or more drinks Does not drink alcohol Feel off balance denies Concerns: Teeth/Dentures Difficulty with teeth, unable to afford implants. Declines on dentures Concerns: Sexual function denies Troubled by feelings denies Frequency: Eating healthy diet All of the time ADLs requiring help Denies Safety precautions in home/vehicle Always wears seatbelt, has grab bars in the bathroom, all steps have handrails. No clutter/rugs on floor Smoke, vape, chews tobacco Denies Difficulty hearing Wears hearing aides. Difficulty seeing denies Current Providers Specialists: I have reviewed specialist-related care of the patient in the medical record. Optometry: Dr. Magaña - macular degeneration. GI: Dr. Reyes Dermatology: Dr. Faulkner Massotherapist Medical/Family history review Reviewed and updated problem list, medical/surgical/family/social history, medications, and allergies. Opioid use review Opioid Medications (last 90 days) No data to display Anxiety/Depression screening PHQ-2 Score: 0 (Lower risk for depression) NEAL-2 Sore: 0 Recommendation: no further intervention at this time Cognitive screening Mini Cog Score: 5 Cognitive screening reviewed and No further action needed (score 3-5). Functional Observation Was the patient's Timed Up & Go test unsteady or >= 12 seconds? No Advance Care Planning Surrogate decision maker and/or advance care plan documented POA of healthcare is . No paperwork on file. Measurements BP 131/76 Pulse 80 Resp 16 Wt 65.8 kg (145 lb) BMI 26.52 kg/m Vision Screening: Follows with optometry/ophthalmology Assessment/Plan Medicare annual wellness visit, subsequent (Z00.00) - Counseled on healthy diet and regular exercise - Fall avoidance information provided - Personalized prevention plan provided ASSESSMENT/PLAN: 1. Medicare annual wellness visit, subsequent - ICD9: V70.0, ICD10: Z00.00 (primary diagnosis) - Counseled on healthy diet and regular exercise - Patient counseled on and acknowledged vaccine benefits/risks/side effects; VIS provided: Influenza - Follow up for annual exam in one year 2. Need for influenza vaccination - ICD9: V04.81, ICD10: Z23 - INFLUENZA VACCINE, PRSV FREE, AGE 65+ YR, HIGH DOSE, TRIVALENT (FLUZONE HIGH-DOSE) Prescription instructions reviewed with patient as applicable. Potential red flag symptoms discussed with the patient. Reviewed appropriate action plan to take if red flag symptoms occur. Patient agreeable to treatment plan. Mona Mancilla APRN.CNP documented in this encounterW[facility] Center11-07-2024 NoteHNO ID: [id number] Author: JANAY BOND RN Service: ? Author Type: Registered Nurse Type: Progress Notes Filed: 07/01/2024 16:58 Note Text: CDM Telephonic Outreach Provider Action/FYI CDM: COPD Pt completed appt 06/29/[address] Eric Menard Pt denies symptom changes, concerns or needs Pt is caring for her with Cancer, emotional support given [facility] updated Pt noted she has mild Sob with carrying items/ exertion Contacted for: Routine Telephonic Outreach Contact made with patient: Yes Patient identified by name and date of . Discussed care with patient Are you experiencing any new or worsening symptoms you need to talk about today? No Disease Specific Do you check your blood pressure at home? No Do you have new or worsening shortness of breath with activity? No Do you have new or worsening cough? No Do you have new or worsening wheezing? No Do you need to use your rescue (Albuterol) inhaler or nebulizer more often than normal? No Based on piece goods packer, the following disposition is advised: No symptoms or symptoms present, not severe. Routed to: No Action Needed LUCY Education Provided this Outreach: No Janay Bond RN July 01, 2024 4:51 [facility]11-07-2024 History of Present illness Narrative* Janay Bond RN - 07/01/2024 4:43 PM EST CDM Telephonic Outreach Provider Action/FYI CDM: COPD Pt completed appt 06/29/[address] Eric Menard Pt denies symptom changes, concerns or needs Pt is caring for her with Cancer, emotional support given [facility] updated Pt noted she has mild Sob with carrying items/ exertion Contacted for: Routine Telephonic Outreach Contact made with patient: Yes Patient identified by name and date of . Discussed care with patient Are you experiencing any new or worsening symptoms you need to talk about today? No Disease Specific Do you check your blood pressure at home? No Do you have new or worsening shortness of breath with activity? No Do you have new or worsening cough? No Do you have new or worsening wheezing? No Do you need to use your rescue (Albuterol) inhaler or nebulizer more often than normal? No Based on piece goods packer, the following disposition is advised: No symptoms or symptoms present, not severe. Routed to: No Action Needed LUCY Education Provided this Outreach: No Janay Bond RN July 01, 2024 4:51 PM * Janay Bond RN - 06/30/2024 10:26 AM EST CDM Telephonic Outreach Provider Action/FYI CDM: COPD, 1st Attempt Lvm, Instructed to contact PCP/Provider for symptom changes, concerns or needs. Contacted for: Routine Telephonic Outreach Contact made with patient: No, left message. Janay Bond RN June 30, 2024 10:27 AM documented in this encounterWexner [facility] Center11-06-2024 NoteHNO ID: [id number] Author: JANAY BOND RN Service: ? Author Type: Registered Nurse Type: Progress Notes Filed: 07/01/2024 16:58 Note Text: CDM Telephonic Outreach Provider Action/FYI CDM: COPD, 1st Attempt Lvm, Instructed to contact PCP/Provider for symptom changes, concerns or needs. Contacted for: Routine Telephonic Outreach Contact made with patient: No, left message. Janay Bond RN June 30, 2024 10:27 [facility]11-06-2024 NotePatient Outreach ([facility]) JENNI STRICKLAND V ([id number]) 1940 F Date Time Provider Department 06/30/24 JANAY BOND [facility] During your visit today, we recorded the following information about you: Janay Bond RN 07/01/2024 4:58 PM Signed CDM Telephonic Outreach Provider Action/FYI CDM: COPD, 1st Attempt Lvm, Instructed to contact PCP/Provider for symptom changes, concerns or needs. Contacted for: Routine Telephonic Outreach Contact made with patient: No, left message. Janay Bond RN June 30, 2024 10:27 AM Janay Bond RN 07/01/2024 4:58 PM Signed CDM Telephonic Outreach Provider Action/FYI CDM: COPD Pt completed appt 06/29/[address] Eric Menard Pt denies symptom changes, concerns or needs Pt is caring for her with Cancer, emotional support given [facility] updated Pt noted she has mild Sob with carrying items/ exertion Contacted for: Routine Telephonic Outreach Contact made with patient: Yes Patient identified by name and date of . Discussed care with patient Are you experiencing any new or worsening symptoms you need to talk about today? No Disease Specific Do you check your blood pressure at home? No Do you have new or worsening shortness of breath with activity? No Do you have new or worsening cough? No Do you have new or worsening wheezing? No Do you need to use your rescue (Albuterol) inhaler or nebulizer more often than normal? No Based on piece goods packer, the following disposition is advised: No symptoms or symptoms present, not severe. Routed to: No Action Needed LUCY Education Provided this Outreach: No Janay Bond RN July 01, 2024 4:51 PM Allergies As of Date: 06/30/2024 Noted Allergy Reaction PENICILLINS 06/06/2005 10 - Anaphylaxis ROBITUSSIN A-C (CODEINE-GUAIFENES*06/06/2005 10 - Anaphylaxis WASPS 03/21/2014 7 - Swelling Comments: swelling at sting site ELASTIC 06/07/2005 2 - Rash GLOVES, LATEX 06/14/2006 2 - Rash Comments: blisters HCTZ (THIAZIDES) 10/09/2015 5 - Intolerance Comments: Pins and needles sensation SULFA (SULFONAMIDE ANTIBIOTICS) 06/06/2005 5 - Intolerance ZOCOR (SIMVASTATIN) 06/19/2010 17 - Myalgia Comments: muscle ache Date Reviewed: 04/09/2024 Reviewed by: Alena Rangel MA - Fully Assessed Reason for Visit: CDM [Other] Cmt: Chronic Disease Management Routine Call Prescriptions as of 07/01/2024 - naproxen (NAPROSYN) 500 mg tablet Take 1 tablet by mouth two times a day as needed (for pain/inflammation). Take with food. - furosemide (LASIX) 20 mg tablet TAKE 1 TABLET DAILY (NEED APPOINTMENT FOR FUTURE REFILLS) - lisinopril (ZESTRIL) 20 mg tablet take 1 tablet daily - amLODIPine (NORVASC) 2.5 mg tablet Take 1 tablet by mouth once daily. - omeprazole (PRILOSEC) 20 mg capsule Take 1 capsule by mouth daily before breakfast. 1/2 hr before meal. - estradiol (ESTRACE) 0.01 % (0.1 mg/gram) vaginal cream Use 1 g vaginally one time a week. - umeclidinium (INCRUSE ELLIPTA) 62.5 mcg/actuation inhaler Inhale 1 Puff as instructed once daily. - polyethylene glycol 3350 (MIRALAX ORAL) Take 17 g by mouth as needed (constipation). - Lactobacillus acidophilus (FLORAJEN ACIDOPHILUS) 20 billion cell cap Take 460 mg by mouth once daily. - famotidine (PEPCID) 20 mg tablet Take 1 tablet by mouth at bedtime as needed. - cyanocobalamin (VITAMIN B-12) 1,000 mcg tab Take 1 tablet by mouth once daily. - fluticasone (FLONASE) 50 mcg/actuation nasal spray Use 2 Sprays in each nostril once daily. - calcium carbonate ([id number])(TUMS 500 MG CHEWABLE TAB) Take 1,000 mg by mouth two times a day as needed (GERD). - POTASSIUM GLUCONATE 595 MG (99 MG) TAB Take 595 mg by mouth once daily. - MAGNESIUM 250 MG TAB Take 250 mg by mouth once daily. - calcium carbonate/vitamin d3(CALCIUM 600 WITH VITAMIN D3 600 MG (1,500)-200 UNIT TAB) Take 1 tablet by mouth once daily. Problem List As Of Date 06/30/2024 Noted Resolved Esophagitis, unspecified [K20.90] 12/09/2018 Acute gastritis [535.0] 12/09/2018 Diverticulitis [K57.92] Disorder of bone and cartilage, unspecified [M8* 12/09/2018 DIAPHRAGMATIC HERNIA [K44.9] FAMILY HX GI MALIGNANCY [Z80.0] 08/22/2008 Urticaria [L50.9] 02/01/2010 Dyslipidemia (high LDL; low HDL) [E78.5] 02/01/2010 Closed fracture of metatarsal bone(s) [S92.309A]03/12/2011 12/09/2018 Umbilical hernia without mention of obstruction*06/29/2012 Cramp of both lower extremities [R25.2] 04/03/2015 Leg cramps [R25.2] 04/03/2015 12/09/2018 Tingling in extremities [R20.2] 04/03/2015 12/09/2018 COPD (chronic obstructive pulmonary disease) (H*04/03/2015 Essential hypertension [I10] 11/13/2015 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*12/18/2020 H/O amputation of lesser toe, right (HCC) [Z89.*2022 Encounter Status:Closed by STAFFOR (more content not included)...[facility]10-10-2024 NoteHNO ID: [id number] Author: JANAY BOND RN Service: ? Author Type: Registered Nurse Type: Progress Notes Filed: 06/03/2024 10:39 Note Text: CDM Telephonic Outreach Provider Action/FYI CDM: COPD Pt noted Pollen causes cough and sneezing due to blanco, using OTC allergy medicine Denies fever or chills Denies CP, Sob, wheezing. Pt noted stressed with her husbands health issues, offered BHSW, Pt declined at this time. Emotional support given. Contacted for: Routine Telephonic Outreach Contact made with patient: Yes Patient identified by name and date of . Discussed care with patient Are you experiencing any new or worsening symptoms you need to talk about today? Yes Based on piece goods packer, the following disposition is advised: No symptoms or symptoms present, not severe. Routed to: No Action Needed LUCY Education Provided this Outreach: No Janay Bond RN June 03, 2024 10:27 [facility]10-10-2024 History of Present illness Narrative* Janay Bond RN - 06/03/2024 10:25 AM EDT CDM Telephonic Outreach Provider Action/FYI CDM: COPD Pt noted Pollen causes cough and sneezing due to blanco, using OTC allergy medicine Denies fever or chills Denies CP, Sob, wheezing. Pt noted stressed with her husbands health issues, offered BHSW, Pt declined at this time. Emotional support given. Contacted for: Routine Telephonic Outreach Contact made with patient: Yes Patient identified by name and date of . Discussed care with patient Are you experiencing any new or worsening symptoms you need to talk about today? Yes Based on piece goods packer, the following disposition is advised: No symptoms or symptoms present, not severe. Routed to: No Action Needed LUCY Education Provided this Outreach: No Janay Bond RN June 03, 2024 10:27 AM * Janay Bond RN - 06/02/2024 1:54 PM EDT CDM Telephonic Outreach Provider Action/FYI CDM: COPD Spk with spouse he noted Jenni was not home, he shared he has Appt with new Oncologist, and was elated. Spouse anticipates she will be home tomorrow for Follow-up , Contacted for: Routine Telephonic Outreach Contact made with patient: Yes Patient identified by name and date of . Discussed care with spouse Janay Bond RN June 02, 2024 1:56 PM documented in this encounterW[facility]10-09-2024 NoteHNO ID: [id number] Author: JANAY BOND RN Service: ? Author Type: Registered Nurse Type: Progress Notes Filed: 06/03/2024 10:39 Note Text: CDM Telephonic Outreach Provider Action/FYI CDM: COPD Spk with spouse he noted Jenni was not home, he shared he has Appt with new Oncologist, and was elated. Spouse anticipates she will be home tomorrow for Follow-up , Contacted for: Routine Telephonic Outreach Contact made with patient: Yes Patient identified by name and date of . Discussed care with spouse Janay Bond RN June 02, 2024 1:56 [facility]10-09-[facility]24 NotePatient Outreach ([facility]) JENNI STRICKLAND V ([id number]) 1940 F Date Time Provider Department 06/02/24 JANAY BONDG During your visit today, we recorded the following information about you: Janay Bond RN 06/03/2024 10:39 AM Signed CDM Telephonic Outreach Provider Action/FYI CDM: COPD Spk with spouse he noted Jenni was not home, he shared he has Appt with new Oncologist, and was elated. Spouse anticipates she will be home tomorrow for Follow-up , Contacted for: Routine Telephonic Outreach Contact made with patient: Yes Patient identified by name and date of . Discussed care with spouse Janay Bond RN June 02, 2024 1:56 PM Janay Bond RN 06/03/2024 10:39 AM Signed CDM Telephonic Outreach Provider Action/FYI CDM: COPD Pt noted Pollen causes cough and sneezing due to blanco, using OTC allergy medicine Denies fever or chills Denies CP, Sob, wheezing. Pt noted stressed with her husbands health issues, offered BHSW, Pt declined at this time. Emotional support given. Contacted for: Routine Telephonic Outreach Contact made with patient: Yes Patient identified by name and date of . Discussed care with patient Are you experiencing any new or worsening symptoms you need to talk about today? Yes Based on piece goods packer, the following disposition is advised: No symptoms or symptoms present, not severe. Routed to: No Action Needed LUCY Education Provided this Outreach: No Janay Bond RN June 03, 2024 10:27 AM Allergies As of Date: 06/02/2024 Noted Allergy Reaction PENICILLINS 06/06/2005 10 - Anaphylaxis ROBITUSSIN A-C (CODEINE-GUAIFENES*06/06/2005 10 - Anaphylaxis WASPS 03/21/2014 7 - Swelling Comments: swelling at sting site ELASTIC 06/07/2005 2 - Rash GLOVES, LATEX 06/14/2006 2 - Rash Comments: blisters HCTZ (THIAZIDES) 10/09/2015 5 - Intolerance Comments: Pins and needles sensation SULFA (SULFONAMIDE ANTIBIOTICS) 06/06/2005 5 - Intolerance ZOCOR (SIMVASTATIN) 06/19/2010 17 - Myalgia Comments: muscle ache Date Reviewed: 04/09/2024 Reviewed by: Alena Rangel MA - Fully Assessed Reason for Visit: CDM [Other] Cmt: Chronic Disease Management Routine Call Prescriptions as of 06/03/2024 - naproxen (NAPROSYN) 500 mg tablet Take 1 tablet by mouth two times a day as needed (for pain/inflammation). Take with food. - furosemide (LASIX) 20 mg tablet TAKE 1 TABLET DAILY (NEED APPOINTMENT FOR FUTURE REFILLS) - lisinopril (ZESTRIL) 20 mg tablet take 1 tablet daily - amLODIPine (NORVASC) 2.5 mg tablet Take 1 tablet by mouth once daily. - omeprazole (PRILOSEC) 20 mg capsule Take 1 capsule by mouth daily before breakfast. 1/2 hr before meal. - estradiol (ESTRACE) 0.01 % (0.1 mg/gram) vaginal cream Use 1 g vaginally one time a week. - umeclidinium (INCRUSE ELLIPTA) 62.5 mcg/actuation inhaler Inhale 1 Puff as instructed once daily. - polyethylene glycol 3350 (MIRALAX ORAL) Take 17 g by mouth as needed (constipation). - Lactobacillus acidophilus (FLORAJEN ACIDOPHILUS) 20 billion cell cap Take 460 mg by mouth once daily. - famotidine (PEPCID) 20 mg tablet Take 1 tablet by mouth at bedtime as needed. - cyanocobalamin (VITAMIN B-12) 1,000 mcg tab Take 1 tablet by mouth once daily. - fluticasone (FLONASE) 50 mcg/actuation nasal spray Use 2 Sprays in each nostril once daily. - calcium carbonate (hyw9925)(TUMS 500 MG CHEWABLE TAB) Take 1,000 mg by mouth two times a day as needed (GERD). - POTASSIUM GLUCONATE 595 MG (99 MG) TAB Take 595 mg by mouth once daily. - MAGNESIUM 250 MG TAB Take 250 mg by mouth once daily. - calcium carbonate/vitamin d3(CALCIUM 600 WITH VITAMIN D3 600 MG (1,500)-200 UNIT TAB) Take 1 tablet by mouth once daily. Problem List As Of Date 06/02/2024 Noted Resolved Esophagitis, unspecified [K20.90] 12/09/2018 Acute gastritis [535.0] 12/09/2018 Diverticulitis [K57.92] Disorder of bone and cartilage, unspecified [M8* 12/09/2018 DIAPHRAGMATIC HERNIA [K44.9] FAMILY HX GI MALIGNANCY [Z80.0] 08/22/2008 Urticaria [L50.9] 02/01/2010 Dyslipidemia (high LDL; low HDL) [E78.5] 02/01/2010 Closed fracture of metatarsal bone(s) [S92.309A]03/12/2011 12/09/2018 Umbilical hernia without mention of obstruction*06/29/2012 Cramp of both lower extremities [R25.2] 04/03/2015 Leg cramps [R25.2] 04/03/2015 12/09/2018 Tingling in extremities [R20.2] 04/03/2015 12/09/2018 COPD (chronic obstructive pulmonary disease) (H*04/03/2015 Essential hypertension [I10] 11/13/2015 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 Discussed care with patient Are you experiencing any new or worsening symptoms you need to talk about today? No Disease Specific Do you check your blood pressure at home? No Do you have new or worsening shortness of breath with activity? No Do you have new or worsening cough? No Do you have new or worsening wheezing? No Do you need to use your rescue (Albuterol) inhaler or nebulizer more often than normal? No Based on piece goods packer, the following disposition is advised: No symptoms or symptoms present, not severe. Routed to: No Action Needed LUCY Education Provided this Outreach: No Pt reports she is doing well and she is not having any new or worsening cdm concerns at this time. She reports she is concerned about her his ca has stopped responding to medication and theoffice is trying to do a prior authorization for a new medication and she is trying to stay busy soshe doesn't worry about it. She will contact the office with any needs. Laverne Dubose RN May 06, 2024 2:37 PM documented in this encounterWexner Medical Center08-24-2024 History of Present illness Narrative* Myrtle Baker RN - 04/17/2024 2:57 PM EDT ED Follow-Up Note Provider Action / FYI: ROUTING TO NAVIGATION TEAM Please contact patient to schedule PCP follow up visit to [facility] ED visit. Reason : Head concussion Navigator: Please note, include follow up to infected finger at site of nail in the same visit. Thank you. Call completed by: RN Patient seen in ED: Out of Network ED Contact made with Patient: Yes The patient was identified by Name and Date of . Discussed Care with: patient Patient was seen in the Emergency Department (ED) Location: [facility] ED Date: 04/16/24 Reason for ED Visit: Blunt trauma to head. Fell and hit head on rock. ED Intervention: CT scan of head. Per patient it was a concussion. New Medications: NONE Medication Changes: NONE Does patient understand medication changes: N/A Can patient afford medication changes: N/A Patient educated on worsening symptoms and when and where to seek additional care: Yes Patient Education Provided including treatment plan and new orders. Patient provided with appropriate counseling: Yes Based on piece goods packer, the following disposition is advised: No symptoms or symptoms present, not severe. Routed to: No Action Needed LUCY Education Provided this Outreach: No Spoke to patient at length about being sure to care for herself, in a timely fashion. She tends to put things off because of the care she is providing to her who has cancer. Denies other needs, questions, concerns at this time. Myrtle Baker RN April 17, 2024 3:01 PM * Myrtle Baker RN - 04/17/2024 2:15 PM EDT CDM ESCALATION Provider Action / FYI: Message received via: Virtualist Escalation Follow-Up Patient escalated to Virtualist on: 04/16/24 Reason for escalation: fall, hit head on a rock. Virtualist intervention: Directed Contact made with patient: Yes Patient identified by name and date of . Discussed care with patient Based on piece goods packer the following disposition is advised: CALL 911 / GO TO THE EMERGENCY ROOM. The patient, or person on the call, states understanding and will proceed to the Emergency Room viaTransported by family. Myrtle Baker RN April 17, 2024 2:20 PM documented in this encounterWexner [facility] Center08-24-2024 History of Present illness Narrative* Myrtle Baker RN - 04/17/2024 9:37 AM EDT CDM ESCALATION Provider Action / FYI: Message received via: documented in this encounterWexner Medical Center08-23-2024 Telephone encounter Note * Telephone Encounter - Da Castro MD - 04/16/2024 4:52 PM EDT Noted, that was the right thing to be done RegardsDa MD [facility]08-23-2024 Miscellaneous Notes* Telephone Encounter - Da Castro MD - 04/16/2024 4:52 PM EDT Noted, that was the right thing to be done Da Valladares MD * Telephone Encounter - Jasmina Gamboa LPN - 04/16/2024 3:36 PM EDT Patient was told by respiratory care assistant who calls her weekly that she needed to have herself checked out. Patient said she had fall outside and not sure if she blacked out or not. She is having headaches and dizziness if she goes to get up to quickly. Patient said she was told by she had virtual visit with to go to ER for evaluation. Patient said she really did not want to do that, would take to long. Advised patient that she may need to have her head scanned to make sure there is no problems. Patient finally agreed to go to ER for evaluation. documented in this encounterWexner Medical Center08-23-2024 Telephone encounter Note * Telephone Encounter - Jasmina Gamboa LPN - 04/16/2024 3:36 PM EDT Patient was told by respiratory care assistant who calls her weekly that she needed to have herself checked out. Patient said she had fall outside and not sure if she blacked out or not. She is having headaches and dizziness if she goes to get up to quickly. Patient said she was told by she had virtual visit with to go to ER for evaluation. Patient said she really did not want to do that, would take to long. Advised patient that she may need to have her head scanned to make sure there is no problems. Patient finally agreed to go to ER for evaluation. [facility] History of Present illness Narrative* Obdulia Alas MD - 04/16/2024 3:10 PM EDT Virtualist Distance Health Note (CDM/TCM//CC HC/H@HCC escalations) I have communicated my name and active licensure. The patient's identity and physical location wereverified at the time of this visit. Either the patient or their legal sales representative livestock has been informed of the risks and benefits of -- and alternatives to -- treatment through a remote evaluation andconsents to proceed with the evaluation remotely. Triage source: Chronic Disease Management Contacted by: Audio Only Visit History of present illness: 84 yo F CC fall HPI occurred 1 week ago when outside when working in the garden in the evening, hit a rock, hit the back of her head, unsure if knocked out, laid there, then had trouble getting up hit right side of head behind the right ear had a headache when she got up, was wozzy headaches 6-7 weeks ago if get up too fast is dizzy since the fall no other compalints including no numbness or weakness or new motor or sensory deficits last Friday, fell again, and hit her right hand had a second fall because of unsteadiness, had right wrist xrays done on 04/09 NAD had 5 surgeries bon her right hand, hand her hand in the cornpicker and did well during call patient alert [facility] answering questions appropriately Past medical history, past surgical history, family history and social history reviewed and updated. Past Medical History PAST MEDICAL HISTORY 06/09/2018: Atopic dermatitis 04/03/2015: COPD (chronic obstructive pulmonary disease) (HCC) No date: Diaphragmatic hernia without mention of obstruction or gangrene No date: Disorder of bone and cartilage, unspecified No date: Diverticulitis of colon (without mention of hemorrhage)(562. 11) 10/21/2017: Dyspnea on exertion Comment: chronic No date: Esophagitis, unspecified 11/13/2015: Essential hypertension 06/09/2018: Milia 06/09/2018: Pigmented purpura (HCC) No date: Psoriasis No date: Urticaria REVIEW OF SYSTEMS: Review of Systems SEE HPI VITAL SIGNS: (if available) There were no vitals taken for this visit. NA Physical Exam (if video visit was performed) Physical Exam NA Assessment/Plan: blunt trauma to head, headaches, dizziness, right wrist pain, s/p fall, Disposition: Patient instructed to go to the ED A total of 13 minutes was spent providing medical care using telemedicine. Signed in as Primary Virtualist, Secondary Virtualist, or [facility] Telehealth provider: Primary plan patient needs CT scan of head (and maybe neck but no neck pain) since has had headaches and dizziness after a fall recommend ED patient did not want to go to ED says she will call her doctor to get the CT scan documented in this encounterWexner Medical Center08-23-2024 History of Present illness Narrative* Janay Bond RN - 04/16/2024 2:42 PM EDT [facility] Telephonic Outreach Provider Action/FYI Routed to and paged Dr. Obdulia Alas Fell a week ago, hit her head 2nd fall had some unsteadiness, right wrist seen by Urgent care, x-rays taken Pt states if she moves too quickly has dizziness, intermittent Bal Pt is in agreement to speak to a Virtual provider Is concerned insurance costs due to husbands cancer treatments Contacted for: Routine Telephonic Outreach Contact made with patient: Yes Patient identified by name and date of . Discussed care with patient Are you experiencing any new or worsening symptoms you need to talk about today? Yes Based on piece goods packer, the following disposition is advised: Sent to virtualist. Janay Bond RN April 16, 2024 2:55 PM * Janay Bond RN - 04/15/2024 4:24 PM EDT [facility] Telephonic Outreach Provider Roxy/FELICIA Contacted for: Routine Telephonic Outreach Contact made with patient: No, left message. Janay Bond RN April 15, 2024 4:24 PM documented in this encounterWexner Medical Center08-16-2024 History of Present illness Narrative* Lila Gray APRN.REE - 04/09/2024 5:04 PM EDT This note was created using NoteWriter. Subjective Jenni Strickland is a 84 year old female. 84 year old female with PMH HTN, COPD, dyslipidemia presents for complaints of fall. Acute onset today 1000 Right wrist and right hand Endorses she tripped over concrete debris, And ultimately fell with right hand and right wrist +pain ulna side +painful and reduced ROM Denies head injury. Denies LOC. Denies neck or back pain Denies skin rash or lesions. Denies blood thinners The history is provided by the patient. No english language learner tutor was used. Wrist/forearm Injury The incident occurred 12 to 24 hours ago. The incident occurred in the street. The injury mechanismwas a fall. Pain location: right wrist/right hand. The quality of the pain is described as aching. Radiates to: right wrist and right hand. The pain is at a severity of 6/10. The pain is moderate. The pain has been Constant since the incident. Pertinent negatives include no chest pain, muscle weakness, numbness or tingling. Nothing aggravates the symptoms. She has tried nothing for the symptoms. The treatment provided moderate relief. PAST MEDICAL HISTORY 06/09/2018: Atopic dermatitis 04/03/2015: COPD (chronic obstructive pulmonary disease) ([facility]) No date: Diaphragmatic hernia without mention of obstruction or gangrene No date: Disorder of bone and cartilage, unspecified No date: Diverticulitis of colon (without mention of hemorrhage)(562. 11) 10/21/2017: Dyspnea on exertion Comment: chronic No date: Esophagitis, unspecified 11/13/2015: Essential hypertension 06/09/2018: Milia 06/09/2018: Pigmented purpura ([facility]) No date: Psoriasis No date: Urticaria PAST SURGICAL HISTORY No date: AFTER CATARACT LASER SURGERY Comment: bilateral 1984: CHEST TUBE - INSERT Comment: trauma from bull, rib fractures, on vent. 12/06/08: COLONOSCOPY FLX DX W/COLLJ SPEC WHEN PFRMD 11/17/14: COLONOSCOPY FLX DX W/COLLJ SPEC WHEN PFRMD Comment: Colonoscopy 05/18/01: COLSC FLX W/RMVL OF TUMOR POLYP LESION SNARE TQ 05/18/01: EGD FLEX REMOVAL LESION(S) BY HOT BIOPSY FORCEPS 07/05/05: ESOPHAGOGASTRODUODENOSCOPY TRANSORAL DIAGNOSTIC Comment: EGD (H-pyloir negative) 1988: PAST SURGICAL HISTORY OF Comment: HAND RECONSTRUCTION, artificial joint 10/03: PAST SURGICAL HISTORY OF Comment: left arm fracture from fall, pin, plates and screw placed 1948: PAST SURGICAL HISTORY OF Comment: ruptured appendix No date: PAST SURGICAL HISTORY OF Comment: 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 Take with food. furosemide (LASIX) 20 mg tablet TAKE 1 TABLET DAILY (NEED APPOINTMENT FOR FUTURE REFILLS) lisinopril (ZESTRIL) 20 mg tablet take 1 tablet daily amLODIPine (NORVASC) 2.5 mg tablet Take 1 tablet by mouth once daily. omeprazole (PRILOSEC) 20 mg capsule Take 1 capsule by mouth daily before breakfast. 1/2 hr before meal. estradiol (ESTRACE) 0.01 % (0.1 mg/gram) vaginal cream Use 1 g vaginally one time a week. umeclidinium (INCRUSE ELLIPTA) 62.5 mcg/actuation inhaler Inhale 1 Puff as instructed once daily. polyethylene glycol 3350 (MIRALAX ORAL) Take 17 g by mouth as needed (constipation). Lactobacillus acidophilus (FLORAJEN ACIDOPHILUS) 20 billion cell cap Take 460 mg by mouth once daily. (Patient taking differently: Take 460 mg by mouth as needed.) famotidine (PEPCID) 20 mg tablet Take 1 tablet by mouth at bedtime as needed. cyanocobalamin (VITAMIN B-12) 1,000 mcg tab Take 1 tablet by mouth once daily. fluticasone (FLONASE) 50 mcg/actuation nasal spray Use 2 Sprays in each nostril once daily. calcium carbonate (dal9985)(TUMS 500 MG CHEWABLE TAB) Take 1,000 mg by mouth two times a day as needed (GERD). POTASSIUM GLUCONATE 595 MG (99 MG) TAB Take 595 mg by mouth once daily. MAGNESIUM 250 MG TAB Take 250 mg by mouth once daily. calcium carbonate/vitamin d3(CALCIUM 600 WITH VITAMIN D3 600 MG (1,500)-200 UNIT TAB) Take 1 tabletby mouth once daily. FAMILY HISTORY Problem Relation Age of Onset Colon Cancer Mother Colon Cancer Father other (colon polyps) Father Stroke Maternal Grandmother Colon Cancer Paternal Grandfather Breast Cancer Sister Cervical Cancer Sister COPD Daughter Heart Brother Coronary Artery Disease Sister fatal DC Coronary Artery Disease Brother fatal DC Diabetes Sister Stroke Sister Diabetes Son Social History Tobacco Use Smoking status: Never Smokeless tobacco: Never Vaping Use Vaping Use: Never used Substance Use Topics Alcohol use: No Drug use: No Review of Systems Constitutional: Negative for appetite change, chills, diaphoresis and fatigue. Respiratory: Negative for apnea, choking and chest tightness. Cardiovascular: Negative for chest pain. Gastrointestinal: Negative for abdominal pain, diarrhea, nausea and vomiting. Musculoskeletal: Negative for back pain, gait problem and joint swelling. Skin: Negative for color change, pallor and rash. Allergic/Immunologic: Negative for environmental allergies, food allergies and immunocompromised state. Neurological: Negative for dizziness, tingling, facial asymmetry, numbness and headaches. Hematological: Negative for adenopathy. Does not bruise/bleed easily. Psychiatric/Behavioral: Negative for agitation and behavioral problems. Objective BP 174/99 Pulse 105 Temp 36.6 C (97.9 F) Resp 18 Wt 66.7 kg (147 lb) SpO2 95% BMI 26.89kg/m Physical Exam Vitals and nursing note reviewed. Constitutional: General: She is not in acute distress. Appearance: Normal appearance. She is normal weight. She is not ill-appearing, toxic-appearing or diaphoretic. HENT: Head: Normocephalic and atraumatic. Right Ear: Ear canal and external ear normal. Left Ear: Ear canal and external ear normal. Nose: Nose normal. No congestion or rhinorrhea. Mouth/Throat: Mouth: Mucous membranes are moist. Pharynx: No oropharyngeal exudate or posterior oropharyngeal erythema. Eyes: General: Right eye: No discharge. Left eye: No discharge. Extraocular Movements: Extraocular movements intact. Conjunctiva/sclera: Conjunctivae normal. Pupils: Pupils are equal, round, and reactive to light. Cardiovascular: Rate and Rhythm: Normal rate and regular rhythm. Pulses: Normal pulses. Heart sounds: Normal heart sounds. No murmur heard. No friction rub. Pulmonary: Effort: Pulmonary effort is normal. No respiratory distress. Breath sounds: Normal breath sounds. No stridor. No wheezing, rhonchi or rales. Chest: Chest wall: No tenderness. Abdominal: General: Abdomen is flat. There is no distension. Palpations: Abdomen is soft. There is no mass. Tenderness: There is no abdominal tenderness. There is no right CVA tenderness, left CVA tenderness, guarding or rebound. Hernia: No hernia is present. Musculoskeletal: General: Swelling, tenderness and signs of injury present. No deformity. Cervical back: Normal range of motion and neck supple. No rigidity. Right lower leg: No edema. Left lower leg: No edema. Comments: Right wrist with tenderness and pain at ulna aspect +neuro +sensation Reduced and limited ROM Join contractions (baseline) Lymphadenopathy: Cervical: No cervical adenopathy. Skin: General: Skin is warm and dry. Capillary Refill: Capillary refill takes less than 2 seconds. Coloration: Skin is not jaundiced or pale. Findings: No bruising, erythema, lesion or rash. Neurological: General: No focal deficit present. Mental Status: She is alert and oriented to person, place, and time. Cranial Nerves: No cranial nerve deficit. Sensory: No sensory deficit. Motor: No weakness. Coordination: Coordination normal. Gait: Gait normal. Psychiatric: Mood and Affect: Mood normal. Behavior: Behavior normal. Thought Content: Thought content normal. Judgment: Judgment normal. Assessment and Plan ASSESSMENT/PLAN: 1. Right wrist pain - ICD9: 719.43, ICD10: M25.531 (primary diagnosis) Secondary to fall No red flags - XR WRIST GENERAL 3V PA/LAT/OBL RIGHT-negative Andrea wrap OTC analgesics RICE therapy 2. Fall on same level from slipping, tripping or stumbling, initial encounter - ICD9: E885.9, ICD10: W01.0XXA Mechanical No red flags No LOC - XR WRIST GENERAL 3V PA/LAT/OBL RIGHT - XR HAND GENERAL 3V PA/LAT/OBL RIGHT 3. Right hand pain - ICD9: 729.5, ICD10: M79.641 Secondary to fall - XR HAND GENERAL 3V PA/LAT/OBL RIGHT-negative Andrea wrap OTC analgesics RICE therapy Lila Gray APRN.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 documented in this encounterWexner [facility] Center08-16-2024 History of Present illness Narrative* Ivon Laughlin RT(R) - 04/09/2024 4:50 PM EDT Radiology Service Progress Note PATIENT NAME: Jenni Strickland DATE OF SERVICE: April 09, 2024 TIME: 4:56 PM PATIENT IDENTITY VERIFICATION COMPLETED USING TWO (2) IDENTIFIERS: Name and Date of confirmedby patient verbally. FALL SCREENING: Has the patient had 2 falls in the last year or 1 fall with injury or currently using an Ambulatory Assistive Device (Walker, Cane, Wheelchair, Crutches, etc.)? No PATIENT GENDER DATA: Female. status: : No status: NO. PATIENT RELEVANT IMPLANT DATA REVIEWED: Yes PATIENT PRESENTS WITH AN IMPLANTABLE OR ATTACHED PHOTOLETTERING 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: No RADIOLOGY DEPARTMENT: General X-ray: Exam(s) Completed: Upper Extremity X- Ray(s): Wrist, right and Hand, right PERIPHERAL IV DATA: Not applicable SIGNED BY: RT Joselin(R) April 09, 2024 4:56 PM documented in this encounterWexner Medical Center07-19-2024 History of Present illness Narrative* Janay Bond RN - 03/12/2024 7:56 PM EDT CDM Telephonic Outreach Provider Action/FYI CDM: COPD Pt noted while quilting ran a needle through her right thumb finger nail, 03/06/24 Urgent Care visit,ordered Doxycycline and Warm soaks 4 times daily Pt noted the infection and soreness is improved, denies needs or concerns Goals, SDH updated Contacted for: Routine Telephonic Outreach Contact made with patient: Yes Patient identified by name and date of . Discussed care with patient Are you experiencing any new or worsening symptoms you need to talk about today? Yes Based on piece goods packer, the following disposition is advised: No symptoms or symptoms present, not severe. Routed to: No Action Needed LUCY Education Provided this Outreach: No Janay Bond RN March 12, 2024 7:56 PM documented in this encounterWexner Medical Center07-13-2024 History of Present illness Narrative* Ricardo Kraus PA - 03/06/2024 3:20 PM EDT Images from the original note were not included. This note was created using NoteWriter. Subjective Jenni Strickland is a 84 year old female. HPI 84-year-old female presents for right thumb injury. Patient states that she was knitting when her thimble fell off of her thumb and she accidentally stuck her knitting needle under her fingernail. She states that this occurred 6 days ago. She has had some redness around the cuticle of the nail,which has gotten worse. She has more swelling around the cuticle of the nail. Patient has some pus under the fingernail. No drainage. No fevers. She has been taking ibuprofen which has helped with the pain. She had some leftover metronidazole and took a few tablets of this. She has not tried anything else for her symptoms. No other complaint. 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 Take with food. furosemide (LASIX) 20 mg tablet TAKE 1 TABLET DAILY (NEED APPOINTMENT FOR FUTURE REFILLS) lisinopril (ZESTRIL) 20 mg tablet take 1 tablet daily amLODIPine (NORVASC) 2.5 mg tablet Take 1 tablet by mouth once daily. omeprazole (PRILOSEC) 20 mg capsule Take 1 capsule by mouth daily before breakfast. 1/2 hr before meal. umeclidinium (INCRUSE ELLIPTA) 62.5 mcg/actuation inhaler Inhale 1 Puff as instructed once daily. polyethylene glycol 3350 (MIRALAX ORAL) Take 17 g by mouth as needed (constipation). famotidine (PEPCID) 20 mg tablet Take 1 tablet by mouth at bedtime as needed. cyanocobalamin (VITAMIN B-12) 1,000 mcg tab Take 1 tablet by mouth once daily. fluticasone (FLONASE) 50 mcg/actuation nasal spray Use 2 Sprays in each nostril once daily. calcium carbonate ([id number])(TUMS 500 MG CHEWABLE TAB) Take 1,000 mg by mouth two times a day as needed (GERD). POTASSIUM GLUCONATE 595 MG (99 MG) TAB Take 595 mg by mouth once daily. MAGNESIUM 250 MG TAB Take 250 mg by mouth once daily. calcium carbonate/vitamin d3(CALCIUM 600 WITH VITAMIN D3 600 MG (1,500)-200 UNIT TAB) Take 1 tabletby mouth once daily. estradiol (ESTRACE) 0.01 % (0.1 mg/gram) vaginal cream Use 1 g vaginally one time a week. Lactobacillus acidophilus (FLORAJEN ACIDOPHILUS) 20 billion cell cap Take 460 mg by mouth once daily. (Patient taking differently: Take 460 mg by mouth as needed.) FAMILY HISTORY Problem Relation Age of Onset Colon Cancer Mother Colon Cancer Father other (colon polyps) Father Stroke Maternal Grandmother Colon Cancer Paternal Grandfather Breast Cancer Sister Cervical Cancer Sister COPD Daughter Heart Brother Coronary Artery Disease Sister fatal DC Coronary Artery Disease Brother fatal DC Diabetes Sister Stroke Sister Diabetes Son Social History Tobacco Use Smoking status: Never Smokeless tobacco: Never Vaping Use Vaping Use: Never used Substance Use Topics Alcohol use: No Drug use: No Review of Systems Constitutional: Negative for chills and fever. HENT: Negative for congestion, ear pain and sore throat. Respiratory: Negative for cough and shortness of breath. Cardiovascular: Negative for chest pain. Gastrointestinal: Negative for diarrhea and vomiting. Skin: Positive for color change and wound. Objective BP 116/70 Pulse 83 Temp 36.6 C (97.9 F) Resp 16 Wt 67 kg (147 lb 11.3 oz) SpO2 97% BMI 27.02 kg/m Physical Exam Vitals and nursing note reviewed. Constitutional: General: She is not in acute distress. Appearance: Normal appearance. She is not toxic-appearing. Cardiovascular: Rate and Rhythm: Normal rate and regular rhythm. Pulmonary: Effort: Pulmonary effort is normal. Breath sounds: Normal breath sounds. Musculoskeletal: Right hand: Swelling and tenderness present. Normal range of motion. Normal sensation. Normal capillary refill. Left hand: No swelling. Hands: Comments: Patient has swelling, erythema and tenderness noted around the cuticle of the right thumbnail. No drainage. She does have a linear area of purulence under the middle of the right thumbnail where she states the needle went down. No foreign body seen. Normal ROM of the thumb, but reports pain with movement due to swelling. No felon. No tenderness over the flexor surface. Cap refill less than 2 seconds. No lymphatic streaking. Skin: General: Skin is warm and dry. Neurological: Mental Status: She is alert. Assessment and Plan ASSESSMENT/PLAN: 1. Paronychia of right thumb - ICD9: 681.02, ICD10: L03.011 -cuticle cleansed with alcohol swab and iodine swab. I did attempt to lift the cuticle with an 18-gauge needle, but no drainage was expressed. Suspect the purulence is just under the fingernail. - Begin treatment with doxycycline -Warm soaks 4 times daily. - No lymphangetic streaking, this was defined for patient to watch for and to seek medical care immediately if appears - Follow up for recheck in two days Diagnosis and treatment plan were discussed and questions were answered to the patient's satisfaction. Pt acknowledged understanding of concepts and follow up plan. Specific signs and symptoms that would indicate the need for higher level of care were discussed in detail warranting prompt ER evaluation. FORTUNATO Dyer documented in this encounterWexner [facility] Center06-13-2024 History of Present illness Narrative* Janay Bond RN - 02/05/2024 4:10 PM EDT CDM Telephonic Outreach Provider Action/FYI CDM: COPD Pt noted has episodes of constipation, she is using Miralax as directed by . [facility] Pt is hydrating well and eating more fiber. Pt denies COPD symptom changes, concerns or need. Contacted for: Routine Telephonic Outreach Contact made with patient: Yes Patient identified by name and date of . Discussed care with patient Are you experiencing any new or worsening symptoms you need to talk about today? Yes Based on piece goods packer, the following disposition is advised: No symptoms or symptoms present, not severe. Routed to: No Action Needed LUCY Education Provided this Outreach: No Janay Bond RN February 05, 2024 4:10 PM documented in this encounterWexner Medical Center05-13-2024 History of Present illness Narrative* Mona Mancilla APRN.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 - 01/05/2024 8:27 AM EDT CC: Patient presents with: F/U 6 months HPI Jenni Strickland is a 83 year old female who presents today for routine follow up. HTN: Ms. Strickland indicates that she is feeling well and denies any symptoms referable to elevated blood pressure. Specifically denies headache, chest pain, palpitations, dyspnea, and peripheral edema. Patient denies any side effects of her medication(s) and is compliant with their regimen. She does check BP's away from this office with average BP's in the 120s/70s range. Jenni stays physically active with house work, yard work, and caring for her . She watches her diet for sodium, low fat and low cholesterol most of the time. Last 3 Encounter BP Readings: Date: BP: 01/05/2024 138/70 - 127/76 12/15/2023 120/80 11/24/2023 146/80 Chronic Bronchitis: Denies cough wheezing, fever, chills, or shortness. Feels well controlled and no longer needs to use her albuterol inhaler with regular use of ellipta. Right shoulder pain for the past 2 weeks. was injured so she has been helping him which shefeels is causing the issue. Pain is described as an ache that occurs with lifting but is mild. Denies any specific injury, weakness, numbness, edema, redness, or fever. REVIEW OF SYSTEMS See HPI PAST MEDICAL HISTORY Diagnosis Date Atopic dermatitis 06/09/2018 COPD (chronic obstructive pulmonary disease) ([facility]) 04/03/2015 Diaphragmatic hernia without mention of obstruction or gangrene Disorder of bone and cartilage, unspecified Diverticulitis of colon (without mention of hemorrhage)(562.11) Dyspnea on exertion 10/21/2017 chronic Esophagitis, unspecified Essential hypertension 11/13/2015 Milia 06/09/2018 Pigmented purpura ([facility]) 06/09/2018 Psoriasis Urticaria PAST SURGICAL HISTORY Procedure Laterality Date AFTER CATARACT LASER SURGERY bilateral CHEST TUBE - INSERT 1984 trauma from bull, rib fractures, on vent. 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 POTASSIUM GLUCONATE 595 MG (99 MG) TAB Take 595 mg by mouth once daily. naproxen (NAPROSYN) 500 mg tablet Take 1 tablet by mouth two times a day as needed (for pain/inflammation). Take with food. omeprazole (PRILOSEC) 20 mg capsule Take 1 capsule by mouth daily before breakfast. 1/2 hr before meal. estradiol (ESTRACE) 0.01 % (0.1 mg/gram) vaginal cream Use 1 g vaginally one time a week. umeclidinium (INCRUSE ELLIPTA) 62.5 mcg/actuation inhaler Inhale 1 Puff as instructed once daily. polyethylene glycol 3350 (MIRALAX ORAL) Take 17 g by mouth as needed (constipation). Lactobacillus acidophilus (FLORAJEN ACIDOPHILUS) 20 billion cell cap Take 460 mg by mouth once daily. (Patient taking differently: Take 460 mg by mouth as needed.) famotidine (PEPCID) 20 mg tablet Take 1 tablet by mouth at bedtime as needed. cyanocobalamin (VITAMIN B-12) 1,000 mcg tab Take 1 tablet by mouth once daily. fluticasone (FLONASE) 50 mcg/actuation nasal spray Use 2 Sprays in each nostril once daily. calcium carbonate ([id number])(TUMS 500 MG CHEWABLE TAB) Take 1,000 mg by mouth two times a day as needed (GERD). MAGNESIUM 250 MG TAB Take 250 mg by mouth once daily. calcium carbonate/vitamin d3(CALCIUM 600 WITH VITAMIN D3 600 MG (1,500)-200 UNIT TAB) Take 1 tabletby mouth once daily. FAMILY HISTORY Problem Relation Age of Onset Colon Cancer Mother Colon Cancer Father other (colon polyps) Father Stroke Maternal Grandmother Colon Cancer Paternal Grandfather Breast Cancer Sister Cervical Cancer Sister COPD Daughter Heart Brother Coronary Artery Disease Sister fatal DC Coronary Artery Disease Brother fatal DC Diabetes Sister Stroke Sister Diabetes Son Social History Tobacco Use Smoking status: Never Smokeless tobacco: Never Vaping Use Vaping Use: Never used Substance Use Topics Alcohol use: No Drug use: No PHYSICAL EXAM BP 127/76 (BP Site: Left Arm, BP Position: Sitting, BP Cuff Size: Regular Adult) Pulse 77 Resp 12 Ht 157.5 cm (5' 2) Wt 64 kg (141 lb) SpO2 96% BMI 25.79 kg/m General Appearance: well appearing, in no acute distress, alert Pysch: mood and affect broad and appropriate Skin: Skin color, texture, turgor normal for age; Eyes: conjunctiva pink and moist, no icterus, sclera white, non-injected Lungs: Lungs clear to auscultation. No wheezing, rhonchi, rales. Heart: RRR without murmur, gallop, or rubs. No ectopy Neck: Inspection: normal Palpation: no deformity and non-tender ROM: full Musculoskeletal: Right shoulder: normal to inspection. reported tenderness with palpation of anterior portion of shoulder joint. No tenderness to palpation of deltoid, biceps tendon, trapezius, clavicle, AC (Acromioclavicular) joint, and SC (Sternoclavicular) joint. ROM: full. Special tests: Drop arm: -, Empty Can: - , Infraspinatus: -, , Neer - Upper extremities: reflexes: +2 to bilateral U/L extremities.. Muscle strength: 5/5 upper, bilaterally BUE Extremities: No deformities, edema, skin discoloration, clubbing or cyanosis. Good capillary refill. Pulses palpable Health maintenance reviewed with patient: Covid-19 Vaccine(4 - 2022- season) due on 06/23/2024 DTaP,Tdap,Td Vaccine(1 - Tdap) due on 01/04/2025 RSV Vaccine(1 - 1-dose 60+ series) due on 01/04/2025 Shingrix Vaccine(2 of 3) due on 01/04/2025 Diabetes Screening due on 09/06/2026 Bone Density Screening Completed Spirometry Completed Influenza Vaccine Completed Advance Directive Discussion Completed Behavioral Health Screening Completed Pneumococcal Vaccine: 65+ Completed DATA REVIEWED: No new labs ASSESSMENT/PLAN: 1. Essential hypertension - ICD9: 401.9, ICD10: I10 (primary diagnosis) - Controlled - Continue current medications - Recommend home blood pressure monitoring, to bring results to next visit - Encouraged sodium restriction, DASH or Mediterranean diet - Recommend regular aerobic exercise - BASIC METABOLIC PANEL - COMPLETE BLOOD COUNT 2. Chronic bronchitis, unspecified chronic bronchitis type (HCC) - ICD9: 491.9, ICD10: J42 Controlled with current treatment 3. Acute pain of right shoulder - ICD9: 719.41, ICD10: M25.511 Probable muscle/tendon strain due to lifting Rest, ice, and stretching as discussed Naproxen as ordered Follow up if no improvement or worsening symptoms and we will do imaging at that time. 4. Annual physical exam - ICD9: V70.0, ICD10: Z00.00 Not reviewed today, blood work ordered - BASIC METABOLIC PANEL - COMPLETE BLOOD COUNT - LIPID PANEL BASIC Prescription instructions reviewed with patient as applicable. Potential red flag symptoms discussed with the patient. Reviewed appropriate action plan to take if red flag symptoms occur. Patient agreeable to treatment plan. Mona Mancilla APRN.CNP documented in this encounterWexner Medical Center04-24-2024 History of Present illness Narrative* Janay Bond RN - 12/17/2023 12:38 PM EDT CDM Telephonic Outreach Provider Action/FYI 11/18/23 [facility] ED: Pt present with Abd pain Chart noted Diverticulitis small intestine w/o perforation or abscess w/o bleeding Pt noted: Treated with IVF, pain Mgt, CT - Diverticulitis Pt denies abdominal pain, has occasional discomfort if she eats certain foods, Pt denies nausea, vomiting, diarrhea, Pt reports eating and hydrating well, Pt is monitoring her diet, low residue diet ED Follow up Appt 12/25/23 Dr. Reyes [facility] Contacted for: Routine Telephonic Outreach Contact made with patient: Yes Patient identified by name and date of . Discussed care with patient Are you experiencing any new or worsening symptoms you need to talk about today? Yes Based on piece goods packer, the following disposition is advised: No symptoms or symptoms present, not severe. Routed to: No Action Needed LUCY Education Provided this Outreach: No Janay Bond RN December 17, 2023 12:44 PM documented in this encounterWexner Medical Center04-22-2024 History of Present illness Narrative* Mili Escamilla MD - 12/15/2023 8:54 AM EDT Jenni Strickland 1940 REFERRING PHYSICIAN: Shelia Franklin APRN.CNP CHIEF COMPLAINT: Abdominal Pain (Recent ED visit to [facility] for abd pain 11/18/2023 -- CT scan abd/pelv showed diverticulitis and large hiatal hernia) HPI: The patient is a 83 year old female referred for endoscopy. Jenni had an episode of severe abdominal pain. She was evaluated at [facility] ED (11/18/2023) and underwent CT scan which revealed - large hiatal hernia, possible small bowel diverticulitis - left sided and an umbilical hernia containing fat. She states that presently she has no abdominal pain. She also notes acid reflux and indigestion despite PPI use. She states that her mother was diagnosed with colon cancer at age 60 and of this at age 69 andher father had precancerous polyps. Her last colonoscopy was in 2014. Her past medical history is significant for HTN/COPD. 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 omeprazole (PRILOSEC) 20 mg capsule Take 1 capsule by mouth daily before breakfast. 1/2 hr before meal. estradiol (ESTRACE) 0.01 % (0.1 mg/gram) vaginal cream Use 1 g vaginally one time a week. umeclidinium (INCRUSE ELLIPTA) 62.5 mcg/actuation inhaler Inhale 1 Puff as instructed once daily. polyethylene glycol 3350 (MIRALAX ORAL) Take 17 g by mouth as needed (constipation). Lactobacillus acidophilus (FLORAJEN ACIDOPHILUS) 20 billion cell cap Take 460 mg by mouth once daily. (Patient taking differently: Take 460 mg by mouth as needed.) famotidine (PEPCID) 20 mg tablet Take 1 tablet by mouth at bedtime as needed. albuterol HFA (PROVENTIL HFA, VENTOLIN HFA) 90 mcg/actuation inhaler Inhale 2 Puffs as instructed every 4 hours as needed for wheezing/shortness of breath. With spacer please. cyanocobalamin (VITAMIN B-12) 1,000 mcg tab Take 1 tablet by mouth once daily. fluticasone (FLONASE) 50 mcg/actuation nasal spray Use 2 Sprays in each nostril once daily. calcium carbonate ([id number])(TUMS 500 MG CHEWABLE TAB) Take 1,000 mg by mouth two times a day as needed (GERD). POTASSIUM GLUCONATE 595 MG (99 MG) TAB Take 595 mg by mouth once daily. MAGNESIUM 250 MG TAB Take 250 mg by mouth once daily. calcium carbonate/vitamin d3(CALCIUM 600 WITH VITAMIN D3 600 MG (1,500)-200 UNIT TAB) Take 1 tabletby mouth once daily. metroNIDAZOLE (FLAGYL) 500 mg tablet Take 500 mg by mouth four times daily. (Patient not taking: Reported on 12/15/2023) BIOTIN ORAL Take by mouth. (Patient not taking: Reported on 12/15/2023) No current facility-administered medications for this visit. ALLERGIES: Penicillins; Robitussin A-C [Codeine-Guaifenesin]; Wasps; Elastic; Gloves, Latex; Hctz [Thiazides]; Sulfa (Sulfonamide Antibiotics); and Zocor [Simvastatin] PERSONAL HISTORY: Social History Tobacco Use Smoking status: Never Smokeless tobacco: Never Vaping Use Vaping Use: Never used Substance Use Topics Alcohol use: No Drug use: No FAMILY HISTORY Problem Relation Age of Onset Colon Cancer Mother Colon Cancer Father other (colon polyps) Father Stroke Maternal Grandmother Colon Cancer Paternal Grandfather Breast Cancer Sister Cervical Cancer Sister COPD Daughter Heart Brother Coronary Artery Disease Sister fatal DC Coronary Artery Disease Brother fatal DC Diabetes Sister Stroke Sister Diabetes Son REVIEW OF SYMPTOMS: The review of systems data was entered by the nurse and reviewed by me There are no exam notes on file for this visit. PHYSICAL EXAMINATION: General: The patient is 83 year old female, well nourished, well hydrated in no acute distress. Thepatient is oriented to time, place, and person. VITALS: Blood pressure 120/80, pulse 83, temperature 36.2 C (97.2 F), resp. rate 20, height 157.5 cm (5' 2), weight 64.3 kg (141 lb 12.8 oz), SpO2 98%. Body mass index is 25.94 kg/m . Head: Normal cephalic, atraumatic Eyes: pupils are equally round, sclera are clear/anicteric, wearing glasses Neck is supple with no tracheal deviation Cardiac: regular Respiratory: Normal respiratory excursion and pattern. Abdominal exam: benign Extremities: no clubbing, cyanosis or edema. Neuro: non focal Psych: normal mood Assessment IMPRESSION: indigestion, abnormal CT scan of GI tract PLAN: I have discussed the above with the patient. I have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 500 MG CHEWABLE TAB) PRN POTASSIUM GLUCONATE 595 MG (99 MG) TAB Take one(1) tablet daily. MAGNESIUM 250 MG TAB Take one(1) tablet daily. calcium carbonate/vitamin d3(CALCIUM 600 WITH VITAMIN D3 600 MG (1,500)-200 UNIT TAB) Take one(1) tablet twice daily. FAMILY HISTORY Problem Relation Age of Onset Colon Cancer Mother Colon Cancer Father other (colon polyps) Father Stroke Maternal Grandmother Colon Cancer Paternal Grandfather Breast Cancer Sister Cervical Cancer Sister COPD Daughter Heart Brother Coronary Artery Disease Sister fatal DC Coronary Artery Disease Brother fatal DC Diabetes Sister Stroke Sister Diabetes Son Social History Tobacco Use Smoking status: Never Smokeless tobacco: Never Substance Use Topics Alcohol use: No Drug use: No Objective Physical Exam Vitals and nursing note reviewed. Constitutional: Appearance: Normal appearance. Cardiovascular: Rate and Rhythm: Normal rate and regular rhythm. Heart sounds: Normal heart sounds. Pulmonary: Effort: Pulmonary effort is normal. No respiratory distress. Breath sounds: Normal breath sounds. No wheezing or rales. Skin: General: Skin is warm and dry. Findings: No erythema or rash. Neurological: Mental Status: She is alert. ASSESSMENT/PLAN: 1. Viral URI with cough - ICD9: 465.9, ICD10: J06.9 (primary diagnosis) - Discussed viral etiology and rationale for treatment. - Symptomatic treatment with prn analgesia - Supportive care with fluids and rest - INFLUENZA A&B MOLECULAR (POC) - COVID NAAT, UPPER RESPIRATORY, ROUTINE 2. Influenza A - ICD9: 487.1, ICD10: J10.1 - OSELTAMIVIR 75 MG CAPSULE - supportive care as discussed. - Follow-up with your PCP in 3-5 days if symptoms have not improved or sooner if symptoms worsen - Discussed red flags and need for immediate medical evaluation if any occur. - Discussed supportive care treatment with fluids, rest and analgesia. - Discussed expected course of illness Lanie Chery APRN.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 documented in this encounterWexner [facility] Center11-14-2023 Miscellaneous Notes* Telephone Encounter - Queenie Rosario PA-C - 07/08/2023 12:29 PM EST I am happy to do whatever is easiest for her. I refilled the medications as requested. Let her knowif there's anything else we can do to support her during this tough time with her 's health. Queenie Rosario PA-C * Telephone Encounter - Mildred Canseco - 07/08/2023 10:31 AM EST Pt approached the podium with concerns about her medications. She said Medicare told her she needs to answer a phone call regarding if she needs them or not. Pt is wondering why she needs to do this. Pt states If the doctor ordered them then I obviously need them. Pt states her has aggressive cancer and shes not home a lot to answer the phone and isdoing this all on her own and forgets to check her messages. Fears she will not be able to keep herself healthy enough to take care of her if she doesn't have medications. Pt states the pharmacy and medicare said she needed to have all of her prescriptions mail ordered, but this doesn't work for the patient. She last saw Queenie Rosario on 06/23 and she is upset that sheis getting the run around from medicare and [employer] Pt states she needs AmLODIPine rani. She has been out of this medication for a week. She is also curious if her Lisinopril and Furosemide will be refilled when she runs out. Patient is requesting to have her medications called into the pharmacy where she can just pick them up because shes getting the run around from [employer] and medicare. She would like to pick them up at [facility] if this is possible. I told the patient I would send on a message to see what we could do to see if we could get the AmLODIPine reordered to be picked up and what her options are for refills on the other medications mentioned. Pt stated when we figure out what we can do for her we can call her after 1 oclock when she is home and if she doesn't answer to leave a detailed voicemail about what the next steps are. Thank you, Mildred Patient has been identified by name and date of : Yes, Patient phones for refill(s): Requested Prescriptions Pending Prescriptions Disp Refills amLODIPine (NORVASC) 2.5 mg tablet 90 tablet 2 Sig: Take 1 tablet by mouth once daily. Date of last office visit in primary care: Visit date not found Date of next office visit in primary care: Visit date not found Last 2 Encounter Wt Readings: Date: Wt: 06/23/2023 67.6 kg (149 lb) 12/19/2022 67.1 kg (148 lb) Previous labs/tests for medication: Not applicable Please advise. Thank you. Mildred Canseco. documented in this encounterWexner [facility] Center10-30-2023 History of Present illness Narrative* Queenie Rosario PA-C - 06/23/2023 8:29 AM EDT CC: Patient presents with: F/U 6 months: med refills needed HPI Jenni Strickland is a 83 year old female who presents today for 6 month f/u. Last visit was with Dr. Castro on 12/19/2022. Denies any concerns today. HTN: Ms. Strickland indicates a history of hypertension and states that she is feeling well and denies any symptoms referable to elevated blood pressure. Specifically denies headache, chest pain, palpitations,dyspnea, and peripheral edemaHome Bps usually ~130s/70s. Patient denies any side effects of her medication(s) and is compliant with their regimen. She endorses regular aerobic exercise- I just keep busy. Doing all the housework, and yardwork as is recovering from prostate cancer. She watches her diet for sodium, low fat and low cholesterol most of the time. Last 3 Encounter BP Readings: Date: BP: 06/23/2023 144/70 12/19/2022 138/80 10/16/2022 156/88 COPD: Does not use a maintenance inhaler everyday, typically uses 2-3 times/week and that seems to be exacerbated by dust or mold. OAB: No longer taking oxybutynin, as she just stopped it randomly and has had no residual symptoms. Taking zinc, vitamin D, and vitamin E to boost immune system and for prevention of covid. REVIEW OF SYSTEMS See HPI All other systems negative. 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 estradiol (ESTRACE) 0.01 % (0.1 mg/gram) vaginal cream Use 1 g vaginally one time a week. umeclidinium (INCRUSE ELLIPTA) 62.5 mcg/actuation inhaler Inhale 1 Puff as instructed once daily. omeprazole (PRILOSEC) 20 mg capsule Take 1 capsule by mouth daily before breakfast. 1/2 hr before meal. furosemide (LASIX) 20 mg tablet TAKE 1 TABLET DAILY (NEED APPOINTMENT FOR FUTURE REFILLS) lisinopril (ZESTRIL, PRINIVIL) 20 mg tablet TAKE 1 TABLET DAILY benzonatate (TESSALON PERLES) 100 mg capsule Take 2 capsules by mouth three times daily as needed. oxybutynin ER (DITROPAN XL) 10 mg 24 hr tablet Take 1 tablet by mouth once daily. polyethylene glycol 3350 (MIRALAX ORAL) Take by mouth. Lactobacillus acidophilus (FLORAJEN ACIDOPHILUS) 20 billion cell cap Take 460 mg by mouth once daily. famotidine (PEPCID) 20 mg tablet Take 1 tablet by mouth at bedtime as needed. albuterol HFA (PROVENTIL HFA, VENTOLIN HFA) 90 mcg/actuation inhaler Inhale 2 Puffs as instructed every 4 hours as needed for wheezing/shortness of breath. With spacer please. cyanocobalamin (VITAMIN B-12) 1,000 mcg tab Take 1 tablet by mouth once daily. BIOTIN ORAL Take by mouth. fluticasone (FLONASE) 50 mcg/actuation nasal spray Use 2 Sprays in each nostril once daily. calcium carbonate ([id number])(TUMS 500 MG CHEWABLE TAB) PRN POTASSIUM GLUCONATE 595 MG (99 MG) TAB Take one(1) tablet daily. MAGNESIUM 250 MG TAB Take one(1) tablet daily. calcium carbonate/vitamin d3(CALCIUM 600 WITH VITAMIN D3 600 MG (1,500)-200 UNIT TAB) Take one(1) tablet twice daily. FAMILY HISTORY Problem Relation Age of Onset Colon Cancer Mother Colon Cancer Father other (colon polyps) Father Stroke Maternal Grandmother Colon Cancer Paternal Grandfather Breast Cancer Sister Cervical Cancer Sister COPD Daughter Heart Brother Coronary Artery Disease Sister fatal DC Coronary Artery Disease Brother fatal DC Diabetes Sister Stroke Sister Diabetes Son Social History Tobacco Use Smoking status: Never Smokeless tobacco: Never Substance Use Topics Alcohol use: No Drug use: No PHYSICAL EXAM BP 128/64 (BP Site: Left Arm, BP Position: Sitting, BP Cuff Size: Large Adult) Pulse (!) 56 Temp 36.7 C (98 F) Resp 12 Ht 157.5 cm (5' 2) Wt 67.6 kg (149 lb) SpO2 95% BMI 27.25 kg/m General Appearance: well appearing, in no acute distress, alert Psych: mood and affect broad and appropriate Skin: Skin color, texture, turgor normal for age Lungs: Lungs clear to auscultation. No wheezing, rhonchi, rales. Heart: RRR without murmur, gallop, or rubs. Extremities: No gross deformities, significant edema, skin discoloration, clubbing or cyanosis. Neurological: Gait normal. No focal neurological deficits. Sensation grossly intact. ASSESSMENT/PLAN: 1. Essential hypertension - ICD9: 401.9, ICD10: I10 (primary diagnosis) -Mildly elevated today in office, but improved upon recheck. - Continue current medications - Recommend home blood pressure monitoring, to bring results to next visit - Encouraged sodium restriction, DASH or Mediterranean diet - Recommend regular aerobic exercise - AMLODIPINE 2.5 MG TABLET - CBC + DIFF - COMP METABOLIC PANEL 2. Chronic bronchitis, unspecified chronic bronchitis type (HCC) - ICD9: 491.9, ICD10: J42 Stable on current regimen, using Incruse Ellipta as needed - CBC + DIFF - COMP METABOLIC PANEL 3. Dyslipidemia (high LDL; low HDL) - ICD9: 272.4, ICD10: E78.5 - Control undetermined, due for labs - Counseled on healthy diet and regular exercise - CBC + DIFF - COMP METABOLIC PANEL - LIPID PANEL BASIC Follow-up 6 months routine issues Prescription instructions reviewed with patient as applicable. Potential red flag symptoms discussed with the patient. Reviewed appropriate action plan to take if red flag symptoms occur. Patient agreeable to treatment plan. Queenie Rosario PA-C documented in this encounterWexner Medical Center10-24-2023 History of Present illness Narrative* Janay Bond RN - 06/17/2023 1:31 PM EDT CDM Telephonic Outreach Provider Action/FYI CDM: COPD Left a message to verify symptom status, instructed to call PCP with any changes in condition?or needs. Contacted for: Routine Telephonic Outreach Contact made with patient: No, left message. Janay Bond RN June 17, 2023 1:33 PM * Janay Bond RN - 06/16/2023 7:02 PM EDT CDM Telephonic Outreach Provider Action/FYI CDM: COPD Left a message to verify symptom status, instructed to call PCP with any changes in condition?or needs. Contacted for: Routine Telephonic Outreach Contact made with patient: No, left message. Janay Bond RN June 16, 2023 7:02 PM documented in this encounterWexner Medical Center09-01-2023 History of Present illness Narrative* Janay Bond RN - 04/25/2023 12:19 PM EDT CDM Telephonic Outreach Provider Action/FYI CDM COPD Left a message to verify symptom status, instructed to contact PCP for condition changes and needs. Contacted for: Routine Telephonic Outreach Contact made with patient: No, left message. Janay Bond RN April 25, 2023 12:19 PM * Janay Bond RN - 04/24/2023 10:55 AM EDT CD Telephonic Outreach Provider Action/FYI CDM COPD Left a message to verify symptom status, instructed to contact PCP for condition changes and needs. Contacted for: Routine Telephonic Outreach Contact made with patient: No, left message. Janay Bond RN April 24, 2023 10:55 AM documented in this encounterWexner Medical Center07-31-2023 History of Present illness Narrative* Janay Bond RN - 03/24/2023 12:08 PM EDT CD Telephonic Outreach Provider Action/FYI: Routed updates to Dr. Castro's Covering provider for symptom updates, (Office staff, Please contact Pt for any advisement.) Spk with Pt she noted she has intermittent short episodes of dizziness, denies current symptoms. Instructed to schedule Appt with PCP/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. Pt noted she is hydrating well, and is not driving, her is able to drive as needed. Instructed on fall prevention, Pt verbalized understanding, Pt denies needs, she noted is getting a new BP monitor. Pt reports will schedule an Appt after her husbands Appt on 03/25/23 Contacted for: Routine Telephonic Outreach Contact made with patient: Yes Patient identified by name and date of . Discussed care with patient Are you experiencing any new or worsening symptoms you need to talk about today? Yes Based on piece goods packer, the following disposition is advised: No symptoms or symptoms present, not severe. Routed to: No Action Needed LUCY Education Provided this Outreach: No Janay Bond RN March 24, 2023 12:58 PM documented in this encounterWexner Medical Center06-27-2023 History of Present illness Narrative* Janay Bond RN - 02/18/2023 1:01 PM EDT CDM Telephonic Outreach Provider Action/FYI CDM: COPD Called Pt to verify symptoms and needs, line was busy, unable to leave a message Goals Completed Contacted for: Routine Telephonic Outreach Contact made with patient: No, unable to leave message. Will reattempt call Janay Bond RN February 18, 2023 1:01 PM * Janay Bond RN - 02/17/2023 4:53 PM EDT CDM Telephonic Outreach Provider Action/FYI CDM: COPD Called Pt to verify symptoms and needs, line was busy, unable to leave a message Contacted for: Routine Telephonic Outreach Contact made with patient: No, unable to leave message. Will reattempt call Janay Bond RN February 17, 2023 4:53 PM * Janay Bond RN - 02/14/2023 10:25 AM EDT CDM Telephonic Outreach Provider Action/FYI CDM: COPD Called Pt to verify symptoms and needs, line was busy, unable to leave a message Contacted for: Routine Telephonic Outreach Contact made with patient: No, unable to leave message. Will reattempt call Janay Bond RN February 14, 2023 10:25 AM documented in this encounterWexner Medical Center06-01-2023 History of Present illness Narrative* Janay Bond RN - 01/23/2023 3:42 PM EDT CDM Telephonic Outreach Provider Action/FYI CDM COPD Called Pt left a message to verify symptom status and needs. Instructed to call PCP with any symptom or condition changes. Contacted for: Routine Telephonic Outreach Contact made with patient: No, left message. Janay Bond RN January 23, 2023 3:44 PM * Janay Bond RN - 01/22/2023 3:16 PM EDT CDM Telephonic Outreach Provider Action/FYI CDM: COPD Spk with , he noted noted Jenni was outside, and will give her message, requested a call back. Contacted for: Routine Telephonic Outreach Contact made with patient: Yes Patient identified by name and date of . Discussed care with spouse Janay Bond RN January 22, 2023 3:16 PM documented in this encounterWexner Medical Center05-04-2023 History of Present illness Narrative* Janay Bond RN - 12/26/2022 10:27 AM EDT CDM Telephonic Outreach Provider Action/FYI CDM: COPD Continues with [facility] in [place] 3x week, BP 130/80 Denies needs, notes she is under a lot of stress due to her husbands health issues, and has occasional brain fog. Contacted for: Routine Telephonic Outreach Contact made with patient: Yes Patient identified by name and date of . Discussed care with patient Are you experiencing any new or worsening symptoms you need to talk about today? No Disease Specific Do you check your blood pressure at home? Yes, Enter readings: 130/80 Do you have new or worsening shortness of breath with activity? No Do you have new or worsening cough? No Do you have new or worsening wheezing? No Do you need to use your rescue (Albuterol) inhaler or nebulizer more often than normal? No Based on piece goods packer, the following disposition is advised: Symptoms present, not severe. Routed to: No Action Needed LUCY Education Provided this Outreach: No Janay Bond RN December 26, 2022 10:29 AM documented in this encounterWexner Medical Center04-27-2023 History of Present illness Narrative* Da Castro MD - 12/19/2022 11:31 AM EDT Reason for Visit No chief complaint on file. Jenni Strickland is a 82 year old female who presents here today for Above Complaints.. Health Maintenance DTAP,TDAP,TD(1 - Tdap) SHINGRIX VACCINE(2 of 3) COVID-19 VACCINE(4 - Booster for Moderna series) ADVANCE DIRECTIVE DISCUSSION DEPRESSION ASSESSMENT HPI HTN: BP is over all controlled. She has some anxiety with sick spouse , it contributes to raising her blood pressure. Checks BP at home. Compliant with medications. Denies any chest pain, palpitations, SOB, swelling in the feet. Careful with diet to avoid salt, trying to eat more fruits and vegetables, exercises regularly. She uses oxy butynin if she needs it. Was on tudroza and albuterol for copd but stopped getting it filled, and not been on it for a while. She does feel sob on and off. No problem-specific Assessment & Plan notes found for this encounter. 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 FAMILY HISTORY Problem Relation Age of Onset Colon Cancer Mother Colon Cancer Father other (colon polyps) Father Stroke Maternal Grandmother Colon Cancer Paternal Grandfather Breast Cancer Sister Cervical Cancer Sister COPD Daughter Heart Brother Coronary Artery Disease Sister fatal DC Coronary Artery Disease Brother fatal DC Diabetes Sister Stroke Sister Diabetes Son Social History Tobacco Use Smoking status: Never Smokeless tobacco: Never Substance Use Topics Alcohol use: No Drug use: No Past medical history, appointments, medications, allergies reviewed. Pertinent Lab/Diagnostic Studies are reviewed and discussed today Current Outpatient Medications: amLODIPine (NORVASC) 2.5 mg tablet furosemide (LASIX) 20 mg tablet lisinopril (ZESTRIL, PRINIVIL) 20 mg tablet benzonatate (TESSALON PERLES) 100 mg capsule oxybutynin ER (DITROPAN XL) 10 mg 24 hr tablet polyethylene glycol 3350 (MIRALAX ORAL) Lactobacillus acidophilus (FLORAJEN ACIDOPHILUS) 20 billion cell cap famotidine (PEPCID) 20 mg tablet albuterol HFA (PROVENTIL HFA, VENTOLIN HFA) 90 mcg/actuation inhaler aclidinium bromide (TUDORZA PRESSAIR) 400 mcg/actuation aepb inhaler estradiol (ESTRACE) 0.01 % (0.1 mg/gram) vaginal cream hydrOXYzine HCl (ATARAX) 25 mg tablet cyanocobalamin (VITAMIN B-12) 1,000 mcg tab BIOTIN ORAL fluticasone (FLONASE) 50 mcg/actuation nasal spray esomeprazole (NEXIUM) 40 mg capsule calcium carbonate ([id number])(TUMS 500 MG CHEWABLE TAB) POTASSIUM GLUCONATE 595 MG (99 MG) TAB MAGNESIUM 250 MG TAB calcium carbonate/vitamin d3(CALCIUM 600 WITH VITAMIN D3 600 MG (1,500)-200 UNIT TAB) amLODIPine (NORVASC) 2.5 mg tablet Review of Systems CONSTITUTIONAL: No fevers, chills night sweats, unintended weight loss CARDIOVASCULAR: No chest pain, dyspnea, palpitations, orthopnea, PND, ankle edema. PULM: No dyspnea, unexplained cough. GI: No dysphagia/odynophagia, problematic reflux, constipation, diarrhea, changes in stool habits, hematochezia, melena. : No new urinary complaints, including dysuria, gross hematuria or pyuria. NEURO: No new balance problems, peripheral weakness/paresthesias or numbness of concern. Physical Exam BP 138/80 Pulse 73 Temp 37 C (98.6 F) Resp 16 Wt 67.1 kg (148 lb) SpO2 97% BMI 27.07 kg/m General appearance: Well appearing, alert, in no acute distress, well nourished. Skin: Skin color, texture, turgor normal, no suspicious rashes or lesions Head: Normocephalic, no masses, lesions, tenderness or abnormalities Eyes: Anicteric sclera. Pupils are equally round and reactive to light. Extraocular movements are intact. Lungs: Lungs clear to auscultation. No wheezing, rhonchi, rales Heart: RRR without murmur, gallop, or rubs. Extremities: No deformities, edema, skin discoloration, clubbing or cyanosis. Good capillary refill. ASSESSMENT/PLAN: 1. Chronic obstructive pulmonary disease, unspecified COPD type (HCC) - ICD9: 496, ICD10: J44.9 (primary diagnosis) Restarted medication and that think it will help her - INCRUSE ELLIPTA 62.5 MCG/ACTUATION POWDER FOR INHALATION 2. Vaginal dryness - ICD9: 625.8, ICD10: N89.8 - ESTRADIOL 0.01% (0.1 MG/GRAM) VAGINAL CREAM 3. Essential hypertension - ICD9: 401.9, ICD10: I10 - good control - Recommended regular aerobic exercise. - Recommend home blood pressure monitoring, to bring results in on next visit - Goal of BP <130/80 Da Castro MD documented in this encounterWexner Medical Center04-24-2023 Miscellaneous Notes* Telephone Encounter - Seema Taylor LPN - 12/16/2022 10:28 AM EDT Spoke with pt and information listed below given. Pt verbalizes understanding. Apt booked. Seema Taylor LPN * Telephone Encounter - Sylvie Soares RN - 12/16/2022 10:12 AM EDT Called and left a voicemail for the Patient to call back and ask for a nurse to receive the providers message. Sylvie Soares RN * Telephone Encounter - Mona Mancilla APRN.CNP - 12/16/2022 9:39 AM EDT Patient over due for follow up. Please assist with scheduling. Thank you Mona Mancilla APRN.REE * Telephone Encounter - Sylvie Soarse RN - 12/16/2022 8:13 AM EDT Pt reports she is almost out of her medication. She is requesting a short term be sent to [facility] and shelter be sent to [facility]. Please call and let Pt know once medication is sent. Patient has been identified by name and date of : Yes, Provider Dr Castro Date 12/16/22 Time 0815 Patient phones for refill(s): Requested Prescriptions Pending Prescriptions Disp Refills amLODIPine (NORVASC) 2.5 mg tablet 90 tablet 3 Sig: Take 1 tablet by mouth once daily. (Note change from 5mg 1/2 every day) amLODIPine (NORVASC) 2.5 mg tablet 15 tablet 0 Sig: Take 1 tablet by mouth once daily. (Note change from 5mg 1/2 every day) Date of last office visit in primary care: 10/18/22 Future visit: none Last 2 Encounter Wt Readings: Date: Wt: 10/16/2022 67.1 kg (148 lb) 06/11/2022 69.9 kg (154 lb) Previous labs/tests for medication: Blood Pressure: BUN (mg/dL) Date Value 09/20/2021 19 Sodium (mmol/L) Date Value 09/20/2021 142 Last 1 Encounter BP Readings: Date: BP: 10/16/2022 156/88 Please advise. Thank you. Sylvie Soares RN documented in this encounterW[facility]04-11-2023 History of Present illness Narrative* Janay Bond RN - 12/03/2022 2:49 PM EDT INSIGHT CDM TELEPHONIC OUTREACH Provider Action/FYI: JESSICA COPD Spk with Pt's he noted Jenni is at [facility], he denies she has any new or worsening COPD or other symptoms or needs. He noted they are exercising at [facility], she is doing well. Contact made with patient: Yes Patient identified by name and . Discussed care with spouse It s nice talking to you again. As a reminder, this is our bi-weekly check-in where I will be asking you questions about your health. This will only take a few minutes of your time. Is this a good time? Yes Symptoms What Chronic Disease(s) does the patient have: COPD Do you check your blood pressures at home? Yes, Enter readings: Not Available Do you have new or worse shortness of breath with activity? No Do you have new or worsening cough? No Do you have new or worsening wheezing? No Do you need to use your rescue (Albuterol) inhaler or nebulizer more often than normal? No Are you having any other symptoms that your PCP needs to know about? No Symptoms: Symptom Escalation LUCY Education Ordered -: No The patient required an escalation for symptom(s)? No Medications Do you have any questions about taking your medication or which medications you should be on? No Do you need any medication refills at this time, including any of the medications you might take only when needed? No Social We would like to make sure you have what you need so that your basic needs are met- including your personal safety, food, housing, transportation and medications? Would you like to speak with a social work team psychologist to help give you support for any of these needs? No It can be normal to feel anxious or down during a time like this. Would you like to talk to a mental health professional about how you have been feeling? No Closing Thank you for taking the time to talk with me today. We want to work with you to ensure that we arekeeping your medical condition(s) well-controlled and to keep you healthy and out of the doctor's office or hospital. It s also not too late for me to sign you up for automated weekly questionnaires through [employer]. This is an easy way for us to stay connected each week. Are you interested? No, I understand. We can always sign you up in the future if you change your mind. Just as a reminder, will continue to call you every other week to check in on your health. Our calls should take 10-15 minutes or less. Remember, if you have concerns in between our calls, please call your PCP's office right away. Thank you. Enter next patient outreach date for two weeks on the same day of the week as today in the Track PtOutreach and End outreach. Janay Bond RN December 03, 2022 2:49 PM documented in this encounterWexner [facility] Center04-06-2023 Miscellaneous Notes* Telephone Encounter - Daya Chen Ma - 11/28/2022 10:11 AM EDT Patient last visit with PCP 10/18/22 Follow up appointment scheduled none Daya Chen Ma documented in this encounterWexner [facility] Center03-15-2023 History of Present illness Narrative* Janay Bond, RN - 11/06/2022 4:07 PM EDT INSIGHT CDM TELEPHONIC OUTREACH Provider Action/FYI: CDM: COPD Spk with Pt she denies symptom changes or concerns, Pt denies needs or concerns. She and are going to [facility] in [place] 3 x week, to increase strength Contact made with patient: Yes Patient identified by name and . Discussed care with patient It s nice talking to you again. As a reminder, this is our bi-weekly check-in where I will be asking you questions about your health. This will only take a few minutes of your time. Is this a good time? Yes Symptoms What Chronic Disease(s) does the patient have: COPD Do you check your blood pressures at home? Yes, Enter readings: 141/70 Do you have new or worse shortness of breath with activity? No Do you have new or worsening cough? No Do you have new or worsening wheezing? No Do you need to use your rescue (Albuterol) inhaler or nebulizer more often than normal? No Are you having any other symptoms that your PCP needs to know about? No Symptoms: Symptom Escalation LUCY Education Ordered -: No The patient required an escalation for symptom(s)? No Medications Do you have any questions about taking your medication or which medications you should be on? No Do you need any medication refills at this time, including any of the medications you might take only when needed? No Social We would like to make sure you have what you need so that your basic needs are met- including your personal safety, food, housing, transportation and medications? Would you like to speak with a social work team psychologist to help give you support for any of these needs? No It can be normal to feel anxious or down during a time like this. Would you like to talk to a mental health professional about how you have been feeling? No Closing Thank you for taking the time to talk with me today. We want to work with you to ensure that we arekeeping your medical condition(s) well-controlled and to keep you healthy and out of the doctor's office or hospital. It s also not too late for me to sign you up for automated weekly questionnaires through [employer]. This is an easy way for us to stay connected each week. Are you interested? No, I understand. We can always sign you up in the future if you change your mind. Just as a reminder, will continue to call you every other week to check in on your health. Our calls should take 10-15 minutes or less. Remember, if you have concerns in between our calls, please call your PCP's office right away. Thank you. Enter next patient outreach date for two weeks on the same day of the week as today in the Track PtOutreach and End outreach. Janay Bond RN November 06, 2022 4:07 PM * Janay Bond RN - 11/04/2022 2:44 PM EDT LISBETH LOPEZ TELEPHONIC OUTREACH Provider Action/FYI: CDM: COPD Left a message to verify symptom status, instructed to call PCP with any changes in condition or needs. Contact made with patient: No - Left message Jaron my name is Janay Bond RN [facility] I am callingtoday for your bi-weekly check in. I am sorry I missed your call. I will reach out to you again tomorrow. (if the third call I will reach out to you again next week) Enter next patient outreach date for the following day using the Track Pt Outreach. End outreach. Janay Bond RN November 04, 2022 2:44 PM documented in this encounterWexner Medical Center03-10-2023 History of Present illness Narrative* Janay Bond RN - 11/01/2022 10:26 AM EST LISBETH LOPEZ TELEPHONIC OUTREACH Provider Action/FYI: CDM: COPD 2nd Call, left a message to verify symptom status, instructed to call PCP with any changes in condition or needs. Contact made with patient: No - Left message Jaron my name is Janay Bond RN your Emergency Department [facility] I am callingtoday for your bi-weekly check in. I am sorry I missed your call. I will reach out to you again tomorrow. (if the third call I will reach out to you again next week) Enter next patient outreach date for the following business day using the Track Pt Outreach. End outreach. Janay Bond RN November 01, 2022 10:26 AM documented in this encounterWexner [facility] Center03-07-2023 History of Present illness Narrative* Janay Bond RN - 10/29/2022 4:40 PM EST INSIGHT JESSICA TELEPHONIC OUTREACH Provider Action/FYI: CDM: COPD Left a message to verify symptom status, instructed to call PCP with any changes in condition or needs. Contact made with patient: No - Left message Hello my name is Janay Bond RN your Emergency Department [facility] I am callingtoday for your bi-weekly check in. I am sorry I missed your call. I will reach out to you again tomorrow. (if the third call I will reach out to you again next week) Enter next patient outreach date for the following business day using the Track Pt Outreach. End outreach. Janay Bond RN October 29, 2022 4:40 PM * Janay Bond RN - 10/25/2022 4:33 PM EST INSIGHT CDWade TELEPHONIC OUTREACH Provider Action/FYI: CDM: COPD Call to Pt to verify symptom status and needs, unable to leave a message, line busy. Contact made with patient: No - Unable to leave message Entered next patient outreach date for the following business day, if third call please enter next outreach date for one week in the Track Pt. Outreach - End Outreach Janay Bond RN October 25, 2022 4:33 PM documented in this encounterWexner Medical Center03-03-2023 Miscellaneous Notes* Telephone Encounter - Seema Taylor LPN - 10/25/2022 11:15 AM EST Patient has been identified by name and date of : Yes, Provider Dr. Castro Date 10/25/22 Time 11:15 am Pharmacy phones for refill(s): Requested Prescriptions Pending Prescriptions Disp Refills lisinopril (ZESTRIL, PRINIVIL) 20 mg tablet [Pharmacy Med Name: LISINOPRIL TABS 20MG] 90 tablet 3 Sig: TAKE 1 TABLET DAILY Date of last office visit in primary care: Last 2 Encounter Wt Readings: Date: Wt: 10/16/2022 67.1 kg (148 lb) 06/11/2022 69.9 kg (154 lb) Previous labs/tests for medication: Blood Pressure: BUN (mg/dL) Date Value 09/20/2021 19 Sodium (mmol/L) Date Value 09/20/2021 142 Last 1 Encounter BP Readings: Date: BP: 10/16/2022 156/88 Thank you. Seema Taylor LPN documented in this encounterWexner Medical Center02-24-2023 Miscellaneous Notes* Telephone Encounter - Da Castro MD - 10/18/2022 4:57 PM EST This was sorted out The rx was in their voice mail Regards, Da Castro MD * Telephone Encounter - Sylvie Soares RN - 10/18/2022 4:15 PM EST Tatyana with [facility] in [place] had called in asking about Paxlovid as Pt had called to see if provider had sent it in yet. Let her know provider had a VV with Pt but had not sent medication in yet. documented in this encounterWexner Medical Center02-24-2023 History of Present illness Narrative* Da Castro MD - 10/18/2022 1:49 PM EST Chief Complaint Patient presents with: Viral Syndrome HPI Jenni Strickland is a 82 year old female who is contacted today for a virtual/telemedicine visit. Thisis an established patient of Dr. Da Castro MD. States. Pt presents with cough, congestion, for 1 day. She has had a fever and chills as well. She has rib pain with cough. She had been to the urgent care and had got prednisone, tessalon perrles, and doxycycline. She is doing better with the medication But we offered the paxlovid and she said she would take the medication so it was called to her pharmacy. 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 Family History FAMILY HISTORY Problem Relation Age of Onset Colon Cancer Mother Colon Cancer Father other (colon polyps) Father Stroke Maternal Grandmother Colon Cancer Paternal Grandfather Breast Cancer Sister Cervical Cancer Sister COPD Daughter Heart Brother Coronary Artery Disease Sister fatal DC Coronary Artery Disease Brother fatal DC Diabetes Sister Stroke Sister Diabetes Son Patient Allergies ALLERGIES Allergen Reactions Robitussin A-C [Cod* Anaphylaxis Elastic Rash Gloves, Latex blisters Hctz [Thiazides] Intolerance Pins and needles sensation Penicillins Anaphylaxis Sulfa (Sulfonamide * Intolerance Wasps Other: See Comments swelling at sting site Zocor [Simvastatin] Intolerance muscle ache Current Medications Current Outpatient Medications on File Prior to Visit Medication Sig predniSONE (DELTASONE) 20 mg tablet Take 2 tablets by mouth once daily for 5 days. benzonatate (TESSALON PERLES) 100 mg capsule Take 2 capsules by mouth three times daily as needed. doxycycline (VIBRA-TABS) 100 mg tablet Take 1 tablet by mouth twice daily for 7 days. oxybutynin ER (DITROPAN XL) 10 mg 24 hr tablet Take 1 tablet by mouth once daily. polyethylene glycol 3350 (MIRALAX ORAL) Take by mouth. Lactobacillus acidophilus (FLORAJEN ACIDOPHILUS) 20 billion cell cap Take 460 mg by mouth once daily. amLODIPine (NORVASC) 2.5 mg tablet Take 1 tablet by mouth once daily. (Note change from 5mg 1/2 every day) famotidine (PEPCID) 20 mg tablet Take 1 tablet by mouth at bedtime as needed. furosemide (LASIX) 20 mg tablet Take 1 tablet by mouth once daily. Needs appointment for future refills albuterol HFA (PROVENTIL HFA, VENTOLIN HFA) 90 mcg/actuation inhaler Inhale 2 Puffs as instructed every 4 hours as needed for wheezing/shortness of breath. With spacer please. lisinopril (ZESTRIL, PRINIVIL) 20 mg tablet Take 1 tablet by mouth once daily. aclidinium bromide (TUDORZA PRESSAIR) 400 mcg/actuation aepb inhaler TWICE A DAY estradiol (ESTRACE) 0.01 % (0.1 mg/gram) vaginal cream Use 1 g vaginally one time a week. hydrOXYzine HCl (ATARAX) 25 mg tablet Take 1 tablet by mouth every 6 hours as needed. cyanocobalamin (VITAMIN B-12) 1,000 mcg tab Take 1 tablet by mouth once daily. BIOTIN ORAL Take by mouth. fluticasone (FLONASE) 50 mcg/actuation nasal spray Use 2 Sprays in each nostril once daily. esomeprazole (NEXIUM) 40 mg capsule twice daily before meals. (1) once daily. calcium carbonate ([id number])(TUMS 500 MG CHEWABLE TAB) PRN POTASSIUM GLUCONATE 595 MG (99 MG) TAB Take one(1) tablet daily. MAGNESIUM 250 MG TAB Take one(1) tablet daily. calcium carbonate/vitamin d3(CALCIUM 600 WITH VITAMIN D3 600 MG (1,500)-200 UNIT TAB) Take one(1) tablet twice daily. No current facility-administered medications on file prior to visit. Social History Social History Tobacco Use Smoking status: Never Smokeless tobacco: Never Substance Use Topics Alcohol use: No Drug use: No Review of Symptoms GENERAL: No weight loss. No malaise or fevers HEENT: Negative for headaches No eye discharge or redness No earaches or drainage No sore throat Nose POS/NEG for congestion and nasal discharge NECK: Negative for lumps, pain or significant neck swelling RESPIRATORY: No wheezing, SOB, Difficulty breathing. CARDIOVASCULAR: Negative for chest pain GI: No nausea, vomiting, or diarrhea MUSCULOSKELETAL: Negative for muscle aches or bodyaches SKIN: Negative for lesions, rash, and itching Neuro: No lightheadedness or dizziness Health Maintenance List DTAP,TDAP,TD(1 - Tdap) due on 08/23/2008 SHINGRIX VACCINE(2 of 3) due on 05/14/2011 COVID-19 VACCINE(4 - Booster for Moderna series) due on 02/03/2021 ADVANCE DIRECTIVE DISCUSSION due on 08/25/2022 DEPRESSION ASSESSMENT due on 08/25/2022 DIABETES SCREEN due on 05/04/2023 BONE DENSITY Completed SPIROMETRY Completed INFLUENZA Completed PNEUMOCOCCAL: 65+ Completed Data reviewed Last 5 Encounter BP Readings: Date: BP: 10/16/2022 156/88 06/11/2022 136/90 03/07/2022 114/80 02/20/2022 106/56 02/14/2022 142/88[pt declined[ BMI Readings from Last 5 Encounters: 10/16/22 : 27.07 kg/m 06/11/22 : 28.17 kg/m 03/07/22 : 27.03 kg/m 02/20/22 : 26.89 kg/m 01/29/22 : 26.89 kg/m Last 5 Encounter Wt Readings: Date: Wt: 10/16/2022 67.1 kg (148 lb) 06/11/2022 69.9 kg (154 lb) 03/07/2022 67 kg (147 lb 12.8 oz) 02/20/2022 66.7 kg (147 lb) 01/29/2022 66.7 kg (147 lb) Medication and allergy list reviewed, reconciled and updated 10/18/2022 ASSESSMENT/PLAN: 1. Viral illness - ICD9: 079.99, ICD10: B34.9 Shima called to [facility] in [place] , and I called the patient back and update her that it was called in Went over the side effect profile for the drug with the patient, mentioned every one of it , discussed appropriate concerns , alternatives and benefits of the drug, Spent 10 mins on the phone with the patient Da Castro MD documented in this encounterWexner Medical Center02-23-2023 Miscellaneous Notes* Telephone Encounter - Lanie Chery APRN.CNP - 10/17/2022 7:24 AM EST Patient identified by name and date of . Patient advised of positive COVID test result. She states her cough is improved. She is taking medication as prescribed at her Express Care visit. Discussed anti-viral medication. She has an appointment with Dr. Castro tomorrow and would like to discuss it with her at that time. Lanie Chery APRN.CNP documented in this encounterWexner Medical Center02-09-2023 History of Present illness Narrative* Janay Bond RN - 10/03/2022 2:07 PM EST INSIGHT CDM TELEPHONIC OUTREACH Provider Action/FYI: CDM: COPD Pt reported started working out with at [employer] 3x week, she is walkingone mile on the treadmill. Denies symptoms, concerns or needs Contact made with patient: Yes Patient identified by name and . Discussed care with patient It s nice talking to you again. As a reminder, this is our bi-weekly check-in where I will be asking you questions about your health. This will only take a few minutes of your time. Is this a good time? Yes Symptoms What Chronic Disease(s) does the patient have: COPD Do you check your blood pressures at home? Yes, Enter readings: 120/88 Do you have new or worse shortness of breath with activity? No Do you have new or worsening cough? No Do you have new or worsening wheezing? No Do you need to use your rescue (Albuterol) inhaler or nebulizer more often than normal? No Are you having any other symptoms that your PCP needs to know about? No Symptoms: Symptom Escalation LUCY Education Ordered -: No The patient required an escalation for symptom(s)? No Medications Do you have any questions about taking your medication or which medications you should be on? No Do you need any medication refills at this time, including any of the medications you might take only when needed? No Social We would like to make sure you have what you need so that your basic needs are met- including your personal safety, food, housing, transportation and medications? Would you like to speak with a social work team psychologist to help give you support for any of these needs? No It can be normal to feel anxious or down during a time like this. Would you like to talk to a mental health professional about how you have been feeling? No Closing Thank you for taking the time to talk with me today. We want to work with you to ensure that we arekeeping your medical condition(s) well-controlled and to keep you healthy and out of the doctor's office or hospital. It s also not too late for me to sign you up for automated weekly questionnaires through [employer]. This is an easy way for us to stay connected each week. Are you interested? No, I understand. We can always sign you up in the future if you change your mind. Just as a reminder, will continue to call you every other week to check in on your health. Our calls should take 10-15 minutes or less. Remember, if you have concerns in between our calls, please call your PCP's office right away. Thank you. Enter next patient outreach date for two weeks on the same day of the week as today in the Track PtOutreach and End outreach. Janay Bond RN October 03, 2022 2:07 PM documented in this encounterWexner Medical Center01-06-2023 History of Present illness Narrative* Janay Bond RN - 08/30/2022 4:28 PM EST INSIGHT CDM TELEPHONIC OUTREACH Provider Action/FYI: CDM : COPD Pt noted last week had sneezing and runny nose which resolved quickly. Pt notes has chronic mild Sob with exertion, denies current Sob, wheezing or coughing or other symptom or needs. has appt with Urology 09/17/22 to determine plan for Chemo or XRT Contact made with patient: Yes Patient identified by name and . Discussed care with patient It s nice talking to you again. As a reminder, this is our bi-weekly check-in where I will be asking you questions about your health. This will only take a few minutes of your time. Is this a good time? Yes Symptoms What Chronic Disease(s) does the patient have: COPD Do you check your blood pressures at home? Yes, Enter readings: Not avail Do you have new or worse shortness of breath with activity? Yes Do you have new or worsening cough? No Do you have new or worsening wheezing? No Do you need to use your rescue (Albuterol) inhaler or nebulizer more often than normal? No Are you having any other symptoms that your PCP needs to know about? No Symptoms: N/A Symptom Escalation LUCY Education Ordered -: No The patient required an escalation for symptom(s)? No Medications Do you have any questions about taking your medication or which medications you should be on? No Do you need any medication refills at this time, including any of the medications you might take only when needed? No Social We would like to make sure you have what you need so that your basic needs are met- including your personal safety, food, housing and medications? Would you like to speak with a social work team psychologist to help give you support for any of these needs? No It can be normal to feel anxious or down during a time like this. Would you like to talk to a mental health professional about how you have been feeling? No Closing Thank you for taking the time to talk with me today. We want to work with you to ensure that we arekeeping your medical condition(s) well-controlled and to keep you healthy and out of the doctor's office or hospital. It s also not too late for me to sign you up for automated weekly questionnaires through [employer]. This is an easy way for us to stay connected each week. Are you interested? No, I understand. We can always sign you up in the future if you change your mind. Just as a reminder, will continue to call you every other week to check in on your health. Our calls should take 10-15 minutes or less. Remember, if you have concerns in between our calls, please call your PCP's office right away. Thank you. Enter next patient outreach date for two weeks on the same day of the week as today in the Track PtOutreach and End outreach. Janay Bond RN August 30, 2022 4:28 PM documented in this encounterWexner Medical Center12-06-2022 History of Present illness Narrative* Janay Bond RN - 07/30/2022 12:51 PM EST INSIGHT CDM TELEPHONIC OUTREACH Provider Action/FYI: Spk with Pt she noted intermittent mild cough with occasional mucous, denies fever or chills, denies Sob or wheezing, or other symptoms. Pt noted she does not feel ill. 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 Contact made with patient: Yes Patient identified by name and . Discussed care with patient It s nice talking to you again. As a reminder, this is our bi-weekly check-in where I will be asking you questions about your health. This will only take a few minutes of your time. Is this a good time? Yes Symptoms What Chronic Disease(s) does the patient have: COPD Do you check your blood pressures at home? Yes, Enter readings: Not available Do you have new or worse shortness of breath with activity? No Do you have new or worsening cough? No Do you have new or worsening wheezing? No Do you need to use your rescue (Albuterol) inhaler or nebulizer more often than normal? No Are you having any other symptoms that your PCP needs to know about? No Symptom Escalation The patient required an escalation for symptom(s)? No Medications Do you have any questions about taking your medication or which medications you should be on? No Do you need any medication refills at this time, including any of the medications you might take only when needed? No Social We would like to make sure you have what you need so that your basic needs are met- including your personal safety, food, housing and medications? Would you like to speak with a social work team psychologist to help give you support for any of these needs? No It can be normal to feel anxious or down during a time like this. Would you like to talk to a mental health professional about how you have been feeling? No Closing Thank you for taking the time to talk with me today. We want to work with you to ensure that we arekeeping your medical condition(s) well-controlled and to keep you healthy and out of the doctor's office or hospital. It s also not too late for me to sign you up for automated weekly questionnaires through [employer]. This is an easy way for us to stay connected each week. Are you interested? No, I understand. We can always sign you up in the future if you change your mind. Just as a reminder, will continue to call you every other week to check in on your health. Our calls should take 10-15 minutes or less. Remember, if you have concerns in between our calls, please call your PCP's office right away. Thank you. Enter next patient outreach date for two weeks on the same day of the week as today in the Track PtOutreach and End outreach. Janay Bond RN July 30, 2022 12:51 PM documented in this encounterW[facility]11-[facility]22 History of Present illness Narrative* Varun Aguilar RN - 06/28/2022 1:04 PM EDT [facility] Provider Action/FYI: Pt noted unchanged chronic Sob with exertion, denies needs or concerns. is receiving Chemo and Radiation for an aggressive Prostate CA, Emotional support given. Contact made with patient: Yes Patient identified by name and . Discussed care with patient It s nice talking to you again. As a reminder, this is our bi-weekly check-in where I will be asking you questions about your health. This will only take a few minutes of your time. Is this a good time? Yes Symptoms What Chronic Disease(s) does the patient have: COPD Do you check your blood pressures at home? Yes, Enter readings: Not available Do you have new or worse shortness of breath with activity? No Do you have new or worsening cough? No Do you have new or worsening wheezing? No Do you need to use your rescue (Albuterol) inhaler or nebulizer more often than normal? No Are you having any other symptoms that your PCP needs to know about? No Symptom Escalation The patient required an escalation for symptom(s)? No Medications Do you have any questions about taking your medication or which medications you should be on? No Do you need any medication refills at this time, including any of the medications you might take only when needed? No Social We would like to make sure you have what you need so that your basic needs are met- including your personal safety, food, housing and medications? Would you like to speak with a social work team psychologist to help give you support for any of these needs? No It can be normal to feel anxious or down during a time like this. Would you like to talk to a mental health professional about how you have been feeling? No Closing Thank you for taking the time to talk with me today. We want to work with you to ensure that we arekeeping your medical condition(s) well-controlled and to keep you healthy and out of the doctor's office or hospital. It s also not too late for me to sign you up for automated weekly questionnaires through [employer]. This is an easy way for us to stay connected each week. Are you interested? No, I understand. We can always sign you up in the future if you change your mind. Just as a reminder, will continue to call you every other week to check in on your health. Our calls should take 10-15 minutes or less. Remember, if you have concerns in between our calls, please call your PCP's office right away. Thank you. Enter next patient outreach date for two weeks on the same day of the week as today in the Track PtOutreach and End outreach. Janay Bond RN June 28, 2022 1:04 PM * Varun Aguilar RN - 06/27/2022 4:10 PM EDT [facility] Provider Action/FYI: Call to Pt left a message to verify COPD symptom status, and needs. Contact made with patient: No - Left message Jaron my name is Janay Bond RN your Emergency Department [facility] I am callingtoday for your bi-weekly check in. I am sorry I missed your call. I will reach out to you again tomorrow. (if the third call I will reach out to you again next week) Enter next patient outreach date for the following business day using the Track Pt Outreach. End outreach. Janay Bond RN June 27, 2022 4:10 PM documented in this encounterWex[facility] Center10-26-2022 Miscellaneous Notes* Telephone Encounter - Umm Vazquez Ma - 06/19/2022 5:50 PM EDT Patient notified. * Telephone Encounter - Umm Vazquez Ma - 06/19/2022 5:49 PM EDT ----- Message from Da Castro MD sent at 06/18/2022 2:27 PM EDT ----- Urine was not consistent with urinary tract infection. Regards, Da Castro MD documented in this encounterWexner [facility] Center10-19-2022 Miscellaneous Notes* Telephone Encounter - Sylvie Soares RN - 06/12/2022 7:32 PM EDT Pt called and is notified of providers results and instructions. Pt voices understanding. Sylvie Soares RN * Telephone Encounter - Umm Vazquez Ma - 06/12/2022 7:31 PM EDT Tried calling patient, VM full. * Telephone Encounter - Mona Mancilla APRN.CNP - 06/12/2022 12:13 PM EDT Please let patient know the xray of her foot does not show any fracture. She needs to rest her foot, elevate as she is able, and use ice for any swelling or pain. We are still waiting on her urine culture results. Thank you Mona Mancilla APRN.REE documented in this encounterWexner [facility] Center10-18-2022 History of Present illness Narrative* Da Castro MD - 06/11/2022 9:24 AM EDT Reason for Visit Patient presents with: Recheck: 3 month Immunizations: Flu vaccination Jenni Strickland is a 82 year old female who presents here today for Above Complaints.. Health Maintenance DTAP,TDAP,TD(1 - Tdap) SHINGRIX VACCINE(2 of 3) COVID-19 VACCINE(4 - Booster for Moderna series) DEPRESSION ASSESSMENT INFLUENZA(1) HPI Her leg wound from mowing incident has finally healed but last night she dropped a can on her foot and and it is all black and blue today. Patient has noticed worsening bladder control in the past 6 months. We discussed keegels exercises and oxybutynin She is depressed about her husbands metastatic prostate cancer. No problem-specific Assessment & Plan notes found for this encounter. 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 FAMILY HISTORY Problem Relation Age of Onset Colon Cancer Mother Colon Cancer Father other (colon polyps) Father Stroke Maternal Grandmother Colon Cancer Paternal Grandfather Breast Cancer Sister Cervical Cancer Sister COPD Daughter Heart Brother Coronary Artery Disease Sister fatal DC Coronary Artery Disease Brother fatal DC Diabetes Sister Stroke Sister Diabetes Son Social History Tobacco Use Smoking status: Never Smokeless tobacco: Never Substance Use Topics Alcohol use: No Drug use: No Past medical history, appointments, medications, allergies reviewed. Pertinent Lab/Diagnostic Studies are reviewed and discussed today Current Outpatient Medications: polyethylene glycol 3350 (MIRALAX ORAL) Lactobacillus acidophilus (FLORAJEN ACIDOPHILUS) 20 billion cell cap amLODIPine (NORVASC) 2.5 mg tablet famotidine (PEPCID) 20 mg tablet furosemide (LASIX) 20 mg tablet albuterol HFA (PROVENTIL HFA, VENTOLIN HFA) 90 mcg/actuation inhaler lisinopril (ZESTRIL, PRINIVIL) 20 mg tablet aclidinium bromide (TUDORZA PRESSAIR) 400 mcg/actuation aepb inhaler hydrOXYzine HCl (ATARAX) 25 mg tablet cyanocobalamin (VITAMIN B-12) 1,000 mcg tab fluticasone (FLONASE) 50 mcg/actuation nasal spray esomeprazole (NEXIUM) 40 mg capsule calcium carbonate ([id number])(TUMS 500 MG CHEWABLE TAB) POTASSIUM GLUCONATE 595 MG (99 MG) TAB MAGNESIUM 250 MG TAB calcium carbonate/vitamin d3(CALCIUM 600 WITH VITAMIN D3 600 MG (1,500)-200 UNIT TAB) estradiol (ESTRACE) 0.01 % (0.1 mg/gram) vaginal cream BIOTIN ORAL Review of Systems CONSTITUTIONAL: No fevers, chills night sweats, unintended weight loss CARDIOVASCULAR: No chest pain, dyspnea, palpitations, orthopnea, PND, ankle edema. PULM: No dyspnea, unexplained cough. GI: No dysphagia/odynophagia, problematic reflux, constipation, diarrhea, changes in stool habits, hematochezia, melena. : No new urinary complaints, including dysuria, gross hematuria or pyuria. NEURO: No new balance problems, peripheral weakness/paresthesias or numbness of concern. Physical Exam BP 136/90 Pulse 75 Temp 36.9 C (98.4 F) Resp 16 Wt 69.9 kg (154 lb) SpO2 97% BMI 28.17 kg/m General appearance: Well appearing, alert, in no acute distress, well nourished. Skin: Skin color, texture, turgor normal, no suspicious rashes or lesions Head: Normocephalic, no masses, lesions, tenderness or abnormalities Eyes: Anicteric sclera. Pupils are equally round and reactive to light. Extraocular movements are intact. Lungs: Lungs clear to auscultation. No wheezing, rhonchi, rales Heart: RRR without murmur, gallop, or rubs. Extremities: The left big toe is not moving and it is black and contused ASSESSMENT/PLAN: 1. Injury of left foot, sequela - ICD9: 908.9, ICD10: S99.922S (primary diagnosis) - XR FOOT GENERAL 3V AP/LAT/OBL LEFT 2. Need for influenza vaccination - ICD9: V04.81, ICD10: Z23 - INFLUENZA SEASONAL QUADRIVALENT HIGH DOSE AGE 65+ 3. Urinary incontinence, unspecified type - ICD9: 788.30, ICD10: R32 Have her oxybutynin to help her with the incontinence if she does not have uti. Went over the side effect profile for the drug with the patient, mentioned every one of it , discussed appropriate concerns , alternatives and benefits of the drug, - URINALYSIS, WITH MICROSCOPIC - URINE CULTURE Da Castro MD documented in this encounterW[facility] Center10-14-2022 History of Present illness Narrative* Varun Aguilar RN - 06/07/2022 12:27 PM EDT [facility] Provider Action/FYI: Called Pt left a message to verify COPD or other symptoms or needs. Contact made with patient: No - Left message Jaron my name is Janay Bond RN your Emergency Department [facility] I am callingtoday for your bi-weekly check in. I am sorry I missed your call. I will reach out to you again tomorrow. (if the third call I will reach out to you again next week) Enter next patient outreach date for the following day using the Track Pt Outreach. End outreach. Janay Bond RN June 07, 2022 12:27 PM documented in this encounterWex[facility] Center09-23-2022 History of Present illness Narrative* Varun Aguilar RN - 05/17/2022 3:06 PM EDT [facility] TELEPHON[facility] OUTREACH Provider Action/FYI: Spk with Pt she denies worsening COPD or other symptoms or needs. Contact made with patient: Yes Patient identified by name and . Discussed care with patient It s nice talking to you again. As a reminder, this is our bi-weekly check-in where I will be asking you questions about your health. This will only take a few minutes of your time. Is this a good time? Yes Symptoms What Chronic Disease(s) does the patient have: COPD Do you check your blood pressures at home? Yes, Enter readings: Not available Do you have new or worse shortness of breath with activity? No Do you have new or worsening cough? No Do you have new or worsening wheezing? No Do you need to use your rescue (Albuterol) inhaler or nebulizer more often than normal? No Are you having any other symptoms that your PCP needs to know about? No Symptom Escalation The patient required an escalation for symptom(s)? No Medications Do you have any questions about taking your medication or which medications you should be on? No Do you need any medication refills at this time, including any of the medications you might take only when needed? No Social We would like to make sure you have what you need so that your basic needs are met- including your personal safety, food, housing and medications? Would you like to speak with a social work team psychologist to help give you support for any of these needs? No It can be normal to feel anxious or down during a time like this. Would you like to talk to a mental health professional about how you have been feeling? No Closing Thank you for taking the time to talk with me today. We want to work with you to ensure that we arekeeping your medical condition(s) well-controlled and to keep you healthy and out of the doctor's office or hospital. It s also not too late for me to sign you up for automated weekly questionnaires through [employer]. This is an easy way for us to stay connected each week. Are you interested? No, I understand. We can always sign you up in the future if you change your mind. Just as a reminder, will continue to call you every other week to check in on your health. Our calls should take 10-15 minutes or less. Remember, if you have concerns in between our calls, please call your PCP's office right away. Thank you. Enter next patient outreach date for two weeks on the same day of the week as today in the Track PtOutreach and End outreach. Janay Bond RN May 17, 2022 3:06 PM documented in this encounterWexner Medical Center08-23-2022 History of Present illness Narrative* Varun Aguilar RN - 04/16/2022 3:53 PM EDT [facility]RE[facility] Provider Action/FYI: Spk with Pt, she noted will be having a Gastric emptying study at [facility] by Dr. Eric LOVELL. Pt denies new or worsening COPD symptoms or needs.. Contact made with patient: Yes Patient identified by name and . Discussed care with patient It s nice talking to you again. As a reminder, this is our bi-weekly check-in where I will be asking you questions about your health. This will only take a few minutes of your time. Is this a good time? Yes Symptoms What Chronic Disease(s) does the patient have: COPD Do you check your blood pressures at home? Yes, Enter readings: Not available Do you have new or worse shortness of breath with activity? No Do you have new or worsening cough? No Do you have new or worsening wheezing? No Do you need to use your rescue (Albuterol) inhaler or nebulizer more often than normal? No Are you having any other symptoms that your PCP needs to know about? No Symptom Escalation The patient required an escalation for symptom(s)? No Medications Do you have any questions about taking your medication or which medications you should be on? No Do you need any medication refills at this time, including any of the medications you might take only when needed? No Social We would like to make sure you have what you need so that your basic needs are met- including your personal safety, food, housing and medications? Would you like to speak with a social work team psychologist to help give you support for any of these needs? No It can be normal to feel anxious or down during a time like this. Would you like to talk to a mental health professional about how you have been feeling? No Closing Thank you for taking the time to talk with me today. We want to work with you to ensure that we arekeeping your medical condition(s) well-controlled and to keep you healthy and out of the doctor's office or hospital. It s also not too late for me to sign you up for automated weekly questionnaires through [employer]. This is an easy way for us to stay connected each week. Are you interested? No, I understand. We can always sign you up in the future if you change your mind. Just as a reminder, will continue to call you every other week to check in on your health. Our calls should take 10-15 minutes or less. Remember, if you have concerns in between our calls, please call your PCP's office right away. Thank you. Enter next patient outreach date for two weeks on the same day of the week as today in the Track PtOutreach and End outreach. Janay Bond RN April 16, 2022 3:53 PM * Varun Aguilar RN - 04/15/2022 3:09 PM EDT [facility] TELEPHONIC OUTREACH Provider Action/FYI: Left a message to verify COPD or other symptoms or needs. Contact made with patient: No - Left message Jaron my name is Janay Bond RN your Emergency Department [facility] I am callingtoday for your bi-weekly check in. I am sorry I missed your call. I will reach out to you again tomorrow. (if the third call I will reach out to you again next week) Enter next patient outreach date for the following day using the Track Pt Outreach. End outreach. aJnay Bond RN April 15, 2022 3:09 PM documented in this encounterWexner Medical Center08-05-2022 History of Present illness Narrative* Varun Aguilar RN - 03/29/2022 1:36 PM EDT [facility] TELEPHONIC OUTREACH Provider Action/FYI: Spk with Pt she noted no new or worsening COPD symptoms or needs, Pt noted she recently underwent an UGI awaiting results. Pt noted her has prostate CA and has started Chemo, and Hormone treatment Contact made with patient: Yes Patient identified by name and . Discussed care with patient It s nice talking to you again. As a reminder, this is our bi-weekly check-in where I will be asking you questions about your health. This will only take a few minutes of your time. Is this a good time? Yes Symptoms What Chronic Disease(s) does the patient have: COPD Do you check your blood pressures at home? Yes, Enter readings: Not Available Do you have new or worse shortness of breath with activity? No Do you have new or worsening cough? No Do you have new or worsening wheezing? No Do you need to use your rescue (Albuterol) inhaler or nebulizer more often than normal? No Are you having any other symptoms that your PCP needs to know about? No Symptom Escalation The patient required an escalation for symptom(s)? No Medications Do you have any questions about taking your medication or which medications you should be on? No Do you need any medication refills at this time, including any of the medications you might take only when needed? No Social We would like to make sure you have what you need so that your basic needs are met- including your personal safety, food, housing and medications? Would you like to speak with a social work team psychologist to help give you support for any of these needs? No It can be normal to feel anxious or down during a time like this. Would you like to talk to a mental health professional about how you have been feeling? No Closing Thank you for taking the time to talk with me today. We want to work with you to ensure that we arekeeping your medical condition(s) well-controlled and to keep you healthy and out of the doctor's office or hospital. It s also not too late for me to sign you up for automated weekly questionnaires through [employer]. This is an easy way for us to stay connected each week. Are you interested? No, I understand. We can always sign you up in the future if you change your mind. Just as a reminder, will continue to call you every other week to check in on your health. Our calls should take 10-15 minutes or less. Remember, if you have concerns in between our calls, please call your PCP's office right away. Thank you. Enter next patient outreach date for two weeks on the same day of the week as today in the Track PtOutreach and End outreach. Janay Bond RN March 29, 2022 1:36 PM documented in this encounterWexner Medical Center07-21-2022 History of Present illness Narrative* Varun Aguilar RN - 03/14/2022 10:43 AM EDT [facility] TELEPHONIC OUTREACH Provider Action/FYI: Call to Pt left a message to verify COPD symptom status or needs. Contact made with patient: No - Left message Jaron my name is Janay Bond RN your Emergency Department from the [facility] I am callingtoday for your bi-weekly check in. I am sorry I missed your call. I will reach out to you again tomorrow. (if the third call I will reach out to you again next week) Enter next patient outreach date for the following business day using the Track Pt Outreach. End outreach. Janay Bond RN March 14, 2022 10:43 AM documented in this encounterWexner Medical Center07-14-2022 History of Present illness Narrative* Da Castro MD - 03/07/2022 12:24 PM EDT Reason for Visit Patient presents with: Recheck: 2 week f/u - dizziness Jenni Strickland is a 82 year old female who presents here today for Above Complaints.. Health Maintenance DTAP,TDAP,TD(1 - Tdap) SHINGRIX VACCINE(2 of 3) COVID-19 VACCINE(4 - Booster for Moderna series) HPI Her blood pressure is wonderful today. Takes her blood pressure medication regularly. Patient notes she just wants to Keep the systolic down. Her wound is looking good today, the base is scabbed, there is no opening and no signs of infection She took 2 rounds of abx. And today it doesn't look infection. Patient notes she feels much better than she did a couple weeks ago. No problem-specific Assessment & Plan notes found for this encounter. 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 Pertinent Lab/Diagnostic Studies are reviewed and discussed today Current Outpatient Medications: polyethylene glycol 3350 (MIRALAX ORAL) Lactobacillus acidophilus (FLORAJEN ACIDOPHILUS) 20 billion cell cap amLODIPine (NORVASC) 2.5 mg tablet famotidine (PEPCID) 20 mg tablet furosemide (LASIX) 20 mg tablet albuterol HFA (PROVENTIL HFA, VENTOLIN HFA) 90 mcg/actuation inhaler lisinopril (ZESTRIL, PRINIVIL) 20 mg tablet aclidinium bromide (TUDORZA PRESSAIR) 400 mcg/actuation aepb inhaler hydrOXYzine HCl (ATARAX) 25 mg tablet cyanocobalamin (VITAMIN B-12) 1,000 mcg tab fluticasone (FLONASE) 50 mcg/actuation nasal spray esomeprazole (NEXIUM) 40 mg capsule calcium carbonate ([id number])(TUMS 500 MG CHEWABLE TAB) POTASSIUM GLUCONATE 595 MG (99 MG) TAB MAGNESIUM 250 MG TAB calcium carbonate/vitamin d3(CALCIUM 600 WITH VITAMIN D3 600 MG (1,500)-200 UNIT TAB) estradiol (ESTRACE) 0.01 % (0.1 mg/gram) vaginal cream BIOTIN ORAL Review of Systems CONSTITUTIONAL: No fevers, chills night sweats, unintended weight loss CARDIOVASCULAR: No chest pain, dyspnea, palpitations, orthopnea, PND, ankle edema. PULM: No dyspnea, unexplained cough. GI: No dysphagia/odynophagia, problematic reflux, constipation, diarrhea, changes in stool habits, hematochezia, melena. : No new urinary complaints, including dysuria, gross hematuria or pyuria. NEURO: No new balance problems, peripheral weakness/paresthesias or numbness of concern. Physical Exam BP 114/80 (BP Site: Left Arm, BP Position: Sitting, BP Cuff Size: Regular Adult) Pulse 76 Wt 67kg (147 lb 12.8 oz) SpO2 95% BMI 27.03 kg/m General appearance: Well appearing, alert, in no acute distress, well nourished. Skin: Skin color, texture, turgor normal, no suspicious rashes or lesions Head: Normocephalic, no masses, lesions, tenderness or abnormalities Eyes: Anicteric sclera. Pupils are equally round and reactive to light. Extraocular movements are intact. Extremity: the left trotter has a square sized, scab, which shows good healing, a little redness around appropriate for healing. ASSESSMENT/PLAN: 1. Stab wound of trotter - ICD9: 891.0, ICD10: S81.819A (primary diagnosis) Its not really a stab wound. Healing well not need for abx, no signs of infection 2. Essential hypertension - ICD9: 401.9, ICD10: I10 - good control - Recommended regular aerobic exercise. - Recommend home blood pressure monitoring, to bring results in on next visit - Goal of BP <130/80 Da Castro MD documented [facility] History of Present illness Narrative* Da Castro MD - 02/20/2022 12:39 PM EDT Reason for Visit Patient presents with: Established Patient: wound check on left lower leg, and c/o dizziness this AM Jenni Strickland is a 82 year old female who presents here today for Above Complaints.. Health Maintenance DTAP,TDAP,TD(1 - Tdap) SHINGRIX VACCINE(2 of 3) COVID-19 VACCINE(4 - Booster for Moderna series) HPI While doing yard work she had an injury from the edging machine, she has been taking care of the wound, but when she last came to see me, it had been very painful and throbbing so we gave her doxycycline for 7 days and it got better for a bit but not fully, after stopping the medication she did developed redness and pus which progressively got worse so came to urgent care who gave her clindamycin, today is day 6 and the wound is looking much better. There is some slough but and she was asked to stop the tripple anbx ointment she was using there to be stopped and to only use vaseline, which she has been doing. No problem-specific Assessment & Plan notes found for this encounter. 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 Pertinent Lab/Diagnostic Studies are reviewed and discussed today Current Outpatient Medications: polyethylene glycol 3350 (MIRALAX ORAL) clindamycin (CLEOCIN) 150 mg capsule Lactobacillus acidophilus (FLORAJEN ACIDOPHILUS) 20 billion cell cap amLODIPine (NORVASC) 2.5 mg tablet famotidine (PEPCID) 20 mg tablet furosemide (LASIX) 20 mg tablet albuterol HFA (PROVENTIL HFA, VENTOLIN HFA) 90 mcg/actuation inhaler lisinopril (ZESTRIL, PRINIVIL) 20 mg tablet aclidinium bromide (TUDORZA PRESSAIR) 400 mcg/actuation aepb inhaler estradiol (ESTRACE) 0.01 % (0.1 mg/gram) vaginal cream hydrOXYzine HCl (ATARAX) 25 mg tablet cyanocobalamin (VITAMIN B-12) 1,000 mcg tab BIOTIN ORAL fluticasone (FLONASE) 50 mcg/actuation nasal spray esomeprazole (NEXIUM) 40 mg capsule calcium carbonate ([id number])(TUMS 500 MG CHEWABLE TAB) POTASSIUM GLUCONATE 595 MG (99 MG) TAB MAGNESIUM 250 MG TAB calcium carbonate/vitamin d3(CALCIUM 600 WITH VITAMIN D3 600 MG (1,500)-200 UNIT TAB) Review of Systems CONSTITUTIONAL: No fevers, chills night sweats, unintended weight loss CARDIOVASCULAR: No chest pain, dyspnea, palpitations, orthopnea, PND, ankle edema. PULM: No dyspnea, unexplained cough. GI: No dysphagia/odynophagia, problematic reflux, constipation, diarrhea, changes in stool habits, hematochezia, melena. : No new urinary complaints, including dysuria, gross hematuria or pyuria. NEURO: No new balance problems, peripheral weakness/paresthesias or numbness of concern. Physical Exam BP 106/56 (BP Site: Left Arm, BP Position: Sitting, BP Cuff Size: Large Adult) Pulse 70 Temp 36.4 C (97.6 F) Resp 12 Ht 157.5 cm (5' 2) Wt 66.7 kg (147 lb) SpO2 99% BMI 26.89 kg/m General appearance: Well appearing, alert, in no acute distress, well nourished. Skin: Skin color, texture, turgor normal, no suspicious rashes or lesions Head: Normocephalic, no masses, lesions, tenderness or abnormalities Eyes: Anicteric sclera. Pupils are equally round and reactive to light. Extraocular movements are intact. LLE: she has 2 superficial ulcers on the trotter there is some slough present, but edges are clean andno streaking although some redness is present indicating healing. ASSESSMENT/PLAN: 1. Wound of left lower extremity, subsequent encounter - ICD9: V58.89, 894.0, ICD10: S81.802D (primary diagnosis) Complete abx and call back if any increase in redness or streaking, may need debridement 2. Essential hypertension - ICD9: 401.9, ICD10: I10 - good control - Recommended regular aerobic exercise. - Recommend home blood pressure monitoring, to bring results in on next visit - Goal of BP <130/80 Da Castro MD documented in this encounterW[facility]06-[facility]22 History of Present illness Narrative* Vraun Aguilar RN - 02/08/2022 11:22 AM EDT INSIGHT CDM TELEPHONIC OUTREACH Provider Action/FYI: Call to Pt left a Message to verify new or worsening COPD or other symptoms or needs. Contact made with patient: No - Left message Hello my name is Janay Bond RN [facility] I am callingtoday for your bi-weekly check in. I am sorry I missed your call. I will reach out to you again tomorrow. (if the third call I will reach out to you again next week) Enter next patient outreach date for the following business day using the Track Pt Outreach. End outreach. Janay Bond RN February 08, 2022 11:22 AM documented in this encounterW[facility]06-09-2022 Miscellaneous Notes* Telephone Encounter - Umm Vazquez Ma - 01/31/2022 3:31 PM EDT Patient notified. * Telephone Encounter - Umm Vazquez Ma - 01/31/2022 3:30 PM EDT ----- Message from Da Castro MD sent at 01/31/2022 2:30 PM EDT ----- Spirometry was normal documented in this encounterWex[facility]06-07-2022 History of Present illness Narrative* ABDIAZIZ Corona - 01/29/2022 9:16 AM EDT PULM FUNCTION SMARTBLOCK: Provider: Da Castro MD Assisting Tech: ABDIAZIZ Corona Spirometry w/BD: 1 System: [id number] documented in this encounterW[facility]06-01-2022 History of Present illness Narrative* Da Castro MD - 01/23/2022 8:26 AM EDT Welcome To Medicare Visit Medical B eligibility date age 64 Date of last exam none in the past year PAST MEDICAL HISTORY Diagnosis Date Atopic dermatitis 06/09/2018 COPD (chronic obstructive pulmonary disease) (HCC) 04/03/2015 Diaphragmatic hernia without mention of obstruction or gangrene Disorder of bone and cartilage, unspecified Diverticulitis of colon (without mention of hemorrhage)(562.11) Dyspnea on exertion 10/21/2017 chronic Esophagitis, unspecified Essential hypertension 11/13/2015 Milia 06/09/2018 Pigmented purpura (HCC) 06/09/2018 Psoriasis Urticaria PAST SURGICAL HISTORY Procedure Laterality Date AFTER CATARACT LASER SURGERY bilateral CHEST TUBE - INSERT 1984 trauma from bull, rib fractures, on vent. 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 right little toe amputated Robitussin A-C [Codeine-Guaifenesin]; Elastic; Gloves, Latex; Hctz [Thiazides]; Penicillins; Sulfa (Sulfonamide Antibiotics); Wasps; and Zocor [Simvastatin] Medications reviewed: Yes FAMILY HISTORY Problem Relation Age of Onset Colon Cancer Mother Colon Cancer Father other (colon polyps) Father Stroke Maternal Grandmother Colon Cancer Paternal Grandfather Breast Cancer Sister Cervical Cancer Sister COPD Daughter Heart Brother Coronary Artery Disease Sister fatal DC Coronary Artery Disease Brother fatal DC Diabetes Sister Stroke Sister Diabetes Son SOCIAL HISTORY: Social History Tobacco Use Smoking status: Never Smoker Smokeless tobacco: Never Used Substance Use Topics Alcohol use: No Drug use: No Jenni likes to exercise by walking and lots of yard work, gardening. She watches her diet for sodium, low fat and low cholesterol most of the time. List of current specialists seen: none in the past year. End of Live Planning discussed including patients advanced directive wishes: Yes I am willing to follow Jenni's advanced directives. PHQ-2 / Depression screen She in the past two weeks denies having felt down, depressed, hopeless or with little interest or pleasure in doing things. Functional Ability/Safety Screen 1. Was the patient's timed Up and Go test unsteady or longer than 30 seconds? No 2. Does the patient need help with the phone, transportation, shopping,preparing meals, housework, laundry, medications or managing money? No 3. Does your home have rugs in the hallway, lack of grab bars in the bathroom, lack of handrails onthe stairs or have poor lighting? No Hearing Evaluation: normal PHYSICAL EXAM BP 130/70 (BP Site: Left Arm, BP Position: Sitting, BP Cuff Size: Large Adult) Pulse 75 Temp 36.6 C (97.8 F) Resp 12 Ht 157.5 cm (5' 2) Wt 66.7 kg (147 lb) SpO2 100% BMI 26.89 kg/m Alert and oriented X 3: YES Body mass index is 26.89 kg/m . ASSESSMENT/PLAN: 82 year old female The following prevention plan was discussed during the office visit and provided to the patient: - Glaucoma screening - Lipid panel Da Castro MD Reason for Visit Patient presents with: Established Patient: medicare wellness- left lower leg injury from weed eater Jenni Strickland is a 82 year old female who presents here today for Above Complaints. Health Maintenance SPIROMETRY DTAP,TDAP,TD(1 - Tdap) SHINGRIX VACCINE(2 of 3) COVID-19 VACCINE(4 - Booster for Moderna series) ADVANCE DIRECTIVE DISCUSSION HPI Reviewed her labs from 4 months ago, bmp was normal HTN: Compliant with medications. Denies any chest pain, palpitations, or edema. No SOB. Doesn't check BP at home generally. Careful with diet to avoid salt, trying to eat more fruits and vegetables, exercises regularly. Had covid in July. 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 She was not admitted in the hospital with thesesymptoms. Seen Dr Reyes who helped with the gi issues she had, she was found to have a hiatal hernia. Following up with Dr reyes for it. She is back to doing basically everything she did before. Needs a spirometry for monitoring her copd. While doing yard work she had an injury from the edging machine, she has been taking care of the wound, it has been very painful and throbbing a lot. No problem-specific Assessment & Plan notes found for this encounter. 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 Pertinent Lab/Diagnostic Studies are reviewed and discussed today Current Outpatient Medications: amLODIPine (NORVASC) 2.5 mg tablet famotidine (PEPCID) 20 mg tablet furosemide (LASIX) 20 mg tablet albuterol HFA (PROVENTIL HFA, VENTOLIN HFA) 90 mcg/actuation inhaler lisinopril (ZESTRIL, PRINIVIL) 20 mg tablet aclidinium bromide (TUDORZA PRESSAIR) 400 mcg/actuation aepb inhaler estradiol (ESTRACE) 0.01 % (0.1 mg/gram) vaginal cream hydrOXYzine HCl (ATARAX) 25 mg tablet cyanocobalamin (VITAMIN B-12) 1,000 mcg tab BIOTIN ORAL fluticasone (FLONASE) 50 mcg/actuation nasal spray esomeprazole (NEXIUM) 40 mg capsule calcium carbonate ([id number])(TUMS 500 MG CHEWABLE TAB) POTASSIUM GLUCONATE 595 MG (99 MG) TAB MAGNESIUM 250 MG TAB calcium carbonate/vitamin d3(CALCIUM 600 WITH VITAMIN D3 600 MG (1,500)-200 UNIT TAB) Review of Systems CONSTITUTIONAL: No fevers, chills night sweats, unintended weight loss CARDIOVASCULAR: No chest pain, dyspnea, palpitations, orthopnea, PND, ankle edema. PULM: No dyspnea, unexplained cough. GI: No dysphagia/odynophagia, problematic reflux, constipation, diarrhea, changes in stool habits, hematochezia, melena. : No new urinary complaints, including dysuria, gross hematuria or pyuria. NEURO: No new balance problems, peripheral weakness/paresthesias or numbness of concern. Physical Exam BP 130/70 (BP Site: Left Arm, BP Position: Sitting, BP Cuff Size: Large Adult) Pulse 75 Temp 36.6 C (97.8 F) Resp 12 Ht 157.5 cm (5' 2) Wt 66.7 kg (147 lb) SpO2 100% BMI 26.89 kg/m General appearance: Well appearing, alert, in no acute distress, well nourished. Skin: Skin color, texture, turgor normal, no suspicious rashes or lesions Head: Normocephalic, no masses, lesions, tenderness or abnormalities Eyes: Anicteric sclera. Pupils are equally round and reactive to light. Extraocular movements are intact. Lungs: Lungs clear to auscultation. No wheezing, rhonchi, rales Heart: RRR without murmur, gallop, or rubs. Extremities: left trotter has a ragged wound around 3 cms, with redness around it , limited redness but extremely tender and throbbing. ASSESSMENT/PLAN: 1. Medicare annual wellness visit, subsequent - ICD9: V70.0, ICD10: Z00.00 (primary diagnosis) - Counseled on healthy diet and regular exercise - Calcium intake with supplements or by diet of 1000 mg/day for under 50, 1200- 1500 mg/day for 50+ 2. Uncontrolled stage 2 hypertension - ICD9: 401.9, ICD10: I10 - good control - Recommended regular aerobic exercise. - Recommend home blood pressure monitoring, to bring results in on next visit - Goal of BP <130/80 3. Chronic obstructive pulmonary disease, unspecified COPD type (HCC) - ICD9: 496, ICD10: J44.9 - SPIROMETRY - BASELINE AND POST DILATOR 4. Encounter for immunization - ICD9: V03.89, ICD10: Z23 - [employer] COVID-19 VACCINE, AGE 12+ YR ([facility]) 5. Essential hypertension - ICD9: 401.9, ICD10: I10 - good control - Recommended regular aerobic exercise. - Recommend home blood pressure monitoring, to bring results in on next visit - Goal of BP <130/80 6. Cellulitis of left lower extremity - ICD9: 682.6, ICD10: L03.116 - Begin treatment with sondra Castro MD documented in this encounterW[facility]06-01-2022 Nurse Note* Gila Dumont LPN - 01/23/2022 8:12 AM EDT last eye exam December 2021 seen by documented in this encounterWex[facility] Center05-18-2022 History of Present illness Narrative* Varun Aguilar RN - 01/09/2022 8:43 AM EDT INSIGHT CDM TELEPHONIC OUTREACH Provider Action/FYI: Spk with Pt she denies new or worsening COPD or other symptoms Had a fall/ stumble without injury, denies ambulatory DME Contact made with patient: Yes Patient identified by name and . Discussed care with patient It s nice talking to you again. As a reminder, this is our bi-weekly check-in where I will be asking you questions about your health. This will only take a few minutes of your time. Is this a good time? Yes Symptoms What Chronic Disease(s) does the patient have: COPD Do you check your blood pressures at home? No Do you have new or worse shortness of breath with activity? No Do you have new or worsening cough? No Do you have new or worsening wheezing? No Do you need to use your rescue (Albuterol) inhaler or nebulizer more often than normal? No Are you having any other symptoms that your PCP needs to know about? No Symptom Escalation The patient required an escalation for symptom(s)? No Medications Do you have any questions about taking your medication or which medications you should be on? No Do you need any medication refills at this time, including any of the medications you might take only when needed? No Social We would like to make sure you have what you need so that your basic needs are met- including your personal safety, food, housing and medications? Would you like to speak with a social work team psychologist to help give you support for any of these needs? No It can be normal to feel anxious or down during a time like this. Would you like to talk to a mental health professional about how you have been feeling? No Closing Thank you for taking the time to talk with me today. We want to work with you to ensure that we arekeeping your medical condition(s) well-controlled and to keep you healthy and out of the doctor's office or hospital. It s also not too late for me to sign you up for automated weekly questionnaires through [employer]. This is an easy way for us to stay connected each week. Are you interested? No, I understand. We can always sign you up in the future if you change your mind. Just as a reminder, will continue to call you every other week to check in on your health. Our calls should take 10-15 minutes or less. Remember, if you have concerns in between our calls, please call your PCP's office right away. Thank you. Enter next patient outreach date for two weeks on the same day of the week as today in the Track PtOutreach and End outreach. Janay Bond RN January 09, 2022 9:03 AM documented in this encounterWex[facility] Center05-06-2022 History of Present illness Narrative* Varun Aguilar RN - 12/28/2021 10:47 AM EDT INSIGHT CDM TELEPHONIC OUTREACH Provider Action/FYI: Call to Pt left a message to verify COPD symptom status and needs. Contact made with patient: No - Left message Jaron my name is Janay Bond RN your Emergency Department [facility] I am calling today for your bi-weekly check in. I am sorry I missed your call. I will reach out to you again tomorrow. (if the third call I will reach out to you again next week) Enter next patient outreach date forthe following using the Track Pt Outreach. End outreach. Janay Bond RN December 28, 2021 10:47 AM documented in this encounterWexner [facility] Center04-21-2022 History of Present illness Narrative* Varun Aguilar RN - 12/13/2021 10:56 AM EDT INSIGHT CDM TELEPHONIC OUTREACH Provider Action/FYI: Spk with Pt who denies new or worsening COPD symptoms Left hand healed completely without scaring, Pt denies needs or concerns Contact made with patient: Yes Patient identified by name and . Discussed care with patient It s nice talking to you again. As a reminder, this is our bi-weekly check-in where I will be asking you questions about your health. This will only take a few minutes of your time. Is this a good time? Yes Symptoms What Chronic Disease(s) does the patient have: COPD Do you check your blood pressures at home? No Do you have new or worse shortness of breath with activity? No Do you have new or worsening cough? No Do you have new or worsening wheezing? No Do you need to use your rescue (Albuterol) inhaler or nebulizer more often than normal? No Are you having any other symptoms that your PCP needs to know about? No Symptom Escalation The patient required an escalation for symptom(s)? No Medications Do you have any questions about taking your medication or which medications you should be on? No Do you need any medication refills at this time, including any of the medications you might take only when needed? No Social We would like to make sure you have what you need so that your basic needs are met- including your personal safety, food, housing and medications? Would you like to speak with a social work team psychologist to help give you support for any of these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 is getting some cramps in the hands and legs. She started putting liniments in it on and off. She was checked for the leg cramps with all electrolytes and it was normal Tingling in extremities 04/03/2015 12/10/19 Last Assessment & Plan: Going on almost everyday in the legs and the feet for 8 months,. It is getting worse over the years. Nothing makes the tingling go away, liniment and resting helps so bit. Not diabetic. Closed fracture of metatarsal bone(s) 03/12/2011 12/09/2018 Esophagitis, unspecified 019 Acute gastritis 12/09/2018 Disorder of bone and cartilage, unspecified 12/09/2018 documented as of this encounter (statuses as of 08/31/2022) [facility]2015 History of Past illness Narrative* Problem Noted Date Resolved Date Leg cramps 04/03/2015 12/09/2018 Last Assessment & Plan: She still continues with the leg cramps. She is getting some cramps in the hands and legs. She started putting liniments in it on and off. She was checked for the leg cramps with all electrolytes and it was normal Tingling in extremities 04/03/2015 12/10/19 Last Assessment & Plan: Going on almost everyday in the legs and the feet for 8 months,. It is getting worse over the years. Nothing makes the tingling go away, liniment and resting helps so bit. Not diabetic. Closed fracture of metatarsal bone(s) 03/12/2011 12/09/2018 Esophagitis, unspecified 019 Acute gastritis 12/09/2018 Disorder of bone and cartilage, unspecified 12/09/2018 documented as of this encounter (statuses as of 10/03/2022) [facility]2015 History of Past illness Narrative* Problem Noted Date Resolved Date Leg cramps 04/03/2015 12/09/2018 Last Assessment & Plan: She still continues with the leg cramps. She is getting some cramps in the hands and legs. She started putting liniments in it on and off. She was checked for the leg cramps with all electrolytes and it was normal Tingling in extremities 04/03/2015 12/10/19 Last Assessment & Plan: Going on almost everyday in the legs and the feet for 8 months,. It is getting worse over the years. Nothing makes the tingling go away, liniment and resting helps so bit. Not diabetic. Closed fracture of metatarsal bone(s) 03/12/2011 12/09/2018 Esophagitis, unspecified 019 Acute gastritis 12/09/2018 Disorder of bone and cartilage, unspecified 12/09/2018 documented as of this encounter (statuses as of 10/17/2022) [facility]2015 History of Past illness Narrative* Problem Noted Date Resolved Date Leg cramps 04/03/2015 12/09/2018 Last Assessment & Plan: She still continues with the leg cramps. She is getting some cramps in the hands and legs. She started putting liniments in it on and off. She was checked for the leg cramps with all electrolytes and it was normal Tingling in extremities 04/03/2015 12/10/19 Last Assessment & Plan: Going on almost everyday in the legs and the feet for 8 months,. It is getting worse over the years. Nothing makes the tingling go away, liniment and resting helps so bit. Not diabetic. Closed fracture of metatarsal bone(s) 03/12/2011 12/09/2018 Esophagitis, unspecified 019 Acute gastritis 12/09/2018 Disorder of bone and cartilage, unspecified 12/09/2018 documented as of this encounter (statuses as of 10/18/2022) [facility]2015 History of Past illness Narrative* Problem Noted Date Resolved Date Leg cramps 04/03/2015 12/09/2018 Last Assessment & Plan: She still continues with the leg cramps. She is getting some cramps in the hands and legs. She started putting liniments in it on and off. She was checked for the leg cramps with all electrolytes and it was normal Tingling in extremities 04/03/2015 12/10/19 Last Assessment & Plan: Going on almost everyday in the legs and the feet for 8 months,. It is getting worse over the years. Nothing makes the tingling go away, liniment and resting helps so bit. Not diabetic. Closed fracture of metatarsal bone(s) 03/12/2011 12/09/2018 Esophagitis, unspecified 019 Acute gastritis 12/09/2018 Disorder of bone and cartilage, unspecified 12/09/2018 documented as of this encounter (statuses as of 10/18/2022) [facility] History of Past illness Narrative* Problem Noted Date Resolved Date Leg cramps 04/03/2015 12/09/2018 Last Assessment & Plan: She still continues with the leg cramps. She is getting some cramps in the hands and legs. She started putting liniments in it on and off. She was checked for the leg cramps with all electrolytes and it was normal Tingling in extremities 04/03/2015 12/10/19 Last Assessment & Plan: Going on almost everyday in the legs and the feet for 8 months,. It is getting worse over the years. Nothing makes the tingling go away, liniment and resting helps so bit. Not diabetic. Closed fracture of metatarsal bone(s) 03/12/2011 12/09/2018 Esophagitis, unspecified 019 Acute gastritis 12/09/2018 Disorder of bone and cartilage, unspecified 12/09/2018 documented as of this encounter (statuses as of 10/25/2022) [facility]2015 History of Past illness Narrative* Problem Noted Date Resolved Date Leg cramps 04/03/2015 12/09/2018 Last Assessment & Plan: She still continues with the leg cramps. She is getting some cramps in the hands and legs. She started putting liniments in it on and off. She was checked for the leg cramps with all electrolytes and it was normal Tingling in extremities 04/03/2015 12/10/19 Last Assessment & Plan: Going on almost everyday in the legs and the feet for 8 months,. It is getting worse over the years. Nothing makes the tingling go away, liniment and resting helps so bit. Not diabetic. Closed fracture of metatarsal bone(s) 03/12/2011 12/09/2018 Esophagitis, unspecified 019 Acute gastritis 12/09/2018 Disorder of bone and cartilage, unspecified 12/09/2018 documented as of this encounter (statuses as of 10/29/2022) [facility]2015 History of Past illness Narrative* Problem Noted Date Resolved Date Leg cramps 04/03/2015 12/09/2018 Last Assessment & Plan: She still continues with the leg cramps. She is getting some cramps in the hands and legs. She started putting liniments in it on and off. She was checked for the leg cramps with all electrolytes and it was normal Tingling in extremities 04/03/2015 12/10/19 Last Assessment & Plan: Going on almost everyday in the legs and the feet for 8 months,. It is getting worse over the years. Nothing makes the tingling go away, liniment and resting helps so bit. Not diabetic. Closed fracture of metatarsal bone(s) 03/12/2011 12/09/2018 Esophagitis, unspecified 019 Acute gastritis 12/09/2018 Disorder of bone and cartilage, unspecified 12/09/2018 documented as of this encounter (statuses as of 10/30/2022) [facility] History of Past illness Narrative* Problem Noted Date Resolved Date Leg cramps 04/03/2015 12/09/2018 Last Assessment & Plan: She still continues with the leg cramps. She is getting some cramps in the hands and legs. She started putting liniments in it on and off. She was checked for the leg cramps with all electrolytes and it was normal Tingling in extremities 04/03/2015 12/10/19 Last Assessment & Plan: Going on almost everyday in the legs and the feet for 8 months,. It is getting worse over the years. Nothing makes the tingling go away, liniment and resting helps so bit. Not diabetic. Closed fracture of metatarsal bone(s) 03/12/2011 12/09/2018 Esophagitis, unspecified 019 Acute gastritis 12/09/2018 Disorder of bone and cartilage, unspecified 12/09/2018 documented as of this encounter (statuses as of 11/01/2022) [facility]2015 History of Past illness Narrative* Problem Noted Date Resolved Date Leg cramps 04/03/2015 12/09/2018 Last Assessment & Plan: She still continues with the leg cramps. She is getting some cramps in the hands and legs. She started putting liniments in it on and off. She was checked for the leg cramps with all electrolytes and it was normal Tingling in extremities 04/03/2015 12/10/19 Last Assessment & Plan: Going on almost everyday in the legs and the feet for 8 months,. It is getting worse over the years. Nothing makes the tingling go away, liniment and resting helps so bit. Not diabetic. Closed fracture of metatarsal bone(s) 03/12/2011 12/09/2018 Esophagitis, unspecified 019 Acute gastritis 12/09/2018 Disorder of bone and cartilage, unspecified 12/09/2018 documented as of this encounter (statuses as of 11/06/2022) [facility]2015 History of Past illness Narrative* Problem Noted Date Resolved Date Leg cramps 04/03/2015 12/09/2018 Last Assessment & Plan: She still continues with the leg cramps. She is getting some cramps in the hands and legs. She started putting liniments in it on and off. She was checked for the leg cramps with all electrolytes and it was normal Tingling in extremities 04/03/2015 12/10/19 Last Assessment & Plan: Going on almost everyday in the legs and the feet for 8 months,. It is getting worse over the years. Nothing makes the tingling go away, liniment and resting helps so bit. Not diabetic. Closed fracture of metatarsal bone(s) 03/12/2011 12/09/2018 Esophagitis, unspecified 019 Acute gastritis 12/09/2018 Disorder of bone and cartilage, unspecified 12/09/2018 documented as of this encounter (statuses as of 11/29/2022) [facility]2015 History of Past illness Narrative* Problem Noted Date Resolved Date Leg cramps 04/03/2015 12/09/2018 Last Assessment & Plan: She still continues with the leg cramps. She is getting some cramps in the hands and legs. She started putting liniments in it on and off. She was checked for the leg cramps with all electrolytes and it was normal Tingling in extremities 04/03/2015 12/10/19 Last Assessment & Plan: Going on almost everyday in the legs and the feet for 8 months,. It is getting worse over the years. Nothing makes the tingling go away, liniment and resting helps so bit. Not diabetic. Closed fracture of metatarsal bone(s) 03/12/2011 12/09/2018 Esophagitis, unspecified 019 Acute gastritis 12/09/2018 Disorder of bone and cartilage, unspecified 12/09/2018 documented as of this encounter (statuses as of 12/04/2022) [facility]2015 History of Past illness Narrative* Problem Noted Date Resolved Date Leg cramps 04/03/2015 12/09/2018 Last Assessment & Plan: She still continues with the leg cramps. She is getting some cramps in the hands and legs. She started putting liniments in it on and off. She was checked for the leg cramps with all electrolytes and it was normal Tingling in extremities 04/03/2015 12/10/19 Last Assessment & Plan: Going on almost everyday in the legs and the feet for 8 months,. It is getting worse over the years. Nothing makes the tingling go away, liniment and resting helps so bit. Not diabetic. Closed fracture of metatarsal bone(s) 03/12/2011 12/09/2018 Esophagitis, unspecified 019 Acute gastritis 12/09/2018 Disorder of bone and cartilage, unspecified 12/09/2018 documented as of this encounter (statuses as of 12/16/2022) [facility] History of Past illness Narrative* Problem Noted Date Resolved Date Leg cramps 04/03/2015 12/09/2018 Last Assessment & Plan: She still continues with the leg cramps. She is getting some cramps in the hands and legs. She started putting liniments in it on and off. She was checked for the leg cramps with all electrolytes and it was normal Tingling in extremities 04/03/2015 12/10/19 Last Assessment & Plan: Going on almost everyday in the legs and the feet for 8 months,. It is getting worse over the years. Nothing makes the tingling go away, liniment and resting helps so bit. Not diabetic. Closed fracture of metatarsal bone(s) 03/12/2011 12/09/2018 Esophagitis, unspecified 019 Acute gastritis 12/09/2018 Disorder of bone and cartilage, unspecified 12/09/2018 documented as of this encounter (statuses as of 12/19/2022) [facility]08[facility]2015 History of Past illness Narrative* Problem Noted Date Resolved Date Leg cramps 04/03/2015 12/09/2018 Last Assessment & Plan: She still continues with the leg cramps. She is getting some cramps in the hands and legs. She started putting liniments in it on and off. She was checked for the leg cramps with all electrolytes and it was normal Tingling in extremities 04/03/2015 12/10/19 Last Assessment & Plan: Going on almost everyday in the legs and the feet for 8 months,. It is getting worse over the years. Nothing makes the tingling go away, liniment and resting helps so bit. Not diabetic. Closed fracture of metatarsal bone(s) 03/12/2011 12/09/2018 Esophagitis, unspecified 019 Acute gastritis 12/09/2018 Disorder of bone and cartilage, unspecified 12/09/2018 documented as of this encounter (statuses as of 12/26/2022) [facility]2015 History of Past illness Narrative* Problem Noted Date Resolved Date Leg cramps 04/03/2015 12/09/2018 Last Assessment & Plan: She still continues with the leg cramps. She is getting some cramps in the hands and legs. She started putting liniments in it on and off. She was checked for the leg cramps with all electrolytes and it was normal Tingling in extremities 04/03/2015 12/10/19 Last Assessment & Plan: Going on almost everyday in the legs and the feet for 8 months,. It is getting worse over the years. Nothing makes the tingling go away, liniment and resting helps so bit. Not diabetic. Closed fracture of metatarsal bone(s) 03/12/2011 12/09/2018 Esophagitis, unspecified 019 Acute gastritis 12/09/2018 Disorder of bone and cartilage, unspecified 12/09/2018 documented as of this encounter (statuses as of 01/24/2023) [facility]08[facility]2015 History of Past illness Narrative* Problem Noted Date Resolved Date Leg cramps 04/03/2015 12/09/2018 Last Assessment & Plan: She still continues with the leg cramps. She is getting some cramps in the hands and legs. She started putting liniments in it on and off. She was checked for the leg cramps with all electrolytes and it was normal Tingling in extremities 04/03/2015 12/10/19 Last Assessment & Plan: Going on almost everyday in the legs and the feet for 8 months,. It is getting worse over the years. Nothing makes the tingling go away, liniment and resting helps so bit. Not diabetic. Closed fracture of metatarsal bone(s) 03/12/2011 12/09/2018 Esophagitis, unspecified 019 Acute gastritis 12/09/2018 Disorder of bone and cartilage, unspecified 12/09/2018 documented as of this encounter (statuses as of 02/18/2023) [facility]08[facility]2015 History of Past illness Narrative* Problem Noted Date Diagnosed Date Resolved Date Leg cramps 04/03/2015 12/09/2018 Last Assessment & Plan: She still continues with the leg cramps. She is getting some cramps in the hands and legs. She started putting liniments in it on and off. She was checked for the leg cramps with all electrolytes and it was normal Tingling in extremities 04/03/201511/23 Last Assessment & Plan: Going on almost everyday in the legs and the feet for 8 months,. It is getting worse over the years. Nothing makes the tingling go away, liniment and resting helps so bit. Not diabetic. Closed fracture of metatarsal bone(s) 03/12/2011 12/09/2018 Esophagitis, unspecified Acute gastritis 12/09/2018 Disorder of bone and cartilage, unspecified 12/09/2018 documented as of this encounter (statuses as of 03/24/2023) [facility] History of Past illness Narrative* Problem Noted Date Diagnosed Date Resolved Date Leg cramps 04/03/2015 12/09/2018 Last Assessment & Plan: She still continues with the leg cramps. She is getting some cramps in the hands and legs. She started putting liniments in it on and off. She was checked for the leg cramps with all electrolytes and it was normal Tingling in extremities 04/03/201511/23 Last Assessment & Plan: Going on almost everyday in the legs and the feet for 8 months,. It is getting worse over the years. Nothing makes the tingling go away, liniment and resting helps so bit. Not diabetic. Closed fracture of metatarsal bone(s) 03/12/2011 12/09/2018 Esophagitis, unspecified Acute gastritis 12/09/2018 Disorder of bone and cartilage, unspecified 12/09/2018 documented as of this encounter (statuses as of 04/25/2023) [facility] History of Past illness Narrative* Problem Noted Date Diagnosed Date Resolved Date Leg cramps 04/03/2015 12/09/2018 Last Assessment & Plan: She still continues with the leg cramps. She is getting some cramps in the hands and legs. She started putting liniments in it on and off. She was checked for the leg cramps with all electrolytes and it was normal Tingling in extremities 04/03/201511/23 Last Assessment & Plan: Going on almost everyday in the legs and the feet for 8 months,. It is getting worse over the years. Nothing makes the tingling go away, liniment and resting helps so bit. Not diabetic. Closed fracture of metatarsal bone(s) 03/12/2011 12/09/2018 Esophagitis, unspecified Acute gastritis 12/09/2018 Disorder of bone and cartilage, unspecified 12/09/2018 documented as of this encounter (statuses as of 05/02/2023) [facility] History of Past illness Narrative* Problem Noted Date Diagnosed Date Resolved Date Leg cramps 04/03/2015 12/09/2018 Last Assessment & Plan: She still continues with the leg cramps. She is getting some cramps in the hands and legs. She started putting liniments in it on and off. She was checked for the leg cramps with all electrolytes and it was normal Tingling in extremities 04/03/201511/23 Last Assessment & Plan: Going on almost everyday in the legs and the feet for 8 months,. It is getting worse over the years. Nothing makes the tingling go away, liniment and resting helps so bit. Not diabetic. Closed fracture of metatarsal bone(s) 03/12/2011 12/09/2018 Esophagitis, unspecified Acute gastritis 12/09/2018 Disorder of bone and cartilage, unspecified 12/09/2018 documented as of this encounter (statuses as of 06/17/2023) [facility] History of Past illness Narrative* Problem Noted Date Diagnosed Date Resolved Date Leg cramps 04/03/2015 12/09/2018 Last Assessment & Plan: She still continues with the leg cramps. She is getting some cramps in the hands and legs. She started putting liniments in it on and off. She was checked for the leg cramps with all electrolytes and it was normal Tingling in extremities 04/03/201511/23 Last Assessment & Plan: Going on almost everyday in the legs and the feet for 8 months,. It is getting worse over the years. Nothing makes the tingling go away, liniment and resting helps so bit. Not diabetic. Closed fracture of metatarsal bone(s) 03/12/2011 12/09/2018 Esophagitis, unspecified Acute gastritis 12/09/2018 Disorder of bone and cartilage, unspecified 12/09/2018 documented as of this encounter (statuses as of 06/23/2023) [facility] History of Past illness Narrative* Problem Noted Date Diagnosed Date Resolved Date Leg cramps 04/03/2015 12/09/2018 Last Assessment & Plan: She still continues with the leg cramps. She is getting some cramps in the hands and legs. She started putting liniments in it on and off. She was checked for the leg cramps with all electrolytes and it was normal Tingling in extremities 04/03/201511/23 Last Assessment & Plan: Going on almost everyday in the legs and the feet for 8 months,. It is getting worse over the years. Nothing makes the tingling go away, liniment and resting helps so bit. Not diabetic. Closed fracture of metatarsal bone(s) 03/12/2011 12/09/2018 Esophagitis, unspecified Acute gastritis 12/09/2018 Disorder of bone and cartilage, unspecified 12/09/2018 documented as of this encounter (statuses as of 07/08/2023) [facility] History of Past illness Narrative* Problem Noted Date Diagnosed Date Resolved Date Leg cramps 04/03/2015 12/09/2018 Last Assessment & Plan: She still continues with the leg cramps. She is getting some cramps in the hands and legs. She started putting liniments in it on and off. She was checked for the leg cramps with all electrolytes and it was normal Tingling in extremities 04/03/201511/23 Last Assessment & Plan: Going on almost everyday in the legs and the feet for 8 months,. It is getting worse over the years. Nothing makes the tingling go away, liniment and resting helps so bit. Not diabetic. Closed fracture of metatarsal bone(s) 03/12/2011 12/09/2018 Esophagitis, unspecified Acute gastritis 12/09/2018 Disorder of bone and cartilage, unspecified 12/09/2018 documented as of this encounter (statuses as of 07/20/2023) [facility] History of Past illness Narrative* Problem Noted Date Diagnosed Date Resolved Date Leg cramps 04/03/2015 12/09/2018 Last Assessment & Plan: She still continues with the leg cramps. She is getting some cramps in the hands and legs. She started putting liniments in it on and off. She was checked for the leg cramps with all electrolytes and it was normal Tingling in extremities 04/03/201511/23 Last Assessment & Plan: Going on almost everyday in the legs and the feet for 8 months,. It is getting worse over the years. Nothing makes the tingling go away, liniment and resting helps so bit. Not diabetic. Closed fracture of metatarsal bone(s) 03/12/2011 12/09/2018 Esophagitis, unspecified Acute gastritis 12/09/2018 Disorder of bone and cartilage, unspecified 12/09/2018 documented as of this encounter (statuses as of 07/21/2023) [facility] History of Past illness Narrative* Problem Noted Date Diagnosed Date Resolved Date Leg cramps 04/03/2015 12/09/2018 Last Assessment & Plan: She still continues with the leg cramps. She is getting some cramps in the hands and legs. She started putting liniments in it on and off. She was checked for the leg cramps with all electrolytes and it was normal Tingling in extremities 04/03/201511/23 Last Assessment & Plan: Going on almost everyday in the legs and the feet for 8 months,. It is getting worse over the years. Nothing makes the tingling go away, liniment and resting helps so bit. Not diabetic. Closed fracture of metatarsal bone(s) 03/12/2011 12/09/2018 Esophagitis, unspecified Acute gastritis 12/09/2018 Disorder of bone and cartilage, unspecified 12/09/2018 documented as of this encounter (statuses as of 07/30/2023) [facility] History of Past illness Narrative* Problem Noted Date Diagnosed Date Resolved Date Leg cramps 04/03/2015 12/09/2018 Last Assessment & Plan: She still continues with the leg cramps. She is getting some cramps in the hands and legs. She started putting liniments in it on and off. She was checked for the leg cramps with all electrolytes and it was normal Tingling in extremities 04/03/201511/23 Last Assessment & Plan: Going on almost everyday in the legs and the feet for 8 months,. It is getting worse over the years. Nothing makes the tingling go away, liniment and resting helps so bit. Not diabetic. Closed fracture of metatarsal bone(s) 03/12/2011 12/09/2018 Esophagitis, unspecified Acute gastritis 12/09/2018 Disorder of bone and cartilage, unspecified 12/09/2018 documented as of this encounter (statuses as of 09/07/2023) [facility] History of Past illness Narrative* Problem Noted Date Diagnosed Date Resolved Date Leg cramps 04/03/2015 12/09/2018 Last Assessment & Plan: She still continues with the leg cramps. She is getting some cramps in the hands and legs. She started putting liniments in it on and off. She was checked for the leg cramps with all electrolytes and it was normal Tingling in extremities 04/03/201511/23 Last Assessment & Plan: Going on almost everyday in the legs and the feet for 8 months,. It is getting worse over the years. Nothing makes the tingling go away, liniment and resting helps so bit. Not diabetic. Closed fracture of metatarsal bone(s) 03/12/2011 12/09/2018 Esophagitis, unspecified Acute gastritis 12/09/2018 Disorder of bone and cartilage, unspecified 12/09/2018 documented as of this encounter (statuses as of 10/10/2023) [facility] History of Past illness Narrative* Problem Noted Date Diagnosed Date Resolved Date Leg cramps 04/03/2015 12/09/2018 Last Assessment & Plan: She still continues with the leg cramps. She is getting some cramps in the hands and legs. She started putting liniments in it on and off. She was checked for the leg cramps with all electrolytes and it was normal Tingling in extremities 04/03/201511/23 Last Assessment & Plan: Going on almost everyday in the legs and the feet for 8 months,. It is getting worse over the years. Nothing makes the tingling go away, liniment and resting helps so bit. Not diabetic. Closed fracture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 in this encounter [facility] note* Diagnosis Encounter to establish care- Primary Other reasons for seeking consultation Cramp of both lower extremities Tingling in extremities Disturbance of skin sensation Chronic bronchitis, unspecified chronic bronchitis type (HCC) Pain in both feet Pain in limb Chronic bronchitis, unspecified chronic bronchitis type (HCC)- Primary Cramp of both lower extremities Dyslipidemia (high LDL; low HDL) Other and unspecified hyperlipidemia Vaginal dryness Other specified symptom associated with female genital organs Need for prophylactic vaccination against Streptococcus pneumoniae (pneumococcus) Need for prophylactic vaccination against streptococcus pneumoniae (pneumococcus) Vitamin B 12 deficiency Other B-complex deficiencies Essential hypertension- Primary Unspecified essential hypertension Uncontrolled stage 2 hypertension- Primary Unspecified essential hypertension Need for vaccination Need for prophylactic vaccination and inoculation against unspecified single disease Chronic bronchitis, unspecified chronic bronchitis type (HCC) Osteopenia of multiple sites Vitamin D deficiency Unspecified vitamin D deficiency Stage 3 chronic kidney disease (HCC) Essential hypertension Unspecified essential hypertension [facility] Encounter to establish care- Primary Other reasons for seeking consultation Cramp of both lower extremities Tingling in extremities Disturbance of skin sensation Chronic bronchitis, unspecified chronic bronchitis type (HCC) Pain in both feet Pain in limb Chronic bronchitis, unspecified chronic bronchitis type (HCC)- Primary Cramp of both lower extremities Dyslipidemia (high LDL; low HDL) Other and unspecified hyperlipidemia Vaginal dryness Other specified symptom associated with female genital organs Need for prophylactic vaccination against Streptococcus pneumoniae (pneumococcus) Need for prophylactic vaccination against streptococcus pneumoniae (pneumococcus) Vitamin B 12 deficiency Other B-complex deficiencies Essential hypertension- Primary Unspecified essential hypertension Uncontrolled stage 2 hypertension- Primary Unspecified essential hypertension Need for vaccination Need for prophylactic vaccination and inoculation against unspecified single disease Chronic bronchitis, unspecified chronic bronchitis type (HCC) Osteopenia of multiple sites Vitamin D deficiency Unspecified vitamin D deficiency Stage 3 chronic kidney disease (HCC) Acute midline low back pain without sciatica- Primary documented in this encounter [facility] note* Diagnosis Onset Date Resolution Status Admit Date Acute back pain acute January 10, 2025 9:47am Anterolisthesis of lumbar spine acut e January 10, 2025 9:47am Lumbar compression fracture acute January 10, 2025 9:47am Lumbar degenerative disc disease acu te January 10, 2025 9:47am [facility] Work Phone: Evaluation note* Diagnosis Encounter to establish care- Primary Other reasons for seeking consultation Cramp of both lower extremities Tingling in extremities Disturbance of skin sensation Chronic bronchitis, unspecified chronic bronchitis type (HCC) Pain in both feet Pain in limb Chronic bronchitis, unspecified chronic bronchitis type (HCC)- Primary Cramp of both lower extremities Dyslipidemia (high LDL; low HDL) Other and unspecified hyperlipidemia Vaginal dryness Other specified symptom associated with female genital organs Need for prophylactic vaccination against Streptococcus pneumoniae (pneumococcus) Need for prophylactic vaccination against streptococcus pneumoniae (pneumococcus) Vitamin B 12 deficiency Other B-complex deficiencies Essential hypertension- Primary Unspecified essential hypertension Uncontrolled stage 2 hypertension- Primary Unspecified essential hypertension Need for vaccination Need for prophylactic vaccination and inoculation against unspecified single disease Chronic bronchitis, unspecified chronic bronchitis type (HCC) Osteopenia of multiple sites Vitamin D deficiency Unspecified vitamin D deficiency Stage 3 chronic kidney disease (HCC) Age-related osteoporosis with current pathological fracture, initial encounter- Primary Essential hypertension Unspecified essential hypertension Vitamin D deficiency Unspecified vitamin D deficiency Osteoporosis, unspecified osteoporosis type, unspecified pathological fracture presence Compression fracture of lumbar vertebra, unspecified lumbar vertebral level, initial encounter ([facility]) Gastro-esophageal reflux disease without esophagitis Esophageal reflux [facility] Diagnosis Encounter to establish care- Primary Other reasons for seeking consultation Cramp of both lower extremities Tingling in extremities Disturbance of skin sensation Chronic bronchitis, unspecified chronic bronchitis type (HCC) Pain in both feet Pain in limb Chronic bronchitis, unspecified chronic bronchitis type (HCC)- Primary Cramp of both lower extremities Dyslipidemia (high LDL; low HDL) Other and unspecified hyperlipidemia Vaginal dryness Other specified symptom associated with female genital organs Need for prophylactic vaccination against Streptococcus pneumoniae (pneumococcus) Need for prophylactic vaccination against streptococcus pneumoniae (pneumococcus) Vitamin B 12 deficiency Other B-complex deficiencies Essential hypertension- Primary Unspecified essential hypertension Uncontrolled stage 2 hypertension- Primary Unspecified essential hypertension Need for vaccination Need for prophylactic vaccination and inoculation against unspecified single disease Chronic bronchitis, unspecified chronic bronchitis type (HCC) Osteopenia of multiple sites Vitamin D deficiency Unspecified vitamin D deficiency Stage 3 chronic kidney disease (HCC) Ulcer of left lower extremity, limited to breakdown of skin (HCC)- Primary Cellulitis of left lower extremity Cellulitis and abscess of leg, except foot [facility] Diagnosis Encounter to establish care- Primary Other reasons for seeking consultation Cramp of both lower extremities Tingling in extremities Disturbance of skin sensation Chronic bronchitis, unspecified chronic bronchitis type (HCC) Pain in both feet Pain in limb Chronic bronchitis, unspecified chronic bronchitis type (HCC)- Primary Cramp of both lower extremities Dyslipidemia (high LDL; low HDL) Other and unspecified hyperlipidemia Vaginal dryness Other specified symptom associated with female genital organs Need for prophylactic vaccination against Streptococcus pneumoniae (pneumococcus) Need for prophylactic vaccination against streptococcus pneumoniae (pneumococcus) Vitamin B 12 deficiency Other B-complex deficiencies Essential hypertension- Primary Unspecified essential hypertension Uncontrolled stage 2 hypertension- Primary Unspecified essential hypertension Need for vaccination Need for prophylactic vaccination and inoculation against unspecified single disease Chronic bronchitis, unspecified chronic bronchitis type (HCC) Osteopenia of multiple sites Vitamin D deficiency Unspecified vitamin D deficiency Stage 3 chronic kidney disease (HCC) Ulcer of left lower extremity with fat layer exposed (HCC)- Primary Constipation, unspecified constipation type Essential hypertension Unspecified essential hypertension [facility] Encounter to establish care- Primary Other reasons for seeking consultation Cramp of both lower extremities Tingling in extremities Disturbance of skin sensation Chronic bronchitis, unspecified chronic bronchitis type (HCC) Pain in both feet Pain in limb Chronic bronchitis, unspecified chronic bronchitis type (HCC)- Primary Cramp of both lower extremities Dyslipidemia (high LDL; low HDL) Other and unspecified hyperlipidemia Vaginal dryness Other specified symptom associated with female genital organs Need for prophylactic vaccination against Streptococcus pneumoniae (pneumococcus) Need for prophylactic vaccination against streptococcus pneumoniae (pneumococcus) Vitamin B 12 deficiency Other B-complex deficiencies Essential hypertension- Primary Unspecified essential hypertension Uncontrolled stage 2 hypertension- Primary Unspecified essential hypertension Need for vaccination Need for prophylactic vaccination and inoculation against unspecified single disease Chronic bronchitis, unspecified chronic bronchitis type (HCC) Osteopenia of multiple sites Vitamin D deficiency Unspecified vitamin D deficiency Stage 3 chronic kidney disease (HCC) Osteoporotic compression fracture of vertebra with delayed healing, subsequent encounter- Primary [facility] Discharge instructions Additional Instructions Continue your Nexium. You can use the Carafate just prior to each meal. Follow-up with a continuous absorption process operator because you probably need another upper endoscopy. Return if feeling worse.[facility] Work Phone: Hospital Discharge instructions Additional Instructions Thank you for trusting us with your care today! Your CT scan showed evidence of a lumbar compression fracture. There is a stable fracture of the spine that heals typically without intervention. Please take Tylenol (2 pills, 650 mg), ibuprofen (2 pills, 400 mg) every 6 hours as needed for pain and fever control. Please take oxycodone as breakthrough pain control the above regimen does not control your pain. Please go to local pharmacy or drugstore obtain Salonpas lidocaine patches apply this to the painful area. Please return to the emergency department if your symptoms change or worsen. Please follow with spine surgeon for further outpatient evaluation and management if pain worsens or persists.[facility] Work Phone: Reason for referral (narrative)* Outpatient Procedure (Routine) - Authorized Specialty Diagnoses / Procedures Referred By Zak t Referred To Contact [facility] Diagnoses Chronic obstructive pulmonary disease, unspecified COPD type (HCC) Procedures SPIROMETRY - BASELINE AND POST DILATOR BRNCDILAT RSPSE SPMTRY PRE&POST-BRNCDILAT ADMN Da Castro MD [address] [place] [address] Respiratory [place] [address] [place] [address] Referral ID Status Reason Start Date Expiration Date Visits Requested Visits Authorized [id number] Authorized Auto-Generat ed Referral 01/23/2022 02/22/2023 1 1 [facility] for referral (narrative)* Diagnostic Procedure Only (Routine) - Closed Specialty Diagnoses / Procedures Referred By Contac t Referred To Contact XR IMAGING Diagnoses Injury of left foot, sequela Procedures XR FOOT GENERAL 3V AP/LAT/OBL LEFT RADEX FOOT COMPLETE MINIMUM 3 VIEWS Da Castro MD [address] [place] [address] Xr Imaging Referral ID Status Reason Start Date Expiration Date V isits Requested Visits Authorized [id number] Closed Auto-Generate d Referral 06/11/2022 07/11/2023 1 1 [facility] for referral (narrative)* Diagnostic Procedure Only (Urgent) - Closed Specialty Diagnoses / Procedures Referred By Contac t Referred To Contact XR IMAGING Diagnoses Fall on same level from slipping, tripping or stumbling, initial encounter Right hand pain Procedures XR HAND GENERAL 3V PA/LAT/OBL RIGHT RADEX HAND MINIMUM 3 VIEWS Lila Gray APRN.CNP [address] [place] [address] [place] [id number] Referral ID Status Reason Start Date Expiration Date V isits Requested Visits Authorized [id number] Closed Auto-Generate d Referral 04/09/2024 05/09/2025 1 1 * Diagnostic Procedure Only (Urgent) - Closed Specialty Diagnoses / Procedures Referred By Contac t Referred To Contact XR IMAGING Diagnoses Right wrist pain Fall on same level from slipping, tripping or stumbling, initial encounter Procedures XR WRIST GENERAL 3V PA/LAT/OBL RIGHT RADEX WRIST COMPLETE MINIMUM 3 VIEWS Lila Gray APRN.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 [address] [place] [address] [place] [address] Referral ID Status Reason Start Date Expiration Date V isits Requested Visits Authorized [id number] Closed Auto-Generate d Referral 04/09/2024 05/09/2025 1 1 [facility] for referral (narrative)* Diagnostic Procedure Only (Urgent) - Closed Specialty Diagnoses / Procedures Referred By Contac t Referred To Contact XR IMAGING Diagnoses Fall on same level from slipping, tripping or stumbling, initial encounter Right hand pain Procedures XR HAND GENERAL 3V PA/LAT/OBL RIGHT RADEX HAND MINIMUM 3 VIEWS Lila Gray APRN.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 [address] [place] [address] [place] [address] Referral ID Status Reason Start Date Expiration Date V isits Requested Visits Authorized [id number] Closed Auto-Generate d Referral 04/09/2024 05/09/2025 1 1 * Diagnostic Procedure Only (Urgent) - Closed Specialty Diagnoses / Procedures Referred By Contac t Referred To Contact XR IMAGING Diagnoses Right wrist pain Fall on same level from slipping, tripping or stumbling, initial encounter Procedures XR WRIST GENERAL 3V PA/LAT/OBL RIGHT RADEX WRIST COMPLETE MINIMUM 3 VIEWS Lila Gray APRN.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 [address] [place] [address] [place] [address] Referral ID Status Reason Start Date Expiration Date V isits Requested Visits Authorized [id number] Closed Auto-Generate d Referral 04/09/2024 05/09/2025 1 1 [facility] for referral (narrative)* Diagnostic Procedure Only (Routine) - Closed Specialty Diagnoses / Procedures Referred By Contac t Referred To Contact XR IMAGING Diagnoses Injury of left foot, sequela Procedures XR FOOT GENERAL 3V AP/LAT/OBL LEFT RADEX FOOT COMPLETE MINIMUM 3 VIEWS Da Castro MD [address] [place] [address] [place] [address] Referral ID Status Reason Start Date Expiration Date V isits Requested Visits Authorized [id number] Closed Auto-Generate d Referral 06/11/2022 07/11/2023 1 1 [facility] for referral (narrative)No reason for referral information [facility] Work [facility]: Reason for visit Narrative* Diagnostic Procedure Only (Urgent) - Closed Specialty Diagnoses / Procedures Referred By Contac t Referred To Contact XR IMAGING Diagnoses Fall on same level from slipping, tripping or stumbling, initial encounter Right hand pain Procedures XR HAND GENERAL 3V PA/LAT/OBL RIGHT RADEX HAND MINIMUM 3 VIEWS Lila Gray, BRADLEY[address]REE [address] [place] [address] [place] [address] Referral ID Status Reason Start Date Expiration Date V isits Requested Visits Authorized [id number] Closed Auto-Generate d Referral 04/09/2024 05/09/2025 1 1 [facility] for visit Narrative* Diagnostic Procedure Only (Routine) - Closed Specialty Diagnoses / Procedures Referred By Contac t Referred To Contact XR IMAGING Diagnoses Injury of left foot, sequela Procedures XR FOOT GENERAL 3V AP/LAT/OBL LEFT RADEX FOOT COMPLETE MINIMUM 3 VIEWS Da Castro MD [address] [place] [address] [place] [address] Referral ID Status Reason Start Date Expiration Date V isits Requested Visits Authorized [id number] Closed Auto-Generate d Referral 06/11/2022 07/11/2023 1 1 [facility] Chief Complaint and Reason for Visit Chief Complaint abd pain Chief Complaint ER FU 8 WK FU SEVERE HIATAL HERNIA, EVAL FOR VOLVULUS Reason for Visit Acute gastritis Constipation Hiatal hernia with GERD without esophagitis Chief Complaint 8 WK FU SEVERE HIATAL HERNIA, EVAL FOR VOLVULUS HIATAL HERNIA, EVAL FOR MOTILITY ISSUES Reason for Visit Constipation Hiatal hernia with GERD without esophagitis Chief Complaint ABD PAIN Chief Complaint Admit Date back December 31, 2024 3:45pm Chief Complaint Admit Date back December 31, 2024 3:45pm BACK PAIN January 10, 2025 9:47a m Reason for Visit Admit Date Acute back pain January 10, 2025 9:47a m Anterolisthesis of lumbar spine December 9:47am Lumbar compression fracture January 10 9:47am Lumbar degenerative disc disease December 9:47am Chief Complaint Admit Date back December 31, 2024 3:45pm BACK PAIN January 10, 2025 9:47a m BACK PAIN January 10, 2025 4:53p m BACK PAIN January 11, 2025 3:38p m Chief Complaint Admit Date back December 31, 2024 3:45pm BACK PAIN January 10, 2025 9:47a m BACK PAIN January 10, 2025 4:53p m BACK PAIN January 11, 2025 3:38p m WOUND February 09, 2025 4:15 pm WOUND February 16, 2025 1:15 pm WOUND February 18, 2025 3:51 pm Reason for Visit Admit Date Acute back pain January 10, 2025 9:47a m Anterolisthesis of lumbar spine December 9:47am Lumbar compression fracture January 10 9:47am Lumbar degenerative disc disease December 9:47am Diverticulosis February 16, 2025 1:15 pm Lumbar degenerative disc disease February 162024 1:15pm Vertigo February 16, 2025 1:15 pm HUMPHRIES (dyspnea on exertion) February 16 1:15pm Hiatal hernia with GERD without esophagi tis February 16, 2025 1:15pm Hypertension February 16, 2025 1:15 pm 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 February 16, 2025 1:15pm Psoriasis February 16, 2025 1:15 pm Stage 1 mild COPD by GOLD classification February 16, 2025 1:15pm History of amputation of right great toe February 16, 2025 1:15pm History of appendectomy February 16, 2025 1:15pm History of cataract extraction January 1:15pm history of hand reconstruction January 1:15pm history of left arm surgery February 16, 025 1:15pm Chief Complaint Admit Date back December 31, 2024 3:45pm BACK PAIN January 10, 2025 9:47a m BACK PAIN January 10, 2025 4:53p m BACK PAIN January 11, 2025 3:38p m WOUND February 09, 2025 4:15 pm WOUND February 16, 2025 1:15 pm WOUND February 16, 2025 3:51 pm WOUND February 22, 2025 3:08p m WOUND March 01, 2025 8:00a m WOUND March 01, 2025 4:28p m Reason for Visit Admit Date Acute back pain January 10, 2025 9:47a m Anterolisthesis of lumbar spine December 9:47am Lumbar compression fracture January 10 9:47am Lumbar degenerative disc disease December 9:47am Diverticulosis February 16, 2025 1:15 pm Lumbar degenerative disc disease February 162024 1:15pm Vertigo February 16, 2025 1:15 pm HUMPHRIES (dyspnea on exertion) February 16 1:15pm Hiatal hernia with GERD without esophagi tis February 16, 2025 1:15pm Hypertension February 16, 2025 1:15 pm 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 February 16, 2025 1:15pm Psoriasis February 16, 2025 1:15 pm Stage 1 mild COPD by GOLD classification February 16, 2025 1:15pm History of amputation of right great toe February 16, 2025 1:15pm History of appendectomy February 16, 2025 1:15pm History of cataract extraction January 1:15pm history of hand reconstruction January 1:15pm history of left arm surgery February 16, 2 025 1:15pm Diverticulosis March 01, 2025 8:00a m Lumbar degenerative disc disease February 8:00am Vertigo March 01, 2025 8:00a m HUMPHRIES (dyspnea on exertion) March 01, 2025 8:00am Hiatal hernia with GERD without esophagi tis March 01, 2025 8:00am Hypertension March 01, 2025 8:00a m 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 March 01, 2025 8:00am Psoriasis March 01, 2025 8:00a m Stage 1 mild COPD by GOLD classification March 01, 2025 8:00am History of amputation of right great toe March 01, 2025 8:00am History of appendectomy March 01, 2025 8 :00am History of cataract extraction March 01, 2025 8:00am history of hand reconstruction March 01, 2025 8:00am history of left arm surgery March 01 8:00am Family History No Family History Records Found Relationship Condition Age at Onset Recorded Date/T yayo mother Malignant neoplasm of colon Unknown father Malignant neoplasm of colon Unknown sister Malignant neoplasm of breast Unknown Diabetes mellitus Unknown Cerebrovascular accident (CVA) Unknown Malignant neoplasm of cervix Unknown brother Cardiac disease Unknown daughter Chronic obstructive pulmonary disease Unk nown son Diabetes mellitus Unknown Advance Directives No Advanced Directives Records Found Advance Directive Response Recorded Date/ Time Living Will No November 22, 2021 1:18pm Power of Audio Specialist No November 22 1:18pm Advance Directive Response Recorded Date/ Time Living Will Yes November 18, 2023 7:17pm Power of Audio Specialist Yes November 17 7:17pm Name of Medical Power of Audio Specialist Kaleb son November 18, 2023 7:17pm Advance Directive Response Recorded Date/ Time Do you have a Healthcare Power of Audio Specialist? No December 31, 2024 4:01pm Advance Directive Response Recorded Date/ Time Do you have a Healthcare Power of Audio Specialist? No December 31, 2024 4:01pm Do you have a Healthcare Power of Audio Specialist? No January 10, 2025 7:27am Advance Directive Response Recorded Date/ Time Do you have a Healthcare Power of Audio Specialist? No December 31, 2024 4:01pm Do you have a Healthcare Power of Audio Specialist? No January 10, 2025 11:37am Health Concerns Infection Onset Date Last Indicated Resolved Time COVID-19 Rule-Out 10/16/2022 10/16/2022 10/17/2022 2:20 AM EST COVID-19 Confirmed 10/16/2022 10/16/2022 Infection Onset Date Last Indicated Resolved Time COVID-19 Confirmed 10/16/2022 10/16/2022 Infection Onset Date Last Indicated Resolved Time COVID-19 Confirmed 10/16/2022 10/16/2022 3 8:51 PM EST Reason for Referral Specialty Diagnoses / Procedures Referred By Contac t Referred To Contact General Surgery Diagnoses Diverticulitis Hiatal hernia Procedures CONSULT TO GENERAL SURGERY OFFICE/OUTPATIENT [facility] 60 MINUTES Shelia Franklin APRN.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 [address] [place] [address] Referral ID Status Reason Start Date Expiration Date Visits Requested Visits Authorized [id number] Authorized PCP Requested Referral 11/24/2023 11/23/2024 1 1 Summary Purpose Additional Source Comments Source Comments (unrecognize d section and content) In the event this informatio n is protected by the Federal Confidentiality of Alcohol and Drug Abuse Patient Records regulations: The Federal rules restrict any use of the information to criminally investigate or prosecute any alcohol or drug abuse patient.[facility] the event this information is protected by the Federal Confidentiality of Alcohol and Drug Abuse Patient Records regulations: The Federal rules restrict any use of the information to criminally investigate or prosecute any alcohol or drug abuse patient.[facility] CenterIn the event this information is protected by the Federal Confidentiality of Alcohol and Drug Abuse Patient Records regulations: The Federal rules restrict any use of the information to criminally investigate or prosecute any alcohol or drug abuse patient.[facility] CenterIn the event this information is protected by the Federal Confidentiality of Alcohol and Drug Abuse Patient Records regulations: The Federal rules restrict any use of the information to criminally investigate or prosecute any alcohol or drug abuse patient.[facility] CenterIn the event this information is protected by the Federal Confidentiality of Alcohol and Drug Abuse Patient Records regulations: The Federal rules restrict any use of the information to criminally investigate or prosecute any alcohol or drug abuse patient.[facility] CenterIn the event this information is protected by the Federal Confidentiality of Alcohol and Drug Abuse Patient Records regulations: The Federal rules restrict any use of the information to criminally investigate or prosecute any alcohol or drug abuse patient.[facility] CenterIn the event this information is protected by the Federal Confidentiality of Alcohol and Drug Abuse Patient Records regulations: The Federal rules restrict any use of the information to criminally investigate or prosecute any alcohol or drug abuse patient.[facility] CenterIn the event this information is protected by the Federal Confidentiality of Alcohol and Drug Abuse Patient Records regulations: The Federal rules restrict any use of the information to criminally investigate or prosecute any alcohol or drug abuse patient.[facility] CenterIn the event this information is protected by the Federal Confidentiality of Alcohol and Drug Abuse Patient Records regulations: The Federal rules restrict any use of the information to criminally investigate or prosecute any alcohol or drug abuse patient.[facility] CenterIn the event this information is protected by the Federal Confidentiality of Alcohol and Drug Abuse Patient Records regulations: The Federal rules restrict any use of the information to criminally investigate or prosecute any alcohol or drug abuse patient.[facility] CenterIn the event this information is protected by the Federal Confidentiality of Alcohol and Drug Abuse Patient Records regulations: The Federal rules restrict any use of the information to criminally investigate or prosecute any alcohol or drug abuse patient.[facility] CenterIn the event this information is protected by the Federal Confidentiality of Alcohol and Drug Abuse Patient Records regulations: The Federal rules restrict any use of the information to criminally investigate or prosecute any alcohol or drug abuse patient.[facility] CenterIn the event this information is protected by the Federal Confidentiality of Alcohol and Drug Abuse Patient Records regulations: The Federal rules restrict any use of the information to criminally investigate or prosecute any alcohol or drug abuse patient.[facility] CenterIn the event this information is protected by the Federal Confidentiality of Alcohol and Drug Abuse Patient Records regulations: The Federal rules restrict any use of the information to criminally investigate or prosecute any alcohol or drug abuse patient.[facility] CenterIn the event this information is protected by the Federal Confidentiality of Alcohol and Drug Abuse Patient Records regulations: The Federal rules restrict any use of the information to criminally investigate or prosecute any alcohol or drug abuse patient.[facility] CenterIn the event this information is protected by the Federal Confidentiality of Alcohol and Drug Abuse Patient Records regulations: The Federal rules restrict any use of the information to criminally investigate or prosecute any alcohol or drug abuse patient.[facility] CenterIn the event this information is protected by the Federal Confidentiality of Alcohol and Drug Abuse Patient Records regulations: The Federal rules restrict any use of the information to criminally investigate or prosecute any alcohol or drug abuse patient.[facility] CenterIn the event this information is protected by the Federal Confidentiality of Alcohol and Drug Abuse Patient Records regulations: The Federal rules restrict any use of the information to criminally investigate or prosecute any alcohol or drug abuse patient.[facility] CenterIn the event this information is protected by the Federal Confidentiality of Alcohol and Drug Abuse Patient Records regulations: The Federal rules restrict any use of the information to criminally investigate or prosecute any alcohol or drug abuse patient.[facility] CenterIn the event this information is protected by the Federal Confidentiality of Alcohol and Drug Abuse Patient Records regulations: The Federal rules restrict any use of the information to criminally investigate or prosecute any alcohol or drug abuse patient.[facility] CenterIn the event this information is protected by the Federal Confidentiality of Alcohol and Drug Abuse Patient Records regulations: The Federal rules restrict any use of the information to criminally investigate or prosecute any alcohol or drug abuse patient.[facility] CenterIn the event this information is protected by the Federal Confidentiality of Alcohol and Drug Abuse Patient Records regulations: The Federal rules restrict any use of the information to criminally investigate or prosecute any alcohol or drug abuse patient.[facility] CenterIn the event this information is protected by the Federal Confidentiality of Alcohol and Drug Abuse Patient Records regulations: The Federal rules restrict any use of the information to criminally investigate or prosecute any alcohol or drug abuse patient.[facility] CenterIn the event this information is protected by the Federal Confidentiality of Alcohol and Drug Abuse Patient Records regulations: The Federal rules restrict any use of the information to criminally investigate or prosecute any alcohol or drug abuse patient.[facility]In the event this information is protected by the Federal Confidentiality of Alcohol and Drug Abuse Patient Records regulations: The Federal rules restrict any use of the information to criminally investigate or prosecute any alcohol or drug abuse patient.[facility] CenterIn the event this information is protected by the Federal Confidentiality of Alcohol and Drug Abuse Patient Records regulations: The Federal rules restrict any use of the information to criminally investigate or prosecute any alcohol or drug abuse patient.[facility]In the event this information is protected by the Federal Confidentiality of Alcohol and Drug Abuse Patient Records regulations: The Federal rules restrict any use of the information to criminally investigate or prosecute any alcohol or drug abuse patient.[facility]In the event this information is protected by the Federal Confidentiality of Alcohol and Drug Abuse Patient Records regulations: The Federal rules restrict any use of the information to criminally investigate or prosecute any alcohol or drug abuse patient.[facility] CenterIn the event this information is protected by the Federal Confidentiality of Alcohol and Drug Abuse Patient Records regulations: The Federal rules restrict any use of the information to criminally investigate or prosecute any alcohol or drug abuse patient.[facility]In the event this information is protected by the Federal Confidentiality of Alcohol and Drug Abuse Patient Records regulations: The Federal rules restrict any use of the information to criminally investigate or prosecute any alcohol or drug abuse patient.[facility] CenterIn the event this information is protected by the Federal Confidentiality of Alcohol and Drug Abuse Patient Records regulations: The Federal rules restrict any use of the information to criminally investigate or prosecute any alcohol or drug abuse patient.[facility] CenterIn the event this information is protected by the Federal Confidentiality of Alcohol and Drug Abuse Patient Records regulations: The Federal rules restrict any use of the information to criminally investigate or prosecute any alcohol or drug abuse patient.[facility]In the event this information is protected by the Federal Confidentiality of Alcohol and Drug Abuse Patient Records regulations: The Federal rules restrict any use of the information to criminally investigate or prosecute any alcohol or drug abuse patient.[facility]In the event this information is protected by the Federal Confidentiality of Alcohol and Drug Abuse Patient Records regulations: The Federal rules restrict any use of the information to criminally investigate or prosecute any alcohol or drug abuse patient.[facility]In the event this information is protected by the Federal Confidentiality of Alcohol and Drug Abuse Patient Records regulations: The Federal rules restrict any use of the information to criminally investigate or prosecute any alcohol or drug abuse patient.[facility]In the event this information is protected by the Federal Confidentiality of Alcohol and Drug Abuse Patient Records regulations: The Federal rules restrict any use of the information to criminally investigate or prosecute any alcohol or drug abuse patient.[facility]In the event this information is protected by the Federal Confidentiality of Alcohol and Drug Abuse Patient Records regulations: The Federal rules restrict any use of the information to criminally investigate or prosecute any alcohol or drug abuse patient.[facility]In the event this information is protected by the Federal Confidentiality of Alcohol and Drug Abuse Patient Records regulations: The Federal rules restrict any use of the information to criminally investigate or prosecute any alcohol or drug abuse patient.[facility]In the event this information is protected by the Federal Confidentiality of Alcohol and Drug Abuse Patient Records regulations: The Federal rules restrict any use of the information to criminally investigate or prosecute any alcohol or drug abuse patient.[facility]In the event this information is protected by the Federal Confidentiality of Alcohol and Drug Abuse Patient Records regulations: The Federal rules restrict any use of the information to criminally investigate or prosecute any alcohol or drug abuse patient.[facility]In the event this information is protected by the Federal Confidentiality of Alcohol and Drug Abuse Patient Records regulations: The Federal rules restrict any use of the information to criminally investigate or prosecute any alcohol or drug abuse patient.[facility]In the event this information is protected by the Federal Confidentiality of Alcohol and Drug Abuse Patient Records regulations: The Federal rules restrict any use of the information to criminally investigate or prosecute any alcohol or drug abuse patient.[facility]In the event this information is protected by the Federal Confidentiality of Alcohol and Drug Abuse Patient Records regulations: The Federal rules restrict any use of the information to criminally investigate or prosecute any alcohol or drug abuse patient.[facility]In the event this information is protected by the Federal Confidentiality of Alcohol and Drug Abuse Patient Records regulations: The Federal rules restrict any use of the information to criminally investigate or prosecute any alcohol or drug abuse patient.[facility]In the event this information is protected by the Federal Confidentiality of Alcohol and Drug Abuse Patient Records regulations: The Federal rules restrict any use of the information to criminally investigate or prosecute any alcohol or drug abuse patient.[facility]In the event this information is protected by the Federal Confidentiality of Alcohol and Drug Abuse Patient Records regulations: The Federal rules restrict any use of the information to criminally investigate or prosecute any alcohol or drug abuse patient.[facility]In the event this information is protected by the Federal Confidentiality of Alcohol and Drug Abuse Patient Records regulations: The Federal rules restrict any use of the information to criminally investigate or prosecute any alcohol or drug abuse patient.[facility]In the event this information is protected by the Federal Confidentiality of Alcohol and Drug Abuse Patient Records regulations: The Federal rules restrict any use of the information to criminally investigate or prosecute any alcohol or drug abuse patient.[facility]In the event this information is protected by the Federal Confidentiality of Alcohol and Drug Abuse Patient Records regulations: The Federal rules restrict any use of the information to criminally investigate or prosecute any alcohol or drug abuse patient.[facility]In the event this information is protected by the Federal Confidentiality of Alcohol and Drug Abuse Patient Records regulations: The Federal rules restrict any use of the information to criminally investigate or prosecute any alcohol or drug abuse patient.[facility]In the event this information is protected by the Federal Confidentiality of Alcohol and Drug Abuse Patient Records regulations: The Federal rules restrict any use of the information to criminally investigate or prosecute any alcohol or drug abuse patient.[facility]In the event this information is protected by the Federal Confidentiality of Alcohol and Drug Abuse Patient Records regulations: The Federal rules restrict any use of the information to criminally investigate or prosecute any alcohol or drug abuse patient.[facility]In the event this information is protected by the Federal Confidentiality of Alcohol and Drug Abuse Patient Records regulations: The Federal rules restrict any use of the information to criminally investigate or prosecute any alcohol or drug abuse patient.[facility]In the event this information is protected by the Federal Confidentiality of Alcohol and Drug Abuse Patient Records regulations: The Federal rules restrict any use of the information to criminally investigate or prosecute any alcohol or drug abuse patient.[facility]In the event this information is protected by the Federal Confidentiality of Alcohol and Drug Abuse Patient Records regulations: The Federal rules restrict any use of the information to criminally investigate or prosecute any alcohol or drug abuse patient.[facility]In the event this information is protected by the Federal Confidentiality of Alcohol and Drug Abuse Patient Records regulations: The Federal rules restrict any use of the information to criminally investigate or prosecute any alcohol or drug abuse patient.[facility]In the event this information is protected by the Federal Confidentiality of Alcohol and Drug Abuse Patient Records regulations: The Federal rules restrict any use of the information to criminally investigate or prosecute any alcohol or drug abuse patient.[facility]In the event this information is protected by the Federal Confidentiality of Alcohol and Drug Abuse Patient Records regulations: The Federal rules restrict any use of the information to criminally investigate or prosecute any alcohol or drug abuse patient.[facility]In the event this information is protected by the Federal Confidentiality of Alcohol and Drug Abuse Patient Records regulations: The Federal rules restrict any use of the information to criminally investigate or prosecute any alcohol or drug abuse patient.[facility]In the event this information is protected by the Federal Confidentiality of Alcohol and Drug Abuse Patient Records regulations: The Federal rules restrict any use of the information to criminally investigate or prosecute any alcohol or drug abuse patient.[facility]In the event this information is protected by the Federal Confidentiality of Alcohol and Drug Abuse Patient Records regulations: The Federal rules restrict any use of the information to criminally investigate or prosecute any alcohol or drug abuse patient.[facility]In the event this information is protected by the Federal Confidentiality of Alcohol and Drug Abuse Patient Records regulations: The Federal rules restrict any use of the information to criminally investigate or prosecute any alcohol or drug abuse patient.[facility]In the event this information is protected by the Federal Confidentiality of Alcohol and Drug Abuse Patient Records regulations: The Federal rules restrict any use of the information to criminally investigate or prosecute any alcohol or drug abuse patient.[facility]In the event this information is protected by the Federal Confidentiality of Alcohol and Drug Abuse Patient Records regulations: The Federal rules restrict any use of the information to criminally investigate or prosecute any alcohol or drug abuse patient.[facility]In the event this information is protected by the Federal Confidentiality of Alcohol and Drug Abuse Patient Records regulations: The Federal rules restrict any use of the information to criminally investigate or prosecute any alcohol or drug abuse patient.[facility]In the event this information is protected by the Federal Confidentiality of Alcohol and Drug Abuse Patient Records regulations: The Federal rules restrict any use of the information to criminally investigate or prosecute any alcohol or drug abuse patient.[facility]In the event this information is protected by the Federal Confidentiality of Alcohol and Drug Abuse Patient Records regulations: The Federal rules restrict any use of the information to criminally investigate or prosecute any alcohol or drug abuse patient.[facility]In the event this information is protected by the Federal Confidentiality of Alcohol and Drug Abuse Patient Records regulations: The Federal rules restrict any use of the information to criminally investigate or prosecute any alcohol or drug abuse patient.[facility]In the event this information is protected by the Federal Confidentiality of Alcohol and Drug Abuse Patient Records regulations: The Federal rules restrict any use of the information to criminally investigate or prosecute any alcohol or drug abuse patient.[facility]In the event this information is protected by the Federal Confidentiality of Alcohol and Drug Abuse Patient Records regulations: The Federal rules restrict any use of the information to criminally investigate or prosecute any alcohol or drug abuse patient.[facility]In the event this information is protected by the Federal Confidentiality of Alcohol and Drug Abuse Patient Records regulations: The Federal rules restrict any use of the information to criminally investigate or prosecute any alcohol or drug abuse patient.[facility]In the event this information is protected by the Federal Confidentiality of Alcohol and Drug Abuse Patient Records regulations: The Federal rules restrict any use of the information to criminally investigate or prosecute any alcohol or drug abuse patient.[facility]In the event this information is protected by the Federal Confidentiality of Alcohol and Drug Abuse Patient Records regulations: The Federal rules restrict any use of the information to criminally investigate or prosecute any alcohol or drug abuse patient.[facility]In the event this information is protected by the Federal Confidentiality of Alcohol and Drug Abuse Patient Records regulations: The Federal rules restrict any use of the information to criminally investigate or prosecute any alcohol or drug abuse patient.[facility]In the event this information is protected by the Federal Confidentiality of Alcohol and Drug Abuse Patient Records regulations: The Federal rules restrict any use of the information to criminally investigate or prosecute any alcohol or drug abuse patient.[facility]In the event this information is protected by the Federal Confidentiality of Alcohol and Drug Abuse Patient Records regulations: The Federal rules restrict any use of the information to criminally investigate or prosecute any alcohol or drug abuse patient.[facility]In the event this information is protected by the Federal Confidentiality of Alcohol and Drug Abuse Patient Records regulations: The Federal rules restrict any use of the information to criminally investigate or prosecute any alcohol or drug abuse patient.[facility]In the event this information is protected by the Federal Confidentiality of Alcohol and Drug Abuse Patient Records regulations: The Federal rules restrict any use of the information to criminally investigate or prosecute any alcohol or drug abuse patient.[facility] CenterIn the event this information is protected by the Federal Confidentiality of Alcohol and Drug Abuse Patient Records regulations: The Federal rules restrict any use of the information to criminally investigate or prosecute any alcohol or drug abuse patient.[facility] CenterIn the event this information is protected by the Federal Confidentiality of Alcohol and Drug Abuse Patient Records regulations: The Federal rules restrict any use of the information to criminally investigate or prosecute any alcohol or drug abuse patient.[facility] CenterIn the event this information is protected by the Federal Confidentiality of Alcohol and Drug Abuse Patient Records regulations: The Federal rules restrict any use of the information to criminally investigate or prosecute any alcohol or drug abuse patient.[facility] CenterIn the event this information is protected by the Federal Confidentiality of Alcohol and Drug Abuse Patient Records regulations: The Federal rules restrict any use of the information to criminally investigate or prosecute any alcohol or drug abuse patient.[facility] CenterIn the event this information is protected by the Federal Confidentiality of Alcohol and Drug Abuse Patient Records regulations: The Federal rules restrict any use of the information to criminally investigate or prosecute any alcohol or drug abuse patient.[facility] CenterIn the event this information is protected by the Federal Confidentiality of Alcohol and Drug Abuse Patient Records regulations: The Federal rules restrict any use of the information to criminally investigate or prosecute any alcohol or drug abuse patient.[facility] CenterIn the event this information is protected by the Federal Confidentiality of Alcohol and Drug Abuse Patient Records regulations: The Federal rules restrict any use of the information to criminally investigate or prosecute any alcohol or drug abuse patient.[facility] CenterIn the event this information is protected by the Federal Confidentiality of Alcohol and Drug Abuse Patient Records regulations: The Federal rules restrict any use of the information to criminally investigate or prosecute any alcohol or drug abuse patient.[facility] CenterIn the event this information is protected by the Federal Confidentiality of Alcohol and Drug Abuse Patient Records regulations: The Federal rules restrict any use of the information to criminally investigate or prosecute any alcohol or drug abuse patient.[facility] CenterIn the event this information is protected by the Federal Confidentiality of Alcohol and Drug Abuse Patient Records regulations: The Federal rules restrict any use of the information to criminally investigate or prosecute any alcohol or drug abuse patient.[facility] Care Teams (unrecognized sec tion and content) Squeak Rattle And Leak Repairer Relationship Specialty Start Date End Date Da Castro MD [address] [place] [address] PCP - General Internal Medicine 04/03/15 Varun Aguilar, lawyer criminalJuvenile Correctional Officer Internal Medicine 01/04/21 Squeak Rattle And Leak Repairer Relationship Specialty Start Date End Date Da Castro MD [address] [place] [address] PCP - General Internal Medicine 04/03/15 Varun Aguilar, lawyer criminalJuvenile Correctional Officer Internal Medicine 01/04/21 Squeak Rattle And Leak Repairer Relationship Specialty Start Date End Date Da Castro MD [address] [place] [address] PCP - General Internal Medicine 04/03/15 Varun Aguilar, lawyer criminalJuvenile Correctional Officer Internal Medicine 01/04/21 Squeak Rattle And Leak Repairer Relationship Specialty Start Date End Date Da Castro MD [address] [place] [address] PCP - General Internal Medicine 04/03/15 Varun Aguilar, lawyer criminalJuvenile Correctional Officer Internal Medicine 01/04/21 Squeak Rattle And Leak Repairer Relationship Specialty Start Date End Date Da Castro MD [address] [place] [address] PCP - General Internal Medicine 04/03/15 Varun Aguilar, lawyer criminalJuvenile Correctional Officer Internal Medicine 01/04/21 Squeak Rattle And Leak Repairer Relationship Specialty Start Date End Date Da Castro MD [address] [facility] [place] [address] PCP - General Internal Medicine 04/03/15 Varun Aguilar, lawyer criminalJuvenile Correctional Officer Internal Medicine 01/04/21 Squeak Rattle And Leak Repairer Relationship Specialty Start Date End Date Da Castro MD [address] [facility] [place] [address] PCP - General Internal Medicine 04/03/15 Varun Aguilar, lawyer criminalJuvenile Correctional Officer Internal Medicine 01/04/21 Squeak Rattle And Leak Repairer Relationship Specialty Start Date End Date Da Castro MD [address] [facility] [place] [address] PCP - General Internal Medicine 04/03/15 Varun Aguilar, lawyer criminalJuvenile Correctional Officer Internal Medicine 01/04/21 Squeak Rattle And Leak Repairer Relationship Specialty Start Date End Date Da Castro MD [address] [facility] [place] [address] PCP - General Internal Medicine 04/03/15 Varun Aguilar, lawyer criminalJuvenile Correctional Officer Internal Medicine 01/04/21 Squeak Rattle And Leak Repairer Relationship Specialty Start Date End Date Da Castro MD [address] [facility] [place] [address] PCP - General Internal Medicine 04/03/15 Varun Aguilar, lawyer criminalJuvenile Correctional Officer Internal Medicine 01/04/21 Squeak Rattle And Leak Repairer Relationship Specialty Start Date End Date Da Castro MD [address] [facility] [place] [address] PCP - General Internal Medicine 04/03/15 Varun Aguilar, lawyer criminalJuvenile Correctional Officer Internal Medicine 01/04/21 Squeak Rattle And Leak Repairer Relationship Specialty Start Date End Date Da Castro MD [address] [facility] [place] [address] PCP - General Internal Medicine 04/03/15 Janay Bond, lawyer criminalJuvenile Correctional Officer Internal Medicine 01/04/21 Squeak Rattle And Leak Repairer Relationship Specialty Start Date End Date Da Castro MD [address] [place] [address] PCP - General Internal Medicine 04/03/15 Janay Bond, lawyer criminalJuvenile Correctional Officer Internal Medicine 01/04/21 Squeak Rattle And Leak Repairer Relationship Specialty Start Date End Date Da Castro MD [address] [place] [address] PCP - General Internal Medicine 04/03/15 Janay Bond, lawyer criminalJuvenile Correctional Officer Internal Medicine 01/04/21 Squeak Rattle And Leak Repairer Relationship Specialty Start Date End Date Da Castro MD [address] [place] [address] PCP - General Internal Medicine 04/03/15 Janay Bond, lawyer criminalJuvenile Correctional Officer Internal Medicine 01/04/21 Squeak Rattle And Leak Repairer Relationship Specialty Start Date End Date Da Castro MD [address] [place] [address] PCP - General Internal Medicine 04/03/15 Janay Bond, lawyer criminalJuvenile Correctional Officer Internal Medicine 01/04/21 Squeak Rattle And Leak Repairer Relationship Specialty Start Date End Date Da Castro MD [address] [place] [address] PCP - General Internal Medicine 04/03/15 Janay Bond, lawyer criminalJuvenile Correctional Officer Internal Medicine 01/04/21 Squeak Rattle And Leak Repairer Relationship Specialty Start Date End Date Da Castro MD [address] [place] [address] PCP - General Internal Medicine 04/03/15 Janay Bond, lawyer criminalJuvenile Correctional Officer Internal Medicine 01/04/21 Squeak Rattle And Leak Repairer Relationship Specialty Start Date End Date Da Castro MD [address] [facility] [place] [address] PCP - General Internal Medicine 04/03/15 Janay Bond, lawyer criminalJuvenile Correctional Officer Internal Medicine 01/04/21 Squeak Rattle And Leak Repairer Relationship Specialty Start Date End Date Da Castro MD [address] [facility] [place] [address] PCP - General Internal Medicine 04/03/15 Janay Bond, lawyer criminalJuvenile Correctional Officer Internal Medicine 01/04/21 Squeak Rattle And Leak Repairer Relationship Specialty Start Date End Date Da Castro MD [address] [facility] [place] [address] PCP - General Internal Medicine 04/03/15 Janay Bond, lawyer criminalJuvenile Correctional Officer Internal Medicine 01/04/21 Squeak Rattle And Leak Repairer Relationship Specialty Start Date End Date Da Castro MD [address] [facility] [place] [address] PCP - General Internal Medicine 04/03/15 Janay Bond, lawyer criminalJuvenile Correctional Officer Internal Medicine 01/04/21 Squeak Rattle And Leak Repairer Relationship Specialty Start Date End Date Da Castro MD [address] [facility] [place] [address] PCP - General Internal Medicine 04/03/15 Janay Bond, lawyer criminalJuvenile Correctional Officer Internal Medicine 01/04/21 Squeak Rattle And Leak Repairer Relationship Specialty Start Date End Date Da Castro MD [address] [place] [address] PCP - General Internal Medicine 04/03/15 Janay Bond, lawyer criminalJuvenile Correctional Officer Internal Medicine 01/04/21 Squeak Rattle And Leak Repairer Relationship Specialty Start Date End Date Da Castro MD [address] [place] [address] PCP - General Internal Medicine 04/03/15 Janay Bond, lawyer criminalJuvenile Correctional Officer Internal Medicine 01/04/21 Squeak Rattle And Leak Repairer Relationship Specialty Start Date End Date Da Castro MD [address] [place] [address] PCP - General Internal Medicine 04/03/15 Janay Bond, lawyer criminalJuvenile Correctional Officer Internal Medicine 01/04/21 Squeak Rattle And Leak Repairer Relationship Specialty Start Date End Date Da Castro MD [address] [place] [address] PCP - General Internal Medicine 04/03/15 Janay Bond, lawyer criminalJuvenile Correctional Officer Internal Medicine 01/04/21 Team Status: Active Member Role Status Dates Dr. Da Castro MD Family Provider Active Dr. Da Castro MD Primary Care Provider Active Team Status: Inactive Member Role Status Dates Dr. Da Castro MD Primary Care Provider Active Dr. Remy Archer , DO Emergency Provider Active Squeak Rattle And Leak Repairer Relationship Specialty Start Date End Date Da Castro MD [address] [place] [address] PCP - General Internal Medicine 04/03/15 Janay Bond, lawyer criminalJuvenile Correctional Officer Internal Medicine 01/04/21 Squeak Rattle And Leak Repairer Relationship Specialty Start Date End Date Da Castro MD [address] [place] [address] PCP - General Internal Medicine 04/03/15 Janay Bond, lawyer criminalJuvenile Correctional Officer Internal Medicine 01/04/21 Squeak Rattle And Leak Repairer Relationship Specialty Start Date End Date Da Castro MD [address] [place] [address] PCP - General Internal Medicine 04/03/15 Janay Bond, lawyer criminalJuvenile Correctional Officer Internal Medicine 01/04/21 Squeak Rattle And Leak Repairer Relationship Specialty Start Date End Date Da Castro MD [address] [facility] [place] [address] PCP - General Internal Medicine 04/03/15 Janay Bond, lawyer criminalJuvenile Correctional Officer Internal Medicine 01/04/21 Squeak Rattle And Leak Repairer Relationship Specialty Start Date End Date Da Castro MD [address] [place] [address] PCP - General Internal Medicine 04/03/15 Janay Bond, lawyer criminalJuvenile Correctional Officer Internal Medicine 01/04/21 Squeak Rattle And Leak Repairer Relationship Specialty Start Date End Date Da Castro MD [address] [place] [address] PCP - General Internal Medicine 04/03/15 Janay Bond, lawyer criminalJuvenile Correctional Officer Internal Medicine 01/04/21 Squeak Rattle And Leak Repairer Relationship Specialty Start Date End Date Da Castro MD [address] [place] [address] PCP - General Internal Medicine 04/03/15 Janay Bond, lawyer criminalJuvenile Correctional Officer Internal Medicine 01/04/21 Squeak Rattle And Leak Repairer Relationship Specialty Start Date End Date Da Castro MD [address] [place] [address] PCP - General Internal Medicine 04/03/15 Janay Bond, lawyer criminalJuvenile Correctional Officer Internal Medicine 01/04/21 Squeak Rattle And Leak Repairer Relationship Specialty Start Date End Date Da Castro MD [address] [place] [address] PCP - General Internal Medicine 04/03/15 Janay Bond, lawyer criminalJuvenile Correctional Officer Internal Medicine 01/04/21 Squeak Rattle And Leak Repairer Relationship Specialty Start Date End Date Da Castro MD [address] [facility] [place] [address] PCP - General Internal Medicine 04/03/15 Janay Bond, lawyer criminalJuvenile Correctional Officer Internal Medicine 01/04/21 Squeak Rattle And Leak Repairer Relationship Specialty Start Date End Date Da Castro MD [address] [facility] [place] [address] PCP - General Internal Medicine 04/03/15 Janay Bond, lawyer criminalJuvenile Correctional Officer Internal Medicine 01/04/21 Squeak Rattle And Leak Repairer Relationship Specialty Start Date End Date Da Castro MD [address] [facility] [place] [address] PCP - General Internal Medicine 04/03/15 Janay Bond, lawyer criminalJuvenile Correctional Officer Internal Medicine 01/04/21 Squeak Rattle And Leak Repairer Relationship Specialty Start Date End Date Da Castro MD [address] [facility] [place] [address] PCP - General Internal Medicine 04/03/15 Janay Bond, lawyer criminalJuvenile Correctional Officer Internal Medicine 01/04/21 Squeak Rattle And Leak Repairer Relationship Specialty Start Date End Date Da Castro MD [address] [facility] [place] [address] PCP - General Internal Medicine 04/03/15 Janay Bond, lawyer criminalJuvenile Correctional Officer Internal Medicine 01/04/21 Squeak Rattle And Leak Repairer Relationship Specialty Start Date End Date Da Castro MD [address] [facility] [place] [address] PCP - General Internal Medicine 04/03/15 Janay Bond, lawyer criminalJuvenile Correctional Officer Internal Medicine 01/04/21 Queenie Rosario PA-C [address] [place] [id number] Commercial Or Institutional Cleaner Family Medicine 08/01/24 Mona Mancilla APRN.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 [address] [place] [address] Commercial Or Institutional Cleaner Internal Medicine 08/01/24 Olesya Stanford PA-C [address] [place] [address] Commercial Or Institutional Cleaner Family [facility] 08/01/24 Squeak Rattle And Leak Repairer Relationship Specialty Start Date End Date Da Castro MD [address] [place] [address] PCP - General Internal Medicine 04/03/15 Mona Mancilla APRN.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 [address] [place] [address] Commercial Or Institutional Cleaner Internal Medicine 08/01/24 Squeak Rattle And Leak Repairer Relationship Specialty Start Date End Date Da Castro MD [address] [place] [address] PCP - General Internal Medicine 04/03/15 Mona Mancilla APRN.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 [address] [place] [address] Commercial Or Institutional Cleaner Internal Medicine 08/01/24 Squeak Rattle And Leak Repairer Relationship Specialty Start Date End Date Da Castro MD [address] [place] [address] PCP - General Internal Medicine 04/03/15 Older, Mona, DRILL SERGEANT.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 [address] [facility] [place], [place] [address] Commercial Or Institutional Cleaner Internal Medicine 08/01/24 Squeak Rattle And Leak Repairer Relationship Specialty Start Date End Date Da Castro MD [address] [facility], [place] [address] PCP - General Internal Medicine 04/03/15 Older, Mona, DRILL SERGEANT.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 [address] [facility] [place], [place] [address] Commercial Or Institutional Cleaner Internal Medicine 08/01/24 Squeak Rattle And Leak Repairer Relationship Specialty Start Date End Date Da Castro MD [address] [facility], [place] [address] PCP - General Internal Medicine 04/03/15 Older, Mona, DRILL SERGEANT.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 [address] [facility] [place], [place] [address] Commercial Or Institutional Cleaner Internal Medicine 08/01/24 Team Status: Active Member Role Status Dates Dr. Da Castro MD Primary Care Provider Active Team Status: Inactive Member Role Status Dates Dr. Da Castro MD Primary Care Provider Active Start: December 31, 2024 End: December 31, 2024 Dr. Johnson Osborne DO Emergency Provider Active Start: December 31, 2024 End: December 31, 2024 Team Status: Inactive Member Role Status Dates Dr. Da Castro MD Primary Care Provider Active Start: December 31, 2024 End: December 31, 2024 Dr. Johnson Osborne DO Attending Provider Active Start: December 31, 2024 End: December 31, 2024 Dr. Johnson Osborne DO Emergency Provider Active Start: December 31, 2024 End: December 31, 2024 Team Status: Active Member Role Status Dates Dr. Da Castro MD Primary Care Provider Active Start: January 10, 2025 Dr. Gus Garza DO Emergency Provider Active Start: January 10, 2025 Dr. Jose David Brown MD Admit Provider Active Start: January 10, 2025 Dr. Jose David Brown MD Attending Provider Active Start: January 10, 2025 Team Status: Inactive Member Role Status Dates Dr. Da Castro MD Primary Care Provider Active Start: January 10, 2025 End: January 11, 2025 Dr. Gus Garza DO Emergency Provider Active Start: January 10, 2025 End: January 11, 2025 Dr. Jose David Brown MD Admit Provider Active Start: January 10, 2025 End: January 11, 2025 Dr. Jose David Brown MD Attending Provider Active Start: January 10, 2025 End: January 11, 2025 Dr. Kavitha Renae MD Other Provider Active Star t: January 10, 2025 End: January 11, 2025 Team Status: Active Member Role Status Dates Dr. Da Castro MD Primary Care Provider Active Start: January 10, 2025 Dr. Gus Garza DO Emergency Provider Active Start: January 10, 2025 Dr. Jose David Brown MD Admit Provider Active Start: January 10, 2025 Dr. Jose David Brown MD Attending Provider Active Start: January 10, 2025 Dr. Jose David Brown MD Other Provider Active Start: January 10, 2025 Dr. Kavitha Renae MD Other Provider Active Star t: January 10, 2025 Team Status: Active Member Role Status Dates Dr. Da Castro MD Primary Care Provider Active Start: January 11, 2025 Dr. Gus Garza DO Emergency Provider Active Start: January 11, 2025 Dr. Jose David Brown MD Admit Provider Active Start: January 11, 2025 Dr. Jose David Brown MD Attending Provider Active Start: January 11, 2025 Dr. Jose David Brown MD Other Provider Active Start: January 11, 2025 Dr. Kavitha Renae MD Other Provider Active Star t: May 20th, 2025 Squeak Rattle And Leak Repairer Relationship Specialty Start Date End Date Da Castro MD [address] [place] [address] PCP - General Internal Medicine 04/03/15 Mona Mancilla APRN.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 [address] [facility] [place] [address] Commercial Or Institutional Cleaner Internal Medicine 08/01/24 Squeak Rattle And Leak Repairer Relationship Specialty Start Date End Date Da Castro MD [address] [place] [address] PCP - General Internal Medicine 04/03/15 Mona Mancilla APRN.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 [address] [facility] [place] [address] Commercial Or Institutional Cleaner Internal Medicine 08/01/24 Squeak Rattle And Leak Repairer Relationship Specialty Start Date End Date Da Castro MD [address] [place] [address] PCP - General Internal Medicine 04/03/15 Mona Mancilla APRN.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 [address] [facility] [place] [address] Commercial Or Institutional Cleaner Internal Medicine 08/01/24 Squeak Rattle And Leak Repairer Relationship Specialty Start Date End Date Da Castro MD [address] [place] [address] PCP - General Internal Medicine 04/03/15 Mona Mancilla APRN.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 [address] [facility] [place] [address] Commercial Or Institutional Cleaner Internal Medicine 08/01/24 Team Status: Active Member Role/Relationship Status Dates Dr. Da Castro MD Primary Care Provider Active Team Status: Inactive Member Role/Relationship Status Dates Dr. Da Castro MD Primary Care Provider Active Start: December 31, 2024 End: December 31, 2024 Dr. Johnson Osborne DO Attending Provider Active Start: December 31, 2024 End: December 31, 2024 Dr. Johnson Osborne DO Emergency Provider Active Start: December 31, 2024 End: December 31, 2024 Team Status: Inactive Member Role/Relationship Status Dates Dr. Da Castro MD Primary Care Provider Active Start: January 10, 2025 End: January 11, 2025 Dr. Gus Garza DO Emergency Provider Active Start: January 10, 2025 End: January 11, 2025 Dr. Jose David Brown MD Admit Provider Active Start: January 10, 2025 End: January 11, 2025 Dr. Jose David Brown MD Attending Provider Active Start: January 10, 2025 End: January 11, 2025 Dr. Kavitha Renae MD Other Provider Active Star t: January 10, 2025 End: January 11, 2025 Team Status: Active Member Role/Relationship Status Dates Dr. Da Castro MD Primary Care Provider Active Start: January 10, 2025 Dr. Gus Garza DO Emergency Provider Active Start: January 10, 2025 Dr. Jose David Brown MD Admit Provider Active Start: January 10, 2025 Dr. Jose David Brown MD Attending Provider Active Start: January 10, 2025 Dr. Jose David Brown MD Other Provider Active Start: January 10, 2025 Dr. Kavitha Renae MD Other Provider Active Star t: January 10, 2025 Team Status: Active Member Role/Relationship Status Dates Dr. Da Castro MD Primary Care Provider Active Start: January 11, 2025 Dr. Gus Garza DO Emergency Provider Active Start: January 11, 2025 Dr. Jose David Brown MD Admit Provider Active Start: January 11, 2025 Dr. Jose David Brown MD Attending Provider Active Start: January 11, 2025 Dr. Jose David Brown MD Other Provider Active Start: January 11, 2025 Dr. Kavitha Renae MD Other Provider Active Star t: January 11, 2025 Team Status: Active Member Role/Relationship Status Dates Dr. Da Castro MD Primary Care Provider Active Start: February 09, 2025 Dr. Da Castro MD Referring Provider Active Start: February 09, 2025 Dr. Frankie Arrington MD Attending Provider Active Start: February 09, 2025 Dr. Frankie Arrington MD Other Provider Active Sta rt: February 09, 2025 Team Status: Inactive Member Role/Relationship Status Dates Dr. Da Castro MD Primary Care Provider Active Start: February 16, 2025 End: February 21, 2025 Dr. Da Castro MD Referring Provider Active Start: February 16, 2025 End: February 21, 2025 Dr. Frankie Arrington MD Attending Provider Active Start: February 16, 2025 End: February 21, 2025 Team Status: Active Member Role/Relationship Status Dates Dr. Da Castro MD Primary Care Provider Active Start: February 18, 2025 Dr. Da Castro MD Referring Provider Active Start: February 18, 2025 Dr. Frankie Arrington MD Attending Provider Active Start: February 18, 2025 Dr. Frankie Arrington MD Other Provider Active Sta rt: February 18, 2025 Squeak Rattle And Leak Repairer Relationship Specialty Start Date End Date Da Castro MD [address] [place] [address] PCP - General Internal Medicine 04/03/15 Mona Mancilla APRN.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 [address] [place] [address] Commercial Or Institutional Cleaner Internal Medicine 08/01/24 Team Status: Active Member Role/Relationship Status Dates Dr. Da Castro MD Primary Care Provider Active Start: February 16, 2025 Dr. Da Castro MD Referring Provider Active Start: February 16, 2025 Dr. Frankie Arrington MD Attending Provider Active Start: February 16, 2025 Dr. Frankie Arrington MD Other Provider Active Sta rt: February 16, 2025 Team Status: Active Member Role/Relationship Status Dates Dr. Da Castro MD Primary Care Provider Active Start: February 22, 2025 Dr. Da Castro MD Referring Provider Active Start: February 22, 2025 Dr. Frankie Arrington MD Attending Provider Active Start: February 22, 2025 Dr. Frankie Arrington MD Other Provider Active Sta rt: February 22, 2025 Team Status: Inactive Member Role/Relationship Status Dates Dr. Da Castro MD Primary Care Provider Active Start: March 01, 2025 End: March 24, 2025 Dr. Da Castro MD Referring Provider Active Start: March 01, 2025 End: March 24, 2025 Dr. Frankie Arrington MD Attending Provider Active Start: March 01, 2025 End: March 24, 2025 Team Status: Active Member Role/Relationship Status Dates Dr. Da Castro MD Primary Care Provider Active Start: March 01, 2025 Dr. Da Castro MD Referring Provider Active Start: March 01, 2025 Dr. Frankie Arrington MD Attending Provider Active Start: March 01, 2025 Dr. Frankie Arrington MD Other Provider Active Sta rt: March 01, 2025 [employer] R[employer] Leak Repairer Relationship Specialty Start Date End Date Da Castro MD [address] [place] [address] PCP - General Internal Medicine 04/03/15 Mona Mancilla APRN.CNP [address] [place] [address] Commercial Or Institutional Cleaner Internal Medicine 08/01/24 Goals (unrecognized section and content) Goals may be documented in a n alternate sectionGoals may be documented in an alternate sectionGoals may be documented in an alternate sectionGoals may be documented in an alternate sectionGoals may be documented in an alternate sectionGoals may be documented in an alternate sectionGoals may be documented in an alternate sectionGoals may be documented in an alternate sectionGoals may be documented in an alternate sectionGoals may be documented in an alternate section Reason for Visit (unrecogniz ed section and content) Reason Onset Date Comments Community Monitoring Outreach 11/27/2021 [place] [facility] Telephonic CDM Outreach Reason Onset Date Comments Community Monitoring Outreach 11/28/2021 [place] [facility] Tele[place] CDM Outreach Reason Onset Date Comments Community Monitoring Outreach 12/13/2021 [place] [facility] Tele[place]onic CDM Outreach Reason Onset Date Comments Community Monitoring Outreach 12/28/2021 [place] [facility] Tele[place]onic CDM Outreach Reason Onset Date Comments Community Monitoring Outreach 01/09/2022 [place] [facility] Tele[facility]M Outreach Reason Comments Established Patient medicare wellness- l eft lower leg injury from weed eater Reason Comments Spirometry Specialty Diagnoses / Procedures Referred By Contac t Referred To Contact [facility] Diagnoses Chronic obstructive pulmonary disease, unspecified COPD type (HCC) Procedures SPIROMETRY - BASELINE AND POST DILATOR BRNCDILAT RSPSE SPMTRY PRE&POST-BRNCDILAT ADMDa Reynolds MD [address] [place] [address] [facility] [place] [address] [place] [address] Referral ID Status Reason Start Date Expiration Date V isits Requested Visits Authorized [id number] Closed Auto-Generate d Referral 01/23/2022 02/22/2023 1 1 Reason Comments Results Reason Onset Date Comments Community Monitoring Outreach 02/08/2022 [place] [facility] Telephonic CDM Outreach Reason Comments Established Patient wound check on left lower leg, and c/o dizziness this AM Reason Comments Recheck 2 week f/u - dizzine ss Reason Onset Date Comments Community Monitoring Outreach 03/14/2022 [place] [facility] Telephonic CDM Outreach Reason Onset Date Comments Community Monitoring Outreach 03/29/2022 [place] [facility] Tele[place]onic CDM Outreach Reason Onset Date Comments Community Monitoring Outreach 04/15/2022 Reason Onset Date Comments Community Monitoring Outreach 05/17/2022 Reason Onset Date Comments Community Monitoring Outreach 06/07/2022 Reason Onset Date Comments Recheck 3 month Immunizations 06/11/2022 Flu vaccination Reason Onset Date Comments Community Monitoring Outreach 06/27/2022 Reason Onset Date Comments Community Monitoring Outreach 07/30/2022 Reason Onset Date Comments Community Monitoring Outreach 08/30/2022 Reason Onset Date Comments Community Monitoring Outreach 10/03/2022 Reason Comments Viral Syndrome Reason Comments Patient Question Reason Comments Refill Request Reason Onset Date Comments Community Monitoring Outreach 10/25/2022 Reason Onset Date Comments Community Monitoring Outreach 11/01/2022 Reason Onset Date Comments Community Monitoring Outreach 11/04/2022 Reason Onset Date Comments Community Monitoring Outreach 12/03/2022 Reason Onset Date Comments Refill Request 12/16/2022 Reason Onset Date Comments [facility] Monitoring Outreach 12/26/2022 Reason Onset Date Comments Community Monitoring Outreach 01/22/2023 Reason Onset Date Comments [facility] Monitoring Outreach 02/14/2023 Reason Onset Date Comments Community Monitoring Outreach 03/24/2023 Reason Onset Date Comments [facility] Monitoring Outreach 04/24/2023 Reason Onset Date Comments [facility] Monitoring Outreach 06/16/2023 Reason Comments F/U 6 months med refills needed Reason Onset Date Comments Refill Request 07/08/2023 Reason Comments Cough Chills, aching all o cindy x 2 days Reason Onset Date Comments [facility] Monitoring Outreach 07/28/2023 Reason Onset Date Comments [facility] Monitoring Outreach 10/07/2023 Reason Onset Date Comments [facility] Monitoring Outreach 11/12/2023 Reason Comments ER F/U diverticulitis Reason Comments Abdominal Pain Recent ED visit to [facility] for abd pain 11/18/2023 -- CT scan abd/pelv showed diverticulitis and large hiatal hernia Specialty Diagnoses / Procedures Referred By Zak weber Referred To Contact General Surgery Diagnoses Diverticulitis Hiatal hernia Procedures CONSULT TO GENERAL SURGERY OFFICE/OUTPATIENT [facility] 60 MINUTES Shelia Franklin APRN.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 [address] [place] [address] Referral ID Status Reason Start Date Expiration Date V isits Requested Visits Authorized [id number] Closed PCP Requested Referral 11/24/2023 11/23/2024 1 1 Reason Onset Date Comments [facility] Monitoring Outreach 12/17/2023 Reason Comments F/U 6 months Reason Onset Date Comments Community Monitoring Outreach 02/05/2024 Reason Comments Thumb Injury Stuck a needle in it x6 days red and swollen Reason Onset Date Comments [facility] 03/12/2024 Reason Comments Wrist/forearm Injury R wrist and hand in jury x this AM Reason Onset Date Comments Escalation of Care 04/16/2024 Reason Comments Patient Update Reason Onset Date Comments [facility] 04/17/2024 OPENED IN ERROR Reason Onset Date Comments [facility] 04/17/2024 Escalation Follo w - Up Reason Onset Date Comments [facility] 05/06/2024 Telephonic Outre ach Reason Onset Date Comments [facility] 06/02/2024 Chronic Disease Management Routine Call Reason Onset Date Comments [facility] 06/30/2024 Chronic Disease Management Routine Call Reason Onset Date Comments Medicare Wellness Exam Medicare Wellness Immunizations 07/12/2024 Flu vaccination Reason Onset Date Comments [facility] 08/02/2024 Chronic Disease Management Routine Call Reason Onset Date Comments Refill Request 11/23/2024 Reason Comments Wound Check Sore on L lower leg x 2 weeks Reason Comments Recheck Cellulitis follow up Reason Comments Recheck Follow up cellulitis and BP Reason Comments Low Back Pain Midline low back desi n x1 day, was lifting gas can to mower, felt sharp pain Reason Comments Appointment Reason Comments Hospital F/U Reason Comments Derm Problem Reason Comments 1 WEEK F/U Ulcer of left lower extremity Reason Comments Non-Chemotherapy Treatment Specialty Diagnoses / Procedures Referred By Contac t Referred To Contact Diagnoses Osteoporotic compression fracture of vertebra with delayed healing, subsequent encounter Da Castro MD [address] [place] [address] Phone: tel: fax: Da Castro MD [address] [place] [address] Phone: tel: fax: Referral ID Status Reason Start Date Expiration Date V isits Requested Visits Authorized [id number] Authorized 2025 04/18/2025 99 99 Reason Onset Date Comments 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 This clinical summary was aggregated from multiple sources. Caution should be exercised in using it in the provision of clinical care. This summary normalizes information from multiple sources, and as a consequence, information in this document may materially change the coding, format and clinical context of patient data. In addition, data may be omitted in some cases. CLINICAL DECISIONS SHOULD BE BASED ON THE PRIMARY CLINICAL RECORDS. [employer] provides no warranty or guarantee of the accuracy or completeness of information in this document.
[2025-06-10 19:25] VITALS: BP 111/69; PULSE 85
--- NOTE | 2025-06-10 19:37 | ED.VIS.FALL ---
HPI HPI - Fall History of Present Illness Chief Complaint: Fall Detail of Chief Complaint: Scalp laceration. Informant: patient and family Occured/Mechanism Occurred: Today Mechanism/Context: Yes same level fall and Yes trip Usually ambulates: Without assistance Pain/Injury Pain Location: head, neck and upper extremity Quality of Pain: Dull and Aching Current Severity: Moderate Maximum Severity: Moderate Associated Symptoms Associated Symptoms: Negative for Parasthesias, Weakness, Loss of function, Inability to ambulate, Loss of consciousness or Amnesia Narrative Narrative: 85-year-old female was with family they were going out to eat she fell outside the restaurant hitting the cement causing laceration back of her scalp. Denies any vomiting or loss conscious she is on no blood thinners. She was brought in by squad with a c-collar in place. She just says her neck stiff has not have any severe neck pain. The initial fall occurred around 5 PM. 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 Home Medications ?Medication ?Instructions ?Recorded ?Last Taken ?Type furosemide 20 mg tablet 20 mg PO DAILY PRN PRN leg 11/29/20 01/10/25 08:00 Rx swelling ##0 20 mg esomeprazole magnesium 40 mg 40 mg PO QAM #90 caps 07/06/24 01/10/25 08:00 Rx capsule,delayed release 40 mg amlodipine 2.5 mg tablet 2.5 mg PO DAILY 01/10/25 01/10/25 08:00 History 2.5 mg calcium carbonate (Oyster Shell 500 mg PO DAILY 01/10/25 01/10/25 08:00 History Calcium) 500 mg lisinopril 20 mg tablet 20 mg PO DAILY 01/10/25 01/10/25 08:00 History 20 mg lysine 500 mg tablet (L-Lysine) 500 mg PO DAILY 01/10/25 01/10/25 08:00 History 500 mg oxycodone 5 mg tablet 5 mg PO Q4H PRN PRN Pain Score 01/10/25 Unknown Rx 4-10 4 days #15 tabs vit C 250 mg-vit E 90 mg-zinc 40 1 tab PO BID eye health 01/10/25 01/10/25 08:00 History mg-copper 1 [id number] 1 TAB capsule (PreserVision AREDS-2) zinc acetate 50 mg (zinc) capsule 50 mg PO DAILY 01/10/25 01/10/25 08:00 History (Galzin) 50 mg naproxen 500 mg tablet 500 mg PO BID PRN PRN pain 02/09/25 Unknown History oxycodone 5 mg capsule 5 mg PO Q6H PRN PRN pain 02/09/25 Unknown History levofloxacin 500 mg tablet 500 mg PO DAILY Wound Infection 02/15/25 Unknown Rx #10 tabs Allergy/AdvReac Type Severity Reaction Status Date / Time Latex, Natural Rubber Allergy Mild Verified 06/10/25 17:24 simvastatin (From Zocor) Allergy Mild Verified 06/10/25 17:24 guaifenesin (From Robitussin) Allergy Unknown Verified 06/10/25 17:24 Penicillins Allergy Anaphylaxis Verified 06/10/25 17:24 Sulfa (Sulfonamide Allergy Unknown Verified 06/10/25 17:24 Antibiotics) Family History Mother Colon cancer Father Colon cancer Sister Breast cancer Diabetes CVA (cerebral vascular accident) Cervical cancer Brother Heart disease Daughter COPD (chronic obstructive pulmonary disease) Son Diabetes Surgical History History of cataract extraction History of amputation of right great toe History of appendectomy history of left arm surgery history of hand reconstruction Social History Smoking Status: Never smoker ROS ROS ED ROS Narrative Denies recent illness. Constitutional Constitutional ED: Denies chills or fever(s) ENT ENT ED: Denies ear pain Respiratory/Chest Respiratory/Chest: Denies cough or dyspnea Gastrointestinal Gastrointestinal: Denies abdominal pain Genitourinary Genitourinary ED: Denies dysuria or hematuria Musculoskeletal Musculoskeletal: Denies arthralgias Integumentary Denies abscess or Abrasions Neurologic Neurologic: Denies headache(s) Psychiatric Psychiatric: Denies anxiety or depression Endocrine Endocrinology: Denies polydipsia or polyphagia Hematologic/Lymphatic Hematologic/Lymphatic: Denies easy bleeding, easy bruising or lymphadenopathy Allergic/Immunologic Allergic/Immunologic ED: Denies mouth swelling, tongue swelling or urticaria EXAM Physical Exam Narrative Exam Narrative: 85-year-old female lying in bed vital signs stable afebrile. She does have bleeding from the back of her scalp. Pupils round react light. Moist mutes membranes. No trauma to her face. 1 inch laceration vertical posterior top of her scalp. [place] of dried blood. No send hematoma. No foreign body. C-spine nontender trachea midline. Lungs clear to auscultation. Heart regular rhythm no murmur. Chest wall ribs nontender. Abdomen soft nontender. Pelvic girdle intact. Moves all 4 extremities. Has some soreness to her right shoulder. Normal paleologist strength. Normal dorsi plantarflexion. Back nontender. Neurologically she is awake alert. Answering questions following commands. Const Vital Signs: 06/10/25 17:21 06/10/25 17:25 06/10/25 17:35 Temperature 98 F Temperature Source Oral Pulse Rate 84 Respiratory Rate 18 Respiratory Effort Normal Blood Pressure 141/115 H 137/85 H Blood Pressure Mean 123 102 Pulse Ox 95 Oxygen Delivery Method Room Air Room Air Room Air 06/10/25 19:25 Temperature Temperature Source Pulse Rate 85 Respiratory Rate Respiratory Effort Blood Pressure 111/69 Blood Pressure Mean 83 Pulse Ox Oxygen Delivery Method MDM MDM MDM Narrative Medical decision making narrative: 85-year-old female scalp laceration she will need repaired. Tetanus will be updated. CAT scan of her head and neck to be obtained. I will obtain an x-ray of her right shoulder. She will be given Tylenol for pain. Tetanus will be updated. Radiography Diagnostic Testing: Clinical Impression(s) from Imaging Studies Brain CT 06/10/25 18:21 IMPRESSION: 1. No acute intracranial abnormality. 2. Mild posterior right parietal scalp contusion/hematoma with laceration. 3. No acute C-spine fracture or subluxation. Multilevel spondylotic changes. Reading Location: [facility] Cervical Spine CT 06/10/25 18:21 IMPRESSION: 1. No acute intracranial abnormality. 2. Mild posterior right parietal scalp contusion/hematoma with laceration. 3. No acute C-spine fracture or subluxation. Multilevel spondylotic changes. Reading Location: [facility] Right shoulder x-ray, 4 views, interpreted by myself and radiologist. She has chronic changes arthritis I do not see any fracture. Radiologist is questioning humeral head irregularity I do not see any fracture. I discussed the x-ray findings with the patient. Procedures Lacerations Scalp laceration 1.5 inches repaired:: Length: 1.5 in Depth: Sub Q Shape: Linear Prep: Shure-Clens Laceration repair: Irrigated, Lidocaine with epi, Local and Wound explored Comment: Posterior scalp laceration 1 to 2 inches in length. Local anesthetized lidocaine with epinephrine. Cleaned with Shur-Clens. Washed irrigated with saline. Explored. There is no step-off of the skull. Irrigated. Closed using 6 kimber. Patient tolerated well. Discharge Plan Triage Chief Complaint: Fall ED Provider: Farhan Arceo Dx/Rx/DC Orders Clinical Impression: Fall, Head injury, Laceration of scalp, Contusion of right shoulder Instructions: ED Head Injury (Adult), ED Laceration Scalp Stitches or Kimber, ED Shoulder Bruise Prescriptions: No Action furosemide 20 mg tablet 20 mg PO DAILY PRN PRN (Reason: leg swelling) Qty: 0 0RF oxycodone 5 mg capsule 5 mg PO Q6H PRN PRN (Reason: pain) naproxen 500 mg tablet 500 mg PO BID PRN PRN (Reason: pain) levofloxacin 500 mg tablet 500 mg PO DAILY Qty: 10 0RF lisinopril 20 mg tablet 20 mg PO DAILY amlodipine 2.5 mg tablet 2.5 mg PO DAILY calcium carbonate [Oyster Shell Calcium] 500 mg calcium (1,250 mg) tablet 500 mg PO DAILY Galzin 50 mg (zinc) capsule 50 mg PO DAILY lysine [L-Lysine] 500 mg tablet 500 mg PO DAILY PreserVision AREDS-2 250-90-40-1 mg capsule 1 tab PO BID oxycodone 5 mg Tablet 5 mg PO Q4H PRN PRN (Reason: Pain Score 4-10) 4 Days Qty: 15 0RF esomeprazole magnesium 40 mg capsule,delayed release(DR/EC) 40 mg PO QAM Qty: 90 1RF Primary Care Provider: Suyapa Jordan Referrals: Suyapa Jordan MD [Primary Care Provider, Internal Medicine] - 10 Day for suture removal Activity Restrictions/Additional Instructions: Tylenol for pain. Ice all sore areas. Including your right shoulder. Kimber out in 10 days. Clean daily with soap and water. Rinse thoroughly. Head injury instructions. You may have some headaches. You may have some nausea. This should progressively improve you have a mild concussion. If you start having intractable vomiting or the worst headache ever or not acting right return. The CAT scans tonight look good of both your head and neck. Ice to your shoulder if is not improving follow-up with your doctor for further evaluation. Print Language: [place] Disposition Disposition: Home, Self Care
--- NOTE | 2025-06-10 19:47 | RAD_ITS ---
PROCEDURE: SHOULDER MIN 2 VIEWS 06/10/2025 REASON FOR EXAM: FALL TECHNIQUE: Procedure Code: RADSH Modality: DX Procedure: SHOULDER MIN 2 VIEWS Laterality: Right COMPARISON: None available FINDINGS: Bones: Questionable irregularity of the humeral head. Joints: No dislocation. Degenerative joint disease at the glenohumeral and acromioclavicular joints. Soft tissues: Unremarkable. Other: Opacifications in the visualized right lung blanco RAD/Shoulder min 2 Views IMPRESSION: Questionable irregularity of the humeral head which may suggest an occult fract ure. No dislocation. 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 Suspect right lung airspace disease. Reading Location: [id number]
[2025-06-10 20:00] VITALS: BP 124/62; PULSE 73; RESP 18; O2SAT 94
[2025-06-10 20:50] VITALS: BP 126/63; PULSE 72; RESP 18; TEMP 36.6; O2SAT 98
== END 2025-06-10 21:12 | disposition home or self-care (01) ==
PROVIDERS: Emergency Provider Emergency Medicine; PCP Internal Medicine; Visit Provider Emergency Medicine
DX: S01.01XA Laceration without foreign body of scalp, initial encounter (principal); J44.9 Chronic obstructive pulmonary disease, unspecified; S40.011A Contusion of right shoulder, initial encounter; I10 Essential (primary) hypertension; W18.30XA Fall on same level, unspecified, initial encounter; Z23 Encounter for immunization
CPT/HCPCS: 12002; 70450; 72125; 73030; 90471; 90715; 99284